=== PATIENT | male | born 1960 | race Caucasian/White ===

== ENCOUNTER 2020-01-15 06:41 | Inpatient (IN) | payer MEDICARE, SELFPAY ==
[2020-01-15] VITALS (36 sets, daily range): BP systolic 63–184; BP diastolic 46–104; PULSE 89–146; RESP 11–20; TEMP 36.8–38.7; O2SAT 87–100; BMI 30.9
--- NOTE | ~2020-01-15 | XR_ITS ---
EXAMINATION: XR chest 1V portable DATE: 01/15/2020 07:18 INDICATION: Altered mental status. Shortness of breath. TECHNIQUE: frontal view of the chest was obtained. COMPARISON: Chest radiograph dated 01/24/2015 FINDINGS: Pulmonary vascular congestion. Bronchial wall thickening no pleural effusion or pneumothorax. And mil d increased interstitial pattern in the right infrahilar region. The cardiomediastinal silhouette is normal. Tubing likely external to the patient projects over the region of the thoracic inlet. IMPRESSION: 1. Pulmonary vascular congestion with bronchial wall thickening and increased interstitial pattern in the right infrahilar region which could represent mild pulmonary edema or pneumonia. Reviewed, dictated and finalized at location A. IMPRESSION: 1. Pulmonary vascular congestion with bronchial wall thickening and increased i nterstitial pattern in the right infrahilar region which could represent mild p ulmonary edema or pneumonia.
--- NOTE | ~2020-01-15 | XR_ITS ---
XR abdomen NG/feed tube insert DATE: 01/15/2020 11:54 INDICATION: Orogastric tube placement TECHNIQUE: Portable AP supine view on 01/15/2020 at 1151 hours COMPARISON: None FINDINGS: The orogastric tube is present in the mid body of the stomach. Right subclavian central venous catheter tip overlies the very upper right atrium. Status post cholecystectomy. IMPRESSION: Orogastric tube in mid body of stomach Reviewed, dictated and finalized at Location A. Reviewed, dictated and finalized at location B.
--- NOTE | ~2020-01-15 | XR_ITS ---
EXAMINATION: XR chest 1V portable DATE: 01/28/2020 11:44 INDICATION: Pneumonia. TECHNIQUE: A single frontal view of the chest was obtained. COMPARISON: Chest single view 01/25/2020 FINDINGS: There are mild airspace opacities in right lower lung zone. No pleural effusion or pneumoth orax. The heart size is normal. Surgical clips in the right upper quadrant are likely from cholecyste ctomy. IMPRESSION: 1. Improved mild airspace opacities in right lower lung zone, consistent with atelectasis versus pneu monia. Reviewed, dictated and finalized at location A. IMPRESSION: 1. Improved mild airspace opacities in right lower lung zone, consistent with a telectasis versus pneumonia.
--- NOTE | ~2020-01-15 | CT_ITS ---
EXAMINATION: CT brain wo con DATE: 01/15/2020 07:55 INDICATION: Altered mental status. Hypoxia. Unresponsive. TECHNIQUE: Computed tomography (CT) of the head was performed without intravenous contrast. Sagittal and coronal reconstructions were performed. The mA was adjusted according to patient size. Iterative reconstruction technique was employed. The dose-length product was 681.00 mGy-cm. COMPARISON: None FINDINGS: Large regions of encephalomalacia in the right frontal and parietal lobes consistent with chronic inf arct in the right middle cerebral artery vascular distribution. Additional old lacunar infarct in the left lentiform nucleus. There is mild scattered white matter hypoattenuation consistent with chronic small vessel ischemic disease. No acute intracranial hemorrhage, acute infarction or abnormal extra axial fluid collection. Ventricles are normal and symmetric. No mass/mass effect. Mild mucosal thicke leatha the paranasal sinuses. The orbits and mastoid air cells are normal. Intracranial calcified cereb ral atherosclerosis is noted. Suboccipital subcutaneous hematoma. No fracture. IMPRESSION: 1. No fracture or acute intracranial process. 2. Chronic infarcts involving significant portion of the right frontal and parietal lobes in the righ t middle cerebral artery vascular redistribution. 3. Small old lacunar infarct at the left lentiform nucleus. 4. Mild scattered white matter hypoattenuation consistent with chronic small vessel ischemic disease. Reviewed, dictated and finalized at location A. IMPRESSION: 1. No fracture or acute intracranial process. 2. Chronic infarcts involving significant portion of the right frontal and camelia etal lobes in the right middle cerebral artery vascular redistribution. 3. Small old lacunar infarct at the left lentiform nucleus. 4. Mild scattered white matter hypoattenuation consistent with chronic small ve ssel ischemic disease.
--- NOTE | ~2020-01-15 | XR_ITS ---
XR chest 1V portable DATE: 01/20/2020 06:14 INDICATION: Pneumonia TECHNIQUE: Portable upright AP chest on 01/20/2020 at 0509 hours COMPARISON: 01/19/2020 portable AP chest at 0537 hours FINDINGS: Endotracheal tube in satisfactory position. NG tube in stomach. Right subclavian central ve nous catheter at superior cavoatrial junction approximately. There are bilateral pulmonary infiltrates involving primarily the lower lung zones. Mild pleural effu sions. IMPRESSION: No significant change since 01/19/2020 Reviewed, dictated and finalized at location A.
--- NOTE | ~2020-01-15 | US_ITS ---
US venous doppler [facility] DATE: 01/21/2020 10:59 INDICATION: Elevated white blood cell count. Diabetes mellitus. TECHNIQUE: Real-time and color flow imaging and Doppler analysis COMPARISON: None FINDINGS: The greater saphenous veins are patent. There is spontaneous and phasic flow and normal aug mentation and color flow signal and normal compression of the deep veins of both lower extremities. T here is limited evaluation of left popliteal vein; otherwise no deep venous thrombosis is evident. IMPRESSION: Limited evaluation of left popliteal vein; otherwise no evidence of deep venous thrombosi s of either lower extremity Reviewed, dictated and finalized at Location A. Reviewed, dictated and finalized at location A. IMPRESSION: Limited evaluation of left popliteal vein; otherwise no evidence of deep venous thrombosis of either lower extremity
--- NOTE | ~2020-01-15 | XR_ITS ---
XR chest 1V portable DATE: 01/21/2020 06:03 INDICATION: Pneumonia. Acute respiratory failure. TECHNIQUE: Portable AP chest on 01/21/2020 at 0512 hours COMPARISON: 01/20/2020 portable AP chest at 0509 hours FINDINGS: Endotracheal tube in satisfactory position 4 cm above raheem. NG tube in gastric fundus. Ri ght subclavian central venous catheter in caudal aspect of superior vena cava. Normal heart size. Aortic arch calcification. Right mid and lower and left lower lung infiltrate and/or atelectasis and probable mild bilateral ple ural effusions, right greater than left. Diffuse osteopenia. IMPRESSION: Bilateral infiltrates and small pleural effusions, right greater than left; little interv al change since 01/20/2020 Reviewed, dictated and finalized at location A. IMPRESSION: Bilateral infiltrates and small pleural effusions, right greater th an left; little interval change since 01/20/2020
--- NOTE | ~2020-01-15 | XR_ITS ---
EXAMINATION: XR chest 1V portable DATE: 01/22/2020 06:03 INDICATION: Pneumonia. Acute respiratory failure. TECHNIQUE: A single frontal view of the chest was obtained. COMPARISON: Chest single view 01/21/2020, chest CT 01/21/2020 FINDINGS: There are small pleural effusions. There are airspace opacities in the lower lung zones. No pneumothorax. The heart size is normal. The endotracheal tube tip is 3.9 cm above the raheem. The na sogastric tube tip is in the stomach. A right subclavian central venous catheter is seen with tip at the superior cavoatrial junction. IMPRESSION: 1. Stable airspace opacities in the lower lung zones, consistent with atelectasis versus pneumonia. 2. Small pleural effusions with improvement on the right. Reviewed, dictated and finalized at location A. IMPRESSION: 1. Stable airspace opacities in the lower lung zones, consistent with atelectas is versus pneumonia. 2. Small pleural effusions with improvement on the right.
--- NOTE | ~2020-01-15 | CT_ITS ---
EXAMINATION: CT chest abdomen pelvis wo con EXAM DATE: 01/21/2020 13:53 INDICATION: Sepsis, respiratory failure. TECHNIQUE: Spiral CT of the chest, abdomen and pelvis was performed without contrast. Axial, lee l and sagittal images were reviewed. Coronal maximum intensity pixel images of chest reviewed. The dose-length product (DLP) for this examination was 1734.01 mGy-cm. The exposure was tailored accordi ng to patient size (auto mA exposure control), and iterative reconstruction (ASIR) was used as additi onal dose reduction technique. There is no prior study for comparison. FINDINGS: CHEST: There is an endotracheal tube in position. Feeding tube is also in position. Small to modera te right, small left pleural effusions. There is multi segmental right basilar airspace disease with volume loss, at least partly atelectasis. Superimposed infection also possible. There is subsegmental left lower lobe airspace disease. There is a right-sided IJ venous line. Right middle lobe granuloma . Tracheobronchial tree is patent. There is no mediastinal, hilar or axillary lymphadenopathy. T here is no pneumothorax. Heart normal in size. No evidence of coronary arterial calcification. ABDOMEN PELVIS: There is a left adrenal gland lesion with macroscopic fat measuring 4.7 cm, a myeloli alonzo. Although typically benign, adrenal lesions are sometimes resected when they reach this size. P robable splenectomy, and surgical changes at the splenic tail. Liver, right adrenal gland are unremar kable. Gallbladder not identified, patient likely has had cholecystectomy. There is a 4 mm left inf erior calyceal stone. The prostate is unremarkable. The bladder is collapsed with Leigh catheter ba lloon anchor inside. There is no retroperitoneal or pelvic lymphadenopathy. There is mild scattere d arteriosclerotic disease. The appendix is normal. The stomach and small bowel are unremarkable. There is moderate amount of c olonic stool. Several subacute left rib fractures anteriorly. No free intraperitoneal gas. There are no osteoblastic or osteolytic lesions identified. IMPRESSION: 1. Multisegmental right lower lobe airspace disease, partly atelectasis but also possibly superimpos ed pneumonia. 2. Small to moderate right, small left pleural effusion. 3. Left adrenal gland myelolipoma. Reviewed, dictated and finalized at location A. IMPRESSION: 1. Multisegmental right lower lobe airspace disease, partly atelectasis but al so possibly superimposed pneumonia. 2. Small to moderate right, small left pleural effusion. 3. Left adrenal gland myelolipoma.
--- NOTE | ~2020-01-15 | XR_ITS ---
EXAMINATION: XR chest 1V portable DATE: 01/19/2020 05:50 INDICATION: Pneumonia. TECHNIQUE: A single frontal view of the chest was obtained. COMPARISON: Chest single view 01/18/2020 FINDINGS: There are small pleural effusions. There are airspace opacities in the lower lung zones. No pneumothorax. The heart size is normal. The endotracheal tube tip is 2.8 cm above the raheem. The na sogastric tube tip is beyond the inferior margin of the radiograph, but at least to the stomach. A ri ght subclavian central venous catheter is seen with tip in the superior vena cava. IMPRESSION: 1. Small pleural effusions with worsening on the left. 2. Stable airspace opacities in the lower lung zones, consistent with atelectasis versus pneumonia. Reviewed, dictated and finalized at location A. IMPRESSION: 1. Small pleural effusions with worsening on the left. 2. Stable airspace opacities in the lower lung zones, consistent with atelectas is versus pneumonia.
--- NOTE | ~2020-01-15 | XR_ITS ---
EXAMINATION: XR chest 1V portable DATE: 01/23/2020 06:35 INDICATION: Pneumonia. Acute respiratory failure. TECHNIQUE: A single frontal view of the chest was obtained. COMPARISON: Chest single view 01/22/2020, chest CT 01/21/2020 FINDINGS: There is a small right pleural effusion. There are airspace opacities in right lower lung z one. A calcified right lung nodule is consistent with old granulomatous disease. There is prominent e xtrapleural fat on the left. No pneumothorax. The heart size is normal. The endotracheal tube tip is 4.0 cm above the raheem. The nasogastric tube tip is in the stomach. Surgical clips in the right uppe r quadrant are likely from cholecystectomy. A right subclavian central venous catheter is seen with t ip at the superior cavoatrial junction. IMPRESSION: 1. Stable small right pleural effusion. 2. Stable airspace opacities in right lower lung zone, consistent with atelectasis versus pneumonia. Reviewed, dictated and finalized at location A. IMPRESSION: 1. Stable small right pleural effusion. 2. Stable airspace opacities in right lower lung zone, consistent with atelecta sis versus pneumonia.
--- NOTE | ~2020-01-15 | XR_ITS ---
EXAMINATION: XR chest 1V portable DATE: 01/16/2020 00:59 INDICATION: Intubation and nasogastric tube placement TECHNIQUE: frontal view of the chest was obtained. COMPARISON: Chest radiograph dated 01/15/2020 FINDINGS: Endotracheal tube tip appears to been withdrawn slightly now likely slightly above the raheem however the raheem is not clearly visualized. Nasogastric tube tip in proximal side port in the body of the stomach. Right internal jugular central venous catheter with distal tip near the superior cavoatrial junction. Mild bilateral increased perihilar interstitial pattern with bronchial wall thickening. No focal cons olidation, pleural effusion or pneumothorax. The cardiomediastinal silhouette is normal. IMPRESSION: 1. Endotracheal tube has been withdrawn with distal tip likely slightly above the raheem however the raheem is not clearly visualized. Consider repeat chest radiograph as clinically indicated. 2. Mild perihilar interstitial pattern which could represent mild pulmonary edema or bronchitis/bronc hiolitis. Reviewed, dictated and finalized at location A. IMPRESSION: 1. Endotracheal tube has been withdrawn with distal tip likely slightly above t he raheem however the raheem is not clearly visualized. Consider repeat chest r adiograph as clinically indicated. 2. Mild perihilar interstitial pattern which could represent mild pulmonary aislinn ma or bronchitis/bronchiolitis.
--- NOTE | ~2020-01-15 | XR_ITS ---
EXAMINATION: XR chest 1V portable DATE: 01/17/2020 06:07 INDICATION: Pneumonia. TECHNIQUE: A single frontal view of the chest was obtained. COMPARISON: Chest single view 01/16/2020 FINDINGS: There are airspace opacities in right lower lung zone. No pleural effusion or pneumothorax. The heart size is normal. The endotracheal tube tip is 2.3 cm above the raheem. The nasogastric tube tip is in the stomach. A right upper extremity peripherally inserted central venous catheter (PICC) is seen with tip at the superior cavoatrial junction. IMPRESSION: 1. Worsened airspace opacities in right lower lung zone, consistent with atelectasis versus pneumonia . Reviewed, dictated and finalized at location A. IMPRESSION: 1. Worsened airspace opacities in right lower lung zone, consistent with atelec tasis versus pneumonia.
--- NOTE | ~2020-01-15 | XR_ITS ---
EXAMINATION: XR chest ET placement INDICATION: Endotracheal tube insertion and central line placement TECHNIQUE: Portable AP chest at 1021 hours COMPARISON: 0713 hours FINDINGS: Endotracheal tube has been inserted which ends at the origin of the right mainstem bronchus . A right subclavian central venous catheter has been inserted which ends in the distal superior vena cava. A mild diffuse interstitial pattern is unchanged. There is increasing airspace opacity of the right lung apex. The cardiomediastinal silhouette is normal. IMPRESSION: 1. Endotracheal tube ending at the origin of the right mainstem bronchus. These findings were discuss ed with Dr. Chaitanya Brown MD in the Emergency Department at 1039 hours on 01/15/2020. 2. Right subclavian central venous catheter ending in the distal superior vena cava without pneumotho rax. 3. Persistent diffuse interstitial pattern in slight worsening of airspace opacities in the right liyah g apex, consistent with pulmonary edema and/or pneumonia and/or atelectasis. Reviewed, dictated and finalized at location A. IMPRESSION: 1. Endotracheal tube ending at the origin of the right mainstem bronchus. These findings were discussed with Dr. Chaitanya Brown MD in the Emergency Department at 1039 hours on 01/15/2020. 2. Right subclavian central venous catheter ending in the distal superior vena cava without pneumothorax. 3. Persistent diffuse interstitial pattern in slight worsening of airspace opac ities in the right lung apex, consistent with pulmonary edema and/or pneumonia and/or atelectasis.
--- NOTE | ~2020-01-15 | XR_ITS ---
EXAMINATION: XR chest 1V portable DATE: 01/25/2020 06:09 INDICATION: Pneumonia. Acute respiratory failure. TECHNIQUE: A single frontal view of the chest was obtained. COMPARISON: Chest single view 01/24/2020 FINDINGS: There are mild airspace opacities in the lower lung zones. No pleural effusion or pneumotho rax. There is prominent extrapleural fat on the left. The heart size is normal. A right subclavian ce ntral venous catheter is seen with tip at the superior cavoatrial junction. Surgical clips in the rig ht upper quadrant are likely from cholecystectomy. IMPRESSION: 1. Stable mild airspace opacities in the lower lung zones, consistent with atelectasis versus pneumon ia. Reviewed, dictated and finalized at location A. IMPRESSION: 1. Stable mild airspace opacities in the lower lung zones, consistent with atel ectasis versus pneumonia.
--- NOTE | ~2020-01-15 | XR_ITS ---
EXAMINATION: XR barium swallow modified DATE: 01/29/2020 13:47 INDICATION: Dysphagia. TECHNIQUE: The patient was given barium-containing material of multiple consistencies to swallow by t joe speech pathologist while I performed fluoroscopy. Fluoroscopy exposure time was 3.4 minutes. The n umber of fluoroscopy images saved to the PACS was 1. Dose-area product was 3.0631 Gy-cm^2. FINDINGS: There was laryngeal penetration. No aspiration. IMPRESSION: 1. Laryngeal penetration. No aspiration. 2. Please refer to the speech therapy report for recommendations. Reviewed, dictated and finalized at location A.
--- NOTE | ~2020-01-15 | XR_ITS ---
EXAMINATION: XR chest 1V portable DATE: 01/18/2020 05:49 INDICATION: Pneumonia. TECHNIQUE: A single frontal view of the chest was obtained. COMPARISON: Chest single view 01/17/2020 FINDINGS: There are mild airspace opacities in the lower lung zones. There is a small right pleural e ffusion. No pneumothorax. The heart size is normal. The endotracheal tube tip is 1.2 cm above the car amanda. The nasogastric tube tip is in the stomach. A right subclavian central venous catheter is seen w ith tip in the superior vena cava. IMPRESSION: 1. Mild airspace opacities in the lower lung zones with worsening on the left, consistent with atelec tasis versus pneumonia. 2. Small right pleural effusion. Reviewed, dictated and finalized at location A. IMPRESSION: 1. Mild airspace opacities in the lower lung zones with worsening on the left, consistent with atelectasis versus pneumonia. 2. Small right pleural effusion.
--- NOTE | ~2020-01-15 | XR_ITS ---
EXAMINATION: XR chest 1V portable DATE: 01/24/2020 06:02 INDICATION: Pneumonia. Acute respiratory failure. TECHNIQUE: A single frontal view of the chest was obtained. COMPARISON: Chest single view 01/23/2020, chest CT 01/21/2020 FINDINGS: There are airspace opacities in right lower lung zone. There is a small right pleural effus ion. There is prominent extrapleural fat on the left. No pneumothorax. The heart size is normal. The endotracheal tube tip is 4.4 cm above the raheem. The nasogastric tube tip is in the stomach. A right subclavian central venous catheter is seen with tip at the superior cavoatrial junction. IMPRESSION: 1. Stable airspace opacities in right lower lung zone, consistent with atelectasis versus pneumonia. 2. Stable small right pleural effusion. Reviewed, dictated and finalized at location A. IMPRESSION: 1. Stable airspace opacities in right lower lung zone, consistent with atelecta sis versus pneumonia. 2. Stable small right pleural effusion.
--- NOTE | 2020-01-15 06:46 | PC.NURSE ---
Dr Brown at bedside, patient not following commands.
--- NOTE | 2020-01-15 06:51 | ED.AMS ---
HPI - Altered Mental Status General Chief Complaint: Altered Mental Status Stated Complaint: AMS Time Seen by Provider: 01/15/20 06:46 History of Present Illness HPI narrative: 59 m hardly any information available ems reports called them he was confused last night w/ low bs he was confused and decreased responsiveness again this am w/ nl bs ems summoned they report tachy, variable alertness, low sats MD complaint: altered mental status Consistency of symptoms: waxing and waning Context: diabetes Related Data Home Medications Medication Instructions Recorded Confirmed allopurinol 100 PO DAILY 01/15/20 cyclobenzaprine mg 01/15/20 diazepam 10 mg PO TID 01/15/20 01/15/20 fenofibrate 160 mg PO DAILY 01/15/20 01/15/20 metformin 1,000 mg PO BID 01/15/20 01/15/20 midodrine 5 mg PO BID 01/15/20 01/15/20 mirabegron [Myrbetriq] 50 mg PO DAILY 01/15/20 01/15/20 oxycodone myristate [Xtampza ER] mg 01/15/20 pregabalin [Lyrica] 150 mg PO BID 01/15/20 01/15/20 tamsulosin 0.4 mg PO DAILY 01/15/20 01/15/20 venlafaxine 37.5 mg PO BID 01/15/20 01/15/20 zolpidem 10 mg PO HS 01/15/20 01/15/20 Allergies Allergy/AdvReac Type Severity Reaction Status Date / Time naproxen Allergy Intermediate SWELLING Verified 01/15/20 09:13 iohexol Allergy Unknown Verified 01/15/20 09:13 [From contrast - CT, X-RAY] Review of Systems Review of Systems: ROS unobtainable: Yes unobtainable due to medical condition and unobtainable due to mental status PMFSH Social History Social History Spiritual care concerns: No Exam Const: General: ill appearing Nutritional Appearance: well nourished and obese HENMT: Head: normal to inspection Eyes: Conjunctivae: conjunctivae normal Pupils: Equal, round and reactive pupils present Neck: Neck: normal visual inspection and no lymphadenopathy Chest: Chest palpation & inspection: normal inspection of the chest Resp: Effort & Inspection: tachypneic Other: coarse Cardio: Rate: tachycardic GI: Inspection: non-distended GI Palp: Yes Soft to palpation Skin: General skin exam: pallor Wounds: no wounds Neuro: Other: l sided weakness w/ contractures some questionable shaking or sz like activity mainly involving the right side does respond to sternal rubbing, moans Extrem: General: no pedal edema Course Course Emergency Course: d/w kareen gilmore and orquidea francis will go to state lab init resusc w/ restricted fluids given concern for viral pna bp remains wnl hr tachy, responds to small metop dose and unlikely svt, there is a trop leak rec'd az + ceftr able to maintain sats >95% w/ just fm o2 and bipap/nebs avoided again given concern of viral pna no recent lab here, will try [facility] add'l: bp tanked late after metoprolol, poor response to push pressors therefore decision to intubate and place line for possible pressors both done w/ al precautions map ~70 after intubation vented w/ high peep/low tv settings ett pulled back 2 cm Vital Signs Vital signs: Vital Signs Pulse Rate 144 H 01/15/20 06:37 Respiratory Rate 14 01/15/20 06:37 Blood Pressure 184/85 H 01/15/20 06:37 Pulse Oximetry 89 L 01/15/20 06:37 Temperature 38.7 C H 01/15/20 12:17 Pulse Rate 108 H 01/15/20 12:00 Respiratory Rate 16 01/15/20 12:00 Blood Pressure 107/71 01/15/20 12:00 Pulse Oximetry 99 01/15/20 12:00 Procedures Central Line Placement Right SC: Central Line Date: 01/15/20 Central Line Time: 10:00 Time Out Performed: Yes Patient Placed on Monitor/Pulse Ox: Yes Max. Sterile Barrier Technique: Caps, large sterile sheet and hand hygiene Central Line Prep: 2% chlorhexidine scrub and sterile drapes applied Technique: priscilla Local Anesthetic: none Ultrasound Used for Placement: No Central Line Lumen Inserted: triple Post Procedure: sutured in place, good blood
[2020-01-15] MEDS: LACTATED RINGERS 1,000 ML 999 ML IV CONT (06:59)
[2020-01-15] MEDS: LORAZEPAM INJ 2 MG/ML VIAL 1 MG IV PUSH (06:59)
[2020-01-15] MEDS: DEXTROSE 50% 25 GM/50 ML SYRINGE IV PUSH ×2 (06:59→12:43)
--- NOTE | 2020-01-15 07:00 | PC.NURSE ---
Girlfriend states patient was at [facility] 6 days [employer] for not being able to walk, states he was sent home with no diagnosis.
[2020-01-15 07:19] LABS: Alveolar/Arterial O2 Gradient 579.1 mmHg; Base Excess ABG -6.1 mEq/l (+/-2.0); Fractional Inspired Oxygen 100 %; Oxygen Content ABG 18.1 %vol (16.0-22.0); Oxyhemoglobin 87.2 % THb (90.0-100.0); PO2 ABG 65.6 mmHg (80.0-100.0); PO2 FiO2 Ratio Arterial Blood 0.66 %; Total Hemoglobin 14.8 g/dL (12.0-18.0)
[2020-01-15 07:21] LABS: Device NON-REBREATHER MASK; Modified Allen's Test Pass; Oxygen Saturation ABG 86.5 % (95.0-100.0); PCO2 ABG 68.3 mmHg (35.0-45.0); Site Drawn RIGHT RADIAL; pH ABG 7.163 (7.350-7.450)
--- NOTE | 2020-01-15 07:22 | ECG_ITS ---
Measurements Intervals [place] Rate: 142 P: MO: 0 QRS: 33 QRSD: 77 T: 50 QT: 274 QTc: 422 Interpretive Statements SINUS OR ECTOPIC ATRIAL TACHYCARDIA LOW QRS VOLTAGE IN LIMB LEADS BORDERLINE ST-T WAVE ABNORMALITY- INF/LAT LEADS BASELINE ARTIFACT- I, II, III, AVR, AVL, AVF, V1-V6 ABNORMAL ECG Electronically Signed On 01-15-2020 7:24:55 CDT by Phillip Rodriguez D.O.
--- NOTE | 2020-01-15 07:23 | PC.NURSE ---
Report given to EDUARDO Mckeon.
[2020-01-15 07:27] LABS: Basophils Absolute Auto 0.1 K/mm3 (0.0-0.1); Basophils Percent Auto 0.4 % (0.2-1.2); Hematocrit 49.9 % (42.0-52.0); Hemoglobin 15.4 g/dL (14.0-18.0); Immature Granulocyte Percent A 1.4 % (0-0.5); Lymphocytes Absolute Auto 1.59 K/mm3 (0.9-3.2); Lymphocytes Percent Auto 5.4 % (18.3-44.2); Mean Corpuscular HGB Conc 30.9 g/dl (32-36); Mean Corpuscular Hemoglobin 30.4 pg (26-34); Mean Corpuscular Volume 98.6 fl (80-100); Mean Platelet Volume 11.3 fl (7.4-10.4); Monocytes Absolute Auto 2.2 K/mm3 (0.1-0.6); Monocytes Percent Auto 7.6 % (2.6-8.5); Neutrophils Absolute Auto 25.1 K/mm3 (1.3-6.7); Neutrophils Percent Auto 85.2 % (45.5-73.1); Nucleated Red Blood Cells Absolute Auto 0.3 K/mm3 (0.0-0.012); Platelet Count Result 528 k/mm3 (150-375); Red Blood Count 5.06 M/mm3 (4.6-6.20); Red Cell Distribution Width 17.5 % (11.5-14.5); White Blood Count 29.5 K/mm3 (4.5-10.0)
[2020-01-15 07:31] LABS: Add Urine Microscopic? YES; Appearance Urine Clear (Clear); Bacteria Urine Trace /hpf; Bilirubin Urine Negative (Negative); Blood Urine Negative (Negative); Color Urine Yellow (Yellow); Glucose Urine UA 1+ mg/dL (Negative); Hyaline Casts Urine 50+ /lpf; Ketones Urine Negative (Negative); Leukocyte Esterase Ur Negative LEU/UL (Negative); Mucus Urine Rare /lpf; Nitrate Urine Negative (Negative); Protein Urine 1+ mg/dL (Negative); RBC Urine 0-2 /hpf (0-2); Specific Grav Ur 1.018 (1.001-1.035); Squamous Epithelial Cell Urine Rare /hpf (Few); Urobilinogen Urine Negative mg/dL (<2.0); WBC Urine 0-3 /hpf
[2020-01-15 07:42] LABS: Alanine Aminotransferase 20 U/L (4-50); Albumin Level 4.2 g/dL (3.5-5.1); Alkaline Phosphatase 65 U/L (38-126); Aspartate Amino Transferase 33 U/L (17-59); Bilirubin,Total 0.3 mg/dL (0.2-1.3); Blood Urea Nitrogen 36 mg/dL (9-20); Calcium 9.4 mg/dL (8.4-10.2); Carbon Dioxide 29 mmol/L (22-30); Chloride 99 mmol/L (98-107); Estimated CRCL calculation 34 ml/min; Estimated Glomerular Filt Rate 28; Glucose 223 mg/dL (75-110); Lactic Acid Reflex 3.7 mmol/L (0.7-2.1); Potassium 5.8 mmol/L (3.4-5.0); Sodium 138 mmol/L (137-145)
[2020-01-15 07:55] LABS: Troponin I 0.538 ng/mL (0.000-0.034)
[2020-01-15 08:10] LABS: CRP 8.7 mg/dL (<1.0)
[2020-01-15 08:16] LABS: NT Pro B Type Natriuretic Pept 331 PG/ML (5-100)
[2020-01-15 08:27] LABS: Ethanol < 10 mg/dL (<10)
[2020-01-15 08:33] LABS: Beta-Hydroxybutyrate/Acetoacetate 0.17 mmol/L (0.02-0.27)
[2020-01-15 08:45] LABS: Glucose Point of Care 284 (65-105)
[2020-01-15] MEDS: LACTATED RINGERS 1,000 ML 60 ML IV CONT (08:45)
[2020-01-15] MEDS: INSULIN ASPART (*BKC) 100 UNITS/ML SUB-Q ×3 (08:48→16:31)
[2020-01-15] MEDS: METOPROLOL TARTRATE INJ 5 MG/5 ML VIAL IV PUSH (08:52)
--- NOTE | 2020-01-15 09:09 | PC.NURSE ---
Note pt's bp low x2 checks. Pt's HOB lowered and Dr. Brown made aware. No further orders received.
[2020-01-15] MEDS: PHENYLEPHRINE 1,000 MCG/10 ML SYRINGE 100 MCG IV PUSH (09:18)
--- NOTE | 2020-01-15 09:21 | PC.NURSE ---
ERP AWARE OF PT VS INCLUDING LAST BP OF 65/46, NO NEW ORDERS.
--- NOTE | 2020-01-15 09:23 | PC.NURSE ---
Note bp remains low. 200mcg phenylephrine HCL (2cc) given IVP per order Dr. Brown.
--- NOTE | 2020-01-15 09:33 | PC.NURSE ---
Dr. Brown at door, explains to spouse need for central line and intubation. Pt's spouse gives consent to both. Consent for central line explained to spouse. Spouse will exit the building and will self-quarantine with son upon returning home.
--- NOTE | 2020-01-15 09:45 | PC.NURSE ---
Etomidate 10mg given IVP.
--- NOTE | 2020-01-15 09:46 | PC.NURSE ---
Rocuronium 100mg given IVP. All personnel in room in isolation gowns per protocol.
--- NOTE | 2020-01-15 09:47 | PC.NURSE ---
Pt intubated #8F ETT per Dr. Brown. Color change positive on co2 detector. Breath sounds positive ant/lat. Taped at 22cm at lip. CXR for placement confirmation placed.
--- NOTE | 2020-01-15 09:52 | PC.NURSE ---
Vent settings TV 475 PEEP 10 o2 70% rate 12
--- NOTE | 2020-01-15 10:08 | PC.NURSE ---
Attempt to call report to ICU, floor unable to take
--- NOTE | 2020-01-15 10:15 | PC.NURSE ---
Levophed 8mg mixed in 250 NS and initiated at 4mcg/min or 7.5cc/hr
[2020-01-15 10:22] LABS: Reflex Lactic Acid Yes or No Add Lactic
--- NOTE | 2020-01-15 10:23 | PC.NURSE ---
B/p 75/66. Levophed gtt increased to 8mcg/min or 15cc/hr
--- NOTE | 2020-01-15 10:30 | PC.NURSE ---
bp 118/73 levophed decreased to 6mcg/min or 11.3 ml/hr
--- NOTE | 2020-01-15 10:40 | PC.NURSE ---
ETT decreased (pulled) 2cm per order Dr. Brown to 20cm. bp 128/71, levophed decreased to 4mcg/min or 7.5ml/hr.
[2020-01-15] MEDS: NOREPINEPHRINE 8 MG/D5W 250 ML 8 MG/250 ML BAG 7.5 MG IV CONT (11:00)
[2020-01-15] MEDS: SODIUM CHLORIDE 0.9% IV 500 ML IV CONT (11:10)
[2020-01-15 11:32] LABS: Lactic Acid 1.7 mmol/L (0.7-2.1)
[2020-01-15 11:36] LABS: Hematocrit 44.6 % (42.0-52.0); Mean Corpuscular HGB Conc 31.4 g/dl (32-36); Mean Corpuscular Hemoglobin 30.4 pg (26-34); Mean Platelet Volume 11.2 fl (7.4-10.4); Red Cell Distribution Width 17.2 % (11.5-14.5); White Blood Count 34.9 K/mm3 (4.5-10.0)
[2020-01-15 11:51] LABS: Blood Urea Nitrogen 37 mg/dL (9-20); Calcium 8.1 mg/dL (8.4-10.2); Carbon Dioxide 26 mmol/L (22-30); Chloride 99 mmol/L (98-107); Estimated CRCL calculation 38 ml/min; Estimated Glomerular Filt Rate 31; Glucose 365 mg/dL (75-110); Lactate Dehydrogenase 375 U/L (313-618); Potassium 6.6 mmol/L (3.4-5.0); Prothrombin Time 12.6 Seconds (11.1-14.7); Sodium 132 mmol/L (137-145)
[2020-01-15] MEDS: MIDAZOLAM HCL 50 MG in DEXTROSE 5% 90 ML IV CONT (12:00)
[2020-01-15] MEDS: LACTATED RINGERS 1,000 ML 50 ML IV CONT (12:00)
[2020-01-15 12:02] LABS: Band Neutrophils Percent 9 % (0-6); Lymphocytes Absolute Manual 0.69 K/mm3 (1.1-4.5); Monocytes Absolute Manual 1.04 K/mm3 (0.1-0.90); Monocytes Percent Manual 3 % (3-9); Neutrophils Absolute Manual 33.15 K/mm3 (1.3-6.7); Neutrophils Percent Manual 86 % (46-73); Platelet Clumps Present; Platelet Estimate Adequate (Adequate); Total Cells Counted 100
--- NOTE | 2020-01-15 12:21 | WPDCNINT ---
Assessment and Plan Assessment and plan (1) Acute respiratory failure: Qualifiers: Respiratory failure complication: hypoxia and hypercapnia Qualified Code(s): J96.01 - Acute respiratory failure with hypoxia; J96.02 - Acute respiratory failure with hypercapnia Code(s): J96.00 - Acute respiratory failure, unspecified whether with hypoxia or hypercapnia Status: Acute Assessment and Plan: patient presented with cough, fevers, altered mental status. Chest x-ray showed pulmonary edema/pneumonia. Lymphopenia, elevated CRP, normal LDH, leukocytosis - initial ABGs showed hypercapnic and hypoxic respiratory failure, patient was intubated placed on full mechanical ventilation. - Chest x-ray and repeat ABGs reviewed, ventilator adjusted, low tidal volume strategy and high peep will be utilized - start fentanyl and Versed infusion for sedation, maintain RASS of -2 for adequate ventilator synchrony - Covid 19 swab sent to the state lab on 01/15/2020 - patient started on ceftriaxone and azithromycin (2) Septic shock: Code(s): A41.9 - Sepsis, unspecified organism; R65.21 - Severe sepsis with septic shock Status: Acute Assessment and Plan: patient with hypotension, tachycardia, leukocytosis, elevated lactic acid, acute kidney injury - patient was given 1 L IV fluids in the ED, will given additional 500 mL IV fluid bolus in the ICU - will keep patient on the dry side - central line inserted on 01/15/2020, started on Levophed, will maintain greater than 65 mmHg for adequate end organ perfusion - repeat lactic acid has normalized - blood cultures have been obtained - patient on prednisone at home, will place patient on Solu-Medrol - patient also on midodrine 5 mg BID AT HOME (3) Altered mental status: Qualifiers: Altered mental status type: unspecified Qualified Code(s): R41.82 - Altered mental status, unspecified Code(s): R41.82 - Altered mental status, unspecified Status: Acute Assessment and Plan: altered mental status likely related to hypercapnic respiratory failure with pH of 7.16 - patient also has a history of opioid use and cannabis and his U tox when he was at [facility] in November 2019. - Will continue to treat underlying causes (4) Pneumonia: Qualifiers: Pneumonia type: due to unspecified organism Lung location: unspecified part of lung Laterality: unspecified laterality Qualified Code(s): J18.9 - Pneumonia, unspecified organism Code(s): J18.9 - Pneumonia, unspecified organism Status: Acute Assessment and Plan: chest x-ray shows pulmonary edema versus pneumonia, - patient on ceftriaxone and azithromycin (5) Acute kidney injury: Code(s): N17.9 - Acute kidney failure, unspecified Status: Acute Assessment and Plan: patient presented with acute kidney injury, no known history of of kidney disease ( last known creatinine was 0.8 on 12/04/2019) - patient with a creatinine 2.4 and a potassium level of 6.6 - will treat hyperkalemia - continue to monitor urine output, renal function electrolytes (6) Elevated troponin: Code(s): R79.89 - Other specified abnormal findings of blood chemistry Status: Acute Assessment and Plan: elevated troponin, 0.538. This could be related to type 2 infarction, EKG showed borderline ST T wave abnormality in the inferior lateral leads with sinus tachycardia - will repeat troponin (7) DVT prophylaxis: Code(s): Z29.9 - Encounter for prophylactic measures, unspecified Status: Acute Assessment and Plan: DVT prophylaxis: Heparin SQ stress ulcer prophylaxis: Protonix (8) Diabetes mellitus with hyperglycemia: Qualifiers: Diabetes mellitus type: type 2 Diabetes mellitus nursing home insulin use: with ferry terminal agent use Qualified Code(s): E11.65 - Type 2 diabetes mellitus with hyperglycemia; Z79.4 - Long
[2020-01-15] MEDS: INSULIN HUMAN REGULAR (*BKC) 100 UNITS/ML 10 UNITS IV PUSH (12:43)
[2020-01-15] MEDS: SODIUM BICARBONATE 8.4% 50 MEQ/50 ML VIAL IV PUSH (12:43)
[2020-01-15] MEDS: SODIUM POLYSTYRENE SULFONONATE 15 GM/60 ML BTL PO (12:43)
[2020-01-15 12:45] LABS: Alveolar/Arterial O2 Gradient 435.5 mmHg; Fractional Inspired Oxygen 90 %; HCO3 ABG 22.3 mEq/l (22.0-26.0); Oxygen Content ABG 20.1 %vol (16.0-22.0); Oxygen Saturation ABG 98.7 % (95.0-100.0); Oxyhemoglobin 97.5 % THb (90.0-100.0); PCO2 ABG 49.8 mmHg (35.0-45.0); PO2 ABG 155.2 mmHg (80.0-100.0); PO2 FiO2 Ratio Arterial Blood 1.72 %; Total Hemoglobin 14.5 g/dL (12.0-18.0)
[2020-01-15 12:49] LABS: Arterial Blood Gas Ventilator rate 18 /MIN; Device VENTILATOR; Modified Allen's Test Pass; Site Drawn RIGHT RADIAL; pH ABG 7.269 (7.350-7.450)
[2020-01-15 12:50] LABS: Arterial Blood Gas Minute Volume 0 LPM; Arterial Blood Gas PEEP 10 cmH2O; Arterial Blood Gas Pressure Support 0 cmH2O; Arterial Blood Gas Tidal Volume 450 ml; Arterial Blood Gas Vent Mode CMV; Peak Inspiratory Pressure 0 cmH2O
[2020-01-15] MEDS: CALCIUM GLUCONATE 1,000 MG/10 ML VIAL 1000 MG IV PUSH (13:00)
[2020-01-15 13:21] LABS: Troponin I 0.967 ng/mL (0.000-0.034)
--- NOTE | 2020-01-15 13:37 | PM.IMHP ---
H&P: HPI History of Present Illness Chief complaint: AMS/hypercapnic respiratory failure/DM Narrative: Jeremías Gaines is a 59 year old male came to the hospital day due to altered mental status. The patient was confused and had decreased responsiveness this morning with normal blood sugars. He was tachycardic his O2 saturations were low. He has a history of having obstructive sleep apnea being noncompliant with his CPAP machine. The patient was discharge from [facility] on 12/04/2019 for urinary tract infection. An echo was performed at [facility] at that time which shows diastolic dysfunction with the EF of 60-65%. That he was at [facility] and discharged with pain medication on 01/11/2020. Today the the patient complained of fever for few days was found to be less responsive. Patient was hypoxic and hypercapnic. Patient was tachycardiac and was given Lopressor 5 mg IV x1 which dropped his blood pressure. LDH 375. Influenza a and B were found to be negative in the emergency room. The patient was intubated in the ER and a central line was placed. Patient is on Levophed. He is now intubated and sedated. Covid 19 screening questionnaire was completed and the patient was eligible for testing. A swab was sent to the [facility] for screening. Patient was placed on isolation. Was read as pulmonary vascular congestion bronchial wall thickening and increased interstitial pattern in the right infrahilar region which could represent mild pulmonary edema or pneumonia. Head CT was read as no fracture or acute intracranial process. Chronic infarcts involving significant portion the right frontal parietal lobes in the right middle cerebral artery vascular redistribution. Small old lacunar infarct at the left lentiform nucleus. Mild scattered white matter hypoattenuation consistent with chronic small-vessel ischemic disease. Patient was given a bolus of IV fluids. He was given a Zithromax and Rocephin. Was noted to be 6.6 and he was given a concoction of IV insulin, D50 and sodium bicarb and Kayexalate. Date of service 01/15/2020. Review of Systems Review of Systems: Narrative: Patient is intubated and sedated. All systems reviewed & are unremarkable except as noted in HPI and below ROS unobtainable: Yes unobtainable due to endotracheal tube Constitutional: Constitutional: Reports as per HPI and Reports no additional constitutional complaints Eyes: Eyes: Reports as per HPI and Reports no additional eye complaints ENT: Reports system reviewed and no additional complaints, except as documented and Reports Normal hearing present Cardiovascular: Cardiovascular: Reports no additional cardiovascular complaints Respiratory: Respiratory: Reports no additional respiratory complaints and Reports no additional respiratory complaints Gastrointestinal: Gastrointestinal: Reports as per HPI and Reports no additional gastrointestinal complaints Musculoskeletal: Musculoskeletal: Reports no additional musculoskeletal complaints Integumentary/Breasts: Skin/Breast: Reports system reviewed and no additional complaints, except as docu and Reports as per HPI Neurologic: Reports system reviewed and no additional complaints, except as documented, Reports as per HPI and Reports Normal hearing present Psychiatric: Psychiatric: Reports no additional psychiatric complaints and Reports as per HPI Endocrine: Endocrine: Reports no additional endocrine complaints Hematologic/Lymphatic: Hematologic/Lymphatic: Reports no additional hematologic/lymphatic complaints Allergic/Immunologic: Allergic/Immunologic: Reports no additional allergic/immunologic complaints FORMERLY [facility], [facility] Past Medical History Medical History (Updated 01/15/20 @ 14:14 by Yissel James NP) Anemia Anxiety BPH (benign prostatic hyperplasia) Congestive heart failure Diastolic dysfunction Depression DM2 (diabetes mellitus, type 2) Enterobacter sepsis UTI History of CVA (cerebro
--- NOTE | 2020-01-15 15:27 | ADMGEN ---
This patient, Jeremías Gaines, was admitted to Intensive Care Unit-4. Patient/family oriented to hospital policies and general routines including ID bracelet, bed and alarms, visiting hours, pain management, procedures, bathroom and other care routines, personal items, smoking policy, room service/diet, and visiting hours. Valuables list has been completed. Information on how to activate the Rapid Response Team has been discussed. Patient/Family are encouraged to report perceived risks to care and to ask questions if they do not understand what they are told or what they should do.
[2020-01-15] MEDS: methylPREDNISolone SOD SUCC 40 MG VIAL IV PUSH ×2 (16:30→18:21)
[2020-01-15 16:34] LABS: Glucose Point of Care 222 (65-105)
[2020-01-15] MEDS: HEPARIN SODIUM 5,000 UNITS/ML VIAL 5000 UNITS SUB-Q (20:35)
[2020-01-16] VITALS (20 sets, daily range): BP systolic 109–142; BP diastolic 60–78; PULSE 69–119; RESP 18–27; TEMP 35.8–38.7; O2SAT 95–98; BMI 35.6
--- NOTE | 2020-01-16 00:40 | P.PCNBED_ITS ---
Procedures Intubation: Intubation Date: 01/16/20 Intubation Time: 00:40 A pre- procedural Time-Out was completed immediately before starting the procedure and confirmed: Patient Identification, Site, Procedure, Patient Position and the Availability of Requisite Equipment: Yes Sedative: etomidate Mg given: 20 Paralytic: succinylcholine Mg given: 150 Laryngoscope: fiber optic video scope ET tube size: 8 Tube secured depth (cm): 24 Tube secured locati on: lips Tube placement confirmation: visualized tube passing through cords, equal breath sounds bilaterally, no breath sounds over epigastrium and confirmation by capnometry Patient tolerated procedure: well Intubation complications: none Additional comments: Date of service was 01/16/2020 at 00:20 hrs.
[2020-01-16] MEDS: PROPOFOL IV EMULSION 100 ML 18.1 MG IV CONT ×4 (00:48→23:48)
--- NOTE | 2020-01-16 01:01 | PCRCNOTE ---
CALLED TO PT ROOM FOR SELF-EXTUBATION. BREATHS ASSISTED VIA BVM. PT REINTUBATED WITH 8.0 ETT, 24@LIP. VERIFIED BY CO2 DETECTOR, ETCO2, AND CXR.
[2020-01-16] MEDS: methylPREDNISolone SOD SUCC 40 MG VIAL IV PUSH ×5 (01:02→23:48)
[2020-01-16] MEDS: INSULIN ASPART (*BKC) 100 UNITS/ML SUB-Q ×5 (01:04→23:47)
[2020-01-16 01:37] LABS: Glucose Point of Care 283 (65-105)
[2020-01-16] MEDS: PROPOFOL IV EMULSION 100 ML 21.1 MG IV CONT (03:36)
[2020-01-16 05:30] LABS: Alveolar/Arterial O2 Gradient 355.1 mmHg; Base Excess ABG 2.7 mEq/l (+/-2.0); Carboxyhemoglobin 0.3 % THb (0-2.0); Device VENTILATOR; Fractional Inspired Oxygen 70 %; HCO3 ABG 26.7 mEq/l (22.0-26.0); Methemoglobin ABG 0.4 %THb (0-1.5); Modified Allen's Test Pass; Oxygen Content ABG 19.1 %vol (16.0-22.0); Oxygen Saturation ABG 97.9 % (95.0-100.0); Oxyhemoglobin 96.7 % THb (90.0-100.0); PCO2 ABG 38.8 mmHg (35.0-45.0); PO2 ABG 102.3 mmHg (80.0-100.0); PO2 FiO2 Ratio Arterial Blood 1.46 %; Reduced Hemoglobin 2.6 %THb (0-5.0); Site Drawn RIGHT RADIAL; pH ABG 7.455 (7.350-7.450)
[2020-01-16 05:31] LABS: Arterial Blood Gas PEEP 10 cmH2O; Arterial Blood Gas Tidal Volume 450 ml; Arterial Blood Gas Vent Mode CMV; Arterial Blood Gas Ventilator rate 18 /MIN
[2020-01-16] MEDS: MIDAZOLAM HCL 50 MG in DEXTROSE 5% 90 ML 10 MG IV CONT ×2 (05:36→19:32)
[2020-01-16] MEDS: LACTATED RINGERS 1,000 ML 50 ML IV CONT (05:37)
[2020-01-16 06:10] LABS: Hematocrit 40.3 % (42.0-52.0); Hemoglobin 12.9 g/dL (14.0-18.0); Mean Corpuscular Hemoglobin 30.1 pg (26-34); Mean Corpuscular Volume 93.9 fl (80-100); Mean Platelet Volume 11.5 fl (7.4-10.4); Platelet Count Result 447 k/mm3 (150-375); Red Blood Count 4.29 M/mm3 (4.6-6.20); Red Cell Distribution Width 16.8 % (11.5-14.5); White Blood Count 32.8 K/mm3 (4.5-10.0)
[2020-01-16 06:19] LABS: Alanine Aminotransferase 18 U/L (4-50); Albumin Level 3.1 g/dL (3.5-5.1); Alkaline Phosphatase 48 U/L (38-126); Aspartate Amino Transferase 38 U/L (17-59); Bilirubin,Total 0.4 mg/dL (0.2-1.3); Blood Urea Nitrogen 33 mg/dL (9-20); Calcium 8.8 mg/dL (8.4-10.2); Carbon Dioxide 30 mmol/L (22-30); Chloride 102 mmol/L (98-107); Estimated CRCL calculation 63 ml/min; Estimated Glomerular Filt Rate 57; Glucose 284 mg/dL (75-110); Magnesium 1.1 mg/dL (1.6-2.3); Phosphorus 2.2 mg/dL (2.5-4.5); Potassium 4.5 mmol/L (3.4-5.0); Sodium 134 mmol/L (137-145)
[2020-01-16 06:22] LABS: Lactic Acid 1.7 mmol/L (0.7-2.1)
[2020-01-16 06:47] LABS: Hemoglobin A1C 8.3 % (<5.7)
[2020-01-16 07:58] LABS: Glucose Point of Care 259 (65-105)
--- NOTE | 2020-01-16 07:59 | PC.NURSE ---
Patient self extubated at 0015, found with Ettube out and still restraint. Dr carvajal called and respiratory to reintubate patient. Patient intubated 8.0 at 26 at lip. xray taken and dr carvajal comfirmed tube placement.
[2020-01-16] MEDS: MAGNESIUM SULF 2 GM/WATER 50ML 2 GM/50 ML BAG IVPB (08:39)
[2020-01-16] MEDS: HEPARIN SODIUM 5,000 UNITS/ML VIAL 5000 UNITS SUB-Q ×2 (09:05→20:14)
[2020-01-16] MEDS: PANTOPRAZOLE SODIUM IV 40 MG VIAL IV PUSH (09:09)
[2020-01-16] MEDS: INSULIN GLARGINE (*BKC) 100 UNITS/ML 8 UNITS SUB-Q (09:09)
--- NOTE | 2020-01-16 11:21 | PCDIET ---
Nutrition Follow-Up Complete: Nutrition Diagnosis: Inadequate oral intake related to oral intubation as evidenced by NPO status. Nutrition Goal: Patient to meet estimated nutritional needs. Goal in progress. MD ordering Glucerna 1.2 at 60mL/hr goal rate which will provide 1584kcal (2141kcal with Propofol at current rate), 79g protein and 1062mL free water over 22 hour period. Recommend 30mL water flush every 4 hours. Last recorded weight is 103.3 kg which is increased from last review. +I/O noted. Bowel Motility: No documented bowel movement yet. Labs Reviewed: Glu (259), BUN (33), Na (134), Alb (3.1), PO4 (2.2), Mg (1.1) Meds Noted: Novolog, Solu Medrol, Zithromax, Lantus, Versed, Rocephin, LR at 50mL/hr, Fentanyl, Magnesium Sulfate, Protonix, Propofol at 21.1mL/hr (557kcal over 24 hour period) Additional Notes: Abrasion to left knee. No pressure sores reported. Recommend replacing electrolytes as medically appropriate. Nutrition Monitoring and Evaluation: Follow up every Wednesday/Wednesday. Follow daily in ICU rounds.
--- NOTE | 2020-01-16 11:23 | WPDINTPN ---
Progress Note: A&P Assessment and Plan (1) Acute respiratory failure: Qualifiers: Respiratory failure complication: hypoxia and hypercapnia Qualified Code(s): J96.01 - Acute respiratory failure with hypoxia; J96.02 - Acute respiratory failure with hypercapnia Code(s): J96.00 - Acute respiratory failure, unspecified whether with hypoxia or hypercapnia Status: Acute Assessment and Plan: patient initially presented with cough, fevers, altered mental status. Chest x-ray showed pulmonary edema/pneumonia. Lymphopenia, elevated CRP, normal LDH, leukocytosis - initial ABGs showed hypercapnic and hypoxic respiratory failure, patient was intubated on 01/15/2020 and placed on full mechanical ventilation. - Chest x-ray and repeat ABGs reviewed, ventilator adjusted, low tidal volume strategy and high peep strategy - continue fentanyl, Versed and propofol for sedation maintain RASS of -2 for adequate ventilator synchrony - Covid 19 swab sent to the state lab on 01/15/2020 - currently being treated for viral - patient started on ceftriaxone and azithromycin (2) Septic shock: Code(s): A41.9 - Sepsis, unspecified organism; R65.21 - Severe sepsis with septic shock Status: Acute Assessment and Plan: OFF LEVOPHED: patient with hypotension, tachycardia, leukocytosis, elevated lactic acid, acute kidney injury - patient was given IV fluids cautiously the ED. - will keep patient on the dry side - central line inserted on 01/15/2020, Currently off Levophed - WBC count trending down lactic acid has normalized - preliminary blood culture negative x2 - patient on prednisone at home, will place patient on Solu-Medrol - patient also on midodrine 5 mg BID AT HOME (3) Altered mental status: Qualifiers: Altered mental status type: unspecified Qualified Code(s): R41.82 - Altered mental status, unspecified Code(s): R41.82 - Altered mental status, unspecified Status: Acute Assessment and Plan: altered mental status likely related to hypercapnic respiratory failure with pH of 7.16 - patient also has a history of opioid use and cannabis and his U tox when he was at [facility] in November 2019. - Will continue to treat underlying causes (4) Pneumonia: Qualifiers: Laterality: unspecified laterality Lung location: unspecified part of lung Pneumonia type: due to unspecified organism Qualified Code(s): J18.9 - Pneumonia, unspecified organism Code(s): J18.9 - Pneumonia, unspecified organism Status: Acute Assessment and Plan: chest x-ray shows pulmonary edema versus pneumonia, - patient on ceftriaxone and azithromycin (5) Acute kidney injury: Code(s): N17.9 - Acute kidney failure, unspecified Status: Acute Assessment and Plan: patient presented with acute kidney injury, no known history of of kidney disease ( last known creatinine was 0.8 on 12/04/2019) - creatinine 1.3 this morning. , lactic acid has normalized - HYPERKALEMIA: resolved - continue to monitor urine output, renal function electrolytes (6) Elevated troponin: Code(s): R79.89 - Other specified abnormal findings of blood chemistry Status: Acute Assessment and Plan: elevated troponin, 0.538. This could be related to type 2 infarction, EKG showed borderline ST T wave abnormality in the inferior lateral leads with sinus tachycardia - will repeat troponin (7) DVT prophylaxis: Code(s): Z29.9 - Encounter for prophylactic measures, unspecified Status: Acute Assessment and Plan: DVT prophylaxis: Heparin SQ stress ulcer prophylaxis: Protonix (8) Diabetes mellitus with hyperglycemia: Qualifiers: Diabetes mellitus type: type 2 Diabetes mellitus intermediate teacher insulin use: with intermediate teacher use Qualified Code(s): E11.65 - Type 2 diabetes mellitus with hyperglycemia; Z79.4 - terminal operator (current)
[2020-01-16 13:29] LABS: Glucose Point of Care 305 (65-105)
--- NOTE | 2020-01-16 16:49 | PM.IMPN ---
Progress Note: A&P Assessment and Plan (1) Acute respiratory failure: Qualifiers: Respiratory failure complication: hypoxia and hypercapnia Qualified Code(s): J96.01 - Acute respiratory failure with hypoxia; J96.02 - Acute respiratory failure with hypercapnia Code(s): J96.00 - Acute respiratory failure, unspecified whether with hypoxia or hypercapnia Status: Acute Assessment and Plan: The patient is sedated and intubated. Sedation and ventilator settings per Dr. Beltre.covid 19 swab was obtained and sent to the state lab for results. He was placed in isolation. Fentanyl Versed were started. patient was started on ceftriaxone in a Zithromax and azithromycin. Patient is hypercapnic. Patient is supported with vasopressors. 01/16/20 16:49 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 emergency depart patient was hypoglycemic with blood sugar of 42 and response patient was treated and his blood sugar did improve however he remained unresponsive he was brought to the emergency department for further evaluation no detail was available as patient was not able to provide any history, ABG showed patient patient was hypoxic hypercapnic respiratory failure and unresponsive patient was intubated in the ER was also found have hypotension and central line was placed, patient was transferred to ICU concern the patient may be positive for Covid 19 patient is isolated and on the precautions are taken, currently patient on vent unable to provide any review of symptoms (2) Pneumonia: Qualifiers: Laterality: unspecified laterality Lung location: unspecified part of lung Pneumonia type: due to unspecified organism Qualified Code(s): J18.9 - Pneumonia, unspecified organism Code(s): J18.9 - Pneumonia, unspecified organism Status: Acute Assessment and Plan: Patient is on a is a mycin Rocephin. Cultures are pending. Repeat lactic. Patient is septic. His tachycardia but he has a history of having tachycardia. And he is hypotensive. Patient is given 1 L of fluids in the emergency room additional 500 mL bolus in the ICU. Patient is to be kept on the dry side since he is being a rule out for covid 19. (3) Acute kidney injury: Code(s): N17.9 - Acute kidney failure, unspecified Status: Acute Assessment and Plan: Potassium was 6.6. He was given a concoction in the emergency room. Repeat BMP. Creatinine 2.2 now. Gently hydrate the patient if needed. Likely secondary to dehydration as patient kidney function is improved with IV fluid and his creatinine today is 1.3 (4) Diabetes mellitus with hyperglycemia: Qualifiers: Diabetes mellitus type: type 2 Diabetes mellitus petroleum terminal plant operator insulin use: with residential use Qualified Code(s): E11.65 - Type 2 diabetes mellitus with hyperglycemia; Z79.4 - penitentiary (current) use of insulin Code(s): E11.65 - Type 2 diabetes mellitus with hyperglycemia Status: Acute Assessment and Plan: Accu-Cheks AC and HS. Sliding scale insulin. (5) Congestive heart failure: Code(s): I50.9 - Heart failure, unspecified Status: Chronic Assessment and Plan: Grade 2 diastolic. (6) Obstructive sleep apnea: Code(s): G47.33 - Obstructive sleep apnea (adult) (pediatric) Status: Chronic Assessment and Plan: Patient is not compliant with the CPAP machine (7) HTN (hypertension) with goal to be determined: Code(s): I10 - Essential (primary) hypertension Status: Chronic Assessment and Plan: Patient is hypotensive and is on vasopressors. His home medications are on hold at this time. And seen by cable engineer (8) Depression: Code(s): F32.9 - Major depressive disorder, single episode, unspecified Status: Chronic Assessment and Plan: venlafaxine is on home (9) Anxiety: Code(s): F41.9 - Anxiety disorder, unspecified Status:
[2020-01-16 17:44] LABS: Glucose Point of Care 282 (65-105)
[2020-01-17] VITALS (19 sets, daily range): BP systolic 119–190; BP diastolic 55–106; PULSE 70–130; RESP 18–35; TEMP 36.5–36.9; O2SAT 93–97
--- NOTE | 2020-01-17 | ECHO_ITS ---
Patient Info Name: Jeremías Gaines Age: 59 years : 1960 Gender: Male Ht: 67 in Wt: 228 lbs BSA: 2.25 m2 HR: 86 bpm BP: 143 / 76 mmHg Heart Rhythm: Sinus Rhythm Technical Quality: Good Exam Date: 01/17/2020 10:34 AM Exam Location: [facility] Patient Status: Inpatient Admit Date: 01/15/2020 Staff Ordering Physician: Connor West MD Geochemist: Fer Goncalves RDCS Attending Provider: Rolando Gomez MD Exam Type: CA echo dop color flow w con Study Info Indications I50.9 - Heart failure, unspecified Complete two-dimensional, color flow and Doppler transthoracic echocardiogram is performed with contrast to opacify the left ventrical and to improve the deliniation of the left ventrical endocarial boarders. Contrast/Agitated Saline Contrast/Ag. Saline: Definity Amount: 2.00 ml Administered By: Baldev Stockton, RN Existing IV Access: Yes History/Risk Factors HFpEF; DM2, CVA, HTN, acute respiratory failure, NSTEMI. Summary 1. Normal left ventricular size with mild concentric hypertrophy and good systolic function of all segments. Measured ejection fraction 55%, visual estimate 55-60%. Grade 2 diastolic dysfunction is present. 2. Mild left atrial enlargement. 3. No significant valve disease. 4. Normal sinus rhythm. Left Ventricular Outflow Tract Name Value Normal LVOT 2D LVOT Diameter 1.96 cm LVOT Doppler LVOT Peak Gradient 3 mmHg LVOT Mean Gradient 2 mmHg LVOT VTI 19.21 cm LVOT VTI/AV VTI Ratio 0.77 LVOT Stroke Volume 57.92 ml LVOT CO 4.66 l/min LVOT CI 2.07 L/min/m2 Mitral Valve Name Value Normal MV Doppler MV Decel [place] 542.36 cm/s2 MV PHT 0 s MV Area (PHT) 4.68 cm2 4.00-5.00 MV Diastolic Function MV E Peak Velocity 87.86 cm/s MV A Peak Velocity 103.84 cm/s MV E/A 0.85 MV Decel Time 0 s MV Annular TDI MV E/e' (Septal) 18.65 <=8.00 MV E/e' (Lateral) 11.16 <=8.00 MV E/e' (Average) 14.90 Tricuspid Valve Name Value Normal Estimated PAP/RSVP
[2020-01-17 00:08] LABS: Glucose Point of Care 347 (65-105)
[2020-01-17 04:20] LABS: Hematocrit 40.2 % (42.0-52.0); Hemoglobin 13.1 g/dL (14.0-18.0); Mean Corpuscular HGB Conc 32.6 g/dl (32-36); Mean Platelet Volume 11.1 fl (7.4-10.4); Platelet Count Result 459 k/mm3 (150-375); Red Blood Count 4.37 M/mm3 (4.6-6.20); Red Cell Distribution Width 15.9 % (11.5-14.5); White Blood Count 30.9 K/mm3 (4.5-10.0)
[2020-01-17 04:40] LABS: Alanine Aminotransferase 20 U/L (4-50); Albumin Level 3.1 g/dL (3.5-5.1); Alkaline Phosphatase 65 U/L (38-126); Aspartate Amino Transferase 46 U/L (17-59); Bilirubin,Total 0.4 mg/dL (0.2-1.3); Blood Urea Nitrogen 37 mg/dL (9-20); Calcium 8.8 mg/dL (8.4-10.2); Carbon Dioxide 29 mmol/L (22-30); Chloride 102 mmol/L (98-107); Estimated CRCL calculation 80 ml/min; Estimated Glomerular Filt Rate > 60; Glucose 380 mg/dL (75-110); Magnesium 1.7 mg/dL (1.6-2.3); Phosphorus 3.1 mg/dL (2.5-4.5); Potassium 4.5 mmol/L (3.4-5.0); Sodium 133 mmol/L (137-145)
[2020-01-17 04:41] LABS: Lactic Acid 1.5 mmol/L (0.7-2.1)
[2020-01-17] MEDS: MIDAZOLAM HCL 50 MG in DEXTROSE 5% 90 ML 8 MG IV CONT (04:56)
[2020-01-17] MEDS: PROPOFOL IV EMULSION 100 ML 15.1 MG IV CONT (04:57)
[2020-01-17 04:58] LABS: Base Excess ABG 1.2 mEq/l (+/-2.0); Fractional Inspired Oxygen 40 %; HCO3 ABG 25.2 mEq/l (22.0-26.0); Methemoglobin ABG 0.4 %THb (0-1.5); Oxygen Content ABG 18.9 %vol (16.0-22.0); Oxygen Saturation ABG 97.3 % (95.0-100.0); Oxyhemoglobin 95.9 % THb (90.0-100.0); PCO2 ABG 37.9 mmHg (35.0-45.0); PO2 ABG 91.6 mmHg (80.0-100.0); PO2 FiO2 Ratio Arterial Blood 2.29 %; Reduced Hemoglobin 3.7 %THb (0-5.0)
[2020-01-17] MEDS: INSULIN ASPART (*BKC) 100 UNITS/ML SUB-Q ×4 (04:58→21:16)
[2020-01-17 04:59] LABS: Device VENTILATOR; Modified Allen's Test Pass; Site Drawn RIGHT BRACHIAL
[2020-01-17] MEDS: methylPREDNISolone SOD SUCC 40 MG VIAL IV PUSH ×2 (04:59→17:47)
[2020-01-17 05:00] LABS: Arterial Blood Gas PEEP 10 cmH2O; Arterial Blood Gas Tidal Volume 450 ml; Arterial Blood Gas Vent Mode CMV; Arterial Blood Gas Ventilator rate 18 /MIN
[2020-01-17 05:39] LABS: Glucose Point of Care 306 (65-105)
[2020-01-17] MEDS: HEPARIN SODIUM 5,000 UNITS/ML VIAL 5000 UNITS SUB-Q ×2 (08:10→21:12)
[2020-01-17] MEDS: PANTOPRAZOLE SODIUM IV 40 MG VIAL IV PUSH (08:10)
--- NOTE | 2020-01-17 08:15 | WPDINTPN ---
Progress Note: A&P Assessment and Plan (1) Acute respiratory failure: Qualifiers: Respiratory failure complication: hypoxia and hypercapnia Qualified Code(s): J96.01 - Acute respiratory failure with hypoxia; J96.02 - Acute respiratory failure with hypercapnia Code(s): J96.00 - Acute respiratory failure, unspecified whether with hypoxia or hypercapnia Status: Acute Assessment and Plan: patient initially presented with cough, fevers, altered mental status. Chest x-ray showed pulmonary edema/pneumonia. Lymphopenia, elevated CRP, normal LDH, leukocytosis - COVID-19 PCR Negative. Will discontinue isolation at this point - initial ABGs showed hypercapnic and hypoxic respiratory failure, patient was intubated on 01/15/2020 and placed on full mechanical ventilation. - Chest x-ray and repeat ABGs reviewed, decrease PEEP to 8 - continue fentanyl, Versed and propofol for sedation maintain RASS of -2 for adequate ventilator synchrony - multifactorial secondary to COPD, CHF and community-acquired pneumonia - continue ceftriaxone and azithromycin - continue Lasix - decreased steroids to twice a day (2) Septic shock: Code(s): A41.9 - Sepsis, unspecified organism; R65.21 - Severe sepsis with septic shock Status: Acute Assessment and Plan: Patient presented with hypotension, tachycardia, leukocytosis, elevated lactic acid, acute kidney injury - patient was given IV fluids cautiously in the ED. - will keep patient on the dry side - central line inserted on 01/15/2020, Currently off Levophed - preliminary blood culture negative x2 - patient on prednisone at home, will place patient on Solu-Medrol. IV decrease the dose to twice a day - patient also on midodrine 5 mg BID AT HOME (3) Altered mental status: Qualifiers: Altered mental status type: unspecified Qualified Code(s): R41.82 - Altered mental status, unspecified Code(s): R41.82 - Altered mental status, unspecified Status: Acute Assessment and Plan: altered mental status likely related to hypercapnic respiratory failure with pH of 7.16 - patient also has a history of opioid use and cannabis and his U tox when he was at [facility] in November 2019. 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 - Sedation holiday today. (4) Pneumonia: Qualifiers: Laterality: unspecified laterality Lung location: unspecified part of lung Pneumonia type: due to unspecified organism Qualified Code(s): J18.9 - Pneumonia, unspecified organism Code(s): J18.9 - Pneumonia, unspecified organism Status: Acute Assessment and Plan: chest x-ray shows pulmonary edema versus pneumonia, - patient on ceftriaxone and azithromycin (5) Acute kidney injury: Code(s): N17.9 - Acute kidney failure, unspecified Status: Acute Assessment and Plan: patient presented with acute kidney injury, no known history of of kidney disease ( last known creatinine was 0.8 on 12/04/2019) - creatinine 1 this morning. , lactic acid has normalized - HYPERKALEMIA: resolved - continue to monitor urine output, renal function electrolytes (6) Elevated troponin: Code(s): R79.89 - Other specified abnormal findings of blood chemistry Status: Acute Assessment and Plan: elevated troponin, 0.538. This could be related to type 2 infarction, EKG showed borderline ST T wave abnormality in the inferior lateral leads with sinus tachycardia (7) DVT prophylaxis: Code(s): Z29.9 - Encounter for prophylactic measures, unspecified Status: Acute Assessment and Plan: DVT prophylaxis: Heparin SQ stress ulcer prophylaxis: Protonix (8) Diabetes mellitus with hyperglycemia: Qualifiers: Diabetes mellitus type: type 2 Diabetes mellitus salvage determiner insulin use: with salvage determiner use Qualified Code(s):
[2020-01-17] MEDS: INSULIN GLARGINE (*BKC) 100 UNITS/ML 8 UNITS SUB-Q (08:20)
[2020-01-17] MEDS: PERFLUTREN LIPID MICROSPHERES 1.5 ML VIAL DILUTED TO 10 ML TOTAL VOLUME IV PUSH (10:57)
[2020-01-17] MEDS: PROPOFOL IV EMULSION 100 ML 24.1 MG IV CONT ×2 (11:03→16:12)
--- NOTE | 2020-01-17 11:03 | PCDIET ---
ICU Rounding Note: Patient is tolerating Glucerna 1.2 at 60mL/hr goal rate. No reported residuals. Tube feeding is appropriate, though would consider decreased rate of 50mL/hr with Pro-Stat flush BID to ensure not overfeeding. With current Propofol rate, this would provide 2156kcal and 96g protein daily. If medically appropriate, would also consider medication to promote bowel movement. Last recorded weight is 103.3kg which is stable. Bowel Motility: No documented bowel movement. Labs Reviewed: Glu (306), BUN (37), Na (133), Alb (3.1) Meds Noted: Propofol at 24.1mL/hr (636kcal), Zithromax, Fentanyl, Solu Medrol, Versed, Rocephin, Novolog, Lantus, Levophed, Protonix Additional Notes: Left knee abrasion; no documented pressure ulcers. Following daily in ICU rounds. Assessing/reassessing every Wednesday/Wednesday.
[2020-01-17] MEDS: INSULIN GLARGINE (*BKC) 100 UNITS/ML 10 UNITS SUB-Q (11:06)
[2020-01-17 12:56] LABS: Glucose Point of Care 382 (65-105)
[2020-01-17 12:56] LABS: Procalcitonin <0.10 ng/mL (<0.10)
--- NOTE | 2020-01-17 17:58 | PM.IMPN ---
Progress Note: A&P Assessment and Plan (1) Acute respiratory failure: Qualifiers: Respiratory failure complication: hypoxia and hypercapnia Qualified Code(s): J96.01 - Acute respiratory failure with hypoxia; J96.02 - Acute respiratory failure with hypercapnia Code(s): J96.00 - Acute respiratory failure, unspecified whether with hypoxia or hypercapnia Status: Acute Assessment and Plan: 01/17/20 17:58 The patient is sedated and intubated. Sedation and ventilator settings per Dr. Beltre.covid 19 swab was obtained and sent to the state lab for results. He was placed in isolation. Fentanyl Versed were started. patient was started on ceftriaxone in a Zithromax and azithromycin. Patient is hypercapnic. Patient is supported with vasopressors. 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 [facility] emergency depart patient was hypoglycemic with blood sugar of 42 and response patient was treated and his blood sugar did improve however he remained unresponsive he was brought to the emergency department for further evaluation no detail was available as patient was not able to provide any history, ABG showed patient patient was hypoxic hypercapnic respiratory failure and unresponsive patient was intubated in the ER was also found have hypotension and central line was placed, patient was transferred to ICU concerned the patient may be positive for Covid 19, however patient is Covid 19 is negative, currently patient on vent unable to provide any review of symptoms, repeat chest x-ray shows worsing pneumonia, patient is seen by professor of poultry science. (2) Pneumonia: Qualifiers: Laterality: unspecified laterality Lung location: unspecified part of lung Pneumonia type: due to unspecified organism Qualified Code(s): J18.9 - Pneumonia, unspecified organism Code(s): J18.9 - Pneumonia, unspecified organism Status: Acute Assessment and Plan: Patient is on a is a mycin Rocephin. Cultures are pending. Repeat lactic. Patient is septic. His tachycardia but he has a history of having tachycardia. And he is hypotensive. Patient is given 1 L of fluids in the emergency room additional 500 mL bolus in the ICU. Patient is to be kept on the dry side since he is being a rule out for covid 19. which is negative (3) Acute kidney injury: Code(s): N17.9 - Acute kidney failure, unspecified Status: Acute Assessment and Plan: Potassium was 6.6. He was given a concoction in the emergency room. Repeat BMP. Creatinine 2.2 now. Gently hydrate the patient if needed. Likely secondary to dehydration as patient kidney function is improved with IV fluid and his creatinine today is 1.0 (4) Diabetes mellitus with hyperglycemia: Qualifiers: Diabetes mellitus type: type 2 Diabetes mellitus long wall mining machine helper insulin use: with long wall mining machine helper use Qualified Code(s): E11.65 - Type 2 diabetes mellitus with hyperglycemia; Z79.4 - senior living (current) use of insulin Code(s): E11.65 - Type 2 diabetes mellitus with hyperglycemia Status: Acute Assessment and Plan: Accu-Cheks AC and HS. Sliding scale insulin. (5) Congestive heart failure: Code(s): I50.9 - Heart failure, unspecified Status: Chronic Assessment and Plan: Grade 2 diastolic. (6) Obstructive sleep apnea: Code(s): G47.33 - Obstructive sleep apnea (adult) (pediatric) Status: Chronic Assessment and Plan: Patient is not compliant with the CPAP machine (7) HTN (hypertension) with goal to be determined: Code(s): I10 - Essential (primary) hypertension Status: Chronic Assessment and Plan: Patient is hypotensive and is on vasopressors. His home medications are on hold at this time. And seen by professor of poultry science (8) Depression: Code(s): F32.9 - Major depressive disorder, single episode, unspecified Status: Chronic Assessment and Plan: venlafaxine is on suzanne
[2020-01-17 18:13] LABS: Glucose Point of Care 313 (65-105)
[2020-01-17 21:24] LABS: Glucose Point of Care 303 (65-105)
[2020-01-17] MEDS: MIDAZOLAM HCL 50 MG in DEXTROSE 5% 90 ML IV CONT (22:13)
[2020-01-17] MEDS: PROPOFOL IV EMULSION 100 ML 27.1 MG IV CONT (22:44)
[2020-01-18] VITALS (19 sets, daily range): BP systolic 120–155; BP diastolic 55–71; PULSE 63–86; RESP 18; TEMP 36.8–37.4; O2SAT 92–94
[2020-01-18 00:40] LABS: Glucose Point of Care 330 (65-105)
[2020-01-18] MEDS: INSULIN ASPART (*BKC) 100 UNITS/ML SUB-Q ×6 (00:43→20:00)
[2020-01-18] MEDS: PROPOFOL IV EMULSION 100 ML 27.1 MG IV CONT ×4 (02:42→12:48)
[2020-01-18 04:32] LABS: Alveolar/Arterial O2 Gradient 136.4 mmHg; Base Excess ABG 4.3 mEq/l (+/-2.0); Fractional Inspired Oxygen 35 %; HCO3 ABG 28.7 mEq/l (22.0-26.0); Oxygen Content ABG 18.2 %vol (16.0-22.0); Oxygen Saturation ABG 93.4 % (95.0-100.0); Oxyhemoglobin 91.8 % THb (90.0-100.0); PO2 ABG 64.3 mmHg (80.0-100.0); PO2 FiO2 Ratio Arterial Blood 1.84 %; Total Hemoglobin 14.1 g/dL (12.0-18.0); pH ABG 7.453 (7.350-7.450)
[2020-01-18 04:37] LABS: Device VENTILATOR; Modified Allen's Test Unable to perform; Site Drawn RIGHT RADIAL
[2020-01-18 04:38] LABS: Arterial Blood Gas PEEP 8 cmH2O; Arterial Blood Gas Tidal Volume 450 ml; Arterial Blood Gas Vent Mode CMV; Arterial Blood Gas Ventilator rate 18 /MIN
[2020-01-18 05:13] LABS: Glucose Point of Care 285 (65-105)
[2020-01-18 05:13] LABS: Hematocrit 40.1 % (42.0-52.0); Hemoglobin 13.3 g/dL (14.0-18.0); Mean Corpuscular HGB Conc 33.2 g/dl (32-36); Mean Corpuscular Hemoglobin 30.2 pg (26-34); Mean Corpuscular Volume 90.9 fl (80-100); Mean Platelet Volume 10.9 fl (7.4-10.4); Platelet Count Result 450 k/mm3 (150-375); Red Blood Count 4.41 M/mm3 (4.6-6.20); Red Cell Distribution Width 15.9 % (11.5-14.5)
[2020-01-18 05:26] LABS: Alanine Aminotransferase 24 U/L (4-50); Alkaline Phosphatase 69 U/L (38-126); Aspartate Amino Transferase 47 U/L (17-59); Bilirubin,Total 0.3 mg/dL (0.2-1.3); Blood Urea Nitrogen 34 mg/dL (9-20); Calcium 8.8 mg/dL (8.4-10.2); Carbon Dioxide 31 mmol/L (22-30); Chloride 102 mmol/L (98-107); Estimated CRCL calculation 74 ml/min; Estimated Glomerular Filt Rate > 60; Glucose 315 mg/dL (75-110); Lactic Acid 2.1 mmol/L (0.7-2.1); Magnesium 1.8 mg/dL (1.6-2.3); Phosphorus 2.3 mg/dL (2.5-4.5); Potassium 4.4 mmol/L (3.4-5.0); Sodium 137 mmol/L (137-145)
[2020-01-18] MEDS: methylPREDNISolone SOD SUCC 40 MG VIAL IV PUSH ×2 (05:26→17:51)
--- NOTE | 2020-01-18 07:15 | WPDINTPN ---
Progress Note: A&P Assessment and Plan (1) Acute respiratory failure: Qualifiers: Respiratory failure complication: hypoxia and hypercapnia Qualified Code(s): J96.01 - Acute respiratory failure with hypoxia; J96.02 - Acute respiratory failure with hypercapnia Code(s): J96.00 - Acute respiratory failure, unspecified whether with hypoxia or hypercapnia Status: Acute Assessment and Plan: patient initially presented with cough, fevers, altered mental status. Chest x-ray showed pulmonary edema/pneumonia. Lymphopenia, elevated CRP, normal LDH, leukocytosis - initial ABGs showed hypercapnic and hypoxic respiratory failure, patient was intubated on 01/15/2020 and placed on full mechanical ventilation. - COVID-19 PCR Negative. Discontinued isolation on 01/16 - Acute respiratory failure is multifactorial secondary to COPD, CHF and community-acquired pneumonia - Chest x-ray and repeat ABGs reviewed - withdraw endotracheal tube by 2 cm - I decreased the PEEP to 5 today. Immediately with limited suction patient desaturated into 80s. Peep was increased back to 8 - I will continue Lasix for diuresis. - continue fentanyl, Versed and propofol for sedation maintain RASS of -2 for adequate ventilator synchrony - continue ceftriaxone and azithromycin. cultures are negative at this point - continue but decreased steroids to twice a day (2) Septic shock: Code(s): A41.9 - Sepsis, unspecified organism; R65.21 - Severe sepsis with septic shock Status: Acute Assessment and Plan: Patient presented with hypotension, tachycardia, leukocytosis, elevated lactic acid, acute kidney injury - patient was given IV fluids cautiously in the ED. - will keep patient on the dry side - central line inserted on 01/15/2020, Currently off Levophed - preliminary blood culture negative x2 - patient on prednisone at home, will place patient on Solu-Medrol. I have decreased the dose to twice a day. will continue to wean - patient also on midodrine 5 mg BID AT HOME (3) Altered mental status: Qualifiers: Altered mental status type: unspecified Qualified Code(s): R41.82 - Altered mental status, unspecified Code(s): R41.82 - Altered mental status, unspecified Status: Acute Assessment and Plan: altered mental status likely related to hypercapnic respiratory failure with pH of 7.16 - patient also has a history of opioid use and cannabis and his U tox when he was at [facility] in November 2019. 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 - Sedation holiday today. (4) Pneumonia: Qualifiers: Laterality: unspecified laterality Lung location: unspecified part of lung Pneumonia type: due to unspecified organism Qualified Code(s): J18.9 - Pneumonia, unspecified organism Code(s): J18.9 - Pneumonia, unspecified organism Status: Acute Assessment and Plan: chest x-ray shows pulmonary edema versus pneumonia, - patient on ceftriaxone and azithromycin (5) Acute kidney injury: Code(s): N17.9 - Acute kidney failure, unspecified Status: Acute Assessment and Plan: patient presented with acute kidney injury, no known history of of kidney disease ( last known creatinine was 0.8 on 12/04/2019) - creatinine 1 this morning. , lactic acid has normalized - HYPERKALEMIA: resolved - continue to monitor urine output, renal function electrolytes - replace low phosphate level (6) Elevated troponin: Code(s): R79.89 - Other specified abnormal findings of blood chemistry Status: Acute Assessment and Plan: elevated troponin, 0.538. This could be related to type 2 infarction, EKG showed borderline ST T wave abnormality in the inferior lateral leads with sinus tachycardia (7) DVT prophylaxis: Code(s): Z29.9 - Encounter for prophylactic measures, unspecified
[2020-01-18] MEDS: FUROSEMIDE INJ 40 MG/4 ML VIAL IV PUSH (07:59)
[2020-01-18] MEDS: POTASSIUM/PHOSPHORUS/SODIUM 1.5 GM PACKET 2 PACKET PO (07:59)
[2020-01-18 08:15] LABS: Glucose Point of Care 297 (65-105)
[2020-01-18] MEDS: PANTOPRAZOLE SODIUM IV 40 MG VIAL IV PUSH (08:17)
[2020-01-18] MEDS: HEPARIN SODIUM 5,000 UNITS/ML VIAL 5000 UNITS SUB-Q ×2 (08:17→20:00)
[2020-01-18] MEDS: INSULIN GLARGINE (*BKC) 100 UNITS/ML 30 UNITS SUB-Q (08:19)
--- NOTE | 2020-01-18 11:14 | PCDIET ---
ICU Rounding Note: Pt current nutrition is Glucerna 1.2 at 60 mL/hour. Nutrition recommendation: Decrease to 50 mL/hour Last recorded weight is 104.5 kg. Bowel Motility: Labs Reviewed:Glu 315, Phos 2.3 Meds Noted:Kphos, lantus, novolog, solumedrol, protonix Additional Notes: Pt Propofol increased to 27.1 ml/hour, TF decreased to 50 mL/hour to prevent overfeeding. TF and propofol to provide 2035 kcals /day to meet 100% of energy needs and 88% of protein needs. Following daily in ICU rounds. Assessing/reassessing [g DIETFREQ].
[2020-01-18 12:51] LABS: Glucose Point of Care 358 (65-105)
--- NOTE | 2020-01-18 15:02 | PM.IMPN ---
Progress Note: A&P Assessment and Plan (1) Acute respiratory failure: Qualifiers: Respiratory failure complication: hypoxia and hypercapnia Qualified Code(s): J96.01 - Acute respiratory failure with hypoxia; J96.02 - Acute respiratory failure with hypercapnia Code(s): J96.00 - Acute respiratory failure, unspecified whether with hypoxia or hypercapnia Status: Acute Assessment and Plan: 01/18/20 15:02 The patient is sedated and intubated. Sedation and ventilator settings per Dr. Beltre.covid 19 swab was obtained and sent to the state lab for results. He was placed in isolation. Fentanyl Versed were started. patient was started on ceftriaxone in a Zithromax and azithromycin. Patient is hypercapnic. Patient is supported with vasopressors. 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 to emergency depart patient was hypoglycemic with blood sugar of 42 and response patient was treated and his blood sugar did improve however he remained unresponsive he was brought to the emergency department for further evaluation no detail was available as patient was not able to provide any history, ABG showed patient patient was hypoxic hypercapnic respiratory failure and unresponsive patient was intubated in the ER was also found have hypotension and central line was placed, patient was transferred to ICU concerned the patient may be positive for Covid 19, however patient is Covid 19 is negative, currently patient on vent unable to provide any review of symptoms, repeat chest x-ray shows worsing pneumonia, PEEP was reduced to 5 from 8 and patient desated so he was placed on PEEP of 8, unable to extubate, Will CPM patient is seen by cabin agent. (2) Pneumonia: Qualifiers: Laterality: unspecified laterality Lung location: unspecified part of lung Pneumonia type: due to unspecified organism Qualified Code(s): J18.9 - Pneumonia, unspecified organism Code(s): J18.9 - Pneumonia, unspecified organism Status: Acute Assessment and Plan: Patient is on a is a mycin Rocephin. Cultures are pending. Repeat lactic. Patient is septic. His tachycardia but he has a history of having tachycardia. And he is hypotensive. Patient is given 1 L of fluids in the emergency room additional 500 mL bolus in the ICU. Patient is to be kept on the dry side since he is being a rule out for covid 19. which is negative (3) Acute kidney injury: Code(s): N17.9 - Acute kidney failure, unspecified Status: Acute Assessment and Plan: Potassium was 6.6. He was given a concoction in the emergency room. Repeat BMP. Creatinine 2.2 now. Gently hydrate the patient if needed. Likely secondary to dehydration as patient kidney function is improved with IV fluid and his creatinine today is 1.0 (4) Diabetes mellitus with hyperglycemia: Qualifiers: Diabetes mellitus half-way insulin use: with half-way use Diabetes mellitus type: type 2 Qualified Code(s): E11.65 - Type 2 diabetes mellitus with hyperglycemia; Z79.4 - [facility] (current) use of insulin Code(s): E11.65 - Type 2 diabetes mellitus with hyperglycemia Status: Acute Assessment and Plan: Accu-Cheks AC and HS. Sliding scale insulin. (5) Congestive heart failure: Code(s): I50.9 - Heart failure, unspecified Status: Chronic Assessment and Plan: Grade 2 diastolic. (6) Obstructive sleep apnea: Code(s): G47.33 - Obstructive sleep apnea (adult) (pediatric) Status: Chronic Assessment and Plan: Patient is not compliant with the CPAP machine (7) HTN (hypertension) with goal to be determined: Code(s): I10 - Essential (primary) hypertension Status: Chronic Assessment and Plan: Patient is hypotensive and is on vasopressors. His home medications are on hold at this time. And seen by cabin agent (8) Depression: Code(s): F32.9 - Major depressive dis
[2020-01-18] MEDS: PROPOFOL IV EMULSION 100 ML 24.1 MG IV CONT (15:51)
[2020-01-18 17:46] LABS: Glucose Point of Care 294 (65-105)
[2020-01-18 19:48] LABS: Glucose Point of Care 299 (65-105)
[2020-01-18] MEDS: PROPOFOL IV EMULSION 100 ML 21.1 MG IV CONT (19:55)
[2020-01-19] VITALS (22 sets, daily range): BP systolic 90–165; BP diastolic 47–79; PULSE 57–104; RESP 17–18; TEMP 36.4–37.1; O2SAT 88–98
[2020-01-19] MEDS: MIDAZOLAM HCL 50 MG in DEXTROSE 5% 90 ML IV CONT ×2 (00:33→19:57)
[2020-01-19] MEDS: PROPOFOL IV EMULSION 100 ML 21.1 MG IV CONT ×5 (00:37→23:50)
[2020-01-19] MEDS: INSULIN ASPART (*BKC) 100 UNITS/ML SUB-Q ×6 (00:43→20:01)
[2020-01-19 00:49] LABS: Glucose Point of Care 320 (65-105)
[2020-01-19 04:01] LABS: Alveolar/Arterial O2 Gradient 135.8 mmHg; Base Excess ABG 5.9 mEq/l (+/-2.0); Device VENTILATOR; Fractional Inspired Oxygen 35 %; HCO3 ABG 29.8 mEq/l (22.0-26.0); Modified Allen's Test Pass; Oxygen Content ABG 19.9 %vol (16.0-22.0); Oxygen Saturation ABG 94.5 % (95.0-100.0); Oxyhemoglobin 92.4 % THb (90.0-100.0); PCO2 ABG 40.5 mmHg (35.0-45.0); PO2 ABG 66.7 mmHg (80.0-100.0); PO2 FiO2 Ratio Arterial Blood 1.91 %; Site Drawn LEFT RADIAL; Total Hemoglobin 15.3 g/dL (12.0-18.0); pH ABG 7.485 (7.350-7.450)
[2020-01-19 04:02] LABS: Arterial Blood Gas PEEP 8 cmH2O; Arterial Blood Gas Tidal Volume 450 ml; Arterial Blood Gas Vent Mode CMV; Arterial Blood Gas Ventilator rate 18 /MIN
[2020-01-19 04:26] LABS: Hematocrit 41.9 % (42.0-52.0); Hemoglobin 13.9 g/dL (14.0-18.0); Mean Corpuscular HGB Conc 33.2 g/dl (32-36); Mean Corpuscular Volume 90.3 fl (80-100); Mean Platelet Volume 11.1 fl (7.4-10.4); Platelet Count Result 436 k/mm3 (150-375); Red Blood Count 4.64 M/mm3 (4.6-6.20); Red Cell Distribution Width 15.5 % (11.5-14.5); White Blood Count 21.3 K/mm3 (4.5-10.0)
[2020-01-19] MEDS: PROPOFOL IV EMULSION 100 ML 18.1 MG IV CONT (04:38)
[2020-01-19 04:42] LABS: Alanine Aminotransferase 23 U/L (4-50); Alkaline Phosphatase 64 U/L (38-126); Aspartate Amino Transferase 31 U/L (17-59); Bilirubin,Total 0.4 mg/dL (0.2-1.3); Blood Urea Nitrogen 35 mg/dL (9-20); Calcium 9.4 mg/dL (8.4-10.2); Carbon Dioxide 34 mmol/L (22-30); Chloride 101 mmol/L (98-107); Estimated CRCL calculation 81 ml/min; Estimated Glomerular Filt Rate > 60; Glucose 315 mg/dL (75-110); Magnesium 1.6 mg/dL (1.6-2.3); Phosphorus 3.2 mg/dL (2.5-4.5); Potassium 4.3 mmol/L (3.4-5.0); Sodium 135 mmol/L (137-145)
[2020-01-19 04:46] LABS: Glucose Point of Care 288 (65-105)
[2020-01-19] MEDS: methylPREDNISolone SOD SUCC 40 MG VIAL IV PUSH (06:40)
--- NOTE | 2020-01-19 07:17 | WPDCDIQUERY2 ---
CDI Query Clarification Request -Sepsis and Septic shock and Patient presented with hypotension, tachycardia, leukocytosis, elevated lactic acid, acute kidney injury has been documented by Dr West and Dr Beltre -No mention of sepsis/septic shock by hospitalists Please clarify if sepsis/septic shock have been ruled in or ruled out. <Adela Agee RN - Last Filed: 01/19/20 07:19>
[2020-01-19 07:41] LABS: Glucose Point of Care 244 (65-105)
[2020-01-19] MEDS: PANTOPRAZOLE SODIUM IV 40 MG VIAL IV PUSH (08:03)
[2020-01-19] MEDS: HEPARIN SODIUM 5,000 UNITS/ML VIAL 5000 UNITS SUB-Q ×2 (08:03→19:52)
[2020-01-19] MEDS: INSULIN GLARGINE (*BKC) 100 UNITS/ML 50 UNITS SUB-Q (08:04)
[2020-01-19] MEDS: MAGNESIUM SULF 2 GM/WATER 50ML 2 GM/50 ML BAG IVPB (08:29)
--- NOTE | 2020-01-19 08:44 | WPDINTPN ---
Progress Note: A&P Assessment and Plan (1) Acute respiratory failure: Qualifiers: Respiratory failure complication: hypoxia and hypercapnia Qualified Code(s): J96.01 - Acute respiratory failure with hypoxia; J96.02 - Acute respiratory failure with hypercapnia Code(s): J96.00 - Acute respiratory failure, unspecified whether with hypoxia or hypercapnia Status: Acute Assessment and Plan: patient initially presented with cough, fevers, altered mental status. Chest x-ray showed pulmonary edema/pneumonia. Lymphopenia, elevated CRP, normal LDH, leukocytosis. Requiring intubation on 01/15/2020 - COVID-19 PCR Negative. isolation was discontinued on 01/17/2020 - Acute respiratory failure is multifactorial secondary to COPD, CHF and community-acquired pneumonia - Chest x-ray and repeat ABGs reviewed - patient desaturated on peep of 5, therefore peep was increased back to 8 - patient responding well to diuresis, WILL HOLD DIURESIS TODAY, CO2 increasing and so is the BUN - continue fentanyl, Versed and propofol for sedation maintain RASS of -2 for adequate ventilator synchrony - continue ceftriaxone and azithromycin. cultures are negative at this point - decrease steroids to daily (2) Septic shock: Code(s): A41.9 - Sepsis, unspecified organism; R65.21 - Severe sepsis with septic shock Status: Acute Assessment and Plan: Patient presented with hypotension, tachycardia, leukocytosis, elevated lactic acid, acute kidney injury, requiring Levophed briefly. - preliminary blood culture negative x2 - patient on prednisone at home, will place patient on Solu-Medrol. I have decreased the dose to twice a day. will continue to wean - patient also on midodrine 5 mg BID AT HOME - leukocytosis Improving (3) Altered mental status: Qualifiers: Altered mental status type: unspecified Qualified Code(s): R41.82 - Altered mental status, unspecified Code(s): R41.82 - Altered mental status, unspecified Status: Acute Assessment and Plan: altered mental status likely related to hypercapnic respiratory failure with pH of 7.16 - patient also has a history of opioid use and cannabis and his U tox when he was at [facility] in November 2019. 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 - daily sedation vacation - patient is following commands (4) Pneumonia: Qualifiers: Laterality: unspecified laterality Lung location: unspecified part of lung Pneumonia type: due to unspecified organism Qualified Code(s): J18.9 - Pneumonia, unspecified organism Code(s): J18.9 - Pneumonia, unspecified organism Status: Acute Assessment and Plan: chest x-ray shows pulmonary edema versus pneumonia, - patient on ceftriaxone and azithromycin (5) Acute kidney injury: Code(s): N17.9 - Acute kidney failure, unspecified Status: Acute Assessment and Plan: patient presented with acute kidney injury, no known history of of kidney disease ( last known creatinine was 0.8 on 12/04/2019) - creatinine 1.0 this morning. , lactic acid has normalized - HYPERKALEMIA: resolved - continue to monitor urine output, renal function electrolytes - magnesium replaced (6) Elevated troponin: Code(s): R79.89 - Other specified abnormal findings of blood chemistry Status: Acute Assessment and Plan: elevated troponin, 0.538. This could be related to type 2 infarction, EKG showed borderline ST T wave abnormality in the inferior lateral leads with sinus tachycardia (7) DVT prophylaxis: Code(s): Z29.9 - Encounter for prophylactic measures, unspecified Status: Acute Assessment and Plan: DVT prophylaxis: Heparin SQ stress ulcer prophylaxis: Protonix (8) Diabetes mellitus with hyperglycemia: Qualifiers: Diabetes mellitus terminal carman in
--- NOTE | 2020-01-19 11:12 | PCDIET ---
Nutrition Follow-Up Complete: Nutrition Diagnosis: Inadequate oral intake related to oral intubation as evidenced by NPO status. Nutrition Goal: Patient to meet estimated nutritional needs. Goal met. Patient tolerating Glucerna 1.2 at 50mL/hr goal rate. Last recorded weight is 93.5 kg which is decreased. -I/O noted. Bowel Motility: No documented bowel movements. Labs Reviewed: Glu (244), BUN (35), Na (135), Alb (3.0) Meds Noted: Zithromax, Novolog, Solu Medrol, Rocephin, Lantus, Protonix, Fentanyl, Versed Additional Notes: Propofol infusing at 18.1mL/hr which provides 477kcal over 24 hour period. Recommended obtaining TG level. Would also consider medication to promote bowel movement, if medically appropriate. Nutrition Monitoring and Evaluation: Follow up every Wednesday/Wednesday. Follow daily in ICU rounds.
[2020-01-19 11:18] LABS: Triglycerides 454 mg/dL (<150)
[2020-01-19 12:32] LABS: Glucose Point of Care 376 (65-105)
--- NOTE | 2020-01-19 16:05 | PM.IMPN ---
Progress Note: A&P Assessment and Plan (1) Acute respiratory failure: Qualifiers: Respiratory failure complication: hypoxia and hypercapnia Qualified Code(s): J96.01 - Acute respiratory failure with hypoxia; J96.02 - Acute respiratory failure with hypercapnia Code(s): J96.00 - Acute respiratory failure, unspecified whether with hypoxia or hypercapnia Status: Acute Assessment and Plan: 01/19/20 16:05 The patient is sedated and intubated. Sedation and ventilator settings per Dr. Beltre.covid 19 swab was obtained and sent to the state lab for results. He was placed in isolation. Fentanyl Versed were started. patient was started on ceftriaxone in a Zithromax and azithromycin. Patient is hypercapnic. Patient is supported with vasopressors. 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 to emergency depart patient was hypoglycemic with blood sugar of 42 and response patient was treated and his blood sugar did improve however he remained unresponsive he was brought to the emergency department for further evaluation no detail was available as patient was not able to provide any history, ABG showed patient patient was hypoxic hypercapnic respiratory failure and unresponsive patient was intubated in the ER was also found have hypotension and central line was placed, patient was transferred to ICU concerned the patient may be positive for Covid 19, however patient is Covid 19 is negative, currently patient on vent unable to provide any review of symptoms, repeat chest x-ray on 01/17 showed worsing pneumonia, PEEP was reduced to 5 from 8 and patient desated so he was placed on PEEP of 8, today however chest x-ray does not show worsening pneumonia but unable to tolerate low PEEP and was continued at 8, discussed with automotive service advisor, unable to extubate, Will CPM patient is seen by automotive service advisor. (2) Pneumonia: Qualifiers: Laterality: unspecified laterality Lung location: unspecified part of lung Pneumonia type: due to unspecified organism Qualified Code(s): J18.9 - Pneumonia, unspecified organism Code(s): J18.9 - Pneumonia, unspecified organism Status: Acute Assessment and Plan: Patient is on a is a mycin Rocephin. Cultures are pending. Repeat lactic. Patient is septic. His tachycardia but he has a history of having tachycardia. And he is hypotensive. Patient is given 1 L of fluids in the emergency room additional 500 mL bolus in the ICU. Patient is to be kept on the dry side since he is being a rule out for covid 19. which is negative (3) Acute kidney injury: Code(s): N17.9 - Acute kidney failure, unspecified Status: Acute Assessment and Plan: Potassium was 6.6. He was given a concoction in the emergency room. Repeat BMP. Creatinine 2.2 now. Gently hydrate the patient if needed. Likely secondary to dehydration as patient kidney function is improved with IV fluid and his creatinine today is 1.0 (4) Diabetes mellitus with hyperglycemia: Qualifiers: Diabetes mellitus type: type 2 Diabetes mellitus intermediate card tender insulin use: with intermediate card tender use Qualified Code(s): E11.65 - Type 2 diabetes mellitus with hyperglycemia; Z79.4 - residential (current) use of insulin Code(s): E11.65 - Type 2 diabetes mellitus with hyperglycemia Status: Acute Assessment and Plan: Accu-Cheks AC and HS. Sliding scale insulin. (5) Congestive heart failure: Code(s): I50.9 - Heart failure, unspecified Status: Chronic Assessment and Plan: Grade 2 diastolic. (6) Obstructive sleep apnea: Code(s): G47.33 - Obstructive sleep apnea (adult) (pediatric) Status: Chronic Assessment and Plan: Patient is not compliant with the CPAP machine (7) HTN (hypertension) with goal to be determined: Code(s): I10 - Essential (primary) hypertension Status: Chronic Assessment and Plan: Patient is hypotensive and i
[2020-01-19 16:36] LABS: Glucose Point of Care 314 (65-105)
[2020-01-19 20:04] LABS: Glucose Point of Care 322 (65-105)
[2020-01-20] VITALS (20 sets, daily range): BP systolic 96–141; BP diastolic 44–90; PULSE 55–122; RESP 18–25; TEMP 36.1–37.6; O2SAT 91–99
[2020-01-20 01:07] LABS: Glucose Point of Care 261 (65-105)
[2020-01-20] MEDS: INSULIN ASPART (*BKC) 100 UNITS/ML SUB-Q ×6 (01:26→20:14)
[2020-01-20 04:01] LABS: Alveolar/Arterial O2 Gradient 232.8 mmHg; Base Excess ABG 3.7 mEq/l (+/-2.0); Carboxyhemoglobin 0.3 % THb (0-2.0); Fractional Inspired Oxygen 50 %; HCO3 ABG 28.2 mEq/l (22.0-26.0); Methemoglobin ABG 0.3 %THb (0-1.5); Oxygen Content ABG 19.5 %vol (16.0-22.0); Oxygen Saturation ABG 95.7 % (95.0-100.0); Oxyhemoglobin 93.7 % THb (90.0-100.0); PCO2 ABG 42.3 mmHg (35.0-45.0); PO2 ABG 76.1 mmHg (80.0-100.0); PO2 FiO2 Ratio Arterial Blood 1.52 %; Reduced Hemoglobin 5.7 %THb (0-5.0); Total Hemoglobin 14.8 g/dL (12.0-18.0); pH ABG 7.442 (7.350-7.450)
[2020-01-20 04:02] LABS: Arterial Blood Gas Ventilator rate 18 /MIN; Device VENTILATOR; Modified Allen's Test Pass; Site Drawn RIGHT RADIAL
[2020-01-20 04:03] LABS: Arterial Blood Gas PEEP 8 cmH2O; Arterial Blood Gas Pressure Support 0 cmH2O; Arterial Blood Gas Tidal Volume 450 ml; Arterial Blood Gas Vent Mode CMV
[2020-01-20] MEDS: PROPOFOL IV EMULSION 100 ML 18.1 MG IV CONT ×3 (04:36→15:09)
[2020-01-20 04:41] LABS: Basophils Absolute Auto 0.1 K/mm3 (0.0-0.1); Basophils Percent Auto 0.5 % (0.2-1.2); Eosinophils Absolute Auto 0.4 K/mm3 (0-0.3); Eosinophils Percent Auto 1.4 % (0-4.4); Hematocrit 42.7 % (42.0-52.0); Immature Granulocyte Absolute 0.95 K/mm3 (0.00-0.031); Immature Granulocyte Percent A 3.7 % (0-0.5); Lymphocytes Absolute Auto 5.39 K/mm3 (0.9-3.2); Lymphocytes Percent Auto 20.8 % (18.3-44.2); Mean Corpuscular HGB Conc 32.8 g/dl (32-36); Mean Corpuscular Hemoglobin 29.8 pg (26-34); Mean Corpuscular Volume 90.9 fl (80-100); Mean Platelet Volume 10.7 fl (7.4-10.4); Monocytes Absolute Auto 2.2 K/mm3 (0.1-0.6); Monocytes Percent Auto 8.5 % (2.6-8.5); Neutrophils Absolute Auto 16.9 K/mm3 (1.3-6.7); Neutrophils Percent Auto 65.1 % (45.5-73.1); Nucleated Red Blood Cells Absolute Auto 0.1 K/mm3 (0.0-0.012); Nucleated Red Blood Cells Perc 0.2 % (0.0-0.2); Platelet Count Result 411 k/mm3 (150-375); Red Cell Distribution Width 15.3 % (11.5-14.5); White Blood Count 25.9 K/mm3 (4.5-10.0)
[2020-01-20 04:45] LABS: Glucose Point of Care 210 (65-105)
[2020-01-20 05:13] LABS: Alanine Aminotransferase 20 U/L (4-50); Alkaline Phosphatase 68 U/L (38-126); Aspartate Amino Transferase 21 U/L (17-59); Bilirubin,Total 0.4 mg/dL (0.2-1.3); Blood Urea Nitrogen 34 mg/dL (9-20); Calcium 9.1 mg/dL (8.4-10.2); Carbon Dioxide 33 mmol/L (22-30); Chloride 101 mmol/L (98-107); Estimated CRCL calculation 80 ml/min; Estimated Glomerular Filt Rate > 60; Glucose 225 mg/dL (75-110); Magnesium 1.6 mg/dL (1.6-2.3); Phosphorus 2.9 mg/dL (2.5-4.5); Sodium 136 mmol/L (137-145)
[2020-01-20 05:18] LABS: CRP 1.9 mg/dL (<1.0)
[2020-01-20 08:26] LABS: Anisocytosis 1+ (NORMAL); Platelet Estimate Adequate (Adequate)
[2020-01-20 08:27] LABS: Burr Cells 2+ (NORMAL); Spherocytes 2+ (NORMAL)
[2020-01-20 08:41] LABS: Glucose Point of Care 227 (65-105)
[2020-01-20] MEDS: BUMETANIDE INJ 1 MG/4 ML VIAL IV PUSH (08:44)
[2020-01-20] MEDS: INSULIN GLARGINE (*BKC) 100 UNITS/ML 35 UNITS SUB-Q ×2 (08:45→20:10)
[2020-01-20] MEDS: PANTOPRAZOLE SODIUM IV 40 MG VIAL IV PUSH (08:46)
[2020-01-20] MEDS: HEPARIN SODIUM 5,000 UNITS/ML VIAL 5000 UNITS SUB-Q ×2 (08:46→20:10)
[2020-01-20] MEDS: methylPREDNISolone SOD SUCC 40 MG VIAL IV PUSH (08:46)
--- NOTE | 2020-01-20 12:26 | WPDINTPN ---
Progress Note: A&P Assessment and Plan (1) Acute respiratory failure: Qualifiers: Respiratory failure complication: hypoxia and hypercapnia Qualified Code(s): J96.01 - Acute respiratory failure with hypoxia; J96.02 - Acute respiratory failure with hypercapnia Code(s): J96.00 - Acute respiratory failure, unspecified whether with hypoxia or hypercapnia Status: Acute Assessment and Plan: patient initially presented with cough, fevers, altered mental status. Chest x-ray showed pulmonary edema/pneumonia. Lymphopenia, elevated CRP, normal LDH, leukocytosis. Requiring intubation on 01/15/2020 - COVID-19 PCR Negative. isolation was discontinued on 01/17/2020 - Acute respiratory failure is multifactorial secondary to COPD, CHF and community-acquired pneumonia - Chest x-ray and repeat ABGs reviewed - patient desaturated on peep of 5, therefore peep was increased back to 8 - patient responding well to diuresis, Will diurese today - continue fentanyl, Versed and propofol for sedation maintain RASS of -2 for adequate ventilator synchrony - continue ceftriaxone and azithromycin. cultures are negative at this point (2) Septic shock: Code(s): A41.9 - Sepsis, unspecified organism; R65.21 - Severe sepsis with septic shock Status: Acute Assessment and Plan: RESOLVED: Patient presented with hypotension, tachycardia, leukocytosis, elevated lactic acid, acute kidney injury, requiring Levophed briefly. - preliminary blood culture negative x2 - patient on prednisone at home,placed on Solu-Medrol here as inpatient. Now on daily solu-medrol - patient also on midodrine 5 mg BID AT HOME - leukocytosis Improving (3) Altered mental status: Qualifiers: Altered mental status type: unspecified Qualified Code(s): R41.82 - Altered mental status, unspecified Code(s): R41.82 - Altered mental status, unspecified Status: Acute Assessment and Plan: altered mental status likely related to hypercapnic respiratory failure with pH of 7.16 - patient also has a history of opioid use and cannabis and his U tox when he was at [facility] in November 2019. 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 - daily sedation vacation - patient is following commands (4) Pneumonia: Qualifiers: Laterality: unspecified laterality Lung location: unspecified part of lung Pneumonia type: due to unspecified organism Qualified Code(s): J18.9 - Pneumonia, unspecified organism Code(s): J18.9 - Pneumonia, unspecified organism Status: Acute Assessment and Plan: chest x-ray shows pulmonary edema versus pneumonia, - patient on ceftriaxone and azithromycin Will diurese today (5) Acute kidney injury: Code(s): N17.9 - Acute kidney failure, unspecified Status: Acute Assessment and Plan: patient presented with acute kidney injury, no known history of of kidney disease ( last known creatinine was 0.8 on 12/04/2019) - creatinine 1.0 this morning. , lactic acid has normalized - HYPERKALEMIA: resolved - continue to monitor urine output, renal function electrolytes - magnesium replaced (6) Elevated troponin: Code(s): R79.89 - Other specified abnormal findings of blood chemistry Status: Acute Assessment and Plan: elevated troponin, 0.538. This could be related to type 2 infarction, EKG showed borderline ST T wave abnormality in the inferior lateral leads with sinus tachycardia (7) DVT prophylaxis: Code(s): Z29.9 - Encounter for prophylactic measures, unspecified Status: Acute Assessment and Plan: DVT prophylaxis: Heparin SQ stress ulcer prophylaxis: Protonix (8) Diabetes mellitus with hyperglycemia: Qualifiers: Diabetes mellitus type: type 2 Diabetes mellitus ferry terminal supervisor insulin use: with ferry terminal supervisor use Qualified Code(
[2020-01-20 12:45] LABS: Glucose Point of Care 249 (65-105)
[2020-01-20] MEDS: polyethylene glycoL 3350 17 GM POWD.PACK PO (14:13)
--- NOTE | 2020-01-20 16:27 | PM.IMPN ---
Progress Note: A&P Assessment and Plan (1) Acute respiratory failure: Qualifiers: Respiratory failure complication: hypoxia and hypercapnia Qualified Code(s): J96.01 - Acute respiratory failure with hypoxia; J96.02 - Acute respiratory failure with hypercapnia Code(s): J96.00 - Acute respiratory failure, unspecified whether with hypoxia or hypercapnia Status: Acute Assessment and Plan: 01/20/20 16:27 The patient is sedated and intubated. Sedation and ventilator settings per Dr. Beltre.covid 19 swab was obtained and sent to the state lab for results. He was placed in isolation. Fentanyl Versed were started. patient was started on ceftriaxone in a Zithromax and azithromycin. Patient is hypercapnic. Patient is supported with vasopressors. 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 to emergency depart patient was hypoglycemic with blood sugar of 42 and response patient was treated and his blood sugar did improve however he remained unresponsive he was brought to the emergency department for further evaluation no detail was available as patient was not able to provide any history, ABG showed patient patient was hypoxic hypercapnic respiratory failure and unresponsive patient was intubated in the ER was also found have hypotension and central line was placed, patient was transferred to ICU concerned the patient may be positive for Covid 19, however patient is Covid 19 is negative, currently patient on vent unable to provide any review of symptoms, repeat chest x-ray on 01/17 showed worsing pneumonia, PEEP was reduced to 5 from 8 and patient desated so he was placed on PEEP of 8, however chest x-ray today does not show any improvement in pneumonia but unable to tolerate low PEEP and was continued at 8, unable to extubate, Will CPM patient is seen by metal control worker. (2) Pneumonia: Qualifiers: Laterality: unspecified laterality Lung location: unspecified part of lung Pneumonia type: due to unspecified organism Qualified Code(s): J18.9 - Pneumonia, unspecified organism Code(s): J18.9 - Pneumonia, unspecified organism Status: Acute Assessment and Plan: Patient is on a is a mycin Rocephin. Cultures are pending. Repeat lactic. Patient is septic. His tachycardia but he has a history of having tachycardia. And he is hypotensive. Patient is given 1 L of fluids in the emergency room additional 500 mL bolus in the ICU. Patient is to be kept on the dry side since he is being a rule out for covid 19. which is negative (3) Acute kidney injury: Code(s): N17.9 - Acute kidney failure, unspecified Status: Acute Assessment and Plan: Potassium was 6.6. He was given a concoction in the emergency room. Repeat BMP. Creatinine 2.2 now. Gently hydrate the patient if needed. Likely secondary to dehydration as patient kidney function is improved with IV fluid and his creatinine today is 1.0 (4) Diabetes mellitus with hyperglycemia: Qualifiers: Diabetes mellitus type: type 2 Diabetes mellitus correction insulin use: with correction use Qualified Code(s): E11.65 - Type 2 diabetes mellitus with hyperglycemia; Z79.4 - superintendent container terminal (current) use of insulin Code(s): E11.65 - Type 2 diabetes mellitus with hyperglycemia Status: Acute Assessment and Plan: Accu-Cheks AC and HS. Sliding scale insulin. (5) Congestive heart failure: Code(s): I50.9 - Heart failure, unspecified Status: Chronic Assessment and Plan: Grade 2 diastolic. (6) Obstructive sleep apnea: Code(s): G47.33 - Obstructive sleep apnea (adult) (pediatric) Status: Chronic Assessment and Plan: Patient is not compliant with the CPAP machine (7) HTN (hypertension) with goal to be determined: Code(s): I10 - Essential (primary) hypertension Status: Chronic Assessment and Plan: Patient is hypotensive and is on vasopressors.
[2020-01-20 16:53] LABS: Glucose Point of Care 310 (65-105)
[2020-01-20] MEDS: PROPOFOL IV EMULSION 100 ML 21.1 MG IV CONT (20:07)
[2020-01-20 20:28] LABS: Glucose Point of Care 329 (65-105)
[2020-01-20] MEDS: MIDAZOLAM HCL 50 MG in DEXTROSE 5% 90 ML 6 MG IV CONT (22:04)
[2020-01-21] VITALS (26 sets, daily range): BP systolic 101–167; BP diastolic 45–84; PULSE 56–117; RESP 18–99; TEMP 36.6–37.2; O2SAT 18–98
[2020-01-21] LABS: Glucose Point of Care 239 (65-105)
[2020-01-21] MEDS: INSULIN ASPART (*BKC) 100 UNITS/ML SUB-Q ×5 (00:55→21:42)
[2020-01-21] MEDS: PROPOFOL IV EMULSION 100 ML 21.1 MG IV CONT ×2 (00:58→05:43)
[2020-01-21 03:58] LABS: Glucose Point of Care 200 (65-105)
[2020-01-21 04:31] LABS: Alveolar/Arterial O2 Gradient 391.1 mmHg; Base Excess ABG 2.7 mEq/l (+/-2.0); Fractional Inspired Oxygen 70 %; HCO3 ABG 26.9 mEq/l (22.0-26.0); Oxygen Content ABG 18.9 %vol (16.0-22.0); Oxygen Saturation ABG 93.6 % (95.0-100.0); Oxyhemoglobin 91.3 % THb (90.0-100.0); PCO2 ABG 39.8 mmHg (35.0-45.0); PO2 ABG 65.2 mmHg (80.0-100.0); PO2 FiO2 Ratio Arterial Blood 0.93 %; Total Hemoglobin 14.7 g/dL (12.0-18.0); pH ABG 7.447 (7.350-7.450)
[2020-01-21 04:32] LABS: Device VENTILATOR; Modified Allen's Test Pass; Site Drawn RIGHT RADIAL
[2020-01-21 04:33] LABS: Arterial Blood Gas PEEP 8 cmH2O; Arterial Blood Gas Pressure Support 0 cmH2O; Arterial Blood Gas Tidal Volume 450 ml; Arterial Blood Gas Vent Mode CMV; Arterial Blood Gas Ventilator rate 18 /MIN
[2020-01-21 05:46] LABS: Basophils Absolute Auto 0.1 K/mm3 (0.0-0.1); Basophils Percent Auto 0.4 % (0.2-1.2); Eosinophils Absolute Auto 0.7 K/mm3 (0-0.3); Eosinophils Percent Auto 2.1 % (0-4.4); Hematocrit 42.1 % (42.0-52.0); Immature Granulocyte Absolute 1.17 K/mm3 (0.00-0.031); Immature Granulocyte Percent A 3.5 % (0-0.5); Lymphocytes Absolute Auto 6.19 K/mm3 (0.9-3.2); Lymphocytes Percent Auto 18.8 % (18.3-44.2); Mean Corpuscular HGB Conc 33.3 g/dl (32-36); Mean Corpuscular Volume 90.3 fl (80-100); Mean Platelet Volume 11.1 fl (7.4-10.4); Neutrophils Absolute Auto 22.9 K/mm3 (1.3-6.7); Neutrophils Percent Auto 69.2 % (45.5-73.1); Nucleated Red Blood Cells Perc 0.1 % (0.0-0.2); Platelet Count Result 383 k/mm3 (150-375); Red Blood Count 4.66 M/mm3 (4.6-6.20); Red Cell Distribution Width 15.2 % (11.5-14.5)
[2020-01-21 06:03] LABS: Lactic Acid 1.1 mmol/L (0.7-2.1); Triglycerides 462 mg/dL (<150)
[2020-01-21 06:20] LABS: Alanine Aminotransferase 22 U/L (4-50); Albumin Level 2.9 g/dL (3.5-5.1); Alkaline Phosphatase 64 U/L (38-126); Aspartate Amino Transferase 30 U/L (17-59); Bilirubin,Total 0.5 mg/dL (0.2-1.3); Blood Urea Nitrogen 37 mg/dL (9-20); CRP 3.8 mg/dL (<1.0); Carbon Dioxide 32 mmol/L (22-30); Chloride 100 mmol/L (98-107); Estimated CRCL calculation 86 ml/min; Estimated Glomerular Filt Rate > 60; Glucose 196 mg/dL (75-110); Lipase 254 U/L (23-300); Magnesium 1.4 mg/dL (1.6-2.3); Phosphorus 3.4 mg/dL (2.5-4.5); Potassium 4.1 mmol/L (3.4-5.0); Sodium 134 mmol/L (137-145)
[2020-01-21] MEDS: DORNASE ALFA INH SOLN 1 MG/ML 2.5 ML AMP 2.5 MG INHALATION ×2 (08:27→20:20)
[2020-01-21] MEDS: MAGNESIUM SULF 4 GM/WATER100ML 4 GM/100 ML BAG IVPB (09:01)
[2020-01-21 09:05] LABS: Glucose Point of Care 215 (65-105)
[2020-01-21] MEDS: INSULIN GLARGINE (*BKC) 100 UNITS/ML 40 UNITS SUB-Q ×2 (09:05→21:44)
[2020-01-21] MEDS: HEPARIN SODIUM 5,000 UNITS/ML VIAL 5000 UNITS SUB-Q ×2 (09:07→21:37)
[2020-01-21] MEDS: polyethylene glycoL 3350 17 GM POWD.PACK PO (09:10)
[2020-01-21] MEDS: methylPREDNISolone SOD SUCC 40 MG VIAL IV PUSH (09:10)
[2020-01-21] MEDS: PANTOPRAZOLE SODIUM IV 40 MG VIAL IV PUSH (09:10)
[2020-01-21 09:17] LABS: NT Pro B Type Natriuretic Pept 870 PG/ML (5-100)
[2020-01-21 12:32] LABS: Glucose Point of Care 270 (65-105)
[2020-01-21] MEDS: PROPOFOL IV EMULSION 100 ML 15.1 MG IV CONT (12:32)
--- NOTE | 2020-01-21 13:02 | WPDINTPN ---
Progress Note: A&P Assessment and Plan (1) Acute respiratory failure: Qualifiers: Respiratory failure complication: hypoxia and hypercapnia Qualified Code(s): J96.01 - Acute respiratory failure with hypoxia; J96.02 - Acute respiratory failure with hypercapnia Code(s): J96.00 - Acute respiratory failure, unspecified whether with hypoxia or hypercapnia Status: Acute Assessment and Plan: patient initially presented with cough, fevers, altered mental status. Chest x-ray showed pulmonary edema/pneumonia. Lymphopenia, elevated CRP, normal LDH, leukocytosis. Requiring intubation on 01/15/2020 - COVID-19 PCR Negative. isolation was discontinued on 01/17/2020. Patient does not have lymphopenia, procalcitonin <0.10, normal LDH level, CRP 3.8 - Acute respiratory failure is multifactorial secondary to COPD, CHF and community-acquired pneumonia - Chest x-ray and repeat ABGs reviewed - elevated WBC count - patient responding well to diuresis, Will diurese again today - continue fentanyl, Versed and propofol for sedation maintain RASS of -2 for adequate ventilator synchrony - continue ceftriaxone and azithromycin. will add vancomycin - pulmonary consulted - patient had a mucus plug, started patient on Pulmozyme (2) Septic shock: Code(s): A41.9 - Sepsis, unspecified organism; R65.21 - Severe sepsis with septic shock Status: Acute Assessment and Plan: RESOLVED: Patient presented with hypotension, tachycardia, leukocytosis, elevated lactic acid, acute kidney injury, requiring Levophed briefly. - preliminary blood culture negative x2 - patient on prednisone at home,placed on Solu-Medrol here as inpatient. Now on daily solu-medrol - patient also on midodrine 5 mg BID AT HOME - leukocytosis worsening - obtain sputum cultures - continue antibiotics as above (3) Altered mental status: Qualifiers: Altered mental status type: unspecified Qualified Code(s): R41.82 - Altered mental status, unspecified Code(s): R41.82 - Altered mental status, unspecified Status: Acute Assessment and Plan: altered mental status likely related to hypercapnic respiratory failure with pH of 7.16 - patient also has a history of opioid use and cannabis and his U tox when he was at [facility] in November 2019. 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 - daily sedation vacation - patient is following commands (4) Pneumonia: Qualifiers: Laterality: unspecified laterality Lung location: unspecified part of lung Pneumonia type: due to unspecified organism Qualified Code(s): J18.9 - Pneumonia, unspecified organism Code(s): J18.9 - Pneumonia, unspecified organism Status: Acute Assessment and Plan: chest x-ray shows pulmonary edema versus pneumonia, - patient on ceftriaxone and azithromycin, add vancomycin - Pulmozyme added - pulmonary consulted (5) Acute kidney injury: Code(s): N17.9 - Acute kidney failure, unspecified Status: Acute Assessment and Plan: RESOLVED; patient presented with acute kidney injury, no known history of of kidney disease ( last known creatinine was 0.8 on 12/04/2019) - creatinine 0.9 this morning. , lactic acid has normalized - HYPERKALEMIA: resolved - continue to monitor urine output, renal function electrolytes - magnesium replaced (6) Elevated troponin: Code(s): R79.89 - Other specified abnormal findings of blood chemistry Status: Acute Assessment and Plan: elevated troponin, 0.538. This could be related to type 2 infarction, EKG showed borderline ST T wave abnormality in the inferior lateral leads with sinus tachycardia (7) DVT prophylaxis: Code(s): Z29.9 - Encounter for prophylactic measures, unspecified Status: Acute Assessment and Plan: DVT prophylaxis: Heparin S
--- NOTE | 2020-01-21 13:39 | PM.CNPUL ---
Assessment and Plan Assessment and plan (1) Nosocomial pneumonia: Code(s): J18.9 - Pneumonia, unspecified organism; Y95 - Nosocomial condition Status: Acute Assessment and Plan: - agree with broadening antibiotic coverage. Would recommend Meropenem and Vancomycin for 7 days and discontinuing Ceftriaxone. - sputum culture resent - agree with diurresis for pleural efffusions - decrease sedation as tolerated to PRN. - CPAP trial when FiO2 at 50% or less and PEEP at 8 cm H20 or less. - continue duo nebs as ordered. Thank you for involving me in the care of this patient. History of Present Illness History of Present Illness Consult date: 01/21/20 Chief complaint: AMS/hypercapnic respiratory failure/DM Narrative: 59 y/o male with history of CVA admitted with acute respiratory failure and pneumonia with interstitial pattern. He was hospitalized in Nov and December for UTI's, not sure which antibioticts he recieved though. He has been on Ceftriaxone and Azithromycin for many days without clinical improvement. His FiO2 demands have been increasing and CXR shows new bilateral pleural effusions when compared to admission CXR. SARS-CoV-2 test has come back negative. Review of Systems Review of Systems: All systems reviewed & are unremarkable except as noted in HPI and below PMFSH Past Medical History Medical History (Updated 01/21/20 @ 13:44 by Shannan Loving MD) Anemia Anxiety BPH (benign prostatic hyperplasia) Congestive heart failure Diastolic dysfunction Depression DM2 (diabetes mellitus, type 2) Enterobacter sepsis UTI History of CVA (cerebrovascular accident) HTN (hypertension) with goal to be determined Leg mass Right leg mass excised Migraines Myelofibrosis Neuropathy Obstructive sleep apnea Noncompliant with CPAP Surgical History Surgical History (Updated 01/15/20 @ 14:14 by Yissel James NP) H/O hernia repair H/O splenectomy Hx of cholecystectomy Family History Family History (Updated 01/15/20 @ 14:15 by Yissel James NP) Unknown Family history unknown Social History Social History (Updated 01/15/20 @ 14:15 by Yissel James NP) Social History: Patient is listed as a full code. Patient is a current sm[facility]. Smoking status: Light tobacco smoker Tobacco type: cigars Additional smoking assessment comments: One cigar per week Alcohol intake: current Drinks per week: 1 Substance use: unknown Occupation/Education: other Gender identity (if verbalized by the patient): Male Spiritual care concerns: No Agree to blood products: Yes Meds Home Medications and Allergies Home Medications Medication Instructions Recorded Confirmed Type diazepam 10 mg PO TID 01/15/20 01/15/20 History fenofibrate 160 mg PO DAILY 01/15/20 01/15/20 History metformin 1,000 mg PO BID 01/15/20 01/15/20 History midodrine 5 mg PO BID 01/15/20 01/15/20 History mirabegron [Myrbetriq] 50 mg PO DAILY 01/15/20 01/15/20 History pregabalin [Lyrica] 150 mg PO BID 01/15/20 01/15/20 History tamsulosin 0.4 mg PO DAILY 01/15/20 01/15/20 History venlafaxine 37.5 mg PO BID 01/15/20 01/15/20 History zolpidem 10 mg PO HS 01/15/20 01/15/20 History Allergies Allergy/AdvReac Type Severity Reaction Status Date / Time naproxen Allergy Intermediate SWELLING Verified 01/15/20 09:13 iohexol Allergy Unknown Verified 01/15/20 09:13 [From contrast - CT, X-RAY] Vital Signs Vital Signs - 24 hr 01/20/20 14:00 01/20/20 16:00 01/20/20 17:15 Temperature 37.5 C Pulse Rate 115 H 102 H 86 Respiratory Rate 20 18 Blood Pressure 129/66 123/64 Pulse Oximetry 95 93 94 01/20/20 18:00 01/20/20 20:00 01/20/20 20:35 Temperature 36.7 C Pulse Rate 80 82 80 Respiratory Rate 18 19 Blood Pressure 106/58 L 96/44 L Pulse Oximetry 94 91 93 01/20/20 21:42 01/20/20 21:43 01/20/20 23:40 Temperature Pulse Rate 62 62 60 Respiratory R
--- NOTE | 2020-01-21 15:38 | PM.IMPN ---
Progress Note: A&P Assessment and Plan (1) Acute respiratory failure: Qualifiers: Respiratory failure complication: hypoxia and hypercapnia Qualified Code(s): J96.01 - Acute respiratory failure with hypoxia; J96.02 - Acute respiratory failure with hypercapnia Code(s): J96.00 - Acute respiratory failure, unspecified whether with hypoxia or hypercapnia Status: Acute Assessment and Plan: 01/21/20 15:38 The patient is sedated and intubated. Sedation and ventilator settings per Dr. Beltre.covid 19 swab was obtained and sent to the state lab for results. He was placed in isolation. Fentanyl Versed were started. patient was started on ceftriaxone in a Zithromax and azithromycin. Patient is hypercapnic. Patient is supported with vasopressors. 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 to emergency depart patient was hypoglycemic with blood sugar of 42 and response patient was treated and his blood sugar did improve however he remained unresponsive he was brought to the emergency department for further evaluation no detail was available as patient was not able to provide any history, ABG showed patient patient was hypoxic hypercapnic respiratory failure and unresponsive patient was intubated in the ER was also found have hypotension and central line was placed, patient was transferred to ICU concerned the patient may be positive for Covid 19, however patient is Covid 19 is negative, currently patient on vent unable to provide any review of symptoms, repeat chest x-ray on 01/17 showed worsing pneumonia, PEEP was reduced to 5 from 8 and patient desated so he was placed on PEEP of 8, however chest x-ray today does not show any improvement in pneumonia but unable to tolerate low PEEP and was continued at 8, patient was seen by compressor house operator and switch the patient to meropenem and vancomycin for 7 days, unable to extubate, Will [facility] patient is seen by picture booker. (2) Pneumonia: Qualifiers: Laterality: unspecified laterality Lung location: unspecified part of lung Pneumonia type: due to unspecified organism Qualified Code(s): J18.9 - Pneumonia, unspecified organism Code(s): J18.9 - Pneumonia, unspecified organism Status: Acute Assessment and Plan: Patient is on a is a mycin Rocephin. Cultures are pending. Repeat lactic. Patient is septic. His tachycardia but he has a history of having tachycardia. And he is hypotensive. Patient is given 1 L of fluids in the emergency room additional 500 mL bolus in the ICU. Patient is to be kept on the dry side since he is being a rule out for covid 19. which is negative (3) Acute kidney injury: Code(s): N17.9 - Acute kidney failure, unspecified Status: Acute Assessment and Plan: Potassium was 6.6. He was given a concoction in the emergency room. Repeat BMP. Creatinine 2.2 now. Gently hydrate the patient if needed. Likely secondary to dehydration as patient kidney function is improved with IV fluid and his creatinine today is 1.0 (4) Diabetes mellitus with hyperglycemia: Qualifiers: Diabetes mellitus type: type 2 Diabetes mellitus skilled nursing insulin use: with skilled nursing use Qualified Code(s): E11.65 - Type 2 diabetes mellitus with hyperglycemia; Z79.4 - laborer marine terminal (current) use of insulin Code(s): E11.65 - Type 2 diabetes mellitus with hyperglycemia Status: Acute Assessment and Plan: Accu-Cheks AC and HS. Sliding scale insulin. (5) Congestive heart failure: Code(s): I50.9 - Heart failure, unspecified Status: Chronic Assessment and Plan: Grade 2 diastolic. (6) Obstructive sleep apnea: Code(s): G47.33 - Obstructive sleep apnea (adult) (pediatric) Status: Chronic Assessment and Plan: Patient is not compliant with the CPAP machine (7) HTN (hypertension) with goal to be determined: Code(s): I10 - Essential (primary) hypertension
[2020-01-21 16:52] LABS: Glucose Point of Care 358 (65-105)
[2020-01-21] MEDS: MIDAZOLAM HCL 50 MG in DEXTROSE 5% 90 ML 8 MG IV CONT (16:54)
[2020-01-21 21:59] LABS: Glucose Point of Care 324 (65-105)
[2020-01-22] VITALS (21 sets, daily range): BP systolic 93–153; BP diastolic 55–102; PULSE 63–110; RESP 13–22; TEMP 36.5–37.6; O2SAT 95–98
[2020-01-22] MEDS: INSULIN ASPART (*BKC) 100 UNITS/ML SUB-Q ×5 (01:04→23:41)
[2020-01-22 01:25] LABS: Glucose Point of Care 230 (65-105)
[2020-01-22] MEDS: MIDAZOLAM HCL 50 MG in DEXTROSE 5% 90 ML 12 MG IV CONT ×3 (03:02→19:56)
[2020-01-22 05:05] LABS: Glucose Point of Care 194 (65-105)
[2020-01-22 05:11] LABS: Hematocrit 44.7 % (42.0-52.0); Hemoglobin 15.1 g/dL (14.0-18.0); Mean Corpuscular HGB Conc 33.8 g/dl (32-36); Mean Corpuscular Volume 88.9 fl (80-100); Mean Platelet Volume 10.8 fl (7.4-10.4); Platelet Count Result 435 k/mm3 (150-375); Red Blood Count 5.03 M/mm3 (4.6-6.20); Red Cell Distribution Width 14.9 % (11.5-14.5); White Blood Count 38.9 K/mm3 (4.5-10.0)
[2020-01-22 05:28] LABS: Blood Urea Nitrogen 25 mg/dL (9-20); Calcium 9.3 mg/dL (8.4-10.2); Carbon Dioxide 28 mmol/L (22-30); Chloride 100 mmol/L (98-107); Estimated CRCL calculation 78 ml/min; Estimated Glomerular Filt Rate > 60; Glucose 215 mg/dL (75-110); Magnesium 1.5 mg/dL (1.6-2.3); Phosphorus 3.2 mg/dL (2.5-4.5); Potassium 3.6 mmol/L (3.4-5.0); Sodium 133 mmol/L (137-145)
[2020-01-22 05:29] LABS: Alveolar/Arterial O2 Gradient 152.5 mmHg; Base Excess ABG -0.7 mEq/l (+/-2.0); Fractional Inspired Oxygen 40 %; HCO3 ABG 24.5 mEq/l (22.0-26.0); Oxygen Content ABG 21.3 %vol (16.0-22.0); Oxygen Saturation ABG 96.2 % (95.0-100.0); Oxyhemoglobin 94.8 % THb (90.0-100.0); PCO2 ABG 42.1 mmHg (35.0-45.0); PO2 ABG 84.3 mmHg (80.0-100.0); PO2 FiO2 Ratio Arterial Blood 2.11 %; pH ABG 7.382 (7.350-7.450)
[2020-01-22 05:30] LABS: Arterial Blood Gas Ventilator rate 18 /MIN; Device VENTILATOR; Modified Allen's Test Pass; Site Drawn RIGHT RADIAL
[2020-01-22 05:31] LABS: Arterial Blood Gas PEEP 8 cmH2O; Arterial Blood Gas Tidal Volume 450 ml; Arterial Blood Gas Vent Mode CMV
[2020-01-22] MEDS: MAGNESIUM SULF 2 GM/WATER 50ML 2 GM/50 ML BAG IVPB (08:19)
[2020-01-22] MEDS: POTASSIUM CHLORIDE 20 MEQ PACKET (FOR LIQUID) 40 MEQ FEED TUBE (08:20)
[2020-01-22] MEDS: polyethylene glycoL 3350 17 GM POWD.PACK PO (08:38)
[2020-01-22] MEDS: PANTOPRAZOLE SODIUM IV 40 MG VIAL IV PUSH (08:38)
[2020-01-22] MEDS: HEPARIN SODIUM 5,000 UNITS/ML VIAL 5000 UNITS SUB-Q ×2 (08:38→19:51)
[2020-01-22] MEDS: DORNASE ALFA INH SOLN 1 MG/ML 2.5 ML AMP 2.5 MG INHALATION ×2 (08:45→21:01)
[2020-01-22] MEDS: INSULIN GLARGINE (*BKC) 100 UNITS/ML 40 UNITS SUB-Q ×2 (08:48→19:49)
[2020-01-22] MEDS: methylPREDNISolone SOD SUCC 40 MG VIAL IV PUSH (08:48)
[2020-01-22 08:53] LABS: Glucose Point of Care 200 (65-105)
--- NOTE | 2020-01-22 09:50 | WPDINTPN ---
Progress Note: A&P Assessment and Plan (1) Acute respiratory failure: Qualifiers: Respiratory failure complication: hypoxia and hypercapnia Qualified Code(s): J96.01 - Acute respiratory failure with hypoxia; J96.02 - Acute respiratory failure with hypercapnia Code(s): J96.00 - Acute respiratory failure, unspecified whether with hypoxia or hypercapnia Status: Acute Assessment and Plan: patient initially presented with cough, fevers, altered mental status. Chest x-ray showed pulmonary edema/pneumonia. Lymphopenia, elevated CRP, normal LDH, leukocytosis. Requiring intubation on 01/15/2020 - COVID-19 PCR Negative. isolation was discontinued on 01/17/2020. Patient does not have lymphopenia, procalcitonin <0.10, normal LDH level, CRP 3.8 - Acute respiratory failure is multifactorial secondary to COPD, CHF and community-acquired pneumonia - Chest x-ray and repeat ABGs reviewed - elevated WBC count - patient responding well to diuresis, Will diurese again today - continue fentanyl, Versed for sedation maintain RASS of -2 for adequate ventilator synchrony - Started on Vancomycin, Imipenem and azithromycin - Appreciate pulmonology evaluation and recommendation - continue Pulmozyme (2) Septic shock: Code(s): A41.9 - Sepsis, unspecified organism; R65.21 - Severe sepsis with septic shock Status: Acute Assessment and Plan: RESOLVED: Patient presented with hypotension, tachycardia, leukocytosis, elevated lactic acid, acute kidney injury, requiring Levophed briefly. - preliminary blood culture negative x2 - patient on prednisone at home,placed on Solu-Medrol here as inpatient. Now on daily solu-medrol - leukocytosis worsening - sputum cultures Gram-positive cocci - CT scan of the chest, abdomen and pelvis on 01/21/2020 showed multi segmental right lower lobe air space disease, small to moderate right small pleural effusion (3) Altered mental status: Qualifiers: Altered mental status type: unspecified Qualified Code(s): R41.82 - Altered mental status, unspecified Code(s): R41.82 - Altered mental status, unspecified Status: Acute Assessment and Plan: altered mental status likely related to hypercapnic respiratory failure with pH of 7.16 - patient also has a history of opioid use and cannabis and his U tox when he was at [facility] in November 2019. 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 - daily sedation vacation - patient is following commands (4) Pneumonia: Qualifiers: Laterality: unspecified laterality Lung location: unspecified part of lung Pneumonia type: due to unspecified organism Qualified Code(s): J18.9 - Pneumonia, unspecified organism Code(s): J18.9 - Pneumonia, unspecified organism Status: Acute Assessment and Plan: chest x-ray shows pulmonary edema versus pneumonia, - patient on antibiotics as above - Pulmozyme added - (5) Acute kidney injury: Code(s): N17.9 - Acute kidney failure, unspecified Status: Acute Assessment and Plan: RESOLVED; patient presented with acute kidney injury, no known history of of kidney disease ( last known creatinine was 0.8 on 12/04/2019) - creatinine 0.9 this morning. , lactic acid has normalized - HYPERKALEMIA: resolved - continue to monitor urine output, renal function electrolytes - magnesium replaced (6) Elevated troponin: Code(s): R79.89 - Other specified abnormal findings of blood chemistry Status: Acute Assessment and Plan: elevated troponin, 0.538. This could be related to type 2 infarction, EKG showed borderline ST T wave abnormality in the inferior lateral leads with sinus tachycardia (7) DVT prophylaxis: Code(s): Z29.9 - Encounter for prophylactic measures, unspecified Status: Acute Assessment and Plan:
--- NOTE | 2020-01-22 11:44 | PCDIET ---
ICU Rounding Note: Patient tolerating Glucerna 1.2 at 50mL/hr without residuals or reported issues. Last recorded weight is 99.2kg which is increased from last review. Bowel Motility: No documented BM. MD adding medication this date. Labs Reviewed: Glu (200), BUN (25), Na (133), Mg (1.5) Meds Noted: Zithromax, Fentanyl, Primaxin, Novolog, Lantus, Solu Medrol, Versed, Protonix, Miralax, Vancomycin Additional Notes: Dulcolax ordered this date. s/p MgSO4 and KCl. Left knee scab and right wrist blister. Following daily in ICU rounds. Assessing/reassessing every Wednesday/Wednesday.
--- NOTE | 2020-01-22 12:27 | PM.PNPUL ---
Progress Note: A&P Assessment and Plan (1) Nosocomial pneumonia: Code(s): J18.9 - Pneumonia, unspecified organism; Y95 - Nosocomial condition Status: Acute Assessment and Plan: - Antibiotic coverage changed yesterday to imipenem and Vancomycin, today is day #2. Stopped Ceftriaxone. Still getting azithromycin. - sputum culture resent - - blood, urine and sputum. - agree with diuresis for pleural effusions - He is on decreased sedation with versed and fentanyl, can open eyes, nod to questions. - CPAP trial anytime; he is on 40%, improved and PEEP at 8 cm H20. - continue duo nebs as ordered. - continue nutritional support, electrolyte replacement. Subjective Date/time seen: 01/22/20 12:27 This 59 yo man is seen in follow up for nosocomial pneumonia. Lightly sedated with versed and fentanyl; propofol is off. He is able to open eyes, moves extremities, shakes head 'no' when asked about pain. HIs secretions are thick. He had a chest/abdomen CT today Vanco and imipenem were started yesterday. He has a high WBC at baseline due to myelodysplastic disorder. Today, increased to 38.9. Patient's care was discussed with Dr Beltre in the ICU. Review of Systems Review of Systems: ROS unobtainable: Yes unobtainable due to endotracheal tube Exam Const: General: no acute distress HENMT: Mouth: Yes moist mucous membranes Eyes: Other: conjuctivitis is present Neck: Neck: supple and no JVD Resp: Auscultation: no crackles, no rales, no rhonchi, no wheezes and diminished lung sounds Cardio: Rate: regular rate Rhythm: regular rhythm Heart sounds: no murmurs GI: Auscultation: normal bowel sounds Skin: General skin exam: normal color and no rashes or lesions noted Extrem: General: normal to inspection, no edema and no pedal edema Objective Data Vital Signs Vital Signs: Vital Signs - 24 hr 01/21/20 14:00 01/21/20 14:02 01/21/20 16:00 Temperature Pulse Rate 112 H 104 H 110 H Respiratory Rate 18 99 H Blood Pressure 141/74 H 167/84 H Pulse Oximetry 95 95 18 L 01/21/20 17:41 01/21/20 18:00 01/21/20 20:00 Temperature 37.2 C Pulse Rate 103 H 109 H 114 H Respiratory Rate 18 18 Blood Pressure 156/65 H 156/80 H Pulse Oximetry 97 98 97 01/21/20 20:20 01/21/20 20:25 01/21/20 20:30 Temperature Pulse Rate 117 H 117 H 114 H Respiratory Rate 20 20 Blood Pressure Pulse Oximetry 98 01/21/20 22:00 01/21/20 23:40 01/22/20 00:00 Temperature 37.6 C Pulse Rate 109 H 91 105 H Respiratory Rate 18 18 Blood Pressure 135/66 135/70 Pulse Oximetry 96 97 97 01/22/20 02:00 01/22/20 03:25 01/22/20 04:00 Temperature 37.1 C Pulse Rate 76 104 H 90 Respiratory Rate 18 18 Blood Pressure 118/59 L 110/55 L Pulse Oximetry 98 97 96 01/22/20 04:05 01/22/20 04:55 01/22/20 06:00 Temperature Pulse Rate 101 H 93 Respiratory Rate 18 Blood Pressure 115/63 Pulse Oximetry 97 97 95 01/22/20 08:00 01/22/20 08:45 01/22/20 08:55 Temperature 36.6 C Pulse Rate 100 110 H 110 H Respiratory Rate 15 22 H 22 H Blood Pressure 104/61 Pulse Oximetry 97 98 01/22/20 10:00 Temperature Pulse Rate 88 Respiratory Rate 16 Blood Pressure 106/57 L Pulse Oximetry 95 Intake/Output Intake/Output: Intake & Output 01/19/20 01/20/20 01/21/20 01/22/20 23:59 23:59 23:59 23:59 Intake Total 2708 2386 3033 2024 Output Total 2800 2850 2600 1625 Balance -92 -464 433 399 Meds/Results Medications: Active Medications Generic Name Dose Route Start Last Admin Trade Name Freq PRN Reason Stop Dose Admin Dornase Avhe 2.5 mg 01/21/20 08:02 01/22/20 08:45 Pulmozyme INHALATION 2.5 mg Q12HRT CINDI Administration Heparin Sodium (Porcine) 5,000 units 01/15/20 21:00 01/22/20 08:38 Heparin Sodium SUB-Q 5,000 units Q12HR CINDI Administration Azithromycin 500 mg in 250 mls @ 250 mls/hr 01/16/20 08:00 01/22/20 09:19 Zithromax IVPB Infused Q24H CINDI Infusion
[2020-01-22] MEDS: BISACODYL 10 MG SUPPOSITORY RECTAL (12:55)
[2020-01-22 12:59] LABS: Glucose Point of Care 298 (65-105)
--- NOTE | 2020-01-22 14:50 | PM.IMPN ---
Progress Note: A&P Assessment and Plan (1) Acute respiratory failure: Qualifiers: Respiratory failure complication: hypoxia and hypercapnia Qualified Code(s): J96.01 - Acute respiratory failure with hypoxia; J96.02 - Acute respiratory failure with hypercapnia Code(s): J96.00 - Acute respiratory failure, unspecified whether with hypoxia or hypercapnia Status: Acute Assessment and Plan: 01/22/20 14:50 The patient is sedated and intubated. Sedation and ventilator settings per Dr. Beltre.covid 19 swab was obtained and sent to the state lab for results. He was placed in isolation. Fentanyl Versed were started. patient was started on ceftriaxone in a Zithromax and azithromycin. Patient is hypercapnic. Patient is supported with vasopressors. 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 to emergency depart patient was hypoglycemic with blood sugar of 42 and response patient was treated and his blood sugar did improve however he remained unresponsive he was brought to the emergency department for further evaluation no detail was available as patient was not able to provide any history, ABG showed patient patient was hypoxic hypercapnic respiratory failure and unresponsive patient was intubated in the ER was also found have hypotension and central line was placed, patient was transferred to ICU concerned the patient may be positive for Covid 19, however patient is Covid 19 is negative, currently patient on vent unable to provide any review of symptoms, repeat chest x-ray on 01/17 showed worsing pneumonia, PEEP was reduced to 5 from 8 and patient desated so he was placed on PEEP of 8, however chest x-ray does not show any improvement in pneumonia but unable to tolerate low PEEP and was continued at 8, patient was seen by gis administrator and switch the patient to meropenem azithromycin and vancomycin for 7 days, unable to extubate, Will [facility] patient is seen by core shaper top and gis administrator (2) Pneumonia: Qualifiers: Laterality: unspecified laterality Lung location: unspecified part of lung Pneumonia type: due to unspecified organism Qualified Code(s): J18.9 - Pneumonia, unspecified organism Code(s): J18.9 - Pneumonia, unspecified organism Status: Acute Assessment and Plan: Patient is on a is a mycin Rocephin. Cultures are pending. Repeat lactic. Patient is septic. His tachycardia but he has a history of having tachycardia. And he is hypotensive. Patient is given 1 L of fluids in the emergency room additional 500 mL bolus in the ICU. Patient is to be kept on the dry side since he is being a rule out for covid 19. which is negative (3) Acute kidney injury: Code(s): N17.9 - Acute kidney failure, unspecified Status: Acute Assessment and Plan: Potassium was 6.6. He was given a concoction in the emergency room. Repeat BMP. Creatinine 2.2 now. Gently hydrate the patient if needed. Likely secondary to dehydration as patient kidney function is improved with IV fluid and his creatinine today is 1.0 (4) Diabetes mellitus with hyperglycemia: Qualifiers: Diabetes mellitus type: type 2 Diabetes mellitus press tender long goods insulin use: with press tender long goods use Qualified Code(s): E11.65 - Type 2 diabetes mellitus with hyperglycemia; Z79.4 - exterminator helper (current) use of insulin Code(s): E11.65 - Type 2 diabetes mellitus with hyperglycemia Status: Acute Assessment and Plan: Accu-Cheks AC and HS. Sliding scale insulin. (5) Congestive heart failure: Code(s): I50.9 - Heart failure, unspecified Status: Chronic Assessment and Plan: Grade 2 diastolic. (6) Obstructive sleep apnea: Code(s): G47.33 - Obstructive sleep apnea (adult) (pediatric) Status: Chronic Assessment and Plan: Patient is not compliant with the CPAP machine (7) HTN (hypertension) with goal to be determined: Code(s): I10 - Essential (antelmo
[2020-01-22 17:22] LABS: Glucose Point of Care 312 (65-105)
[2020-01-22 19:57] LABS: Glucose Point of Care 328 (65-105)
[2020-01-22 23:40] LABS: Glucose Point of Care 262 (65-105)
[2020-01-23] VITALS (19 sets, daily range): BP systolic 97–146; BP diastolic 52–74; PULSE 62–118; RESP 12–20; TEMP 36.6–37.3; O2SAT 95–99
[2020-01-23 02:02] LABS: Vancomycin Trough 18.9 ug/mL (10.0-20.0)
[2020-01-23] MEDS: MIDAZOLAM HCL 50 MG in DEXTROSE 5% 90 ML 12 MG IV CONT (04:25)
[2020-01-23 05:25] LABS: Base Excess ABG -1.2 mEq/l (+/-2.0); Carboxyhemoglobin 0.5 % THb (0-2.0); Device VENTILATOR; Fractional Inspired Oxygen 40 %; HCO3 ABG 22.7 mEq/l (22.0-26.0); Methemoglobin ABG 0.4 %THb (0-1.5); Oxygen Content ABG 18.9 %vol (16.0-22.0); Oxygen Saturation ABG 96.4 % (95.0-100.0); PCO2 ABG 35.8 mmHg (35.0-45.0); PO2 FiO2 Ratio Arterial Blood 2.08 %; Reduced Hemoglobin 4.1 %THb (0-5.0); Site Drawn RIGHT BRACHIAL; Total Hemoglobin 14.1 g/dL (12.0-18.0)
[2020-01-23 05:26] LABS: Arterial Blood Gas PEEP 8 cmH2O; Arterial Blood Gas Tidal Volume 450 ml; Arterial Blood Gas Vent Mode CMV; Arterial Blood Gas Ventilator rate 18 /MIN
[2020-01-23 05:49] LABS: Glucose Point of Care 157 (65-105)
[2020-01-23 05:56] LABS: Hematocrit 38.3 % (42.0-52.0); Hemoglobin 13.1 g/dL (14.0-18.0); Mean Corpuscular HGB Conc 34.2 g/dl (32-36); Mean Corpuscular Hemoglobin 30.5 pg (26-34); Mean Corpuscular Volume 89.3 fl (80-100); Platelet Count Result 408 k/mm3 (150-375); Red Blood Count 4.29 M/mm3 (4.6-6.20); Red Cell Distribution Width 14.9 % (11.5-14.5); White Blood Count 30.9 K/mm3 (4.5-10.0)
[2020-01-23 06:06] LABS: Blood Urea Nitrogen 33 mg/dL (9-20); Calcium 9.2 mg/dL (8.4-10.2); Carbon Dioxide 26 mmol/L (22-30); Chloride 101 mmol/L (98-107); Estimated CRCL calculation 79 ml/min; Estimated Glomerular Filt Rate > 60; Glucose 159 mg/dL (75-110); Magnesium 1.7 mg/dL (1.6-2.3); Phosphorus 3.5 mg/dL (2.5-4.5); Potassium 3.8 mmol/L (3.4-5.0); Sodium 132 mmol/L (137-145); Triglycerides 242 mg/dL (<150)
[2020-01-23] MEDS: DORNASE ALFA INH SOLN 1 MG/ML 2.5 ML AMP 2.5 MG INHALATION ×2 (08:11→20:33)
--- NOTE | 2020-01-23 09:05 | WPDINTPN ---
Progress Note: A&P Assessment and Plan (1) Acute respiratory failure: Qualifiers: Respiratory failure complication: hypoxia and hypercapnia Qualified Code(s): J96.01 - Acute respiratory failure with hypoxia; J96.02 - Acute respiratory failure with hypercapnia Code(s): J96.00 - Acute respiratory failure, unspecified whether with hypoxia or hypercapnia Status: Acute Assessment and Plan: patient initially presented with cough, fevers, altered mental status. Chest x-ray showed pulmonary edema/pneumonia. Lymphopenia, elevated CRP, normal LDH, leukocytosis. Requiring intubation on 01/15/2020 - COVID-19 PCR Negative. isolation was discontinued on 01/17/2020. Patient does not have lymphopenia, procalcitonin <0.10, normal LDH level, CRP 3.8 - Acute respiratory failure is multifactorial secondary to COPD, CHF and community-acquired pneumonia - Chest x-ray and repeat ABGs reviewed - WBC count trending down - patient responding well - continue fentanyl, Versed, Precedex infusions for sedation, will decrease fentanyl and Versed and increased Precedex infusion - continue Vancomycin, Imipenem. Discontinue azithromycin - Appreciate pulmonology evaluation and recommendation - continue Pulmozyme (2) Septic shock: Code(s): A41.9 - Sepsis, unspecified organism; R65.21 - Severe sepsis with septic shock Status: Acute Assessment and Plan: RESOLVED: Patient presented with hypotension, tachycardia, leukocytosis, elevated lactic acid, acute kidney injury, requiring Levophed briefly. - preliminary blood culture negative x2 - patient on prednisone at home,placed on Solu-Medrol here as inpatient. Now on daily solu-medrol - leukocytosis worsening - sputum cultures 01/21/2020 growing Staph aureus, sensitivities pending - blood and urine cultures from 01/22/2020 pending - CT scan of the chest, abdomen and pelvis on 01/21/2020 showed multi segmental right lower lobe air space disease, small to moderate right small pleural effusion (3) Altered mental status: Qualifiers: Altered mental status type: unspecified Qualified Code(s): R41.82 - Altered mental status, unspecified Code(s): R41.82 - Altered mental status, unspecified Status: Acute Assessment and Plan: altered mental status likely related to hypercapnic respiratory failure with pH of 7.16 - patient also has a history of opioid use and cannabis and his U tox when he was at [facility] in November 2019. 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 - daily sedation vacation - patient is following commands (4) Pneumonia: Qualifiers: Laterality: unspecified laterality Lung location: unspecified part of lung Pneumonia type: due to unspecified organism Qualified Code(s): J18.9 - Pneumonia, unspecified organism Code(s): J18.9 - Pneumonia, unspecified organism Status: Acute Assessment and Plan: chest x-ray shows pulmonary edema versus pneumonia, Staph aureus in sputum - patient on antibiotics as above - Pulmozyme added - (5) Acute kidney injury: Code(s): N17.9 - Acute kidney failure, unspecified Status: Acute Assessment and Plan: RESOLVED; patient presented with acute kidney injury, no known history of of kidney disease ( last known creatinine was 0.8 on 12/04/2019) - creatinine 0.9 this morning. , lactic acid has normalized - HYPERKALEMIA: resolved - continue to monitor urine output, renal function electrolytes - magnesium replaced (6) Elevated troponin: Code(s): R79.89 - Other specified abnormal findings of blood chemistry Status: Acute Assessment and Plan: elevated troponin, 0.538. This could be related to type 2 infarction, EKG showed borderline ST T wave abnormality in the inferior lateral leads with sinus tachycardia (7) DVT prophylaxis:
[2020-01-23] MEDS: INSULIN GLARGINE (*BKC) 100 UNITS/ML 40 UNITS SUB-Q ×2 (09:41→21:10)
[2020-01-23 09:48] LABS: Glucose Point of Care 171 (65-105)
[2020-01-23] MEDS: PANTOPRAZOLE SODIUM IV 40 MG VIAL IV PUSH (09:53)
[2020-01-23] MEDS: methylPREDNISolone SOD SUCC 40 MG VIAL IV PUSH (09:53)
[2020-01-23] MEDS: HEPARIN SODIUM 5,000 UNITS/ML VIAL 5000 UNITS SUB-Q ×2 (09:53→22:35)
[2020-01-23] MEDS: polyethylene glycoL 3350 17 GM POWD.PACK PO (09:57)
[2020-01-23] MEDS: MINERAL OIL 30 ML UDC FEED TUBE (10:14)
--- NOTE | 2020-01-23 10:50 | PCDIET ---
Nutrition Follow-Up Complete: Nutrition Diagnosis: Inadequate oral intake related to oral intubation as evidenced by NPO status. Nutrition Goal: Patient to meet estimated nutritional needs. Goal met. Patient tolerating Glucerna 1.2 at 50mL/hr goal rate. No significant residuals. Last recorded weight is 95 kg. Bowel Motility: No documented BM. Patient on Miralax. MD ordered to wean down Fentanyl. Labs Reviewed: Glu (159), BUN (33), Cr (1.0), Na (132), TG (242) Meds Noted: Precedex, Fentanyl, Heparin, Primaxin, Novolog, Lantus, Solu Medrol, Versed, Protonix, Miralax, Vancomycin Additional Notes: Right wrist blister. Left knee scab. No open sores documented. Recommend continuing present tube feeding. Would continue to add medication(s) to promote BM, as medically appropriate. Nutrition Monitoring and Evaluation: Follow up every Wednesday/Wednesday. Follow daily in ICU rounds.
--- NOTE | 2020-01-23 12:34 | PM.IMPN ---
Progress Note: A&P Assessment and Plan (1) Acute respiratory failure: Qualifiers: Respiratory failure complication: hypoxia and hypercapnia Qualified Code(s): J96.01 - Acute respiratory failure with hypoxia; J96.02 - Acute respiratory failure with hypercapnia Code(s): J96.00 - Acute respiratory failure, unspecified whether with hypoxia or hypercapnia Status: Acute Assessment and Plan: 01/23/20 12:34 The patient is sedated and intubated. Sedation and ventilator settings per Dr. Beltre.covid 19 swab was obtained and sent to the state lab for results. He was placed in isolation. Fentanyl Versed were started. patient was started on ceftriaxone in a Zithromax and azithromycin. Patient is hypercapnic. Patient is supported with vasopressors. 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 to emergency depart patient was hypoglycemic with blood sugar of 42 and response patient was treated and his blood sugar did improve however he remained unresponsive he was brought to the emergency department for further evaluation no detail was available as patient was not able to provide any history, ABG showed patient patient was hypoxic hypercapnic respiratory failure and unresponsive patient was intubated in the ER was also found have hypotension and central line was placed, patient was transferred to ICU concerned the patient may be positive for Covid 19, however patient is Covid 19 is negative, currently patient on vent unable to provide any review of symptoms, repeat chest x-ray on 01/17 showed worsing pneumonia, PEEP was reduced to 5 from 8 and patient desated so he was placed on PEEP of 8, however chest x-ray does not show any improvement in pneumonia but unable to tolerate low PEEP and was continued at 8, patient was seen by aircraft engine mechanic and on 01/20 switched the patient to meropenem azithromycin and vancomycin for 7 days, patient clinical symptoms are improving sedation is reduced and he on SVT in hope to exutubate tomorrow, patient is seen by embedded systems developer and aircraft engine mechanic (2) Pneumonia: Qualifiers: Laterality: unspecified laterality Lung location: unspecified part of lung Pneumonia type: due to unspecified organism Qualified Code(s): J18.9 - Pneumonia, unspecified organism Code(s): J18.9 - Pneumonia, unspecified organism Status: Acute Assessment and Plan: Patient is on a is a mycin Rocephin. Cultures are pending. Repeat lactic. Patient is septic. His tachycardia but he has a history of having tachycardia. And he is hypotensive. Patient is given 1 L of fluids in the emergency room additional 500 mL bolus in the ICU. Patient is to be kept on the dry side since he is being a rule out for covid 19. which is negative , plan is above. (3) Acute kidney injury: Code(s): N17.9 - Acute kidney failure, unspecified Status: Acute Assessment and Plan: Potassium was 6.6. He was given a concoction in the emergency room. Repeat BMP. Creatinine 2.2 now. Gently hydrate the patient if needed. Likely secondary to dehydration as patient kidney function is improved with IV fluid and his creatinine today is 1.0 (4) Diabetes mellitus with hyperglycemia: Qualifiers: Diabetes mellitus type: type 2 Diabetes mellitus longterm insulin use: with longterm use Qualified Code(s): E11.65 - Type 2 diabetes mellitus with hyperglycemia; Z79.4 - equipment operator intermodal yard (current) use of insulin Code(s): E11.65 - Type 2 diabetes mellitus with hyperglycemia Status: Acute Assessment and Plan: Accu-Cheks AC and HS. Sliding scale insulin. (5) Congestive heart failure: Code(s): I50.9 - Heart failure, unspecified Status: Chronic Assessment and Plan: Grade 2 diastolic. (6) Obstructive sleep apnea: Code(s): G47.33 - Obstructive sleep apnea (adult) (pediatric) Status: Chronic Assessment and Plan: Patient is not compliant with the C
[2020-01-23] MEDS: INSULIN ASPART (*BKC) 100 UNITS/ML SUB-Q ×3 (13:52→21:11)
[2020-01-23 14:05] LABS: Glucose Point of Care 241 (65-105)
[2020-01-23] MEDS: MIDAZOLAM HCL 50 MG in DEXTROSE 5% 90 ML 8 MG IV CONT (15:36)
--- NOTE | 2020-01-23 15:36 | PM.PNPUL ---
Progress Note: A&P Assessment and Plan (1) Nosocomial pneumonia: Code(s): J18.9 - Pneumonia, unspecified organism; Y95 - Nosocomial condition Status: Acute Assessment and Plan: - Antibiotic coverage changed 01/21/2020 to imipenem and Vancomycin, today is day #3. Stopped Ceftriaxone. Still getting azithromycin. - sputum culture resent - - blood, urine and sputum. SPutum is growing Staph aureus - agree with diuresis for pleural effusions - He is on decreased sedation with Precedex added today, lower doses of versed and fentanyl, can open eyes, nod to questions. - Now in ASV mode, with plans to change to SBT tomorrow' he is on 40%, improved and PEEP at 8 cm H20. - continue duo nebs as ordered. - continue nutritional support, electrolyte replacement, glycemic control. Subjective Date/time seen: 01/23/20 15:36 This 59 yo man is seen in follow up for nosocomial pneumonia, acute respiratory failure. He is now in ASV mode. Sedation has been changed to Precedex 0.5 mcg/kg/hour Versed 4 mg/hout Fentanyl 150 mcg/hour He can respond to voice, secretions are thick. Vanco and imipenem were started 01/21/2020; Today, WBC down to 30.9. Has high WBC at baseline due to myelodysplastic disorder. CXR roday is stable. Patient's care was discussed with Dr Beltre in the ICU. Review of Systems Review of Systems: All systems reviewed & are unremarkable except as noted in HPI and below ROS unobtainable: Yes unobtainable due to endotracheal tube Gastrointestinal: Comments: Glucerna 1.2 @ 50 ml/hour Exam Const: General: no acute distress HENMT: Mouth: Yes moist mucous membranes Neck: Neck: supple and no JVD Resp: Auscultation: no crackles, no rales, no rhonchi, no wheezes and diminished lung sounds (overall clear exam) Cardio: Rate: regular rate Rhythm: regular rhythm Heart sounds: no murmurs GI: Auscultation: normal bowel sounds Skin: General skin exam: normal color and no rashes or lesions noted Extrem: General: normal to inspection, no edema and no pedal edema Objective Data Vital Signs Vital Signs: Vital Signs - 24 hr 01/22/20 16:00 01/22/20 18:00 01/22/20 20:00 Temperature 37.3 C 36.5 C Pulse Rate 101 H 88 64 Respiratory Rate 16 16 18 Blood Pressure 101/58 L 99/61 L 93/57 L Pulse Oximetry 96 97 96 01/22/20 21:01 01/22/20 22:00 01/22/20 23:59 Temperature Pulse Rate 64 63 83 Respiratory Rate 18 Blood Pressure 96/56 L Pulse Oximetry 96 96 97 01/23/20 00:00 01/23/20 02:00 01/23/20 02:12 Temperature 36.6 C Pulse Rate 85 65 76 Respiratory Rate 18 18 Blood Pressure 146/74 H 97/59 L Pulse Oximetry 96 96 97 01/23/20 04:00 01/23/20 05:05 01/23/20 06:00 Temperature 36.6 C Pulse Rate 62 62 68 Respiratory Rate 18 18 Blood Pressure 98/58 L 116/61 Pulse Oximetry 96 97 96 01/23/20 08:00 01/23/20 08:11 01/23/20 10:00 Temperature Pulse Rate 64 85 107 H Respiratory Rate 20 Blood Pressure Pulse Oximetry 97 Intake/Output Intake/Output: Intake & Output 01/20/20 01/21/20 01/22/20 01/23/20 23:59 23:59 23:59 23:59 Intake Total 2386 3033 3359.3 1689.7 Output Total 2850 2600 3725 550 Balance -464 433 -365.7 1139.7 Meds/Results Medications: Active Medications Generic Name Dose Route Start Last Admin Trade Name Freq PRN Reason Stop Dose Admin Dornase Vahe 2.5 mg 01/21/20 08:02 01/23/20 08:11 Pulmozyme INHALATION 2.5 mg Q12HRT CINDI Administration Heparin Sodium (Porcine) 5,000 units 01/15/20 21:00 01/23/20 09:53 Heparin Sodium SUB-Q 5,000 units Q12HR CINDI Administration Fentanyl Citrate 2,500 mcg/ 250 mls @ 15 mls/hr 01/19/20 14:30 01/23/20 14:00 Sodium Chloride IV CONT 150 mcg/hr .[id number] CINDI 15 mls/hr Administration Protocol 150 MCG/HR Midazolam HCl 50 mg/ Dextrose 100 mls @ 12 mls/hr 01/20/20 00:30 01/23/20 04:25 IV CONT 6 mg/hr .Q8H20M CINDI 12 mls/hr Administration Protocol
[2020-01-23 18:26] LABS: Glucose Point of Care 321 (65-105)
[2020-01-23 19:47] LABS: Glucose Point of Care 337 (65-105)
[2020-01-24] VITALS (20 sets, daily range): BP systolic 104–160; BP diastolic 58–84; PULSE 57–100; RESP 12–25; TEMP 36.5–37.3; O2SAT 89–99
[2020-01-24 00:37] LABS: Glucose Point of Care 300 (65-105)
[2020-01-24] MEDS: INSULIN ASPART (*BKC) 100 UNITS/ML SUB-Q ×4 (00:41→20:34)
[2020-01-24 04:28] LABS: Alveolar/Arterial O2 Gradient 155.6 mmHg; Base Excess ABG -0.3 mEq/l (+/-2.0); Carboxyhemoglobin 0.1 % THb (0-2.0); Fractional Inspired Oxygen 40 %; HCO3 ABG 23.8 mEq/l (22.0-26.0); Methemoglobin ABG 0.5 %THb (0-1.5); Oxygen Saturation ABG 96.8 % (95.0-100.0); Oxyhemoglobin 95.4 % THb (90.0-100.0); PCO2 ABG 37.5 mmHg (35.0-45.0); PO2 ABG 86.5 mmHg (80.0-100.0); PO2 FiO2 Ratio Arterial Blood 2.16 %; Total Hemoglobin 14.9 g/dL (12.0-18.0)
[2020-01-24 04:29] LABS: Device VENTILATOR; Modified Allen's Test Pass; Site Drawn RIGHT RADIAL
[2020-01-24 04:30] LABS: Arterial Blood Gas PEEP 8 cmH2O; Arterial Blood Gas Vent Mode ASV
[2020-01-24 05:44] LABS: Glucose Point of Care 264 (65-105)
[2020-01-24 06:15] LABS: Basophils Absolute Auto 0.1 K/mm3 (0.0-0.1); Basophils Percent Auto 0.3 % (0.2-1.2); Eosinophils Absolute Auto 0.7 K/mm3 (0-0.3); Eosinophils Percent Auto 2.2 % (0-4.4); Hematocrit 40.6 % (42.0-52.0); Immature Granulocyte Absolute 1.04 K/mm3 (0.00-0.031); Immature Granulocyte Percent A 3.3 % (0-0.5); Lymphocytes Absolute Auto 4.83 K/mm3 (0.9-3.2); Lymphocytes Percent Auto 15.5 % (18.3-44.2); Mean Corpuscular HGB Conc 34.5 g/dl (32-36); Mean Corpuscular Hemoglobin 30.3 pg (26-34); Mean Corpuscular Volume 87.9 fl (80-100); Mean Platelet Volume 11.4 fl (7.4-10.4); Monocytes Absolute Auto 2.1 K/mm3 (0.1-0.6); Monocytes Percent Auto 6.9 % (2.6-8.5); Neutrophils Absolute Auto 22.3 K/mm3 (1.3-6.7); Neutrophils Percent Auto 71.8 % (45.5-73.1); Nucleated Red Blood Cells Perc 0.1 % (0.0-0.2); Platelet Count Result 488 k/mm3 (150-375); Red Blood Count 4.62 M/mm3 (4.6-6.20); Red Cell Distribution Width 14.6 % (11.5-14.5); White Blood Count 31.1 K/mm3 (4.5-10.0)
[2020-01-24 06:31] LABS: Blood Urea Nitrogen 28 mg/dL (9-20); CRP 4.6 mg/dL (<1.0); Calcium 9.2 mg/dL (8.4-10.2); Carbon Dioxide 26 mmol/L (22-30); Chloride 99 mmol/L (98-107); Estimated CRCL calculation 96 ml/min; Estimated Glomerular Filt Rate > 60; Glucose 277 mg/dL (75-110); Magnesium 1.2 mg/dL (1.6-2.3); Phosphorus 2.2 mg/dL (2.5-4.5); Sodium 131 mmol/L (137-145)
[2020-01-24] MEDS: DORNASE ALFA INH SOLN 1 MG/ML 2.5 ML AMP 2.5 MG INHALATION ×2 (08:09→19:46)
[2020-01-24 08:23] LABS: Glucose Point of Care 237 (65-105)
[2020-01-24] MEDS: INSULIN GLARGINE (*BKC) 100 UNITS/ML 40 UNITS SUB-Q ×2 (09:10→20:36)
[2020-01-24] MEDS: PANTOPRAZOLE SODIUM IV 40 MG VIAL IV PUSH (09:10)
[2020-01-24] MEDS: POTASSIUM/PHOSPHORUS/SODIUM 1.5 GM PACKET 1 PACKET FEED TUBE (09:10)
[2020-01-24] MEDS: methylPREDNISolone SOD SUCC 40 MG VIAL IV PUSH (09:10)
[2020-01-24] MEDS: HEPARIN SODIUM 5,000 UNITS/ML VIAL 5000 UNITS SUB-Q ×2 (09:10→20:30)
[2020-01-24] MEDS: MINERAL OIL 30 ML UDC FEED TUBE (09:15)
[2020-01-24] MEDS: MAGNESIUM SULF 2 GM/WATER 50ML 2 GM/50 ML BAG IVPB (09:18)
[2020-01-24] MEDS: polyethylene glycoL 3350 17 GM POWD.PACK PO (09:18)
[2020-01-24] MEDS: FUROSEMIDE INJ 40 MG/4 ML VIAL IV PUSH (09:18)
[2020-01-24 11:48] LABS: Alveolar/Arterial O2 Gradient 171.3 mmHg; Base Excess ABG 1.5 mEq/l (+/-2.0); Device VENTILATOR; Fractional Inspired Oxygen 40 %; HCO3 ABG 24.9 mEq/l (22.0-26.0); Modified Allen's Test Pass; Oxygen Content ABG 19.9 %vol (16.0-22.0); Oxygen Saturation ABG 95.5 % (95.0-100.0); Oxyhemoglobin 93.2 % THb (90.0-100.0); PCO2 ABG 35.6 mmHg (35.0-45.0); PO2 FiO2 Ratio Arterial Blood 1.83 %; Site Drawn RIGHT RADIAL; Total Hemoglobin 15.2 g/dL (12.0-18.0); pH ABG 7.462 (7.350-7.450)
[2020-01-24 11:49] LABS: Arterial Blood Gas Pressure Support 8 cmH2O; Arterial Blood Gas Vent Mode SPONTANEOUS
--- NOTE | 2020-01-24 12:27 | PCFNICU ---
ICU Rounding Note: Pt current nutrition is Glucerna 1.2 at 50 ml/hr. Nutrition recommendation: Agree Last recorded weight is 97.7kg. Bowel Motility:No BM reported. Labs Reviewed: Mg 1.2, Na 131,BUN 28 Meds Noted: Solu-Medrol, Lantus Additional Notes: Patient tolerating tube feedings of Glucerna 1.2 at 50 ml/hr. Plans for Extubation today. Following daily in ICU rounds. Assessing/reassessing every Wednesday and Wednesday.
[2020-01-24 12:35] LABS: Glucose Point of Care 191 (65-105)
--- NOTE | 2020-01-24 13:51 | WPDINTPN ---
Progress Note: A&P Assessment and Plan (1) Acute respiratory failure: Qualifiers: Respiratory failure complication: hypoxia and hypercapnia Qualified Code(s): J96.01 - Acute respiratory failure with hypoxia; J96.02 - Acute respiratory failure with hypercapnia Code(s): J96.00 - Acute respiratory failure, unspecified whether with hypoxia or hypercapnia Status: Acute Assessment and Plan: patient initially presented with cough, fevers, altered mental status. Chest x-ray showed pulmonary edema/pneumonia. Lymphopenia, elevated CRP, normal LDH, leukocytosis. Requiring intubation on 01/15/2020 - COVID-19 PCR Negative. isolation was discontinued on 01/17/2020. Patient does not have lymphopenia, procalcitonin <0.10, normal LDH level, CRP 3.8 - Acute respiratory failure is multifactorial secondary to COPD, CHF and community-acquired pneumonia - Chest x-ray and repeat ABGs reviewed - WBC count trending down - patient responding well - discontinued fentanyl, patient on Precedex, placed on SBT, did well, post SBT ABGs look alert, patient was extubated successfully. - continue Vancomycin, Imipenem. - Appreciate pulmonology evaluation and recommendation - continue Pulmozyme - Patient was given Lasix this morning (2) Septic shock: Code(s): A41.9 - Sepsis, unspecified organism; R65.21 - Severe sepsis with septic shock Status: Acute Assessment and Plan: RESOLVED: Patient presented with hypotension, tachycardia, leukocytosis, elevated lactic acid, acute kidney injury, requiring Levophed briefly. - preliminary blood culture negative x2 - patient on prednisone at home,placed on Solu-Medrol here as inpatient. Now on daily solu-medrol - leukocytosis worsening - sputum cultures 01/21/2020 growing Staph aureus, sensitivities pending - blood and urine cultures from 01/22/2020 pending - CT scan of the chest, abdomen and pelvis on 01/21/2020 showed multi segmental right lower lobe air space disease, small to moderate right small pleural effusion (3) Altered mental status: Qualifiers: Altered mental status type: unspecified Qualified Code(s): R41.82 - Altered mental status, unspecified Code(s): R41.82 - Altered mental status, unspecified Status: Acute Assessment and Plan: RESOLVED: - head CT on presentation showed chronic infarcts. - patient is following commands (4) Pneumonia: Qualifiers: Laterality: unspecified laterality Lung location: unspecified part of lung Pneumonia type: due to unspecified organism Qualified Code(s): J18.9 - Pneumonia, unspecified organism Code(s): J18.9 - Pneumonia, unspecified organism Status: Acute Assessment and Plan: chest x-ray shows pulmonary edema versus pneumonia, MRSA in sputum - patient on antibiotics as above - Pulmozyme added - (5) Acute kidney injury: Code(s): N17.9 - Acute kidney failure, unspecified Status: Acute Assessment and Plan: RESOLVED; patient presented with acute kidney injury, no known history of of kidney disease ( last known creatinine was 0.8 on 12/04/2019) - creatinine 0.9 this morning. , lactic acid has normalized - HYPERKALEMIA: resolved - continue to monitor urine output, renal function electrolytes - magnesium replaced (6) Elevated troponin: Code(s): R79.89 - Other specified abnormal findings of blood chemistry Status: Acute Assessment and Plan: elevated troponin, 0.538. This could be related to type 2 infarction, EKG showed borderline ST T wave abnormality in the inferior lateral leads with sinus tachycardia (7) DVT prophylaxis: Code(s): Z29.9 - Encounter for prophylactic measures, unspecified Status: Acute Assessment and Plan: DVT prophylaxis: Heparin SQ stress ulcer prophylaxis: Protonix (8) Diabetes mellitus with hyperglycemia: Qualifiers: Doreen
--- NOTE | 2020-01-24 15:27 | PM.IMPN ---
Progress Note: A&P Assessment and Plan (1) Acute respiratory failure: Qualifiers: Respiratory failure complication: hypoxia and hypercapnia Qualified Code(s): J96.01 - Acute respiratory failure with hypoxia; J96.02 - Acute respiratory failure with hypercapnia Code(s): J96.00 - Acute respiratory failure, unspecified whether with hypoxia or hypercapnia Status: Acute Assessment and Plan: Thought on the basis of pneumonia COPD and possible diastolic heart failure. Is improving daily and to have spontaneous breathing trial today and possible extubation (2) Sepsis: Code(s): A41.9 - Sepsis, unspecified organism Status: Acute Assessment and Plan: Secondary to pneumonia. Briefly on pressors but pressure adequate now. White count still elevated but did receive steroids also (3) Pneumonia: Qualifiers: Laterality: unspecified laterality Lung location: unspecified part of lung Pneumonia type: due to unspecified organism Qualified Code(s): J18.9 - Pneumonia, unspecified organism Code(s): J18.9 - Pneumonia, unspecified organism Status: Acute Assessment and Plan: Primarily pride or lobe infiltrate. Sputum grew MRSA and remaining on vancomycin with imipenem (4) Acute kidney injury: Code(s): N17.9 - Acute kidney failure, unspecified Status: Acute Assessment and Plan: Creatinine had been 2.2 but now has fallen to 0.8 (5) Elevated troponin: Code(s): R79.89 - Other specified abnormal findings of blood chemistry Status: Acute Assessment and Plan: Flat response and thought secondary to hypoxia and respiratory failure with no acute coronary syndrome (6) Altered mental status: Qualifiers: Altered mental status type: unspecified Qualified Code(s): R41.82 - Altered mental status, unspecified Code(s): R41.82 - Altered mental status, unspecified Status: Acute Assessment and Plan: Hot secondary to hypercapnia and toxic metabolic encephalopathy which has resolved (7) Diabetes mellitus with hyperglycemia: Qualifiers: Diabetes mellitus type: type 2 Diabetes mellitus 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 Lantus and sliding scale. Hemoglobin A1c 8.3 and suspect stress underlying infection along with steroids have raised sugar (8) DVT prophylaxis: Code(s): Z29.9 - Encounter for prophylactic measures, unspecified Status: Acute Assessment and Plan: Subcu heparin Subjective Date/time seen: 01/24/20 15:27 Interval history: Date of visit 01/23. 59-year-old type 2 diabetic admitted with sepsis secondary to pneumonia with respiratory failure. Intubated and mechanically ventilated with IV antibiotics and has slowly improved. Weaning and probable extubation today. Still sedated and ventilated so not communicating. Exam Narrative: Exam Narrative: Blood pressure 138/62 pulse is 80 and regular saturating 96% on FiO2 of 40% with 5 of peep afebrile Pupils equal reactive to light sclera anicteric Mouth ET tube in place Lungs appear clear a cannot hear any definite infiltrates CV regular rate rhythm no murmurs Abdomen soft nontender Extremities without edema distal pulses are 2+ Neuro moves all extremities well when sedation is decreased Objective Data Vital Signs Vital Signs: Vital Signs - 24 hr 01/23/20 16:00 01/23/20 16:48 01/23/20 18:00 Temperature 37.3 C 37.2 C Pulse Rate 65 67 64 Respiratory Rate 14 15 Blood Pressure 123/54 L 125/56 L Pulse Oximetry 96 97 96 01/23/20 20:00 01/23/20 20:33 01/23/20 22:00 Temperature 36.8 C Pulse Rate 62 64 66 Respiratory Rate 16 13 16 Blood Pressure 135/62 114/53 L Pulse Oximet
--- NOTE | 2020-01-24 15:59 | PM.PNPUL ---
Progress Note: A&P Assessment and Plan (1) Nosocomial pneumonia: Code(s): J18.9 - Pneumonia, unspecified organism; Y95 - Nosocomial condition Status: Acute Assessment and Plan: - Antibiotic coverage changed 01/21/2020 to imipenem and Vancomycin, today is day #3. Stopped Ceftriaxone. Still getting azithromycin. Extubated, doing well on 6 L/min. Wean O2 to avoid hyperoxia. - sputum culture resent - - blood, urine and sputum. Sputum is growing Staph aurues (2) Delirium: Code(s): R41.0 - Disorientation, unspecified Status: Acute Assessment and Plan: Due to acute illness. Subjective Date/time seen: 01/24/20 15:59 Interval history: This 59 yo man is seen in follow up for nosocomial pneumonia, acute respiratory failure. Extubated earlier today, on nasal cannula. He is delirious, telling me to call the police because he is being hel against his will. Saturation on 6 L/min is 96%, can be weaned. WBC is stable, 31. Has high WBC at baseline due to myelodysplastic disorder. CXR today is stable. 01/24/2020 1. Stable airspace opacities in right lower lung zone, consistent with atelectasis versus pneumonia. 2. Stable small right pleural effusion. Review of Systems Review of Systems: All systems reviewed & are unremarkable except as noted in HPI and below ROS unobtainable: Yes unobtainable due to endotracheal tube Exam Const: General: no acute distress HENMT: Mouth: Yes moist mucous membranes Eyes: Other: conjuctivitis is present Neck: Neck: supple and no JVD Resp: Auscultation: no crackles, no rales, no rhonchi, no wheezes and diminished lung sounds (overall clear exam) Cardio: Rate: regular rate Rhythm: regular rhythm Heart sounds: no murmurs GI: Auscultation: normal bowel sounds Skin: General skin exam: normal color and no rashes or lesions noted Extrem: General: normal to inspection, no edema and no pedal edema Objective Data Vital Signs Vital Signs: Vital Signs - 24 hr 01/23/20 16:00 01/23/20 16:48 01/23/20 18:00 Temperature 37.3 C 37.2 C Pulse Rate 65 67 64 Respiratory Rate 14 15 Blood Pressure 123/54 L 125/56 L Pulse Oximetry 96 97 96 01/23/20 20:00 01/23/20 20:33 01/23/20 22:00 Temperature 36.8 C Pulse Rate 62 64 66 Respiratory Rate 16 13 16 Blood Pressure 135/62 114/53 L Pulse Oximetry 97 96 96 01/23/20 23:20 01/24/20 00:00 01/24/20 02:00 Temperature 36.5 C Pulse Rate 70 60 57 L Respiratory Rate 16 14 Blood Pressure 156/69 H 160/70 H Pulse Oximetry 96 97 96 01/24/20 04:00 01/24/20 04:31 01/24/20 06:00 Temperature 36.5 C Pulse Rate 86 64 66 Respiratory Rate 16 14 Blood Pressure 135/58 L 158/62 H Pulse Oximetry 99 97 96 01/24/20 08:00 01/24/20 08:09 01/24/20 08:13 Temperature 37.3 C Pulse Rate 75 83 78 Respiratory Rate 14 24 H Blood Pressure 150/63 H Pulse Oximetry 94 95 01/24/20 08:16 01/24/20 10:00 01/24/20 12:00 Temperature 37.3 C 36.6 C Pulse Rate 76 71 71 Respiratory Rate 20 19 12 Blood Pressure 150/84 H 142/63 H Pulse Oximetry 95 89 L 01/24/20 12:04 01/24/20 14:00 Temperature 36.7 C Pulse Rate 81 Respiratory Rate 16 Blood Pressure 139/61 Pulse Oximetry 93 94 Intake/Output Intake/Output: Intake & Output 01/21/20 01/22/20 01/23/20 01/24/20 23:59 23:59 23:59 23:59 Intake Total 3033 3359.3 2889.7 1874 Output Total 2600 3725 2250 1625 Balance 433 -365.7 639.7 249 Meds/Results Medications: Active Medications Generic Name Dose Route Start Last Admin Trade Name Freq PRN Reason Stop Dose Admin Dornase Vahe 2.5 mg 01/21/20 08:02 01/24/20 08:09 Pulmozyme INHALATION 2.5 mg Q12HRT CINDI Administration Heparin Sodium (Porcine) 5,000 units 01/15/20 21:00 01/24/20 09:10 Heparin Sodium SUB-Q 5,000 units Q12HR CINDI
--- NOTE | 2020-01-24 18:09 | PC.NURSE ---
Called Dr. Beltre to notify him Patient is very confused, pulling all lines and velasquez. Patients eyes are very red. Received order for STAT ABG and artificial tears.
[2020-01-24 18:18] LABS: Alveolar/Arterial O2 Gradient 59.5 mmHg; Base Excess ABG 0.2 mEq/l (+/-2.0); Carboxyhemoglobin 0.5 % THb (0-2.0); Fractional Inspired Oxygen 21 %; HCO3 ABG 22.2 mEq/l (22.0-26.0); Methemoglobin ABG 0.4 %THb (0-1.5); Oxygen Content ABG 19.8 %vol (16.0-22.0); Oxygen Saturation ABG 91.4 % (95.0-100.0); Oxyhemoglobin 89.4 % THb (90.0-100.0); PCO2 ABG 29.5 mmHg (35.0-45.0); PO2 ABG 54.9 mmHg (80.0-100.0); PO2 FiO2 Ratio Arterial Blood 2.61 %; Reduced Hemoglobin 9.7 %THb (0-5.0); Total Hemoglobin 15.8 g/dL (12.0-18.0); pH ABG 7.495 (7.350-7.450)
[2020-01-24 18:19] LABS: Device ROOM AIR; Modified Allen's Test Pass; Site Drawn LEFT RADIAL
[2020-01-24 18:48] LABS: Glucose Point of Care 205 (65-105)
[2020-01-24 20:34] LABS: Glucose Point of Care 230 (65-105)
[2020-01-25] VITALS (15 sets, daily range): BP systolic 125–163; BP diastolic 59–88; PULSE 61–130; RESP 16–31; TEMP 36.4–37.6; O2SAT 94–100; BMI 31.1
[2020-01-25 00:54] LABS: Glucose Point of Care 123 (65-105)
[2020-01-25 04:24] LABS: Hematocrit 41.8 % (42.0-52.0); Hemoglobin 14.4 g/dL (14.0-18.0); Mean Corpuscular HGB Conc 34.4 g/dl (32-36); Mean Corpuscular Hemoglobin 29.7 pg (26-34); Mean Corpuscular Volume 86.2 fl (80-100); Mean Platelet Volume 10.9 fl (7.4-10.4); Platelet Count Result 577 k/mm3 (150-375); Red Blood Count 4.85 M/mm3 (4.6-6.20); Red Cell Distribution Width 14.6 % (11.5-14.5); White Blood Count 33.2 K/mm3 (4.5-10.0)
[2020-01-25 04:38] LABS: Blood Urea Nitrogen 24 mg/dL (9-20); Calcium 9.5 mg/dL (8.4-10.2); Carbon Dioxide 28 mmol/L (22-30); Chloride 102 mmol/L (98-107); Estimated CRCL calculation 96 ml/min; Estimated Glomerular Filt Rate > 60; Glucose 64 mg/dL (75-110); Magnesium 1.2 mg/dL (1.6-2.3); Phosphorus 2.7 mg/dL (2.5-4.5); Potassium 3.3 mmol/L (3.4-5.0); Sodium 135 mmol/L (137-145); Triglycerides 184 mg/dL (<150)
[2020-01-25 04:41] LABS: Alveolar/Arterial O2 Gradient 59.8 mmHg; Base Excess ABG 0.7 mEq/l (+/-2.0); Carboxyhemoglobin 0.9 % THb (0-2.0); Device ROOM AIR; Fractional Inspired Oxygen 21 %; HCO3 ABG 23.4 mEq/l (22.0-26.0); Methemoglobin ABG 0.4 %THb (0-1.5); Modified Allen's Test Pass; Oxygen Content ABG 18.6 %vol (16.0-22.0); Oxygen Saturation ABG 89.3 % (95.0-100.0); Oxyhemoglobin 87.4 % THb (90.0-100.0); PCO2 ABG 32.1 mmHg (35.0-45.0); PO2 ABG 51.5 mmHg (80.0-100.0); PO2 FiO2 Ratio Arterial Blood 2.45 %; Reduced Hemoglobin 11.3 %THb (0-5.0); Site Drawn RIGHT RADIAL; Total Hemoglobin 15.2 g/dL (12.0-18.0)
[2020-01-25] MEDS: DEXTROSE 50% 25 GM/50 ML SYRINGE IV PUSH (05:04)
[2020-01-25] MEDS: MAGNESIUM SULF 4 GM/WATER100ML 4 GM/100 ML BAG IVPB (05:11)
[2020-01-25 05:14] LABS: Glucose Point of Care 60 (65-105)
[2020-01-25 05:27] LABS: Glucose Point of Care 138 (65-105)
[2020-01-25 07:46] LABS: Glucose Point of Care 93 (65-105)
[2020-01-25] MEDS: PANTOPRAZOLE SODIUM IV 40 MG VIAL IV PUSH (09:15)
[2020-01-25] MEDS: methylPREDNISolone SOD SUCC 40 MG VIAL IV PUSH (09:15)
[2020-01-25] MEDS: HEPARIN SODIUM 5,000 UNITS/ML VIAL 5000 UNITS SUB-Q ×2 (09:15→20:41)
[2020-01-25] MEDS: WATER, STERILE FOR INJECTION 10 ML VIAL XX (09:25)
--- NOTE | 2020-01-25 09:52 | PCSTNOTE ---
Please refer to the Bedside Swallow Evaluation in the EMR. Please note, silent aspiration cannot be ruled out at bedside.
[2020-01-25] MEDS: DORNASE ALFA INH SOLN 1 MG/ML 2.5 ML AMP 2.5 MG INHALATION ×2 (10:08→21:12)
[2020-01-25 10:22] LABS: Arterial Blood Gas PEEP 5 cmH2O
--- NOTE | 2020-01-25 12:14 | PCDIET ---
ICU Rounding Note: Patient extubated and failed swallow evaluation. 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 Last recorded weight is 90.7kg which is decreased. -I/O. Bowel Motility: No documented bowel movement. MD adding suppository. Labs Reviewed: Glu (64), BUN (24), K (3.3), Na (135), Mg (1.2), TG (184) Meds Noted: Precedex, Fentanyl, Novolog, Lantus, Vancomycin, Solu Medrol, Versed, Protonix, Miralax Additional Notes: s/p magnesium sulfate and potassium chloride replacement. Right wrist with skin tear. Left knee with scab. Following daily in ICU rounds. Assessing/reassessing every 3 days.
[2020-01-25] MEDS: DEXTROSE 5%/LACTATED RINGERS 1,000 ML 50 ML IV CONT (12:15)
--- NOTE | 2020-01-25 12:48 | WPDINTPN ---
Progress Note: A&P Assessment and Plan (1) Acute respiratory failure: Qualifiers: Respiratory failure complication: hypoxia and hypercapnia Qualified Code(s): J96.01 - Acute respiratory failure with hypoxia; J96.02 - Acute respiratory failure with hypercapnia Code(s): J96.00 - Acute respiratory failure, unspecified whether with hypoxia or hypercapnia Status: Acute Assessment and Plan: patient initially presented with cough, fevers, altered mental status. Chest x-ray showed pulmonary edema/pneumonia. Lymphopenia, elevated CRP, normal LDH, leukocytosis. Requiring intubation on 01/15/2020 - successfully extubated on - COVID-19 PCR Negative. isolation was discontinued on 01/17/2020. Patient does not have lymphopenia, procalcitonin <0.10, normal LDH level, CRP 3.8 - Acute respiratory failure is multifactorial secondary to COPD, CHF and community-acquired pneumonia - weaning Precedex infusion at this time - continue Vancomycin, Imipenem. which was started on 01/21/2020 - Appreciate pulmonology evaluation and recommendation - continue Pulmozyme (2) Septic shock: Code(s): A41.9 - Sepsis, unspecified organism; R65.21 - Severe sepsis with septic shock Status: Acute Assessment and Plan: RESOLVED: Patient presented with hypotension, tachycardia, leukocytosis, elevated lactic acid, acute kidney injury, requiring Levophed briefly. - preliminary blood culture negative x2 - patient on prednisone at home,placed on Solu-Medrol here as inpatient. Now on daily solu-medrol - leukocytosis worsening - sputum cultures 01/21/2020 growing Staph aureus, sensitivities pending - blood and urine cultures from 01/22/2020 pending - CT scan of the chest, abdomen and pelvis on 01/21/2020 showed multi segmental right lower lobe air space disease, small to moderate right small pleural effusion (3) Altered mental status: Qualifiers: Altered mental status type: unspecified Qualified Code(s): R41.82 - Altered mental status, unspecified Code(s): R41.82 - Altered mental status, unspecified Status: Acute Assessment and Plan: RESOLVED: - head CT on presentation showed chronic infarcts. - patient is following commands (4) Pneumonia: Qualifiers: Laterality: unspecified laterality Lung location: unspecified part of lung Pneumonia type: due to unspecified organism Qualified Code(s): J18.9 - Pneumonia, unspecified organism Code(s): J18.9 - Pneumonia, unspecified organism Status: Acute Assessment and Plan: chest x-ray shows pulmonary edema versus pneumonia, MRSA in sputum - on vancomycin - patient on antibiotics as above - Pulmozyme added - (5) Acute kidney injury: Code(s): N17.9 - Acute kidney failure, unspecified Status: Acute Assessment and Plan: RESOLVED; patient presented with acute kidney injury, no known history of of kidney disease ( last known creatinine was 0.8 on 12/04/2019) - creatinine remains normal - will replace potassium and magnesium - continue to monitor urine output, renal function electrolytes (6) Elevated troponin: Code(s): R79.89 - Other specified abnormal findings of blood chemistry Status: Acute Assessment and Plan: elevated troponin, 0.538. 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
[2020-01-25 12:59] LABS: Glucose Point of Care 125 (65-105)
[2020-01-25 13:52] LABS: Vancomycin Trough 13.2 ug/mL (10.0-20.0)
--- NOTE | 2020-01-25 14:39 | PM.PNPUL ---
Progress Note: A&P Assessment and Plan (1) Nosocomial pneumonia: Code(s): J18.9 - Pneumonia, unspecified organism; Y95 - Nosocomial condition Status: Acute Assessment and Plan: - Antibiotic coverage changed 01/21/2020 to imipenem and Vancomycin, today is day #3. Stopped Ceftriaxone. Still getting azithromycin. Extubated, doing well on 6 L/min. Wean O2 to avoid hyperoxia. - sputum culture resent - - blood, urine and sputum. Sputum is growing Staph aurues (2) Delirium: Code(s): R41.0 - Disorientation, unspecified Status: Acute Assessment and Plan: Due to acute illness. Subjective Date/time seen: 01/25/20 14:39 Interval history: This 59 yo man is seen in follow up for nosocomial pneumonia, acute respiratory failure. 01/23 Extubated. Was delerious. WBC is stable, 31. Has high WBC at baseline due to myelodysplastic disorder. CXR today is stable. Review of Systems Review of Systems: All systems reviewed & are unremarkable except as noted in HPI and below ROS unobtainable: Yes unobtainable due to endotracheal tube Exam Const: General: no acute distress HENMT: Mouth: Yes moist mucous membranes Eyes: Other: conjuctivitis is present Neck: Neck: supple and no JVD Resp: Auscultation: no crackles, no rales, no rhonchi, no wheezes and diminished lung sounds (overall clear exam) Cardio: Rate: regular rate Rhythm: regular rhythm Heart sounds: no murmurs GI: Auscultation: normal bowel sounds Skin: General skin exam: normal color and no rashes or lesions noted Extrem: General: normal to inspection, no edema and no pedal edema Objective Data Vital Signs Vital Signs: Vital Signs - 24 hr 01/24/20 16:00 01/24/20 18:00 01/24/20 18:19 Temperature 37.2 C 37.2 C Pulse Rate 84 91 100 Respiratory Rate 19 20 20 Blood Pressure 114/72 104/73 Pulse Oximetry 95 98 96 01/24/20 19:46 01/24/20 19:53 01/24/20 20:00 Temperature 37.1 C Pulse Rate 84 82 91 Respiratory Rate 20 17 25 H Blood Pressure 154/75 H Pulse Oximetry 99 01/24/20 22:00 01/25/20 00:00 01/25/20 02:00 Temperature 36.9 C Pulse Rate 77 67 67 Respiratory Rate 15 31 H 19 Blood Pressure 142/62 H 140/61 130/66 Pulse Oximetry 99 96 96 01/25/20 04:00 01/25/20 06:00 01/25/20 08:00 Temperature 36.9 C 36.4 C L Pulse Rate 68 61 68 Respiratory Rate 27 H 21 H 17 Blood Pressure 138/61 125/59 L 163/76 H Pulse Oximetry 96 98 94 01/25/20 10:00 01/25/20 10:09 01/25/20 12:00 Temperature 37.1 C Pulse Rate 71 68 71 Respiratory Rate 16 20 Blood Pressure 148/76 H Pulse Oximetry 97 Intake/Output Intake/Output: Intake & Output 01/22/20 01/23/20 01/24/20 01/25/20 23:59 23:59 23:59 23:59 Intake Total 3359.3 2889.7 2755 1000 Output Total 3725 2250 4225 1400 Balance -365.7 639.7 -1470 -400 Meds/Results Medications: Active Medications Generic Name Dose Route Start Last Admin Trade Name Freq PRN Reason Stop Dose Admin Artificial Tears 1 drop 01/24/20 18:08 01/24/20 20:44 Artificial Tears EACH EYE 1 drop QID PRN Administration Dry Eye(s) Bisacodyl 10 mg 01/25/20 10:48 Dulcolax Suppository RECTAL QAM PRN Constipation Dextrose 12.5 gm 01/25/20 04:51 01/25/20 05:04 Dextrose 50% Syringe IV PUSH 12.5 gm PRN PRN Administration Hypoglycemia Protocol Dornase Vahe 2.5 mg 01/21/20 08:02 01/25/20 10:08 Pulmozyme INHALATION 2.5 mg Q12HRT CINDI Administration Glucagon 1 mg 01/25/20 04:51 Glucagon For Inj IM PRN PRN Hypoglycemia Protocol Glucose 15 gm 01/25/20 04:51 Glutose 15 PO PRN PRN Hypoglycemia Protocol Heparin Sodium (Porcine) 5,000 units 01/15/20 21:00 01/25/20 09:15 Heparin Sodium SUB-Q 5,000 units Q12HR CINDI Administration Imipenem/Cil
--- NOTE | 2020-01-25 17:02 | PM.IMPN ---
Progress Note: A&P Assessment and Plan (1) Acute respiratory failure: Qualifiers: Respiratory failure complication: hypoxia and hypercapnia Qualified Code(s): J96.01 - Acute respiratory failure with hypoxia; J96.02 - Acute respiratory failure with hypercapnia Code(s): J96.00 - Acute respiratory failure, unspecified whether with hypoxia or hypercapnia Status: Acute Assessment and Plan: Thought on the basis of pneumonia COPD and possible diastolic heart failure. Extubated 01/23 and doing well (2) Sepsis: Code(s): A41.9 - Sepsis, unspecified organism Status: Acute Assessment and Plan: Secondary to pneumonia. Briefly on pressors but pressure adequate now. White count still elevated but did receive steroids also (3) Pneumonia: Qualifiers: Laterality: unspecified laterality Lung location: unspecified part of lung Pneumonia type: due to unspecified organism Qualified Code(s): J18.9 - Pneumonia, unspecified organism Code(s): J18.9 - Pneumonia, unspecified organism Status: Acute Assessment and Plan: Primarily RL lobe infiltrate. Sputum grew MRSA and remaining on vancomycin with imipenem and azithromyocin (4) Acute kidney injury: Code(s): N17.9 - Acute kidney failure, unspecified Status: Acute Assessment and Plan: Creatinine had been 2.2 but now has fallen to 0.8 (5) Elevated troponin: Code(s): R79.89 - Other specified abnormal findings of blood chemistry Status: Acute Assessment and Plan: Flat response and thought secondary to hypoxia and respiratory failure with no acute coronary syndrome (6) Altered mental status: Qualifiers: Altered mental status type: unspecified Qualified Code(s): R41.82 - Altered mental status, unspecified Code(s): R41.82 - Altered mental status, unspecified Status: Acute Assessment and Plan: Thought secondary to hypercapnia and toxic metabolic encephalopathy which has resolved (7) Diabetes mellitus with hyperglycemia: Qualifiers: Diabetes mellitus type: type 2 Diabetes mellitus group home insulin use: with manager terminal use Qualified Code(s): E11.65 - Type 2 diabetes mellitus with hyperglycemia; 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 Lantus which has been held with low BS today and continue sliding scale. Hemoglobin A1c 8.3 and suspect stress underlying infection along with steroids have raised sugar initially (8) DVT prophylaxis: Code(s): Z29.9 - Encounter for prophylactic measures, unspecified Status: Acute Assessment and Plan: Subcu heparin Subjective Date/time seen: 01/25/20 17:03 Interval history: Date of visit 01/24. 59-year-old type 2 diabetic admitted with sepsis secondary to pneumonia with respiratory failure. Intubated and mechanically ventilated with IV antibiotics and has slowly improved. Extubated 01/23. Alert and talking this am Exam Narrative: Exam Narrative: Blood pressure 164/76 pulse is 68 and regular saturating 94% on RAafebrile Pupils equal reactive to light sclera anicteric Mouth normal Lungs appear clear a cannot hear any definite infiltrates CV regular rate rhythm no murmurs Abdomen soft nontender Extremities without edema distal pulses are 2+ Neuro moves all extremities well, alert Objective Data Vital Signs Vital Signs: Vital Signs - 24 hr 01/24/20 18:00 01/24/20 18:19 01/24/20 19:46 Temperature 37.2 C Pulse Rate 91 100 84 Respiratory Rate 20 20 20 Blood Pressure 104/73 Pulse Oximetry 98 96 01/24/20 19:53 01/24/20 20:00 01/24/20 22:00 Temperature 37.1 C Pulse Rate 82 91 77 Respiratory Rate 17 25 H 15 Blood Pressure 154/75 H 142/62 H Pulse Oximetry 99 99 01/25/20 00:00 01/25/20 02:00 01/25/20 04:00 Temperature 36.9 C 36.9 C Pulse Rate 67
[2020-01-25] MEDS: NEOMYCIN/POLYMYXIN/BACITRACIN OINTMENT PACKET 1 PACKET (17:52)
[2020-01-25] MEDS: INSULIN ASPART (*BKC) 100 UNITS/ML SUB-Q (18:04)
[2020-01-25 18:08] LABS: Glucose Point of Care 264 (65-105)
--- NOTE | 2020-01-25 19:48 | PC.NURSE ---
This patient, Jeremías Gaines, was transferred to [ ] on 01/25/20 at 1948. Personal belongings sent with patient. Belongings list checked and signed with receiving [ ]. Report given to [ ]. Appropriate documentation sent with patient.
--- NOTE | 2020-01-25 19:50 | PC.NURSE ---
This patient, Jeremías Gaines, was transferred to [facility] on 01/25/20 at 1935. Personal belongings sent with patient. Belongings list checked and signed with receiving . Report given to MAXIMILIANO. Appropriate documentation sent with patient.
[2020-01-26] VITALS (19 sets, daily range): BP systolic 137–151; BP diastolic 64–79; PULSE 61–122; RESP 16–32; TEMP 36–36.9; O2SAT 95–98
[2020-01-26 01:36] LABS: Glucose Point of Care 193 (65-105)
[2020-01-26 04:56] LABS: Basophils Absolute Auto 0.1 K/mm3 (0.0-0.1); Basophils Percent Auto 0.4 % (0.2-1.2); Eosinophils Absolute Auto 0.1 K/mm3 (0-0.3); Eosinophils Percent Auto 0.4 % (0-4.4); Hematocrit 48.9 % (42.0-52.0); Hemoglobin 17.1 g/dL (14.0-18.0); Immature Granulocyte Absolute 0.86 K/mm3 (0.00-0.031); Immature Granulocyte Percent A 2.7 % (0-0.5); Lymphocytes Absolute Auto 4.93 K/mm3 (0.9-3.2); Lymphocytes Percent Auto 15.4 % (18.3-44.2); Mean Corpuscular Hemoglobin 30.8 pg (26-34); Mean Corpuscular Volume 87.9 fl (80-100); Mean Platelet Volume 11.1 fl (7.4-10.4); Monocytes Absolute Auto 2.9 K/mm3 (0.1-0.6); Monocytes Percent Auto 9.1 % (2.6-8.5); Nucleated Red Blood Cells Perc 0.1 % (0.0-0.2); Platelet Count Result 697 k/mm3 (150-375); Red Blood Count 5.56 M/mm3 (4.6-6.20); Red Cell Distribution Width 15.2 % (11.5-14.5)
[2020-01-26 05:13] LABS: Blood Urea Nitrogen 24 mg/dL (9-20); Calcium 10.2 mg/dL (8.4-10.2); Carbon Dioxide 28 mmol/L (22-30); Chloride 103 mmol/L (98-107); Estimated CRCL calculation 92 ml/min; Estimated Glomerular Filt Rate > 60; Glucose 205 mg/dL (75-110); Potassium 3.5 mmol/L (3.4-5.0); Sodium 136 mmol/L (137-145)
[2020-01-26] MEDS: INSULIN ASPART (*BKC) 100 UNITS/ML SUB-Q ×4 (05:59→23:43)
[2020-01-26] MEDS: HEPARIN SODIUM 5,000 UNITS/ML VIAL 5000 UNITS SUB-Q ×2 (08:02→22:42)
[2020-01-26] MEDS: methylPREDNISolone SOD SUCC 40 MG VIAL IV PUSH (08:03)
[2020-01-26] MEDS: PANTOPRAZOLE SODIUM IV 40 MG VIAL IV PUSH (08:03)
[2020-01-26] MEDS: DORNASE ALFA INH SOLN 1 MG/ML 2.5 ML AMP 2.5 MG INHALATION ×2 (08:24→19:26)
[2020-01-26 12:02] LABS: Glucose Point of Care 341 (65-105)
--- NOTE | 2020-01-26 14:21 | PCDIET ---
Nutrition Follow-Up Complete: Nutrition Diagnosis: Inadequate oral intake related to oral intubation as evidenced by NPO status. Nutrition Goal: Patient to meet estimated nutritional needs. Goal not met. Patient remains NPO. Recommend enteral feedings if unable to safely advance diet in the next 24-48 hours. Glucerna 1.2 at goal of 65mL/hr x 22 hours/day would provide 1716kcal, 86g protein and 1151mL free water. Patient may also benefit from long acting insulin. Last recorded weight is 88.6 kg which is decreased. -I/O. Bowel Motility: +BM on 01/25/20. Labs Reviewed: Glu (341), BUN (24), Na (136) Meds Noted: Miralax, Novolog, Solu Medrol, Protonix, Vancomycin Additional Notes: Right wrist with skin tear; left knee scab. No documented pressure ulcers. Will continue to monitor with same goal. Nutrition Monitoring and Evaluation: Follow up every 3 days.
--- NOTE | 2020-01-26 15:48 | PM.IMPN ---
Progress Note: A&P Assessment and Plan (1) Acute respiratory failure: Qualifiers: Respiratory failure complication: hypoxia and hypercapnia Qualified Code(s): J96.01 - Acute respiratory failure with hypoxia; J96.02 - Acute respiratory failure with hypercapnia Code(s): J96.00 - Acute respiratory failure, unspecified whether with hypoxia or hypercapnia Status: Acute Assessment and Plan: Thought on the basis of pneumonia COPD and possible diastolic heart failure. Extubated 01/23 and doing well (2) Sepsis: Code(s): A41.9 - Sepsis, unspecified organism Status: Acute Assessment and Plan: Secondary to pneumonia. Briefly on pressors but pressure adequate now. White count still elevated but did receive steroids also WBC apparently mild chronic elevation (3) Pneumonia: Qualifiers: Laterality: unspecified laterality Lung location: unspecified part of lung Pneumonia type: due to unspecified organism Qualified Code(s): J18.9 - Pneumonia, unspecified organism Code(s): J18.9 - Pneumonia, unspecified organism Status: Acute Assessment and Plan: Primarily RL lobe infiltrate. Sputum grew MRSA and remaining on vancomycind#6 with imipenem d#6 (4) Acute kidney injury: Code(s): N17.9 - Acute kidney failure, unspecified Status: Acute Assessment and Plan: Creatinine had been 2.2 but now has fallen to 0.8 (5) Elevated troponin: Code(s): R79.89 - Other specified abnormal findings of blood chemistry Status: Acute Assessment and Plan: Flat response and thought secondary to hypoxia and respiratory failure with no acute coronary syndrome (6) Altered mental status: Qualifiers: Altered mental status type: unspecified Qualified Code(s): R41.82 - Altered mental status, unspecified Code(s): R41.82 - Altered mental status, unspecified Status: Acute Assessment and Plan: Thought secondary to hypercapnia and toxic metabolic encephalopathy which has resolved for most part (7) Diabetes mellitus with hyperglycemia: Qualifiers: Diabetes mellitus type: type 2 Diabetes mellitus alf insulin use: with oysterman use Qualified Code(s): E11.65 - Type 2 diabetes mellitus with hyperglycemia; Z79.4 - intermodal truck driver (current) use of insulin Code(s): E11.65 - Type 2 diabetes mellitus with hyperglycemia Status: Acute Assessment and Plan: On b.i.d. Earl which has been held with low BS 01/24 and continue sliding scale. Hemoglobin A1c 8.3 and suspect stress underlying infection along with steroids have raised sugar initially will give lower dose of lantus (8) DVT prophylaxis: Code(s): Z29.9 - Encounter for prophylactic measures, unspecified Status: Acute Assessment and Plan: Subcu heparin Subjective Date/time seen: 01/26/20 15:48 Interval history: Date of visit 01/25. 59-year-old type 2 diabetic admitted with sepsis secondary to pneumonia with respiratory failure. Intubated and mechanically ventilated with IV antibiotics and has slowly improved. Extubated 01/23. Alert and talking this am but still confused, voice raspy Exam Narrative: Exam Narrative: Blood pressure 146/66 pulse is 96 and regular saturating 94% on RA afebrile Pupils equal reactive to light sclera anicteric Mouth normal Lungs appear clear a cannot hear any definite infiltrates CV regular rate rhythm no murmurs Abdomen soft nontender Extremities without edema distal pulses are 2+ Neuro moves all extremities well, alert Objective Data Vital Signs Vital Signs: Vital Signs - 24 hr 01/25/20 16:00 01/25/20 18:00 01/25/20 20:00 Temperature 37.6 C 36.6 C Pulse Rate 112 H 119 H 126 H Respiratory Rate 18 24 H 22 H Blood Pressure 132/68 157/83 H 152/67 H Pulse Oximetry 100 95 95 01/25/20 21:13 01/25/20 21:22 01/25/20 21:23 Temperature Pulse Rate 125 H 130 H 124 H Respiratory Rate 22 H 22 H Bloo
[2020-01-26 18:41] LABS: Glucose Point of Care 295 (65-105)
--- NOTE | 2020-01-26 18:41 | PM.PNPUL ---
Progress Note: A&P Assessment and Plan (1) Nosocomial pneumonia: Code(s): J18.9 - Pneumonia, unspecified organism; Y95 - Nosocomial condition Status: Acute Assessment and Plan: - Antibiotic coverage changed 01/21/2020 to imipenem and Vancomycin, today is day #3. Stopped Ceftriaxone. Still getting azithromycin. Extubated, doing well on RA. Wean O2 to avoid hyperoxia. - sputum culture resent - - blood, urine and sputum. Sputum is growing Staph aurues (2) Delirium: Code(s): R41.0 - Disorientation, unspecified Status: Acute Assessment and Plan: Due to acute illness. Improving Subjective Date/time seen: 01/26/20 18:41 Now moved to Room 205, on room air, has a sitter, wnats to go home to girlfriend Humaira. He says he is in [place], know his name, age and says the month is Wednesday. Whisper voice. Review of Systems Review of Systems: All systems reviewed & are unremarkable except as noted in HPI and below Exam Const: General: no acute distress HENMT: Mouth: Yes moist mucous membranes Neck: Neck: supple and no JVD Resp: Auscultation: no crackles, no rales, no rhonchi, no wheezes and diminished lung sounds (overall clear exam) Cardio: Rate: regular rate Rhythm: regular rhythm Heart sounds: no murmurs GI: Auscultation: normal bowel sounds Skin: General skin exam: normal color and no rashes or lesions noted Extrem: General: normal to inspection, no edema and no pedal edema Objective Data Vital Signs Vital Signs: Vital Signs - 24 hr 01/25/20 20:00 01/25/20 21:13 01/25/20 21:22 Temperature 36.6 C Pulse Rate 126 H 125 H 130 H Respiratory Rate 22 H 22 H Blood Pressure 152/67 H Pulse Oximetry 95 98 01/25/20 21:23 01/26/20 00:00 01/26/20 02:00 Temperature 36.6 C Pulse Rate 124 H 122 H 120 H Respiratory Rate 22 H 22 H Blood Pressure 140/79 Pulse Oximetry 96 01/26/20 04:00 01/26/20 06:00 01/26/20 07:56 Temperature 36.1 C L 36.2 C L Pulse Rate 120 H 118 H 61 Respiratory Rate 22 H 20 Blood Pressure 143/74 H 137/66 Pulse Oximetry 98 95 01/26/20 08:00 01/26/20 08:20 01/26/20 08:30 Temperature Pulse Rate 119 H 117 H 117 H Respiratory Rate 20 20 Blood Pressure Pulse Oximetry 96 01/26/20 10:00 01/26/20 12:00 01/26/20 14:00 Temperature 36.0 C L Pulse Rate 112 H 115 H 117 H Respiratory Rate 16 Blood Pressure 147/67 H Pulse Oximetry 95 01/26/20 16:00 Temperature 36.5 C Pulse Rate 122 H Respiratory Rate 32 H Blood Pressure 151/64 H Pulse Oximetry 95 Intake/Output Intake/Output: Intake & Output 01/23/20 01/24/20 01/25/20 01/26/20 23:59 23:59 23:59 23:59 Intake Total 2889.7 2755 1836 800 Output Total 2250 4225 2950 1400 Balance 639.7 -1470 -1114 -600 Meds/Results Medications: Active Medications Generic Name Dose Route Start Last Admin Trade Name Freq PRN Reason Stop Dose Admin Artificial Tears 1 drop 01/24/20 18:08 01/24/20 20:44 Artificial Tears EACH EYE 1 drop QID PRN Administration Dry Eye(s) Bisacodyl 10 mg 01/25/20 10:48 Dulcolax Suppository RECTAL QAM PRN Constipation Dextrose 12.5 gm 01/25/20 04:51 01/25/20 05:04 Dextrose 50% Syringe IV PUSH 12.5 gm PRN PRN Administration Hypoglycemia Protocol Dornase Vahe 2.5 mg 01/21/20 08:02 01/26/20 08:24 Pulmozyme INHALATION 2.5 mg Q12HRT CINDI Administration Glucagon 1 mg 01/25/20 04:51 Glucagon For Inj IM PRN PRN Hypoglycemia Protocol Glucose 15 gm 01/25/20 04:51 Glutose 15 PO PRN PRN Hypoglycemia Protocol Heparin Sodium (Porcine) 5,000 units 01/15/20 21:00 01/26/20 08:02 Heparin Sodium SUB-Q 5,000 units Q12HR CINDI Administration Imipenem/Cilastatin Sodium 500 mg in 100 mls @ 300 mls/hr 01/22/20 08
[2020-01-26] MEDS: INSULIN GLARGINE (*BKC) 100 UNITS/ML 20 UNITS SUB-Q (22:43)
--- NOTE | 2020-01-26 23:10 | PC.NURSE ---
This patient, Jeremías Gaines, was transferred to [[id number] ] on 01/26/20 at 2312. Personal belongings sent with patient. Belongings list checked and signed with receiving [ ]. Report given to Annj ]. Appropriate documentation sent with patient.
[2020-01-26 23:51] LABS: Glucose Point of Care 245 (65-105)
[2020-01-27] VITALS (7 sets, daily range): BP systolic 133–146; BP diastolic 63–72; PULSE 108–113; RESP 16–20; TEMP 36.2–36.3; O2SAT 92–98
[2020-01-27 05:08] LABS: Basophils Absolute Auto 0.2 K/mm3 (0.0-0.1); Basophils Percent Auto 0.5 % (0.2-1.2); Eosinophils Absolute Auto 0.2 K/mm3 (0-0.3); Eosinophils Percent Auto 0.5 % (0-4.4); Hematocrit 47.2 % (42.0-52.0); Hemoglobin 15.9 g/dL (14.0-18.0); Immature Granulocyte Absolute 0.89 K/mm3 (0.00-0.031); Immature Granulocyte Percent A 2.5 % (0-0.5); Mean Corpuscular HGB Conc 33.7 g/dl (32-36); Mean Corpuscular Hemoglobin 30.3 pg (26-34); Mean Corpuscular Volume 89.9 fl (80-100); Mean Platelet Volume 11.3 fl (7.4-10.4); Monocytes Percent Auto 8.5 % (2.6-8.5); Neutrophils Absolute Auto 25.2 K/mm3 (1.3-6.7); Platelet Count Result 691 k/mm3 (150-375); Red Blood Count 5.25 M/mm3 (4.6-6.20); Red Cell Distribution Width 15.5 % (11.5-14.5)
[2020-01-27 05:36] LABS: Albumin Level 3.6 g/dL (3.5-5.1); Blood Urea Nitrogen 23 mg/dL (9-20); Calcium 10.1 mg/dL (8.4-10.2); Carbon Dioxide 26 mmol/L (22-30); Chloride 104 mmol/L (98-107); Estimated CRCL calculation 82 ml/min; Estimated Glomerular Filt Rate > 60; Glucose 316 mg/dL (75-110); Magnesium 1.3 mg/dL (1.6-2.3); Phosphorus 2.6 mg/dL (2.5-4.5); Potassium 3.9 mmol/L (3.4-5.0); Sodium 135 mmol/L (137-145)
[2020-01-27] MEDS: INSULIN ASPART (*BKC) 100 UNITS/ML SUB-Q ×3 (05:54→17:37)
[2020-01-27 06:04] LABS: Glucose Point of Care 279 (65-105)
[2020-01-27] MEDS: DORNASE ALFA INH SOLN 1 MG/ML 2.5 ML AMP 2.5 MG INHALATION ×2 (07:57→20:16)
[2020-01-27] MEDS: MAGNESIUM SULF 2 GM/WATER 50ML 2 GM/50 ML BAG IVPB (08:46)
[2020-01-27] MEDS: HEPARIN SODIUM 5,000 UNITS/ML VIAL 5000 UNITS SUB-Q ×2 (08:46→20:27)
[2020-01-27] MEDS: PANTOPRAZOLE SODIUM IV 40 MG VIAL IV PUSH (08:46)
[2020-01-27] MEDS: methylPREDNISolone SOD SUCC 40 MG VIAL IV PUSH (08:46)
[2020-01-27] MEDS: SODIUM CHLORIDE 0.9% IV 1,000 ML 75 ML IV CONT (11:14)
[2020-01-27 11:48] LABS: Glucose Point of Care 279 (65-105)
--- NOTE | 2020-01-27 14:44 | PM.IMPN ---
Progress Note: A&P Assessment and Plan (1) Acute respiratory failure: Qualifiers: Respiratory failure complication: hypoxia and hypercapnia Qualified Code(s): J96.01 - Acute respiratory failure with hypoxia; J96.02 - Acute respiratory failure with hypercapnia Code(s): J96.00 - Acute respiratory failure, unspecified whether with hypoxia or hypercapnia Status: Acute Assessment and Plan: Thought on the basis of pneumonia COPD and possible diastolic heart failure. Extubated 01/23 and doing well (2) Sepsis: Code(s): A41.9 - Sepsis, unspecified organism Status: Acute Assessment and Plan: Secondary to pneumonia. Briefly on pressors but pressure adequate now. White count still elevated but did receive steroids also WBC apparently mild chronic elevation (3) Pneumonia: Qualifiers: Laterality: unspecified laterality Lung location: unspecified part of lung Pneumonia type: due to unspecified organism Qualified Code(s): J18.9 - Pneumonia, unspecified organism Code(s): J18.9 - Pneumonia, unspecified organism Status: Acute Assessment and Plan: Primarily RL lobe infiltrate. Sputum grew MRSA and remaining on vancomycind#7 with imipenem d#7 (4) Acute kidney injury: Code(s): N17.9 - Acute kidney failure, unspecified Status: Acute Assessment and Plan: Creatinine had been 2.2 but now has fallen to 0.8 (5) Elevated troponin: Code(s): R79.89 - Other specified abnormal findings of blood chemistry Status: Acute Assessment and Plan: Flat response and thought secondary to hypoxia and respiratory failure with no acute coronary syndrome (6) Altered mental status: Qualifiers: Altered mental status type: unspecified Qualified Code(s): R41.82 - Altered mental status, unspecified Code(s): R41.82 - Altered mental status, unspecified Status: Acute Assessment and Plan: Thought secondary to hypercapnia and toxic metabolic encephalopathy which has resolved for most part but still intermittantly confused at times (7) Diabetes mellitus with hyperglycemia: Qualifiers: Diabetes mellitus type: type 2 Diabetes mellitus terminal worker insulin use: with halfway use Qualified Code(s): E11.65 - Type 2 diabetes mellitus with hyperglycemia; Z79.4 - extermination inspector (current) use of insulin Code(s): E11.65 - Type 2 diabetes mellitus with hyperglycemia Status: Acute Assessment and Plan: On b.i.d. Earl which has been held with low BS 01/24 and continue sliding scale. Hemoglobin A1c 8.3 and suspect stress underlying infection along with steroids have raised sugar initially will give lower dose of lantus , now at 30 U hs with bs still high will increase to 35U (8) DVT prophylaxis: Code(s): Z29.9 - Encounter for prophylactic measures, unspecified Status: Acute Assessment and Plan: Subcu heparin Subjective Date/time seen: 01/27/20 14:44 Interval history: Date of visit 01/26. 59-year-old type 2 diabetic admitted with sepsis secondary to pneumonia with respiratory failure. Intubated and mechanically ventilated with IV antibiotics and has slowly improved. Extubated 01/23. Alert and talking this am but still confused at times, voice raspy Exam Narrative: Exam Narrative: Blood pressure 146/72 pulse is 110 and regular saturating 96% on RA afebrile Pupils equal reactive to light sclera anicteric Mouth normal Lungs appear clear a cannot hear any definite infiltrates CV regular rate rhythm no murmurs Abdomen soft nontender Extremities without edema distal pulses are 2+ Neuro moves all extremities well, alert Objective Data Vital Signs Vital Signs: Vital Signs - 24 hr 01/26/20 16:00 01/26/20 18:00 01/26/20 19:27 Temperature 36.5 C Pulse Rate 122 H 118 H 115 H Respiratory Rate 32 H 20 Blood Pressure 151/64 H Pulse Oximetry 95 01/26/20 19:29 01/26/20 19:35 01/26/20
[2020-01-27 17:43] LABS: Glucose Point of Care 307 (65-105)
--- NOTE | 2020-01-27 18:11 | PM.PNPUL ---
Progress Note: A&P Assessment and Plan (1) Nosocomial pneumonia: Code(s): J18.9 - Pneumonia, unspecified organism; Y95 - Nosocomial condition Status: Acute Assessment and Plan: - Antibiotic coverage changed 01/21/2020 to imipenem and Vancomycin, today is day #3. Stopped Ceftriaxone. Still getting azithromycin. Extubated, doing well on RA. Wean O2 to avoid hyperoxia. - sputum culture resent - - blood, urine and sputum. Sputum is growing Staph aurueus (2) Delirium: Code(s): R41.0 - Disorientation, unspecified Status: Acute Assessment and Plan: Due to acute illness. Improving Subjective Date/time seen: 01/27/20 18:11 Interval history: This 59 yo man is seen in follow up for pneumonia with respiratory failure. Extubated 01/23. Alert and talking, a little less confused. His voice remains raspy. Review of Systems Review of Systems: All systems reviewed & are unremarkable except as noted in HPI and below ROS unobtainable: Yes unobtainable due to endotracheal tube Exam Const: General: no acute distress HENMT: Mouth: Yes moist mucous membranes Eyes: Other: conjuctivitis is present Neck: Neck: supple and no JVD Resp: Auscultation: no crackles, no rales, no rhonchi, no wheezes and diminished lung sounds (overall clear exam) Cardio: Rate: regular rate Rhythm: regular rhythm Heart sounds: no murmurs GI: Auscultation: normal bowel sounds Skin: General skin exam: normal color and no rashes or lesions noted Extrem: General: normal to inspection, no edema and no pedal edema Objective Data Vital Signs Vital Signs: Vital Signs - 24 hr 01/26/20 19:27 01/26/20 19:29 01/26/20 19:35 Temperature Pulse Rate 115 H 113 H Respiratory Rate 20 20 Blood Pressure Pulse Oximetry 96 01/26/20 19:38 01/26/20 20:00 01/26/20 23:44 Temperature 36.9 C 36.7 C Pulse Rate 117 H 112 H 99 Respiratory Rate 22 H 22 H 20 Blood Pressure 142/75 H 146/78 H Pulse Oximetry 96 96 96 01/27/20 07:57 01/27/20 07:58 01/27/20 08:06 Temperature 36.2 C L Pulse Rate 112 H 113 H 108 H Respiratory Rate 20 19 20 Blood Pressure 146/72 H Pulse Oximetry 92 98 01/27/20 14:00 Temperature 36.2 C L Pulse Rate 112 H Respiratory Rate 16 Blood Pressure 136/63 Pulse Oximetry 95 Intake/Output Intake/Output: Intake & Output 01/24/20 01/25/20 01/26/20 01/27/20 23:59 23:59 23:59 23:59 Intake Total 2755 8848 966 4939 Output Total 4222 2950 1675 850 [facility] -1470 -1114 -775 384 Meds/Results Medications: Active Medications Generic Name Dose Route Start Last Admin Trade Name Freq PRN Reason Stop Dose Admin Artificial Tears 1 drop 01/24/20 18:08 01/27/20 17:34 Artificial Tears EACH EYE 1 drop QID PRN Administration Dry Eye(s) Bisacodyl 10 mg 01/25/20 10:48 Dulcolax Suppository RECTAL QAM PRN Constipation Dextrose 12.5 gm 01/25/20 04:51 01/25/20 05:04 Dextrose 50% Syringe IV PUSH 12.5 gm PRN PRN Administration Hypoglycemia Protocol Dornase Vahe 2.5 mg 01/21/20 08:02 01/27/20 07:57 Pulmozyme INHALATION 2.5 mg Q12HRT CINDI Administration Glucagon 1 mg 01/25/20 04:51 Glucagon For Inj IM PRN PRN Hypoglycemia Protocol Glucose 15 gm 01/25/20 04:51 Glutose 15 PO PRN PRN Hypoglycemia Protocol Heparin Sodium (Porcine) 5,000 units 01/15/20 21:00 01/27/20 08:46 Heparin Sodium SUB-Q 5,000 units Q12HR CINDI Administration Imipenem/Cilastatin Sodium 500 mg in 100 mls @ 300 mls/hr 01/22/20 08:00 01/27/20 17:33 Primaxin 500 Mg/D5w 100 Ml IVPB 300 mls/hr Q6HR CINDI Administration Vancomycin HCl 1,500 mg in 500 mls @ 333.333 mls/hr 01/23/20 08:00 01/27/20 03:33 Vancomycin 1,500 Mg/D5w 500 Ml IVPB Infused Q18H CINDI Infusion Dextro
[2020-01-27] MEDS: INSULIN GLARGINE (*BKC) 100 UNITS/ML 35 UNITS SUB-Q (20:31)
[2020-01-27 20:49] LABS: Glucose Point of Care 270 (65-105)
[2020-01-28] MEDS: INSULIN ASPART (*BKC) 100 UNITS/ML SUB-Q ×3 (00:24→16:44)
[2020-01-28 01:40] LABS: Glucose Point of Care 275 (65-105)
[2020-01-28] MEDS: SODIUM CHLORIDE 0.9% IV 1,000 ML 75 ML IV CONT (04:52)
[2020-01-28 05:50] VITALS: BP 126/78; PULSE 104; RESP 18; TEMP 36.1; O2SAT 100
[2020-01-28 06:25] LABS: Glucose Point of Care 193 (65-105)
[2020-01-28 08:14] VITALS: PULSE 101; RESP 20
[2020-01-28] MEDS: DORNASE ALFA INH SOLN 1 MG/ML 2.5 ML AMP 2.5 MG INHALATION ×2 (08:14→19:43)
[2020-01-28 08:20] VITALS: PULSE 101; RESP 20
[2020-01-28] MEDS: PANTOPRAZOLE SODIUM IV 40 MG VIAL IV PUSH (08:32)
[2020-01-28] MEDS: methylPREDNISolone SOD SUCC 40 MG VIAL 20 MG IV PUSH (08:32)
[2020-01-28] MEDS: HEPARIN SODIUM 5,000 UNITS/ML VIAL 5000 UNITS SUB-Q ×2 (08:32→20:22)
[2020-01-28 09:37] LABS: Blood Urea Nitrogen 22 mg/dL (9-20); Calcium 9.7 mg/dL (8.4-10.2); Carbon Dioxide 27 mmol/L (22-30); Chloride 105 mmol/L (98-107); Estimated CRCL calculation 82 ml/min; Estimated Glomerular Filt Rate > 60; Glucose 194 mg/dL (75-110); Magnesium 1.3 mg/dL (1.6-2.3); Phosphorus 2.9 mg/dL (2.5-4.5); Potassium 3.6 mmol/L (3.4-5.0); Sodium 136 mmol/L (137-145)
--- NOTE | 2020-01-28 10:39 | PCSTNOTE ---
Bedside Swallow Evaluation This pt was seen for a repeat bedside swallow evaluation following extubation 4 days ago. During the first evaluation, he exhibited clinical signs of aspiration with thin liquid and has been NPO since that time. The pt was seated upright in bed today and given trials of thin, mildly thick, and extremely thick liquid, puree, and solid food. The pt's voice is hoarse at baseline. Trials of thin liquid resulted in throat clearing, coughing, and gurgly vocal quality. Trials of mildly thick liquid, extremely thick liquid, puree, and solid were WNL. It is recommended that the pt receive an oral diet of regular (7) foods and mildly thick (2) liquids. Position during intake should be upright. The pt should eat with frequent observation due to distractibility. Speech therapy should include laryngeal elevation exercises, effortful swallow exercises, and tongue base retraction exercises.
[2020-01-28] MEDS: MAGNESIUM SULFATE 3GM/D5W100ML 3 GM/100 ML BAG IVPB (11:04)
[2020-01-28 11:57] LABS: Glucose Point of Care 279 (65-105)
[2020-01-28 14:00] VITALS: BP 133/65; PULSE 99; RESP 16; TEMP 36.1; O2SAT 97
--- NOTE | 2020-01-28 14:23 | PCOTNOTE ---
Patient not available x2 this pm due to lunch and nursing care.
--- NOTE | 2020-01-28 16:30 | PM.IMPN ---
Progress Note: A&P Assessment and Plan (1) Acute respiratory failure: Qualifiers: Respiratory failure complication: hypoxia and hypercapnia Qualified Code(s): J96.01 - Acute respiratory failure with hypoxia; J96.02 - Acute respiratory failure with hypercapnia Code(s): J96.00 - Acute respiratory failure, unspecified whether with hypoxia or hypercapnia Status: Acute Assessment and Plan: Thought on the basis of pneumonia COPD and possible diastolic heart failure. Extubated 01/23 and doing well (2) Sepsis: Code(s): A41.9 - Sepsis, unspecified organism Status: Acute Assessment and Plan: Secondary to pneumonia. Briefly on pressors but pressure adequate now. White count still elevated but did receive steroids also WBC apparently mild chronic elevation (3) Pneumonia: Qualifiers: Laterality: unspecified laterality Lung location: unspecified part of lung Pneumonia type: due to unspecified organism Qualified Code(s): J18.9 - Pneumonia, unspecified organism Code(s): J18.9 - Pneumonia, unspecified organism Status: Acute Assessment and Plan: Primarily RL lobe infiltrate. Sputum grew MRSA and remaining on vancomycind#8 with imipenem d#8 (4) Acute kidney injury: Code(s): N17.9 - Acute kidney failure, unspecified Status: Acute Assessment and Plan: Creatinine had been 2.2 but now has fallen to 0.9 today (5) Elevated troponin: Code(s): R79.89 - Other specified abnormal findings of blood chemistry Status: Acute Assessment and Plan: Flat response and thought secondary to hypoxia and respiratory failure with no acute coronary syndrome (6) Altered mental status: Qualifiers: Altered mental status type: unspecified Qualified Code(s): R41.82 - Altered mental status, unspecified Code(s): R41.82 - Altered mental status, unspecified Status: Acute Assessment and Plan: Thought secondary to hypercapnia and toxic metabolic encephalopathy which has resolved for most part but still intermittantly confused at times (7) Diabetes mellitus with hyperglycemia: Qualifiers: Diabetes mellitus type: type 2 Diabetes mellitus jail insulin use: with technician terminal and repeater use Qualified Code(s): E11.65 - Type 2 diabetes mellitus with hyperglycemia; Z79.4 - long term acute care registered nurse (current) use of insulin Code(s): E11.65 - Type 2 diabetes mellitus with hyperglycemia Status: Acute Assessment and Plan: On b.i.d. Lantus which has been held with low BS 01/24 and continue sliding scale. Hemoglobin A1c 8.3 and suspect stress underlying infection along with steroids have raised sugar initially will give lower dose of lantus , now at 30 U hs with bs still high will increase to 35U 01/26 FBS 194 and d/c steroids am 01/28 after dose (8) DVT prophylaxis: Code(s): Z29.9 - Encounter for prophylactic measures, unspecified Status: Acute Assessment and Plan: Subcu heparin Subjective Date/time seen: 01/28/20 16:30 Interval history: Date of visit 01/27. 59-year-old type 2 diabetic admitted with sepsis secondary to pneumonia with respiratory failure. Intubated and mechanically ventilated with IV antibiotics and has slowly improved. Extubated 01/23. Alert and talking this am and less confused, voice raspy passed bedside swallow Exam Narrative: Exam Narrative: Blood pressure 134/64 pulse is 96 and regular saturating 97% on RA afebrile Pupils equal reactive to light sclera anicteric Mouth normal Lungs appear clear CV regular rate rhythm no murmurs Abdomen soft nontender Extremities without edema distal pulses are 2+ Neuro moves all extremities well, alert Objective Data Vital Signs Vital Signs: Vital Signs - 24 hr 01/27/20 20:16 01/27/20 20:24 01/27/20 21:22 Temperature 36.3 C L Pulse Rate 110 H 109 H 112 H Respiratory Rate 20 20 18 Blood Pressure 133/71 Pulse Oximetry 93 97
[2020-01-28 16:49] LABS: Glucose Point of Care 286 (65-105)
--- NOTE | 2020-01-28 18:56 | PM.PNPUL ---
Progress Note: A&P Assessment and Plan (1) Nosocomial pneumonia: Code(s): J18.9 - Pneumonia, unspecified organism; Y95 - Nosocomial condition Status: Acute Assessment and Plan: - Antibiotic coverage changed 01/21/2020 to imipenem and Vancomycin, today is day #7. - Extubated 01/24/2020, doing well on RA. - Sputum is growing Staph aureus methicillin resistant - acute resp failure resolved, CXR improved 01/28/2020 (2) Delirium: Code(s): R41.0 - Disorientation, unspecified Status: Acute Assessment and Plan: Due to acute illness. Improving Subjective Date/time seen: 01/28/20 18:56 This 59 yo man with DM II who was extubated January 23, had PNA, COPD; sepsis, ERIC, altered mental status. More alert and appropriate. He is more alert, processing conversation better, and is appropriate. He wants hand gel. Not in pain. He is less shot of breath, not coughing. Review of Systems Review of Systems: All systems reviewed & are unremarkable except as noted in HPI and below ROS unobtainable: Yes unobtainable due to endotracheal tube Exam Const: General: no acute distress HENMT: Mouth: Yes moist mucous membranes Eyes: Other: conjuctivitis is present Neck: Neck: supple and no JVD Resp: Auscultation: no crackles, no rales, no rhonchi, no wheezes and diminished lung sounds (overall clear exam) Cardio: Rate: regular rate Rhythm: regular rhythm Heart sounds: no murmurs GI: Auscultation: normal bowel sounds Skin: General skin exam: normal color and no rashes or lesions noted Extrem: General: normal to inspection, no edema and no pedal edema Objective Data Vital Signs Vital Signs: Vital Signs - 24 hr 01/27/20 20:16 01/27/20 20:24 01/27/20 21:22 Temperature 36.3 C L Pulse Rate 110 H 109 H 112 H Respiratory Rate 20 20 18 Blood Pressure 133/71 Pulse Oximetry 93 97 01/28/20 05:50 01/28/20 08:14 01/28/20 08:20 Temperature 36.1 C L Pulse Rate 104 H 101 H 101 H Respiratory Rate 18 20 20 Blood Pressure 126/78 Pulse Oximetry 100 01/28/20 14:00 Temperature 36.1 C L Pulse Rate 99 Respiratory Rate 16 Blood Pressure 133/65 Pulse Oximetry 97 Intake/Output Intake/Output: Intake & Output 01/25/20 01/26/20 01/27/20 01/28/20 23:59 23:59 23:59 23:59 Intake Total 9758 391 9510 2357 Output Total 2950 1049 611 850 Balance -9953 -102466 951 1151 Meds/Results Medications: Active Medications Generic Name Dose Route Start Last Admin Trade Name Freq PRN Reason Stop Dose Admin Artificial Tears 1 drop 01/24/20 18:08 01/28/20 15:17 Artificial Tears EACH EYE 1 drop QID PRN Administration Dry Eye(s) Bisacodyl 10 mg 01/25/20 10:48 Dulcolax Suppository RECTAL QAM PRN Constipation Dextrose 12.5 gm 01/25/20 04:51 01/25/20 05:04 Dextrose 50% Syringe IV PUSH 12.5 gm PRN PRN Administration Hypoglycemia Protocol Dornase Vahe 2.5 mg 01/21/20 08:02 01/28/20 08:14 Pulmozyme INHALATION 2.5 mg Q12HRT CINDI Administration Glucagon 1 mg 01/25/20 04:51 Glucagon For Inj IM PRN PRN Hypoglycemia Protocol Glucose 15 gm 01/25/20 04:51 Glutose 15 PO PRN PRN Hypoglycemia Protocol Heparin Sodium (Porcine) 5,000 units 01/15/20 21:00 01/28/20 08:32 Heparin Sodium SUB-Q 5,000 units Q12HR CINDI Administration Imipenem/Cilastatin Sodium 500 mg in 100 mls @ 300 mls/hr 01/22/20 08:00 01/28/20 18:10 Primaxin 500 Mg/D5w 100 Ml IVPB 200 mls/hr Q6HR CINDI Administration Vancomycin HCl 1,500 mg in 500 mls @ 333.333 mls/hr 01/23/20 08:00 01/28/20 18:13 Vancomycin 1,500 Mg/D5w 500 Ml IVPB 0 mls/hr Q18H CINDI Infusion Dextrose 1,000 mls @ 100 mls/hr 01/25/20 04:51 Dextrose 5% 1,000 Ml IVPB PRN PRN Hypoglycemia Protocol
[2020-01-28 19:44] VITALS: PULSE 99; RESP 20
[2020-01-28] MEDS: INSULIN GLARGINE (*BKC) 100 UNITS/ML 35 UNITS SUB-Q (20:22)
[2020-01-28 21:01] LABS: Glucose Point of Care 338 (65-105)
[2020-01-28 22:00] VITALS: BP 131/63; PULSE 100; RESP 16; TEMP 36.6; O2SAT 98
--- NOTE | 2020-01-29 01:35 | PC.NURSE ---
Pt continues his confusion. Pt ripped IV pump off the pole and dislodged his IV fluids. Pt states someone came into the room and did it. Placed a call to Dr Gaffney. Awaiting his call back
[2020-01-29 05:54] VITALS: BP 140/76; PULSE 95; RESP 16; TEMP 36.1; O2SAT 96
[2020-01-29 07:42] LABS: Hematocrit 40.5 % (42.0-52.0); Hemoglobin 14.1 g/dL (14.0-18.0); Mean Corpuscular HGB Conc 34.8 g/dl (32-36); Mean Platelet Volume 10.7 fl (7.4-10.4); Platelet Count Result 661 k/mm3 (150-375); Red Blood Count 4.55 M/mm3 (4.6-6.20); White Blood Count 29.1 K/mm3 (4.5-10.0)
[2020-01-29 08:01] LABS: Blood Urea Nitrogen 17 mg/dL (9-20); Calcium 9.1 mg/dL (8.4-10.2); Carbon Dioxide 21 mmol/L (22-30); Chloride 107 mmol/L (98-107); Estimated CRCL calculation 103 ml/min; Estimated Glomerular Filt Rate > 60; Glucose 103 mg/dL (75-110); Magnesium 1.3 mg/dL (1.6-2.3); Potassium 3.6 mmol/L (3.4-5.0); Sodium 134 mmol/L (137-145)
[2020-01-29] MEDS: DORNASE ALFA INH SOLN 1 MG/ML 2.5 ML AMP 2.5 MG INHALATION (08:26)
[2020-01-29 08:27] VITALS: PULSE 94; RESP 20; O2SAT 94
[2020-01-29] MEDS: methylPREDNISolone SOD SUCC 40 MG VIAL 20 MG IV PUSH (08:28)
[2020-01-29] MEDS: PANTOPRAZOLE SODIUM IV 40 MG VIAL IV PUSH (08:28)
[2020-01-29] MEDS: polyethylene glycoL 3350 17 GM POWD.PACK PO (08:29)
[2020-01-29] MEDS: HEPARIN SODIUM 5,000 UNITS/ML VIAL 5000 UNITS SUB-Q ×2 (08:29→20:41)
[2020-01-29 08:32] LABS: Vancomycin Trough 13.9 ug/mL (10.0-20.0)
[2020-01-29 08:38] VITALS: PULSE 96; RESP 20
[2020-01-29 08:53] LABS: Atypical Lymphocytes Present; Band Neutrophils Percent 1 % (0-6); Lymphocytes Absolute Manual 4.94 K/mm3 (1.1-4.5); Monocytes Absolute Manual 3.49 K/mm3 (0.1-0.90); Monocytes Percent Manual 12 % (3-9); Neutrophils Absolute Manual 20.66 K/mm3 (1.3-6.7); Neutrophils Percent Manual 70 % (46-73); Platelet Estimate Increased (Adequate); Polychromasia 1+ (NORMAL); Stomatocytes 1+ (NORMAL); Total Cells Counted 100
[2020-01-29 10:04] LABS: Glucose Point of Care 104 (65-105)
--- NOTE | 2020-01-29 10:37 | PCPTNOTE ---
Attempted to see patient for PT, however patient refused, reports he is tired of working with therapy. Explained the importance of PT, patient still refused to participate in PT.
--- NOTE | 2020-01-29 11:41 | PCNFU ---
Nutrition Follow-Up Complete: Inadequate oral intake related to oral intubation as evidenced by NPO status. Goal: Patient to meet estimated nutritional needs. Progressing towards goal. Pt current nutrition is DBCC/Mildly Thick, Level 2. Nutrition recommendation:Agree Last recorded weight is 87.5 kg. Bowel Motility:+BM today. Labs Reviewed:Na 134,Mg 1.3 Meds Noted:Lantus, Solu-Medtrol, Miralax,Protonix Additional Notes: Spoke with nursing today for nutrition follow up due to COVID 19 precautions. Confusion noted by nursing. He is refusing some therapies but plans for Speech Eval today. Patient oral intakes are improving today 95% of breakfast-eggs, toast, sausage, coffee, and juice. Monitoring: Follow up every 5 days.
[2020-01-29] MEDS: INSULIN ASPART (*BKC) 100 UNITS/ML SUB-Q ×2 (11:45→17:03)
[2020-01-29 12:14] LABS: Glucose Point of Care 286 (65-105)
--- NOTE | 2020-01-29 13:04 | PCPTNOTE ---
Attempted to see patient for PT, however unable to see patient due to patient being out of room for testing.
[2020-01-29 14:00] VITALS: BP 134/74; PULSE 103; RESP 19; TEMP 36.7; O2SAT 96
--- NOTE | 2020-01-29 14:47 | PCSTNOTE ---
Please refer to the Modified Barium Swallow Evaluation in the EMR.
[2020-01-29 16:35] LABS: Glucose Point of Care 319 (65-105)
[2020-01-29] MEDS: SODIUM CHLORIDE 0.9% IV 1,000 ML 75 ML IV CONT (17:57)
--- NOTE | 2020-01-29 18:25 | PM.IMPN ---
Progress Note: A&P Assessment and Plan (1) Acute respiratory failure: Qualifiers: Respiratory failure complication: hypoxia and hypercapnia Qualified Code(s): J96.01 - Acute respiratory failure with hypoxia; J96.02 - Acute respiratory failure with hypercapnia Code(s): J96.00 - Acute respiratory failure, unspecified whether with hypoxia or hypercapnia Status: Acute Assessment and Plan: Thought on the basis of pneumonia COPD and possible diastolic heart failure. Extubated 01/23 and doing well d/c steroids today (2) Sepsis: Code(s): A41.9 - Sepsis, unspecified organism Status: Acute Assessment and Plan: Secondary to pneumonia. Briefly on pressors but pressure adequate now. White count still elevated but did receive steroids also WBC apparently mild chronic elevation (3) Pneumonia: Qualifiers: Laterality: unspecified laterality Lung location: unspecified part of lung Pneumonia type: due to unspecified organism Qualified Code(s): J18.9 - Pneumonia, unspecified organism Code(s): J18.9 - Pneumonia, unspecified organism Status: Acute Assessment and Plan: Primarily RL lobe infiltrate. Sputum grew MRSA and remaining on vancomycind#06/27 with imipenem d#10 (4) Acute kidney injury: Code(s): N17.9 - Acute kidney failure, unspecified Status: Acute Assessment and Plan: Creatinine had been 2.2 but now has fallen to 0.9 today (5) Elevated troponin: Code(s): R79.89 - Other specified abnormal findings of blood chemistry Status: Acute Assessment and Plan: Flat response and thought secondary to hypoxia and respiratory failure with no acute coronary syndrome (6) Altered mental status: Qualifiers: Altered mental status type: unspecified Qualified Code(s): R41.82 - Altered mental status, unspecified Code(s): R41.82 - Altered mental status, unspecified Status: Acute Assessment and Plan: Thought secondary to hypercapnia and toxic metabolic encephalopathy which has resolved for most part but still intermittantly confused at times (7) Diabetes mellitus with hyperglycemia: Qualifiers: Diabetes mellitus type: type 2 Diabetes mellitus retirement insulin use: with terminologist use Qualified Code(s): E11.65 - Type 2 diabetes mellitus with hyperglycemia; Z79.4 - medical terminologist (current) use of insulin Code(s): E11.65 - Type 2 diabetes mellitus with hyperglycemia Status: Acute Assessment and Plan: On b.i.d. Lantus which has been held with low BS 01/24 and continue sliding scale. Hemoglobin A1c 8.3 and suspect stress underlying infection along with steroids have raised sugar initially will give lower dose of lantus , now at 30 U hs with bs still high will increase to 35U 01/26 FBS 103 and d/c steroids today (8) DVT prophylaxis: Code(s): Z29.9 - Encounter for prophylactic measures, unspecified Status: Acute Assessment and Plan: Subcu heparin Subjective Date/time seen: 01/29/20 18:25 Interval history: Date of visit 01/28. 59-year-old type 2 diabetic admitted with sepsis secondary to pneumonia with respiratory failure. Intubated and mechanically ventilated with IV antibiotics and has slowly improved. Extubated 01/23. Alert and talking this am and but still confused, voice raspy but less so passed modified swallow today Exam Narrative: Exam Narrative: Blood pressure 140/76 pulse is 84 and regular saturating 97% on RA afebrile Pupils equal reactive to light sclera anicteric Mouth normal Lungs appear clear CV regular rate rhythm no murmurs Abdomen soft nontender Extremities without edema distal pulses are 2+ Neuro moves all extremities well, alert but confused Objective Data Vital Signs Vital Signs: Vital Signs - 24 hr 01/28/20 19:44 01/28/20 22:00 01/29/20 05:54 Temperature 36.6 C 36.1 C L Pulse Rate 99 100 95 Respiratory Rate 20 16 16 Blood Pres
--- NOTE | 2020-01-29 18:49 | PM.PNPUL ---
Progress Note: A&P Assessment and Plan (1) Nosocomial pneumonia: Code(s): J18.9 - Pneumonia, unspecified organism; Y95 - Nosocomial condition Status: Acute Assessment and Plan: - Antibiotic coverage changed 01/21/2020 to imipenem and Vancomycin, today is day #7. - Extubated 01/24/2020, doing well on room air. - Sputum is growing Staph aureus methicillin resistant - acute resp failure resolved, CXR improved 01/28/2020 (2) Delirium: Code(s): R41.0 - Disorientation, unspecified Status: Acute Assessment and Plan: Due to acute illness. Improving Subjective Date/time seen: 01/29/20 18:49 Interval history: This 59 yo man is seen in follow up for pneumonia with respiratory failure. Extubated 01/23. Alert and talking, a little less confused. His voice is less raspy. He is making mildly inappropriate comments. Though is better organized to day. Still has some thought processes that are not quite back to normal. Review of Systems Review of Systems: All systems reviewed & are unremarkable except as noted in HPI and below Exam Const: General: no acute distress HENMT: Mouth: Yes moist mucous membranes Eyes: General: appearance normal, both eyes and all related structures Neck: Neck: supple and no JVD Resp: Auscultation: no crackles, no rales, no rhonchi, no wheezes and diminished lung sounds (overall clear exam) Cardio: Rate: regular rate Rhythm: regular rhythm Heart sounds: no murmurs GI: Auscultation: normal bowel sounds Skin: General skin exam: normal color and no rashes or lesions noted Extrem: General: normal to inspection, no edema and no pedal edema Objective Data Vital Signs Vital Signs: Vital Signs - 24 hr 01/28/20 19:44 01/28/20 22:00 01/29/20 05:54 Temperature 36.6 C 36.1 C L Pulse Rate 99 100 95 Respiratory Rate 20 16 16 Blood Pressure 131/63 140/76 Pulse Oximetry 98 96 01/29/20 08:27 01/29/20 08:38 01/29/20 14:00 Temperature 36.7 C Pulse Rate 94 96 103 H Respiratory Rate 20 20 19 Blood Pressure 134/74 Pulse Oximetry 94 96 Intake/Output Intake/Output: Intake & Output 01/26/20 01/27/20 01/28/20 01/29/20 23:59 23:59 23:59 23:59 Intake Total 900 1834 8687 2660 Output Total 6877 625 8731 Balance -936 233 2593 2660 Meds/Results Medications: Active Medications Generic Name Dose Route Start Last Admin Trade Name Freq PRN Reason Stop Dose Admin Artificial Tears 1 drop 01/24/20 18:08 01/28/20 15:17 Artificial Tears EACH EYE 1 drop QID PRN Administration Dry Eye(s) Bisacodyl 10 mg 01/25/20 10:48 Dulcolax Suppository RECTAL QAM PRN Constipation Dextrose 12.5 gm 01/25/20 04:51 01/25/20 05:04 Dextrose 50% Syringe IV PUSH 12.5 gm PRN PRN Administration Hypoglycemia Protocol Dornase Vahe 2.5 mg 01/21/20 08:02 01/29/20 08:26 Pulmozyme INHALATION 2.5 mg Q12HRT CINDI Administration Glucagon 1 mg 01/25/20 04:51 Glucagon For Inj IM PRN PRN Hypoglycemia Protocol Glucose 15 gm 01/25/20 04:51 Glutose 15 PO PRN PRN Hypoglycemia Protocol Heparin Sodium (Porcine) 5,000 units 01/15/20 21:00 01/29/20 08:29 Heparin Sodium SUB-Q 5,000 units Q12HR CINDI Administration Imipenem/Cilastatin Sodium 500 mg in 100 mls @ 300 mls/hr 01/22/20 08:00 01/29/20 18:38 Primaxin 500 Mg/D5w 100 Ml IVPB Infused Q6HR CINDI Infusion Vancomycin HCl 1,500 mg in 500 mls @ 333.333 mls/hr 01/23/20 08:00 01/29/20 14:34 Vancomycin 1,500 Mg/D5w 500 Ml IVPB Infused Q18H CINDI Infusion Dextrose 1,000 mls @ 100 mls/hr 01/25/20 04:51 Dextrose 5% 1,000 Ml IVPB PRN PRN Hypoglycemia Protocol Sodium Chloride 1,000 mls @ 75 mls/hr 01/27/20 10:55 01/29/20 17:57 Normal Saline Iv IV CONT 75 mls/hr
[2020-01-29] MEDS: LORAZEPAM INJ 2 MG/ML VIAL 0.5 MG IV PUSH (20:41)
[2020-01-29] MEDS: INSULIN GLARGINE (*BKC) 100 UNITS/ML 35 UNITS SUB-Q (20:42)
[2020-01-29 21:13] LABS: Glucose Point of Care 231 (65-105)
[2020-01-29 22:00] VITALS: BP 119/85; PULSE 96; RESP 20; TEMP 36.4; O2SAT 97
[2020-01-30] VITALS (7 sets, daily range): BP systolic 130–145; BP diastolic 65–73; PULSE 97–111; RESP 18–22; TEMP 36.3–36.9; O2SAT 94–100
[2020-01-30 04:57] LABS: Hematocrit 42.3 % (42.0-52.0); Mean Corpuscular HGB Conc 33.1 g/dl (32-36); Mean Corpuscular Hemoglobin 30.4 pg (26-34); Mean Corpuscular Volume 91.8 fl (80-100); Mean Platelet Volume 11.2 fl (7.4-10.4); Platelet Count Result 641 k/mm3 (150-375); Red Blood Count 4.61 M/mm3 (4.6-6.20); Red Cell Distribution Width 15.5 % (11.5-14.5); White Blood Count 27.3 K/mm3 (4.5-10.0)
[2020-01-30 05:15] LABS: Potassium 3.4 mmol/L (3.4-5.0)
[2020-01-30 05:53] LABS: Blood Urea Nitrogen 14 mg/dL (9-20); Calcium 9.4 mg/dL (8.4-10.2); Carbon Dioxide 27 mmol/L (22-30); Chloride 105 mmol/L (98-107); Estimated CRCL calculation 103 ml/min; Estimated Glomerular Filt Rate > 60; Glucose 97 mg/dL (75-110); Sodium 136 mmol/L (137-145)
[2020-01-30 06:19] LABS: Eosinophils Absolute Manual 0.81 K/mm3 (0.02-0.5); Eosinophils Percent Manual 3 % (0-4); Lymphocytes Absolute Manual 8.46 K/mm3 (1.1-4.5); Metamyelocytes Percent 1 %; Monocytes Absolute Manual 1.91 K/mm3 (0.1-0.90); Monocytes Percent Manual 7 % (3-9); Neutrophils Percent Manual 58 % (46-73); Total Cells Counted 100
[2020-01-30 06:20] LABS: Platelet Estimate Increased (Adequate); Stomatocytes 2+ (NORMAL)
[2020-01-30 06:21] LABS: Burr Cells 1+ (NORMAL)
[2020-01-30 07:44] LABS: Glucose Point of Care 73 (65-105)
[2020-01-30] MEDS: PANTOPRAZOLE SODIUM IV 40 MG VIAL IV PUSH (09:13)
[2020-01-30] MEDS: polyethylene glycoL 3350 17 GM POWD.PACK PO (09:13)
[2020-01-30] MEDS: HEPARIN SODIUM 5,000 UNITS/ML VIAL 5000 UNITS SUB-Q ×2 (09:13→20:49)
[2020-01-30] MEDS: PREGABALIN 75 MG CAPSULE PO ×2 (09:53→20:49)
[2020-01-30] MEDS: SODIUM CHLORIDE 0.9% IV 1,000 ML 75 ML IV CONT (10:04)
[2020-01-30 11:09] LABS: Magnesium 1.1 mg/dL (1.6-2.3)
[2020-01-30 14:22] LABS: Glucose Point of Care 150 (65-105)
--- NOTE | 2020-01-30 15:26 | PM.IMPN ---
Progress Note: A&P Assessment and Plan (1) Acute respiratory failure: Qualifiers: Respiratory failure complication: hypoxia and hypercapnia Qualified Code(s): J96.01 - Acute respiratory failure with hypoxia; J96.02 - Acute respiratory failure with hypercapnia Code(s): J96.00 - Acute respiratory failure, unspecified whether with hypoxia or hypercapnia Status: Acute Assessment and Plan: Thought on the basis of pneumonia COPD and possible diastolic heart failure. Extubated 01/23 and doing well d/c steroids on 01/28, seen by Dr. Bess (2) Sepsis: Code(s): A41.9 - Sepsis, unspecified organism Status: Acute Assessment and Plan: Secondary to pneumonia. Briefly on pressors but pressure adequate now. White count still elevated but did receive steroids also WBC apparently mild chronic elevation (3) Pneumonia: Qualifiers: Laterality: unspecified laterality Lung location: unspecified part of lung Pneumonia type: due to unspecified organism Qualified Code(s): J18.9 - Pneumonia, unspecified organism Code(s): J18.9 - Pneumonia, unspecified organism Status: Acute Assessment and Plan: Primarily RL lobe infiltrate. Sputum grew MRSA and remaining on vancomycind#10/10 with imipenem d#10/10 will stop antibiotics tomorrow (4) Acute kidney injury: Code(s): N17.9 - Acute kidney failure, unspecified Status: Acute Assessment and Plan: Creatinine had been 2.2 but now has fallen to 0.9. (5) Elevated troponin: Code(s): R79.89 - Other specified abnormal findings of blood chemistry Status: Acute Assessment and Plan: Flat response and thought secondary to hypoxia and respiratory failure with no acute coronary syndrome (6) Altered mental status: Qualifiers: Altered mental status type: unspecified Qualified Code(s): R41.82 - Altered mental status, unspecified Code(s): R41.82 - Altered mental status, unspecified Status: Acute Assessment and Plan: Thought secondary to hypercapnia and toxic metabolic encephalopathy which has resolved for most part but still intermittantly confused at times (7) Diabetes mellitus with hyperglycemia: Qualifiers: Diabetes mellitus type: type 2 Diabetes mellitus manager terminal insulin use: with manager terminal use Qualified Code(s): E11.65 - Type 2 diabetes mellitus with hyperglycemia; Z79.4 - [facility] (current) use of insulin Code(s): E11.65 - Type 2 diabetes mellitus with hyperglycemia Status: Acute Assessment and Plan: On b.i.d. Lantus which has been held with low BS 01/24 and continue sliding scale. Hemoglobin A1c 8.3 and suspect stress underlying infection along with steroids have raised sugar initially will give lower dose of lantus , now at 30 U hs with bs still high will increase to 35U 01/26 FBS 103 and d/c steroids today (8) DVT prophylaxis: Code(s): Z29.9 - Encounter for prophylactic measures, unspecified Status: Acute Assessment and Plan: Subcu heparin Subjective Date/time seen: 01/30/20 15:26 Date of visit 01/29. 59-year-old type 2 diabetic admitted with sepsis secondary to pneumonia with respiratory failure. Intubated and mechanically ventilated with IV antibiotics and has slowly improved. Extubated 01/23. Patient now out of ICU on medical floor, Alert and talking this am and but still confused, voice raspy but less so passed modified swallow today, he wants to go to rehab Review of Systems Review of Systems: All systems reviewed & are unremarkable except as noted in HPI and below Exam Const: General: comfortable and no acute distress HENMT: General nose exam: Normal nares present Mouth: Yes moist mucous membranes Eyes: General: appearance normal, both eyes and all related structures Sclera: sclerae normal Neck: Neck: supple Resp: Other: Bilateral fair air entry with rhonchi Cardio: Rate: regular rate Rhy
[2020-01-30] MEDS: MAGNESIUM SULF 2 GM/WATER 50ML 2 GM/50 ML BAG IVPB (16:52)
[2020-01-30] MEDS: MAGNESIUM OXIDE 400 MG TABLET PO (16:53)
[2020-01-30] MEDS: POTASSIUM CHLORIDE 20 MEQ TABLET 40 MEQ PO (16:53)
[2020-01-30] MEDS: INSULIN ASPART (*BKC) 100 UNITS/ML SUB-Q (16:54)
[2020-01-30 17:30] LABS: Glucose Point of Care 231 (65-105)
[2020-01-30] MEDS: DORNASE ALFA INH SOLN 1 MG/ML 2.5 ML AMP 2.5 MG INHALATION (19:24)
[2020-01-30] MEDS: INSULIN GLARGINE (*BKC) 100 UNITS/ML 35 UNITS SUB-Q (20:52)
--- NOTE | 2020-01-30 20:56 | PM.PNPUL ---
Progress Note: A&P Assessment and Plan (1) Nosocomial pneumonia: Code(s): J18.9 - Pneumonia, unspecified organism; Y95 - Nosocomial condition Status: Acute Assessment and Plan: - Antibiotic coverage changed 01/21/2020 to imipenem and Vancomycin, today is day #7. - Extubated 01/24/2020, doing well on room air. - Sputum is growing Staph aureus methicillin resistant; will complete antibiotics tomorrow - acute resp failure resolved, CXR improved 01/28/2020 - stop Pulmozyme - start Zyrtec for rhinitis (2) Delirium: Code(s): R41.0 - Disorientation, unspecified Status: Acute Assessment and Plan: Due to acute illness. Improving (3) Rhinitis: Code(s): J31.0 - Chronic rhinitis Status: Acute Assessment and Plan: - add Zyrtec Subjective Date/time seen: 01/30/20 20:56 Interval history: This 59 yo man is seen in follow up for pneumonia with respiratory failure. Extubated 01/23. Less confused. Alert and talking, wants to know when he can go home. Mind is clearer. He asks for some Zyrtec, as he uses this daily for allergies, and is having symptoms now with nasal congestion. He is completing day 10 of vancomycin and imipenem for RLL pneumonia. Plans noted by Dr. Gomez to stop these tomorrow. Magnesium level was low, 1.1, and he received IV replacement and oral supplementation. He will be discharged soon, may be able to go to rehab. He is not quite back to baseline, and would not be capable of staying by himself. Review of Systems Review of Systems: All systems reviewed & are unremarkable except as noted in HPI and below Constitutional: Constitutional: Reports no additional constitutional complaints Comments: nasal congestion Exam Const: General: no acute distress HENMT: Mouth: Yes moist mucous membranes Eyes: General: appearance normal, both eyes and all related structures Neck: Neck: supple and no JVD Resp: Auscultation: no crackles, no rales, no rhonchi, no wheezes and diminished lung sounds (overall clear exam) Cardio: Rate: regular rate Rhythm: regular rhythm Heart sounds: no murmurs GI: Auscultation: normal bowel sounds Skin: General skin exam: normal color and no rashes or lesions noted Extrem: General: normal to inspection, no edema and no pedal edema Objective Data Vital Signs Vital Signs: Vital Signs - 24 hr 01/29/20 22:00 01/30/20 06:00 01/30/20 14:00 Temperature 36.4 C 36.9 C 36.5 C Pulse Rate 96 97 99 Respiratory Rate 20 18 18 Blood Pressure 119/85 143/73 H 145/65 H Pulse Oximetry 97 97 95 01/30/20 19:25 01/30/20 19:27 Temperature Pulse Rate 110 H Respiratory Rate 22 H Blood Pressure Pulse Oximetry 94 Intake/Output Intake/Output: Intake & Output 01/27/20 01/28/20 01/29/20 01/30/20 23:59 23:59 23:59 23:59 Intake Total 1834 2457 2660 4068 Output Total 850 1150 700 Balance 984 1307 2660 3368 Meds/Results Medications: Active Medications Generic Name Dose Route Start Last Admin Trade Name Freq PRN Reason Stop Dose Admin Artificial Tears 1 drop 01/24/20 18:08 01/28/20 15:17 Artificial Tears EACH EYE 1 drop QID PRN Administration Dry Eye(s) Bisacodyl 10 mg 01/25/20 10:48 Dulcolax Suppository RECTAL QAM PRN Constipation Dextrose 12.5 gm 01/25/20 04:51 01/25/20 05:04 Dextrose 50% Syringe IV PUSH 12.5 gm PRN PRN Administration Hypoglycemia Protocol Dornase Vahe 2.5 mg 01/21/20 08:02 01/30/20 19:24 Pulmozyme INHALATION 02/05/20 08:03 2.5 mg Q12HRT CINDI Administration Glucagon 1 mg 01/25/20 04:51 Glucagon For Inj IM PRN PRN Hypoglycemia Protocol Glucose 15 gm 01/25/20 04:51 Glutose 15 PO PRN PRN Hypoglycemia Protocol Heparin Sodium (Porcine) 5,000 units 01/15/20 21:00 0
[2020-01-30 21:06] LABS: Glucose Point of Care 310 (65-105)
[2020-01-31] MEDS: SODIUM CHLORIDE 0.9% IV 1,000 ML 75 ML IV CONT (04:04)
[2020-01-31] MEDS: ACETAMINOPHEN 325 MG TABLET 650 MG PO (05:36)
[2020-01-31 05:49] VITALS: BP 114/60; PULSE 97; RESP 16; TEMP 36.6; O2SAT 97
[2020-01-31 08:07] LABS: Glucose Point of Care 101 (65-105)
[2020-01-31 08:38] LABS: Hematocrit 43.1 % (42.0-52.0); Hemoglobin 14.7 g/dL (14.0-18.0); Mean Corpuscular HGB Conc 34.1 g/dl (32-36); Mean Corpuscular Hemoglobin 31.2 pg (26-34); Mean Corpuscular Volume 91.5 fl (80-100); Mean Platelet Volume 10.8 fl (7.4-10.4); Platelet Count Result 616 k/mm3 (150-375); Red Blood Count 4.71 M/mm3 (4.6-6.20); Red Cell Distribution Width 15.6 % (11.5-14.5); White Blood Count 23.1 K/mm3 (4.5-10.0)
[2020-01-31 08:51] LABS: Blood Urea Nitrogen 11 mg/dL (9-20); Calcium 9.4 mg/dL (8.4-10.2); Carbon Dioxide 23 mmol/L (22-30); Chloride 110 mmol/L (98-107); Estimated CRCL calculation 103 ml/min; Estimated Glomerular Filt Rate > 60; Glucose 139 mg/dL (75-110); Magnesium 1.4 mg/dL (1.6-2.3); Sodium 137 mmol/L (137-145)
[2020-01-31] MEDS: LORATADINE 10 MG TABLET PO (09:48)
[2020-01-31] MEDS: HEPARIN SODIUM 5,000 UNITS/ML VIAL 5000 UNITS SUB-Q ×2 (09:48→20:12)
[2020-01-31] MEDS: PANTOPRAZOLE SODIUM IV 40 MG VIAL IV PUSH (09:48)
[2020-01-31] MEDS: MAGNESIUM OXIDE 400 MG TABLET PO (09:48)
[2020-01-31] MEDS: polyethylene glycoL 3350 17 GM POWD.PACK PO (09:48)
[2020-01-31] MEDS: MAGNESIUM SULF 2 GM/WATER 50ML 2 GM/50 ML BAG IVPB (09:52)
[2020-01-31] MEDS: PREGABALIN 75 MG CAPSULE PO ×2 (09:56→20:18)
[2020-01-31] MEDS: ALBUTEROL SULFATE NEB 2.5 MG/0.5 ML INH INHALATION (10:01)
[2020-01-31 10:02] VITALS: PULSE 102; RESP 18; O2SAT 95
[2020-01-31] MEDS: IPRATROPIUM BR 0.02% INH SOLN 0.5 MG/2.5 ML VIAL INHALATION (10:02)
[2020-01-31 10:13] VITALS: PULSE 107; RESP 18
--- NOTE | 2020-01-31 10:53 | PM.DS ---
DS: Diagnosis Admitting Diagnosis Admitting Diagnosis: Acute respiratory failure with hypoxia Discharge Diagnosis (1) Acute respiratory failure: Qualifiers: Respiratory failure complication: hypoxia and hypercapnia Qualified Code(s): J96.01 - Acute respiratory failure with hypoxia; J96.02 - Acute respiratory failure with hypercapnia Code(s): J96.00 - Acute respiratory failure, unspecified whether with hypoxia or hypercapnia Status: Acute Assessment and Plan: Thought on the basis of pneumonia COPD and possible diastolic heart failure. Extubated 01/23 and doing well d/c steroids on 01/28, seen by Dr. Bess (2) Sepsis: Code(s): A41.9 - Sepsis, unspecified organism Status: Acute Assessment and Plan: Secondary to pneumonia. Briefly on pressors but pressure adequate now. White count still elevated but did receive steroids also WBC apparently mild chronic elevation (3) Pneumonia: Qualifiers: Laterality: unspecified laterality Lung location: unspecified part of lung Pneumonia type: due to unspecified organism Qualified Code(s): J18.9 - Pneumonia, unspecified organism Code(s): J18.9 - Pneumonia, unspecified organism Status: Acute Assessment and Plan: Primarily RL lobe infiltrate. Sputum grew MRSA and remaining on vancomycind#10/10 with imipenem d#10/10, patient is clinically stable, he has recieved anitibiotcs for 10 day, his chest x-ray showed improved and he is clinically stable, will discharge patient to a NH. (4) Acute kidney injury: Code(s): N17.9 - Acute kidney failure, unspecified Status: Acute Assessment and Plan: Creatinine had been 2.2 but now has fallen to 0.9. (5) Elevated troponin: Code(s): R79.89 - Other specified abnormal findings of blood chemistry Status: Acute Assessment and Plan: Flat response and thought secondary to hypoxia and respiratory failure with no acute coronary syndrome (6) Altered mental status: Qualifiers: Altered mental status type: unspecified Qualified Code(s): R41.82 - Altered mental status, unspecified Code(s): R41.82 - Altered mental status, unspecified Status: Acute Assessment and Plan: Thought secondary to hypercapnia and toxic metabolic encephalopathy which has resolved for most part but still intermittantly confused at times (7) Diabetes mellitus with hyperglycemia: Qualifiers: Diabetes mellitus intermodal dispatcher insulin use: with alf use Diabetes mellitus type: type 2 Qualified Code(s): E11.65 - Type 2 diabetes mellitus with hyperglycemia; Z79.4 - half-way (current) use of insulin Code(s): E11.65 - Type 2 diabetes mellitus with hyperglycemia Status: Acute Assessment and Plan: On b.i.d. Lantus which has been held with low BS 01/24 and continue sliding scale. Hemoglobin A1c 8.3 and suspect stress underlying infection along with steroids have raised sugar initially will give lower dose of lantus , now at 30 U hs with bs still high will increase to 35U 01/26 FBS 103 and d/c steroids today (8) DVT prophylaxis: Code(s): Z29.9 - Encounter for prophylactic measures, unspecified Status: Acute Assessment and Plan: Subcu heparin DS: Summary Hospital Course Reason for hospitalization: Jeremías Gaines is a 59 year old male came to the hospital day due to altered mental status. The patient was confused and had decreased responsiveness this morning with normal blood sugars. He was tachycardic his O2 saturations were low. He has a history of having obstructive sleep apnea being noncompliant with his CPAP machine. The patient was discharge from [facility] on 12/04/2019 for urinary tract infection. An echo was performed at [facility] at that time which shows diastolic dysfunction with the EF of 60-65%. That he was at [facility] and discharged with pain medication on 12/17
--- NOTE | 2020-01-31 11:12 | PC.NURSE ---
Dr. Tomeka singleton with discharge to [place].
--- NOTE | 2020-01-31 11:18 | PM.PNPUL ---
Progress Note: A&P Assessment and Plan (1) Nosocomial pneumonia: Code(s): J18.9 - Pneumonia, unspecified organism; Y95 - Nosocomial condition Status: Acute Assessment and Plan: - Antibiotic coverage changed 01/21/2020 to imipenem and Vancomycin, today is day #10. - Extubated 01/24/2020, doing well on room air. - Sputum is growing Staph aureus methicillin resistant; has completed antibiotics. - acute resp failure resolved, CXR improved 01/28/2020 - stopped Pulmozyme, started loratadine for rhinitis, getting magnesium replacement orally - Acute issues resolved, on room air. He can follow up as wanted PRN with pulmonary out patient virtual visit. (2) Delirium: Code(s): R41.0 - Disorientation, unspecified Status: Acute Assessment and Plan: Due to acute illness. Resolved. He is aware that he is going to [place], says that he has been there and refuses to go, so his lack of response and apparent sleep may be behavior. (3) Rhinitis: Code(s): J31.0 - Chronic rhinitis Status: Acute Assessment and Plan: - added histamine dana. Subjective Date/time seen: 01/31/20 11:18 Interval history: This 59 yo man is seen in follow up for pneumonia with respiratory failure. Overall great improvement. Completed day 10 of vancomycin and imipenem for RLL pneumonia. He did not get much sleep last night, so this may be why he is so sleepy now. He appears to be more slee Extubated 01/23. Much better. He is scheduled to go to [place] today, however says tat he refuses to go. Last night was calling 911, calling law firm to complain about his care, totally irrational. His Left forearm Iv has gone bad, was getting more IV magnesium, so changing that to oral. Review of Systems Review of Systems: All systems reviewed & are unremarkable except as noted in HPI and below Constitutional: Constitutional: Reports no additional constitutional complaints Exam Const: General: no acute distress HENMT: Mouth: Yes moist mucous membranes Eyes: General: appearance normal, both eyes and all related structures Other: conjuctivitis is present Neck: Neck: supple and no JVD Resp: Auscultation: no crackles, no rales, no rhonchi, no wheezes and diminished lung sounds (overall clear exam) Cardio: Rate: regular rate Rhythm: regular rhythm Heart sounds: no murmurs GI: Auscultation: normal bowel sounds Skin: General skin exam: normal color and no rashes or lesions noted Extrem: General: normal to inspection, no edema and no pedal edema Objective Data Vital Signs Vital Signs: Vital Signs - 24 hr 01/30/20 14:00 01/30/20 19:25 01/30/20 19:27 Temperature 36.5 C Pulse Rate 99 110 H Respiratory Rate 18 22 H Blood Pressure 145/65 H Pulse Oximetry 95 94 01/30/20 19:35 01/30/20 20:00 01/30/20 21:55 Temperature 36.3 C L Pulse Rate 111 H 110 H 101 H Respiratory Rate 20 22 H 20 Blood Pressure 130/66 Pulse Oximetry 94 100 01/31/20 05:49 01/31/20 10:02 01/31/20 10:13 Temperature 36.6 C Pulse Rate 97 102 H 107 H Respiratory Rate 16 18 18 Blood Pressure 114/60 Pulse Oximetry 97 95 Intake/Output Intake/Output: Intake & Output 01/28/20 01/29/20 01/30/20 01/31/20 23:59 23:59 23:59 23:59 Intake Total 2457 2660 5075 860 Output Total 0191 110 4578 Balance 1307 2660 4375 -240 Meds/Results Medications: Active Medications Generic Name Dose Route Start Last Admin Trade Name Freq PRN Reason Stop Dose Admin Albuterol 2.5 mg 01/31/20 10:37 Albuterol Sulf Neb 2.5mg/0.5ml INHALATION Q6HRT PRN Shortness Of Breath Or Wheezing Artificial Tears 1 drop 01/24/20 18:08 01/30/20 22:21 Artificial Tears EACH EYE 1 drop QID PRN Administration Dry Eye(s) Bisacodyl 10 mg 01/25/20 10:48 Dulcolax Suppository
--- NOTE | 2020-01-31 11:36 | PC.NURSE ---
Dr. Eckert here to see patient. Mag rider infusing. Patient had called me to the room and complained that his IV site was hurting and he wanted it moved. In the process of assessing for a new IV site, Dr. Eckert at bedside and stated to stop Mag rider. She states patients magnesium level is improving and he can continue on oral suppliements and IV Magnesium can be stopped.
[2020-01-31 11:41] LABS: Glucose Point of Care 246 (65-105)
[2020-01-31] MEDS: INSULIN ASPART (*BKC) 100 UNITS/ML SUB-Q ×2 (12:32→16:29)
[2020-01-31 14:00] VITALS: BP 104/51; PULSE 98; RESP 18; TEMP 36.5; O2SAT 100
[2020-01-31 15:04] LABS: Magnesium 1.5 mg/dL (1.6-2.3)
--- NOTE | 2020-01-31 15:58 | PC.NURSE ---
IV antibiotics held today due to no IV access. Dr. Eckert aware and wants IV left out due to patient being discharged today.
[2020-01-31 16:22] LABS: Glucose Point of Care 228 (65-105)
[2020-01-31 20:00] VITALS: BP 129/50; PULSE 102; RESP 16; TEMP 36.7; O2SAT 97
[2020-01-31] MEDS: INSULIN GLARGINE (*BKC) 100 UNITS/ML 35 UNITS SUB-Q (20:18)
[2020-01-31 20:37] LABS: Glucose Point of Care 250 (65-105)
== END 2020-01-31 22:25 | DRG 870 ==
LOC: ANHED 09:06 → ANHICU 09:08 → ANHIMU 01-25 19:15 → ANH2MED 01-26 23:07
PROVIDERS: Internal Medicine; Internal Medicine Critical Care Medicine; Nurse Practitioner; Admitting Provider Family Medicine; Emergency Provider Emergency Medicine; Visit Provider Family Medicine
DX: A41.9 Sepsis, unspecified organism (principal); J18.9 Pneumonia, unspecified organism; R65.21 Severe sepsis with septic shock; J96.01 Acute respiratory failure with hypoxia; J96.02 Acute respiratory failure with hypercapnia; G93.41 Metabolic encephalopathy; J44.0 Chronic obstructive pulmonary disease with (acute) lower respiratory infection; N17.9 Acute kidney failure, unspecified; I50.32 Chronic diastolic (congestive) heart failure; T17.890A Other foreign object in other parts of respiratory tract causing asphyxiation, initial encounter; B95.62 Methicillin resistant Staphylococcus aureus infection as the cause of diseases classified elsewhere; I11.0 Hypertensive heart disease with heart failure; E11.65 Type 2 diabetes mellitus with hyperglycemia; F41.8 Other specified anxiety disorders; D64.9 Anemia, unspecified; K58.9 Irritable bowel syndrome, unspecified; M19.90 Unspecified osteoarthritis, unspecified site; Z20.828 Contact with and (suspected) exposure to other viral communicable diseases; R79.89 Other specified abnormal findings of blood chemistry; E87.5 Hyperkalemia; J31.0 Chronic rhinitis; E86.0 Dehydration; E11.649 Type 2 diabetes mellitus with hypoglycemia without coma; Y95 Nosocomial condition; N40.0 Benign prostatic hyperplasia without lower urinary tract symptoms; Z68.30 Body mass index [BMI] 30.0-30.9, adult; G47.33 Obstructive sleep apnea (adult) (pediatric); Z91.19 Patient's noncompliance with other medical treatment and regimen; Z90.49 Acquired absence of other specified parts of digestive tract; Z79.4 Long term (current) use of insulin; E66.9 Obesity, unspecified
CPT/HCPCS: 31500; 36415; 36556; 36600; 70450; 71045; 71250; 74176; 80048; 80053; 80069; 80202; 80307; 81001; 82010; 82375; 82805; 82948; 83036; 83050; 83605; 83615; 83690; 83735; 83880; 84100; 84145; 84478; 84484; 85025; 85027; 85610; 86140; 87040; 87070; 87077; 87086; 87186; 87205; 87804; 92610; 92611; 93005; 93970; 94002; 94003; 94640; 96365; 96375; 97110; 97116; 97162; 97166; 97530; 97535; 99291; A9270; C1751; C8929; C9113; J0131; J0456; J0610; J0696; J0743; J1120; J1644; J1815; J1940; J2060; J2250; J2370; J2704; J2920; J3010; J3370; J3475; J3480; J7030; J7040; J7050; J7120; J7121; Q9957

== ENCOUNTER 2021-04-10 22:19 | Observation (INO) | payer MEDICARE, SELFPAY ==
--- NOTE | ~2021-04-10 | CT_ITS ---
EXAMINATION: CT abdomen pelvis wo con DATE: 04/10/2021 23:19 INDICATION: Abdominal injury. TECHNIQUE: Computed tomography (CT) of the abdomen and pelvis was performed without intravenous contr ast. Automated exposure control and iterative reconstruction technique were employed. The dose-length product was 1526.33 mGy-cm. COMPARISON: CT chest, abdomen, and pelvis 01/21/2020 FINDINGS: A calcified right lung nodule is consistent with old granulomatous disease. 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 No pleural effusion. The heart si ze is normal. No pericardial effusion. The liver is normal. There are changes of cholecystectomy. The re are surgical changes of splenectomy with accessory spleen versus chronic scarring at the surgical site. The pancreas and right adrenal gland are normal. There is a 5.4 cm mass containing fat in left adrenal gland, consistent with a myelolipoma. Right kidney is normal. There is a 5 mm stone in left k idney. There are no dilated loops of bowel. The appendix is normal. There are no pathologically enlar ged lymph nodes. There is no free intraperitoneal fluid. There is a small left inguinal hernia contai leatha fat. There are old bilateral healed bilateral rib fractures. There is mild thoracolumbar spondyl osis. IMPRESSION: 1. 5 mm nonobstructing left kidney stone. 2. Small left inguinal hernia containing fat. Reviewed, dictated and finalized at location A.
--- NOTE | ~2021-04-10 | XR_ITS ---
EXAMINATION: XR chest 1V portable DATE: 04/10/2021 23:08 INDICATION: Fall. TECHNIQUE: A single frontal view of the chest was obtained. COMPARISON: Chest single view 01/28/2020, chest CT 01/21/2020 FINDINGS: The chest demonstrates clear lungs without pneumonia, pleural effusion, or pneumothorax. Th e heart size is normal. There is prominent extrapleural fat on the right. IMPRESSION: 1. No acute cardiopulmonary disease. Reviewed, dictated and finalized at location A.
--- NOTE | ~2021-04-10 | CT_ITS ---
EXAMINATION: CT brain wo con DATE: 04/10/2021 23:19 INDICATION: Dizziness. Fall. TECHNIQUE: Computed tomography (CT) of the head was performed without intravenous contrast. The mA wa s adjusted according to patient size. Iterative reconstruction technique was employed. The dose-lengt h product was 681.00 mGy-cm. COMPARISON: Head CT 01/15/2020 FINDINGS: There are old infarcts involving the right frontal and parietal lobes. There is an old infa rct in left lentiform nucleus. There is no intracranial hemorrhage, acute infarction, or abnormal int racranial mass lesion. There is ex vacuo dilatation of body of right lateral ventricle. The orbits ar e normal. There is mild mucosal thickening in the paranasal sinuses. The mastoid air cells are normal . There is soft tissue swelling of the posterior scalp. IMPRESSION: 1. Old infarcts in the right frontal and parietal lobes and left lentiform nucleus. Reviewed, dictated and finalized at location A. IMPRESSION: 1. Old infarcts in the right frontal and parietal lobes and left lentiform nucl eus.
[2021-04-10 22:21] VITALS: BP 159/76; PULSE 123; RESP 20; O2SAT 92
--- NOTE | 2021-04-10 23:13 | PC.NURSE ---
pt to radiology via cart.
[2021-04-10 23:14] LABS: Basophils Absolute Auto 0.1 K/mm3 (0.0-0.1); Basophils Percent Auto 0.6 % (0.2-1.2); Eosinophils Absolute Auto 0.4 K/mm3 (0-0.3); Hematocrit 38.3 % (42.0-52.0); Immature Granulocyte Absolute 0.39 K/mm3 (0.00-0.031); Immature Granulocyte Percent A 1.9 % (0-0.5); Lymphocytes Absolute Auto 3.31 K/mm3 (0.9-3.2); Lymphocytes Percent Auto 15.9 % (18.3-44.2); Mean Corpuscular HGB Conc 33.9 g/dl (32-36); Mean Corpuscular Hemoglobin 30.7 pg (26-34); Mean Corpuscular Volume 90.5 fl (80-100); Mean Platelet Volume 10.8 fl (7.4-10.4); Monocytes Absolute Auto 1.9 K/mm3 (0.1-0.6); Monocytes Percent Auto 8.9 % (2.6-8.5); Neutrophils Absolute Auto 14.7 K/mm3 (1.3-6.7); Neutrophils Percent Auto 70.7 % (45.5-73.1); Nucleated Red Blood Cells Perc 0.1 % (0.0-0.2); Platelet Count Result 558 k/mm3 (150-375); Red Blood Count 4.23 M/mm3 (4.6-6.20); Red Cell Distribution Width 15.4 % (11.5-14.5); White Blood Count 20.8 K/mm3 (4.5-10.0)
--- NOTE | 2021-04-10 23:14 | PC.NURSE ---
Pt presents to ED with complaints of rectal bleeding that onset approx 1/2 hour ago. Pt states he was going to the restroom and denies falling states I sat down hard on the floor and my bottom started bleeding . Pt denies dizziness prior to fall and denies hitting head and loc. Per EMS, pt expelled a blood clot when they got him up off of the floor. Pt presented to ED alert and oriented x4 and in no obvious distress. Pt complains of rectal pain rated 10/10. Denies hx of hemmorhoids and GI bleeds. Pt complains of sob and denies chest pain at this time. Denies, nvd, fever and chills. Pt noted with an area of what he said was fused skin at sacral area that is now torn and has obvious open wound that had clotted blood. Pt is adamant that skin was fused together. No active bleeding at this time. Pt resting on cart in its lowest position with call button and personal items within reach. Spouse is present at bedside.
--- NOTE | 2021-04-10 23:18 | PC.NURSE ---
Pt returned from radiology.
[2021-04-10 23:23] LABS: INR 0.9; Prothrombin Time 12.6 Seconds (11.1-14.7)
[2021-04-10 23:24] LABS: Partial Thromboplastin Time 29.4 SECONDS (22.3-36.8)
[2021-04-10 23:28] LABS: Alanine Aminotransferase 20 U/L (4-50); Albumin Level 3.6 g/dL (3.5-5.1); Alkaline Phosphatase 132 U/L (38-126); Anion Gap 8 mmol/L (8-16); Aspartate Amino Transferase 24 U/L (17-59); Bilirubin,Total 0.3 mg/dL (0.2-1.3); Blood Urea Nitrogen 38 mg/dL (9-20); CRP 3.4 mg/dL (<1.0); Calcium 10.5 mg/dL (8.4-10.2); Carbon Dioxide 24 mmol/L (22-30); Chloride 104 mmol/L (98-107); Estimated CRCL calculation 68 ml/min; Estimated Glomerular Filt Rate > 60; Glucose 281 mg/dL (75-110); Sodium 136 mmol/L (137-145)
--- NOTE | 2021-04-10 23:34 | ED.GENADULT ---
HPI - General Adult General Chief complaint: Unspecified Stated complaint: Gi bleed Time Seen by Provider: 04/10/21 22:50 Source: patient, EMS and RN notes reviewed Mode of arrival: EMS Limitations: clinical condition History of Present Illness HPI narrative: Patient is a 60-year-old male who presents to emergency department for evaluation of possible syncopal episode patient was at home with family was found on the ground with blood on the floor next to him brought in by EMS for this patient on arrival is alert and oriented x2 to self and reason for being in the emergency department patient's fianc? is accompanying him noting that he does have confusion normally patient notes pain to the buttock where he has a wound that has reopened and is the source of the likely bleeding which is resolved on arrival to emergency department patient notes pain in the sacrum. Patient has multiple comorbidities on arrival he denies any head pain chest pain or abdominal pain notes pain to the sacral area where he has his wound patient has had recent urinary tract infections with sepsis patient is currently not on any antibiotics. Patient notes keloids and chronic wounds in the sacral area which may have been the source of the bleeding when he fell Related Data Home Medications Medication Instructions Recorded Confirmed fenofibrate 160 mg PO DAILY 01/15/20 01/15/20 metformin 1,000 mg PO BID 01/15/20 01/15/20 tamsulosin 0.4 mg PO DAILY 01/15/20 01/15/20 albuterol sulfate 90 mcg/actuation 1 puff INHALATION Q4H PRN 11/08/20 aerosol inhaler allopurinol 100 mg tablet 100 mg PO DAILY 11/08/20 aspirin 81 mg tablet,delayed 81 mg PO DAILY 11/08/20 release budesonide-formoterol HFA 160 2 puff INHALATION Q12H 11/08/20 mcg-4.5 mcg/actuation aerosol inhaler cholecalciferol (vitamin D3) 1,250 1,250 mcg PO WEEKLY 11/08/20 mcg (50,000 unit) capsule finasteride 5 mg tablet 5 mg PO DAILY 11/08/20 insulin lispro 100 unit/mL See Rx Instructions .ROUTE .COMPLEX 11/08/20 subcutaneous solution midodrine 5 mg tablet 5 mg PO .QD tablet 11/08/20 montelukast 10 mg tablet 10 mg PO DAILY 11/08/20 simvastatin 20 mg tablet 20 mg PO DAILY 11/08/20 diazepam 10 mg tablet 10 mg PO TID PRN 11/15/20 Allergies Allergy/AdvReac Type Severity Reaction Status Date / Time naproxen Allergy Intermediate SWELLING Verified 04/10/21 22:21 iohexol Allergy Unknown Verified 04/10/21 22:21 [From contrast - CT, X-RAY] Review of Systems Review of Systems: All systems reviewed & are unremarkable except as noted in HPI and below PMFSH Past Medical History Medical History Anemia Anxiety BPH (benign prostatic hyperplasia) Chronic UTI (~2019) Congestive heart failure Diastolic dysfunction CVA (cerebral vascular accident) (~2014) Depression DM2 (diabetes mellitus, type 2) Enterobacter sepsis UTI History of CVA (cerebrovascular accident) HTN (hypertension) with goal to be determined Left great toe amputee (~04/2020) Leg mass Right leg mass excised Migraines Myelofibrosis Neuropathy Obstructive sleep apnea Noncompliant with CPAP Pulmonary embolism (~01/2020) Surgical History Surgical History H/O hernia repair H/O splenectomy (~08/2019) Hx of cholecystectomy Family History Family History Unknown Family history unknown Father , 75 Congestive heart failure Mother , 74 Brain bleed Sibling , Sister Cancer Social History Social History Social History: Patient is listed as a full code. Patient drinks 3 cups of caffeine daily Smoking packs per day: 1 Smoking cigarettes per day: 20.0 Years smoked: 20 Smoking pack-years: 20.00 Smoking status: Former smoker Tobacco type: cigars
[2021-04-10] MEDS: SODIUM CHLORIDE 0.9% IV 1,000 ML 999 ML IV CONT (23:41)
[2021-04-10 23:43] LABS: Add Urine Microscopic? YES; Appearance Urine Clear (Clear); Bilirubin Urine Negative (Negative); Blood Urine 1+ (Negative); Color Urine Straw (Yellow); Glucose Urine UA 3+ mg/dL (Negative); Ketones Urine Negative (Negative); Leukocyte Esterase Ur Negative LEU/UL (Negative); Nitrate Urine Negative (Negative); Protein Urine 3+ mg/dL (Negative); RBC Urine 0-2 /hpf (0-2); Specific Grav Ur 1.014 (1.001-1.035); Urobilinogen Urine Negative mg/dL (<2.0); WBC Urine 0-3 /hpf
[2021-04-10 23:51] LABS: Alveolar/Arterial O2 Gradient 36.3 mmHg; Base Excess ABG 0.3 mEq/l (+/-2.0); Carboxyhemoglobin 0.6 % THb (0-2.0); Fractional Inspired Oxygen 21 %; HCO3 ABG 24.7 mEq/l (22.0-26.0); Methemoglobin ABG 0.2 %THb (0-1.5); Oxygen Content ABG 16.7 %vol (16.0-22.0); Oxygen Saturation ABG 93.6 % (95.0-100.0); Oxyhemoglobin 92.2 % THb (90.0-100.0); PO2 ABG 66.7 mmHg (80.0-100.0); PO2 FiO2 Ratio Arterial Blood 3.18 %; Total Hemoglobin 12.9 g/dL (12.0-18.0); pH ABG 7.419 (7.350-7.450)
[2021-04-10 23:51] LABS: Lactic Acid Reflex 2.9 mmol/L (0.7-2.1)
[2021-04-10 23:52] LABS: Device ROOM AIR; Modified Allen's Test Pass; Site Drawn RIGHT RADIAL
[2021-04-11] VITALS (15 sets, daily range): BP systolic 116–152; BP diastolic 49–78; PULSE 85–110; RESP 16–22; TEMP 35.6–36.9; O2SAT 91–98; BMI 35.9
--- NOTE | 2021-04-11 00:16 | ECG_ITS ---
Measurements Intervals [place] Rate: 112 P: 41 MA: 148 QRS: 9 QRSD: 98 T: 62 QT: 327 QTc: 448 Interpretive Statements SINUS TACHYCARDIA BASELINE ARTIFACT- II, III, AVR, AVF, V1-V6 ABNORMAL ECG Electronically Signed On 04-11-2021 7:41:36 CDT by Phillip Rodriguez D.O.
[2021-04-11] MEDS: SODIUM CHLORIDE 0.9% IV 1,000 ML 999 ML IV CONT (00:19)
--- NOTE | 2021-04-11 01:23 | PM.IMHP ---
H&P: HPI History of Present Illness Date/Time: 04/11/21 01:23 Chief Complaint: AMS Narrative: THIS IS A 60-YEAR-OLD MALE WITH PAST MEDICAL HISTORY SIGNIFICANT FOR COPD, CHRONIC STROKE, BENIGN PROSTATIC HYPERPLASIA, SEASONAL ALLERGY, DEPRESSION, OBESITY, A SPLENECTOMY, TYPE 2 DIABETES MELLITUS INSULIN DEPENDENT, GOUT PRIOR ADMISSION TO OUR HOSPITAL WITH PNEUMONIA SEPSIS AND RESPIRATORY FAILURE REQUIRING VENTILATOR SUPPORT. PATIENT PRESENTED TODAY TO THE EMERGENCY ROOM A HE WAS ACCOMPANIED BY HIS GIRLFRIEND SHE WAS CONCERNED DUE TO PATIENT HAVING A FALL AFTER HE TOOK AN AMBIEN AND WAS GOING TO GO TO BED HE FELL IN THE KITCHEN HAD NO LOSS OF CONSCIOUSNESS. PATIENT IS NOT ABLE TO PROVIDE MUCH HISTORY HE IS A POOR HISTORIAN HE IS CONCERNED ABOUT A WOUND IN HIS SACRAL AREA FROM WHERE HE HAD SOME BLEEDING EARLIER ON WHILE IN THE EMERGENCY ROOM. AT THE TIME OF MY VISIT PATIENT DENIED ANY DISCOMFORT. PRELIMINARY WORKUP WAS SIGNIFICANT FOR CT OF THE HEAD WITH OLD STROKE NO ACUTE ABNORMALITY CHEMISTRY WAS UNREMARKABLE AND CBC SIGNIFICANT FOR LEUKOCYTOSIS LACTIC ACID ELEVATED DECISION HAS BEEN MADE TO PLACE THE PATIENT IN OBSERVATION. Review of Systems Review of Systems: Narrative: PATIENT A STATES THAT HE CAME TO THE EMERGENCY ROOM AFTER HAVING A FALL IN THE KITCHEN ROS unobtainable: Yes unobtainable due to mental status PMFSH Past Medical History Medical History Anemia Anxiety BPH (benign prostatic hyperplasia) Chronic UTI (~2019) Congestive heart failure Diastolic dysfunction CVA (cerebral vascular accident) (~2014) Depression DM2 (diabetes mellitus, type 2) Enterobacter sepsis UTI History of CVA (cerebrovascular accident) HTN (hypertension) with goal to be determined Left great toe amputee (~04/2020) Leg mass Right leg mass excised Migraines Myelofibrosis Neuropathy Obstructive sleep apnea Noncompliant with CPAP Pulmonary embolism (~01/2020) Surgical History Surgical History H/O hernia repair H/O splenectomy (~08/2019) Hx of cholecystectomy Family History Family History Unknown Family history unknown Father , 75 Congestive heart failure Mother , 74 Brain bleed Sibling , Sister Cancer Social History Social History Social History: Patient is listed as a full code. Patient drinks 3 cups of caffeine daily Smoking packs per day: 1 Smoking cigarettes per day: 20.0 Years smoked: 20 Smoking pack-years: 20.00 Smoking status: Former smoker Tobacco type: cigars Smoking end date: 10/18/94 Additional smoking assessment comments: One cigar per week Alcohol intake: current Drinks per week: 1 Substance use: never Substance use type: does not use Gender identity (if verbalized by the patient): Male Spiritual care concerns: No Agree to blood products: Yes Meds Home Medications and Allergies Home Medications Medication Instructions Recorded Confirmed Type fenofibrate 160 mg PO DAILY 01/15/20 01/15/20 History metformin 1,000 mg PO BID 01/15/20 01/15/20 History tamsulosin 0.4 mg PO DAILY 01/15/20 01/15/20 History loratadine 10 mg PO QAM #30 tablet 01/31/20 Rx magnesium oxide 400 mg PO QAM #30 tablet 01/31/20 Rx pantoprazole [Protonix] 40 mg PO QAM 28 Days #28 tablet 01/31/20 Rx albuterol sulfate 90 mcg/actuation 1 puff INHALATION Q4H PRN 11/08/20 History aerosol inhaler allopurinol 100 mg tablet 100 mg PO DAILY 11/08/20 History aspirin 81 mg tablet,delayed 81 mg PO DAILY 11/08/20 History release budesonide-formoterol HFA 160 2 puff INHALATION Q12H 11/08/20 History mcg-4.5 mcg/actuation aerosol inhaler cholecalciferol (vitamin D3) 1,250 1,250 mcg PO WEEKLY 11/08/20 History mcg (50,000 unit) capsule ci
--- NOTE | 2021-04-11 01:29 | PC.NURSE ---
Glucose 248.
--- NOTE | 2021-04-11 01:30 | PC.NURSE ---
Pt resting on cart in its lowest position with call button and personal items within reach. Pt watching tv. Pt advised to press call button for assistance. Vitals are stable and pt in no obvious distress at this time.
[2021-04-11 01:31] LABS: Glucose Point of Care 246 mg/dl (65-105)
--- NOTE | 2021-04-11 01:39 | PC.NURSE ---
Report called to 3rd med/surg.
--- NOTE | 2021-04-11 01:44 | PC.NURSE ---
Report called to [facility]. Pt ok to go to floor.
--- NOTE | 2021-04-11 02:12 | ADMGEN ---
This patient, Jeremías Gaines, was admitted to [facility] Surg Room 327-01 on 04/11/21 at 0200. Patient/family oriented to hospital policies and general routines including ID bracelet, bed and alarms, visiting hours, pain management, procedures, bathroom and other care routines, personal items, smoking policy, room service/diet, and visiting hours. Information on how to activate the Rapid Response Team has been discussed. Patient/Family are encouraged to report perceived risks to care and to ask questions if they do not understand what they are told or what they should do.
[2021-04-11 02:40] LABS: Reflex Lactic Acid Yes or No Add Lactic
[2021-04-11 04:57] LABS: Lactic Acid 1.3 mmol/L (0.7-2.1)
[2021-04-11 08:11] LABS: Glucose Point of Care 177 mg/dl (65-105)
[2021-04-11] MEDS: MIDODRINE HCL 2.5 MG TABLET 5 MG BY MOUTH ×2 (09:24→17:47)
[2021-04-11] MEDS: PANTOPRAZOLE 40 MG TABLET PO (09:25)
[2021-04-11] MEDS: metFORMIN HCL 500 MG TABLET 1000 MG PO ×2 (09:25→17:49)
[2021-04-11] MEDS: TAMSULOSIN HCL 0.4 MG CAPSULE PO (09:25)
[2021-04-11] MEDS: busPIRone HCL 5 MG TABLET 15 MG PO ×2 (09:25→17:48)
[2021-04-11] MEDS: FINASTERIDE 5 MG TABLET PO (09:25)
[2021-04-11] MEDS: VENLAFAXINE HCL 37.5 MG TABLET PO ×2 (09:25→17:50)
[2021-04-11] MEDS: allopurinoL 100 MG TABLET PO (09:25)
[2021-04-11] MEDS: MAGNESIUM OXIDE 400 MG TABLET PO (09:26)
[2021-04-11] MEDS: LORATADINE 10 MG TABLET PO (09:26)
[2021-04-11] MEDS: METOPROLOL SUCCINATE EXT REL 12.5 MG TABCR PO ×2 (09:26→17:49)
[2021-04-11] MEDS: SILVER SULFADIAZINE 1% CR 400 GM JAR (*BKC) 1 APPLIC TOPICAL ×2 (09:27→17:50)
[2021-04-11] MEDS: PREGABALIN (*CRX) 50 MG CAPSULE 100 MG PO ×2 (09:31→17:47)
[2021-04-11 11:38] LABS: Glucose Point of Care 303 mg/dl (65-105)
[2021-04-11] MEDS: INSULIN ASPART (*BKC) 100 UNITS/ML SUB-Q (12:56)
[2021-04-11] MEDS: FAMOTIDINE 20 MG/2 ML VIAL IV PUSH ×2 (12:57→20:21)
--- NOTE | 2021-04-11 16:08 | PM.IMPN ---
Progress Note: A&P Assessment and Plan (1) Altered mental status: Qualifiers: Altered mental status type: unspecified Qualified Code(s): R41.82 - Altered mental status, unspecified Code(s): R41.82 - Altered mental status, unspecified Status: Acute Assessment and Plan: PATIENT WITH MILD COGNITIVE IMPAIRMENT HAD AN AMBIEN WILL PLACE ON OBSERVATION CT HEAD WITH OLD STROKE AN AREA OF ENCEPHALOMALACIA 04/11/21 16:08 Chief Complaint: AMS Narrative: THIS IS A 60-YEAR-OLD MALE WITH PAST MEDICAL HISTORY SIGNIFICANT FOR COPD, CHRONIC STROKE, BENIGN PROSTATIC HYPERPLASIA, SEASONAL ALLERGY, DEPRESSION, OBESITY, A SPLENECTOMY, TYPE 2 DIABETES MELLITUS INSULIN DEPENDENT, GOUT PRIOR ADMISSION TO OUR HOSPITAL WITH PNEUMONIA SEPSIS AND RESPIRATORY FAILURE REQUIRING VENTILATOR SUPPORT. PATIENT PRESENTED TODAY TO THE EMERGENCY ROOM A HE WAS ACCOMPANIED BY HIS GIRLFRIEND SHE WAS CONCERNED DUE TO PATIENT HAVING A FALL AFTER HE TOOK AN AMBIEN AND WAS GOING TO GO TO BED HE FELL IN THE KITCHEN HAD NO LOSS OF CONSCIOUSNESS. PATIENT IS NOT ABLE TO PROVIDE MUCH HISTORY HE IS A POOR HISTORIAN HE IS CONCERNED ABOUT A WOUND IN HIS SACRAL AREA FROM WHERE HE HAD SOME BLEEDING EARLIER ON WHILE IN THE EMERGENCY ROOM. AT THE TIME OF MY VISIT PATIENT DENIED ANY DISCOMFORT. PRELIMINARY WORKUP WAS SIGNIFICANT FOR CT OF THE HEAD WITH OLD STROKE NO ACUTE ABNORMALITY CHEMISTRY WAS UNREMARKABLE AND CBC SIGNIFICANT FOR LEUKOCYTOSIS LACTIC ACID ELEVATED DECISION HAS BEEN MADE TO PLACE THE PATIENT IN OBSERVATION. 04/11 patient with acute mental status change and fall most likely secondary multi sedating medication baclofen, cyclobenzaprine, Ambien, buspirone, and Lyrica combination all this medication may make patient somnolent and drowsy, will holding these medications, patient also has wound in his bottom seen by wound team evaluated and treated, will monitor patient will have a PT OT evaluate the patient and further recommendation to follow. (2) Syncope: Code(s): R55 - Syncope and collapse Status: Acute Assessment and Plan: PATIENT DENIES LOSS OF CONSCIOUSNESS HAD A FALL A GROUND LEVEL LANDING ON HIS BOTTOM SUPPORTIVE CARE (3) Sacral wound: Code(s): S31.000A - Unspecified open wound of lower back and pelvis without penetration into retroperitoneum, initial encounter Status: Acute Assessment and Plan: WOUND CARE CONSULT (4) History of CVA (cerebrovascular accident): Code(s): Z86.73 - Personal history of transient ischemic attack (TIA), and cerebral infarction without residual deficits Status: Chronic Assessment and Plan: CONTINUE STATIN (5) DM2 (diabetes mellitus, type 2): Qualifiers: Diabetes mellitus long term care phlebotomist insulin use: with custodial use Diabetes mellitus complication status: without complication Qualified Code(s): E11.9 - Type 2 diabetes mellitus without complications; Z79.4 - alf (current) use of insulin Code(s): E11.9 - Type 2 diabetes mellitus without complications Status: Chronic Assessment and Plan: CONTINUE INSULIN ACCU-CHEKS AC AND HS (6) HTN (hypertension) with goal to be determined: Code(s): I10 - Essential (primary) hypertension Status: Chronic Assessment and Plan: CONTINUE HOME MED CONTINUE TO MONITOR (7) Depression: Code(s): F32.9 - Major depressive disorder, single episode, unspecified Status: Chronic Assessment and Plan: WILL HOLD HOME MEDS IN VIEW OF PATIENT'S MILD ALTERATION OF MENTAL STATUS UNCLEAR IF THIS IS HIS BASELINE PATIENT SEEMS TO BE HAVING TROUBLE REMEMBERING THINGS (8) Obstructive sleep apnea: Code(s): G47.33 - Obstructive sleep apnea (adult) (pediatric) Status: Chronic Assessment and Plan: CPAP AT NIGHTTIME HISTORY OF NONCOMPLIANCE (9) Leukocytosis: Code(s): D72.829 - Elevated white blood cell count, unspecified Status:
[2021-04-11 17:08] LABS: Glucose Point of Care 166 mg/dl (65-105)
[2021-04-11] MEDS: FENOFIBRATE 160 MG TABLET PO (17:50)
[2021-04-11] MEDS: MONTELUKAST SODIUM 10 MG TABLET PO (20:21)
[2021-04-11] MEDS: PRAVASTATIN SODIUM 20 MG TABLET 40 MG PO (20:21)
[2021-04-11] MEDS: ZOLPIDEM TARTRATE (*CRX) 5 MG TABLET 10 MG PO (21:03)
[2021-04-11 21:14] LABS: Glucose Point of Care 248 mg/dl (65-105)
[2021-04-12] VITALS (13 sets, daily range): BP systolic 126–156; BP diastolic 62–78; PULSE 99–115; RESP 18–20; TEMP 35.8–36.4; O2SAT 93–97
[2021-04-12 06:39] LABS: Basophils Absolute Auto 0.2 K/mm3 (0.0-0.1); Basophils Percent Auto 1.2 % (0.2-1.2); Eosinophils Absolute Auto 0.9 K/mm3 (0-0.3); Eosinophils Percent Auto 4.5 % (0-4.4); Hematocrit 39.6 % (42.0-52.0); Hemoglobin 13.2 g/dL (14.0-18.0); Immature Granulocyte Percent A 2.5 % (0-0.5); Lymphocytes Absolute Auto 4.54 K/mm3 (0.9-3.2); Lymphocytes Percent Auto 23.1 % (18.3-44.2); Mean Corpuscular HGB Conc 33.3 g/dl (32-36); Mean Corpuscular Hemoglobin 30.1 pg (26-34); Mean Corpuscular Volume 90.2 fl (80-100); Mean Platelet Volume 10.8 fl (7.4-10.4); Monocytes Absolute Auto 1.7 K/mm3 (0.1-0.6); Monocytes Percent Auto 8.6 % (2.6-8.5); Neutrophils Absolute Auto 11.8 K/mm3 (1.3-6.7); Neutrophils Percent Auto 60.1 % (45.5-73.1); Platelet Count Result 604 k/mm3 (150-375); Red Blood Count 4.39 M/mm3 (4.6-6.20); Red Cell Distribution Width 15.6 % (11.5-14.5); White Blood Count 19.7 K/mm3 (4.5-10.0)
[2021-04-12 06:49] LABS: Alanine Aminotransferase 20 U/L (4-50); Albumin Level 3.6 g/dL (3.5-5.1); Alkaline Phosphatase 71 U/L (38-126); Anion Gap 6 mmol/L (8-16); Aspartate Amino Transferase 27 U/L (17-59); Bilirubin,Total 0.5 mg/dL (0.2-1.3); Blood Urea Nitrogen 22 mg/dL (9-20); Calcium 9.6 mg/dL (8.4-10.2); Carbon Dioxide 24 mmol/L (22-30); Chloride 106 mmol/L (98-107); Estimated CRCL calculation 80 ml/min; Estimated Glomerular Filt Rate > 60; Glucose 145 mg/dL (75-110); Potassium 4.3 mmol/L (3.4-5.0); Sodium 136 mmol/L (137-145)
[2021-04-12 07:58] LABS: Glucose Point of Care 222 mg/dl (65-105)
[2021-04-12] MEDS: VENLAFAXINE HCL 37.5 MG TABLET PO ×2 (09:16→16:36)
[2021-04-12] MEDS: MAGNESIUM OXIDE 400 MG TABLET PO (09:16)
[2021-04-12] MEDS: FAMOTIDINE 20 MG/2 ML VIAL IV PUSH (09:17)
[2021-04-12] MEDS: TAMSULOSIN HCL 0.4 MG CAPSULE PO (09:17)
[2021-04-12] MEDS: METOPROLOL SUCCINATE EXT REL 12.5 MG TABCR PO ×2 (09:17→16:36)
[2021-04-12] MEDS: metFORMIN HCL 500 MG TABLET 1000 MG PO ×2 (09:17→16:35)
[2021-04-12] MEDS: MIDODRINE HCL 2.5 MG TABLET 5 MG BY MOUTH (09:17)
[2021-04-12] MEDS: INSULIN ASPART (*BKC) 100 UNITS/ML SUB-Q ×2 (09:17→16:49)
[2021-04-12] MEDS: FINASTERIDE 5 MG TABLET PO (09:17)
[2021-04-12] MEDS: allopurinoL 100 MG TABLET PO (09:18)
[2021-04-12] MEDS: PANTOPRAZOLE 40 MG TABLET PO (09:18)
[2021-04-12] MEDS: busPIRone HCL 5 MG TABLET 15 MG PO ×2 (09:18→16:35)
[2021-04-12] MEDS: LORATADINE 10 MG TABLET PO (09:19)
[2021-04-12] MEDS: SILVER SULFADIAZINE 1% CR 400 GM JAR (*BKC) 1 APPLIC TOPICAL ×2 (09:19→16:37)
[2021-04-12] MEDS: PREGABALIN (*CRX) 50 MG CAPSULE 100 MG PO ×2 (09:24→16:40)
--- NOTE | 2021-04-12 15:14 | PM.DS ---
DS: Admitting Diagnosis Admitting Diagnosis Admitting Diagnosis: acute mental status change DS: Discharge Diagnosis Discharge Diagnosis (1) Altered mental status: Qualifiers: Altered mental status type: unspecified Qualified Code(s): R41.82 - Altered mental status, unspecified Code(s): R41.82 - Altered mental status, unspecified Status: Acute Assessment and Plan: PATIENT WITH MILD COGNITIVE IMPAIRMENT HAD AN AMBIEN WILL PLACE ON OBSERVATION CT HEAD WITH OLD STROKE AN AREA OF ENCEPHALOMALACIA 04/11/21 16:08 Chief Complaint: AMS Narrative: THIS IS A 60-YEAR-OLD MALE WITH PAST MEDICAL HISTORY SIGNIFICANT FOR COPD, CHRONIC STROKE, BENIGN PROSTATIC HYPERPLASIA, SEASONAL ALLERGY, DEPRESSION, OBESITY, A SPLENECTOMY, TYPE 2 DIABETES MELLITUS INSULIN DEPENDENT, GOUT PRIOR ADMISSION TO OUR HOSPITAL WITH PNEUMONIA SEPSIS AND RESPIRATORY FAILURE REQUIRING VENTILATOR SUPPORT. PATIENT PRESENTED TODAY TO THE EMERGENCY ROOM A HE WAS ACCOMPANIED BY HIS GIRLFRIEND SHE WAS CONCERNED DUE TO PATIENT HAVING A FALL AFTER HE TOOK AN AMBIEN AND WAS GOING TO GO TO BED HE FELL IN THE KITCHEN HAD NO LOSS OF CONSCIOUSNESS. PATIENT IS NOT ABLE TO PROVIDE MUCH HISTORY HE IS A POOR HISTORIAN HE IS CONCERNED ABOUT A WOUND IN HIS SACRAL AREA FROM WHERE HE HAD SOME BLEEDING EARLIER ON WHILE IN THE EMERGENCY ROOM. AT THE TIME OF MY VISIT PATIENT DENIED ANY DISCOMFORT. PRELIMINARY WORKUP WAS SIGNIFICANT FOR CT OF THE HEAD WITH OLD STROKE NO ACUTE ABNORMALITY CHEMISTRY WAS UNREMARKABLE AND CBC SIGNIFICANT FOR LEUKOCYTOSIS LACTIC ACID ELEVATED DECISION HAS BEEN MADE TO PLACE THE PATIENT IN OBSERVATION. 04/11 patient with acute mental status change and fall most likely secondary multi sedating medication baclofen, cyclobenzaprine, Ambien, buspirone, and Lyrica combination all this medication may make patient somnolent and drowsy, will holding these medications, patient also has wound in his bottom seen by wound team evaluated and treated, will monitor patient will have a PT OT evaluate the patient and further recommendation to follow. (2) Syncope: Code(s): R55 - Syncope and collapse Status: Acute Assessment and Plan: PATIENT DENIES LOSS OF CONSCIOUSNESS HAD A FALL A GROUND LEVEL LANDING ON HIS BOTTOM SUPPORTIVE CARE (3) Sacral wound: Code(s): S31.000A - Unspecified open wound of lower back and pelvis without penetration into retroperitoneum, initial encounter Status: Acute Assessment and Plan: WOUND CARE CONSULT (4) History of CVA (cerebrovascular accident): Code(s): Z86.73 - Personal history of transient ischemic attack (TIA), and cerebral infarction without residual deficits Status: Chronic Assessment and Plan: CONTINUE STATIN (5) DM2 (diabetes mellitus, type 2): Qualifiers: Diabetes mellitus intermediate designer insulin use: with intermediate designer use Diabetes mellitus complication status: without complication Qualified Code(s): E11.9 - Type 2 diabetes mellitus without complications; Z79.4 - buttermaker (current) use of insulin Code(s): E11.9 - Type 2 diabetes mellitus without complications Status: Chronic Assessment and Plan: CONTINUE INSULIN ACCU-CHEKS AC AND HS (6) HTN (hypertension) with goal to be determined: Code(s): I10 - Essential (primary) hypertension Status: Chronic Assessment and Plan: CONTINUE HOME MED CONTINUE TO MONITOR (7) Depression: Code(s): F32.9 - Major depressive disorder, single episode, unspecified Status: Chronic Assessment and Plan: WILL HOLD HOME MEDS IN VIEW OF PATIENT'S MILD ALTERATION OF MENTAL STATUS UNCLEAR IF THIS IS HIS BASELINE PATIENT SEEMS TO BE HAVING TROUBLE REMEMBERING THINGS (8) Obstructive sleep apnea: Code(s): G47.33 - Obstructive sleep apnea (adult) (pediatric) Status: Chronic Assessment and Plan: CPAP AT NIGHTTIME HISTORY OF NONCOMPLIANCE (9
[2021-04-12] MEDS: FENOFIBRATE 160 MG TABLET PO (16:36)
[2021-04-12 16:48] LABS: Glucose Point of Care 265 mg/dl (65-105)
== END 2021-04-12 19:52 | disposition home health service (06) ==
LOC: ANHED 04-11 00:46 → ANH3MEDSUR 04-11 11:24
PROVIDERS: Emergency Medicine; Emergency Medicine Emergency Medical Services; Admitting Provider Internal Medicine; Emergency Provider Emergency Medicine; PCP Internal Medicine; Visit Provider Family Medicine
DX: R41.82 Altered mental status, unspecified (principal); R55 Syncope and collapse; S31.000A Unspecified open wound of lower back and pelvis without penetration into retroperitoneum, initial encounter; E11.40 Type 2 diabetes mellitus with diabetic neuropathy, unspecified; F32.9 Major depressive disorder, single episode, unspecified; I11.0 Hypertensive heart disease with heart failure; I50.30 Unspecified diastolic (congestive) heart failure; G47.33 Obstructive sleep apnea (adult) (pediatric); D72.829 Elevated white blood cell count, unspecified; E86.0 Dehydration; N20.0 Calculus of kidney; D64.9 Anemia, unspecified; J44.9 Chronic obstructive pulmonary disease, unspecified; F41.9 Anxiety disorder, unspecified; M10.9 Gout, unspecified; N40.0 Benign prostatic hyperplasia without lower urinary tract symptoms; W19.XXXA Unspecified fall, initial encounter; J30.2 Other seasonal allergic rhinitis; E66.9 Obesity, unspecified; Z68.35 Body mass index [BMI] 35.0-35.9, adult; D75.81 Myelofibrosis; K40.90 Unilateral inguinal hernia, without obstruction or gangrene, not specified as recurrent; R94.31 Abnormal electrocardiogram [ECG] [EKG]; Z86.711 Personal history of pulmonary embolism; Z86.73 Personal history of transient ischemic attack (TIA), and cerebral infarction without residual deficits; Z79.82 Long term (current) use of aspirin; Z87.891 Personal history of nicotine dependence; Z79.810 Long term (current) use of selective estrogen receptor modulators (SERMs); Z79.899 Other long term (current) drug therapy; Z79.4 Long term (current) use of insulin; Z79.51 Long term (current) use of inhaled steroids; Z79.84 Long term (current) use of oral hypoglycemic drugs
CPT/HCPCS: 36415; 36600; 70450; 71045; 74176; 80053; 81001; 82375; 82805; 82948; 83050; 83605; 85025; 85610; 85730; 86140; 86850; 86900; 86901; 87040; 93005; 96360; 96361; 96374; 96376; 97161; 99285; A9270; G0378; J1815; J7030

== ENCOUNTER 2021-06-04 17:36 | Inpatient (IN) | payer MEDICARE, SELFPAY ==
--- NOTE | ~2021-06-04 | CT_ITS ---
EXAMINATION: CT foot RT wo con DATE: 06/04/2021 23:06 INDICATION: Pain and inflammation of the right great toe. TECHNIQUE: Computed tomography (CT) of the right foot was performed without intravenous contrast. Aut omated exposure control and iterative reconstruction technique were employed. The dose-length product was 365.91 mGy-cm. COMPARISON: None FINDINGS: Bone alignment is normal. No fracture. There is mild osteoarthritis of the ankle joint, fir st metatarsophalangeal joint, and some of the interphalangeal joints. There is an ulcer of the distal great toe with subcutaneous gas. There are small erosions of the tuft of first distal phalanx, consi stent with osteomyelitis. Achilles tendon is enlarged, consistent with tendinopathy. There is a longi tudinal split tear of peroneus brevis tendon. There is widespread edema of the foot. IMPRESSION: 1. Osteomyelitis involving tuft of first distal phalanx. 2. Polyarticular osteoarthritis. 3. Achilles tendinopathy. 4. Longitudinal split tear of peroneus brevis tendon. Reviewed, dictated and finalized at location B.
[2021-06-04 17:52] VITALS: BP 132/58; PULSE 116; RESP 18; TEMP 36.7; O2SAT 96
[2021-06-04 18:02] LABS: Hematocrit 39.3 % (42.0-52.0); Hemoglobin 12.7 g/dL (14.0-18.0); Mean Corpuscular HGB Conc 32.3 g/dl (32-36); Mean Corpuscular Hemoglobin 30.6 pg (26-34); Mean Corpuscular Volume 94.7 fl (80-100); Mean Platelet Volume 10.5 fl (7.4-10.4); Platelet Count Result 587 k/mm3 (150-375); Red Blood Count 4.15 M/mm3 (4.6-6.20); White Blood Count 22.5 K/mm3 (4.5-10.0)
[2021-06-04 18:12] LABS: Anion Gap 7 mmol/L (8-16); Blood Urea Nitrogen 39 mg/dL (9-20); Calcium 9.3 mg/dL (8.4-10.2); Carbon Dioxide 26 mmol/L (22-30); Chloride 103 mmol/L (98-107); Estimated CRCL calculation 53 ml/min; Estimated Glomerular Filt Rate 48; Glucose 163 mg/dL (65-110); Potassium 4.3 mmol/L (3.4-5.0); Sodium 136 mmol/L (137-145)
[2021-06-04 18:28] LABS: Band Neutrophils Percent 1 % (0-6); Lymphocytes Absolute Manual 2.47 K/mm3 (1.1-4.5); Monocytes Absolute Manual 2.02 K/mm3 (0.1-0.90); Monocytes Percent Manual 9 % (3-9); Neutrophils Percent Manual 79 % (46-73); Platelet Estimate Increased (Adequate); Total Cells Counted 100
--- NOTE | 2021-06-04 21:42 | ED.GENADULT ---
HPI - General Adult General Chief complaint: Extremity Problem,Nontraumatic Stated complaint: sore toe, swelling Time Seen by Provider: 06/04/21 20:28 Source: patient Mode of arrival: ambulatory Limitations: no limitations History of Present Illness HPI narrative: 60-year-old with a history of hypertension, hyperlipidemia, CHF here with complaints of right great toe swelling and redness and drainage for past few days. Patient states that he has seen his camelid fiber sorter who advised him to come to the ER. Patient also complains of fever and chills. He denies any nausea, vomiting or abdominal pain. No history of any cough or shortness of breath. Onset (ago): week(s) (1) Location: lower extremity Severity: moderate Quality: aching Pain Consistency: constant Relieving factors: none Exacerbating factors: none Associated symptoms: fever/chills Related Data Home Medications Medication Instructions Recorded Confirmed fenofibrate 160 mg PO QPM 01/15/20 04/11/21 metformin 1,000 mg PO BID 01/15/20 04/11/21 tamsulosin 0.4 mg PO DAILY 01/15/20 04/11/21 albuterol sulfate 90 mcg/actuation 2 puff INHALATION Q4H PRN 11/08/20 04/11/21 aerosol inhaler allopurinol 100 mg tablet 100 mg PO DAILY 11/08/20 04/11/21 aspirin 81 mg tablet,delayed 81 mg PO DAILY 11/08/20 04/11/21 release budesonide-formoterol HFA 160 2 puff INHALATION Q12H 11/08/20 04/11/21 mcg-4.5 mcg/actuation aerosol inhaler cholecalciferol (vitamin D3) 1,250 1,250 mcg PO WEEKLY 11/08/20 04/11/21 mcg (50,000 unit) capsule finasteride 5 mg tablet 5 mg PO DAILY 11/08/20 04/11/21 insulin lispro 100 unit/mL See Rx Instructions .ROUTE .COMPLEX 11/08/20 04/11/21 subcutaneous solution midodrine 5 mg tablet See Rx Instructions .ROUTE 11/08/20 04/11/21 .COMPLEX tablet montelukast 10 mg tablet 10 mg PO HS 11/08/20 04/11/21 Trulicity 0.75 mg SUBCUT WEEKLY 04/11/21 04/11/21 baclofen 10 mg PO BID PRN 04/11/21 04/11/21 buspirone 15 mg PO BID 04/11/21 04/11/21 cyclobenzaprine 10 mg PO TID PRN 04/11/21 04/11/21 metoprolol succinate 12.5 mg PO BID 04/11/21 04/11/21 pravastatin 40 mg PO HS 04/11/21 04/11/21 pregabalin 100 mg PO BID 04/11/21 04/11/21 silver sulfadiazine [SSD] 1 applic TOPICAL BID 04/11/21 04/11/21 venlafaxine 37.5 mg PO BID 04/11/21 04/11/21 zolpidem 10 mg PO HS PRN 04/11/21 04/11/21 Allergies Allergy/AdvReac Type Severity Reaction Status Date / Time naproxen Allergy Intermediate SWELLING Verified 06/04/21 20:31 iohexol Allergy Unknown Verified 06/04/21 20:31 [From contrast - CT, X-RAY] morphine AdvReac Vomiting Verified 06/04/21 21:14 Review of Systems Review of Systems: All systems reviewed & are unremarkable except as noted in HPI and below Constitutional: Constitutional: Reports fever(s) Eyes: Eyes: Reports no additional eye complaints ENT: Reports system reviewed and no additional complaints, except as documented Cardiovascular: Cardiovascular: Reports no additional cardiovascular complaints Respiratory: Respiratory: Reports no additional respiratory complaints Gastrointestinal: Gastrointestinal: Reports no additional gastrointestinal complaints Musculoskeletal: Musculoskeletal: Reports as per HPI Integumentary/Breasts: Skin/Breast: Reports as per HPI and Reports skin ulcer (Right great toe) Neurologic: Reports system reviewed and no additional complaints, except as documented Endocrine: Endocrine: Reports no additional endocrine complaints [facility] Past Medical History Medical History Anemia Anxiety BPH (benign prostatic hyperplasia) Chronic UTI (~2019) Congestive heart failure Diastolic dysfunction CVA (cerebral vascular accident) (~2014) Depression DM2 (diabetes mellitus, type 2) Enterobacter sepsis UTI History of CVA (cerebrovascular accident) HTN (hypertension) with goal to be determined Left great toe amputee (~04/2020) Leg mass Right leg mass excised Migraines Myelof
[2021-06-04] MEDS: fentaNYL CITRATE INJ (*CRX) 100 MCG/2 ML VIAL 50 MCG IV PUSH ×2 (21:46→23:07)
[2021-06-04] MEDS: SODIUM CHLORIDE 0.9% IV 1,000 ML 100 ML IV CONT (21:47)
[2021-06-04 21:54] LABS: Lactic Acid Reflex 1.3 mmol/L (0.7-2.1)
--- NOTE | 2021-06-04 22:34 | PM.IMHP ---
H&P: HPI History of Present Illness Date/Time: 06/04/21 22:34 Chief Complaint: Right toe ulcer Narrative: This is a 60-year-old male with past medical history significant for type 2 diabetes mellitus insulin dependent, peripheral diabetic neuropathy, diabetic foot, hypertension, migraine headaches, obstructive sleep apnea, pulmonary embolism, depression, stroke, peripheral vascular disease. Patient presented to the emergency room today after he noticed a change in discoloration of his right toe base at the distal phalanx notice dark discoloration went to see his safety aide who in turn asked him to come to the emergency room. Patient has been his usual state of health up until this states that he did not notice any changes the days prior he had some chills some fevers has not been able to eat due to poor appetite. He denies any discharge from the toe ,no pain. Preliminary workup was significant for WBC count of 22,000 a BUN and creatinine of 39/1.5. Review of Systems Review of Systems: Chills fevers right toe discoloration Constitutional: Constitutional: Reports chills and Reports fever(s) Eyes: Eyes: Denies change in vision ENT: Denies dysphagia, Denies nasal congestion, Denies nasal discharge, Denies nasal obstruction and Denies odynophagia Cardiovascular: Cardiovascular: Denies chest pain, Denies radiating jaw, neck or arm pain, Denies palpitations and Denies dyspnea Respiratory: Respiratory: Denies cough and Denies dyspnea Gastrointestinal: Gastrointestinal: Denies abdominal pain, Denies dyspepsia, Reports nausea and Reports vomiting Genitourinary: Genitourinary: Reports no additional male genitourinary complaints Musculoskeletal: Comments: Right toe dark discoloration Integumentary/Breasts: Skin/Breast: Reports wounds (Right toe) Neurologic: Reports system reviewed and no additional complaints, except as documented Psychiatric: Psychiatric: Reports no additional psychiatric complaints Endocrine: Endocrine: Reports no additional endocrine complaints Hematologic/Lymphatic: Hematologic/Lymphatic: Reports no additional hematologic/lymphatic complaints Allergic/Immunologic: Allergic/Immunologic: Reports no additional allergic/immunologic complaints [facility] Past Medical History Medical History Anemia Anxiety BPH (benign prostatic hyperplasia) Chronic UTI (~2019) Congestive heart failure Diastolic dysfunction CVA (cerebral vascular accident) (~2014) Depression DM2 (diabetes mellitus, type 2) Enterobacter sepsis UTI History of CVA (cerebrovascular accident) HTN (hypertension) with goal to be determined Left great toe amputee (~04/2020) Leg mass Right leg mass excised Migraines Myelofibrosis Neuropathy Obstructive sleep apnea Noncompliant with CPAP Pulmonary embolism (~01/2020) Surgical History Surgical History H/O hernia repair H/O splenectomy (~08/2019) Hx of cholecystectomy Family History Family History Unknown Family history unknown Father , 75 Congestive heart failure Mother , 74 Brain bleed Sibling , Sister Cancer Social History Social History Social History: Patient is listed as a full code. Patient drinks 3 cups of caffeine daily Smoking packs per day: 1 Smoking cigarettes per day: 20.0 Years smoked: 20 Smoking pack-years: 20.00 Smoking status: Former smoker Tobacco type: cigarettes Smoking end date: 10/18/94 Additional smoking assessment comments: Pt denies that he was a smoker. Alcohol intake: never Drinks per week: 1 Substance use: never Substance use type: does not use Gender identity (if verbalized by the patient): Male Spiritual care concerns: No (Jew) Agree to blood products: Yes Meds Home Medica
[2021-06-04 23:14] VITALS: BP 173/75; PULSE 131; RESP 18; TEMP 39.1; O2SAT 96
[2021-06-04 23:15] LABS: Glucose Point of Care 198 mg/dl (65-105)
[2021-06-04 23:22] VITALS: TEMP 39.1
[2021-06-04] MEDS: ACETAMINOPHEN 325 MG TABLET 650 MG PO (23:22)
[2021-06-05] VITALS (10 sets, daily range): BP systolic 126–156; BP diastolic 54–62; PULSE 86–122; RESP 18–20; TEMP 36.2–37.6; O2SAT 92–100
--- NOTE | 2021-06-05 00:28 | ADMGEN ---
This patient, Jeremías Gaines, was admitted to [facility] Surg Room 317-02. Patient/family oriented to hospital policies and general routines including ID bracelet, bed and alarms, visiting hours, pain management, procedures, bathroom and other care routines, personal items, smoking policy, room service/diet, and visiting hours. Information on how to activate the Rapid Response Team has been discussed. Patient/Family are encouraged to report perceived risks to care and to ask questions if they do not understand what they are told or what they should do.
[2021-06-05] MEDS: HYDROmorphone HCL INJ (*CRX) 1 MG/ML SYR IV PUSH ×4 (00:49→18:45)
[2021-06-05] MEDS: MONTELUKAST SODIUM 10 MG TABLET PO ×2 (00:50→21:48)
[2021-06-05] MEDS: PRAVASTATIN SODIUM 20 MG TABLET 40 MG PO ×2 (00:50→21:48)
--- NOTE | 2021-06-05 01:51 | PC.NURSE ---
patient is a poor historian with medical history. When asked what his medical history is he kept contradicting himself.
[2021-06-05] MEDS: METOPROLOL TARTRATE 25 MG TABLET PO (02:14)
[2021-06-05 02:27] LABS: Glucose Point of Care 217 mg/dl (65-105)
[2021-06-05 06:26] LABS: Basophils Absolute Auto 0.2 K/mm3 (0.0-0.1); Basophils Percent Auto 0.8 % (0.2-1.2); Eosinophils Absolute Auto 0.2 K/mm3 (0-0.3); Eosinophils Percent Auto 1.1 % (0-4.4); Hematocrit 38.1 % (42.0-52.0); Hemoglobin 12.3 g/dL (14.0-18.0); Immature Granulocyte Absolute 0.21 K/mm3 (0.00-0.031); Immature Granulocyte Percent A 1.1 % (0-0.5); Lymphocytes Absolute Auto 2.32 K/mm3 (0.9-3.2); Lymphocytes Percent Auto 11.7 % (18.3-44.2); Mean Corpuscular HGB Conc 32.3 g/dl (32-36); Mean Corpuscular Hemoglobin 30.6 pg (26-34); Mean Corpuscular Volume 94.8 fl (80-100); Mean Platelet Volume 10.6 fl (7.4-10.4); Monocytes Absolute Auto 1.6 K/mm3 (0.1-0.6); Neutrophils Absolute Auto 15.3 K/mm3 (1.3-6.7); Neutrophils Percent Auto 77.3 % (45.5-73.1); Nucleated Red Blood Cells Perc 0.2 % (0.0-0.2); Platelet Count Result 582 k/mm3 (150-375); Red Blood Count 4.02 M/mm3 (4.6-6.20); Red Cell Distribution Width 12.9 % (11.5-14.5); White Blood Count 19.8 K/mm3 (4.5-10.0)
[2021-06-05 06:39] LABS: Anion Gap 7 mmol/L (8-16); Blood Urea Nitrogen 34 mg/dL (9-20); Calcium 8.9 mg/dL (8.4-10.2); Carbon Dioxide 22 mmol/L (22-30); Chloride 103 mmol/L (98-107); Estimated CRCL calculation 49 ml/min; Estimated Glomerular Filt Rate 44; Glucose 351 mg/dL (65-110); Potassium 4.8 mmol/L (3.4-5.0); Sodium 132 mmol/L (137-145)
[2021-06-05 07:55] LABS: Glucose Point of Care 337 mg/dl (65-105)
[2021-06-05] MEDS: INSULIN ASPART (*BKC) 100 UNITS/ML SUB-Q ×3 (08:07→17:07)
[2021-06-05] MEDS: allopurinoL 100 MG TABLET PO (08:14)
[2021-06-05] MEDS: LORATADINE 10 MG TABLET PO (08:15)
[2021-06-05] MEDS: busPIRone HCL 5 MG TABLET 15 MG PO ×2 (08:15→17:09)
[2021-06-05] MEDS: FINASTERIDE 5 MG TABLET PO (08:15)
[2021-06-05] MEDS: VENLAFAXINE HCL 37.5 MG TABLET PO ×2 (08:15→17:11)
[2021-06-05] MEDS: HEPARIN SODIUM 5,000 UNITS/ML VIAL 5000 UNITS SUB-Q ×2 (08:15→21:48)
[2021-06-05] MEDS: ASPIRIN 81 MG ENTERIC TABLET PO (08:15)
[2021-06-05] MEDS: PANTOPRAZOLE 40 MG TABLET PO (08:16)
[2021-06-05] MEDS: METOPROLOL SUCCINATE EXT REL 12.5 MG TABCR PO ×2 (08:16→17:10)
[2021-06-05] MEDS: MIDODRINE HCL 2.5 MG TABLET 5 MG BY MOUTH ×2 (08:16→13:10)
[2021-06-05] MEDS: MAGNESIUM OXIDE 400 MG TABLET PO (08:16)
[2021-06-05] MEDS: TAMSULOSIN HCL 0.4 MG CAPSULE PO (08:16)
[2021-06-05] MEDS: PREGABALIN (*CRX) 50 MG CAPSULE 100 MG PO ×2 (08:21→17:10)
[2021-06-05] MEDS: INSULIN GLARGINE (*BKC) 100 UNITS/ML 20 UNITS SUB-Q (08:22)
[2021-06-05 11:54] LABS: Glucose Point of Care 366 mg/dl (65-105)
[2021-06-05] MEDS: ACETAMINOPHEN 325 MG TABLET 650 MG PO (13:09)
[2021-06-05 15:18] LABS: Glucose Point of Care 300 mg/dl (65-105)
[2021-06-05 16:56] LABS: Glucose Point of Care 260 mg/dl (65-105)
[2021-06-05] MEDS: FENOFIBRATE 160 MG TABLET PO (17:12)
--- NOTE | 2021-06-05 17:23 | PM.IMPN ---
Progress Note: A&P Assessment and Plan (1) Dry gangrene: Code(s): I96 - Gangrene, not elsewhere classified Status: Acute Assessment and Plan: Right toe CT of the foot Id and surgery consult Await cultures 06/05/21 17:23 Chief Complaint: Right toe ulcer Narrative: This is a 60-year-old male with past medical history significant for type 2 diabetes mellitus insulin dependent, peripheral diabetic neuropathy, diabetic foot, hypertension, migraine headaches, obstructive sleep apnea, pulmonary embolism, depression, stroke, peripheral vascular disease. Patient presented to the emergency room today after he noticed a change in discoloration of his right toe base at the distal phalanx notice dark discoloration went to see his sales agent [employer] who in turn asked him to come to the emergency room. Patient has been his usual state of health up until this states that he did not notice any changes the days prior he had some chills some fevers has not been able to eat due to poor appetite. He denies any discharge from the toe ,no pain. Preliminary workup was significant for WBC count of 22,000 a BUN and creatinine of 39/1.5. patient with a right toe diabetic ulcer patient being treated with Cefepime and vancomycin wound and blood cultures are collected, patient will be seen by ID and General surgery service and further recommendation to follow, the PT OT evaluate the patient will continue to monitor (2) Diabetic foot: Code(s): E11.8 - Type 2 diabetes mellitus with unspecified complications Status: Acute Assessment and Plan: Left side Continue Unna boot (3) Insulin dependent diabetes mellitus: Status: Acute Assessment and Plan: Patient is on insulin Accu-Cheks AC and HS Carb consistent diet (4) Congestive heart failure: Qualifiers: Heart failure chronicity: chronic Heart failure type: diastolic Qualified Code(s): I50.32 - Chronic diastolic (congestive) heart failure Code(s): I50.9 - Heart failure, unspecified Status: Chronic Assessment and Plan: Appears to be euvolemic Daily intake and output Continue to monitor (5) Obstructive sleep apnea: Code(s): G47.33 - Obstructive sleep apnea (adult) (pediatric) Status: Chronic Assessment and Plan: Patient is on CPAP Continue CPAP at bedtime (6) HTN (hypertension) with goal to be determined: Code(s): I10 - Essential (primary) hypertension Status: Chronic Assessment and Plan: Continue home meds (7) Renal insufficiency: Code(s): N28.9 - Disorder of kidney and ureter, unspecified Status: Acute Assessment and Plan: BUN and creatinine at patient's baseline Continue to monitor (8) History of CVA (cerebrovascular accident): Code(s): Z86.73 - Personal history of transient ischemic attack (TIA), and cerebral infarction without residual deficits Status: Chronic Assessment and Plan: Continue statin Subjective Date/time seen: 06/05/21 17:23 Chief Complaint: Right toe ulcer Narrative: This is a 60-year-old male with past medical history significant for type 2 diabetes mellitus insulin dependent, peripheral diabetic neuropathy, diabetic foot, hypertension, migraine headaches, obstructive sleep apnea, pulmonary embolism, depression, stroke, peripheral vascular disease. Patient presented to the emergency room today after he noticed a change in discoloration of his right toe base at the distal phalanx notice dark discoloration went to see his sales agent [employer] who in turn asked him to come to the emergency room. Patient has been his usual state of health up until this states that he did not notice any changes the days prior he had some chills some fevers has not been able to eat due to poor appetite. He denies any discharge from the toe ,no pain. Preliminary workup was significant for WBC count of 22,000 a BUN and creatinine of 39/1.5. patient with a right toe diabet
[2021-06-05 22:07] LABS: Glucose Point of Care 308 mg/dl (65-105)
[2021-06-06] MEDS: HYDROmorphone HCL INJ (*CRX) 1 MG/ML SYR IV PUSH ×3 (04:06→22:34)
[2021-06-06 06:00] VITALS: BP 141/70; PULSE 93; RESP 20; TEMP 36.5; O2SAT 90
[2021-06-06 07:35] LABS: Basophils Absolute Auto 0.1 K/mm3 (0.0-0.1); Basophils Percent Auto 0.8 % (0.2-1.2); Eosinophils Absolute Auto 0.6 K/mm3 (0-0.3); Eosinophils Percent Auto 3.5 % (0-4.4); Hematocrit 40.9 % (42.0-52.0); Immature Granulocyte Absolute 0.21 K/mm3 (0.00-0.031); Immature Granulocyte Percent A 1.2 % (0-0.5); Lymphocytes Absolute Auto 2.87 K/mm3 (0.9-3.2); Mean Corpuscular HGB Conc 31.8 g/dl (32-36); Mean Corpuscular Hemoglobin 29.9 pg (26-34); Mean Platelet Volume 10.8 fl (7.4-10.4); Monocytes Absolute Auto 1.8 K/mm3 (0.1-0.6); Monocytes Percent Auto 10.1 % (2.6-8.5); Neutrophils Absolute Auto 12.3 K/mm3 (1.3-6.7); Neutrophils Percent Auto 68.4 % (45.5-73.1); Nucleated Red Blood Cells Perc 0.2 % (0.0-0.2); Platelet Count Result 609 k/mm3 (150-375); Red Blood Count 4.35 M/mm3 (4.6-6.20); Red Cell Distribution Width 12.7 % (11.5-14.5)
[2021-06-06 07:42] LABS: Anion Gap 6 mmol/L (8-16); Blood Urea Nitrogen 36 mg/dL (9-20); Calcium 9.4 mg/dL (8.4-10.2); Carbon Dioxide 24 mmol/L (22-30); Chloride 100 mmol/L (98-107); Estimated CRCL calculation 53 ml/min; Estimated Glomerular Filt Rate 48; Glucose 253 mg/dL (65-110); Potassium 4.4 mmol/L (3.4-5.0); Sodium 130 mmol/L (137-145)
[2021-06-06] MEDS: INSULIN ASPART (*BKC) 100 UNITS/ML SUB-Q ×3 (07:49→17:46)
[2021-06-06 07:59] LABS: Glucose Point of Care 243 mg/dl (65-105)
[2021-06-06] MEDS: ACETAMINOPHEN 325 MG TABLET 650 MG PO ×2 (08:52→16:38)
[2021-06-06] MEDS: MAGNESIUM OXIDE 400 MG TABLET PO (09:02)
[2021-06-06] MEDS: ASPIRIN 81 MG ENTERIC TABLET PO (09:02)
[2021-06-06] MEDS: LORATADINE 10 MG TABLET PO (09:02)
[2021-06-06] MEDS: MIDODRINE HCL 2.5 MG TABLET 5 MG BY MOUTH ×2 (09:02→14:37)
[2021-06-06] MEDS: PANTOPRAZOLE 40 MG TABLET PO (09:02)
[2021-06-06 09:03] VITALS: PULSE 64
[2021-06-06] MEDS: TAMSULOSIN HCL 0.4 MG CAPSULE PO (09:03)
[2021-06-06] MEDS: METOPROLOL SUCCINATE EXT REL 12.5 MG TABCR PO ×2 (09:03→18:57)
[2021-06-06] MEDS: FINASTERIDE 5 MG TABLET PO (09:03)
[2021-06-06] MEDS: allopurinoL 100 MG TABLET PO (09:04)
[2021-06-06] MEDS: VENLAFAXINE HCL 37.5 MG TABLET PO ×2 (09:04→18:58)
[2021-06-06] MEDS: busPIRone HCL 5 MG TABLET 15 MG PO ×2 (09:04→18:57)
[2021-06-06] MEDS: HEPARIN SODIUM 5,000 UNITS/ML VIAL 5000 UNITS SUB-Q ×2 (09:05→21:36)
[2021-06-06] MEDS: INSULIN GLARGINE (*BKC) 100 UNITS/ML 20 UNITS SUB-Q (09:30)
[2021-06-06] MEDS: PREGABALIN (*CRX) 50 MG CAPSULE 100 MG PO ×2 (09:30→18:54)
[2021-06-06] MEDS: ALBUTEROL SULFATE (*SP) AEROSOL 1 PUFF 2 PUFF INHALATION (09:36)
--- NOTE | 2021-06-06 14:34 | PM.IMPN ---
Progress Note: A&P Assessment and Plan (1) Dry gangrene: Code(s): I96 - Gangrene, not elsewhere classified Status: Acute Assessment and Plan: Right toe CT of the foot Id and surgery consult Await cultures 06/05/21 17:23 Chief Complaint: Right toe ulcer Narrative: This is a 60-year-old male with past medical history significant for type 2 diabetes mellitus insulin dependent, peripheral diabetic neuropathy, diabetic foot, hypertension, migraine headaches, obstructive sleep apnea, pulmonary embolism, depression, stroke, peripheral vascular disease. Patient presented to the emergency room today after he noticed a change in discoloration of his right toe base at the distal phalanx notice dark discoloration went to see his pest control operator who in turn asked him to come to the emergency room. Patient has been his usual state of health up until this states that he did not notice any changes the days prior he had some chills some fevers has not been able to eat due to poor appetite. He denies any discharge from the toe ,no pain. Preliminary workup was significant for WBC count of 22,000 a BUN and creatinine of 39/1.5. 06/06/21 14:34 patient with a right toe diabetic ulcer patient being treated with Cefepime and vancomycin wound and blood cultures are collected, patient will be seen by ID and General surgery service and further recommendation to follow, the PT OT evaluate the patient will continue to monitor. 06/06 patient remains clinically stable, has no new complaints, blood culture no growth so far, wound culture is growing Staphylococcus aureus and group B Streptococcus. awaiting consultation from ID and general surgeon, will continue to monitor and further recommendation to follow (2) Diabetic foot: Code(s): E11.8 - Type 2 diabetes mellitus with unspecified complications Status: Acute Assessment and Plan: Left side Continue Unna boot (3) Insulin dependent diabetes mellitus: Status: Acute Assessment and Plan: Patient is on insulin Accu-Cheks AC and HS Carb consistent diet (4) Congestive heart failure: Qualifiers: Heart failure type: diastolic Heart failure chronicity: chronic Qualified Code(s): I50.32 - Chronic diastolic (congestive) heart failure Code(s): I50.9 - Heart failure, unspecified Status: Chronic Assessment and Plan: Appears to be euvolemic Daily intake and output Continue to monitor (5) Obstructive sleep apnea: Code(s): G47.33 - Obstructive sleep apnea (adult) (pediatric) Status: Chronic Assessment and Plan: Patient is on CPAP Continue CPAP at bedtime (6) HTN (hypertension) with goal to be determined: Code(s): I10 - Essential (primary) hypertension Status: Chronic Assessment and Plan: Continue home meds (7) Renal insufficiency: Code(s): N28.9 - Disorder of kidney and ureter, unspecified Status: Acute Assessment and Plan: BUN and creatinine at patient's baseline Continue to monitor (8) History of CVA (cerebrovascular accident): Code(s): Z86.73 - Personal history of transient ischemic attack (TIA), and cerebral infarction without residual deficits Status: Chronic Assessment and Plan: Continue statin Subjective Date/time seen: 06/06/21 14:34 patient with a right toe diabetic ulcer patient being treated with Cefepime and vancomycin wound and blood cultures are collected, patient will be seen by ID and General surgery service and further recommendation to follow, the PT OT evaluate the patient will continue to monitor. 06/06 patient remains clinically stable, has no new complaints, blood culture no growth so far, wound culture is growing Staphylococcus aureus and group B Streptococcus. awaiting consultation from ID and general surgeon, will continue to monitor and further recommendation to follow Review of Systems Review of Systems: All systems reviewed & ar
[2021-06-06 14:46] LABS: Glucose Point of Care 342 mg/dl (65-105)
--- NOTE | 2021-06-06 14:52 | WPDINFPN2 ---
Progress Note: A&P Assessment and Plan (1) Diabetic foot: Code(s): E11.8 - Type 2 diabetes mellitus with unspecified complications Status: Acute Assessment and Plan: 1. Diabetic foot infection with acute OM of R 1st distal phalanx and gangrene 2. Chronic leukocytosis, due to splenectomy and myelofibrosis 3. DM with PN REC PipTazo # 1. Surgery to see, though I think distal phalanx amputation is indicated for optimal treatment. If done, anticipate 4 weeks IV therapy. Subjective Date/time seen: 06/06/21 14:52 Objective Data Vital Signs Vital Signs: Vital Signs - 24 hr 06/05/21 17:10 06/05/21 20:48 06/05/21 22:00 Temperature 36.2 C L Pulse Rate 114 H 86 94 Respiratory Rate 20 Blood Pressure 142/62 H Pulse Oximetry 94 94 06/06/21 06:00 06/06/21 09:03 Temperature 36.5 C Pulse Rate 93 64 Respiratory Rate 20 Blood Pressure 141/70 H Pulse Oximetry 90 Intake/Output Intake/Output: Intake & Output 06/03/21 06/04/21 06/05/21 06/06/21 23:59 23:59 23:59 23:59 Intake Total 50 4720 1340 Output Total 900 675 Balance 50 3820 665 Meds/Results Medications: Active Medications Generic Name Dose Route Start Last Admin Trade Name Freq PRN Reason Stop Dose Admin Acetaminophen 650 mg 06/04/21 21:39 06/06/21 08:52 Acetaminophen 325 Mg Tablet PO 650 mg Q4H PRN Administration Mild Pain (1-3) or Fever Albuterol 2 puff 06/04/21 22:54 06/06/21 09:36 Albuterol Sulfate (*Sp) Aerosol 1 Puff INHALATION 2 puff Q4H PRN Administration Shortness Of Breath Or Wheezing Allopurinol 100 mg 06/05/21 08:00 06/06/21 09:04 Allopurinol 100 Mg Tablet PO 100 mg DAILY@0800 CINDI Administration Aspirin 81 mg 06/05/21 09:00 06/06/21 09:02 Aspirin 81 Mg Enteric Tablet PO 81 mg DAILY CINDI Administration Baclofen 10 mg 06/04/21 22:54 Baclofen 10 Mg Tablet PO BID PRN Muscle Spasm Budesonide/Formoterol Fumarate 2 puff 06/04/21 23:20 06/06/21 09:35 Budesonide/Form 160-4.5 Mcg (*Sp) INHALATION 2 puff Q12HRT CINDI Administration Buspirone HCl 15 mg 06/05/21 09:00 06/06/21 09:04 Buspirone Hcl 5 Mg Tablet PO 15 mg BID CINDI Administration Ergocalciferol 50,000 unit 06/16/21 09:00 Ergocalciferol 50,000 Unit Capsule PO Mo@0900 CINDI Fenofibrate 160 mg 06/05/21 18:00 06/05/21 17:12 Fenofibrate 160 Mg Tablet PO 160 mg QPM CINDI Administration Finasteride 5 mg 06/05/21 09:00 06/06/21 09:03 Finasteride 5 Mg Tablet PO 5 mg DAILY CINDI Administration Heparin Sodium (Porcine) 5,000 units 06/05/21 09:00 06/06/21 09:05 Heparin Sodium 5,000 Units/Ml Vial SUB-Q 5,000 units Q12HR CINDI Administration Hydromorphone HCl 1 mg 06/05/21 00:13 06/06/21 04:06 Hydromorphone Hcl Inj (*Crx) 1 Mg/Ml Syr IV PUSH 1 mg Q3H PRN Administration Pain Rated 7-10 Cefepime HCl 1 gm in 50 mls @ 100 mls/hr 06/05/21 09:00 06/06/21 09:32 Maxipime 1 Gm/D5w 50 Ml IVPB 100 mls/hr Q12HR CINDI Administration Vancomycin HCl 1,500 mg in 500 mls @ 333.333 mls/hr 06/05/21 17:00 06/06/21 14:48 Vancomycin 1,500 Mg/D5w 500 Ml IVPB 333.33 mls/hr Q18H CINDI Administration Insulin Aspart 3 - 6 units 06/05/21 08:00 06/06/21 13:48 Insulin Aspart (*Bkc) 100 Units/Ml SUB-Q 5 units TIDWM CINDI Administration Protocol Insulin Glargine 20 units 06/05/21 09:00 06/06/21 09:30 Insulin Glargine (*Bkc) 100 Units/Ml SUB-Q 20 units QAM CINDI Administration Loratadine 10 mg 06/05/21 09:00 06/06/21 09:02 Loratadine 10 Mg Tablet PO 10 mg QAM CINDI Administration Magnesium Oxide 400 mg 06/05/21 09:00 06/06/21 09:02 Magnesium Oxide 400 Mg Tablet PO 400 mg QAM CINDI Administration Metoprolol Succinate 12.5 mg 06/05/21 09:00 06/06/21 09:03 Metoprolol Succinate Ext Rel 12.5 Mg Tabcr PO 12.5 mg BID CINDI Administration Midodrine 5 mg 06/05/21 09:00 06/06/21 14:37 Midodri
[2021-06-06 16:57] VITALS: BP 130/61; PULSE 105; RESP 12; TEMP 36.9; O2SAT 100
[2021-06-06 17:53] LABS: Glucose Point of Care 294 mg/dl (65-105)
[2021-06-06 18:57] VITALS: PULSE 73
[2021-06-06] MEDS: FENOFIBRATE 160 MG TABLET PO (19:09)
--- NOTE | 2021-06-06 20:45 | CONS_ITS ---
DATE OF CONSULTATION: 06/06/2021 REASON FOR CONSULTATION: Osteomyelitis. HISTORY OF PRESENT ILLNESS: A 60-year-old male, who reminds me that I had seen him in the past at [facility]. He has had a previous amputation left 1st distal phalanx for osteomyelitis. He saw his asphalt mixing machine operator on day of admission, who recommended evaluation in the emergency room. This was accomplished on the . He was admitted. He has been given cefepime, vancomycin, consultation requested. The patient has been on no previous antibiotics, was here in the hospital for several weeks in January with a COPD exacerbation. He saw his asphalt mixing machine operator due to discoloration of the distal phalanx of the right 1st toe, which have concerned him. The patient thinks he was febrile at home, but did not take his temperature. Does not know peripheral neuropathy. No events here in the hospital. ALLERGIES: NONE PERTINENT. HABITS: No tobacco currently and no alcohol. PRESENT MEDICATIONS: No immunosuppressants. PAST MEDICAL HISTORY: Myelofibrosis requiring splenectomy almost 2 years ago. He is on no therapy for the myelofibrosis currently. He has history of hernia repair, cholecystectomy, pulmonary embolism, HECTOR, migraine headaches, hypertension, stroke, Enterobacter UTI, type 2 diabetes mellitus, depression, diastolic heart failure, BPH, anxiety, anemia. FAMILY HISTORY: Not pertinent to his present illness. SOCIAL HISTORY: No family at the bedside. Lives locally. REVIEW OF SYSTEMS: Skin abrasions, anorexia. 14-point review otherwise negative. PHYSICAL EXAMINATION: GENERAL: Middle aged male, who appears his actual age, in no distress. VITAL SIGNS: Shortly after arrival T-max 39.1, afebrile past 24 hours, 93, 20, 141/70, 94% room air. SKIN: Lao abrasions. No ulcers except as below. Warm and dry. No rashes. EENT: Pupils equal, round, and reactive to light. The oropharynx, oral mucosa normal. Teeth in good repair. No paranasal sinus erythema, edema, tenderness. NECK: No meningismus, mass, tenderness. LUNGS: Clear to auscultation and percussion. Good air entry. CARDIAC: Regular rate and rhythm without murmurs or gallops. Dorsalis pedis pulses are 1+. Radial pulses 2+. ABDOMEN: No bruits. No organomegaly. Nontender. No masses. EXTREMITIES: Left first toe partial amputation as expected. No evidence of infection. On the right, he has a 2 cm area of dry gangrene of the distal phalanx tip with erythema and edema extending into the remainder of the toe and into the dorsum of the foot medially distally. LABORATORY DATA: Reviewed. His past white blood cell count was 22.5 on arrival, 18.0 today, hemoglobin 13.0, platelets are 609. Differential mildly abnormal. I reviewed chemistry with mild hyponatremia. BUN 36, creatinine 1.5, similar to previous, glucose 253. Hemoglobin A1c 8.3% on 01/16/2020. A superficial swab of his toe with Staph aureus and group B strep. Blood cultures, no growth so far. RADIOLOGY DATA: Foot CT shows osteomyelitis findings on distal phalanx right 1st toe. ASSESSMENT: 1. Gangrene, cellulitis and acute osteomyelitis of the distal phalanx with extension of soft tissue infection into the remainder of his toe and into the foot. Above organisms have been isolated and both are potential pathogens for deep space infection. However, they do not reliably indicate the causative agent of his bone infection. 2. Chronic leukocytosis due to splenectomy, myelofibrosis, perhaps in part due to his acute infection, but not primarily and we cannot use his white blood cell count to track progress of his infection. 3. Previous partial toe amputation, opposite side. 4. Mild renal insufficiency. RECOMMENDATIONS: 1. Piperacillin tazobactam. 2. Surgery to see
[2021-06-06] MEDS: PRAVASTATIN SODIUM 20 MG TABLET 40 MG PO (21:38)
[2021-06-06] MEDS: MONTELUKAST SODIUM 10 MG TABLET PO (21:38)
[2021-06-06 21:50] VITALS: BP 128/36; PULSE 106; RESP 20; TEMP 36.7; O2SAT 95
[2021-06-06 23:07] LABS: Glucose Point of Care 247 mg/dl (65-105)
[2021-06-07] MEDS: HYDROmorphone HCL INJ (*CRX) 1 MG/ML SYR IV PUSH ×4 (02:47→20:01)
[2021-06-07 05:50] VITALS: BP 142/64; PULSE 113; RESP 20; TEMP 36.9; O2SAT 90
[2021-06-07 07:13] LABS: Anion Gap 8 mmol/L (8-16); Blood Urea Nitrogen 30 mg/dL (9-20); Calcium 9.2 mg/dL (8.4-10.2); Carbon Dioxide 22 mmol/L (22-30); Chloride 101 mmol/L (98-107); Estimated CRCL calculation 53 ml/min; Estimated Glomerular Filt Rate 48; Glucose 193 mg/dL (65-110); Potassium 4.9 mmol/L (3.4-5.0); Sodium 131 mmol/L (137-145)
[2021-06-07 07:43] LABS: Glucose Point of Care 171 mg/dl (65-105)
[2021-06-07] MEDS: INSULIN GLARGINE (*BKC) 100 UNITS/ML 25 UNITS SUB-Q (08:20)
[2021-06-07] MEDS: allopurinoL 100 MG TABLET PO (08:21)
[2021-06-07 08:22] VITALS: PULSE 100
[2021-06-07] MEDS: METOPROLOL SUCCINATE EXT REL 12.5 MG TABCR PO ×2 (08:22→16:51)
[2021-06-07] MEDS: LORATADINE 10 MG TABLET PO (08:22)
[2021-06-07] MEDS: MAGNESIUM OXIDE 400 MG TABLET PO (08:23)
[2021-06-07] MEDS: VENLAFAXINE HCL 37.5 MG TABLET PO ×2 (08:23→16:48)
[2021-06-07] MEDS: busPIRone HCL 5 MG TABLET 15 MG PO ×2 (08:23→16:48)
[2021-06-07] MEDS: FINASTERIDE 5 MG TABLET PO (08:23)
[2021-06-07] MEDS: MIDODRINE HCL 2.5 MG TABLET 5 MG BY MOUTH ×2 (08:23→16:48)
[2021-06-07] MEDS: PANTOPRAZOLE 40 MG TABLET PO (08:23)
[2021-06-07] MEDS: ASPIRIN 81 MG ENTERIC TABLET PO (08:23)
[2021-06-07] MEDS: TAMSULOSIN HCL 0.4 MG CAPSULE PO (08:23)
[2021-06-07] MEDS: HEPARIN SODIUM 5,000 UNITS/ML VIAL 5000 UNITS SUB-Q ×2 (08:24→20:04)
[2021-06-07] MEDS: PREGABALIN (*CRX) 50 MG CAPSULE 100 MG PO (08:27)
[2021-06-07 08:30] LABS: Basophils Absolute Auto 0.1 K/mm3 (0.0-0.1); Basophils Percent Auto 0.6 % (0.2-1.2); Eosinophils Absolute Auto 0.8 K/mm3 (0-0.3); Eosinophils Percent Auto 4.2 % (0-4.4); Hemoglobin 12.3 g/dL (14.0-18.0); Immature Granulocyte Percent A 1.5 % (0-0.5); Lymphocytes Absolute Auto 2.57 K/mm3 (0.9-3.2); Mean Corpuscular HGB Conc 32.4 g/dl (32-36); Mean Corpuscular Hemoglobin 30.5 pg (26-34); Mean Corpuscular Volume 94.3 fl (80-100); Mean Platelet Volume 10.9 fl (7.4-10.4); Monocytes Absolute Auto 1.6 K/mm3 (0.1-0.6); Monocytes Percent Auto 8.3 % (2.6-8.5); Neutrophils Absolute Auto 14.3 K/mm3 (1.3-6.7); Neutrophils Percent Auto 72.4 % (45.5-73.1); Nucleated Red Blood Cells Absolute Auto 0.1 K/mm3 (0.0-0.012); Nucleated Red Blood Cells Perc 0.4 % (0.0-0.2); Platelet Count Result 600 k/mm3 (150-375); Red Blood Count 4.03 M/mm3 (4.6-6.20); Red Cell Distribution Width 12.7 % (11.5-14.5); White Blood Count 19.8 K/mm3 (4.5-10.0)
--- NOTE | 2021-06-07 09:41 | PM.CNGS ---
Assessment and Plan Assessment and plan (1) Osteomyelitis of great toe of right foot: Code(s): M86.9 - Osteomyelitis, unspecified Status: Acute Assessment and Plan: agree with Dr. lu, right great toe infection very unlikely to heal without great toe amputation. Currently he has only dry gangrene evident. Plan to proceed with right great toe amputation this week. Continue IV Zosyn antibiotics for now. Patient has good pulses and I would expect this to heal without difficulty. Antibiotic therapy planned after amputation for several weeks. (2) Diabetic foot infection: Code(s): E11.628 - Type 2 diabetes mellitus with other skin complications; L08.9 - Local infection of the skin and subcutaneous tissue, unspecified Status: Acute Assessment and Plan: See above. Patient has history of noncompliance. (3) Leukocytosis: Qualifiers: Leukocytosis type: unspecified Qualified Code(s): D72.829 - Elevated white blood cell count, unspecified Code(s): D72.829 - Elevated white blood cell count, unspecified Status: Chronic Assessment and Plan: Due to myelofibrosis and splenectomy. Not a reliable indicator of infection or its course. (4) Insulin dependent diabetes mellitus: Status: Chronic (5) Obstructive sleep apnea: Code(s): G47.33 - Obstructive sleep apnea (adult) (pediatric) Status: Chronic (6) Congestive heart failure: Qualifiers: Heart failure type: diastolic Heart failure chronicity: chronic Qualified Code(s): I50.32 - Chronic diastolic (congestive) heart failure Code(s): I50.9 - Heart failure, unspecified Status: Chronic (7) History of CVA (cerebrovascular accident): Code(s): Z86.73 - Personal history of transient ischemic attack (TIA), and cerebral infarction without residual deficits Status: Chronic History of Present Illness Consult details Consult date: 06/07/21 Reason for consult: other ( Infected right great toe) Requesting physician: Rolando Gomez MD Narrative: patient is a 60-year-old diabetic man who was in the emergency room on the night of June 04 with swelling pain and discomfort in his right great toe. He had a temperature of a 102?. He saw his ramp supervisor who recommended he come to the hospital. He was initially treated with cefepime and vancomycin. This has been changed to Zosyn. He had a CT scan of the foot which showed the distal phalanx to have erosions consistent with osteomyelitis. We were consulted to see the patient regarding diabetic toe infection, osteomyelitis of the distal phalanx. Although notes suggest we were consulted earlier, we were not notified of this consultation until last night. Patient denies any further fever or any pain associated with his right foot. He does have diabetic neuropathy. He reports an amputation of great toe on the left foot. he has multiple other medical problems including previous stroke in 2014, insulin-dependent diabetes, hypertension, obstructive sleep apnea, myelofibrosis, congestive heart failure, and history of pulmonary embolism January 2020. He had splenectomy for myelofibrosis nearly 2 years ago and does run a chronically elevated white blood cell count. He was admitted here with sepsis and pneumonia with acute respiratory failure at the end of December 2020. He seen now in consultation. Review of Systems Review of Systems: All systems reviewed & are unremarkable except as noted in HPI and below Constitutional: Constitutional: Reports as per HPI, Reports chills and Reports fever(s) Cardiovascular: Cardiovascular: Denies chest pain, Denies diaphoresis, Denies dyspnea and Denies paroxysmal nocturnal dyspnea Respiratory: Respiratory: Denies chest congestion, Denies cough and Denies dyspnea Integumentary/Breasts: Skin/Breast: Denies lesions and Denies rash Hematologic/Lymphatic: Hematologic/Lymphatic: Reports as per HPI and Reports othe
--- NOTE | 2021-06-07 10:28 | PC.NURSE ---
Addendum entered by Janell Armando RN 06/07/21 10:51: Nurse elevated left elbow and arm on pillow. Pt arm was then pat dry with wash cloths. Nurse continued to monitor Original Note: On 06/06/2021 at 0932 pt received Cefepime 1gm/D5w 50 ml to left arm. Cefepime was infused for 30 minutes. pt used the call light to inform that Cefepime was finished infusing and then c/o blisters to left arm. Nurse assessed left arm and noted that blisters were on arm and were weeping. Nurse immediately notified the physician. Physician assessed the left arm and gave orders to continue to monitor. IV on left arm was then discontinued.
[2021-06-07 11:41] LABS: Glucose Point of Care 231 mg/dl (65-105)
[2021-06-07] MEDS: INSULIN ASPART (*BKC) 100 UNITS/ML SUB-Q ×2 (11:47→19:04)
--- NOTE | 2021-06-07 13:43 | PM.IMPN ---
Progress Note: A&P Assessment and Plan (1) Dry gangrene: Code(s): I96 - Gangrene, not elsewhere classified Status: Acute Assessment and Plan: Right first toe Surgery to proceed with amputation Continue Zosyn (2) Diabetic foot: Code(s): E11.8 - Type 2 diabetes mellitus with unspecified complications Status: Acute Assessment and Plan: Left side Continue Unna boot 06/07 Increased pregabalin to 200mg bid. (3) Insulin dependent diabetes mellitus: Status: Chronic Assessment and Plan: 06/07 increased Lantus from 20 to 25 U daily Accu-Cheks AC and HS Carb consistent diet (4) Congestive heart failure: Qualifiers: Heart failure type: diastolic Heart failure chronicity: chronic Qualified Code(s): I50.32 - Chronic diastolic (congestive) heart failure Code(s): I50.9 - Heart failure, unspecified Status: Chronic Assessment and Plan: Appears to be euvolemic Daily intake and output Continue to monitor (5) Obstructive sleep apnea: Code(s): G47.33 - Obstructive sleep apnea (adult) (pediatric) Status: Chronic Assessment and Plan: Cannot tolerate cpap (6) HTN (hypertension) with goal to be determined: Code(s): I10 - Essential (primary) hypertension Status: Chronic Assessment and Plan: Continue home meds (7) Renal insufficiency: Code(s): N28.9 - Disorder of kidney and ureter, unspecified Status: Acute Assessment and Plan: BUN and creatinine at patient's baseline Continue to monitor (8) History of CVA (cerebrovascular accident): Code(s): Z86.73 - Personal history of transient ischemic attack (TIA), and cerebral infarction without residual deficits Status: Chronic Assessment and Plan: Continue statin Subjective Date/time seen: 06/07/21 13:43 Interval history: Admitted 06/04 with diabetic foot infection, osteomyelitis. 06/07 visit: Shooting pains from right first toe to foot. Lyrica helps some. Prior dose was 150mg bid. He is under the impression that the surgeon isn't going to do anything. Denied cp, sob, edema, gi/gu issues, bleeding. Review of Systems Review of Systems: All systems reviewed & are unremarkable except as noted in HPI and below Exam Narrative: HEENT: PERRL, sclerae nonicteric, pharyngeal mucosa pink and intact NECK: No JVD CHEST: Clear to auscultation. Normal effort. HEART: NL S1/S2, regular, no murmur ABDOMEN: BS+, soft, nontender, no mass, no bruits EXTREMITIES: dressing right foot NEUROLOGIC: CN intact and symmetric to inspection. MUSCULOSKELETAL: Tone and strength symmetric. PSYCH: Alert. Oriented to person, place, and time. Objective Data Vital Signs Vital Signs: Vital Signs - 24 hr 06/06/21 16:57 06/06/21 18:57 06/06/21 21:50 Temperature 98.4 F 98.0 F Pulse Rate 105 H 73 106 H Respiratory Rate 12 20 Blood Pressure 130/61 128/36 L Pulse Oximetry 100 95 06/07/21 05:50 06/07/21 08:22 Temperature 98.4 F Pulse Rate 113 H 100 Respiratory Rate 20 Blood Pressure 142/64 H Pulse Oximetry 90 Intake/Output Intake/Output: Intake & Output 06/04/21 06/05/21 06/06/21 06/07/21 23:59 23:59 23:59 23:59 Intake Total 50 4720 2280 1010 Output Total 900 2125 200 Balance 50 3820 155 810 Meds/Results Medications: Active Medications Generic Name Dose Route Start Last Admin Trade Name Freq PRN Reason Stop Dose Admin Acetaminophen 650 mg 06/04/21 21:39 06/06/21 16:38 Acetaminophen 325 Mg Tablet PO 650 mg Q4H PRN Administration Mild Pain (1-3) or Fever Albuterol 2 puff 06/04/21 22:54 06/06/21 09:36 Albuterol Sulfate (*Sp) Aerosol 1 Puff INHALATION 2 puff Q4H PRN Administration Shortness Of Breath Or Wheezing Allopurinol 100 mg 06/05/21 08:00 06/07/21 08:21 Allopurinol 100 Mg Tablet PO 100 mg DAILY@0800 CINDI Administration Aspirin 81 mg 06/05/21 09:00 06/07/21 08:23
[2021-06-07 15:48] VITALS: BP 136/59; PULSE 84; RESP 14; TEMP 36.8; O2SAT 95
[2021-06-07 16:05] LABS: Glucose Point of Care 255 mg/dl (65-105)
[2021-06-07 16:51] VITALS: PULSE 96
[2021-06-07] MEDS: PREGABALIN (*CRX) 50 MG CAPSULE 200 MG PO (16:51)
[2021-06-07] MEDS: FENOFIBRATE 160 MG TABLET PO (19:05)
[2021-06-07] MEDS: PRAVASTATIN SODIUM 20 MG TABLET 40 MG PO (20:05)
[2021-06-07] MEDS: MONTELUKAST SODIUM 10 MG TABLET PO (20:05)
[2021-06-07 21:51] LABS: Glucose Point of Care 267 mg/dl (65-105)
[2021-06-07 22:00] VITALS: BP 132/91; PULSE 104; RESP 18; TEMP 36.2; O2SAT 93
[2021-06-08] MEDS: HYDROmorphone HCL INJ (*CRX) 1 MG/ML SYR IV PUSH (02:40)
[2021-06-08 05:45] VITALS: BP 141/83; PULSE 96; RESP 20; TEMP 36.2; O2SAT 95
[2021-06-08 07:00] LABS: Basophils Absolute Auto 0.2 K/mm3 (0.0-0.1); Basophils Percent Auto 1.2 % (0.2-1.2); Eosinophils Percent Auto 5.4 % (0-4.4); Hematocrit 38.5 % (42.0-52.0); Hemoglobin 12.4 g/dL (14.0-18.0); Immature Granulocyte Absolute 0.67 K/mm3 (0.00-0.031); Immature Granulocyte Percent A 3.5 % (0-0.5); Lymphocytes Absolute Auto 3.72 K/mm3 (0.9-3.2); Lymphocytes Percent Auto 19.6 % (18.3-44.2); Mean Corpuscular HGB Conc 32.2 g/dl (32-36); Mean Corpuscular Hemoglobin 30.2 pg (26-34); Mean Corpuscular Volume 93.7 fl (80-100); Mean Platelet Volume 10.5 fl (7.4-10.4); Monocytes Absolute Auto 1.8 K/mm3 (0.1-0.6); Monocytes Percent Auto 9.5 % (2.6-8.5); Neutrophils Absolute Auto 11.6 K/mm3 (1.3-6.7); Neutrophils Percent Auto 60.8 % (45.5-73.1); Nucleated Red Blood Cells Absolute Auto 0.2 K/mm3 (0.0-0.012); Nucleated Red Blood Cells Perc 0.9 % (0.0-0.2); Platelet Count Result 649 k/mm3 (150-375); Red Blood Count 4.11 M/mm3 (4.6-6.20); Red Cell Distribution Width 12.8 % (11.5-14.5)
[2021-06-08 07:12] LABS: Anion Gap 7 mmol/L (8-16); Blood Urea Nitrogen 31 mg/dL (9-20); Calcium 9.5 mg/dL (8.4-10.2); Carbon Dioxide 26 mmol/L (22-30); Chloride 97 mmol/L (98-107); Estimated CRCL calculation 47 ml/min; Estimated Glomerular Filt Rate 41; Glucose 167 mg/dL (65-110); Potassium 4.2 mmol/L (3.4-5.0); Sodium 130 mmol/L (137-145)
[2021-06-08 07:33] LABS: Glucose Point of Care 152 mg/dl (65-105)
[2021-06-08] MEDS: INSULIN GLARGINE (*BKC) 100 UNITS/ML 25 UNITS SUB-Q (09:41)
[2021-06-08] MEDS: busPIRone HCL 5 MG TABLET 15 MG PO ×2 (09:45→17:02)
[2021-06-08] MEDS: MIDODRINE HCL 2.5 MG TABLET 5 MG BY MOUTH ×2 (09:45→14:12)
[2021-06-08] MEDS: PREGABALIN (*CRX) 50 MG CAPSULE 200 MG PO ×2 (09:45→16:58)
[2021-06-08 09:46] VITALS: PULSE 100
[2021-06-08] MEDS: HEPARIN SODIUM 5,000 UNITS/ML VIAL 5000 UNITS SUB-Q ×2 (09:46→20:43)
[2021-06-08] MEDS: LORATADINE 10 MG TABLET PO (09:46)
[2021-06-08] MEDS: allopurinoL 100 MG TABLET PO (09:46)
[2021-06-08] MEDS: MAGNESIUM OXIDE 400 MG TABLET PO (09:46)
[2021-06-08] MEDS: VENLAFAXINE HCL 37.5 MG TABLET PO ×2 (09:46→17:02)
[2021-06-08] MEDS: PANTOPRAZOLE 40 MG TABLET PO (09:46)
[2021-06-08] MEDS: METOPROLOL SUCCINATE EXT REL 12.5 MG TABCR PO ×2 (09:46→17:01)
[2021-06-08] MEDS: ASPIRIN 81 MG ENTERIC TABLET PO (09:46)
[2021-06-08] MEDS: TAMSULOSIN HCL 0.4 MG CAPSULE PO (09:47)
[2021-06-08] MEDS: FINASTERIDE 5 MG TABLET PO (09:47)
--- NOTE | 2021-06-08 11:35 | PM.PNGS ---
Progress Note: A&P Assessment and Plan (1) Osteomyelitis of great toe of right foot: Code(s): M86.9 - Osteomyelitis, unspecified Status: Acute Assessment and Plan: Discussed proceeding with right great toe amputation tomorrow. This will probably be close to noon. Will likely need to remove more of the right great toe than he has had removed on the left. Explained that to him. All questions were answered. He understands and agrees to go ahead. (2) Diabetic foot infection: Code(s): E11.628 - Type 2 diabetes mellitus with other skin complications; L08.9 - Local infection of the skin and subcutaneous tissue, unspecified Status: Acute Assessment and Plan: See above. (3) Insulin dependent diabetes mellitus: Status: Chronic Assessment and Plan: With neuropathy (4) Leukocytosis: Qualifiers: Leukocytosis type: unspecified Qualified Code(s): D72.829 - Elevated white blood cell count, unspecified Code(s): D72.829 - Elevated white blood cell count, unspecified Status: Chronic Assessment and Plan: history of myelofibrosis and splenectomy, not a reliable indicator of infection (5) Obstructive sleep apnea: Code(s): G47.33 - Obstructive sleep apnea (adult) (pediatric) Status: Chronic (6) Congestive heart failure: Qualifiers: Heart failure type: diastolic Heart failure chronicity: chronic Qualified Code(s): I50.32 - Chronic diastolic (congestive) heart failure Code(s): I50.9 - Heart failure, unspecified Status: Chronic Subjective Subjective Date/Time Seen: 06/08/21 11:35 Patient reports: no new complaints and afebrile Interval history: Discussed plans for right great toe amputation tomorrow. Review of Systems Review of Systems: All systems reviewed & are unremarkable except as noted in HPI and below Constitutional: Constitutional: Denies body ache(s), Denies chills, Denies fever(s), Denies headache(s) and Denies poor appetite Cardiovascular: Cardiovascular: Denies chest pain and Denies dyspnea Respiratory: Respiratory: Denies cough and Denies dyspnea Neurologic: Denies confusion and Denies headache(s) Exam Const: General: comfortable and no acute distress; No confusion Orientation/consciousness: patient oriented x3 and No confusion Neuro: General: patient oriented x3, no focal motor deficits and No confusion Extrem: General: no calf tenderness and no edema Right lower extremity: foot ( left great toe amputation site reviewed. Most of the toe is still there.) Left lower extremity: foot ( Great toe exam unchanged from yesterday, distal dry eschar) Psych: Affect: normal affect Insight: Good insight present (Psych) Judgement: Good judgement present (Psych) Objective Data Vital Signs Vital Signs: Vital Signs - 24 hr 06/07/21 15:48 06/07/21 16:51 06/07/21 22:00 Temperature 36.8 C 36.2 C L Pulse Rate 84 96 104 H Respiratory Rate 14 18 Blood Pressure 136/59 L 132/91 H Pulse Oximetry 95 93 06/08/21 05:45 06/08/21 09:46 Temperature 36.2 C L Pulse Rate 96 100 Respiratory Rate 20 Blood Pressure 141/83 H Pulse Oximetry 95 Intake/Output Intake/Output: Intake & Output 06/05/21 06/06/21 06/07/21 06/08/21 23:59 23:59 23:59 23:59 Intake Total 4720 2280 3220 530 Output Total 900 2125 1950 100 Balance 3820 155 1270 430 Meds/Results Medications: Active Medications Generic Name Dose Route Start Last Admin Trade Name Freq PRN Reason Stop Dose Admin Acetaminophen 650 mg 06/04/21 21:39 06/06/21 16:38 Acetaminophen 325 Mg Tablet PO 650 mg Q4H PRN Administration Mild Pain (1-3) or Fever Albuterol 2 puff 06/04/21 22:54 06/06/21 09:36 Albuterol Sulfate (*Sp) Aerosol 1 Puff INHALATION 2 puff Q4H PRN Administration Shortness Of Breath Or Wheezing Allopurinol 100 mg 06/05/21 08:00 06/08/21 09:46 Allopurinol 100 Mg Tablet PO 100 mg
[2021-06-08 12:01] LABS: Glucose Point of Care 238 mg/dl (65-105)
--- NOTE | 2021-06-08 12:37 | WPDANESEPP ---
Anes - Eval Pre Procedure Procedure: Right Great Toe Amputation Date/Time: 06/08/21 12:37 Surgeon: Bill Preop Diagnosis: Osteomyelitis Right Great Toe Pre Op Diagnosis: Diabetic Foot Ulcer Patient Data Age: 60 Gender: M Height: 1.7 m Weight: 97.9 kg Last Vital Signs Temp 36.2 C L 06/08/21 05:45 Pulse 100 06/08/21 09:46 Resp 20 06/08/21 05:45 BP 141/83 H 06/08/21 05:45 Pulse Ox 95 06/08/21 05:45 Allergies Allergy/AdvReac Type Severity Reaction Status Date / Time naproxen Allergy Intermediate SWELLING Verified 06/04/21 20:31 iohexol Allergy Unknown Verified 06/04/21 20:31 [From contrast - CT, X-RAY] morphine AdvReac Vomiting Verified 06/04/21 21:14 Home Medications Medication Instructions Recorded Confirmed Type fenofibrate 160 mg PO QPM 01/15/20 06/05/21 History metformin 1,000 mg PO BID 01/15/20 06/05/21 History tamsulosin 0.4 mg PO DAILY 01/15/20 06/05/21 History loratadine 10 mg PO QAM #30 tablet 01/31/20 06/05/21 Rx magnesium oxide 400 mg PO QAM #30 tablet 01/31/20 06/05/21 Rx albuterol sulfate 90 mcg/actuation 2 puff INHALATION Q4H PRN 11/08/20 06/05/21 History aerosol inhaler allopurinol 100 mg tablet 100 mg PO DAILY 11/08/20 06/05/21 History aspirin 81 mg tablet,delayed 81 mg PO DAILY 11/08/20 06/05/21 History release budesonide-formoterol HFA 160 2 puff INHALATION DAILY 11/08/20 06/05/21 History mcg-4.5 mcg/actuation aerosol inhaler cholecalciferol (vitamin D3) 1,250 1,250 mcg PO WEEKLY 11/08/20 06/05/21 History mcg (50,000 unit) capsule ciprofloxacin HCl 0.3 % eye drops See Rx Instructions OPHTHALMIC 11/08/20 06/05/21 Rx (EYE) .COMPLEX #10 ml finasteride 5 mg tablet 5 mg PO DAILY 11/08/20 06/05/21 History insulin lispro 100 unit/mL See Rx Instructions .ROUTE .COMPLEX 11/08/20 06/05/21 History subcutaneous solution midodrine 5 mg tablet See Rx Instructions .ROUTE 11/08/20 06/05/21 History .COMPLEX tablet montelukast 10 mg tablet 10 mg PO HS 11/08/20 06/05/21 History Trulicity 0.75 mg SUBCUT WEEKLY 04/11/21 06/05/21 History baclofen 10 mg PO BID PRN 04/11/21 06/05/21 History buspirone 15 mg PO BID 04/11/21 06/05/21 History cyclobenzaprine 10 mg PO TID PRN 04/11/21 06/05/21 History metoprolol succinate 12.5 mg PO BID 04/11/21 06/05/21 History pravastatin 40 mg PO HS 04/11/21 06/05/21 History pregabalin 100 mg PO BID 04/11/21 06/05/21 History silver sulfadiazine [SSD] 1 applic TOPICAL BID PRN 04/11/21 06/05/21 History venlafaxine 37.5 mg PO BID 04/11/21 06/05/21 History zolpidem 10 mg PO HS 04/11/21 06/05/21 History Laboratory Tests 06/07/21 06/07/21 06/08/21 16:01 20:55 06:43 WBC 19.0 K/mm3 H K/mm3 (4.5-10.0) RBC 4.11 M/mm3 L M/mm3 (4.6-6.20) Hgb 12.4 g/dL L g/dL (14.0-18.0) Hct 38.5 % L % (42.0-52.0) MCV 93.7 fl fl (80-100) MCH 30.2 pg pg (26-34) MCHC 32.2 g/dl g/dl (32-36) RDW 12.8 % % (11.5-14.5) Plt Count 649 k/mm3 H k/mm3 (150-375) MPV 10.5 fl H fl (7.4-10.4) Immature Gran % (Auto) 3.5 % H % (0-0.5) Neut % (Auto) 60.8 % % (45.5-73.1) Lymph % (Auto) 19.6 % % (18.3-44.2) [place] % (Auto) 9.5 % H % (2.6-8.5) Eos % (Auto) 5.4 % H % (0-4.4) Baso % (Auto) 1.2 % % (0.2-1.2) Lymph # (Auto) 3.72 K/mm3 H K/mm3 (0.9-3.2) [place] # (Auto) 1.8 K/mm3 H K/mm3 (0.1-0.6) Eos # (Auto) 1.0 K/mm3 H K/mm3 (0-0.3) Baso # (Auto) 0.2 K/mm3 H K/mm3 (0.0-0.1) Abs Immat Gran (auto) 0.67 K/mm3 H K/mm3 (0.00-0.031) Absolute Neuts (auto) 11.6 K/mm3 H K/mm3 (1.3-6.7) Absolute Nucleated RBC 0.2 K/mm3 H K/mm3 (0.0-0.012) Nucleated RBC % 0.9 % H % (0.0-0.2) Sodium Potassium Chloride Carbon Dioxide Anion Gap BUN Creatinine
--- NOTE | 2021-06-08 12:58 | PM.IMPN ---
Progress Note: A&P Assessment and Plan (1) Dry gangrene: Code(s): I96 - Gangrene, not elsewhere classified Status: Acute Assessment and Plan: Right first toe Surgery to proceed with amputation Continue Zosyn (2) Diabetic foot: Code(s): E11.8 - Type 2 diabetes mellitus with unspecified complications Status: Acute Assessment and Plan: Left side Continue Unna boot 06/07 Increased pregabalin to 200mg bid. (3) Insulin dependent diabetes mellitus: Status: Chronic Assessment and Plan: 06/07 increased Lantus from 20 to 25 U daily Accu-Cheks AC and HS Carb consistent diet (4) Congestive heart failure: Qualifiers: Heart failure chronicity: chronic Heart failure type: diastolic Qualified Code(s): I50.32 - Chronic diastolic (congestive) heart failure Code(s): I50.9 - Heart failure, unspecified Status: Chronic Assessment and Plan: Appears to be euvolemic Daily intake and output Continue to monitor (5) Obstructive sleep apnea: Code(s): G47.33 - Obstructive sleep apnea (adult) (pediatric) Status: Chronic Assessment and Plan: Cannot tolerate cpap (6) HTN (hypertension) with goal to be determined: Code(s): I10 - Essential (primary) hypertension Status: Chronic Assessment and Plan: Reviewed and control adequate 06/08 (7) Renal insufficiency: Code(s): N28.9 - Disorder of kidney and ureter, unspecified Status: Acute Assessment and Plan: BUN and creatinine near patient's baseline 06/08 1.7 Continue to monitor (8) Open wound of left forearm: Qualifiers: Encounter type: subsequent encounter Qualified Code(s): S51.802D - Unspecified open wound of left forearm, subsequent encounter Code(s): S51.802A - Unspecified open wound of left forearm, initial encounter Status: Acute Assessment and Plan: Due to IV infiltration with cefepime Wound care with Dakin's 1/4 strength, silvadine, dressing ordered (9) History of CVA (cerebrovascular accident): Code(s): Z86.73 - Personal history of transient ischemic attack (TIA), and cerebral infarction without residual deficits Status: Chronic Assessment and Plan: Continue statin Subjective Date/time seen: 06/08/21 12:58 Interval history: Admitted 06/04 with diabetic foot infection, osteomyelitis. 06/08 visit: Shooting pains from right first toe to foot. Lyrica helps some. Left arm blistering rash after IV cefepime infiltrated 2 days ago. Itches. Painful. Tolerated diet. Denied cp, sob, edema, gi/gu issues, bleeding. Review of Systems Review of Systems: All systems reviewed & are unremarkable except as noted in HPI and below Exam Narrative: HEENT: PERRL, sclerae nonicteric, pharyngeal mucosa pink and intact NECK: No JVD CHEST: Clear to auscultation. Normal effort. HEART: NL S1/S2, regular, no murmur ABDOMEN: BS+, soft, nontender, no mass, no bruits EXTREMITIES: dressing right foot NEUROLOGIC: CN intact and symmetric to inspection. MUSCULOSKELETAL: Tone and strength symmetric. PSYCH: Alert. Oriented to person, place, and time. SKIN: LUE with mild erythema, superficial ulcerations Objective Data Vital Signs Vital Signs: Vital Signs - 24 hr 06/07/21 15:48 06/07/21 16:51 06/07/21 22:00 Temperature 98.3 F 97.2 F L Pulse Rate 84 96 104 H Respiratory Rate 14 18 Blood Pressure 136/59 L 132/91 H Pulse Oximetry 95 93 06/08/21 05:45 06/08/21 09:46 Temperature 97.2 F L Pulse Rate 96 100 Respiratory Rate 20 Blood Pressure 141/83 H Pulse Oximetry 95 Intake/Output Intake/Output: Intake & Output 06/05/21 06/06/21 06/07/21 06/08/21 23:59 23:59 23:59 23:59 Intake Total 4720 2280 3220 770 Output Total 900 2125 1950 100 Balance 3820 155 1270 670 Meds/Results Medications: Active Medications Generic Name Dose Route Start Last Admin Trade Name Freq PRN Reason Stop D
[2021-06-08] MEDS: INSULIN ASPART (*BKC) 100 UNITS/ML SUB-Q ×2 (13:43→16:58)
[2021-06-08 14:00] VITALS: BP 138/83; PULSE 100; RESP 18; TEMP 37; O2SAT 90
[2021-06-08 17:01] VITALS: PULSE 88
[2021-06-08] MEDS: FENOFIBRATE 160 MG TABLET PO (17:03)
[2021-06-08] MEDS: SILVER SULFADIAZINE 1% CR 50 GM JAR (*BKC) 1 APPLIC TOPICAL (17:03)
[2021-06-08] MEDS: SOD HYPOCHLORITE 1/4 STRENGTH 473 ML 1 APPLIC TOPICAL (17:04)
[2021-06-08] MEDS: HYDROmorphone HCL INJ (*CRX) 1 MG/ML SYR 0.5 MG IV PUSH (18:34)
[2021-06-08 18:43] LABS: Glucose Point of Care 337 mg/dl (65-105)
[2021-06-08 20:30] VITALS: PULSE 106; RESP 20; O2SAT 90
[2021-06-08] MEDS: MONTELUKAST SODIUM 10 MG TABLET PO (20:44)
[2021-06-08] MEDS: PRAVASTATIN SODIUM 20 MG TABLET 40 MG PO (20:45)
[2021-06-08 22:00] VITALS: BP 130/53; PULSE 106; RESP 20; TEMP 37.4; O2SAT 90
[2021-06-09] VITALS (14 sets, daily range): BP systolic 129–144; BP diastolic 58–78; PULSE 70–90; RESP 10–20; TEMP 36.4–36.7; O2SAT 92–99
[2021-06-09 01:04] LABS: Glucose Point of Care 308 mg/dl (65-105)
[2021-06-09] MEDS: HYDROmorphone HCL INJ (*CRX) 1 MG/ML SYR 0.5 MG IV PUSH ×2 (02:56→07:36)
[2021-06-09 07:02] LABS: Hematocrit 36.9 % (42.0-52.0); Hemoglobin 11.9 g/dL (14.0-18.0); Mean Corpuscular HGB Conc 32.2 g/dl (32-36); Mean Corpuscular Hemoglobin 29.9 pg (26-34); Mean Corpuscular Volume 92.7 fl (80-100); Mean Platelet Volume 10.4 fl (7.4-10.4); Platelet Count Result 716 k/mm3 (150-375); Red Blood Count 3.98 M/mm3 (4.6-6.20); White Blood Count 21.5 K/mm3 (4.5-10.0)
[2021-06-09 07:17] LABS: Anion Gap 6 mmol/L (8-16); Blood Urea Nitrogen 29 mg/dL (9-20); Calcium 9.1 mg/dL (8.4-10.2); Carbon Dioxide 24 mmol/L (22-30); Chloride 104 mmol/L (98-107); Estimated CRCL calculation 53 ml/min; Estimated Glomerular Filt Rate 48; Glucose 270 mg/dL (65-110); Potassium 4.1 mmol/L (3.4-5.0); Sodium 134 mmol/L (137-145)
[2021-06-09 07:59] LABS: Basophils Absolute Manual 0.43 K/mm3 (0.0-0.1); Basophils Percent Manual 2 % (0-1); Eosinophils Absolute Manual 1.72 K/mm3 (0.02-0.5); Eosinophils Percent Manual 8 % (0-4); Lymphocytes Absolute Manual 4.73 K/mm3 (1.1-4.5); Monocytes Absolute Manual 0.86 K/mm3 (0.1-0.90); Monocytes Percent Manual 4 % (3-9); Neutrophils Percent Manual 64 % (46-73); Nucleated Red Blood Cells 2 %; Platelet Estimate Increased (Adequate); Total Cells Counted 100
--- NOTE | 2021-06-09 08:26 | PM.IMPN ---
Progress Note: A&P Assessment and Plan (1) Dry gangrene: Code(s): I96 - Gangrene, not elsewhere classified Status: Acute Assessment and Plan: Right first toe Surgery to proceed with amputation 06/09 Continue Zosyn (2) Diabetic foot: Code(s): E11.8 - Type 2 diabetes mellitus with unspecified complications Status: Acute Assessment and Plan: Left side Continue Unna boot 06/07 Increased pregabalin to 200mg bid. (3) Insulin dependent diabetes mellitus: Status: Chronic Assessment and Plan: 06/07 increased Lantus from 20 to 25 U daily 06/09 increased Lantus to 32 U, added premeal Novolog, continue SSI (low dose pre-op, then moderate dose) Diabetic diet (4) Congestive heart failure: Qualifiers: Heart failure type: diastolic Heart failure chronicity: chronic Qualified Code(s): I50.32 - Chronic diastolic (congestive) heart failure Code(s): I50.9 - Heart failure, unspecified Status: Chronic Assessment and Plan: Appears to be euvolemic Daily intake and output Continue to monitor (5) Obstructive sleep apnea: Code(s): G47.33 - Obstructive sleep apnea (adult) (pediatric) Status: Chronic Assessment and Plan: Cannot tolerate cpap (6) HTN (hypertension) with goal to be determined: Code(s): I10 - Essential (primary) hypertension Status: Chronic Assessment and Plan: Reviewed and control adequate 06/09 (7) Renal insufficiency: Code(s): N28.9 - Disorder of kidney and ureter, unspecified Status: Acute Assessment and Plan: BUN and creatinine near patient's baseline 06/08 1.7, 06/09 15 Continue to monitor (8) Open wound of left forearm: Qualifiers: Encounter type: subsequent encounter Qualified Code(s): S51.802D - Unspecified open wound of left forearm, subsequent encounter Code(s): S51.802A - Unspecified open wound of left forearm, initial encounter Status: Acute Assessment and Plan: Due to IV infiltration with cefepime Wound care with Dakin's 1/4 strength, silvadine, dressing ordered Improving (9) History of CVA (cerebrovascular accident): Code(s): Z86.73 - Personal history of transient ischemic attack (TIA), and cerebral infarction without residual deficits Status: Chronic Assessment and Plan: Continue statin Subjective Date/time seen: 06/09/21 08:26 Interval history: Admitted 06/04 with diabetic foot infection, osteomyelitis. 06/09 visit: Shooting pains from right first toe to foot. Lyrica helps some. Left arm blistering rash after IV cefepime infiltrated. Feels much better today. NPO for surgery Denied cp, sob, edema, gi/gu issues, bleeding. Review of Systems Review of Systems: All systems reviewed & are unremarkable except as noted in HPI and below Exam Narrative: HEENT: PERRL, sclerae nonicteric, pharyngeal mucosa pink and intact NECK: No JVD CHEST: Clear to auscultation. Normal effort. HEART: NL S1/S2, regular, no murmur ABDOMEN: BS+, soft, nontender, no mass, no bruits EXTREMITIES: dressing right foot NEUROLOGIC: CN intact and symmetric to inspection. MUSCULOSKELETAL: Tone and strength symmetric. PSYCH: Alert. Oriented to person, place, and time. SKIN: LUE with mild erythema, superficial ulcerations Objective Data Vital Signs Vital Signs: Vital Signs - 24 hr 06/08/21 09:46 06/08/21 14:00 06/08/21 17:01 Temperature 98.6 F Pulse Rate 100 100 88 Respiratory Rate 18 Blood Pressure 138/83 Pulse Oximetry 90 06/08/21 20:30 06/08/21 22:00 06/09/21 06:00 Temperature 99.3 F 98.1 F Pulse Rate 106 H 106 H 90 Respiratory Rate 20 20 18 Blood Pressure 130/53 L 142/67 H Pulse Oximetry 90 90 92 Intake/Output Intake/Output: Intake & Output 06/06/21 06/07/21 06/08/21 06/09/21 23:59 23:59 23:59 23:59 Intake Total 2280 3220 1710 50 Output Total 2125 1950 100 350 Balance 155 1270 1610 -300 Meds/R
--- NOTE | 2021-06-09 08:27 | ADMGEN ---
This patient, Jeremías Gaines, was admitted to [facility] Surg Room 317-02. Patient/family oriented to hospital policies and general routines including ID bracelet, bed and alarms, visiting hours, pain management, procedures, bathroom and other care routines, personal items, smoking policy, room service/diet, and visiting hours. Information on how to activate the Rapid Response Team has been discussed. Patient/Family are encouraged to report perceived risks to care and to ask questions if they do not understand what they are told or what they should do. Patient generally said yes to most questions asked though his memory was suspect. He was asked twice what time it was and his location getting both questions wrongs both times. He appeared to fall asleep between admissions questions. He was pleasant and cooperative, sleeping through most of the shift.
[2021-06-09 08:48] LABS: Glucose Point of Care 234 mg/dl (65-105)
[2021-06-09] MEDS: INSULIN ASPART (*BKC) 100 UNITS/ML SUB-Q ×5 (08:53→16:37)
[2021-06-09] MEDS: INSULIN GLARGINE (*BKC) 100 UNITS/ML 32 UNITS SUB-Q (08:53)
[2021-06-09] MEDS: METOPROLOL SUCCINATE EXT REL 12.5 MG TABCR PO ×2 (08:55→16:38)
[2021-06-09] MEDS: allopurinoL 100 MG TABLET PO (08:55)
[2021-06-09] MEDS: PREGABALIN (*CRX) 50 MG CAPSULE 200 MG PO ×2 (08:55→16:39)
[2021-06-09] MEDS: TAMSULOSIN HCL 0.4 MG CAPSULE PO (08:55)
[2021-06-09] MEDS: FINASTERIDE 5 MG TABLET PO (08:55)
[2021-06-09] MEDS: busPIRone HCL 5 MG TABLET 15 MG PO ×2 (08:56→16:38)
[2021-06-09] MEDS: ASPIRIN 81 MG ENTERIC TABLET PO (08:56)
[2021-06-09] MEDS: VENLAFAXINE HCL 37.5 MG TABLET PO ×2 (08:56→16:38)
[2021-06-09] MEDS: MAGNESIUM OXIDE 400 MG TABLET PO (08:56)
[2021-06-09] MEDS: LORATADINE 10 MG TABLET PO (08:56)
[2021-06-09] MEDS: PANTOPRAZOLE 40 MG TABLET PO (08:56)
[2021-06-09] MEDS: MIDODRINE HCL 2.5 MG TABLET 5 MG BY MOUTH ×2 (08:56→15:26)
--- NOTE | 2021-06-09 10:00 | PC.NURSE ---
to OR per bed
[2021-06-09] MEDS: LACTATED RINGERS 1,000 ML 30 ML IV CONT (10:05)
--- NOTE | 2021-06-09 10:24 | WPDHPUPDATE1 ---
History and Physical Update Update Date/Time: 06/09/21 10:24 History and Physical has been reviewed, including an updated exam of the patient. There are NO changes in the patient's condition. Risks, benefits, and alternatives have been discussed and questions answered. Patient agrees to proceed with procedure.
[2021-06-09 10:27] LABS: Glucose Point of Care 239 mg/dl (65-105)
--- NOTE | 2021-06-09 10:44 | WPDANESEFPP ---
Anes - Eval Final PreProcedure Day of Procedure 06/09/21 10:44 Patient weight: obese Heart: regular rate and rhythm Lungs: clear to auscultation and normal air movement Airway: Mallampati scale class III Neurological: alert and oriented Last oral intake: >/= 8 hours ASA classification: IV Emergent: no Anesthetic plan: proceed Anesthesia type and monitoring: general LMA and standard monitoring Informed Consent: The patient's anesthetic plan and its attendant risks and benefits were discussed with the patient/family/POA. Questions were solicited and answers provided to the satisfaction of the patient/family/POA.
[2021-06-09] MEDS: ceFAZolin 2 GM/D5W 50 ML 2 GM/50 ML BAG IVPB (12:16)
[2021-06-09 13:15] LABS: Glucose Point of Care 193 mg/dl (65-105)
--- NOTE | 2021-06-09 13:25 | W.PM.PROC2 ---
Procedure Note - Detailed Date of Procedure 06/09/21 Pre-op Diagnosis Osteomyelitis distal phalanx right great toe Post-op Diagnosis same Procedure Performed Amputation right great toe Surgeon Piero Khan MD Medical Device Sales Representative Bettie [facility] Anesthesia general and local (0.5% Marcaine) Indications Patient is a 60-year-old diabetic man who presented with fever swelling discharge from his right great toe. Imaging shows osteomyelitis of the distal phalanx. He is taken to OR now for right great toe amputation. 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 Findings Healthy tissue at the level of the amputation, just above the metatarsal phalangeal joint. Description of Procedure Patient was taken to surgery and general anesthesia per LMA was introduced. The right foot was prepped and draped. Local anesthetic was infiltrated to provide digital block anesthesia of the great toe. Anterior posterior flap-type incision was marked on the skin. Prior to making the incision, cultures were taken from an ulcer at the apex were distal aspect of the toe. These were sent for Gram stain aerobes and anaerobes. Then the fishmouth type incision was made dissection was carried down through the tendinous structures to the proximal phalanx. Periosteal elevators were then used to expose the bone of the proximal phalanx near the metatarsophalangeal joint. A bone cutter was used and the proximal phalanx was divided here. Cautery was used for hemostasis. The 2 flaps fit together with no tension. They appeared to be well vascularized. Interrupted 3 0 Vicryl deeper stitches were placed to approximate the subcutaneous of the 2 flaps. 3-0 Vicryl subcuticular interrupted sutures were used to approximate the skin loosely. The amputation was dressed was Xeroform gauze fluffs Kerlix roll and 4 in Pineda wrap. Patient was awakened and taken to recovery in good condition. Sponge and needle counts were correct x2. Estimated Blood Loss -10.0 Urine Output 350 Drains No Packing No Pathology yes (Right great toe, cultures from toe ulcer) Complications None Condition stable Disposition PACU
--- NOTE | 2021-06-09 14:22 | PC.NURSE ---
patient returned to room from OR
[2021-06-09] MEDS: SOD HYPOCHLORITE 1/4 STRENGTH 473 ML 1 APPLIC TOPICAL (14:30)
[2021-06-09] MEDS: SILVER SULFADIAZINE 1% CR 50 GM JAR (*BKC) 1 APPLIC TOPICAL (14:31)
[2021-06-09 14:43] LABS: Glucose Point of Care 201 mg/dl (65-105)
--- NOTE | 2021-06-09 14:55 | PCOTNOTE ---
Patient not seen for OT this date, patient underwent amputation of R big toe and will need re-evaluated by OTR prior to treating. Will continue PLOC then.
[2021-06-09 16:27] LABS: Glucose Point of Care 208 mg/dl (65-105)
[2021-06-09] MEDS: FENOFIBRATE 160 MG TABLET PO (16:38)
[2021-06-09] MEDS: HYDROcodone/acetaminophen (*CRX) 7.5-325 MG TABLET 1 TAB PO (16:45)
[2021-06-09] MEDS: HYDROmorphone HCL INJ (*CRX) 1 MG/ML SYR IV PUSH (22:00)
[2021-06-09] MEDS: HEPARIN SODIUM 5,000 UNITS/ML VIAL 5000 UNITS SUB-Q (22:00)
[2021-06-09] MEDS: MAG HYDROX/AL HYDROX/SIMETH 30 ML UDC PO (22:00)
[2021-06-09] MEDS: MONTELUKAST SODIUM 10 MG TABLET PO (22:01)
[2021-06-09] MEDS: PRAVASTATIN SODIUM 20 MG TABLET 40 MG PO (22:01)
[2021-06-10] VITALS (8 sets, daily range): BP systolic 120–145; BP diastolic 53–84; PULSE 60–101; RESP 20; TEMP 36.1–36.8; O2SAT 93–96
[2021-06-10 01:58] LABS: Glucose Point of Care 299 mg/dl (65-105)
[2021-06-10] MEDS: HYDROmorphone HCL INJ (*CRX) 1 MG/ML SYR IV PUSH (04:02)
[2021-06-10 06:48] LABS: Hematocrit 38.9 % (42.0-52.0); Hemoglobin 12.2 g/dL (14.0-18.0); Mean Corpuscular HGB Conc 31.4 g/dl (32-36); Mean Corpuscular Hemoglobin 30.3 pg (26-34); Mean Corpuscular Volume 96.5 fl (80-100); Mean Platelet Volume 10.7 fl (7.4-10.4); Platelet Count Result 697 k/mm3 (150-375); Red Blood Count 4.03 M/mm3 (4.6-6.20); Red Cell Distribution Width 13.1 % (11.5-14.5); White Blood Count 30.5 K/mm3 (4.5-10.0)
[2021-06-10 07:14] LABS: Glucose Point of Care 264 mg/dl (65-105)
[2021-06-10 07:25] LABS: Anion Gap 11 mmol/L (8-16); Blood Urea Nitrogen 25 mg/dL (9-20); Carbon Dioxide 25 mmol/L (22-30); Chloride 96 mmol/L (98-107); Estimated CRCL calculation 44 ml/min; Estimated Glomerular Filt Rate 39; Glucose 291 mg/dL (65-110); Potassium 4.8 mmol/L (3.4-5.0); Sodium 132 mmol/L (137-145)
[2021-06-10] MEDS: HYDROcodone/acetaminophen (*CRX) 7.5-325 MG TABLET 1 TAB PO ×3 (08:17→21:55)
[2021-06-10] MEDS: PREGABALIN (*CRX) 50 MG CAPSULE 200 MG PO ×2 (08:18→17:29)
[2021-06-10] MEDS: HEPARIN SODIUM 5,000 UNITS/ML VIAL 5000 UNITS SUB-Q ×2 (08:18→21:46)
[2021-06-10] MEDS: INSULIN ASPART (*BKC) 100 UNITS/ML SUB-Q ×6 (08:19→17:23)
[2021-06-10] MEDS: allopurinoL 100 MG TABLET PO (08:24)
[2021-06-10] MEDS: LORATADINE 10 MG TABLET PO (08:24)
[2021-06-10] MEDS: PANTOPRAZOLE 40 MG TABLET PO (08:24)
[2021-06-10] MEDS: busPIRone HCL 5 MG TABLET 15 MG PO ×2 (08:24→17:23)
[2021-06-10] MEDS: MAGNESIUM OXIDE 400 MG TABLET PO (08:25)
[2021-06-10] MEDS: TAMSULOSIN HCL 0.4 MG CAPSULE PO (08:25)
[2021-06-10] MEDS: ASPIRIN 81 MG ENTERIC TABLET PO (08:27)
[2021-06-10] MEDS: MIDODRINE HCL 2.5 MG TABLET 5 MG BY MOUTH ×2 (08:27→13:34)
[2021-06-10] MEDS: FINASTERIDE 5 MG TABLET PO (08:28)
[2021-06-10] MEDS: VENLAFAXINE HCL 37.5 MG TABLET PO ×2 (08:28→17:31)
[2021-06-10] MEDS: hydrOXYzine HCL 10 MG TABLET PO ×2 (08:28→17:30)
[2021-06-10] MEDS: METOPROLOL SUCCINATE EXT REL 12.5 MG TABCR PO ×2 (08:29→17:29)
[2021-06-10] MEDS: INSULIN GLARGINE (*BKC) 100 UNITS/ML 32 UNITS SUB-Q (08:31)
--- NOTE | 2021-06-10 09:08 | PM.IMPN ---
Progress Note: A&P Assessment and Plan (1) Dry gangrene: Code(s): I96 - Gangrene, not elsewhere classified Status: Acute Assessment and Plan: Right first toe distal amputation 06/09 Continue Zosyn (2) Diabetic foot: Code(s): E11.8 - Type 2 diabetes mellitus with unspecified complications Status: Acute Assessment and Plan: Left side dressing 06/07 Increased pregabalin to 200mg bid. (3) Insulin dependent diabetes mellitus: Status: Chronic Assessment and Plan: 06/07 increased Lantus from 20 to 25 U daily 06/09 increased Lantus to 32 U, added premeal Novolog, continue SSI (low dose pre-op, then moderate dose) Diabetic diet (4) Congestive heart failure: Qualifiers: Heart failure type: diastolic Heart failure chronicity: chronic Qualified Code(s): I50.32 - Chronic diastolic (congestive) heart failure Code(s): I50.9 - Heart failure, unspecified Status: Chronic Assessment and Plan: Appears to be euvolemic Daily intake and output Continue to monitor (5) Obstructive sleep apnea: Code(s): G47.33 - Obstructive sleep apnea (adult) (pediatric) Status: Chronic Assessment and Plan: Cannot tolerate cpap (6) Renal insufficiency: Code(s): N28.9 - Disorder of kidney and ureter, unspecified Status: Acute Assessment and Plan: BUN and creatinine near patient's baseline 06/08 1.7, 06/09 1.5, 06/10 1.8 Continue to monitor (7) Open wound of left forearm: Qualifiers: Encounter type: subsequent encounter Qualified Code(s): S51.802D - Unspecified open wound of left forearm, subsequent encounter Code(s): S51.802A - Unspecified open wound of left forearm, initial encounter Status: Acute Assessment and Plan: Due to IV infiltration with cefepime Wound care with Dakin's 1/4 strength, silvadine, dressing ordered Improving (8) History of hematologic malignancy: Code(s): 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, hematopoietic and related tissues Status: Acute Assessment and Plan: With associated myelofibrosis Follows at [facility] [place] [facility] (9) History of CVA (cerebrovascular accident): Code(s): Z86.73 - Personal history of transient ischemic attack (TIA), and cerebral infarction without residual deficits Status: Chronic Assessment and Plan: Continue statin (10) HTN (hypertension) with goal to be determined: Code(s): I10 - Essential (primary) hypertension Status: Chronic Assessment and Plan: Reviewed and control adequate 06/09 Subjective Date/time seen: 06/10/21 09:08 Interval history: Admitted 06/04 with diabetic foot infection, osteomyelitis. 06/10 visit: Shooting pains from right first toe to foot. Less severe than pre op Left arm blistering rash after IV cefepime infiltrated. Feels much better today. Denied cp, sob, edema, gi/gu issues, bleeding. Review of Systems Review of Systems: All systems reviewed & are unremarkable except as noted in HPI and below Exam Narrative: HEENT: PERRL, sclerae nonicteric, pharyngeal mucosa pink and intact NECK: No JVD CHEST: Clear to auscultation. Normal effort. HEART: NL S1/S2, regular, no murmur ABDOMEN: BS+, soft, nontender, no mass, no bruits EXTREMITIES: dressing right foot NEUROLOGIC: CN intact and symmetric to inspection. MUSCULOSKELETAL: Tone and strength symmetric. PSYCH: Alert. Oriented to person, place, and time. SKIN: LUE with mild erythema, superficial ulcerations Objective Data Vital Signs Vital Signs: Vital Signs - 24 hr 06/09/21 13:00 06/09/21 13:15 06/09/21 13:30 Temperature 98.0 F Pulse Rate 88 82 85 Respiratory Rate 10 L 12 12 Blood Pressure 133/66 131/62 139/68 Pulse Oximetry 97 99 93 06/09/21 13:44 06/09/21 14:00 06/09/21 14:20 Temperature 97.9 F Pulse Rate 83 82 82 Respiratory Rate 13 12 16 Blood Pressur
--- NOTE | 2021-06-10 10:26 | WPDANESPN ---
Anes - Prog Note Post-Op Date/Time: 06/10/21 10:26 Cardiovascular status: normal Respiratory status: normal Airway patency: baseline Mental status: baseline Post-Op hydration status: normal Vital Signs: Last Vital Signs Temp 36.8 C 06/10/21 04:00 Pulse 60 06/10/21 08:29 Resp 20 06/10/21 04:00 BP 134/84 06/10/21 04:00 Pulse Ox 95 06/10/21 04:00 Pain Score (VAS): 2 I/O: Intake & Output 06/09/21 06/10/21 06/10/21 23:59 07:59 15:59 Intake Total 1260 290 480 Output Total 175 300 Balance 1085 -10 480 Laboratory Tests 06/10/21 06:13 06/10/21 06:13 06/09/21 06/09/21 06/09/21 10:24 13:13 14:37 WBC RBC Hgb Hct MCV MCH MCHC RDW Plt Count MPV Sodium Potassium Chloride Carbon Dioxide Anion Gap BUN Creatinine Estim Creat Clear Calc Estimated GFR Glucose POC Capillary Glucose 239 H 193 H 201 H Calcium 06/09/21 06/09/21 06/10/21 16:18 21:09 06:13 WBC 30.5 H RBC 4.03 L Hgb 12.2 L Hct 38.9 L MCV 96.5 MCH 30.3 MCHC 31.4 L RDW 13.1 Plt Count 697 H MPV 10.7 H Sodium Potassium Chloride Carbon Dioxide Anion Gap BUN Creatinine Estim Creat Clear Calc Estimated GFR Glucose POC Capillary Glucose 208 H 299 H Calcium 06/10/21 06/10/21 06:13 07:11 WBC RBC Hgb Hct MCV MCH MCHC RDW Plt Count MPV Sodium 132 L Potassium 4.8 Chloride 96 L Carbon Dioxide 25 Anion Gap 11 BUN 25 H Creatinine 1.80 H Estim Creat Clear Calc 44 Estimated GFR 39 L Glucose 291 H POC Capillary Glucose 264 H Calcium 9.0 Microbiology 06/04/21 21:36 Blood Blood Culture - Final 06/04/21 21:43 Blood Blood Culture - Final 06/09/21 12:37 Toe Right Great Anaerobic Culture - Preliminary Post-procedural complaints: none Patient Feedback: Patient satisfied with anesthetic care.
--- NOTE | 2021-06-10 11:10 | PCOTNOTE ---
Attempted Occupational Therapy re-assess, patient has surgery on 06/09/2021, waiting for WB status prior to OT re-assess. Will follow.
[2021-06-10 11:53] LABS: Glucose Point of Care 275 mg/dl (65-105)
--- NOTE | 2021-06-10 13:06 | PM.PNGS ---
Progress Note: A&P Assessment and Plan (1) Osteomyelitis of great toe of right foot: Code(s): M86.9 - Osteomyelitis, unspecified Status: Acute Assessment and Plan: Doing well postop day 1. Continue to wear cast shoe and avoid trauma to the operative site. Can be up with heel touch weight-bearing and assistance. Will start dressing changes tomorrow. Continue IV antibiotics. (2) Diabetic foot infection: Code(s): E11.628 - Type 2 diabetes mellitus with other skin complications; L08.9 - Local infection of the skin and subcutaneous tissue, unspecified Status: Acute Assessment and Plan: Continue antibiotics. Subjective Subjective Date/Time Seen: 06/10/21 13:06 Post Op day: 1 Patient reports: no new complaints Exam Extrem: Right lower extremity: foot (Dressing dry and intact, no bloody drainage.) Objective Data Vital Signs Vital Signs: Vital Signs - 24 hr 06/09/21 13:15 06/09/21 13:30 06/09/21 13:44 Temperature Pulse Rate 82 85 83 Respiratory Rate 12 12 13 Blood Pressure 131/62 139/68 143/70 H Pulse Oximetry 99 93 98 06/09/21 14:00 06/09/21 14:20 06/09/21 14:35 Temperature 36.6 C 36.4 C Pulse Rate 82 82 84 Respiratory Rate 12 16 16 Blood Pressure 144/74 H 136/78 143/64 H Pulse Oximetry 97 96 96 06/09/21 15:05 06/09/21 16:05 06/09/21 16:38 Temperature 36.6 C 36.7 C Pulse Rate 70 89 84 Respiratory Rate 16 18 Blood Pressure 139/66 136/58 L Pulse Oximetry 97 97 06/09/21 20:00 06/10/21 00:00 06/10/21 04:00 Temperature 36.6 C 36.7 C 36.8 C Pulse Rate 83 89 101 H Respiratory Rate 20 20 20 Blood Pressure 129/66 120/53 L 134/84 Pulse Oximetry 97 96 95 06/10/21 08:20 06/10/21 08:29 Temperature Pulse Rate 60 Respiratory Rate Blood Pressure Pulse Oximetry 93 Intake/Output Intake/Output: Intake & Output 06/07/21 06/08/21 06/09/21 06/10/21 23:59 23:59 23:59 23:59 Intake Total 3780 1710 6178 770 Output Total 3161 100 875 300 Balance 1270 1610 1085 470 Meds/Results Medications: Active Medications Generic Name Dose Route Start Last Admin Trade Name Freq PRN Reason Stop Dose Admin Acetaminophen 500 mg 06/09/21 14:09 Acetaminophen 500 Mg Tablet PO Q6H PRN Mild Pain (1-3) or Fever Hydrocodone Bitart/Acetaminophen 1 tab 06/09/21 14:09 Hydrocodone/Acetaminophen (*Crx) 5-325 Mg Tablet PO Q4H PRN Pain Rated 4-6 Hydrocodone Bitart/Acetaminophen 1 tab 06/09/21 14:09 06/10/21 08:17 Hydrocodone/Acetaminophen (*Crx) 7.5-325 Mg Tablet PO 1 tab Q4H PRN Administration Pain Rated 7-10 Al Hydrox/Mg Hydrox/Simethicone 30 ml 06/09/21 21:14 06/09/21 22:00 Mag Hydrox/Al Hydrox/Simeth 30 Ml Udc PO 30 ml Q6H PRN Administration Indigestion Albuterol 2 puff 06/04/21 22:54 06/06/21 09:36 Albuterol Sulfate (*Sp) Aerosol 1 Puff INHALATION 2 puff Q4H PRN Administration Shortness Of Breath Or Wheezing Allopurinol 100 mg 06/05/21 08:00 06/10/21 08:24 Allopurinol 100 Mg Tablet PO 100 mg DAILY@0800 [facility] Administration Aspirin 81 mg 06/05/21 09:00 06/10/21 08:27 Aspirin 81 Mg Enteric Tablet PO 81 mg DAILY CINDI Administration Baclofen 10 mg 06/04/21 22:54 Baclofen 10 Mg Tablet PO BID PRN Muscle Spasm Budesonide/Formoterol Fumarate 2 puff 06/04/21 23:20 06/10/21 09:36 Budesonide/Form 160-4.5 Mcg (*Sp) INHALATION 2 puff Q12HRT [facility] Administration Buspirone HCl 15 mg 06/05/21 09:00 06/10/21 08:24 Buspirone Hcl 5 Mg Tablet PO 15 mg BID CINDI Administration Ergocalciferol 50,000 unit 06/16/21 09:00 Ergocalciferol 50,000 Unit Capsule PO Mo@0900 [facility] Fenofibrate 160 mg 06/05/21 18:00 06/09/21 16:38 Fenofibrate 160 Mg Tablet PO 160 mg QPM CINDI Administration Finasteride 5 mg 06/05/21 09:00 06/10/21 08:28 Finasteride 5 Mg Tablet PO 5 mg DAILY CINDI Administration Heparin Sodium (Porcine) 5,000 units
[2021-06-10] MEDS: SOD HYPOCHLORITE 1/4 STRENGTH 473 ML 1 APPLIC TOPICAL (15:23)
[2021-06-10] MEDS: SILVER SULFADIAZINE 1% CR 50 GM JAR (*BKC) 1 APPLIC TOPICAL (15:23)
[2021-06-10 16:58] LABS: Glucose Point of Care 266 mg/dl (65-105)
[2021-06-10] MEDS: FENOFIBRATE 160 MG TABLET PO (17:32)
[2021-06-10] MEDS: MONTELUKAST SODIUM 10 MG TABLET PO (21:46)
[2021-06-10] MEDS: PRAVASTATIN SODIUM 20 MG TABLET 40 MG PO (21:46)
[2021-06-10 21:59] LABS: Glucose Point of Care 231 mg/dl (65-105)
[2021-06-10] MEDS: ONDANSETRON INJ 4 MG/2 ML VIAL IV PUSH (23:42)
[2021-06-11] MEDS: ACETAMINOPHEN 500 MG TABLET PO (01:12)
[2021-06-11] MEDS: HYDROcodone/acetaminophen (*CRX) 7.5-325 MG TABLET 1 TAB PO ×4 (04:25→21:20)
[2021-06-11 06:00] VITALS: BP 127/60; PULSE 74; RESP 20; TEMP 36.6; O2SAT 93
[2021-06-11 06:14] LABS: Basophils Absolute Auto 0.1 K/mm3 (0.0-0.1); Basophils Percent Auto 0.6 % (0.2-1.2); Eosinophils Percent Auto 4.2 % (0-4.4); Hematocrit 36.3 % (42.0-52.0); Hemoglobin 11.5 g/dL (14.0-18.0); Immature Granulocyte Absolute 0.79 K/mm3 (0.00-0.031); Immature Granulocyte Percent A 3.4 % (0-0.5); Lymphocytes Absolute Auto 3.53 K/mm3 (0.9-3.2); Lymphocytes Percent Auto 15.4 % (18.3-44.2); Mean Corpuscular HGB Conc 31.7 g/dl (32-36); Mean Corpuscular Hemoglobin 29.7 pg (26-34); Mean Corpuscular Volume 93.8 fl (80-100); Mean Platelet Volume 10.5 fl (7.4-10.4); Monocytes Percent Auto 4.5 % (2.6-8.5); Neutrophils Absolute Auto 16.5 K/mm3 (1.3-6.7); Neutrophils Percent Auto 71.9 % (45.5-73.1); Nucleated Red Blood Cells Absolute Auto 0.4 K/mm3 (0.0-0.012); Nucleated Red Blood Cells Perc 1.8 % (0.0-0.2); Platelet Count Result 716 k/mm3 (150-375); Red Blood Count 3.87 M/mm3 (4.6-6.20); Red Cell Distribution Width 13.2 % (11.5-14.5)
[2021-06-11 06:34] LABS: Glucose Point of Care 205 mg/dl (65-105)
[2021-06-11 06:38] LABS: Anion Gap 6 mmol/L (8-16); Blood Urea Nitrogen 29 mg/dL (9-20); Calcium 8.4 mg/dL (8.4-10.2); Carbon Dioxide 28 mmol/L (22-30); Chloride 97 mmol/L (98-107); Estimated CRCL calculation 47 ml/min; Estimated Glomerular Filt Rate 41; Glucose 230 mg/dL (65-110); Potassium 4.6 mmol/L (3.4-5.0); Sodium 131 mmol/L (137-145)
[2021-06-11 08:16] LABS: Glucose Point of Care 183 mg/dl (65-105)
[2021-06-11] MEDS: allopurinoL 100 MG TABLET PO (08:44)
[2021-06-11] MEDS: busPIRone HCL 5 MG TABLET 15 MG PO ×2 (08:45→16:47)
[2021-06-11] MEDS: ASPIRIN 81 MG ENTERIC TABLET PO (08:45)
[2021-06-11] MEDS: HEPARIN SODIUM 5,000 UNITS/ML VIAL 5000 UNITS SUB-Q ×2 (08:45→21:05)
[2021-06-11] MEDS: VENLAFAXINE HCL 37.5 MG TABLET PO ×2 (08:45→16:49)
[2021-06-11] MEDS: FINASTERIDE 5 MG TABLET PO (08:45)
[2021-06-11 08:46] VITALS: PULSE 74
[2021-06-11] MEDS: MAGNESIUM OXIDE 400 MG TABLET PO (08:46)
[2021-06-11] MEDS: METOPROLOL SUCCINATE EXT REL 12.5 MG TABCR PO ×2 (08:46→16:48)
[2021-06-11] MEDS: LORATADINE 10 MG TABLET PO (08:46)
[2021-06-11] MEDS: TAMSULOSIN HCL 0.4 MG CAPSULE PO (08:47)
[2021-06-11] MEDS: PREGABALIN (*CRX) 50 MG CAPSULE 200 MG PO ×2 (08:47→16:48)
[2021-06-11] MEDS: MIDODRINE HCL 2.5 MG TABLET 5 MG BY MOUTH ×2 (08:47→14:49)
[2021-06-11] MEDS: PANTOPRAZOLE 40 MG TABLET PO (08:47)
[2021-06-11] MEDS: INSULIN ASPART (*BKC) 100 UNITS/ML SUB-Q ×5 (08:52→15:40)
[2021-06-11] MEDS: INSULIN GLARGINE (*BKC) 100 UNITS/ML 32 UNITS SUB-Q (08:52)
[2021-06-11] MEDS: SILVER SULFADIAZINE 1% CR 50 GM JAR (*BKC) 1 APPLIC TOPICAL (08:55)
[2021-06-11] MEDS: SOD HYPOCHLORITE 1/4 STRENGTH 473 ML 1 APPLIC TOPICAL (08:56)
--- NOTE | 2021-06-11 11:05 | PCNWS ---
Weekly nutritional screen. Patient is tolerating current diet with adequate intake. No weight loss reported. No nutritional needs at this time.
[2021-06-11 11:41] LABS: Glucose Point of Care 274 mg/dl (65-105)
[2021-06-11 14:00] VITALS: BP 133/82; PULSE 92; RESP 20; TEMP 36.3; O2SAT 99
[2021-06-11 15:37] LABS: Glucose Point of Care 278 mg/dl (65-105)
[2021-06-11 16:48] VITALS: PULSE 92
[2021-06-11] MEDS: FENOFIBRATE 160 MG TABLET PO (16:49)
--- NOTE | 2021-06-11 17:38 | PM.IMPN ---
Progress Note: A&P Assessment and Plan (1) Dry gangrene: Code(s): I96 - Gangrene, not elsewhere classified Status: Acute Assessment and Plan: Right first toe distal amputation 06/09 Continue Zosyn, antibiotic election per ID (2) Diabetic foot: Code(s): E11.8 - Type 2 diabetes mellitus with unspecified complications Status: Acute Assessment and Plan: Left side dressing 06/07 Increased pregabalin to 200mg bid. (3) Insulin dependent diabetes mellitus: Status: Chronic Assessment and Plan: 06/07 increased Lantus from 20 to 25 U daily 06/09 increased Lantus to 32 U, added premeal Novolog, continue SSI (low dose pre-op, then moderate dose) Diabetic diet 06/11/21 blood glucose near goal (4) Congestive heart failure: Qualifiers: Heart failure type: diastolic Heart failure chronicity: chronic Qualified Code(s): I50.32 - Chronic diastolic (congestive) heart failure Code(s): I50.9 - Heart failure, unspecified Status: Chronic Assessment and Plan: Appears to be euvolemic Daily intake and output Continue to monitor (5) Obstructive sleep apnea: Code(s): G47.33 - Obstructive sleep apnea (adult) (pediatric) Status: Chronic Assessment and Plan: Cannot tolerate cpap (6) Renal insufficiency: Code(s): N28.9 - Disorder of kidney and ureter, unspecified Status: Acute Assessment and Plan: BUN and creatinine near patient's baseline 06/08 1.7, 06/09 1.5, 06/10 1.8 Continue to monitor (7) Open wound of left forearm: Qualifiers: Encounter type: subsequent encounter Qualified Code(s): S51.802D - Unspecified open wound of left forearm, subsequent encounter Code(s): S51.802A - Unspecified open wound of left forearm, initial encounter Status: Acute Assessment and Plan: Due to IV infiltration with cefepime Wound care with Dakin's 1/4 strength, silvadine, dressing ordered Improving (8) History of hematologic malignancy: Code(s): 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, hematopoietic and related tissues Status: Acute Assessment and Plan: With associated myelofibrosis Follows at [facility] (9) History of CVA (cerebrovascular accident): Code(s): Z86.73 - Personal history of transient ischemic attack (TIA), and cerebral infarction without residual deficits Status: Chronic Assessment and Plan: Continue statin (10) HTN (hypertension) with goal to be determined: Code(s): I10 - Essential (primary) hypertension Status: Chronic Assessment and Plan: Reviewed and control adequate 06/09 Additional Plan 06/11/2021 patient is postop day 1 doing very well continues on Zosyn seen by surgery noted recommendations given today. He is tolerating p.o. diet. He is ambulating on his heel. PT, OT consulted, blood glucose near goal, continue current medical therapy Time Spent With Patient Time with patient: 25 - 35 minutes Subjective Date/time seen: 06/11/21 17:39 Patient doing okay has no complaints during my interview he is on the phone and is not able to disconnect for our conversation. He requested a change his right lower extremities postoperative bandage I advised that they will defer this to his surgeon and wound care. Interval history: Admitted 06/04 with diabetic foot infection, osteomyelitis. subsequently had reaction to Cefepime resulting in blistering of L forearm . Exam Narrative: HEENT: sclerae nonicteric, pharyngeal mucosa pink and intact NECK: No JVD CHEST: Clear to auscultation. Normal effort. HEART: NL S1/S2, regular, no murmur ABDOMEN: BS+, soft, nontender, no mass, no bruits EXTREMITIES: dressing right foot NEUROLOGIC: CN intact and symmetric to inspection. Alert. Oriented to person, place, and time. MUSCULOSKELETAL: Tone and strength symmetric. PSYCH: Mood and affect congruent Obje
[2021-06-11] MEDS: MONTELUKAST SODIUM 10 MG TABLET PO (21:04)
[2021-06-11] MEDS: PRAVASTATIN SODIUM 20 MG TABLET 40 MG PO (21:05)
[2021-06-11 21:11] LABS: Anion Gap 6 mmol/L (8-16); Blood Urea Nitrogen 27 mg/dL (9-20); Calcium 8.8 mg/dL (8.4-10.2); Carbon Dioxide 27 mmol/L (22-30); Chloride 99 mmol/L (98-107); Estimated CRCL calculation 49 ml/min; Estimated Glomerular Filt Rate 44; Glucose 290 mg/dL (65-110); Potassium 4.8 mmol/L (3.4-5.0); Sodium 132 mmol/L (137-145)
[2021-06-11 21:47] LABS: Glucose Point of Care 269 mg/dl (65-105)
[2021-06-11 22:00] VITALS: BP 142/70; PULSE 94; RESP 18; TEMP 36.6; O2SAT 94
[2021-06-12 06:00] VITALS: BP 151/57; PULSE 89; RESP 20; TEMP 36.1; O2SAT 97
[2021-06-12 06:26] LABS: Hematocrit 37.3 % (42.0-52.0); Hemoglobin 11.9 g/dL (14.0-18.0); Mean Corpuscular HGB Conc 31.9 g/dl (32-36); Mean Corpuscular Hemoglobin 29.9 pg (26-34); Mean Corpuscular Volume 93.7 fl (80-100); Mean Platelet Volume 10.5 fl (7.4-10.4); Platelet Count Result 747 k/mm3 (150-375); Red Blood Count 3.98 M/mm3 (4.6-6.20); Red Cell Distribution Width 13.4 % (11.5-14.5); White Blood Count 20.5 K/mm3 (4.5-10.0)
[2021-06-12 07:02] LABS: Glucose Point of Care 142 mg/dl (65-105)
[2021-06-12 08:03] LABS: Eosinophils Absolute Manual 0.41 K/mm3 (0.02-0.5); Eosinophils Percent Manual 2 % (0-4); Lymphocytes Absolute Manual 3.28 K/mm3 (1.1-4.5); Metamyelocytes Percent 2 %; Monocytes Absolute Manual 0.82 K/mm3 (0.1-0.90); Monocytes Percent Manual 4 % (3-9); Neutrophils Percent Manual 75 % (46-73); Promyelocytes Percent 1 %; Total Cells Counted 100
[2021-06-12] MEDS: INSULIN GLARGINE (*BKC) 100 UNITS/ML 32 UNITS SUB-Q (08:03)
[2021-06-12] MEDS: INSULIN ASPART (*BKC) 100 UNITS/ML SUB-Q ×4 (08:03→17:31)
[2021-06-12 08:04] LABS: Platelet Estimate Increased (Adequate)
[2021-06-12] MEDS: allopurinoL 100 MG TABLET PO (08:10)
[2021-06-12] MEDS: HEPARIN SODIUM 5,000 UNITS/ML VIAL 5000 UNITS SUB-Q ×2 (08:11→20:28)
[2021-06-12] MEDS: FINASTERIDE 5 MG TABLET PO (08:11)
[2021-06-12] MEDS: LORATADINE 10 MG TABLET PO (08:11)
[2021-06-12] MEDS: VENLAFAXINE HCL 37.5 MG TABLET PO ×2 (08:11→17:31)
[2021-06-12] MEDS: MAGNESIUM OXIDE 400 MG TABLET PO (08:11)
[2021-06-12] MEDS: ASPIRIN 81 MG ENTERIC TABLET PO (08:11)
[2021-06-12] MEDS: busPIRone HCL 5 MG TABLET 15 MG PO ×2 (08:11→17:30)
[2021-06-12 08:12] VITALS: PULSE 89
[2021-06-12] MEDS: PANTOPRAZOLE 40 MG TABLET PO (08:12)
[2021-06-12] MEDS: MIDODRINE HCL 2.5 MG TABLET 5 MG BY MOUTH ×2 (08:12→15:03)
[2021-06-12] MEDS: METOPROLOL SUCCINATE EXT REL 12.5 MG TABCR PO ×2 (08:12→17:30)
[2021-06-12] MEDS: TAMSULOSIN HCL 0.4 MG CAPSULE PO (08:13)
[2021-06-12] MEDS: PREGABALIN (*CRX) 50 MG CAPSULE 200 MG PO ×2 (08:13→17:31)
[2021-06-12] MEDS: SOD HYPOCHLORITE 1/4 STRENGTH 473 ML 1 APPLIC TOPICAL (08:18)
[2021-06-12] MEDS: SILVER SULFADIAZINE 1% CR 50 GM JAR (*BKC) 1 APPLIC TOPICAL (08:18)
[2021-06-12] MEDS: ALBUTEROL SULFATE (*SP) AEROSOL 1 PUFF 2 PUFF INHALATION ×2 (08:47→22:11)
[2021-06-12] MEDS: HYDROcodone/acetaminophen (*CRX) 7.5-325 MG TABLET 1 TAB PO ×2 (09:53→17:37)
[2021-06-12 13:06] LABS: Glucose Point of Care 217 mg/dl (65-105)
--- NOTE | 2021-06-12 13:23 | PM.IMPN ---
Progress Note: A&P Assessment and Plan (1) Dry gangrene: Code(s): I96 - Gangrene, not elsewhere classified Status: Acute Assessment and Plan: Right first toe distal amputation 06/09 Continue Zosyn, antibiotic election per ID 4 weeks total (2) Diabetic foot: Code(s): E11.8 - Type 2 diabetes mellitus with unspecified complications Status: Acute Assessment and Plan: Left side dressing 06/07 Increased pregabalin to 200mg bid. (3) Insulin dependent diabetes mellitus: Status: Chronic Assessment and Plan: 06/07 increased Lantus from 20 to 25 U daily 06/09 increased Lantus to 32 U, added premeal Novolog, continue SSI (low dose pre-op, then moderate dose) Diabetic diet 06/11/21 blood glucose near goal (4) Congestive heart failure: Qualifiers: Heart failure chronicity: chronic Heart failure type: diastolic Qualified Code(s): I50.32 - Chronic diastolic (congestive) heart failure Code(s): I50.9 - Heart failure, unspecified Status: Chronic Assessment and Plan: Appears to be euvolemic Daily intake and output Continue to monitor (5) Obstructive sleep apnea: Code(s): G47.33 - Obstructive sleep apnea (adult) (pediatric) Status: Chronic Assessment and Plan: Cannot tolerate cpap (6) Renal insufficiency: Code(s): N28.9 - Disorder of kidney and ureter, unspecified Status: Acute Assessment and Plan: BUN and creatinine near patient's baseline 06/08 1.7, 06/09 1.5, 06/10 1.8 06/12 1.5 Continue to monitor (7) Open wound of left forearm: Qualifiers: Encounter type: subsequent encounter Qualified Code(s): S51.802D - Unspecified open wound of left forearm, subsequent encounter Code(s): S51.802A - Unspecified open wound of left forearm, initial encounter Status: Acute Assessment and Plan: Due to IV infiltration with cefepime Wound care with Dakin's 1/4 strength, silvadine, dressing ordered Improving (8) History of hematologic malignancy: Code(s): 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, hematopoietic and related tissues Status: Acute Assessment and Plan: With associated myelofibrosis Follows at [facility] (9) History of CVA (cerebrovascular accident): Code(s): Z86.73 - Personal history of transient ischemic attack (TIA), and cerebral infarction without residual deficits Status: Chronic Assessment and Plan: Continue statin (10) HTN (hypertension) with goal to be determined: Code(s): I10 - Essential (primary) hypertension Status: Chronic Assessment and Plan: Reviewed and control adequate 06/09 Additional Plan 06/11/2021 patient is postop day 1 doing very well continues on Zosyn seen by surgery noted recommendations given today. He is tolerating p.o. diet. He is ambulating on his heel. PT, OT consulted, blood glucose near goal, continue current medical therapy 06/12/2021 patient is postop day 2 continues to do well remains on Zosyn per ID recommendation with surgery following performing wound care. He is tolerating p.o.. Renal function slowly improving. Anticipate discharge to Home w [facility] and IV Zosyn x 3 weeks when cleared by surgeon. Subjective Date/time seen: 06/12/21 13:23 Patient doing okay declines to go to group home facility would like to go home. He understands that he will need 3 more weeks of IV Zosyn and a PEG goal and will be placed. The patient agrees to line placement. Will discuss with skin care technician discharge planning for IV outpatient antibiotic therapy 3 x per day. Interval history: Admitted 06/04 with diabetic foot infection, osteomyelitis. subsequently had reaction to Cefepime resulting in blistering of L forearm. Exam Narrative: HEENT: sclerae nonicteric, pharyngeal mucosa pink and intact NECK: No JVD CHEST: Clear to auscultation. Normal effort. HE
[2021-06-12 17:30] VITALS: PULSE 89
[2021-06-12] MEDS: FENOFIBRATE 160 MG TABLET PO (17:31)
[2021-06-12 18:22] LABS: Glucose Point of Care 184 mg/dl (65-105)
[2021-06-12 18:23] LABS: Anion Gap 8 mmol/L (8-16); Blood Urea Nitrogen 24 mg/dL (9-20); Calcium 9.3 mg/dL (8.4-10.2); Carbon Dioxide 25 mmol/L (22-30); Chloride 102 mmol/L (98-107); Estimated CRCL calculation 53 ml/min; Estimated Glomerular Filt Rate 48; Glucose 233 mg/dL (65-110); Potassium 4.9 mmol/L (3.4-5.0); Sodium 135 mmol/L (137-145)
[2021-06-12] MEDS: MONTELUKAST SODIUM 10 MG TABLET PO (20:28)
[2021-06-12 20:35] VITALS: PULSE 87; RESP 20; O2SAT 96
[2021-06-12] MEDS: HYDROcodone/acetaminophen (*CRX) 5-325 MG TABLET 1 TAB PO (20:36)
[2021-06-12] MEDS: PRAVASTATIN SODIUM 20 MG TABLET 40 MG PO (20:45)
[2021-06-12 21:22] LABS: Glucose Point of Care 268 mg/dl (65-105)
[2021-06-12 22:00] VITALS: BP 163/69; PULSE 87; RESP 20; TEMP 36.8; O2SAT 96
[2021-06-13 06:00] VITALS: BP 136/63; PULSE 89; RESP 20; TEMP 36.4; O2SAT 92
[2021-06-13 07:13] LABS: Basophils Absolute Auto 0.1 K/mm3 (0.0-0.1); Basophils Percent Auto 0.7 % (0.2-1.2); Eosinophils Percent Auto 5.5 % (0-4.4); Hematocrit 40.5 % (42.0-52.0); Hemoglobin 12.6 g/dL (14.0-18.0); Immature Granulocyte Absolute 0.68 K/mm3 (0.00-0.031); Immature Granulocyte Percent A 3.6 % (0-0.5); Lymphocytes Absolute Auto 3.28 K/mm3 (0.9-3.2); Lymphocytes Percent Auto 17.5 % (18.3-44.2); Mean Corpuscular HGB Conc 31.1 g/dl (32-36); Mean Corpuscular Hemoglobin 30.3 pg (26-34); Mean Corpuscular Volume 97.4 fl (80-100); Mean Platelet Volume 10.6 fl (7.4-10.4); Monocytes Absolute Auto 1.1 K/mm3 (0.1-0.6); Monocytes Percent Auto 6.1 % (2.6-8.5); Neutrophils Absolute Auto 12.4 K/mm3 (1.3-6.7); Neutrophils Percent Auto 66.6 % (45.5-73.1); Nucleated Red Blood Cells Absolute Auto 0.4 K/mm3 (0.0-0.012); Nucleated Red Blood Cells Perc 2.1 % (0.0-0.2); Platelet Count Result 741 k/mm3 (150-375); Red Blood Count 4.16 M/mm3 (4.6-6.20); Red Cell Distribution Width 13.8 % (11.5-14.5); White Blood Count 18.7 K/mm3 (4.5-10.0)
[2021-06-13 07:41] LABS: Glucose Point of Care 189 mg/dl (65-105)
[2021-06-13] MEDS: ALBUTEROL SULFATE (*SP) AEROSOL 1 PUFF 2 PUFF INHALATION (08:29)
[2021-06-13] MEDS: INSULIN ASPART (*BKC) 100 UNITS/ML SUB-Q ×3 (09:19→13:18)
[2021-06-13] MEDS: allopurinoL 100 MG TABLET PO (09:23)
[2021-06-13] MEDS: hydrOXYzine HCL 10 MG TABLET PO (09:23)
[2021-06-13] MEDS: busPIRone HCL 5 MG TABLET 15 MG PO (09:23)
[2021-06-13] MEDS: PANTOPRAZOLE 40 MG TABLET PO (09:23)
[2021-06-13] MEDS: MAGNESIUM OXIDE 400 MG TABLET PO (09:24)
[2021-06-13] MEDS: TAMSULOSIN HCL 0.4 MG CAPSULE PO (09:24)
[2021-06-13] MEDS: LORATADINE 10 MG TABLET PO (09:24)
[2021-06-13] MEDS: MIDODRINE HCL 2.5 MG TABLET 5 MG BY MOUTH ×2 (09:24→14:30)
[2021-06-13] MEDS: ASPIRIN 81 MG ENTERIC TABLET PO (09:24)
[2021-06-13] MEDS: HEPARIN SODIUM 5,000 UNITS/ML VIAL 5000 UNITS SUB-Q (09:24)
[2021-06-13] MEDS: VENLAFAXINE HCL 37.5 MG TABLET PO (09:24)
[2021-06-13] MEDS: FINASTERIDE 5 MG TABLET PO (09:24)
[2021-06-13 09:25] VITALS: PULSE 72
[2021-06-13] MEDS: METOPROLOL SUCCINATE EXT REL 12.5 MG TABCR PO (09:25)
[2021-06-13] MEDS: INSULIN GLARGINE (*BKC) 100 UNITS/ML 32 UNITS SUB-Q (09:33)
[2021-06-13] MEDS: PREGABALIN (*CRX) 50 MG CAPSULE 200 MG PO (10:23)
[2021-06-13 11:11] LABS: Glucose Point of Care 222 mg/dl (65-105)
--- NOTE | 2021-06-13 11:22 | PM.PNGS ---
Progress Note: A&P Assessment and Plan (1) Osteomyelitis of great toe of right foot: Code(s): M86.9 - Osteomyelitis, unspecified Status: Acute Assessment and Plan: right great toe amputation site healing quite well. Okay to discharge from surgical perspective. I need to see him in 1 week. Needs to continue have the gauze dressing with foot and ankle wrap and cast shoe to avoid injury to the right great toe amputation site. Patient to go home on antibiotics with PICC line which I agree with as well. (2) Diabetic foot infection: Code(s): E11.628 - Type 2 diabetes mellitus with other skin complications; L08.9 - Local infection of the skin and subcutaneous tissue, unspecified Status: Acute Assessment and Plan: Will be receiving home antibiotics for osteomyelitis. Subjective Subjective Date/Time Seen: 06/13/21 11:22 Post Op day: 4 Patient reports: no new complaints, feels better and afebrile Review of Systems Review of Systems: All systems reviewed & are unremarkable except as noted in HPI and below Constitutional: Constitutional: Denies chills, Denies fever(s) and Denies headache(s) Neurologic: Denies confusion and Denies headache(s) Exam Const: General: comfortable and no acute distress; No confusion Orientation/consciousness: patient oriented x3 and No confusion Neuro: General: patient oriented x3, no focal motor deficits and No confusion Extrem: Right lower extremity: foot ( Great toe amp site healing well, erythema anterior flap but no sign infec) Psych: Affect: normal affect Insight: Good insight present (Psych) Judgement: Good judgement present (Psych) Objective Data Vital Signs Vital Signs: Vital Signs - 24 hr 06/12/21 17:30 06/12/21 20:35 06/12/21 22:00 Temperature 36.8 C Pulse Rate 89 87 87 Respiratory Rate 20 20 Blood Pressure 163/69 H Pulse Oximetry 96 96 06/13/21 06:00 06/13/21 09:25 Temperature 36.4 C L Pulse Rate 89 72 Respiratory Rate 20 Blood Pressure 136/63 Pulse Oximetry 92 Intake/Output Intake/Output: Intake & Output 06/10/21 06/11/21 06/12/21 06/13/21 23:59 23:59 23:59 23:59 Intake Total 2560 3870 3340 1250 Output Total 1100 1750 2300 400 Balance 1460 2120 1040 850 Meds/Results Medications: Active Medications Generic Name Dose Route Start Last Admin Trade Name Freq PRN Reason Stop Dose Admin Acetaminophen 500 mg 06/09/21 14:09 06/11/21 01:12 Acetaminophen 500 Mg Tablet PO 500 mg Q6H PRN Administration Mild Pain (1-3) or Fever Hydrocodone Bitart/Acetaminophen 1 tab 06/09/21 14:09 06/12/21 20:36 Hydrocodone/Acetaminophen (*Crx) 5-325 Mg Tablet PO 1 tab Q4H PRN Administration Pain Rated 4-6 Hydrocodone Bitart/Acetaminophen 1 tab 06/09/21 14:09 06/12/21 17:37 Hydrocodone/Acetaminophen (*Crx) 7.5-325 Mg Tablet PO 1 tab Q4H PRN Administration Pain Rated 7-10 Al Hydrox/Mg Hydrox/Simethicone 30 ml 06/09/21 21:14 06/09/21 22:00 Mag Hydrox/Al Hydrox/Simeth 30 Ml Udc PO 30 ml Q6H PRN Administration Indigestion Albuterol 2 puff 06/04/21 22:54 06/13/21 08:29 Albuterol Sulfate (*Sp) Aerosol 1 Puff INHALATION 2 puff Q4H PRN Administration Shortness Of Breath Or Wheezing Allopurinol 100 mg 06/05/21 08:00 06/13/21 09:23 Allopurinol 100 Mg Tablet PO 100 mg DAILY@0800 CINDI Administration Aspirin 81 mg 06/05/21 09:00 06/13/21 09:24 Aspirin 81 Mg Enteric Tablet PO 81 mg DAILY CINDI Administration Baclofen 10 mg 06/04/21 22:54 Baclofen 10 Mg Tablet PO BID PRN Muscle Spasm Budesonide/Formoterol Fumarate 2 puff 06/04/21 23:20 06/13/21 08:28 Budesonide/Form 160-4.5 Mcg (*Sp) INHALATION 2 puff Q12HRT CINDI Administration Buspirone HCl 15 mg 06/05/21 09:00 06/13/21 09:23 Buspirone Hcl 5 Mg Tablet PO 15 mg BID CINDI Administration Ergocalciferol 50,000 unit 06/16/21 09:00 Ergocalciferol 50,
--- NOTE | 2021-06-13 12:06 | PM.DS ---
DS: Admitting Diagnosis Admitting Diagnosis (1) Dry gangrene: Code(s): I96 - Gangrene, not elsewhere classified Status: Acute Assessment and Plan: Right toe CT of the foot Id and surgery consult Await cultures (2) Diabetic foot: Code(s): E11.8 - Type 2 diabetes mellitus with unspecified complications Status: Acute Assessment and Plan: Left side Continue Unna boot (3) Insulin dependent diabetes mellitus: Status: Acute Assessment and Plan: Patient is on insulin Accu-Cheks AC and HS Carb consistent diet (4) Congestive heart failure: Qualifiers: Heart failure type: diastolic Heart failure chronicity: chronic Qualified Code(s): I50.32 - Chronic diastolic (congestive) heart failure Code(s): I50.9 - Heart failure, unspecified Status: Chronic Assessment and Plan: Appears to be euvolemic Daily intake and output Continue to monitor (5) Obstructive sleep apnea: Code(s): G47.33 - Obstructive sleep apnea (adult) (pediatric) Status: Chronic Assessment and Plan: Patient is on CPAP Continue CPAP at bedtime (6) HTN (hypertension) with goal to be determined: Code(s): I10 - Essential (primary) hypertension Status: Chronic Assessment and Plan: Continue home meds (7) Renal insufficiency: Code(s): N28.9 - Disorder of kidney and ureter, unspecified Status: Acute Assessment and Plan: BUN and creatinine at patient's baseline Continue to monitor (8) History of CVA (cerebrovascular accident): Code(s): Z86.73 - Personal history of transient ischemic attack (TIA), and cerebral infarction without residual deficits Status: Chronic Assessment and Plan: Continue statin DS: Discharge Diagnosis Discharge Diagnosis (1) History of hematologic malignancy: Code(s): 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, hematopoietic and related tissues Status: Acute (2) Open wound of left forearm: Qualifiers: Encounter type: subsequent encounter Qualified Code(s): S51.802D - Unspecified open wound of left forearm, subsequent encounter Code(s): S51.802A - Unspecified open wound of left forearm, initial encounter Status: Acute (3) Diabetic foot infection: Code(s): E11.628 - Type 2 diabetes mellitus with other skin complications; L08.9 - Local infection of the skin and subcutaneous tissue, unspecified Status: Acute (4) Osteomyelitis of great toe of right foot: Code(s): M86.9 - Osteomyelitis, unspecified Status: Acute (5) Diabetic foot: Code(s): E11.8 - Type 2 diabetes mellitus with unspecified complications Status: Acute (6) Dry gangrene: Code(s): I96 - Gangrene, not elsewhere classified Status: Acute (7) Insulin dependent diabetes mellitus: Status: Chronic (8) Diabetic foot ulcer: Qualifiers: Diabetes mellitus type: type 2 Diabetic foot ulcer location: toe Laterality: right Non-pressure ulcer stage: with fat layer exposed Qualified Code(s): E11.621 - Type 2 diabetes mellitus with foot ulcer; L97.512 - Non-pressure chronic ulcer of other part of right foot with fat layer exposed Code(s): E11.621 - Type 2 diabetes mellitus with foot ulcer; L97.509 - Non-pressure chronic ulcer of other part of unspecified foot with unspecified severity Status: Acute (9) SIRS (systemic inflammatory response syndrome): Code(s): R65.10 - Systemic inflammatory response syndrome (SIRS) of non-infectious origin without acute organ dysfunction Status: Acute (10) Syncope: Code(s): R55 - Syncope and collapse Status: Acute (11) Leukocytosis: Qualifiers: Leukocytosis type: unspecified Qualified Code(s): D72.829 - Elevated white blood cell count, unspecified Code(s): D72.829 - Elevated white blood cell count, unspecified Status: Chronic (
[2021-06-13] MEDS: LIDOCAINE HCL 1% PF INJ 5 ML VIAL INFILTRATE (12:45)
[2021-06-13] MEDS: SILVER SULFADIAZINE 1% CR 50 GM JAR (*BKC) 1 APPLIC TOPICAL (14:31)
[2021-06-13] MEDS: SOD HYPOCHLORITE 1/4 STRENGTH 473 ML 1 APPLIC TOPICAL (14:31)
[2021-06-13 16:46] LABS: Glucose Point of Care 229 mg/dl (65-105)
[2021-06-13 18:30] LABS: Anion Gap 6 mmol/L (8-16); Blood Urea Nitrogen 24 mg/dL (9-20); Calcium 9.4 mg/dL (8.4-10.2); Carbon Dioxide 23 mmol/L (22-30); Chloride 102 mmol/L (98-107); Estimated CRCL calculation 53 ml/min; Estimated Glomerular Filt Rate 48; Glucose 236 mg/dL (65-110); Potassium 5.4 mmol/L (3.4-5.0); Sodium 131 mmol/L (137-145)
== END 2021-06-13 18:40 | disposition home health service (06) | DRG 617 ==
LOC: ANHED 21:51 → ANH3MEDSUR 06-09 00:35
PROVIDERS: Emergency Medicine; Family Medicine; Surgery; Admitting Provider Internal Medicine; Emergency Provider Family Medicine; PCP Internal Medicine; Visit Provider Hospitalist
PROC: 0Y6P0Z1 Detachment at Right 1st Toe, High, Open Approach (ICD-10-PCS; principal; 2021-06-09 11:30)
DX: E11.69 Type 2 diabetes mellitus with other specified complication (principal); E11.52 Type 2 diabetes mellitus with diabetic peripheral angiopathy with gangrene; M86.171 Other acute osteomyelitis, right ankle and foot; I96 Gangrene, not elsewhere classified; R65.10 Systemic inflammatory response syndrome (SIRS) of non-infectious origin without acute organ dysfunction; I50.32 Chronic diastolic (congestive) heart failure; I11.0 Hypertensive heart disease with heart failure; E11.621 Type 2 diabetes mellitus with foot ulcer; L97.512 Non-pressure chronic ulcer of other part of right foot with fat layer exposed; R55 Syncope and collapse; E11.42 Type 2 diabetes mellitus with diabetic polyneuropathy; E86.0 Dehydration; N40.0 Benign prostatic hyperplasia without lower urinary tract symptoms; N28.9 Disorder of kidney and ureter, unspecified; H10.9 Unspecified conjunctivitis; E66.9 Obesity, unspecified; G47.33 Obstructive sleep apnea (adult) (pediatric); Z68.33 Body mass index [BMI] 33.0-33.9, adult; Z79.4 Long term (current) use of insulin; Z86.73 Personal history of transient ischemic attack (TIA), and cerebral infarction without residual deficits; Z86.711 Personal history of pulmonary embolism; Z90.49 Acquired absence of other specified parts of digestive tract; Z90.81 Acquired absence of spleen; Z87.891 Personal history of nicotine dependence; Z89.412 Acquired absence of left great toe
CPT/HCPCS: 36415; 36569; 73700; 80048; 82948; 83605; 85025; 85027; 87040; 87070; 87075; 87077; 87147; 87186; 87205; 88305; 88311; 94640; 97110; 97116; 97162; 97166; 97530; 97535; 99285; A9270; C1751; J0690; J0692; J1170; J1644; J1815; J2250; J2370; J2405; J2543; J2704; J3010; J3370; J7030; J7120

== ENCOUNTER 2021-06-26 17:19 | Emergency (ER) | payer MEDICARE, SELFPAY ==
[2021-06-26 17:22] VITALS: BP 154/100; PULSE 93; RESP 22; TEMP 36.9; O2SAT 100
--- NOTE | 2021-06-26 18:20 | ED.GENADULT ---
HPI - General Adult General Chief complaint: Unspecified Stated complaint: bleeding from picc line Time Seen by Provider: 06/26/21 17:44 Source: patient History of Present Illness HPI narrative: Patient is a 61 y/o male complaining of bleeding from right arm PICC line site 2 hours ago. He states that he woke up from a nap and noticed some bleeding. He is getting IV antibiotics through his PICC line. There is no known alleviating or exacerbating factor. He has no pain at PICC line site. Related Data Home Medications Medication Instructions Recorded Confirmed fenofibrate 160 mg PO QPM 01/15/20 06/05/21 metformin 1,000 mg PO BID 01/15/20 06/05/21 tamsulosin 0.4 mg PO DAILY 01/15/20 06/05/21 albuterol sulfate 90 mcg/actuation 2 puff INHALATION Q4H PRN 11/08/20 06/05/21 aerosol inhaler allopurinol 100 mg tablet 100 mg PO DAILY 11/08/20 06/05/21 aspirin 81 mg tablet,delayed 81 mg PO DAILY 11/08/20 06/05/21 release budesonide-formoterol HFA 160 2 puff INHALATION DAILY 11/08/20 06/05/21 mcg-4.5 mcg/actuation aerosol inhaler cholecalciferol (vitamin D3) 1,250 1,250 mcg PO WEEKLY 11/08/20 06/05/21 mcg (50,000 unit) capsule finasteride 5 mg tablet 5 mg PO DAILY 11/08/20 06/05/21 insulin lispro 100 unit/mL See Rx Instructions .ROUTE .COMPLEX 11/08/20 06/05/21 subcutaneous solution midodrine 5 mg tablet See Rx Instructions .ROUTE 11/08/20 06/05/21 .COMPLEX tablet montelukast 10 mg tablet 10 mg PO HS 11/08/20 06/05/21 Trulicity 0.75 mg SUBCUT WEEKLY 04/11/21 06/05/21 baclofen 10 mg PO BID PRN 04/11/21 06/05/21 buspirone 15 mg PO BID 04/11/21 06/05/21 cyclobenzaprine 10 mg PO TID PRN 04/11/21 06/05/21 metoprolol succinate 12.5 mg PO BID 04/11/21 06/05/21 pravastatin 40 mg PO HS 04/11/21 06/05/21 silver sulfadiazine [SSD] 1 applic TOPICAL BID PRN 04/11/21 06/05/21 venlafaxine 37.5 mg PO BID 04/11/21 06/05/21 zolpidem 10 mg PO HS 04/11/21 06/05/21 Allergies Allergy/AdvReac Type Severity Reaction Status Date / Time naproxen Allergy Intermediate SWELLING Verified 06/04/21 20:31 iohexol Allergy Unknown Verified 06/04/21 20:31 [From contrast - CT, X-RAY] cefepime AdvReac Blister Verified 06/09/21 10:15 morphine AdvReac Vomiting Verified 06/04/21 21:14 Review of Systems Constitutional: Constitutional: Denies chills, Denies fever(s), Denies headache(s) and Denies weakness Eyes: Eyes: Denies blurry vision ENT: Denies headache(s) and Denies neck pain Cardiovascular: Cardiovascular: Denies chest pain and Denies dyspnea Respiratory: Respiratory: Denies cough and Denies dyspnea Gastrointestinal: Gastrointestinal: Denies abdominal pain, Denies diarrhea, Denies nausea and Denies vomiting Genitourinary: Genitourinary: Denies hematuria and Denies dysuria Musculoskeletal: Musculoskeletal: Denies back pain and Denies neck pain Integumentary/Breasts: Skin/Breast: Reports as per HPI and Reports other (bleeding from PICC line site) Neurologic: Denies headache(s) and Denies weakness PMFSH Past Medical History Medical History Anemia Anxiety BPH (benign prostatic hyperplasia) Chronic UTI (~2019) Congestive heart failure Diastolic dysfunction CVA (cerebral vascular accident) (~2014) Depression DM2 (diabetes mellitus, type 2) Enterobacter sepsis UTI History of CVA (cerebrovascular accident) History of hematologic malignancy HTN (hypertension) with goal to be determined Left great toe amputee (~04/2020) Leg mass Right leg mass excised Migraines Myelofibrosis Neuropathy Obstructive sleep apnea Noncompliant with CPAP Pulmonary embolism (~01/2020) Surgical History Surgical History H/O hernia repair H/O splenectomy (~08/2019) Hx of cholecystectomy Family History Family History Unknown Family history unknown Father , 75 Congestive heart f
--- NOTE | 2021-06-26 18:28 | PC.NURSE ---
Pt PICC line dressing changed. No further drainage noted.
== END 2021-06-26 18:58 | disposition home or self-care (01) ==
PROVIDERS: Emergency Provider Emergency Medicine; PCP Internal Medicine
DX: T82.838A Hemorrhage due to vascular prosthetic devices, implants and grafts, initial encounter (principal); N40.0 Benign prostatic hyperplasia without lower urinary tract symptoms; I50.30 Unspecified diastolic (congestive) heart failure; E11.40 Type 2 diabetes mellitus with diabetic neuropathy, unspecified; I11.0 Hypertensive heart disease with heart failure; G47.33 Obstructive sleep apnea (adult) (pediatric); Z89.412 Acquired absence of left great toe; Z86.73 Personal history of transient ischemic attack (TIA), and cerebral infarction without residual deficits; Z87.440 Personal history of urinary (tract) infections; Z79.899 Other long term (current) drug therapy; Z79.4 Long term (current) use of insulin; Z79.82 Long term (current) use of aspirin; F41.9 Anxiety disorder, unspecified; F32.9 Major depressive disorder, single episode, unspecified; Z90.81 Acquired absence of spleen
CPT/HCPCS: 80048; 85025; 99282

== ENCOUNTER 2021-06-30 13:48 | Outpatient (CLI) | payer MEDICARE, SELFPAY ==
--- NOTE | ~2021-06-30 | XR_ITS ---
XR toe 2nd RT min 2V DATE: 06/30/2021 14:21 INDICATION: Type 2 diabetes mellitus TECHNIQUE: 3 views COMPARISON: 06/04/2021 CT right foot FINDINGS: There is amputation of the first digit at the diametaphysis of the proximal phalanx. There is some irregularity at the amputation margin which may be postoperative, although osteomyelitis is n ot excluded. Consider correlation with three-phase radionuclide bone scan as clinically appropriate. IMPRESSION: Status post amputation of first digit; irregularity at the amputation margin of the proxi mal phalanx may be secondary to postoperative surgical change versus osteomyelitis. Recommend clinica l correlation and possibly 3 phase radionuclide bone scan as clinically appropriate Reviewed, dictated and finalized at location A. IMPRESSION: Status post amputation of first digit; irregularity at the amputati on margin of the proximal phalanx may be secondary to postoperative surgical ch amy versus osteomyelitis. Recommend clinical correlation and possibly 3 phase radionuclide bone scan as clinically appropriate
== END 2021-06-30 13:49 | disposition home or self-care (01) ==
LOC: ANHIMG 13:55
PROVIDERS: PCP Internal Medicine; Visit Provider Surgery
DX: E11.628 Type 2 diabetes mellitus with other skin complications (principal); L08.9 Local infection of the skin and subcutaneous tissue, unspecified; Z89.421 Acquired absence of other right toe(s)
CPT/HCPCS: 73660; 80048; 85025; 86140

== ENCOUNTER 2021-07-03 11:24 | Outpatient (RCR) | payer MEDICARE, SELFPAY ==
[2021-06-16 12:24] LABS: Basophils Absolute Auto 0.1 K/mm3 (0.0-0.1); Basophils Percent Auto 0.7 % (0.2-1.2); Eosinophils Absolute Auto 1.5 K/mm3 (0-0.3); Eosinophils Percent Auto 8.7 % (0-4.4); Hematocrit 39.2 % (42.0-52.0); Hemoglobin 12.7 g/dL (14.0-18.0); Immature Granulocyte Absolute 0.26 K/mm3 (0.00-0.031); Immature Granulocyte Percent A 1.6 % (0-0.5); Lymphocytes Absolute Auto 3.57 K/mm3 (0.9-3.2); Lymphocytes Percent Auto 21.4 % (18.3-44.2); Mean Corpuscular HGB Conc 32.4 g/dl (32-36); Mean Corpuscular Hemoglobin 30.2 pg (26-34); Mean Corpuscular Volume 93.1 fl (80-100); Mean Platelet Volume 10.8 fl (7.4-10.4); Monocytes Absolute Auto 1.2 K/mm3 (0.1-0.6); Monocytes Percent Auto 7.4 % (2.6-8.5); Neutrophils Absolute Auto 10.1 K/mm3 (1.3-6.7); Neutrophils Percent Auto 60.2 % (45.5-73.1); Nucleated Red Blood Cells Absolute Auto 0.1 K/mm3 (0.0-0.012); Nucleated Red Blood Cells Perc 0.4 % (0.0-0.2); Platelet Count Result 777 k/mm3 (150-375); Red Blood Count 4.21 M/mm3 (4.6-6.20); Red Cell Distribution Width 14.2 % (11.5-14.5); White Blood Count 16.7 K/mm3 (4.5-10.0)
[2021-06-16 12:36] LABS: Anion Gap 8 mmol/L (8-16); Carbon Dioxide 26 mmol/L (22-30); Chloride 104 mmol/L (98-107); Potassium 4.2 mmol/L (3.4-5.0); Sodium 138 mmol/L (137-145)
[2021-06-16 12:37] LABS: Blood Urea Nitrogen 36 mg/dL (9-20); CRP 1.8 mg/dL (<1.0); Calcium 10.1 mg/dL (8.4-10.2); Estimated Glomerular Filt Rate 41; Glucose 101 mg/dL (65-110)
[2021-06-19 12:28] LABS: Basophils Absolute Auto 0.2 K/mm3 (0.0-0.1); Basophils Percent Auto 1.2 % (0.2-1.2); Eosinophils Absolute Auto 1.4 K/mm3 (0-0.3); Eosinophils Percent Auto 9.9 % (0-4.4); Hematocrit 39.5 % (42.0-52.0); Hemoglobin 12.7 g/dL (14.0-18.0); Immature Granulocyte Absolute 0.15 K/mm3 (0.00-0.031); Immature Granulocyte Percent A 1.1 % (0-0.5); Lymphocytes Absolute Auto 2.71 K/mm3 (0.9-3.2); Lymphocytes Percent Auto 19.7 % (18.3-44.2); Mean Corpuscular HGB Conc 32.2 g/dl (32-36); Mean Corpuscular Hemoglobin 30.5 pg (26-34); Mean Corpuscular Volume 94.7 fl (80-100); Mean Platelet Volume 10.9 fl (7.4-10.4); Monocytes Absolute Auto 1.3 K/mm3 (0.1-0.6); Monocytes Percent Auto 9.7 % (2.6-8.5); Neutrophils Percent Auto 58.4 % (45.5-73.1); Platelet Count Result 762 k/mm3 (150-375); Red Blood Count 4.17 M/mm3 (4.6-6.20); Red Cell Distribution Width 14.4 % (11.5-14.5); White Blood Count 13.8 K/mm3 (4.5-10.0)
[2021-06-19 12:51] LABS: Anion Gap 7 mmol/L (8-16); Blood Urea Nitrogen 34 mg/dL (9-20); Calcium 10.1 mg/dL (8.4-10.2); Carbon Dioxide 28 mmol/L (22-30); Chloride 107 mmol/L (98-107); Estimated Glomerular Filt Rate 44; Glucose 122 mg/dL (65-110); Sodium 142 mmol/L (137-145)
[2021-06-23 13:41] LABS: Anion Gap 9 mmol/L (8-16); Basophils Absolute Auto 0.3 K/mm3 (0.0-0.1); Basophils Percent Auto 1.3 % (0.2-1.2); Blood Urea Nitrogen 28 mg/dL (9-20); CRP 1.8 mg/dL (<1.0); Calcium 10.6 mg/dL (8.4-10.2); Carbon Dioxide 25 mmol/L (22-30); Chloride 104 mmol/L (98-107); Eosinophils Absolute Auto 1.2 K/mm3 (0-0.3); Estimated Glomerular Filt Rate 52; Hemoglobin 13.5 g/dL (14.0-18.0); Immature Granulocyte Absolute 0.13 K/mm3 (0.00-0.031); Immature Granulocyte Percent A 0.7 % (0-0.5); Lymphocytes Absolute Auto 3.07 K/mm3 (0.9-3.2); Lymphocytes Percent Auto 15.8 % (18.3-44.2); Mean Corpuscular HGB Conc 32.9 g/dl (32-36); Mean Corpuscular Hemoglobin 30.1 pg (26-34); Mean Corpuscular Volume 91.3 fl (80-100); Mean Platelet Volume 10.8 fl (7.4-10.4); Monocytes Absolute Auto 1.6 K/mm3 (0.1-0.6); Neutrophils Absolute Auto 13.3 K/mm3 (1.3-6.7); Neutrophils Percent Auto 68.2 % (45.5-73.1); Nucleated Red Blood Cells Perc 0.1 % (0.0-0.2); Platelet Count Result 745 k/mm3 (150-375); Potassium 3.4 mmol/L (3.4-5.0); Red Blood Count 4.49 M/mm3 (4.6-6.20); Sodium 138 mmol/L (137-145); White Blood Count 19.4 K/mm3 (4.5-10.0)
[2021-06-23 13:54] LABS: Glucose 50 mg/dL (65-110)
[2021-06-26 12:08] LABS: Basophils Absolute Auto 0.3 K/mm3 (0.0-0.1); Basophils Percent Auto 1.3 % (0.2-1.2); Eosinophils Absolute Auto 1.7 K/mm3 (0-0.3); Eosinophils Percent Auto 9.3 % (0-4.4); Hematocrit 40.4 % (42.0-52.0); Hemoglobin 13.3 g/dL (14.0-18.0); Immature Granulocyte Absolute 0.13 K/mm3 (0.00-0.031); Immature Granulocyte Percent A 0.7 % (0-0.5); Lymphocytes Absolute Auto 2.44 K/mm3 (0.9-3.2); Lymphocytes Percent Auto 13.1 % (18.3-44.2); Mean Corpuscular HGB Conc 32.9 g/dl (32-36); Mean Corpuscular Hemoglobin 30.6 pg (26-34); Mean Corpuscular Volume 92.9 fl (80-100); Mean Platelet Volume 10.8 fl (7.4-10.4); Monocytes Absolute Auto 1.4 K/mm3 (0.1-0.6); Monocytes Percent Auto 7.4 % (2.6-8.5); Neutrophils Absolute Auto 12.7 K/mm3 (1.3-6.7); Neutrophils Percent Auto 68.2 % (45.5-73.1); Platelet Count Result 673 k/mm3 (150-375); Red Blood Count 4.35 M/mm3 (4.6-6.20); White Blood Count 18.6 K/mm3 (4.5-10.0)
[2021-06-26 12:19] LABS: Anion Gap 10 mmol/L (8-16); Blood Urea Nitrogen 34 mg/dL (9-20); Calcium 10.4 mg/dL (8.4-10.2); Carbon Dioxide 25 mmol/L (22-30); Chloride 104 mmol/L (98-107); Estimated Glomerular Filt Rate 39; Glucose 141 mg/dL (65-110); Potassium 4.1 mmol/L (3.4-5.0); Sodium 139 mmol/L (137-145)
[2021-06-30 13:13] LABS: Anion Gap 9 mmol/L (8-16); Blood Urea Nitrogen 41 mg/dL (9-20); CRP 2.1 mg/dL (<1.0); Calcium 10.1 mg/dL (8.4-10.2); Carbon Dioxide 24 mmol/L (22-30); Chloride 104 mmol/L (98-107); Estimated Glomerular Filt Rate 41; Glucose 114 mg/dL (65-110); Potassium 4.5 mmol/L (3.4-5.0); Sodium 137 mmol/L (137-145)
[2021-06-30 13:14] LABS: Hematocrit 40.7 % (42.0-52.0); Hemoglobin 13.2 g/dL (14.0-18.0); Mean Corpuscular HGB Conc 32.4 g/dl (32-36); Mean Corpuscular Hemoglobin 30.5 pg (26-34); Mean Platelet Volume 10.9 fl (7.4-10.4); Platelet Count Result 618 k/mm3 (150-375); Red Blood Count 4.33 M/mm3 (4.6-6.20); Red Cell Distribution Width 14.1 % (11.5-14.5); White Blood Count 21.9 K/mm3 (4.5-10.0)
[2021-06-30 17:29] LABS: Platelet Estimate Increased (Adequate)
[2021-06-30 17:30] LABS: Anisocytosis 1+ (NORMAL)
[2021-07-03 12:26] LABS: Basophils Absolute Auto 0.2 K/mm3 (0.0-0.1); Eosinophils Absolute Auto 1.9 K/mm3 (0-0.3); Eosinophils Percent Auto 9.8 % (0-4.4); Hemoglobin 13.1 g/dL (14.0-18.0); Immature Granulocyte Absolute 0.12 K/mm3 (0.00-0.031); Immature Granulocyte Percent A 0.6 % (0-0.5); Lymphocytes Absolute Auto 2.68 K/mm3 (0.9-3.2); Lymphocytes Percent Auto 13.6 % (18.3-44.2); Mean Corpuscular HGB Conc 32.8 g/dl (32-36); Mean Corpuscular Hemoglobin 30.8 pg (26-34); Mean Corpuscular Volume 94.1 fl (80-100); Mean Platelet Volume 10.9 fl (7.4-10.4); Monocytes Absolute Auto 1.4 K/mm3 (0.1-0.6); Monocytes Percent Auto 6.9 % (2.6-8.5); Neutrophils Absolute Auto 13.4 K/mm3 (1.3-6.7); Neutrophils Percent Auto 68.1 % (45.5-73.1); Platelet Count Result 559 k/mm3 (150-375); Red Blood Count 4.25 M/mm3 (4.6-6.20); White Blood Count 19.7 K/mm3 (4.5-10.0)
[2021-07-03 12:32] LABS: Anion Gap 12 mmol/L (8-16); Blood Urea Nitrogen 34 mg/dL (9-20); Calcium 9.8 mg/dL (8.4-10.2); Carbon Dioxide 24 mmol/L (22-30); Chloride 104 mmol/L (98-107); Estimated Glomerular Filt Rate 44; Glucose 147 mg/dL (65-110); Potassium 4.5 mmol/L (3.4-5.0); Sodium 140 mmol/L (137-145)
== END 2021-09-14 23:59 | disposition home or self-care (01) ==
LOC: HOME HLTH 11:24
PROVIDERS: PCP Internal Medicine; Visit Provider Internal Medicine Infectious Disease
DX: E11.621 Type 2 diabetes mellitus with foot ulcer (principal); M86.171 Other acute osteomyelitis, right ankle and foot; I96 Gangrene, not elsewhere classified
CPT/HCPCS: 80048; 85025; 86140

== ENCOUNTER 2021-08-15 12:26 | Outpatient (CLI) | payer MEDICARE, SELFPAY ==
--- NOTE | ~2021-08-15 | MR_ITS ---
EXAMINATION: MR cervical spine wo con DATE: 08/15/2021 13:38 INDICATION: Cervical radiculopathy. TECHNIQUE: Magnetic resonance imaging (MRI) of the cervical spine was performed without intravenous c ontrast. Sequences included sagittal T2-weighted FSE, sagittal STIR FSE, sagittal T1-weighted FSE, ax ial MERGE, and axial T2-weighted FSE. COMPARISON: None FINDINGS: There is 11 degrees levoscoliosis of cervicothoracic spine. There is mild kyphosis of cervi isaiah spine. Vertebral body heights are normal. There is mildly decreased disc height at C5-C6. The spi nal cord signal intensity is normal. The following disc levels are specifically discussed: C2-C3: The disc does not extend beyond the endplate margin. There is mild bilateral uncovertebral donis nt osteoarthritis. There is severe bilateral facet joint osteoarthritis. There is mild left neural fo raminal stenosis. There is no central canal stenosis. C3-C4: There is a central extrusion. There is mild bilateral uncovertebral joint osteoarthritis. Ther e is moderate left facet joint osteoarthritis. There is ankylosis of right facet joint with severe hy pertrophy. There is moderate right and mild left neural foraminal stenosis. There is mild central can al stenosis. C4-C5: The disc does not extend beyond the endplate margin. There is mild bilateral uncovertebral donis nt hypertrophy. There is ankylosis of right facet joint with severe hypertrophy. There is mild right neural foraminal stenosis. There is no central canal stenosis. C5-C6: There is a left central extrusion. There is moderate bilateral uncovertebral joint osteoarthri tis. There is severe right facet joint osteoarthritis. There is mild bilateral neural foraminal steno sis. There is mild central canal stenosis. C6-C7: The disc does not extend beyond the endplate margin. There is mild bilateral uncovertebral donis nt osteoarthritis. There is no facet joint osteoarthritis. There is no neural foraminal stenosis. The re is no central canal stenosis. C7-T1: The disc does not extend beyond the endplate margin. There is no uncovertebral joint osteoarth ritis. There is severe bilateral facet joint osteoarthritis. There is mild bilateral neural foraminal stenosis. There is no central canal stenosis. IMPRESSION: 1. Moderate cervical spondylosis. 2. Cervicothoracic levoscoliosis. Reviewed, dictated and finalized at location A.
== END 2021-08-15 12:27 | disposition home or self-care (01) ==
PROVIDERS: PCP Internal Medicine; Visit Provider Orthopaedic Surgery
DX: M47.812 Spondylosis without myelopathy or radiculopathy, cervical region (principal); M54.12 Radiculopathy, cervical region; M41.83 Other forms of scoliosis, cervicothoracic region
CPT/HCPCS: 72141

== ENCOUNTER 2022-07-10 21:55 | Emergency (ER) | payer MEDICARE, SELFPAY ==
--- NOTE | ~2022-07-10 | XR_ITS ---
EXAMINATION: XR chest 2V 07/10/2022 23:02 INDICATION: Weakness. PROCEDURE: 2 view chest COMPARISON: Comparison to multiple prior studies sequentially, with oldest reviewed study dated 05/2020. FINDINGS: The lungs are clear. The cardiomediastinal silhouette is within normal limits. There are no pleural effusions. There is no pneumothorax suspected. IMPRESSION: 1: NO ACUTE CARDIOPULMONARY DISEASE. Reviewed, dictated and finalized at location A.
[2022-07-10 22:04] VITALS: BP 137/82; PULSE 103; RESP 18; O2SAT 92
[2022-07-10 22:16] VITALS: BP 153/106; O2SAT 90
[2022-07-10 22:31] VITALS: BP 135/115; PULSE 105; RESP 10
[2022-07-10 22:46] VITALS: BP 119/78; PULSE 89
--- NOTE | 2022-07-10 23:30 | PC.NURSE ---
Transferred pt care to EDUARDO Roberts
[2022-07-11 00:18] LABS: Basophils Absolute Auto 0.1 K/mm3 (0.0-0.1); Basophils Percent Auto 0.6 % (0.2-1.2); Eosinophils Absolute Auto 0.7 K/mm3 (0-0.3); Eosinophils Percent Auto 4.1 % (0-4.4); Hematocrit 49.8 % (42.0-52.0); Hemoglobin 16.7 g/dL (14.0-18.0); Immature Granulocyte Absolute 0.19 K/mm3 (0.00-0.031); Immature Granulocyte Percent A 1.1 % (0-0.5); Lymphocytes Absolute Auto 2.92 K/mm3 (0.9-3.2); Lymphocytes Percent Auto 17.2 % (18.3-44.2); Mean Corpuscular HGB Conc 33.5 g/dl (32-36); Mean Corpuscular Hemoglobin 30.6 pg (26-34); Mean Corpuscular Volume 91.4 fl (80-100); Mean Platelet Volume 10.7 fl (7.4-10.4); Monocytes Absolute Auto 1.3 K/mm3 (0.1-0.6); Monocytes Percent Auto 7.7 % (2.6-8.5); Neutrophils Absolute Auto 11.8 K/mm3 (1.3-6.7); Neutrophils Percent Auto 69.3 % (45.5-73.1); Nucleated Red Blood Cells Absolute Auto 0.1 K/mm3 (0.0-0.012); Nucleated Red Blood Cells Perc 0.4 % (0.0-0.2); Platelet Count Result 635 k/mm3 (150-375); Red Blood Count 5.45 M/mm3 (4.6-6.20); Red Cell Distribution Width 15.4 % (11.5-14.5)
[2022-07-11 00:27] LABS: Alanine Aminotransferase 19 U/L (6-50); Albumin Level 4.3 g/dL (3.5-5.1); Alkaline Phosphatase 65 U/L (38-126); Anion Gap 11 mmol/L (8-16); Aspartate Amino Transferase 35 U/L (17-59); Bilirubin,Total 0.5 mg/dL (0.2-1.3); Blood Urea Nitrogen 22 mg/dL (9-20); Calcium 9.8 mg/dL (8.4-10.2); Carbon Dioxide 26 mmol/L (22-30); Chloride 103 mmol/L (98-107); Estimated Glomerular Filt Rate 56; Glucose 177 mg/dL (65-110); Potassium 4.3 mmol/L (3.4-5.0); Sodium 140 mmol/L (137-145)
--- NOTE | 2022-07-11 00:27 | ECG_ITS ---
Measurements Intervals [place] Rate: 101 P: 35 MA: 163 QRS: -1 QRSD: 92 T: 48 QT: 362 QTc: 469 Interpretive Statements SINUS TACHYCARDIA FREQUENT VENTRICULAR PREMATURE COMPLEXES CANNOT RULE OUT SEPTAL INFARCT, AGE INDETERMINATE BASELINE ARTIFACT- I, II, AVR, AVL, AVF ABNORMAL ECG COMPARED TO ECG 04/11/2021 00:16:14 FREQUENT VENTRICULAR PREMATURE COMPLEXES NOW PRESENT CANNOT RULE OUT SEPTAL INFARCT, AGE INDETERMINATE NOW PRESENT Electronically Signed On 07-11-2022 8:50:19 CDT by Phillip Rodriguez D.O.
[2022-07-11 00:38] LABS: Troponin I 0.026 ng/mL (0.000-0.034)
--- NOTE | 2022-07-11 01:28 | ED.WEAKNESS ---
HPI - Weakness General Chief complaint: Weakness Stated complaint: GEN WEAKNESS Time Seen by Provider: 07/10/22 22:15 History of Present Illness HPI Narrative: patient presents here stating that he was feeling too weak to go have a bowel movement by himself, so he called EMS to come here. He denies any chest pain, difficulty breathing, abdominal pain, headache, fevers or chills, nausea or vomiting. Related Data Home Medications Medication Instructions Recorded Confirmed fenofibrate 160 mg tablet 160 mg PO QPM 01/15/20 03/23/22 metformin 1,000 mg tablet 1,000 mg PO BID 01/15/20 03/23/22 tamsulosin 0.4 mg capsule 0.4 mg PO DAILY 01/15/20 03/23/22 albuterol sulfate 90 mcg/actuation 2 puff inhalation Q4H PRN 11/08/20 03/23/22 aerosol inhaler Shortness Of Breath Or Wheezing allopurinol 100 mg tablet 100 mg PO DAILY 11/08/20 03/23/22 aspirin 81 mg tablet,delayed 81 mg PO DAILY 11/08/20 03/23/22 release (Adult Low Dose Aspirin) budesonide-formoterol HFA 160 2 puff inhalation DAILY 11/08/20 03/23/22 mcg-4.5 mcg/actuation aerosol inhaler (Symbicort) cholecalciferol (vitamin D3) 1,250 1,250 mcg PO WEEKLY 11/08/20 03/23/22 mcg (50,000 unit) capsule finasteride 5 mg tablet 5 mg PO DAILY 11/08/20 03/23/22 insulin lispro 100 unit/mL See Rx Instructions .Route .COMPLEX 11/08/20 03/23/22 subcutaneous solution (Humalog U-100 Insulin) montelukast 10 mg tablet 10 mg PO HS 11/08/20 03/23/22 cyclobenzaprine 10 mg tablet 10 mg PO TID PRN Muscle Spasm 04/11/21 03/23/22 dulaglutide 0.75 mg/0.5 mL 0.75 mg subcut WEEKLY 04/11/21 03/23/22 subcutaneous pen injector (Trulicity) metoprolol succinate 25 mg 12.5 mg PO BID 04/11/21 03/23/22 tablet,extended release 24 hr pravastatin 40 mg tablet 40 mg PO HS 04/11/21 03/23/22 venlafaxine 37.5 mg tablet 37.5 mg PO BID 04/11/21 03/23/22 zolpidem 10 mg tablet 10 mg PO HS 04/11/21 03/23/22 Allergies Allergy/AdvReac Type Severity Reaction Status Date / Time naproxen Allergy Intermediate SWELLING Verified 07/28/21 13:52 iohexol Allergy Unknown Verified 07/28/21 13:52 [From contrast - CT, X-RAY] cefepime AdvReac Blister Verified 07/28/21 13:52 morphine AdvReac Vomiting Verified 07/28/21 13:52 Review of Systems Review of Systems: CONST: No fever. Endorses generalized weakness HEENT: No sore throat C/V: No chest pain RESP: No cough GI: No abdominal pain : No dysuria. M/S: No joint pain. SKIN: No rash. NEURO: [No headache or focal numbness or weakness] PSYCH: [No depression] PMFSH Past Medical History Medical History Anemia Anxiety BPH (benign prostatic hyperplasia) Chronic UTI (~2019) Claustrophobia Congestive heart failure Diastolic dysfunction CVA (cerebral vascular accident) (~2014) Depression Diabetes DM2 (diabetes mellitus, type 2) Enterobacter sepsis UTI Fracture of proximal end of left humerus History of CVA (cerebrovascular accident) History of hematologic malignancy HTN (hypertension) with goal to be determined Left cervical radiculopathy Left great toe amputee (~04/2020) Leg mass Right leg mass excised Migraines MRSA (methicillin resistant Staphylococcus aureus) Myelofibrosis Neuropathy Obstructive sleep apnea Noncompliant with CPAP PE (pulmonary thromboembolism) Pulmonary embolism (~01/2020) Tachycardia Surgical History Surgical History Amputation of right great toe H/O hernia repair H/O splenectomy (~08/2019) Hx of cholecystectomy Family History Family History Unknown Family history unknown Father , 75 Congestive heart failure Mother , 74 Brain bleed Sibling , Sister Cancer Dementia Social History Social History Social History: Patient is listed as a full code. Patient drinks 3 cups of caffein
== END 2022-07-11 03:19 | disposition home or self-care (01) ==
PROVIDERS: Emergency Provider Emergency Medicine; PCP Internal Medicine
DX: R53.1 Weakness (principal); K59.00 Constipation, unspecified; E11.40 Type 2 diabetes mellitus with diabetic neuropathy, unspecified; I10 Essential (primary) hypertension; D75.81 Myelofibrosis; G47.33 Obstructive sleep apnea (adult) (pediatric); F41.9 Anxiety disorder, unspecified; F32.A Depression, unspecified; N40.0 Benign prostatic hyperplasia without lower urinary tract symptoms; Z86.2 Personal history of diseases of the blood and blood-forming organs and certain disorders involving the immune mechanism; Z87.440 Personal history of urinary (tract) infections; Z86.73 Personal history of transient ischemic attack (TIA), and cerebral infarction without residual deficits; Z86.14 Personal history of Methicillin resistant Staphylococcus aureus infection; Z86.711 Personal history of pulmonary embolism; Z79.82 Long term (current) use of aspirin; Z79.84 Long term (current) use of oral hypoglycemic drugs; Z79.4 Long term (current) use of insulin; Z89.412 Acquired absence of left great toe; R00.0 Tachycardia, unspecified; I49.3 Ventricular premature depolarization; R94.31 Abnormal electrocardiogram [ECG] [EKG]
CPT/HCPCS: 36415; 71046; 80053; 84484; 85025; 93005; 99284

== ENCOUNTER 2022-07-31 01:32 | Day surgery (SDC) | payer MEDICARE, SELFPAY ==
[2022-07-17 11:28] VITALS: BMI 36.2
[2022-07-31 09:59] VITALS: BP 151/78; PULSE 101; RESP 16; TEMP 36.4; O2SAT 96
--- NOTE | 2022-07-31 10:05 | PM.HPGS ---
History of Present Illness History of Present Illness Consent: Risks, benefits, and alternatives have been discussed and questions answered. Patient agrees to proceed with procedure. Chief complaint: positive cologuard Narrative: Jeremías Gaines is a 62 year old male Presents for colonoscopy. Recent Cologuard test was noted to be positive. Patient reports that his weight appetite are normal. He does occasional have blood in his stools attributed to hemorrhoids. Patient has a history of a toe amputation. He does have a tendency to constipation. And occasionally will have discomfort from his hemorrhoids with occasional bleeding. Patient denies any weight loss. He has a recent diagnosis of diabetes in a distant history of a CVA. Family history is noncontributory. Review of Systems Review of Systems: Review of systems noncontributory. [facility] Past Medical History Medical History Anemia Anxiety BPH (benign prostatic hyperplasia) Chronic UTI (~2019) Claustrophobia Congestive heart failure Diastolic dysfunction CVA (cerebral vascular accident) (~2014) Depression Diabetes DM2 (diabetes mellitus, type 2) Enterobacter sepsis UTI Fracture of proximal end of left humerus History of CVA (cerebrovascular accident) History of hematologic malignancy HTN (hypertension) with goal to be determined Left cervical radiculopathy Left great toe amputee (~04/2020) Leg mass Right leg mass excised Migraines MRSA (methicillin resistant Staphylococcus aureus) Myelofibrosis Neuropathy Obstructive sleep apnea Noncompliant with CPAP PE (pulmonary thromboembolism) Pulmonary embolism (~01/2020) Tachycardia Surgical History Surgical History Amputation of right great toe H/O hernia repair H/O splenectomy (~08/2019) Hx of cholecystectomy Family History Family History Unknown Family history unknown Father , 75 Congestive heart failure Mother , 74 Brain bleed Sibling , Sister Cancer Dementia Social History Social History Social History: Patient is listed as a full code. Patient drinks 3 cups of caffeine daily Smoking status: Current some day smoker Tobacco type: cigars Smoking end date: 10/18/94 Additional smoking assessment comments: Pt denies that he was a smoker. Alcohol intake: never Alcohol use details: 1/month Substance use: never Substance use type: does not use Living arrangements: with family Gender identity (if verbalized by the patient): Male Sexual Orientation (if Verbalized by the Patient): Straight or Heterosexual Spiritual care concerns: No Agree to blood products: Yes Meds Home Medications and Allergies Home Medications Medication Instructions Recorded Confirmed Type fenofibrate 160 mg tablet 160 mg PO QPM 01/15/20 07/31/22 History metformin 1,000 mg tablet 1,000 mg PO BID 01/15/20 07/31/22 History magnesium oxide 400 mg (241.3 mg 400 mg PO QAM #30 tabs 01/31/20 07/31/22 Rx magnesium) tablet albuterol sulfate 90 mcg/actuation 2 puff inhalation Q4H PRN 11/08/20 07/31/22 History aerosol inhaler Shortness Of Breath Or Wheezing allopurinol 100 mg tablet 100 mg PO DAILY 11/08/20 07/31/22 History aspirin 81 mg tablet,delayed 81 mg PO DAILY 11/08/20 07/31/22 History release (Adult Low Dose Aspirin) budesonide-formoterol HFA 160 2 puff inhalation DAILY 11/08/20 07/31/22 History mcg-4.5 mcg/actuation aerosol inhaler (Symbicort) cholecalciferol (vitamin D3) 1,250 1,250 mcg PO WEEKLY 11/08/20 07/31/22 History mcg (50,000 unit) capsule finasteride 5 mg tablet 5 mg PO DAILY 11/08/20 07/31/22 History montelukast 10 mg tablet 10 mg PO HS 11/08/20 07/31/22 History cyclobenzaprine 10 mg tablet 10 mg PO TID PRN Muscle Spasm 04/11/21
[2022-07-31] MEDS: LACTATED RINGERS 1,000 ML 150 ML IV CONT (10:11)
[2022-07-31 10:12] LABS: Glucose Point of Care 199 mg/dl (65-105)
--- NOTE | 2022-07-31 10:25 | WPDANESEPPF ---
Anes - Initial Pre Proc Eval Procedure: Operation Date: 07/31/22 11:00 Proposed Procedures p Colonoscopy - Chaitanya Piedra MD Date/Time: 07/31/22 10:25 Surgeon: Chaitanya Piedra MD Pre Op Diagnosis: positive cologuard Patient Data Age: 62 Gender: M Height: 1.7 m Weight: 105 kg Last Vital Signs Temp 97.5 F L 07/31/22 09:59 Pulse 101 H 07/31/22 09:59 Resp 16 07/31/22 09:59 BP 151/78 H 07/31/22 09:59 Pulse Ox 96 07/31/22 09:59 O2 Del Method Room Air 07/31/22 09:59 Allergies Allergy/AdvReac Type Severity Reaction Status Date / Time naproxen Allergy Intermediate SWELLING Verified 07/31/22 09:56 iohexol Allergy Unknown Verified 07/31/22 09:56 [From contrast - CT, X-RAY] cefepime AdvReac Blister Verified 07/31/22 09:56 Home Medications Medication Instructions Recorded Confirmed Type fenofibrate 160 mg tablet 160 mg PO QPM 01/15/20 07/31/22 History metformin 1,000 mg tablet 1,000 mg PO BID 01/15/20 07/31/22 History magnesium oxide 400 mg (241.3 mg 400 mg PO QAM #30 tabs 01/31/20 07/31/22 Rx magnesium) tablet albuterol sulfate 90 mcg/actuation 2 puff inhalation Q4H PRN 11/08/20 07/31/22 History aerosol inhaler Shortness Of Breath Or Wheezing allopurinol 100 mg tablet 100 mg PO DAILY 11/08/20 07/31/22 History aspirin 81 mg tablet,delayed 81 mg PO DAILY 11/08/20 07/31/22 History release (Adult Low Dose Aspirin) budesonide-formoterol HFA 160 2 puff inhalation DAILY 11/08/20 07/31/22 History mcg-4.5 mcg/actuation aerosol inhaler (Symbicort) cholecalciferol (vitamin D3) 1,250 1,250 mcg PO WEEKLY 11/08/20 07/31/22 History mcg (50,000 unit) capsule finasteride 5 mg tablet 5 mg PO DAILY 11/08/20 07/31/22 History montelukast 10 mg tablet 10 mg PO HS 11/08/20 07/31/22 History cyclobenzaprine 10 mg tablet 10 mg PO TID PRN Muscle Spasm 04/11/21 07/31/22 History dulaglutide 0.75 mg/0.5 mL 0.75 mg subcut WEEKLY 04/11/21 07/31/22 History [facility] metoprolol succinate 25 mg 12.5 mg PO BID 04/11/21 07/31/22 History tablet,extended release 24 hr pravastatin 40 mg tablet 40 mg PO HS 04/11/21 07/31/22 History venlafaxine 37.5 mg tablet 37.5 mg PO BID 04/11/21 07/31/22 History zolpidem 10 mg tablet 10 mg PO HS 04/11/21 07/31/22 History silver sulfadiazine 1 % topical 1 applic topical DAILY 10 days 06/13/21 07/31/22 Rx cream (Silvadene) sodium hypochlorite 0.125 % 1 applic topical DAILY 10 days 06/13/21 07/31/22 Rx solution (Dakin's Solution) midodrine 5 mg tablet See Rx Instructions .Route 08/06/21 07/31/22 Rx .COMPLEX #60 tabs loratadine 10 mg tablet 10 mg PO QAM #30 tabs 11/03/21 07/31/22 Rx polyethylene glycol 3350 17 17 g PO DAILY #238 grams 03/06/22 07/31/22 Rx gram/dose oral powder (Miralax) peg 3350-electrolytes 236 240 ml PO Q10M #4,000 mL 06/29/22 07/31/22 Rx gram-22.74 gram-6.74 gram-5.86 gram solution (Golytely) furosemide 1 tab-cap PO DAILY 07/17/22 07/31/22 History insulin aspart U-100 100 unit/mL See Rx Instructions .Route .COMPLEX 07/17/22 07/31/22 History (3 mL) subcutaneous pen (Novolog Flexpen U-100 Insulin aspart) insulin detemir U-100 100 unit/mL See Rx Instructions .Route .COMPLEX 07/17/22 07/31/22 History (3 mL) subcutaneous pen (Levemir FlexTouch U-100 Insulin) pregabalin 100 mg capsule (Lyrica) 100 mg PO DAILY 07/17/22 07/31/22 History Laboratory Tests 07/31/22 10:10 POC Capillary Glucose 199 mg/dl H mg/dl (65-105) Patient hx anesthesia problems: none Family hx anesthesia problems: none Results Review: All pre-operative results and documents have been reviewed as part of the pre-operative evaluation. [facility] Past Medical History Medical History Anemia Anxiety BPH (benign prostatic hyperplasia) Chronic UTI (~2019) Claustrophobia Congestive heart failure Diastolic dysfunction CVA (cerebral vascular accident) (~2
[2022-07-31 10:53] VITALS: BP 107/64; PULSE 90; RESP 25; O2SAT 94
[2022-07-31 11:03] VITALS: BP 112/67; PULSE 92; RESP 25; O2SAT 96
[2022-07-31 11:13] VITALS: BP 134/80; PULSE 94; RESP 22; O2SAT 96
[2022-07-31 11:17] LABS: Glucose Point of Care 195 mg/dl (65-105)
== END 2022-07-31 11:22 | disposition home or self-care (01) ==
PROVIDERS: PCP Internal Medicine; Visit Provider Internal Medicine Gastroenterology
PROC: 0DJD8ZZ Inspection of Lower Intestinal Tract, Via Natural or Artificial Opening Endoscopic (ICD-10-PCS; CPT 45378; principal; 2022-07-31 11:00)
DX: Z12.11 Encounter for screening for malignant neoplasm of colon (principal); D12.2 Benign neoplasm of ascending colon; K64.8 Other hemorrhoids; Z79.82 Long term (current) use of aspirin; Z79.4 Long term (current) use of insulin; Z79.84 Long term (current) use of oral hypoglycemic drugs; D64.9 Anemia, unspecified; F41.9 Anxiety disorder, unspecified; N40.0 Benign prostatic hyperplasia without lower urinary tract symptoms; F32.A Depression, unspecified; E11.9 Type 2 diabetes mellitus without complications; I10 Essential (primary) hypertension; M54.12 Radiculopathy, cervical region; G47.33 Obstructive sleep apnea (adult) (pediatric); Z86.711 Personal history of pulmonary embolism; R00.0 Tachycardia, unspecified; Z90.49 Acquired absence of other specified parts of digestive tract; E66.9 Obesity, unspecified; Z68.36 Body mass index [BMI] 36.0-36.9, adult; F17.210 Nicotine dependence, cigarettes, uncomplicated
CPT/HCPCS: 45385; 82948; 88305; J2001; J2704; J7120

== ENCOUNTER 2022-08-16 09:38 | Inpatient (IN) | payer MEDICARE, SELFPAY ==
[2022-08-16] VITALS (10 sets, daily range): BP systolic 120–145; BP diastolic 76–95; PULSE 86–107; RESP 20–22; TEMP 36.2–36.5; O2SAT 92–98; BMI 33.1
--- NOTE | ~2022-08-16 | XR_ITS ---
XR chest 1V portable DATE: 08/23/2022 09:04 INDICATION: Pleuritic chest pain TECHNIQUE: Portable AP chest on 08/23/2022 at 0859 hours COMPARISON: 08/19/2022 portable AP chest 07/10/2022 2 view chest FINDINGS: There are bibasilar infiltrates or atelectasis, left greater than right and mild blunting o f the costophrenic angles suggesting small bilateral pleural effusions, left greater than right. Borderline heart size. Aortic arch calcification. Probable old fracture deformity of the proximal left humeral surgical neck. Osteopenia. There are displaced fractures of the posterolateral left fourth and fifth ribs, not evident on 022. IMPRESSION: Displaced posterolateral left fourth and fifth rib fractures. Bibasilar infiltrate or atelectasis and mild pleural effusions, greater on the left Reviewed, dictated and finalized at location A. D SEISMOLOGIST
--- NOTE | ~2022-08-16 | NM_ITS ---
EXAMINATION: NM pulmonary perfusion DATE: 08/18/2022 13:44 INDICATION: Pleuritic chest pain, hypoxia and tachycardia TECHNIQUE: 4.8 mCi Tc-99m MAA by intravenous route. Scintigraphic images of the chest were obtained. COMPARISON: Chest radiograph dated 08/16/2022 FINDINGS: Large wedge-shaped perfusion defect at the lingula, potentially both the superior and inferior segmen ts. Moderate-sized perfusion defect along the anterior segment of the right upper lobe and medial seg ment of the right middle lobe. Small perfusion defect along the lateral basilar segment of the left l ower lobe with corresponding small airspace opacity at the lateral left lung base. The remaining perf usion defects are without radiographic correlate which on the prior chest radiograph. IMPRESSION: 1. High probability for pulmonary embolism. Reviewed, dictated and finalized at location B.
--- NOTE | ~2022-08-16 | XR_ITS ---
XR chest 2V 08/16/2022 10:26 Indication: Cough Procedure: 2 view chest Comparison: Comparison to multiple prior studies sequentially, with oldest reviewed study dated 06/2020. Findings: There is left lower lobe airspace disease which may represent atelectasis or pneumonia. Sma ll left pleural effusion. Heart size normal. No pneumothorax. There is an old healed proximal left hu meral neck fracture. No acute osseous abnormality. Impression: 1: Left lower lobe airspace disease, compatible with pneumonia. 2: Small left pleural effusion. Reviewed, dictated and finalized at location A. Impression: 1: Left lower lobe airspace disease, compatible with pneumonia. 2: Small left pleural effusion.
--- NOTE | ~2022-08-16 | US_ITS ---
EXAMINATION: US renal BI DATE: 08/18/2022 14:02 INDICATION: Acute kidney injury. TECHNIQUE: Multiple ultrasound grayscale images of the kidneys were obtained. COMPARISON: CT abdomen and pelvis 04/10/2021 FINDINGS: The right kidney measures 12.8 x 5.3 x 7.5 cm. The left kidney measures 12.9 x 5.9 x 7.5 cm. The kidn eys demonstrate normal parenchymal echogenicity. There is no hydronephrosis. The bladder is normal. IMPRESSION: 1. Normal kidneys. No hydronephrosis. Reviewed, dictated and finalized at location A.
--- NOTE | ~2022-08-16 | XR_ITS ---
EXAMINATION: XR chest 1V portable DATE: 08/19/2022 10:43 INDICATION: Chest pain. TECHNIQUE: A single frontal view of the chest was obtained. COMPARISON: Chest 2 views 08/16/2022, CT abdomen and pelvis 04/10/21 FINDINGS: There is mild atelectasis in the lower lung zones. No pleural effusion or pneumothorax. The heart size is normal. IMPRESSION: 1. Mild atelectasis in the lower lung zones. Reviewed, dictated and finalized at location A.
--- NOTE | 2022-08-16 09:42 | ECG_ITS ---
Measurements Intervals [place] Rate: 105 P: 155 IA: 152 QRS: 185 QRSD: 94 T: 112 QT: 335 QTc: 444 Interpretive Statements SINUS TACHYCARDIA WITH FREQUENT VENTRICULAR PREMATURE COMPLEXES ARM LEADS REVERSED [INVERTED P AND QRS IN I] ABNORMAL RHYTHM ECG COMPARED TO ECG 07/11/2022 00:27:50 LEAD REVERSAL IS PRESENT Electronically Signed On 08-16-2022 12:19:23 CDT by Hola Durán M.D.
[2022-08-16] MEDS: IPRATROPIUM BR 0.02% INH SOLN 0.5 MG/2.5 ML VIAL INHALATION (09:55)
[2022-08-16] MEDS: ALBUTEROL SULFATE NEB 2.5 MG/3 ML INH 5 MG INHALATION (09:55)
[2022-08-16 10:46] LABS: SARS-CoV-2 RNA PCR Negative
[2022-08-16 11:43] LABS: Basophils Absolute Auto 0.1 K/mm3 (0.0-0.1); Basophils Percent Auto 0.6 % (0.2-1.2); Eosinophils Absolute Auto 0.6 K/mm3 (0-0.3); Eosinophils Percent Auto 2.9 % (0-4.4); Hematocrit 47.6 % (42.0-52.0); Hemoglobin 15.9 g/dL (14.0-18.0); Immature Granulocyte Absolute 0.19 K/mm3 (0.00-0.031); Immature Granulocyte Percent A 0.9 % (0-0.5); Lymphocytes Absolute Auto 2.87 K/mm3 (0.9-3.2); Lymphocytes Percent Auto 14.2 % (18.3-44.2); Mean Corpuscular HGB Conc 33.4 g/dl (32-36); Mean Corpuscular Hemoglobin 31.2 pg (26-34); Mean Corpuscular Volume 93.3 fl (80-100); Mean Platelet Volume 11.1 fl (7.4-10.4); Monocytes Absolute Auto 1.5 K/mm3 (0.1-0.6); Monocytes Percent Auto 7.2 % (2.6-8.5); Neutrophils Percent Auto 74.2 % (45.5-73.1); Nucleated Red Blood Cells Perc 0.1 % (0.0-0.2); Platelet Count Result 528 k/mm3 (150-375); Red Cell Distribution Width 14.8 % (11.5-14.5); White Blood Count 20.2 K/mm3 (4.5-10.0)
[2022-08-16 11:52] LABS: Alanine Aminotransferase 19 U/L (6-50); Albumin Level 4.2 g/dL (3.5-5.1); Alkaline Phosphatase 68 U/L (38-126); Anion Gap 10 mmol/L (8-16); Aspartate Amino Transferase 24 U/L (17-59); Bilirubin,Total 0.7 mg/dL (0.2-1.3); Blood Urea Nitrogen 32 mg/dL (9-20); Calcium 10.5 mg/dL (8.4-10.2); Carbon Dioxide 23 mmol/L (22-30); Chloride 104 mmol/L (98-107); Estimated Glomerular Filt Rate 47; Glucose 190 mg/dL (65-110); Potassium 4.6 mmol/L (3.4-5.0); Sodium 137 mmol/L (137-145)
[2022-08-16 11:58] LABS: Prothrombin Time 12.9 Seconds (11.1-14.7)
[2022-08-16 11:59] LABS: Partial Thromboplastin Time 23.9 SECONDS (22.3-36.8)
[2022-08-16 12:03] LABS: Troponin I 0.013 ng/mL (0.000-0.034)
[2022-08-16] MEDS: MORPHINE SULFATE (*CRX) 2 MG/ML INJ IV PUSH (12:03)
[2022-08-16] MEDS: ERYTHROMYCIN OPHTH OINTMENT 1 GM TUBE 1 APPLIC EACH EYE ×3 (12:48→21:39)
--- NOTE | 2022-08-16 13:15 | ED.CHESTPAIN ---
HPI - Chest Pain General Chief Complaint: Chest Pain Stated Complaint: CP History of Present Illness HPI narrative: Patient is a 62-year-old male who presents ER with left-sided chest discomfort. Left anterior chest worse with deep breath. Feels like when he had pneumonia in the past. He endorses cough as well as subjective fevers and chills. He does not have a spleen. He has history of myelofibrosis. No lower extremity cramping or swelling. No hemoptysis. Symptoms have been ongoing for 2 days. No alleviating factors. Patient also reports she has been feeling weak over the last week and is experienced multiple falls. He has developed irritation to his left eye and has some thick discharge. Patient also reports some sinus congestion. Related Data Home Medications Medication Instructions Recorded Confirmed fenofibrate 160 mg tablet 160 mg PO HS 01/15/20 08/16/22 metformin 1,000 mg tablet 1,000 mg PO BID 01/15/20 08/16/22 albuterol sulfate 90 mcg/actuation 2 puff inhalation Q4H PRN 11/08/20 08/16/22 aerosol inhaler Shortness Of Breath Or Wheezing allopurinol 100 mg tablet 100 mg PO DAILY 11/08/20 08/16/22 aspirin 81 mg tablet,delayed 81 mg PO DAILY 11/08/20 08/16/22 release (Adult Low Dose Aspirin) budesonide-formoterol HFA 160 2 puff inhalation BID 11/08/20 08/16/22 mcg-4.5 mcg/actuation aerosol inhaler (Symbicort) cholecalciferol (vitamin D3) 1,250 1,250 mcg PO WEEKLY 11/08/20 08/16/22 mcg (50,000 unit) capsule finasteride 5 mg tablet 5 mg PO DAILY 11/08/20 08/16/22 montelukast 10 mg tablet 10 mg PO HS 11/08/20 08/16/22 cyclobenzaprine 10 mg tablet 10 mg PO TID PRN Muscle Spasm 04/11/21 08/16/22 dulaglutide 0.75 mg/0.5 mL 0.75 mg subcut WEEKLY 04/11/21 08/16/22 subcutaneous pen injector (Trulicity) metoprolol succinate 25 mg 12.5 mg PO BID 04/11/21 08/16/22 tablet,extended release 24 hr pravastatin 40 mg tablet 40 mg PO HS 04/11/21 08/16/22 venlafaxine 37.5 mg tablet 37.5 mg PO BID 04/11/21 08/16/22 zolpidem 10 mg tablet 10 mg PO HS 04/11/21 08/16/22 insulin aspart U-100 100 unit/mL 12 unit subcut AC 07/17/22 08/16/22 (3 mL) subcutaneous pen (Novolog Flexpen U-100 Insulin aspart) insulin detemir U-100 100 unit/mL 40 unit subcut DAILY 07/17/22 08/16/22 (3 mL) subcutaneous pen (Levemir FlexTouch U-100 Insulin) pregabalin 100 mg capsule (Lyrica) 100 mg PO BID 07/17/22 08/16/22 midodrine 5 mg tablet 2.5 mg PO BID 08/16/22 08/16/22 olopatadine 0.1 % eye drops 1 drp EACH EYE BID PRN Allergy 08/16/22 08/16/22 Symptoms tamsulosin 0.4 mg capsule 0.4 mg PO BID 08/16/22 08/16/22 torsemide 20 mg tablet 20 mg PO BID PRN Edema 08/16/22 08/16/22 Allergies Allergy/AdvReac Type Severity Reaction Status Date / Time naproxen Allergy Intermediate SWELLING Verified 07/31/22 09:56 iohexol Allergy Unknown Verified 07/31/22 09:56 [From contrast - CT, X-RAY] cefepime AdvReac Blister Verified 07/31/22 09:56 Review of Systems Review of Systems: All systems reviewed & are unremarkable except as noted in HPI and below Constitutional: Constitutional: Reports chills, Reports fatigue and Reports fever(s) Eyes: Comments: Left eye irritation with discharge Cardiovascular: Cardiovascular: Reports chest pain, Denies rapid heart rate and Denies radiating jaw, neck or arm pain Respiratory: Respiratory: Reports cough, Reports dyspnea and Denies wheezing Gastrointestinal: Gastrointestinal: Denies abdominal pain, Denies nausea and Denies vomiting Genitourinary: Genitourinary: Denies dysuria and Denies urinary frequency Musculoskeletal: Musculoskeletal: Denies myalgias Integumentary/Breasts: Skin/Breast: Denies erythema and Denies rash PMFSH Past Medical History Medical History (Updated 08/16/22 @ 18:41 by Shawn Canales MD) Anemia Anxiety Benign prostatic hyperplasia Cerebrovascular accident (2015) Chronic kidney disease Claustrophobia Depression Diastolic dysfunction Enterobacter sepsis
--- NOTE | 2022-08-16 15:30 | PM.IMHP ---
H&P: HPI History of Present Illness Date/Time: 08/16/22 15:30 Chief Complaint: Chest pain, shortness of breath, cough. Narrative: This is a pleasant 62-year-old male with multiple medical problems including history of stroke, diabetes, hypertension, pulmonary embolism, myelofibrosis status post splenectomy, chronic kidney disease, and other comorbidities who presented to the emergency department via EMS from home for evaluation of chest pain, shortness a breath, and cough since Wednesday. He describes a sharp and shooting, non-radiating pain in the left anterior chest over the lower ribs which has been constant since the outset and worse with deep inspiration cough. He has also been feeling mildly short of breath and he has a non-productive cough. He also has sinus congestion though he goes on to state that he has issues with chronic rhinosinusitis. At home he has been taking Mucinex and aspirin for the pain but unfortunately his symptoms continue and he came to the ER as he assumed that he probably had pneumonia. Chest x-ray indeed show evidence of left lower lobe pneumonia and he is being admitted in this setting. He denies recent travel and sick contacts. No dysphagia or concerns for aspiration. He has not had fever, chills, or sweats. His appetite has been good with no nausea, vomiting, or diarrhea. Review of Systems Review of Systems: Twelve systems were reviewed. He has chronic left-sided weakness from a prior stroke. His left hand is contracted and he cannot really use it much. He has poor balance which he blames on neuropathy from his diabetes in addition to the fact that he has had amputations of the right forefoot. He does not use a cane or walker but he does have to hold on to furniture at home to stabilize himself. He has had falls, several in the last couple of weeks which he reports is not unusual. He denies syncope and near-syncope. He has not sustained any injuries in the fall however he did hit his head a week ago and has a small abrasion above his left eye. His left eye has also been red, pruritic, and irritated and he thinks he has conjunctivitis. He believes his diabetes is well controlled and since starting on Trulicity he has noticed increasing episodes of hypoglycemia, in the 40s, 50s, and 60s on some mornings. Except as documented, all other systems were reviewed and are negative. [facility] Past Medical History Medical History (Updated 08/16/22 @ 17:42 by Haven Saldaña PA-C) Anemia Anxiety Benign prostatic hyperplasia Cerebrovascular accident (2014) Chronic kidney disease Claustrophobia Depression Diastolic dysfunction Enterobacter sepsis Secondary to UTI. 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 Smoking status: Former smoker Tobacco type: cigars Smoking end date: 10/18/94 Alcohol intake: never Alcohol use details: 1/month Substance use: current Substance use type: marijuana Has the Lack of Transportation Kept You From Medical Appointments or From Getting Medications?: Yes Within the Past 12 Mo
[2022-08-16 16:37] LABS: Glucose Point of Care 158 mg/dl (65-105)
[2022-08-16 18:49] LABS: Hemoglobin A1C 7.9 % (<5.7)
[2022-08-16] MEDS: HYDROcodone/acetaminophen (*CRX) 5-325 MG TABLET 1 TAB PO (20:59)
[2022-08-17] VITALS (10 sets, daily range): BP systolic 110–130; BP diastolic 63–74; PULSE 93–126; RESP 18–20; TEMP 36–36.3; O2SAT 88–96
[2022-08-17 00:50] LABS: Glucose Point of Care 171 mg/dl (65-105)
[2022-08-17] MEDS: ERYTHROMYCIN OPHTH OINTMENT 1 GM TUBE 1 APPLIC EACH EYE ×5 (05:40→22:02)
[2022-08-17] MEDS: HYDROcodone/acetaminophen (*CRX) 5-325 MG TABLET 1 TAB PO ×4 (05:41→22:05)
[2022-08-17] MEDS: CYCLOBENZAPRINE HCL 10 MG TABLET PO ×3 (05:42→16:32)
[2022-08-17 07:35] LABS: Hematocrit 44.6 % (42.0-52.0); Hemoglobin 15.1 g/dL (14.0-18.0); Mean Corpuscular HGB Conc 33.9 g/dl (32-36); Mean Corpuscular Hemoglobin 30.4 pg (26-34); Mean Corpuscular Volume 89.9 fl (80-100); Mean Platelet Volume 11.4 fl (7.4-10.4); Platelet Count Result 553 k/mm3 (150-375); Red Blood Count 4.96 M/mm3 (4.6-6.20); Red Cell Distribution Width 14.4 % (11.5-14.5); White Blood Count 17.9 K/mm3 (4.5-10.0)
[2022-08-17] MEDS: FLUTICASONE/SALMETEROL 115-21 MCG INHALER 1 PUFF 2 PUFF INHALATION ×2 (07:54→21:26)
[2022-08-17 07:58] LABS: Alanine Aminotransferase 16 U/L (6-50); Alkaline Phosphatase 55 U/L (38-126); Anion Gap 12 mmol/L (8-16); Aspartate Amino Transferase 23 U/L (17-59); Bilirubin,Total 0.7 mg/dL (0.2-1.3); Blood Urea Nitrogen 23 mg/dL (9-20); Calcium 9.8 mg/dL (8.4-10.2); Carbon Dioxide 24 mmol/L (22-30); Chloride 97 mmol/L (98-107); Estimated CRCL calculation 59 ml/min; Estimated Glomerular Filt Rate 56; Glucose 151 mg/dL (65-110); Magnesium 1.2 mg/dL (1.6-2.3); Sodium 133 mmol/L (137-145)
[2022-08-17 08:00] LABS: Glucose Point of Care 154 mg/dl (65-105)
[2022-08-17] MEDS: INSULIN ASPART (*BKC) 100 UNITS/ML 12 UNITS SUB-Q ×3 (09:36→16:31)
[2022-08-17] MEDS: INSULIN GLARGINE (*BKC) 100 UNITS/ML 32 UNITS SUB-Q (09:36)
[2022-08-17] MEDS: ENOXAPARIN 40 MG/0.4 ML SYRINGE SUB-Q (09:37)
[2022-08-17] MEDS: MAGNESIUM SULFATE 3GM/D5W100ML 3 GM/100 ML BAG IVPB (09:37)
[2022-08-17] MEDS: TAMSULOSIN HCL 0.4 MG CAPSULE PO ×2 (09:38→16:32)
[2022-08-17] MEDS: TORSEMIDE 20 MG TABLET PO (09:38)
[2022-08-17] MEDS: METOPROLOL SUCCINATE EXT REL 12.5 MG TABCR PO ×2 (09:38→22:04)
[2022-08-17] MEDS: FINASTERIDE 5 MG TABLET PO (09:51)
[2022-08-17] MEDS: allopurinoL 100 MG TABLET PO (09:51)
[2022-08-17] MEDS: MIDODRINE HCL 2.5 MG TABLET PO ×2 (09:51→16:32)
[2022-08-17] MEDS: VENLAFAXINE HCL 37.5 MG TABLET PO ×2 (09:51→16:32)
[2022-08-17] MEDS: MAGNESIUM OXIDE 400 MG TABLET PO (09:51)
[2022-08-17] MEDS: ASPIRIN 81 MG ENTERIC TABLET PO (09:51)
[2022-08-17] MEDS: PREGABALIN (*CRX) 50 MG CAPSULE 100 MG PO ×2 (09:52→16:32)
[2022-08-17 11:29] LABS: Glucose Point of Care 291 mg/dl (65-105)
[2022-08-17] MEDS: INSULIN ASPART (*BKC) 100 UNITS/ML SUB-Q (12:23)
--- NOTE | 2022-08-17 15:08 | PM.IMPN ---
Progress Note: A&P Assessment and Plan (1) Left lower lobe pneumonia: Code(s): J18.9 - Pneumonia, unspecified organism Status: Acute Assessment and Plan: The patient presented to the emergency department for evaluation of 3 days of nonradiating, left anterior pleuritic pain as well as a nonproductive cough. Chest x-ray shows left lower lobe pneumonia. Continue IV Levaquin. Sputum culture ordered, awaiting collection. Legionella, mycoplasma, and pneumococcal urinary antigens pending. Supportive care to include bronchodilators, expectorants, incentive spirometry Covid negative. Will check influenza Currently requiring 1 L supplemental O2. Patient afebrile. Noted to have chronic leukocytosis that appears unchanged. (2) Chronic kidney disease: Code(s): N18.9 - Chronic kidney disease, unspecified Status: Acute Assessment and Plan: Creatinine is stable on review of previous labs. (3) Insulin dependent diabetes mellitus: Status: Chronic Assessment and Plan: A1c is 7.9. Blood sugars slightly elevated today Continue Accu-Cheks, low-dose sliding scale insulin, and hypoglycemic protocol Continue home Lantus with 20% dose reduction, 32 units qHS NovoLog 12 units scheduled with meals Home metformin on hold (4) Frequent falls: Code(s): R29.6 - Repeated falls Status: Acute Assessment and Plan: Secondary to a combination of neuropathy from his diabetes and possible orthostatic hypotension (he has a prescription for midodrine). He is also status post right forefoot amputation which could be contributing to his balance problems. Fall precautions. Monitor orthostatics Appreciate PT/OT eval (5) Hypomagnesemia: Code(s): E83.42 - Hypomagnesemia Status: Acute Assessment and Plan: Magnesium 1.2 today Administer 3 g IV magnesium sulfate Monitor magnesium levels Plan Patient with sinus tachycardia, hypoxia, and pleuritic CP. Likely explained by pneumonia, however given his history, there is concern for acute PE. Wells score is 3, indicating moderate risk. Will proceed with CTA to rule out PE. GFR is 56, okay to proceed with contrast. Will monitor renal function following scan. Subjective Date/time seen: 08/17/22 15:08 Interval history: Date of service: 08/17/2022 Jeremías Gaines is a 62-year-old male with a history of type 2 diabetes mellitus, CVA, PE, HECTOR, myelofibrosis s/p splenectomy, diastolic dysfunction, BPH, anemia, CKD who is seen in follow-up for pneumonia. The patient reports feeling very poorly today. His main complaint is upper airway congestion and shortness of breath. He endorses pleuritic chest pain that he describes as a dull stabbing which is worsened with inspiration. He has a nonproductive hacking cough. He denies hemoptysis. He endorses dyspnea on exertion. He feels significantly weak. He reports that he has not been getting around much at home and mostly stays in his recliner where he has his meals brought to him. He complains of pain in his right buttocks and leg from sitting up in the chair. He states he is not used to sitting down and typically is reclined. During my encounter, he was assisted from the chair back into bed by 2 aides. He had significant difficulty with this and once he was sat in bed, he complained of feeling dizzy. He states his left eye has been red and irritated and bothersome. He denies visual changes. His appetite is fair. He reports a bowel movement 2 days ago. Denies urinary symptoms. Denies swelling of his extremities. Review of Systems Review of Systems: All systems reviewed & are unremarkable except as noted in HPI and below Exam Narrative: General: Well-nourished, chronically ill-appearing 62-year-old male, sitting up in bed, comfortable, NARD Neuro: awake, alert and oriented x4, speech clear, no focal neuro deficits noted HEENMT: normocephalic, at
[2022-08-17 16:50] LABS: Glucose Point of Care 172 mg/dl (65-105)
[2022-08-17 21:08] LABS: Influenza A QL RT-PCR Negative (Negative); Influenza B QL RT-PCR Negative (Negative)
[2022-08-17] MEDS: FENOFIBRATE 160 MG TABLET PO (22:03)
[2022-08-17] MEDS: guaiFENesin 12 HR 600 MG TABCR PO (22:03)
[2022-08-17] MEDS: MONTELUKAST SODIUM 10 MG TABLET PO (22:04)
[2022-08-17] MEDS: PRAVASTATIN SODIUM 20 MG TABLET 40 MG PO (22:05)
[2022-08-17] MEDS: ZOLPIDEM TARTRATE (*CRX) 5 MG TABLET 10 MG PO (22:06)
[2022-08-18] VITALS (7 sets, daily range): BP systolic 117–178; BP diastolic 74–158; PULSE 57–106; RESP 14–16; TEMP 35.9–36.3; O2SAT 94–96
--- NOTE | 2022-08-18 | ECHO_ITS ---
Patient Info Name: Jeremías Gaines Age: 62 years : 1960 Gender: Male Ht: 67 in Wt: 216 lbs BSA: 2.19 m2 HR: 106 bpm BP: 117 / 92 mmHg Heart Rhythm: Sinus Rhythm Technical Quality: Fair Exam Date: 08/18/2022 3:34 PM Exam Location: [facility] Patient Status: Inpatient Admit Date: 08/18/2022 Staff Ordering Physician: Debby Devine PA-C Supervisor [employer]: Irlanda Sandoval RDCS Attending Provider: Debby Devine PA-C Referring Physician: Sybil ODONNELL; Exam Type: CA echo dop color flow w con Study Info Indications - PE Complete two-dimensional, color flow and Doppler transthoracic echocardiogram is performed with contrast to opacify the left ventricle and to improve the deliniation of the left ventricle endocardial borders. Contrast/Agitated Saline Contrast/Ag. Saline: Definity Amount: 3.00 ml Administered By: Irlanda Sandoval RDCS Existing IV Access: Yes IV Access Condition: patent with no signs of infiltration Summary 1. Normal left ventricular size with mild concentric hypertrophy. Good systolic function of all segments with an ejection fraction of 74%. Grade 2 diastolic dysfunction is present. 2. Left atrial chamber dimension is mildly enlarged. 3. Right ventricle not well seen but grossly normal. 4. Calcified aortic valve with no significant stenosis. 5. Unable to calculate the right ventricular systolic pressure on this study due to lack 0 tricuspid regurgitation. 6. Rhythm appears to be sinus with PVCs. Left Ventricle Left ventricular chamber dimension is normal. Left ventricular systolic function is normal, estimated at Empty. There is mildly increased left ventricular wall thickness. Left ventricular septal wall motion is normal. The left ventricular diastolic function is grade II diastolic dysfunction. Right Ventricle Right ventricular chamber dimension is normal. Right ventricular systolic function is normal. Left Atria Left atrial chamber dimension is mildly enlarged. Right ventricle not well seen but grossly normal. Calcified aortic valve with no significant stenosis. Unable to calculate the right ventricular systolic pressure on this study due to lack 0 tricuspid regurgitation. Rhythm appears to be sinus with PVCs. Right Atria Right atrial chamber dimension is normal. Aortic Valve The aortic valve is trileaflet. There is no aortic valve sclerosis. There is no aortic valve stenosis. There is no aortic valve regurgitation. There is mild aortic valve calcification. Pulmonic Valve The pulmonic valve is normal. There is no pulmonic valve stenosis. There is no pulmonic regurgitation. Mitral Valve The mitral valve has normal leaflets. There is no mitral valve stenosis. There is no mitral valve regurgitation. The mitral valve annulus is mildly calcified. Tricuspid Valve The tricuspid valve leaflets are normal. There is no significant tricuspid valve stenosis. There is trace tricuspid valve regurgitation. No pulmonary hypertension, estimated pulmonary arterial systolic pressure is Empty. Pericardium/Pleural The pericardium appears normal. There is no pericardial effusion. Inferior Vena Cava Normal inferior vena cava with >50% collapse upon inspiration consistent with Empty right atrial pressure, Empty. Aorta The aortic root size at the sinus of Valsalva is normal. The prox ascending aorta size is normal. Left Ventricul
[2022-08-18 03:50] LABS: Glucose Point of Care 112 mg/dl (65-105)
[2022-08-18] MEDS: ERYTHROMYCIN OPHTH OINTMENT 1 GM TUBE 1 APPLIC EACH EYE ×5 (05:27→21:13)
[2022-08-18] MEDS: HYDROcodone/acetaminophen (*CRX) 5-325 MG TABLET 1 TAB PO ×2 (05:28→19:36)
[2022-08-18] MEDS: CYCLOBENZAPRINE HCL 10 MG TABLET PO (05:28)
[2022-08-18 06:59] LABS: Basophils Absolute Auto 0.1 K/mm3 (0.0-0.1); Basophils Percent Auto 0.6 % (0.2-1.2); Eosinophils Absolute Auto 0.8 K/mm3 (0-0.3); Eosinophils Percent Auto 4.9 % (0-4.4); Hemoglobin 14.2 g/dL (14.0-18.0); Immature Granulocyte Absolute 0.19 K/mm3 (0.00-0.031); Immature Granulocyte Percent A 1.1 % (0-0.5); Lymphocytes Absolute Auto 2.42 K/mm3 (0.9-3.2); Lymphocytes Percent Auto 14.2 % (18.3-44.2); Mean Corpuscular Hemoglobin 30.5 pg (26-34); Mean Corpuscular Volume 92.5 fl (80-100); Monocytes Absolute Auto 1.6 K/mm3 (0.1-0.6); Monocytes Percent Auto 9.2 % (2.6-8.5); Neutrophils Absolute Auto 11.9 K/mm3 (1.3-6.7); Platelet Count Result 532 k/mm3 (150-375); Red Blood Count 4.65 M/mm3 (4.6-6.20); Red Cell Distribution Width 14.5 % (11.5-14.5)
[2022-08-18 07:05] LABS: Alanine Aminotransferase 16 U/L (6-50); Albumin Level 3.9 g/dL (3.5-5.1); Alkaline Phosphatase 52 U/L (38-126); Anion Gap 9 mmol/L (8-16); Aspartate Amino Transferase 23 U/L (17-59); Bilirubin,Total 0.6 mg/dL (0.2-1.3); Blood Urea Nitrogen 37 mg/dL (9-20); Calcium 9.5 mg/dL (8.4-10.2); Carbon Dioxide 24 mmol/L (22-30); Chloride 95 mmol/L (98-107); Estimated CRCL calculation 39 ml/min; Estimated Glomerular Filt Rate 34; Glucose 167 mg/dL (65-110); Potassium 4.3 mmol/L (3.4-5.0); Sodium 128 mmol/L (137-145)
[2022-08-18] MEDS: FLUTICASONE/SALMETEROL 115-21 MCG INHALER 1 PUFF 2 PUFF INHALATION ×2 (08:15→20:47)
[2022-08-18] MEDS: ALBUTEROL SULFATE (*SP) AEROSOL 1 PUFF 2 PUFF INHALATION (08:26)
[2022-08-18 09:24] LABS: Glucose Point of Care 152 mg/dl (65-105)
[2022-08-18] MEDS: INSULIN ASPART (*BKC) 100 UNITS/ML 12 UNITS SUB-Q ×3 (09:31→17:03)
[2022-08-18] MEDS: INSULIN GLARGINE (*BKC) 100 UNITS/ML 32 UNITS SUB-Q (09:32)
[2022-08-18] MEDS: ENOXAPARIN 40 MG/0.4 ML SYRINGE SUB-Q (09:33)
[2022-08-18] MEDS: allopurinoL 100 MG TABLET PO (09:34)
[2022-08-18] MEDS: VENLAFAXINE HCL 37.5 MG TABLET PO ×2 (09:34→17:04)
[2022-08-18] MEDS: guaiFENesin 12 HR 600 MG TABCR PO ×2 (09:34→21:15)
[2022-08-18] MEDS: MAGNESIUM OXIDE 400 MG TABLET PO (09:34)
[2022-08-18] MEDS: ASPIRIN 81 MG ENTERIC TABLET PO (09:35)
[2022-08-18] MEDS: METOPROLOL SUCCINATE EXT REL 12.5 MG TABCR PO ×2 (09:35→21:13)
[2022-08-18] MEDS: PREGABALIN (*CRX) 50 MG CAPSULE 100 MG PO ×2 (09:43→17:08)
[2022-08-18] MEDS: SODIUM CHLORIDE 0.9% IV 1,000 ML 100 ML IV CONT (09:44)
[2022-08-18 11:35] LABS: Glucose Point of Care 200 mg/dl (65-105)
--- NOTE | 2022-08-18 14:32 | P.PNIM_ITS ---
Progress Note: A&P Assessment and Plan (1) Pulmonary embolism: Code(s): I26.99 - Other pulmonary embolism without acute cor pulmonale Status: Acute Assessment and Plan: Patient with history of pulmonary embolism presented sinus tachycardia, hypoxia, and pleuritic CP. * CTA deferred due to questionable contrast allergy therefore V/Q scan ordered for evaluation * V/Q scan revealed high probability for pulmonary embolism * Will begin Eliquis. 10 mg BID x 7 days then 5 mg BID * Administer 1 dose of Eliquis now and then proceed with BID dosing * Consult to care coordination for neely check of Eliquis * Check echocardiogram and BNP (2) Left lower lobe pneumonia: Code(s): J18.9 - Pneumonia, unspecified organism Status: Acute Assessment and Plan: The patient presented to the emergency department for evaluation of 3 days of nonradiating, left anterior pleuritic pain as well as a nonproductive cough. Chest x-ray shows left lower lobe pneumonia. * Continue IV Levaquin. * Sputum culture ordered, awaiting collection. * Legionella, mycoplasma, and pneumococcal urinary antigens pending. * Supportive care to include bronchodilators, expectorants, incentive spirometry * Covid and influenza negative * Currently requiring 1 L supplemental O2. * Patient afebrile. Noted to have chronic leukocytosis that appears unchanged. (3) Acute on chronic kidney failure: Code(s): N17.9 - Acute kidney failure, unspecified; N18.9 - Chronic kidney disease, unspecified Status: Acute Assessment and Plan: Baseline creatinine appears to be 1.5-1.7. Creatinine with slight increase to 2.0 today * Etiology for this is unclear. * No evidence of urinary retention. Patient with adequate urine output. Bladder scan pending * Renal ultrasound with normal kidneys and no evidence of hydronephrosis * Begin IV fluids normal saline 100 ml/hr * Monitor renal function closely. Avoid nephrotoxic agents (4) Insulin dependent diabetes mellitus: Status: Chronic Assessment and Plan: A1c is 7.9. * Continue Accu-Cheks, low-dose sliding scale insulin, and hypoglycemic protocol * Continue home Lantus with 20% dose reduction, 32 units qHS * NovoLog 12 units scheduled with meals * Home metformin on hold (5) Frequent falls: Code(s): R29.6 - Repeated falls Status: Acute Assessment and Plan: Secondary to a combination of neuropathy from his diabetes and possible orthostatic hypotension (he has a prescription for midodrine). He is also status post right forefoot amputation whichlikely contributes to his balance problems. * Fall precautions. * Monitor orthostatics. Pt today reports today he is no longer taking midodrine * Appreciate PT/OT eval (6) Hypomagnesemia: Code(s): E83.42 - Hypomagnesemia Status: Acute Assessment and Plan: Improved. Magnesium 2.0 today * Resolved with supplementation * Monitor magnesium levels (7) Hyponatremia: Code(s): E87.1 - Hypo-osmolality and hyponatremia Status: Acute Assessment and Plan: Sodium with slight decline to 128 today * IV fluids started as above * Check urine sodium * Repeat sodium this afternoon to ensure remaining stable Subjective Date/time seen: 08/18/22 14:32 Interval history: Date of service: 08/18/2022 Jeremías Gaines is a 62-year-old male with a history of type 2 diabetes gaili comforts, CVA, PE, HECTOR, myelofibrosis s/p splenectomy, diastolic dysfunction, BPH, anemia, CKD who is see
--- NOTE | 2022-08-18 14:32 | PM.IMPN ---
Progress Note: A&P Assessment and Plan (1) Pulmonary embolism: Code(s): I26.99 - Other pulmonary embolism without acute cor pulmonale Status: Acute Assessment and Plan: Patient with history of pulmonary embolism presented sinus tachycardia, hypoxia, and pleuritic CP. CTA deferred due to questionable contrast allergy therefore V/Q scan ordered for evaluation V/Q scan revealed high probability for pulmonary embolism Will begin Eliquis. 10 mg BID x 7 days then 5 mg BID Administer 1 dose of Eliquis now and then proceed with BID dosing Consult to care coordination for neely check of Eliquis Check echocardiogram and BNP (2) Left lower lobe pneumonia: Code(s): J18.9 - Pneumonia, unspecified organism Status: Acute Assessment and Plan: The patient presented to the emergency department for evaluation of 3 days of nonradiating, left anterior pleuritic pain as well as a nonproductive cough. Chest x-ray shows left lower lobe pneumonia. Continue IV Levaquin. Sputum culture ordered, awaiting collection. Legionella, mycoplasma, and pneumococcal urinary antigens pending. Supportive care to include bronchodilators, expectorants, incentive spirometry Covid and influenza negative Currently requiring 1 L supplemental O2. Patient afebrile. Noted to have chronic leukocytosis that appears unchanged. (3) Acute on chronic kidney failure: Code(s): N17.9 - Acute kidney failure, unspecified; N18.9 - Chronic kidney disease, unspecified Status: Acute Assessment and Plan: Baseline creatinine appears to be 1.5-1.7. Creatinine with slight increase to 2.0 today Etiology for this is unclear. No evidence of urinary retention. Patient with adequate urine output. Bladder scan pending Renal ultrasound with normal kidneys and no evidence of hydronephrosis Begin IV fluids normal saline 100 ml/hr Monitor renal function closely. Avoid nephrotoxic agents (4) Insulin dependent diabetes mellitus: Status: Chronic Assessment and Plan: A1c is 7.9. Continue Accu-Cheks, low-dose sliding scale insulin, and hypoglycemic protocol Continue home Lantus with 20% dose reduction, 32 units qHS NovoLog 12 units scheduled with meals Home metformin on hold (5) Frequent falls: Code(s): R29.6 - Repeated falls Status: Acute Assessment and Plan: Secondary to a combination of neuropathy from his diabetes and possible orthostatic hypotension (he has a prescription for midodrine). He is also status post right forefoot amputation whichlikely contributes to his balance problems. Fall precautions. Monitor orthostatics. Pt today reports today he is no longer taking midodrine Appreciate PT/OT thomasal (6) Hypomagnesemia: Code(s): E83.42 - Hypomagnesemia Status: Acute Assessment and Plan: Improved. Magnesium 2.0 today Resolved with supplementation Monitor magnesium levels (7) Hyponatremia: Code(s): E87.1 - Hypo-osmolality and hyponatremia Status: Acute Assessment and Plan: Sodium with slight decline to 128 today IV fluids started as above Check urine sodium Repeat sodium this afternoon to ensure remaining stable Subjective Date/time seen: 08/18/22 14:32 Interval history: Date of service: 08/18/2022 Jeremías Gaines is a 62-year-old male with a history of type 2 diabetes mellitus, CVA, PE, HECTOR, myelofibrosis s/p splenectomy, diastolic dysfunction, BPH, anemia, CKD who is seen in follow-up for pneumonia. The patient continues to feel poorly today. He notes no change in his shortness of breath. He continues to endorse cough. He has left-sided pleuritic chest pain which is worsened with inspiration. He feels very weak. He is having significant difficulty with ambulation and feels dizzy with activity. He denies fevers or chills. No nausea or vomiting. His appetite is fair. Denies any urinary symptoms. Notes
[2022-08-18 15:20] LABS: Sodium 129 mmol/L (137-145)
[2022-08-18 15:31] LABS: NT Pro B Type Natriuretic Pept 94 pg/mL (5-100)
[2022-08-18 15:35] LABS: Creatinine Urine 88.6 mg/dL
[2022-08-18] MEDS: PERFLUTREN LIPID MICROSPHERES 1.5 ML VIAL DILUTED TO 10 ML TOTAL VOLUME IV PUSH (15:54)
--- NOTE | 2022-08-18 15:54 | IVDEFINITY ---
Prior to administration of IV Definity the patient was educated on the risks and benefits of the imaging enhancing agent including potential adverse side effects. The patient verbalized understanding. Allergies were verified. No exclusion criteria were identified and at least one of the following inclusion criteria were met: 1) physician request, 2) patient technically difficult to image (per the [place] [employer] guidelines of two or more segments not discernable within the apical view), or 3) questionable left ventricular function. ?
[2022-08-18] MEDS: APIXABAN 5 MG TABLET 10 MG PO (16:14)
[2022-08-18 16:22] LABS: Sodium Urine Random < 5 meq/L
[2022-08-18 17:01] LABS: Glucose Point of Care 129 mg/dl (65-105)
[2022-08-18] MEDS: TAMSULOSIN HCL 0.4 MG CAPSULE PO (17:04)
[2022-08-18] MEDS: TORSEMIDE 20 MG TABLET PO (17:04)
[2022-08-18] MEDS: FENOFIBRATE 160 MG TABLET PO (21:12)
[2022-08-18] MEDS: PRAVASTATIN SODIUM 20 MG TABLET 40 MG PO (21:12)
[2022-08-18] MEDS: ZOLPIDEM TARTRATE (*CRX) 5 MG TABLET 10 MG PO (21:12)
[2022-08-18] MEDS: MONTELUKAST SODIUM 10 MG TABLET PO (21:13)
[2022-08-18 21:22] LABS: Glucose Point of Care 101 mg/dl (65-105)
[2022-08-19] VITALS (10 sets, daily range): BP systolic 121–134; BP diastolic 57–66; PULSE 68–116; RESP 18–20; TEMP 36.1–36.7; O2SAT 93–99
[2022-08-19] MEDS: HYDROcodone/acetaminophen (*CRX) 5-325 MG TABLET 1 TAB PO ×3 (05:28→21:30)
[2022-08-19] MEDS: APIXABAN 5 MG TABLET 10 MG PO ×2 (05:28→21:30)
[2022-08-19] MEDS: ERYTHROMYCIN OPHTH OINTMENT 1 GM TUBE 1 APPLIC EACH EYE ×5 (05:28→21:31)
[2022-08-19] MEDS: SODIUM CHLORIDE 0.9% IV 1,000 ML 100 ML IV CONT ×2 (05:30→17:44)
[2022-08-19 06:57] LABS: Basophils Absolute Auto 0.1 K/mm3 (0.0-0.1); Basophils Percent Auto 0.8 % (0.2-1.2); Eosinophils Absolute Auto 0.8 K/mm3 (0-0.3); Eosinophils Percent Auto 5.7 % (0-4.4); Hematocrit 41.6 % (42.0-52.0); Immature Granulocyte Absolute 0.26 K/mm3 (0.00-0.031); Immature Granulocyte Percent A 1.9 % (0-0.5); Lymphocytes Absolute Auto 2.49 K/mm3 (0.9-3.2); Lymphocytes Percent Auto 18.5 % (18.3-44.2); Mean Corpuscular HGB Conc 33.7 g/dl (32-36); Mean Corpuscular Hemoglobin 30.5 pg (26-34); Mean Corpuscular Volume 90.6 fl (80-100); Monocytes Absolute Auto 1.3 K/mm3 (0.1-0.6); Monocytes Percent Auto 9.7 % (2.6-8.5); Neutrophils Absolute Auto 8.5 K/mm3 (1.3-6.7); Neutrophils Percent Auto 63.4 % (45.5-73.1); Platelet Count Result 518 k/mm3 (150-375); Red Blood Count 4.59 M/mm3 (4.6-6.20); Red Cell Distribution Width 14.1 % (11.5-14.5); White Blood Count 13.4 K/mm3 (4.5-10.0)
[2022-08-19 07:06] LABS: Alanine Aminotransferase 15 U/L (6-50); Albumin Level 3.8 g/dL (3.5-5.1); Alkaline Phosphatase 54 U/L (38-126); Anion Gap 12 mmol/L (8-16); Aspartate Amino Transferase 21 U/L (17-59); Bilirubin,Total 0.5 mg/dL (0.2-1.3); Blood Urea Nitrogen 37 mg/dL (9-20); Carbon Dioxide 23 mmol/L (22-30); Chloride 96 mmol/L (98-107); Estimated CRCL calculation 41 ml/min; Estimated Glomerular Filt Rate 36; Glucose 189 mg/dL (65-110); Potassium 3.8 mmol/L (3.4-5.0); Sodium 131 mmol/L (137-145)
[2022-08-19] MEDS: VENLAFAXINE HCL 37.5 MG TABLET PO ×2 (08:07→17:38)
[2022-08-19] MEDS: allopurinoL 100 MG TABLET PO (08:07)
[2022-08-19] MEDS: MAGNESIUM OXIDE 400 MG TABLET PO (08:07)
[2022-08-19] MEDS: TAMSULOSIN HCL 0.4 MG CAPSULE PO ×2 (08:08→17:38)
[2022-08-19] MEDS: ASPIRIN 81 MG ENTERIC TABLET PO (08:08)
[2022-08-19] MEDS: FINASTERIDE 5 MG TABLET PO (08:08)
[2022-08-19] MEDS: METOPROLOL SUCCINATE EXT REL 12.5 MG TABCR PO (08:12)
[2022-08-19] MEDS: PREGABALIN (*CRX) 50 MG CAPSULE 100 MG PO ×2 (08:12→17:33)
[2022-08-19] MEDS: INSULIN ASPART (*BKC) 100 UNITS/ML 12 UNITS SUB-Q ×2 (08:14→11:59)
[2022-08-19] MEDS: INSULIN GLARGINE (*BKC) 100 UNITS/ML 32 UNITS SUB-Q (08:15)
[2022-08-19 08:20] LABS: Glucose Point of Care 187 mg/dl (65-105)
[2022-08-19] MEDS: FLUTICASONE/SALMETEROL 115-21 MCG INHALER 1 PUFF 2 PUFF INHALATION (09:30)
[2022-08-19] MEDS: ALBUTEROL SULFATE (*SP) AEROSOL 1 PUFF 2 PUFF INHALATION (09:30)
[2022-08-19 10:19] LABS: Glucose Point of Care 282 mg/dl (65-105)
--- NOTE | 2022-08-19 10:27 | ECG_ITS ---
Measurements Intervals [place] Rate: 110 P: 31 AR: 170 QRS: 1 QRSD: 98 T: 69 QT: 336 QTc: 455 Interpretive Statements SINUS TACHYCARDIA VENTRICULAR BIGEMINY NONSPECIFIC ST & T-WAVE ABNORMALITY- HIGH LATERAL LEADS BASELINE WANDER- V1 ABNORMAL ECG COMPARED TO ECG 08/16/2022 09:45:39 VENTRICULAR BIGEMINY NOW PRESENT Electronically Signed On 08-19-2022 11:01:15 CDT by Phillip Rodriguez D.O.
[2022-08-19] MEDS: POTASSIUM CHLORIDE 20 MEQ TABLET 40 MEQ PO (10:49)
[2022-08-19 11:05] LABS: Magnesium 1.4 mg/dL (1.6-2.3)
[2022-08-19 11:17] LABS: NT Pro B Type Natriuretic Pept 112 pg/mL (5-100)
--- NOTE | 2022-08-19 11:32 | P.PNIM_ITS ---
Progress Note: A&P Assessment and Plan (1) Pulmonary embolism: Qualifiers: Pulmonary embolism type: unspecified Chronicity: acute Acute cor pulmonale presence: without acute cor pulmonale Qualified Code(s): I26.99 - Other pulmonary embolism without acute cor pulmonale Code(s): I26.99 - Other pulmonary embolism without acute cor pulmonale Status: Acute Assessment and Plan: Patient with history of pulmonary embolism presented sinus tachycardia, hypoxia, and pleuritic CP. * CTA deferred due to questionable contrast allergy therefore V/Q scan ordered for evaluation * V/Q scan revealed high probability for pulmonary embolism with large wedge-s haped perfusion defect at the lingula, potentially both the superior and inferior segments, moderate-sized perfusion defect along the anterior segment of the right upper lobe and medial segment of the right middle lobe, and small perfusion defect along the lateral basilar segment of the left lower lobe with corresponding small airspace opacity at the lateral left lung base.? * 08/18/22 started on Eliquis. 10 mg BID x 7 days then 5 mg BID * Care coordination for neely check of Eliquis * Echocardiogram without RV strain. normal LV systolic function and grade 2 diastolic dysfunction and BNP 112 (2) Left lower lobe pneumonia: Qualifiers: Pneumonia type: due to unspecified organism Qualified Code(s): J18.9 - Pneumonia, unspecified organism Code(s): J18.9 - Pneumonia, unspecified organism Status: Acute Assessment and Plan: The patient presented to the emergency department for evaluation of 3 days of nonradiating, left anterior pleuritic pain as well as a nonproductive cough. Chest x-ray shows left lower lobe pneumonia. * Started on IV Levaquin 750 mg Q24 hours on 08/16/22 x 7 days, transition to 750 mg PO Q48 hours due to creatinine clearance with next dose 08/20/22 * Sputum culture ordered, but not yet obtained. * Legionella, mycoplasma, and pneumococcal urinary antigens pending. * Supportive care to include bronchodilators, expectorants, incentive spirometry * Covid and influenza negative * Currently requiring 1 L supplemental O2. Wean as tolerated to keep spO2>92% * Patient afebrile. WBC 13, patient with chronic leukocytosis? Monitor CBC (3) Acute on chronic kidney failure: Qualifiers: Acute renal failure type: with other specified pathological lesion Chronic kidney disease stage: stage 3 (moderate) Chronic kidney disease stage 3 subtype: stage 3a (GFR 45-59) Qualified Code(s): N17.8 - Other acute kidney failure; N18.31 - Chronic kidney disease, stage 3a Code(s): N17.9 - Acute kidney failure, unspecified; N18.9 - Chronic kidney disease, unspecified Status: Acute Assessment and Plan: Baseline creatinine appears to be 1.5-1.7. May be secondary to medications versus hypovolemia versus acute urinary retention * 08/19/22 PVR 400 mL. straight cath x1, repeat bladder scan in 8 hours. Continue flomax BID. Consider reinsertion of velasquez catheter if still with acute retention. * Renal ultrasound with normal kidneys and no evidence of hydronephrosis * IV fluids normal saline 100 ml/hr started 08/18/22, continue * Monitor renal function closely. * Avoid nephrotoxic agents (4) Insulin dependent diabetes mellitus: Status: Chronic Assessment and Plan: chronic, A1c is 7.9. * Continue Accu-Cheks, low-dose sliding scale insulin, and hypoglycemic protocol * Continue home Lantus with 20% dose reduction, 32 units qHS * NovoLog 12 units scheduled with meals * Home metformin on hold while inpatient. * glucose range 67 to 24
--- NOTE | 2022-08-19 11:32 | PM.IMPN ---
Progress Note: A&P Assessment and Plan (1) Pulmonary embolism: Qualifiers: Pulmonary embolism type: unspecified Chronicity: acute Acute cor pulmonale presence: without acute cor pulmonale Qualified Code(s): I26.99 - Other pulmonary embolism without acute cor pulmonale Code(s): I26.99 - Other pulmonary embolism without acute cor pulmonale Status: Acute Assessment and Plan: Patient with history of pulmonary embolism presented sinus tachycardia, hypoxia, and pleuritic CP. CTA deferred due to questionable contrast allergy therefore V/Q scan ordered for evaluation V/Q scan revealed high probability for pulmonary embolism with large wedge-shaped perfusion defect at the lingula, potentially both the superior and inferior segments, moderate-sized perfusion defect along the anterior segment of the right upper lobe and medial segment of the right middle lobe, and small perfusion defect along the lateral basilar segment of the left lower lobe with corresponding small airspace opacity at the lateral left lung base.? 08/18/22 started on Eliquis. 10 mg BID x 7 days then 5 mg BID Care coordination for neely check of Eliquis Echocardiogram without RV strain. normal LV systolic function and grade 2 diastolic dysfunction and BNP 112 (2) Left lower lobe pneumonia: Qualifiers: Pneumonia type: due to unspecified organism Qualified Code(s): J18.9 - Pneumonia, unspecified organism Code(s): J18.9 - Pneumonia, unspecified organism Status: Acute Assessment and Plan: The patient presented to the emergency department for evaluation of 3 days of nonradiating, left anterior pleuritic pain as well as a nonproductive cough. Chest x-ray shows left lower lobe pneumonia. Started on IV Levaquin 750 mg Q24 hours on 08/16/22 x 7 days, transition to 750 mg PO Q48 hours due to creatinine clearance with next dose 08/20/22 Sputum culture ordered, but not yet obtained. Legionella, mycoplasma, and pneumococcal urinary antigens pending. Supportive care to include bronchodilators, expectorants, incentive spirometry Covid and influenza negative Currently requiring 1 L supplemental O2. Wean as tolerated to keep spO2>92% Patient afebrile. WBC 13, patient with chronic leukocytosis? Monitor CBC (3) Acute on chronic kidney failure: Qualifiers: Acute renal failure type: with other specified pathological lesion Chronic kidney disease stage: stage 3 (moderate) Chronic kidney disease stage 3 subtype: stage 3a (GFR 45-59) Qualified Code(s): N17.8 - Other acute kidney failure; N18.31 - Chronic kidney disease, stage 3a Code(s): N17.9 - Acute kidney failure, unspecified; N18.9 - Chronic kidney disease, unspecified Status: Acute Assessment and Plan: Baseline creatinine appears to be 1.5-1.7. May be secondary to medications versus hypovolemia versus acute urinary retention 08/19/22 PVR 400 mL. straight cath x1, repeat bladder scan in 8 hours. Continue flomax BID. Consider reinsertion of velasquez catheter if still with acute retention. Renal ultrasound with normal kidneys and no evidence of hydronephrosis IV fluids normal saline 100 ml/hr started 08/18/22, continue Monitor renal function closely. Avoid nephrotoxic agents (4) Insulin dependent diabetes mellitus: Status: Chronic Assessment and Plan: chronic, A1c is 7.9. Continue Accu-Cheks, low-dose sliding scale insulin, and hypoglycemic protocol Continue home Lantus with 20% dose reduction, 32 units qHS NovoLog 12 units scheduled with meals Home metformin on hold while inpatient. glucose range 67 to 242 today. Holding novolog with supper for glucose 67 and repeat after eating per protocol. (5) Frequent falls: Code(s): R29.6 - Repeated falls Status: Acute Assessment and Plan: Secondary to a combination of neuropathy from his diabetes and possible orthostatic hypotension (he has a prescription for mido
[2022-08-19 11:46] LABS: Glucose Point of Care 245 mg/dl (65-105)
[2022-08-19 11:48] LABS: Creatine Kinase MB 1.6 ng/mL (0.0-2.37); Troponin I < 0.012 ng/mL (0.000-0.034)
[2022-08-19] MEDS: diazePAM INJ (*CRX) 10 MG/2 ML SYRINGE 2 MG IV PUSH (11:54)
[2022-08-19] MEDS: MAGNESIUM SULFATE 3GM/D5W100ML 3 GM/100 ML BAG IVPB (11:54)
[2022-08-19] MEDS: guaiFENesin 12 HR 600 MG TABCR PO ×2 (11:55→21:30)
[2022-08-19] MEDS: INSULIN ASPART (*BKC) 100 UNITS/ML SUB-Q (11:59)
--- NOTE | 2022-08-19 12:05 | PCPTNOTE ---
Patient declined PT this morning stating he was not feeling well. Patient states he has been lightheaded with chest pain this morning. RN aware of patient's c/o.
[2022-08-19] MEDS: diazePAM INJ (*CRX) 10 MG/2 ML SYRINGE 5 MG IV PUSH (14:35)
[2022-08-19] MEDS: LIDOCAINE 5% PATCH 1 PATCH TRANSDERM (14:37)
[2022-08-19 16:58] LABS: Glucose Point of Care 67 mg/dl (65-105)
[2022-08-19] MEDS: LIDOCAINE HCL 2% GEL UROJET 10 ML PKG MUCOUS MEM ×2 (17:43→22:59)
[2022-08-19 20:26] LABS: Glucose Point of Care 155 mg/dl (65-105)
[2022-08-19] MEDS: PRAVASTATIN SODIUM 20 MG TABLET 40 MG PO (21:29)
[2022-08-19] MEDS: ZOLPIDEM TARTRATE (*CRX) 5 MG TABLET 10 MG PO (21:29)
[2022-08-19] MEDS: FENOFIBRATE 160 MG TABLET PO (21:30)
[2022-08-19] MEDS: diazePAM (*CRX) 2 MG TABLET PO (21:31)
[2022-08-19] MEDS: MONTELUKAST SODIUM 10 MG TABLET PO (21:32)
[2022-08-19] MEDS: METOPROLOL SUCCINATE EXT REL 25 MG TABCR PO (21:32)
[2022-08-20] VITALS (17 sets, daily range): BP systolic 118–144; BP diastolic 45–79; PULSE 52–106; RESP 22; TEMP 35.8–36.5; O2SAT 86–96
[2022-08-20] LABS: Pneumococcal Antigen Urine Not Detected (Not Detected)
--- NOTE | 2022-08-20 03:14 | PCRCNOTE ---
Window of time for administration has passed. See next scheduled administration.
[2022-08-20] MEDS: SODIUM CHLORIDE 0.9% IV 1,000 ML 100 ML IV CONT (04:51)
[2022-08-20] MEDS: ERYTHROMYCIN OPHTH OINTMENT 1 GM TUBE 1 APPLIC EACH EYE ×5 (04:51→20:19)
[2022-08-20] MEDS: TORSEMIDE 20 MG TABLET PO (05:28)
[2022-08-20 05:41] LABS: Glucose Point of Care 146 mg/dl (65-105)
[2022-08-20 07:01] LABS: Basophils Absolute Auto 0.1 K/mm3 (0.0-0.1); Basophils Percent Auto 0.8 % (0.2-1.2); Eosinophils Absolute Auto 0.7 K/mm3 (0-0.3); Eosinophils Percent Auto 4.9 % (0-4.4); Hematocrit 37.7 % (42.0-52.0); Hemoglobin 12.2 g/dL (14.0-18.0); Immature Granulocyte Absolute 0.19 K/mm3 (0.00-0.031); Immature Granulocyte Percent A 1.4 % (0-0.5); Lymphocytes Absolute Auto 2.29 K/mm3 (0.9-3.2); Lymphocytes Percent Auto 17.1 % (18.3-44.2); Mean Corpuscular HGB Conc 32.4 g/dl (32-36); Mean Corpuscular Hemoglobin 30.3 pg (26-34); Mean Corpuscular Volume 93.8 fl (80-100); Monocytes Absolute Auto 1.2 K/mm3 (0.1-0.6); Monocytes Percent Auto 8.6 % (2.6-8.5); Neutrophils Percent Auto 67.2 % (45.5-73.1); Platelet Count Result 458 k/mm3 (150-375); Red Blood Count 4.02 M/mm3 (4.6-6.20); Red Cell Distribution Width 14.6 % (11.5-14.5); White Blood Count 13.4 K/mm3 (4.5-10.0)
[2022-08-20 07:20] LABS: Alanine Aminotransferase 11 U/L (6-50); Albumin Level 2.5 g/dL (3.5-5.1); Alkaline Phosphatase 31 U/L (38-126); Anion Gap 8 mmol/L (8-16); Aspartate Amino Transferase 18 U/L (17-59); Bilirubin,Total 0.3 mg/dL (0.2-1.3); Blood Urea Nitrogen 21 mg/dL (9-20); Calcium 5.9 mg/dL (8.4-10.2); Carbon Dioxide 17 mmol/L (22-30); Chloride 111 mmol/L (98-107); Estimated CRCL calculation 77 ml/min; Estimated Glomerular Filt Rate > 60; Glucose 142 mg/dL (65-110); Magnesium 1.3 mg/dL (1.6-2.3); Potassium 2.9 mmol/L (3.4-5.0); Sodium 136 mmol/L (137-145)
[2022-08-20 07:40] LABS: Glucose Point of Care 216 mg/dl (65-105)
[2022-08-20] MEDS: INSULIN ASPART (*BKC) 100 UNITS/ML 12 UNITS SUB-Q ×2 (08:37→11:41)
[2022-08-20] MEDS: INSULIN ASPART (*BKC) 100 UNITS/ML SUB-Q ×2 (08:37→11:39)
[2022-08-20] MEDS: APIXABAN 5 MG TABLET 10 MG PO ×2 (08:39→20:18)
[2022-08-20] MEDS: FINASTERIDE 5 MG TABLET PO (08:39)
[2022-08-20] MEDS: levoFLOXacin 750 MG TABLET PO (08:40)
[2022-08-20] MEDS: VENLAFAXINE HCL 37.5 MG TABLET PO ×2 (08:40→17:27)
[2022-08-20] MEDS: MAGNESIUM OXIDE 400 MG TABLET PO (08:40)
[2022-08-20] MEDS: TAMSULOSIN HCL 0.4 MG CAPSULE PO ×2 (08:40→17:27)
[2022-08-20] MEDS: ASPIRIN 81 MG ENTERIC TABLET PO (08:40)
[2022-08-20] MEDS: allopurinoL 100 MG TABLET PO (08:40)
[2022-08-20] MEDS: LIDOCAINE 5% PATCH 1 PATCH TRANSDERM (08:41)
[2022-08-20] MEDS: METOPROLOL SUCCINATE EXT REL 25 MG TABCR PO ×2 (08:41→20:19)
[2022-08-20] MEDS: guaiFENesin 12 HR 600 MG TABCR PO ×2 (08:42→20:19)
[2022-08-20] MEDS: INSULIN GLARGINE (*BKC) 100 UNITS/ML 32 UNITS SUB-Q (08:43)
[2022-08-20 08:46] LABS: Anion Gap 9 mmol/L (8-16); Blood Urea Nitrogen 27 mg/dL (9-20); Calcium 8.6 mg/dL (8.4-10.2); Carbon Dioxide 23 mmol/L (22-30); Chloride 101 mmol/L (98-107); Estimated CRCL calculation 56 ml/min; Estimated Glomerular Filt Rate 51; Glucose 211 mg/dL (65-110); Potassium 3.9 mmol/L (3.4-5.0); Sodium 133 mmol/L (137-145)
[2022-08-20] MEDS: POTASSIUM CHLORIDE 20 MEQ TABLET 40 MEQ PO (08:49)
[2022-08-20] MEDS: PREGABALIN (*CRX) 50 MG CAPSULE 100 MG PO ×2 (08:49→17:27)
[2022-08-20 09:07] LABS: Glucose Point of Care 234 mg/dl (65-105)
[2022-08-20] MEDS: ALBUTEROL SULFATE (*SP) AEROSOL 1 PUFF 2 PUFF INHALATION (09:15)
[2022-08-20] MEDS: FLUTICASONE/SALMETEROL 115-21 MCG INHALER 1 PUFF 2 PUFF INHALATION ×2 (09:15→20:47)
[2022-08-20] MEDS: CYCLOBENZAPRINE HCL 10 MG TABLET PO (10:17)
[2022-08-20] MEDS: HYDROcodone/acetaminophen (*CRX) 5-325 MG TABLET 1 TAB PO ×3 (10:17→23:33)
[2022-08-20 11:14] LABS: Glucose Point of Care 261 mg/dl (65-105)
--- NOTE | 2022-08-20 11:33 | P.PNIM_ITS ---
Progress Note: A&P Assessment and Plan (1) Pulmonary embolism: Qualifiers: Acute cor pulmonale presence: without acute cor pulmonale Chronicity: acute Pulmonary embolism type: unspecified Qualified Code(s): I26.99 - Other pulmonary embolism without acute cor pulmonale Code(s): I26.99 - Other pulmonary embolism without acute cor pulmonale Status: Acute Assessment and Plan: Patient with history of pulmonary embolism presented sinus tachycardia, hypoxia, and pleuritic CP. * CTA deferred due to questionable contrast allergy therefore V/Q scan ordered for evaluation * V/Q scan revealed high probability for pulmonary embolism with large wedge-s haped perfusion defect at the lingula, potentially both the superior and inferior segments, moderate-sized perfusion defect along the anterior segment of the right upper lobe and medial segment of the right middle lobe, and small perfusion defect along the lateral basilar segment of the left lower lobe with corresponding small airspace opacity at the lateral left lung base.? * 08/18/22 started on Eliquis. 10 mg BID x 7 days then 5 mg BID * Care coordination for neely check of Eliquis * Echocardiogram without RV strain. normal LV systolic function and grade 2 diastolic dysfunction and BNP 112 (2) Left lower lobe pneumonia: Qualifiers: Pneumonia type: due to unspecified organism Qualified Code(s): J18.9 - Pneumonia, unspecified organism Code(s): J18.9 - Pneumonia, unspecified organism Status: Acute Assessment and Plan: The patient presented to the emergency department for evaluation of 3 days of nonradiating, left anterior pleuritic pain as well as a nonproductive cough. Chest x-ray shows left lower lobe pneumonia. * Started on IV Levaquin 750 mg Q24 hours on 08/16/22 x 7 days, transition to 750 mg PO Q48 hours due to creatinine clearance with next dose 08/20/22 * Sputum culture ordered, but not yet obtained. * Legionella and pneumococcal urinary antigens pending. * mycoplasma negative * Supportive care to include bronchodilators, expectorants, incentive spirometry * Covid and influenza negative * Currently requiring 1 L supplemental O2. Wean as tolerated to keep spO2>92% * Patient afebrile. WBC 13, patient with chronic leukocytosis? Monitor CBC (3) Acute on chronic kidney failure: Qualifiers: Acute renal failure type: with other specified pathological lesion Chronic kidney disease stage: stage 3 (moderate) Chronic kidney disease stage 3 subtype: stage 3a (GFR 45-59) Qualified Code(s): N17.8 - Other acute kidney failure; N18.31 - Chronic kidney disease, stage 3a Code(s): N17.9 - Acute kidney failure, unspecified; N18.9 - Chronic kidney disease, unspecified Status: Acute Assessment and Plan: Baseline creatinine appears to be 1.5-1.7. May be secondary to medications versus hypovolemia versus acute urinary retention * 08/19/22 PVR 400 mL. straight cath x1, repeat bladder scan in 8 hours. Continue flomax BID. Consider reinsertion of velasuqez catheter if still with acute retention. * Renal ultrasound with normal kidneys and no evidence of hydronephrosis * IV fluids normal saline 100 ml/hr started 08/18/22, continue * Monitor renal function closely. * Avoid nephrotoxic agents * 08/20/22 urinary catheter inserted overnight. Continue tamsulosin. He has seen [facility] in the past and should follow outpatient. (4) Insulin dependent diabetes mellitus: Status: Chronic Assessment and Plan: chronic, A1c is 7.9. * Continue Accu-Cheks, low-dose sliding scale insulin, and hypoglycemic protocol * Continue home Lantus
--- NOTE | 2022-08-20 11:33 | PM.IMPN ---
Progress Note: A&P Assessment and Plan (1) Pulmonary embolism: Qualifiers: Acute cor pulmonale presence: without acute cor pulmonale Chronicity: acute Pulmonary embolism type: unspecified Qualified Code(s): I26.99 - Other pulmonary embolism without acute cor pulmonale Code(s): I26.99 - Other pulmonary embolism without acute cor pulmonale Status: Acute Assessment and Plan: Patient with history of pulmonary embolism presented sinus tachycardia, hypoxia, and pleuritic CP. CTA deferred due to questionable contrast allergy therefore V/Q scan ordered for evaluation V/Q scan revealed high probability for pulmonary embolism with large wedge-shaped perfusion defect at the lingula, potentially both the superior and inferior segments, moderate-sized perfusion defect along the anterior segment of the right upper lobe and medial segment of the right middle lobe, and small perfusion defect along the lateral basilar segment of the left lower lobe with corresponding small airspace opacity at the lateral left lung base.? 08/18/22 started on Eliquis. 10 mg BID x 7 days then 5 mg BID Care coordination for neely check of Eliquis Echocardiogram without RV strain. normal LV systolic function and grade 2 diastolic dysfunction and BNP 112 (2) Left lower lobe pneumonia: Qualifiers: Pneumonia type: due to unspecified organism Qualified Code(s): J18.9 - Pneumonia, unspecified organism Code(s): J18.9 - Pneumonia, unspecified organism Status: Acute Assessment and Plan: The patient presented to the emergency department for evaluation of 3 days of nonradiating, left anterior pleuritic pain as well as a nonproductive cough. Chest x-ray shows left lower lobe pneumonia. Started on IV Levaquin 750 mg Q24 hours on 08/16/22 x 7 days, transition to 750 mg PO Q48 hours due to creatinine clearance with next dose 08/20/22 Sputum culture ordered, but not yet obtained. Legionella and pneumococcal urinary antigens pending. mycoplasma negative Supportive care to include bronchodilators, expectorants, incentive spirometry Covid and influenza negative Currently requiring 1 L supplemental O2. Wean as tolerated to keep spO2>92% Patient afebrile. WBC 13, patient with chronic leukocytosis? Monitor CBC (3) Acute on chronic kidney failure: Qualifiers: Acute renal failure type: with other specified pathological lesion Chronic kidney disease stage: stage 3 (moderate) Chronic kidney disease stage 3 subtype: stage 3a (GFR 45-59) Qualified Code(s): N17.8 - Other acute kidney failure; N18.31 - Chronic kidney disease, stage 3a Code(s): N17.9 - Acute kidney failure, unspecified; N18.9 - Chronic kidney disease, unspecified Status: Acute Assessment and Plan: Baseline creatinine appears to be 1.5-1.7. May be secondary to medications versus hypovolemia versus acute urinary retention 08/19/22 PVR 400 mL. straight cath x1, repeat bladder scan in 8 hours. Continue flomax BID. Consider reinsertion of velasquez catheter if still with acute retention. Renal ultrasound with normal kidneys and no evidence of hydronephrosis IV fluids normal saline 100 ml/hr started 08/18/22, continue Monitor renal function closely. Avoid nephrotoxic agents 08/20/22 urinary catheter inserted overnight. Continue tamsulosin. He has seen [facility] in the past and should follow outpatient. (4) Insulin dependent diabetes mellitus: Status: Chronic Assessment and Plan: chronic, A1c is 7.9. Continue Accu-Cheks, low-dose sliding scale insulin, and hypoglycemic protocol Continue home Lantus with 20% dose reduction, 32 units qHS NovoLog 12 units scheduled with meals Home metformin on hold while inpatient. 08/19/22 glucose range 67 to 242 today. Holding novolog with supper for glucose 67 and repeat after eating per protocol. 08/20/22 glucose range 146-261 continue current basal-bolus insulin and adjust tomorrow i
[2022-08-20] MEDS: polyethylene glycoL 3350 17 GM POWD.PACK PO (11:39)
[2022-08-20 12:26] LABS: Appearance Urine Clear (Clear); Bilirubin Urine Negative (Negative); Blood Urine 3+ (Negative); Color Urine Yellow (Yellow); Glucose Urine UA Negative (Negative); Ketones Urine Negative (Negative); Leukocyte Esterase Ur Trace LEU/UL (Negative); Nitrate Urine Negative (Negative); Protein Urine 1+ mg/dL (Negative); Urobilinogen Urine 0.2 mg/dL (<2.0)
[2022-08-20 12:55] LABS: Add Urine Microscopic? YES; Bacteria Urine Trace /hpf; Mucus Urine Rare /lpf; RBC Urine >75 /hpf (0-2)
[2022-08-20 14:02] LABS: Mycoplasma IgM Antibody Titer 158 U/mL (<770)
[2022-08-20 16:10] LABS: Glucose Point of Care 82 mg/dl (65-105)
[2022-08-20] MEDS: diazePAM (*CRX) 2 MG TABLET PO (20:18)
[2022-08-20] MEDS: FENOFIBRATE 160 MG TABLET PO (20:19)
[2022-08-20] MEDS: MONTELUKAST SODIUM 10 MG TABLET PO (20:21)
[2022-08-20] MEDS: ZOLPIDEM TARTRATE (*CRX) 5 MG TABLET 10 MG PO (20:22)
[2022-08-20] MEDS: PRAVASTATIN SODIUM 20 MG TABLET 40 MG PO (20:22)
[2022-08-20 22:22] LABS: Glucose Point of Care 196 mg/dl (65-105)
[2022-08-21] VITALS (16 sets, daily range): BP systolic 118–132; BP diastolic 54–65; PULSE 49–106; RESP 16–18; TEMP 35.8–36.1; O2SAT 92–94
[2022-08-21 00:32] LABS: Glucose Point of Care 166 mg/dl (65-105)
[2022-08-21] MEDS: ACETAMINOPHEN 325 MG TABLET 650 MG PO ×2 (02:14→18:02)
[2022-08-21] MEDS: HYDROcodone/acetaminophen (*CRX) 5-325 MG TABLET 1 TAB PO ×4 (03:39→20:40)
--- NOTE | 2022-08-21 04:53 | PC.NURSE ---
@0330 and 0440 patient had 5 beat runs of v tach. Dr. Pratt notified and stat labs were drawn
[2022-08-21 05:08] LABS: Basophils Absolute Auto 0.2 K/mm3 (0.0-0.1); Basophils Percent Auto 0.9 % (0.2-1.2); Eosinophils Absolute Auto 1.1 K/mm3 (0-0.3); Eosinophils Percent Auto 5.7 % (0-4.4); Hemoglobin 13.5 g/dL (14.0-18.0); Immature Granulocyte Absolute 0.23 K/mm3 (0.00-0.031); Immature Granulocyte Percent A 1.3 % (0-0.5); Lymphocytes Absolute Auto 3.36 K/mm3 (0.9-3.2); Lymphocytes Percent Auto 18.4 % (18.3-44.2); Mean Corpuscular HGB Conc 32.9 g/dl (32-36); Mean Corpuscular Hemoglobin 29.8 pg (26-34); Mean Corpuscular Volume 90.5 fl (80-100); Mean Platelet Volume 10.9 fl (7.4-10.4); Monocytes Absolute Auto 1.6 K/mm3 (0.1-0.6); Monocytes Percent Auto 8.9 % (2.6-8.5); Neutrophils Absolute Auto 11.8 K/mm3 (1.3-6.7); Neutrophils Percent Auto 64.8 % (45.5-73.1); Platelet Count Result 533 k/mm3 (150-375); Red Blood Count 4.53 M/mm3 (4.6-6.20); Red Cell Distribution Width 14.6 % (11.5-14.5); White Blood Count 18.3 K/mm3 (4.5-10.0)
[2022-08-21 05:14] LABS: Phosphorus 2.7 mg/dL (2.5-4.5)
[2022-08-21 05:16] LABS: Magnesium 1.7 mg/dL (1.6-2.3)
[2022-08-21] MEDS: ERYTHROMYCIN OPHTH OINTMENT 1 GM TUBE 1 APPLIC EACH EYE ×5 (05:17→20:39)
[2022-08-21 05:35] LABS: Alanine Aminotransferase 15 U/L (6-50); Albumin Level 3.6 g/dL (3.5-5.1); Alkaline Phosphatase 57 U/L (38-126); Anion Gap 8 mmol/L (8-16); Aspartate Amino Transferase 26 U/L (17-59); Bilirubin,Total 0.4 mg/dL (0.2-1.3); Blood Urea Nitrogen 29 mg/dL (9-20); Calcium 8.6 mg/dL (8.4-10.2); Carbon Dioxide 24 mmol/L (22-30); Chloride 101 mmol/L (98-107); Estimated CRCL calculation 52 ml/min; Estimated Glomerular Filt Rate 47; Glucose 168 mg/dL (65-110); Potassium 4.2 mmol/L (3.4-5.0); Sodium 133 mmol/L (137-145)
[2022-08-21] MEDS: diazePAM (*CRX) 2 MG TABLET 1 MG PO (06:21)
[2022-08-21 08:27] LABS: Glucose Point of Care 154 mg/dl (65-105)
[2022-08-21] MEDS: TAMSULOSIN HCL 0.4 MG CAPSULE PO ×2 (08:30→18:03)
[2022-08-21] MEDS: VENLAFAXINE HCL 37.5 MG TABLET PO ×2 (08:30→18:03)
[2022-08-21] MEDS: FINASTERIDE 5 MG TABLET PO (08:31)
[2022-08-21] MEDS: METOPROLOL SUCCINATE EXT REL 25 MG TABCR PO ×2 (08:31→20:39)
[2022-08-21] MEDS: MAGNESIUM OXIDE 400 MG TABLET PO (08:31)
[2022-08-21] MEDS: PREGABALIN (*CRX) 50 MG CAPSULE 100 MG PO ×2 (08:31→18:02)
[2022-08-21] MEDS: guaiFENesin 12 HR 600 MG TABCR PO (08:32)
[2022-08-21] MEDS: ASPIRIN 81 MG ENTERIC TABLET PO (08:32)
[2022-08-21] MEDS: APIXABAN 5 MG TABLET 10 MG PO ×2 (08:32→20:38)
[2022-08-21] MEDS: allopurinoL 100 MG TABLET PO (08:32)
[2022-08-21] MEDS: INSULIN ASPART (*BKC) 100 UNITS/ML 12 UNITS SUB-Q ×2 (08:34→11:57)
[2022-08-21] MEDS: INSULIN GLARGINE (*BKC) 100 UNITS/ML 32 UNITS SUB-Q (08:34)
[2022-08-21] MEDS: polyethylene glycoL 3350 17 GM POWD.PACK PO (08:34)
[2022-08-21] MEDS: LIDOCAINE 5% PATCH 1 PATCH TRANSDERM (08:35)
[2022-08-21] MEDS: FLUTICASONE/SALMETEROL 115-21 MCG INHALER 1 PUFF 2 PUFF INHALATION ×2 (09:48→20:45)
--- NOTE | 2022-08-21 10:55 | PCOTNOTE ---
Attempted to see patient this am, however patient stated I just got back to bed from going to the bathroom.
[2022-08-21] MEDS: MAGNESIUM SULF 2 GM/WATER 50ML 2 GM/50 ML BAG IVPB (11:05)
[2022-08-21 11:45] LABS: Glucose Point of Care 127 mg/dl (65-105)
[2022-08-21] MEDS: BISACODYL 10 MG SUPPOSITORY RECTAL (15:10)
[2022-08-21 16:39] LABS: Glucose Point of Care 82 mg/dl (65-105)
--- NOTE | 2022-08-21 16:47 | PM.IMPN ---
Progress Note: A&P Assessment and Plan (1) Pulmonary embolism: Qualifiers: Acute cor pulmonale presence: without acute cor pulmonale Chronicity: acute Pulmonary embolism type: unspecified Qualified Code(s): I26.99 - Other pulmonary embolism without acute cor pulmonale Code(s): I26.99 - Other pulmonary embolism without acute cor pulmonale Status: Acute Assessment and Plan: Patient with history of pulmonary embolism presented sinus tachycardia, hypoxia, and pleuritic CP. CTA deferred due to questionable contrast allergy therefore V/Q scan ordered for evaluation V/Q scan revealed high probability for pulmonary embolism with large wedge-shaped perfusion defect at the lingula, potentially both the superior and inferior segments, moderate-sized perfusion defect along the anterior segment of the right upper lobe and medial segment of the right middle lobe, and small perfusion defect along the lateral basilar segment of the left lower lobe with corresponding small airspace opacity at the lateral left lung base.? 08/18/22 started on Eliquis. 10 mg BID x 7 days then 5 mg BID Care coordination for neely check of Eliquis Echocardiogram without RV strain. normal LV systolic function and grade 2 diastolic dysfunction and BNP 112 08/21/22 spo2 93-96% 1 L NC. Day 4 of 7 Eliquis 10 mg BID. No s/s acute bleeding. Left-sided chest pain persists but reproducible. Cardiac markers negative. Echo without RV strain. (2) Left lower lobe pneumonia: Qualifiers: Pneumonia type: due to unspecified organism Qualified Code(s): J18.9 - Pneumonia, unspecified organism Code(s): J18.9 - Pneumonia, unspecified organism Status: Acute Assessment and Plan: The patient presented to the emergency department for evaluation of 3 days of nonradiating, left anterior pleuritic pain as well as a nonproductive cough. Chest x-ray shows left lower lobe pneumonia. Started on IV Levaquin 750 mg Q24 hours on 08/16/22 x 7 days, transition to 750 mg PO Q48 hours due to creatinine clearance with next dose 08/20/22 Sputum culture ordered, but not yet obtained. Legionella and pneumococcal urinary antigens pending. mycoplasma negative Supportive care to include bronchodilators, expectorants, incentive spirometry Covid and influenza negative Currently requiring 1 L supplemental O2. Wean as tolerated to keep spO2>92% Patient afebrile. WBC 13, patient with chronic leukocytosis? Monitor CBC 08/21/22 WBC 18 but afebrile without worsening respiratory status. Seems unlikely to be recurrent/persistent pneumonia. Sputum clear. 08/22 last dose of levaquin (3) Acute on chronic kidney failure: Qualifiers: Acute renal failure type: with other specified pathological lesion Chronic kidney disease stage: stage 3 (moderate) Chronic kidney disease stage 3 subtype: stage 3a (GFR 45-59) Qualified Code(s): N17.8 - Other acute kidney failure; N18.31 - Chronic kidney disease, stage 3a Code(s): N17.9 - Acute kidney failure, unspecified; N18.9 - Chronic kidney disease, unspecified Status: Acute Assessment and Plan: Baseline creatinine appears to be 1.5-1.7. May be secondary to medications versus hypovolemia versus acute urinary retention 08/19/22 PVR 400 mL. straight cath x1, repeat bladder scan in 8 hours. Continue flomax BID. Consider reinsertion of velasquez catheter if still with acute retention. Renal ultrasound with normal kidneys and no evidence of hydronephrosis IV fluids normal saline 100 ml/hr started 08/18/22, stopped 08/20/22 Monitor renal function closely. Avoid nephrotoxic agents 08/20/22 urinary catheter inserted overnight. Continue tamsulosin. He has seen [facility] in the past and should follow outpatient. 08/21/22 renal function still baseline. Sodium 134, K >4, Mag 1.7 and given additional 2 grams IV mag sulfate with goal >2 d/t frequent PVCs. Monitor I/O (4) Insulin dependent diabetes mellitus:
[2022-08-21] MEDS: BENZONATATE 100 MG CAPSULE PO (18:02)
[2022-08-21] MEDS: diazePAM (*CRX) 2 MG TABLET PO (20:38)
[2022-08-21] MEDS: FENOFIBRATE 160 MG TABLET PO (20:39)
[2022-08-21] MEDS: ZOLPIDEM TARTRATE (*CRX) 5 MG TABLET 10 MG PO (20:40)
[2022-08-21] MEDS: PRAVASTATIN SODIUM 20 MG TABLET 40 MG PO (20:40)
[2022-08-21] MEDS: MONTELUKAST SODIUM 10 MG TABLET PO (20:40)
[2022-08-21 21:24] LABS: Glucose Point of Care 136 mg/dl (65-105)
[2022-08-22] VITALS (15 sets, daily range): BP systolic 115–119; BP diastolic 43–99; PULSE 49–106; RESP 16–19; TEMP 35.8–36.3; O2SAT 92–96
[2022-08-22 04:20] LABS: Legionella pneumophila Ag Ur Not Detected (Not Detected)
[2022-08-22] MEDS: HYDROcodone/acetaminophen (*CRX) 5-325 MG TABLET 1 TAB PO ×2 (04:52→16:44)
[2022-08-22] MEDS: ERYTHROMYCIN OPHTH OINTMENT 1 GM TUBE 1 APPLIC EACH EYE ×5 (04:53→20:16)
[2022-08-22 06:41] LABS: Basophils Absolute Auto 0.1 K/mm3 (0.0-0.1); Eosinophils Absolute Auto 0.8 K/mm3 (0-0.3); Eosinophils Percent Auto 5.3 % (0-4.4); Hematocrit 42.6 % (42.0-52.0); Hemoglobin 14.3 g/dL (14.0-18.0); Immature Granulocyte Absolute 0.18 K/mm3 (0.00-0.031); Immature Granulocyte Percent A 1.3 % (0-0.5); Lymphocytes Absolute Auto 2.95 K/mm3 (0.9-3.2); Lymphocytes Percent Auto 20.9 % (18.3-44.2); Mean Corpuscular HGB Conc 33.6 g/dl (32-36); Mean Corpuscular Hemoglobin 30.6 pg (26-34); Mean Corpuscular Volume 91.2 fl (80-100); Mean Platelet Volume 11.2 fl (7.4-10.4); Monocytes Absolute Auto 1.2 K/mm3 (0.1-0.6); Monocytes Percent Auto 8.8 % (2.6-8.5); Neutrophils Absolute Auto 8.9 K/mm3 (1.3-6.7); Neutrophils Percent Auto 62.7 % (45.5-73.1); Nucleated Red Blood Cells Perc 0.2 % (0.0-0.2); Platelet Count Result 543 k/mm3 (150-375); Red Blood Count 4.67 M/mm3 (4.6-6.20); Red Cell Distribution Width 14.7 % (11.5-14.5); White Blood Count 14.1 K/mm3 (4.5-10.0)
[2022-08-22 06:51] LABS: Alanine Aminotransferase 16 U/L (6-50); Albumin Level 3.7 g/dL (3.5-5.1); Alkaline Phosphatase 54 U/L (38-126); Anion Gap 10 mmol/L (8-16); Aspartate Amino Transferase 35 U/L (17-59); Bilirubin,Total 0.6 mg/dL (0.2-1.3); Blood Urea Nitrogen 27 mg/dL (9-20); Calcium 8.8 mg/dL (8.4-10.2); Carbon Dioxide 21 mmol/L (22-30); Chloride 101 mmol/L (98-107); Estimated CRCL calculation 57 ml/min; Estimated Glomerular Filt Rate 51; Glucose 211 mg/dL (65-110); Magnesium 1.9 mg/dL (1.6-2.3); Potassium 4.3 mmol/L (3.4-5.0); Sodium 132 mmol/L (137-145)
[2022-08-22] MEDS: diazePAM (*CRX) 2 MG TABLET 1 MG PO (06:59)
[2022-08-22 07:56] LABS: Glucose Point of Care 229 mg/dl (65-105)
[2022-08-22] MEDS: VENLAFAXINE HCL 37.5 MG TABLET PO ×2 (08:16→16:47)
[2022-08-22] MEDS: allopurinoL 100 MG TABLET PO (08:17)
[2022-08-22] MEDS: APIXABAN 5 MG TABLET 10 MG PO ×2 (08:17→20:16)
[2022-08-22] MEDS: CYCLOBENZAPRINE HCL 5 MG TABLET PO (08:17)
[2022-08-22] MEDS: MAGNESIUM OXIDE 400 MG TABLET PO ×2 (08:17→18:03)
[2022-08-22] MEDS: TAMSULOSIN HCL 0.4 MG CAPSULE PO ×2 (08:18→16:47)
[2022-08-22] MEDS: BENZONATATE 100 MG CAPSULE PO ×3 (08:18→16:45)
[2022-08-22] MEDS: levoFLOXacin 750 MG TABLET PO (08:18)
[2022-08-22] MEDS: METOPROLOL SUCCINATE EXT REL 25 MG TABCR PO ×2 (08:18→20:21)
[2022-08-22] MEDS: ASPIRIN 81 MG ENTERIC TABLET PO (08:19)
[2022-08-22] MEDS: INSULIN ASPART (*BKC) 100 UNITS/ML SUB-Q (08:21)
[2022-08-22] MEDS: INSULIN GLARGINE (*BKC) 100 UNITS/ML 32 UNITS SUB-Q (08:22)
[2022-08-22] MEDS: INSULIN ASPART (*BKC) 100 UNITS/ML 12 UNITS SUB-Q ×3 (08:22→16:46)
[2022-08-22] MEDS: LIDOCAINE 5% PATCH 1 PATCH TRANSDERM (08:23)
[2022-08-22] MEDS: FINASTERIDE 5 MG TABLET PO (08:30)
[2022-08-22] MEDS: FLUTICASONE/SALMETEROL 115-21 MCG INHALER 1 PUFF 2 PUFF INHALATION ×2 (09:37→20:47)
[2022-08-22] MEDS: PREGABALIN (*CRX) 50 MG CAPSULE 100 MG PO ×2 (09:53→16:44)
[2022-08-22] MEDS: MAGNESIUM SULF 2 GM/WATER 50ML 2 GM/50 ML BAG IVPB (09:53)
[2022-08-22] MEDS: polyethylene glycoL 3350 17 GM POWD.PACK PO (09:53)
[2022-08-22 12:09] LABS: Glucose Point of Care 166 mg/dl (65-105)
[2022-08-22] MEDS: BISACODYL 10 MG SUPPOSITORY RECTAL (14:24)
[2022-08-22] MEDS: SALINE 0.65% NAS SOLN 44 ML BTL 1 SPRAY NASAL (14:33)
[2022-08-22 16:43] LABS: Glucose Point of Care 148 mg/dl (65-105)
[2022-08-22] MEDS: CYCLOBENZAPRINE HCL 10 MG TABLET PO (16:51)
--- NOTE | 2022-08-22 17:23 | PM.IMPN ---
Progress Note: A&P Assessment and Plan (1) Pulmonary embolism: Qualifiers: Pulmonary embolism type: unspecified Chronicity: acute Acute cor pulmonale presence: without acute cor pulmonale Qualified Code(s): I26.99 - Other pulmonary embolism without acute cor pulmonale Code(s): I26.99 - Other pulmonary embolism without acute cor pulmonale Status: Acute Assessment and Plan: Patient with history of pulmonary embolism presented sinus tachycardia, hypoxia, and pleuritic CP. CTA deferred due to questionable contrast allergy therefore V/Q scan ordered for evaluation V/Q scan revealed high probability for pulmonary embolism with large wedge-shaped perfusion defect at the lingula, potentially both the superior and inferior segments, moderate-sized perfusion defect along the anterior segment of the right upper lobe and medial segment of the right middle lobe, and small perfusion defect along the lateral basilar segment of the left lower lobe with corresponding small airspace opacity at the lateral left lung base.? 08/18/22 started on Eliquis. 10 mg BID x 7 days then 5 mg BID Care coordination for neely check of Eliquis Echocardiogram without RV strain. normal LV systolic function and grade 2 diastolic dysfunction and BNP 112 08/21/22 spo2 93-96% 1 L NC. Day 4 of 7 Eliquis 10 mg BID. No s/s acute bleeding. Left-sided chest pain persists but reproducible. Cardiac markers negative. Echo without RV strain. 08/22/22 unchanged. Day 5/7 Eliquis 10 mg BID. Continue muscle relaxers and Prue tablets. He refuses lidoderm patch and heating pad for pain. (2) Left lower lobe pneumonia: Qualifiers: Pneumonia type: due to unspecified organism Qualified Code(s): J18.9 - Pneumonia, unspecified organism Code(s): J18.9 - Pneumonia, unspecified organism Status: Acute Assessment and Plan: The patient presented to the emergency department for evaluation of 3 days of nonradiating, left anterior pleuritic pain as well as a nonproductive cough. Chest x-ray shows left lower lobe pneumonia. Started on IV Levaquin 750 mg Q24 hours on 08/16/22 x 7 days, transition to 750 mg PO Q48 hours due to creatinine clearance with next dose 08/20/22 Sputum culture ordered, but not yet obtained. Legionella and pneumococcal urinary antigens pending. mycoplasma negative Supportive care to include bronchodilators, expectorants, incentive spirometry Covid and influenza negative Currently requiring 1 L supplemental O2. Wean as tolerated to keep spO2>92% Patient afebrile. WBC 13, patient with chronic leukocytosis? Monitor CBC 08/21/22 WBC 18 but afebrile without worsening respiratory status. Seems unlikely to be recurrent/persistent pneumonia. Sputum clear. 08/22 last dose of levaquin 08/22/22 antibiotics completed x 7 day course. No new respiratory complaints. (3) Acute on chronic kidney failure: Qualifiers: Acute renal failure type: with other specified pathological lesion Chronic kidney disease stage: stage 3 (moderate) Chronic kidney disease stage 3 subtype: stage 3a (GFR 45-59) Qualified Code(s): N17.8 - Other acute kidney failure; N18.31 - Chronic kidney disease, stage 3a Code(s): N17.9 - Acute kidney failure, unspecified; N18.9 - Chronic kidney disease, unspecified Status: Acute Assessment and Plan: Baseline creatinine appears to be 1.5-1.7. May be secondary to medications versus hypovolemia versus acute urinary retention 08/19/22 PVR 400 mL. straight cath x1, repeat bladder scan in 8 hours. Continue flomax BID. Consider reinsertion of velasquez catheter if still with acute retention. Renal ultrasound with normal kidneys and no evidence of hydronephrosis IV fluids normal saline 100 ml/hr started 08/18/22, stopped 08/20/22 Monitor renal function closely. Avoid nephrotoxic agents 08/20/22 urinary catheter inserted overnight. Continue tamsulosin. He has seen [facility] in the past and should
[2022-08-22] MEDS: PRAVASTATIN SODIUM 20 MG TABLET 40 MG PO (20:16)
[2022-08-22] MEDS: diazePAM (*CRX) 2 MG TABLET PO (20:17)
[2022-08-22] MEDS: MONTELUKAST SODIUM 10 MG TABLET PO (20:17)
[2022-08-22] MEDS: SENNA/DOCUSATE SODIUM TABLET 2 TAB PO (20:17)
[2022-08-22] MEDS: FENOFIBRATE 160 MG TABLET PO (20:17)
[2022-08-22] MEDS: ZOLPIDEM TARTRATE (*CRX) 5 MG TABLET 10 MG PO (20:20)
[2022-08-23] VITALS (7 sets, daily range): BP systolic 142–143; BP diastolic 58–75; PULSE 95–109; RESP 16–18; TEMP 35.5–36.8; O2SAT 94–96
[2022-08-23 00:15] LABS: Glucose Point of Care 89 mg/dl (65-105)
[2022-08-23] MEDS: HYDROcodone/acetaminophen (*CRX) 5-325 MG TABLET 1 TAB PO ×4 (01:00→15:41)
--- NOTE | 2022-08-23 01:19 | PC.NURSE ---
Daylight Savings Time For Daylight Savings Time Ending in the Fall - Clocks are moved back. For Daylight Savings Time Beginning in the Spring - Clocks are moved ahead. For [facility], the time of change occurs at 0200 hrs. Time is taken from the traffic observer. This entry on the patient's chart recognizes the change in time reflected during documentation. Example: 2 entries for vital signs may be charted for 0200 hrs.
[2022-08-23] MEDS: ERYTHROMYCIN OPHTH OINTMENT 1 GM TUBE 1 APPLIC EACH EYE ×4 (04:35→16:48)
[2022-08-23 07:57] LABS: Basophils Absolute Auto 0.1 K/mm3 (0.0-0.1); Basophils Percent Auto 0.8 % (0.2-1.2); Eosinophils Absolute Auto 0.9 K/mm3 (0-0.3); Eosinophils Percent Auto 5.3 % (0-4.4); Hematocrit 43.4 % (42.0-52.0); Hemoglobin 14.3 g/dL (14.0-18.0); Immature Granulocyte Absolute 0.14 K/mm3 (0.00-0.031); Immature Granulocyte Percent A 0.8 % (0-0.5); Lymphocytes Absolute Auto 3.01 K/mm3 (0.9-3.2); Lymphocytes Percent Auto 17.8 % (18.3-44.2); Mean Corpuscular HGB Conc 32.9 g/dl (32-36); Mean Corpuscular Hemoglobin 30.2 pg (26-34); Mean Corpuscular Volume 91.6 fl (80-100); Mean Platelet Volume 11.3 fl (7.4-10.4); Monocytes Absolute Auto 1.5 K/mm3 (0.1-0.6); Monocytes Percent Auto 9.1 % (2.6-8.5); Neutrophils Absolute Auto 11.2 K/mm3 (1.3-6.7); Neutrophils Percent Auto 66.2 % (45.5-73.1); Nucleated Red Blood Cells Perc 0.2 % (0.0-0.2); Platelet Count Result 562 k/mm3 (150-375); Red Blood Count 4.74 M/mm3 (4.6-6.20); Red Cell Distribution Width 14.6 % (11.5-14.5); White Blood Count 16.9 K/mm3 (4.5-10.0)
[2022-08-23 08:06] LABS: Glucose Point of Care 134 mg/dl (65-105)
[2022-08-23 08:09] LABS: Alanine Aminotransferase 17 U/L (6-50); Albumin Level 3.8 g/dL (3.5-5.1); Alkaline Phosphatase 62 U/L (38-126); Anion Gap 11 mmol/L (8-16); Aspartate Amino Transferase 27 U/L (17-59); Bilirubin,Total 0.5 mg/dL (0.2-1.3); Blood Urea Nitrogen 35 mg/dL (9-20); Calcium 9.1 mg/dL (8.4-10.2); Carbon Dioxide 24 mmol/L (22-30); Chloride 102 mmol/L (98-107); Estimated CRCL calculation 50 ml/min; Estimated Glomerular Filt Rate 44; Glucose 121 mg/dL (65-110); Magnesium 2.1 mg/dL (1.6-2.3); Potassium 3.9 mmol/L (3.4-5.0); Sodium 137 mmol/L (137-145)
[2022-08-23] MEDS: INSULIN GLARGINE (*BKC) 100 UNITS/ML 32 UNITS SUB-Q (08:25)
[2022-08-23] MEDS: INSULIN ASPART (*BKC) 100 UNITS/ML 12 UNITS SUB-Q ×3 (08:25→16:48)
[2022-08-23] MEDS: FLUTICASONE/SALMETEROL 115-21 MCG INHALER 1 PUFF 2 PUFF INHALATION (09:07)
[2022-08-23] MEDS: allopurinoL 100 MG TABLET PO (09:36)
[2022-08-23] MEDS: CYCLOBENZAPRINE HCL 5 MG TABLET PO (09:36)
[2022-08-23] MEDS: MAGNESIUM OXIDE 400 MG TABLET PO ×2 (09:36→16:49)
[2022-08-23] MEDS: PREGABALIN (*CRX) 50 MG CAPSULE 100 MG PO ×2 (09:36→16:50)
[2022-08-23] MEDS: ERGOCALCIFEROL 50,000 UNITS CAPSULE 50000 UNITS PO (09:36)
[2022-08-23] MEDS: VENLAFAXINE HCL 37.5 MG TABLET PO ×2 (09:37→16:49)
[2022-08-23] MEDS: ASPIRIN 81 MG ENTERIC TABLET PO (09:37)
[2022-08-23] MEDS: LIDOCAINE 5% PATCH 1 PATCH TRANSDERM (09:37)
[2022-08-23] MEDS: TAMSULOSIN HCL 0.4 MG CAPSULE PO ×2 (09:37→16:48)
[2022-08-23] MEDS: APIXABAN 5 MG TABLET 10 MG PO (09:37)
[2022-08-23] MEDS: BENZONATATE 100 MG CAPSULE PO ×3 (09:37→16:48)
[2022-08-23] MEDS: polyethylene glycoL 3350 17 GM POWD.PACK PO (09:40)
[2022-08-23] MEDS: SALINE 0.65% NAS SOLN 44 ML BTL 1 SPRAY NASAL (09:47)
[2022-08-23] MEDS: METOPROLOL SUCCINATE EXT REL 25 MG TABCR PO (10:33)
[2022-08-23] MEDS: FINASTERIDE 5 MG TABLET PO (10:34)
[2022-08-23] MEDS: POTASSIUM CHLORIDE 20 MEQ TABLET 40 MEQ PO (10:36)
[2022-08-23] MEDS: FUROSEMIDE INJ 40 MG/4 ML VIAL IV PUSH (10:37)
[2022-08-23 11:48] LABS: Glucose Point of Care 242 mg/dl (65-105)
[2022-08-23] MEDS: INSULIN ASPART (*BKC) 100 UNITS/ML SUB-Q (11:53)
[2022-08-23 13:00] LABS: EDCOVIDSCREEN Negative (Negative)
--- NOTE | 2022-08-23 13:33 | PM.DS ---
DS: Admitting Diagnosis Discharge Date 08/23/22 1333 Admitting Diagnosis Left lower lobe pneumonia Chronic kidney disease Insulin dependent diabetes mellitus Frequent falls DS: Discharge Diagnosis Discharge Diagnosis (1) Pulmonary embolism: Qualifiers: Acute cor pulmonale presence: without acute cor pulmonale Chronicity: acute Pulmonary embolism type: unspecified Qualified Code(s): I26.99 - Other pulmonary embolism without acute cor pulmonale Code(s): I26.99 - Other pulmonary embolism without acute cor pulmonale Status: Acute (2) Left lower lobe pneumonia: Qualifiers: Pneumonia type: due to unspecified organism Qualified Code(s): J18.9 - Pneumonia, unspecified organism Code(s): J18.9 - Pneumonia, unspecified organism Status: Acute (3) Acute on chronic kidney failure: Qualifiers: Acute renal failure type: with other specified pathological lesion Chronic kidney disease stage: stage 3 (moderate) Chronic kidney disease stage 3 subtype: stage 3a (GFR 45-59) Qualified Code(s): N17.8 - Other acute kidney failure; N18.31 - Chronic kidney disease, stage 3a Code(s): N17.9 - Acute kidney failure, unspecified; N18.9 - Chronic kidney disease, unspecified Status: Acute (4) Insulin dependent diabetes mellitus: Status: Chronic (5) Frequent falls: Code(s): R29.6 - Repeated falls Status: Acute (6) Hypomagnesemia: Code(s): E83.42 - Hypomagnesemia Status: Acute (7) Hyponatremia: Code(s): E87.1 - Hypo-osmolality and hyponatremia Status: Acute (8) Benzodiazepine dependence: Code(s): F13.20 - Sedative, hypnotic or anxiolytic dependence, uncomplicated Status: Acute (9) Premature ventricular contraction: Code(s): I49.3 - Ventricular premature depolarization Status: Acute (10) Chest pain: Qualifiers: Chest pain type: chest pain on breathing Qualified Code(s): R07.1 - Chest pain on breathing Code(s): R07.9 - Chest pain, unspecified Status: Acute (11) Constipation by delayed colonic transit: Code(s): K59.01 - Slow transit constipation Status: Acute (12) BPH (benign prostatic hyperplasia): Qualifiers: Lower urinary tract symptom presence: unspecified whether lower urinary tract symptoms present Qualified Code(s): N40.0 - Benign prostatic hyperplasia without lower urinary tract symptoms Code(s): N40.0 - Benign prostatic hyperplasia without lower urinary tract symptoms Status: Chronic (13) Left rib fracture: Code(s): S22.32XA - Fracture of one rib, left side, initial encounter for closed fracture Status: Acute DS: Summary Hospital Course Reason for hospitalization: chest pain, cough, shortness of breath Hospital Course: Jeremías Gaines is a 62-year-old male with multiple medical problems including prior stroke with LUE weakness, insulin dependent diabetes, hypertension, history of pulmonary embolism, myelofibrosis status post splenectomy, and chronic kidney disease. He presented to the emergency department via EMS from home for evaluation of chest pain, shortness a breath, and cough since Wednesday. He described a sharp and shooting, non-radiating pain in the left anterior chest over the lower ribs which has been constant since the outset and worse with deep inspiration cough. He has also been feeling mildly short of breath and he has a non-productive cough. He c/o sinus congestion but also endorses issues with chronic rhinosinusitis. At home he has been taking Mucinex and aspirin for the pain but unfortunately his symptoms continued prompting his visit to the ER, as he assumed that he probably had pneumonia. Chest x-ray showed evidence of left lower lobe pneumonia. He denied recent travel and sick contacts. No dysphagia or concerns for aspiration.? He has not had fever, chills, or sweats.? His appetite has been good with no
[2022-08-23 16:50] LABS: Glucose Point of Care 137 mg/dl (65-105)
== END 2022-08-23 17:35 | DRG 175 ==
LOC: ANHED 10:11 → ANH3MEDSUR 13:39
PROVIDERS: Internal Medicine; Physician Assistant; Admitting Provider Student in an Organized Health Care Education/Training Program; Emergency Provider Emergency Medicine; PCP Internal Medicine; Visit Provider Nurse Practitioner Family
DX: I26.99 Other pulmonary embolism without acute cor pulmonale (principal); J18.9 Pneumonia, unspecified organism; S22.42XA Multiple fractures of ribs, left side, initial encounter for closed fracture; D75.81 Myelofibrosis; J44.0 Chronic obstructive pulmonary disease with (acute) lower respiratory infection; E87.1 Hypo-osmolality and hyponatremia; N17.8 Other acute kidney failure; F13.239 Sedative, hypnotic or anxiolytic dependence with withdrawal, unspecified; R07.1 Chest pain on breathing; Z20.822 Contact with and (suspected) exposure to COVID-19; G47.33 Obstructive sleep apnea (adult) (pediatric); N40.0 Benign prostatic hyperplasia without lower urinary tract symptoms; E11.22 Type 2 diabetes mellitus with diabetic chronic kidney disease; N18.31 Chronic kidney disease, stage 3a; E11.40 Type 2 diabetes mellitus with diabetic neuropathy, unspecified; R29.6 Repeated falls; I51.89 Other ill-defined heart diseases; H10.9 Unspecified conjunctivitis; I49.3 Ventricular premature depolarization; K59.01 Slow transit constipation; E83.42 Hypomagnesemia; Z79.4 Long term (current) use of insulin; Z79.82 Long term (current) use of aspirin; Z79.84 Long term (current) use of oral hypoglycemic drugs; Z86.73 Personal history of transient ischemic attack (TIA), and cerebral infarction without residual deficits; Z86.711 Personal history of pulmonary embolism; Z87.891 Personal history of nicotine dependence; Z89.431 Acquired absence of right foot; Z90.81 Acquired absence of spleen
CPT/HCPCS: 36415; 71045; 71046; 76775; 78580; 80048; 80053; 81001; 82553; 82570; 82948; 83036; 83735; 83880; 84100; 84295; 84300; 84443; 84484; 85025; 85027; 85610; 85730; 86738; 87040; 87070; 87086; 87205; 87426; 87449; 87502; 87899; 93005; 94640; 96361; 96365; 96366; 96372; 96374; 96375; 97110; 97116; 97161; 97166; 97530; 97535; 99285; A9270; A9540; C8929; C9803; G0378; J1650; J1815; J1940; J1956; J2270; J3360; J3475; J7030; Q9957; U0003; U0005

== ENCOUNTER 2022-08-26 05:55 | Observation (INO) | payer MEDICARE, SELFPAY ==
[2022-08-26] VITALS (29 sets, daily range): BP systolic 131–159; BP diastolic 60–108; PULSE 53–114; RESP 11–22; TEMP 35.7–36.7; O2SAT 96–100; BMI 35.4; BMI 32.5
--- NOTE | ~2022-08-26 | CT_ITS ---
EXAMINATION: CT diagnostic chest wo con DATE: 08/26/2022 15:08 INDICATION: Shortness of breath TECHNIQUE: Computed tomography (CT) of the chest was performed without intravenous contrast. The dose -length product (DLP) was 526.56 mGy-cm. Automated exposure control and iterative reconstruction tech nique were employed. COMPARISON: None FINDINGS: There is a small left pleural effusion with associated dependent atelectasis. There is mild dependent atelectasis of the right lung. There is a possible 12 mm x 7 mm right perihilar upper lobe nodule on image 48. There is no pneumothorax. Calcified pulmonary nodules and calcified right paratr acheal lymph nodes are consistent with old granulomatous disease. No pathologically enlarged thoracic lymph nodes are identified. The heart size is normal. There is severe thoracic spondylosis. There is a 5.1 cm mass of the left adrenal gland containing macroscopic fat, consistent with a myelolipoma. IMPRESSION: 1. Small left pleural effusion with mild dependent atelectasis of the lungs. 2. Possible right perihilar upper lobe nodule. Follow-up low-dose CT in three months is recommended. Reviewed, dictated and finalized at location B. NDARY SOCIAL STUDIES TEACHER IMPRESSION: 1. Small left pleural effusion with mild dependent atelectasis of the lungs. 2. Possible right perihilar upper lobe nodule. Follow-up low-dose CT in [facility] is recommended.
--- NOTE | ~2022-08-26 | XR_ITS ---
EXAMINATION: XR chest 1V portable DATE: 08/26/2022 06:21 INDICATION: Chest pain and shortness of breath TECHNIQUE: frontal view of the chest was obtained. COMPARISON: Chest radiograph dated 08/23/2022 FINDINGS: Increased interstitial pattern in the bilateral mid and lower lung zones consistent with mild pulmona ry edema. No pleural effusion or pneumothorax. The cardiomediastinal silhouette is normal. Old left-s ided rib fractures. IMPRESSION: 1. Mild increased interstitial pattern in the bilateral mid and lower lung zones ingesting mild pulmo nary edema versus less likely pneumonia. Reviewed, dictated and finalized at location A. RUCTIONAL DESIGN CONSULTANT IMPRESSION: 1. Mild increased interstitial pattern in the bilateral mid and lower lung zone s ingesting mild pulmonary edema versus less likely pneumonia.
--- NOTE | 2022-08-26 05:45 | ECG_ITS ---
Measurements Intervals [place] Rate: 110 P: 2 IA: 130 QRS: 16 QRSD: 90 T: 77 QT: 322 QTc: 436 Interpretive Statements SINUS TACHYCARDIA FREQUENT VENTRICULAR PREMATURE COMPLEXES BORDERLINE ST-T WAVE ABNORMALITY- HIGH LATERAL LEADS BASELINE ARTIFACT- I, II, III, AVR, AVL, AVF, V1-V6 ABNORMAL ECG COMPARED TO ECG 08/19/2022 10:48:31 NO SIGNIFICANT CHANGES Electronically Signed On 08-26-2022 15:48:30 CLINIC MD ASSOCIATE by Phillip Rodriguez D.O.
[2022-08-26 06:02] LABS: Basophils Absolute Auto 0.1 K/mm3 (0.0-0.1); Basophils Percent Auto 0.6 % (0.2-1.2); Eosinophils Absolute Auto 0.8 K/mm3 (0-0.3); Eosinophils Percent Auto 4.6 % (0-4.4); Hematocrit 43.4 % (42.0-52.0); Hemoglobin 14.6 g/dL (14.0-18.0); Immature Granulocyte Absolute 0.15 K/mm3 (0.00-0.031); Immature Granulocyte Percent A 0.9 % (0-0.5); Lymphocytes Absolute Auto 2.57 K/mm3 (0.9-3.2); Lymphocytes Percent Auto 15.1 % (18.3-44.2); Mean Corpuscular HGB Conc 33.6 g/dl (32-36); Mean Corpuscular Hemoglobin 31.1 pg (26-34); Mean Corpuscular Volume 92.5 fl (80-100); Mean Platelet Volume 10.7 fl (7.4-10.4); Monocytes Absolute Auto 1.4 K/mm3 (0.1-0.6); Neutrophils Absolute Auto 12.1 K/mm3 (1.3-6.7); Neutrophils Percent Auto 70.8 % (45.5-73.1); Nucleated Red Blood Cells Perc 0.1 % (0.0-0.2); Platelet Count Result 613 k/mm3 (150-375); Red Blood Count 4.69 M/mm3 (4.6-6.20); Red Cell Distribution Width 14.9 % (11.5-14.5); White Blood Count 17.1 K/mm3 (4.5-10.0)
[2022-08-26 06:13] LABS: INR 1.4; Prothrombin Time 16.2 Seconds (11.1-14.7)
[2022-08-26 06:15] LABS: Partial Thromboplastin Time 43.7 SECONDS (22.3-36.8)
[2022-08-26] MEDS: MORPHINE SULFATE (*CRX) 4 MG/ML INJ IV PUSH (06:24)
--- NOTE | 2022-08-26 06:29 | PC.NURSE ---
pt. repeatedly asking for a catheter. pt. states I cannot urinate without water. RN educated pt. that his kidneys are always making urine and pt. does not need water to urinate. RN bladder scanned pt. and pt. has over 360 ml. RN educated pt. he can urinate when he as the urge to void.
--- NOTE | 2022-08-26 06:43 | ED.CHESTPAIN ---
HPI - Chest Pain General Chief Complaint: Chest Pain <Shawn Canales MD - Last Filed: 08/27/22 19:33> Stated Complaint: CHEST PAIN <Shawn Canales MD - Last Filed: 08/27/22 19:33> History of Present Illness HPI narrative: Patient is a 62-year-old male who presents ER with complaints of chest pain shortness of breath. Patient recently hospitalized on 08/16/2022. He was diagnosed with pneumonia. It is also discovered during his treatment that he had several rib fractures and had also developed pulmonary emboli. He is currently anticoagulated on Xarelto. He is finished his antibiotics. He is now dependent on 3 L of oxygen. Reports pain increase and I the left side where he has his typical pain. He has no increase in his oxygen consumption. Denies fevers or chills. Patient cannot describe modifying factors for dyspnea. <Shawn Canales MD - Last Filed: 08/27/22 19:33> Related Data Home Medications: Home Medications Medication Instructions Recorded Confirmed budesonide-formoterol HFA 160 2 puff inhalation Q12H 11/08/20 08/26/22 mcg-4.5 mcg/actuation aerosol inhaler (Symbicort) cholecalciferol (vitamin D3) 1,250 1,250 mcg PO WEEKLY 11/08/20 08/26/22 mcg (50,000 unit) capsule finasteride 5 mg tablet 5 mg PO DAILY 11/08/20 08/26/22 montelukast 10 mg tablet 10 mg PO HS 11/08/20 08/26/22 cyclobenzaprine 10 mg tablet 10 mg PO Q8H PRN Muscle Spasm 04/11/21 08/26/22 venlafaxine 37.5 mg tablet 37.5 mg PO Q12H 04/11/21 08/26/22 zolpidem 10 mg tablet 10 mg PO HS 04/11/21 08/26/22 pregabalin 100 mg capsule (Lyrica) 100 mg PO Q12H 07/17/22 08/26/22 olopatadine 0.1 % eye drops 1 drp EACH EYE BID PRN Allergy 08/16/22 08/26/22 Symptoms tamsulosin 0.4 mg capsule 0.4 mg PO Q12H 08/16/22 08/26/22 benzonatate 100 mg capsule 100 mg PO TID 08/26/22 08/26/22 bisacodyl 10 mg rectal suppository 10 mg RECTAL DAILY PRN Constipation 08/26/22 08/26/22 diazepam 2 mg tablet 1 mg PO Q12H PRN Anxiety 08/26/22 08/26/22 dulaglutide 0.75 mg/0.5 mL 0.75 mg subcut WEEKLY 08/26/22 08/26/22 subcutaneous pen injector fenofibrate micronized 200 mg 200 mg PO HS 08/26/22 08/26/22 capsule glucagon 1 mg solution for 1 mg subcut Q20M PRN Hypoglycemia 08/26/22 08/26/22 injection (Glucagon Emergency Kit) hydrocodone 5 mg-acetaminophen 325 1 tablet PO Q4H PRN Pain 08/26/22 08/26/22 mg tablet insulin glargine 100 unit/mL (3 40 unit subcut HS 08/26/22 08/26/22 mL) subcutaneous pen (Lantus Solostar U-100 Insulin) insulin lispro 100 unit/mL 12 unit subcut TIDWM 08/26/22 08/26/22 subcutaneous pen (Humalog KwikPen (U-100) Insulin) magnesium citrate (Citroma oral 300 ml PO DAILY PRN Constipation 08/26/22 08/26/22 solution) magnesium hydroxide 400 mg/5 mL 30 ml PO HS PRN Constipation 08/26/22 08/26/22 oral suspension (Milk of Magnesia) magnesium oxide 400 mg (241.3 mg 400 mg PO BID 08/26/22 08/26/22 magnesium) tablet pravastatin 40 mg tablet 40 mg PO HS 08/26/22 08/26/22 sodium chloride 0.65 % nasal spray 2 spray intranasal Q6HR PRN 08/26/22 08/26/22 aerosol (Saline Mist) Congestion sodium phosphates 19 gram-7 118 ml RECTAL ONCE PRN Constipation 08/26/22 08/26/22 gram/118 mL enema (Fleet Enema) <Shawn Canales MD - Last Filed: 08/27/22 19:33> Allergies/Adverse Reactions: Allergies Allergy/AdvReac Type Severity Reaction Status Date / Time naproxen Allergy Intermediate SWELLING Verified 08/26/22 05:45 iohexol Allergy Unknown Verified 08/26/22 05:45 [From contrast - CT, X-RAY] <Shawn Canales MD - Last Filed: 08/27/22 19:33> Review of Systems Review of Systems: All systems reviewed & are unremarkable except as noted in HPI and below <Shawn Canales MD - Last Filed: 08/27/22 19:33> Constitutional: Constitutional: Denies chills, Denies fatigue and Denies fever(s) <Shawn Canales MD - Last Filed: 08/27/22 19:33> ENT: Denies nasal congestion and Denies sore throat <[place]
[2022-08-26 07:08] LABS: Alanine Aminotransferase 16 U/L (6-50); Albumin Level 3.8 g/dL (3.5-5.1); Alkaline Phosphatase 77 U/L (38-126); Anion Gap 8 mmol/L (8-16); Aspartate Amino Transferase 35 U/L (17-59); Bilirubin,Total 0.7 mg/dL (0.2-1.3); Blood Urea Nitrogen 18 mg/dL (9-20); Calcium 8.9 mg/dL (8.4-10.2); Carbon Dioxide 25 mmol/L (22-30); Chloride 103 mmol/L (98-107); Estimated Glomerular Filt Rate > 60; Glucose 163 mg/dL (65-110); Lipase 73 U/L (23-300); Potassium 4.3 mmol/L (3.4-5.0); Sodium 136 mmol/L (137-145)
[2022-08-26 07:17] LABS: Troponin I 0.014 ng/mL (0.000-0.034)
[2022-08-26 07:38] LABS: NT Pro B Type Natriuretic Pept 554 pg/mL (5-100)
[2022-08-26 08:22] LABS: Influenza A QL RT-PCR Negative (Negative); Influenza B QL RT-PCR Negative (Negative); RSV RNA, RT-PCR Negative (Negative); SARS-CoV-2 RNA PCR Negative
[2022-08-26] MEDS: FUROSEMIDE INJ 40 MG/4 ML VIAL IV PUSH (09:01)
--- NOTE | 2022-08-26 09:40 | ADMGEN ---
This patient, Jeremías Gaines, was admitted to IMU Room 209-01. Patient/family oriented to hospital policies and general routines including ID bracelet, bed and alarms, visiting hours, pain management, procedures, bathroom and other care routines, personal items, smoking policy, room service/diet, and visiting hours. Information on how to activate the Rapid Response Team has been discussed. Patient/Family are encouraged to report perceived risks to care and to ask questions if they do not understand what they are told or what they should do.
[2022-08-26 10:50] LABS: Troponin I 0.013 ng/mL (0.000-0.034)
[2022-08-26 11:44] LABS: Glucose Point of Care 154 mg/dl (65-105)
[2022-08-26 13:49] LABS: Troponin I < 0.012 ng/mL (0.000-0.034)
--- NOTE | 2022-08-26 14:05 | PM.IMHP ---
H&P: HPI History of Present Illness Date/Time: 08/26/22 14:05 Chief Complaint: Shortness of breath Narrative: this is a 62-year-old male recently discharged from the hospital presented with complaint of shortness of breath. He was discharged on 08/16/2022. He Had fallen and sustained rib fracture and also developed PE and pneumonia. He was sent to [facility]. He has been having increased shortness of breath since the discharge with reported lower extremity swelling. He has been on 3 L oxygen via nasal cannula. He also reports left-sided chest pain where his rib fractures at been.? Review of Systems Review of Systems: - CONSTITUTIONAL: Denies weight loss, fever and chills. - HEENT: Denies changes in vision and hearing - RESPIRATORY: reports SOB and cough. - CV: Denies palpitations and reports left-sided CP. - GI: Denies abdominal pain, nausea, vomiting and diarrhea. - : Denies dysuria and urinary frequency. - MSK: Denies myalgia and joint pain. - SKIN: Denies rash and pruritus. - NEUROLOGICAL: Denies headache and syncope. - PSYCHIATRIC: Denies recent changes in mood. Denies anxiety and depression. [facility] Past Medical History Medical History (Updated 08/26/22 @ 14:13 by Russ Cash MD) Anemia Anxiety Benign prostatic hyperplasia Cerebrovascular accident (2014) Chronic kidney disease Claustrophobia Depression Diastolic dysfunction Enterobacter sepsis Secondary to UTI. 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 Smoking status: Never smoker Tobacco type: cigars Smoking end date: 10/18/94 Alcohol intake: never Alcohol use details: 1/month Substance use: never Substance use type: marijuana Lack of Transportation: No Lack of Food: Never True Current Housing: I Have Housing Concerned About Future Housing: No Difficulty Paying Gas/Electric Bills: No Difficulty Paying for Meds: No Currently Unemployed: No Education: Bachelor's Degree Difficulty w/ Childcare or Family Care: No Additional living arrangements comments: The patient lives with his girlfriend. Additional occupation/education comments: On disability. Spiritual care concerns: No Agree to blood products: Yes Meds Home Medications and Allergies Home Medications Medication Instructions Recorded Confirmed Type budesonide-formoterol HFA 160 2 puff inhalation Q12H 11/08/20 08/26/22 History mcg-4.5 mcg/actuation aerosol inhaler (Symbicort) cholecalciferol (vitamin D3) 1,250 1,250 mcg PO WEEKLY 11/08/20 08/26/22 History mcg (50,000 unit) capsule finasteride 5 mg tablet 5 mg PO DAILY 11/08/20 08/26/22 History montelukast 10 mg tablet 10 mg PO HS 11/08/20 08/26/22 History cyclobenzaprine 10 mg tablet 10 mg PO Q8H PRN Muscle Spasm 04/11/21 08/26/22 History venlafaxine 37.5 mg tablet 37.5 mg PO Q12H 04/11/21 08/26/22 History zolpidem 10 mg tablet 10 mg PO HS 04/11/21 08/26/22 History pregabalin 100 mg capsule (Lyrica) 100 mg PO Q12H 07/17/22 08/26/22 History
[2022-08-26] MEDS: HYDROcodone/acetaminophen (*CRX) 5-325 MG TABLET 1 TAB PO ×2 (15:31→21:49)
--- NOTE | 2022-08-26 16:27 | PC.NURSE ---
On 08/26/22, the student, Michelle [facility], provided care and completed [facility] documentation on this patient. I have reviewed the student's documentation and agree with the findings.
[2022-08-26 16:40] LABS: Glucose Point of Care 196 mg/dl (65-105)
[2022-08-26] MEDS: MAGNESIUM OXIDE 400 MG TABLET PO (17:25)
[2022-08-26] MEDS: BENZONATATE 100 MG CAPSULE PO (17:25)
[2022-08-26] MEDS: INSULIN ASPART (*BKC) 100 UNITS/ML 12 UNITS SUB-Q (17:26)
[2022-08-26] MEDS: FLUTICASONE/SALMETEROL 115-21 MCG INHALER 1 PUFF 2 PUFF INHALATION (20:50)
[2022-08-26 21:18] LABS: Glucose Point of Care 142 mg/dl (65-105)
[2022-08-26] MEDS: INSULIN GLARGINE (*BKC) 100 UNITS/ML 40 UNITS SUB-Q (21:33)
[2022-08-26] MEDS: TAMSULOSIN HCL 0.4 MG CAPSULE PO (21:40)
[2022-08-26] MEDS: SENNA/DOCUSATE SODIUM TABLET 2 TAB PO (21:40)
[2022-08-26] MEDS: METOPROLOL SUCCINATE EXT REL 25 MG TABCR PO (21:40)
[2022-08-26] MEDS: MONTELUKAST SODIUM 10 MG TABLET PO (21:40)
[2022-08-26] MEDS: FENOFIBRATE 160 MG TABLET PO (21:40)
[2022-08-26] MEDS: PREGABALIN (*CRX) 50 MG CAPSULE 100 MG PO (21:40)
[2022-08-26] MEDS: APIXABAN 5 MG TABLET PO (21:40)
[2022-08-26] MEDS: diazePAM (*CRX) 2 MG TABLET PO (21:40)
[2022-08-26] MEDS: VENLAFAXINE HCL 37.5 MG TABLET PO (21:44)
[2022-08-26] MEDS: ZOLPIDEM TARTRATE (*CRX) 5 MG TABLET 10 MG PO (21:49)
[2022-08-27] VITALS (20 sets, daily range): BP systolic 113–145; BP diastolic 56–82; PULSE 88–111; RESP 18–22; TEMP 35.8–36.4; O2SAT 95–100
[2022-08-27] MEDS: PRAVASTATIN SODIUM 20 MG TABLET 40 MG PO ×2 (01:18→20:54)
[2022-08-27] MEDS: HYDROcodone/acetaminophen (*CRX) 5-325 MG TABLET 1 TAB PO ×2 (05:47→21:04)
[2022-08-27] MEDS: FLUTICASONE/SALMETEROL 115-21 MCG INHALER 1 PUFF 2 PUFF INHALATION ×2 (08:08→18:55)
[2022-08-27 08:15] LABS: Glucose Point of Care 113 mg/dl (65-105)
--- NOTE | 2022-08-27 09:00 | PC.NURSE ---
Morning medication reviewed with pt. Refused multiple meds. Reports no longer taking meds for BPH. Refuses lasix, takes prn diuretic prior to coming to facility. Dr. Gomez aware. Please see MAR.
[2022-08-27] MEDS: VENLAFAXINE HCL 37.5 MG TABLET PO ×2 (09:36→20:54)
[2022-08-27] MEDS: PREGABALIN (*CRX) 50 MG CAPSULE 100 MG PO ×2 (09:36→20:52)
[2022-08-27] MEDS: LIDOCAINE 5% PATCH 1 PATCH TRANSDERM (09:37)
[2022-08-27] MEDS: METOPROLOL SUCCINATE EXT REL 25 MG TABCR PO ×2 (09:37→20:53)
[2022-08-27] MEDS: MAGNESIUM OXIDE 400 MG TABLET PO ×2 (09:37→16:30)
[2022-08-27] MEDS: BENZONATATE 100 MG CAPSULE PO ×3 (09:38→16:30)
[2022-08-27 11:53] LABS: Glucose Point of Care 236 mg/dl (65-105)
[2022-08-27] MEDS: INSULIN ASPART (*BKC) 100 UNITS/ML SUB-Q ×2 (12:39→17:49)
[2022-08-27] MEDS: LIDOCAINE 5% PATCH 2 PATCH TRANSDERM (16:29)
--- NOTE | 2022-08-27 17:53 | PM.IMPN ---
Progress Note: A&P Assessment and Plan (1) Hypoxia: Code(s): R09.02 - Hypoxemia Status: Acute Assessment and Plan: 08/27/2022 interval history: patient is 62 y/o male s/p fall ribs fracture, patient main concern is pain in his left chest from rib fracture there is a Lidoderm patch is not helping with the pain will increase 3 Lidoderm patch along the ribcage to help with the pain, also added [place] to help with the pain and will have PT OT evaluate the patient and further recommendation to follow. (2) Chest pain: Qualifiers: Chest pain type: chest pain on breathing Qualified Code(s): R07.1 - Chest pain on breathing Code(s): R07.9 - Chest pain, unspecified Status: Acute Assessment and Plan: most like the chest pain from rib fracture, 3 sets of cardiac enzymes are negative there are no acute changes on EKG, will continue to monitor (3) Insulin dependent diabetes mellitus: Status: Chronic Assessment and Plan: will continue home regimen and monitor (4) History of CVA (cerebrovascular accident): Code(s): Z86.73 - Personal history of transient ischemic attack (TIA), and cerebral infarction without residual deficits Status: Chronic Assessment and Plan: will have PT OT evaluate the patient (5) Congestive heart failure: Code(s): I50.9 - Heart failure, unspecified Status: Acute Assessment and Plan: patient being diuresed (6) Pulmonary embolism: Qualifiers: Acute cor pulmonale presence: without acute cor pulmonale Chronicity: acute Pulmonary embolism type: unspecified Qualified Code(s): I26.99 - Other pulmonary embolism without acute cor pulmonale Code(s): I26.99 - Other pulmonary embolism without acute cor pulmonale Status: Acute Assessment and Plan: there is a concern for pulmonary emboli patient is anticoagulated with Eliquis (7) COPD (chronic obstructive pulmonary disease): Code(s): J44.9 - Chronic obstructive pulmonary disease, unspecified Status: Acute Assessment and Plan: will continue bronchodilator Plan # shortness of breath worsening # left-sided chest pain: Related to recent rib fractures troponin serial is negative # acute on chronic hypoxic respiratory failure oxygen requirement increased. Chest x-ray with mild pulmonary edema. BNP elevated at 554. Used to be 0s last admission. Received 40 mg of IV Lasix in the ER. Will continue 40 mg IV daily. Recent admission with acute on chronic renal failure treated with IV fluids. Echo recently done with normal LV systolic function but with grade 2 diastolic dysfunction. # history of PE in the past with recent V/Q scan positive for pulmonary embolism high probability with large ways shape id perfusion defect at the lingula potentially both ER superior and inferior segments moderate size perfusion defect along the anterior segment of right upper lobe and medial segment of the right middle lobe and small perfusion defect along the lateral basilar segment of the left lower lobe with corresponding small airspace opacity at the lateral left lung base. Was started on Eliquis which will be continued this admission. med rec that he came in with does not have Eliquis. Nursing reports that he has not been getting his Eliquis at the facility. Will resume Eliquis here and try to do CTA however had dye allergy. Will proceed with CTA chest today and follow the clinical course to see if he needs CTA to further evaluate # recent pneumonia completed treatment. Will get sputum culture WBC count still elevated [address] get [address] chest to further evaluate # recent ERIC creatinine normal today will continue to monitor # insulin-dependent diabetes mellitus: Resume home medication # frequent falls: Likely secondary to neuropathy and/or orthostatic hypotension # anxiety disorder on benzodiazepine # PVCs: On beta-dana # BPH: On Flomax #
[2022-08-27 20:19] LABS: Glucose Point of Care 278 mg/dl (65-105)
[2022-08-27] MEDS: ZOLPIDEM TARTRATE (*CRX) 5 MG TABLET 10 MG PO (20:51)
[2022-08-27] MEDS: diazePAM (*CRX) 2 MG TABLET PO (20:52)
[2022-08-27] MEDS: APIXABAN 5 MG TABLET PO (20:52)
[2022-08-27] MEDS: MONTELUKAST SODIUM 10 MG TABLET PO (20:52)
[2022-08-27] MEDS: SENNA/DOCUSATE SODIUM TABLET 2 TAB PO (20:52)
[2022-08-27] MEDS: FENOFIBRATE 160 MG TABLET PO (20:53)
[2022-08-27] MEDS: INSULIN GLARGINE (*BKC) 100 UNITS/ML 40 UNITS SUB-Q (20:56)
[2022-08-28] VITALS (17 sets, daily range): BP systolic 100–133; BP diastolic 59–81; PULSE 52–102; RESP 16–20; TEMP 36.1–36.4; O2SAT 86–100
[2022-08-28 07:45] LABS: Glucose Point of Care 228 mg/dl (65-105)
[2022-08-28 07:59] LABS: Glucose Point of Care 129 mg/dl (65-105)
[2022-08-28] MEDS: LIDOCAINE 5% PATCH 3 PATCH TRANSDERM (08:18)
[2022-08-28] MEDS: VENLAFAXINE HCL 37.5 MG TABLET PO (08:19)
[2022-08-28] MEDS: MAGNESIUM OXIDE 400 MG TABLET PO ×2 (08:20→16:52)
[2022-08-28] MEDS: PREGABALIN (*CRX) 50 MG CAPSULE 100 MG PO (08:20)
[2022-08-28] MEDS: METOPROLOL SUCCINATE EXT REL 25 MG TABCR PO (08:20)
[2022-08-28] MEDS: FUROSEMIDE INJ 40 MG/4 ML VIAL IV PUSH (08:21)
[2022-08-28] MEDS: BENZONATATE 100 MG CAPSULE PO ×3 (08:21→16:52)
[2022-08-28] MEDS: APIXABAN 5 MG TABLET PO (08:21)
[2022-08-28] MEDS: FLUTICASONE/SALMETEROL 115-21 MCG INHALER 1 PUFF 2 PUFF INHALATION (08:50)
[2022-08-28 11:39] LABS: Glucose Point of Care 290 mg/dl (65-105)
[2022-08-28] MEDS: INSULIN ASPART (*BKC) 100 UNITS/ML SUB-Q ×2 (12:20→16:50)
--- NOTE | 2022-08-28 12:50 | PCRCNOTE ---
PT DISCHARGING TO SNF, HOME O2 EVAL IS NOT NEEDED, THE [facility] STAFF CAN TITRATE O2 NEEDED AT FACILITY.
--- NOTE | 2022-08-28 15:57 | PM.DS ---
DS: Admitting Diagnosis Discharge Date 08/28/2022 Admitting Diagnosis shortness of breath DS: Discharge Diagnosis Discharge Diagnosis (1) Hypoxia: Code(s): R09.02 - Hypoxemia Status: Acute Assessment and Plan: 08/27/2022 interval history: patient is 62 y/o male s/p fall ribs fracture, patient main concern is pain in his left chest from rib fracture there is a Lidoderm patch is not helping with the pain will increase 3 Lidoderm patch along the ribcage to help with the pain, also added [place] to help with the pain and will have PT OT evaluate the patient and further recommendation to follow. (2) Chest pain: Qualifiers: Chest pain type: chest pain on breathing Qualified Code(s): R07.1 - Chest pain on breathing Code(s): R07.9 - Chest pain, unspecified Status: Acute Assessment and Plan: most like the chest pain from rib fracture, 3 sets of cardiac enzymes are negative there are no acute changes on EKG, will continue to monitor (3) Insulin dependent diabetes mellitus: Status: Chronic Assessment and Plan: will continue home regimen and monitor (4) History of CVA (cerebrovascular accident): Code(s): Z86.73 - Personal history of transient ischemic attack (TIA), and cerebral infarction without residual deficits Status: Chronic Assessment and Plan: will have PT OT evaluate the patient (5) Congestive heart failure: Code(s): I50.9 - Heart failure, unspecified Status: Acute Assessment and Plan: patient being diuresed (6) Pulmonary embolism: Qualifiers: Pulmonary embolism type: unspecified Chronicity: acute Acute cor pulmonale presence: without acute cor pulmonale Qualified Code(s): I26.99 - Other pulmonary embolism without acute cor pulmonale Code(s): I26.99 - Other pulmonary embolism without acute cor pulmonale Status: Acute Assessment and Plan: there is a concern for pulmonary emboli patient is anticoagulated with Eliquis (7) COPD (chronic obstructive pulmonary disease): Code(s): J44.9 - Chronic obstructive pulmonary disease, unspecified Status: Acute Assessment and Plan: will continue bronchodilator Plan # shortness of breath worsening # left-sided chest pain: Related to recent rib fractures troponin serial is negative # acute on chronic hypoxic respiratory failure oxygen requirement increased. Chest x-ray with mild pulmonary edema. BNP elevated at 554. Used to be 0s last admission. Received 40 mg of IV Lasix in the ER. Will continue 40 mg IV daily. Recent admission with acute on chronic renal failure treated with IV fluids. Echo recently done with normal LV systolic function but with grade 2 diastolic dysfunction. # history of PE in the past with recent V/Q scan positive for pulmonary embolism high probability with large ways shape id perfusion defect at the lingula potentially both ER superior and inferior segments moderate size perfusion defect along the anterior segment of right upper lobe and medial segment of the right middle lobe and small perfusion defect along the lateral basilar segment of the left lower lobe with corresponding small airspace opacity at the lateral left lung base. Was started on Eliquis which will be continued this admission. med rec that he came in with does not have Eliquis. Nursing reports that he has not been getting his Eliquis at the facility. Will resume Eliquis here and try to do CTA however had dye allergy. Will proceed with CTA chest today and follow the clinical course to see if he needs CTA to further evaluate # recent pneumonia completed treatment. Will get sputum culture WBC count still elevated [address] get [address] chest to further evaluate # recent ERIC creatinine normal today will continue to monitor # insulin-dependent diabetes mellitus: Resume home medication # frequent falls: Likely secondary to neuropathy and/or orthostat
[2022-08-28 16:15] LABS: Glucose Point of Care 214 mg/dl (65-105)
--- NOTE | 2022-08-28 17:02 | PCRCNOTE ---
HOME O2 ERVIN DONE, SET UP WITH IV RESP CARE. 2 L WITH ACTIVITY. TANK IN ROOM FOR TRANSPORT HOME.
--- NOTE | 2022-08-28 17:06 | HOMEO2EVAL ---
Evaluation was performed at [facility] Home Oxygen Evaluation RC: Home Oxygen (O2) Evaluation Start: 08/28/22 12:07 Freq: ONCE Status: Active Protocol: RPE Activity Type Activity Date Activity User E-sign Co-sign Detail Recorded Client Recorded Date Recorded By Document 08/28/22 16:30 SUNDAR [email or web address] 08/28/22 17:00 SUNDAR Document 08/28/22 16:34 SUNDAR [email or web address] 08/28/22 17:00 SUNDAR Document 08/28/22 16:35 SUNDAR [email or web address] 08/28/22 17:00 SUNDAR Document 08/28/22 16:36 SUNDAR [email or web address] 08/28/22 17:00 SUNDAR Document 08/28/22 16:45 SUNDAR [email or web address] 08/28/22 17:00 SUNDAR 08/28/22 08/28/22 08/28/22 16:30 16:34 16:35 Home O2 Evaluation [Oxygen] -Test Phase Resting Exercise Exercise -Oxygen Delivery Room Air Room Air Nasal Cannula -Oxygen Flow Rate (L/min) 1 [Pulse Oximetry] -Pulse Oximetry (90-100 %) 96 86 L 87 L [Pulse Rate] -Pulse Rate (60-100 beats/min) 88 91 [Comments] -Home Oxygen Evaluation Comments [Charges] -Treatment Charges O2 Evaluation - Inpatient 08/28/22 08/28/22 16:36 16:45 Home O2 Evaluation [Oxygen] -Test Phase Exercise Resting -Oxygen Delivery Nasal Cannula Room Air -Oxygen Flow Rate (L/min) 2 [Pulse Oximetry] -Pulse Oximetry (90-100 %) 91 95 [Pulse Rate] -Pulse Rate (60-100 beats/min) 102 H 90 [Comments] -Home Oxygen Evaluation Comments PT REQUIRES 2 LITERS HOME O2 WITH EXERTION/ ACTIVITY [Charges] -Treatment Charges
--- NOTE | 2022-08-28 17:06 | HOMEO2EVAL ---
Evaluation was performed at [facility] Home Oxygen Evaluation RC: Home Oxygen (O2) Evaluation Start: 08/28/22 12:07 Freq: ONCE Status: Active Protocol: RPE Activity Type Activity Date Activity User E-sign Co-sign Detail Recorded Client Recorded Date Recorded By Document 08/28/22 16:30 SUNDAR [email or web address] 08/28/22 17:00 SUNDAR Document 08/28/22 16:34 SUNDAR [email or web address] 08/28/22 17:00 SUNDAR Document 08/28/22 16:35 SNUDAR [email or web address] 08/28/22 17:00 SUNDAR Document 08/28/22 16:36 SUNDAR [email or web address] 08/28/22 17:00 SUNDAR Document 08/28/22 16:45 SUNDAR [email or web address] 08/28/22 17:00 SUNDAR 08/28/22 08/28/22 08/28/22 16:30 16:34 16:35 Home O2 Evaluation [Oxygen] -Test Phase Resting Exercise Exercise -Oxygen Delivery Room Air Room Air Nasal Cannula -Oxygen Flow Rate (L/min) 1 [Pulse Oximetry] -Pulse Oximetry (90-100 %) 96 86 L 87 L [Pulse Rate] -Pulse Rate (60-100 beats/min) 88 91 [Comments] -Home Oxygen Evaluation Comments [Charges] -Treatment Charges O2 Evaluation - Inpatient 08/28/22 08/28/22 16:36 16:45 Home O2 Evaluation [Oxygen] -Test Phase Exercise Resting -Oxygen Delivery Nasal Cannula Room Air -Oxygen Flow Rate (L/min) 2 [Pulse Oximetry] -Pulse Oximetry (90-100 %) 91 95 [Pulse Rate] -Pulse Rate (60-100 beats/min) 102 H 90 [Comments] -Home Oxygen Evaluation Comments PT REQUIRES 2 LITERS HOME O2 WITH EXERTION/ ACTIVITY [Charges] -Treatment Charges
== END 2022-08-28 18:45 | disposition home health service (06) ==
LOC: ANHED 06:13 → ANHIMU 08:32
PROVIDERS: Admitting Provider Internal Medicine; Emergency Provider Emergency Medicine; PCP Internal Medicine; Visit Provider Family Medicine
DX: R09.02 Hypoxemia (principal); R07.1 Chest pain on breathing; E11.22 Type 2 diabetes mellitus with diabetic chronic kidney disease; N18.9 Chronic kidney disease, unspecified; I50.9 Heart failure, unspecified; I26.99 Other pulmonary embolism without acute cor pulmonale; J44.9 Chronic obstructive pulmonary disease, unspecified; J18.9 Pneumonia, unspecified organism; J90 Pleural effusion, not elsewhere classified; J98.11 Atelectasis; W19.XXXA Unspecified fall, initial encounter; S22.42XA Multiple fractures of ribs, left side, initial encounter for closed fracture; N40.0 Benign prostatic hyperplasia without lower urinary tract symptoms; F41.9 Anxiety disorder, unspecified; F32.A Depression, unspecified; Z99.81 Dependence on supplemental oxygen; Z20.822 Contact with and (suspected) exposure to COVID-19; F40.240 Claustrophobia; D64.9 Anemia, unspecified; I51.89 Other ill-defined heart diseases; R94.31 Abnormal electrocardiogram [ECG] [EKG]; R00.0 Tachycardia, unspecified; Z86.73 Personal history of transient ischemic attack (TIA), and cerebral infarction without residual deficits; Z87.891 Personal history of nicotine dependence; Z79.4 Long term (current) use of insulin; Z79.01 Long term (current) use of anticoagulants; Z79.85 Long-term (current) use of injectable non-insulin antidiabetic drugs; Z79.891 Long term (current) use of opiate analgesic; Z79.51 Long term (current) use of inhaled steroids; Z79.899 Other long term (current) drug therapy
CPT/HCPCS: 36415; 71045; 71250; 80053; 82948; 83690; 83880; 84484; 85025; 85610; 85730; 87637; 93005; 94618; 94640; 96374; 96375; 96376; 97161; 97166; 99285; A9270; G0378; J1815; J1940; J2270

== ENCOUNTER 2022-10-15 03:55 | Emergency (ER) | payer MEDICARE, SELFPAY ==
--- NOTE | ~2022-10-15 | XR_ITS ---
Portable chest x-ray Comparison: 08/26/2022 Clinical History: Weakness, altered mental status Findings: Lungs are clear, without focal consolidation or pleural effusion. Cardiomediastinal silho uette is stable. Bones and soft tissues are unremarkable. Impression: Clear lungs. Reviewed, dictated and finalized at location . ING MACHINE OPERATOR Impression: Clear lungs.
--- NOTE | ~2022-10-15 | CT_ITS ---
CT head without contrast Indication: Altered mental status COMPARISON: 04/10/2021 Technique: Serial scans were obtained through the brain without the administration of contrast. Dose reduction technique was used on this scan by utilizing automated exposure control and iterative recon struction technique. The dose-length product (DLP) was 681.00 mGy-cm. Findings: There is no evidence of intracranial hemorrhage, mass lesion, or acute infarct. Large chron ic right MCA distribution infarct is again present. Stable chronic lacunar infarct left basal ganglia . The ventricles and subarachnoid spaces are dilated, consistent with mild atrophy. Low attenuation regions are seen within the periventricular white matter bilaterally, likely representing changes fro m chronic microvascular ischemic disease. There is no evidence of edema, mass effect or midline shif t. Mild right maxillary sinus disease noted. The remaining visualized paranasal sinuses and mastoid a ir cells are clear. Impression: No intracranial hemorrhage, mass, or acute infarct. Large chronic right MCA distribution infarct, unchanged. Stable chronic left basal ganglia lacunar infarct. Atrophy and chronic white matter changes, as above. Reviewed, dictated and finalized at location M. NICIAN ANATOMIC PATHOLOGY Impression: No intracranial hemorrhage, mass, or acute infarct. Large chronic right MCA distribution infarct, unchanged. Stable chronic left basal ganglia lacunar infarct. Atrophy and chronic white matter changes, as above.
[2022-10-15 04:04] VITALS: BP 132/85; PULSE 107; RESP 20; TEMP 36.1; O2SAT 96
[2022-10-15 04:51] LABS: Basophils Absolute Auto 0.1 K/mm3 (0.0-0.1); Basophils Percent Auto 0.7 % (0.2-1.2); Eosinophils Absolute Auto 0.4 K/mm3 (0-0.3); Hematocrit 40.1 % (42.0-52.0); Hemoglobin 13.6 g/dL (14.0-18.0); Immature Granulocyte Absolute 0.15 K/mm3 (0.00-0.031); Immature Granulocyte Percent A 0.8 % (0-0.5); Lymphocytes Percent Auto 16.7 % (18.3-44.2); Mean Corpuscular HGB Conc 33.9 g/dl (32-36); Mean Corpuscular Hemoglobin 30.8 pg (26-34); Mean Corpuscular Volume 90.7 fl (80-100); Mean Platelet Volume 10.8 fl (7.4-10.4); Monocytes Absolute Auto 1.7 K/mm3 (0.1-0.6); Monocytes Percent Auto 8.6 % (2.6-8.5); Neutrophils Absolute Auto 14.1 K/mm3 (1.3-6.7); Neutrophils Percent Auto 71.2 % (45.5-73.1); Nucleated Red Blood Cells Perc 0.1 % (0.0-0.2); Platelet Count Result 589 k/mm3 (150-375); Red Blood Count 4.42 M/mm3 (4.6-6.20); White Blood Count 19.8 K/mm3 (4.5-10.0)
[2022-10-15 05:01] LABS: Acetaminophen < 10 ug/mL (10-30); Alanine Aminotransferase 18 U/L (6-50); Albumin Level 3.9 g/dL (3.5-5.1); Alkaline Phosphatase 66 U/L (38-126); Ammonia 16 umol/L (9-30); Anion Gap 5 mmol/L (8-16); Aspartate Amino Transferase 22 U/L (17-59); Bilirubin,Total 0.7 mg/dL (0.2-1.3); Blood Urea Nitrogen 13 mg/dL (9-20); Calcium 8.9 mg/dL (8.4-10.2); Carbon Dioxide 29 mmol/L (22-30); Chloride 99 mmol/L (98-107); Creatine Kinase 47 U/L (55-170); Estimated CRCL calculation 76 ml/min; Estimated Glomerular Filt Rate > 60; Ethanol < 10 mg/dL (<10); Glucose 131 mg/dL (65-110); Potassium 3.8 mmol/L (3.4-5.0); Salicylate < 1.0 mg/dL (2-20); Sodium 133 mmol/L (137-145)
[2022-10-15 05:03] LABS: Lactic Acid Reflex 1.5 mmol/L (0.7-2.0)
[2022-10-15] MEDS: LACTATED RINGERS 1,000 ML 999 ML IV CONT (05:13)
--- NOTE | 2022-10-15 05:24 | ED.AMS ---
HPI - Altered Mental Status General Chief Complaint: Altered Mental Status Stated Complaint: AMS, FALLS Time Seen by Provider: 10/15/22 04:01 History of Present Illness HPI narrative: Patient presents after ambulance called by family members who stated that patient seemed confused, was talking about being on a boat that he was at home. To me, patient denies any issues, states that he had been dreaming while on Ambien, and that he feels completely normal and has no issues other than he has a sore on his buttock that is painful. Related Data Home Medications Medication Instructions Recorded Confirmed budesonide-formoterol HFA 160 2 puff inhalation Q12H 11/08/20 08/26/22 mcg-4.5 mcg/actuation aerosol inhaler (Symbicort) cholecalciferol (vitamin D3) 1,250 1,250 mcg PO WEEKLY 11/08/20 08/26/22 mcg (50,000 unit) capsule finasteride 5 mg tablet 5 mg PO DAILY 11/08/20 08/26/22 montelukast 10 mg tablet 10 mg PO HS 11/08/20 08/26/22 cyclobenzaprine 10 mg tablet 10 mg PO Q8H PRN Muscle Spasm 04/11/21 08/26/22 venlafaxine 37.5 mg tablet 37.5 mg PO Q12H 04/11/21 08/26/22 zolpidem 10 mg tablet 10 mg PO HS 04/11/21 08/26/22 pregabalin 100 mg capsule (Lyrica) 100 mg PO Q12H 07/17/22 08/26/22 olopatadine 0.1 % eye drops 1 drp EACH EYE BID PRN Allergy 08/16/22 08/26/22 Symptoms tamsulosin 0.4 mg capsule 0.4 mg PO Q12H 08/16/22 08/26/22 benzonatate 100 mg capsule 100 mg PO TID 08/26/22 08/26/22 bisacodyl 10 mg rectal suppository 10 mg RECTAL DAILY PRN Constipation 08/26/22 08/26/22 diazepam 2 mg tablet 1 mg PO Q12H PRN Anxiety 08/26/22 08/26/22 dulaglutide 0.75 mg/0.5 mL 0.75 mg subcut WEEKLY 08/26/22 08/26/22 subcutaneous pen injector fenofibrate micronized 200 mg 200 mg PO HS 08/26/22 08/26/22 capsule glucagon 1 mg solution for 1 mg subcut Q20M PRN Hypoglycemia 08/26/22 08/26/22 injection (Glucagon Emergency Kit) hydrocodone 5 mg-acetaminophen 325 1 tablet PO Q4H PRN Pain 08/26/22 08/26/22 mg tablet insulin glargine 100 unit/mL (3 40 unit subcut HS 08/26/22 08/26/22 mL) subcutaneous pen (Lantus Solostar U-100 Insulin) insulin lispro 100 unit/mL 12 unit subcut TIDWM 08/26/22 08/26/22 subcutaneous pen (Humalog KwikPen (U-100) Insulin) magnesium citrate (Citroma oral 300 ml PO DAILY PRN Constipation 08/26/22 08/26/22 solution) magnesium hydroxide 400 mg/5 mL 30 ml PO HS PRN Constipation 08/26/22 08/26/22 oral suspension (Milk of Magnesia) magnesium oxide 400 mg (241.3 mg 400 mg PO BID 08/26/22 08/26/22 magnesium) tablet pravastatin 40 mg tablet 40 mg PO HS 08/26/22 08/26/22 sodium chloride 0.65 % nasal spray 2 spray intranasal Q6HR PRN 08/26/22 08/26/22 aerosol (Saline Mist) Congestion sodium phosphates 19 gram-7 118 ml RECTAL ONCE PRN Constipation 08/26/22 08/26/22 gram/118 mL enema (Fleet Enema) Allergies Allergy/AdvReac Type Severity Reaction Status Date / Time naproxen Allergy Intermediate SWELLING Verified 08/26/22 05:45 cefepime Allergy Unknown Blister Unverified 08/31/22 09:05 morphine Allergy Unknown Vomiting Unverified 08/31/22 09:05 iohexol Allergy Unknown Verified 08/26/22 05:45 [From contrast - CT, X-RAY] Review of Systems Review of Systems: CONST: No fever. HEENT: No sore throat C/V: No chest pain RESP: No cough GI: No abdominal pain : No dysuria. M/S: No joint pain. SKIN: Ulcer on bottom. NEURO: [No headache or focal numbness or weakness] PSYCH: [No depression] [facility] Past Medical History Medical History Anemia Anxiety Benign prostatic hyperplasia Cerebrovascular accident (2015) Chronic kidney disease Claustrophobia Depression Diastolic dysfunction Enterobacter sepsis Secondary to UTI. Fracture of proximal end of left humerus Left cervical radiculopathy Migraines MRSA infection Myelofibrosis Neuropathy Obstructive sleep apnea Noncompliant with CPAP Pulmonary embolism (~01/2020) Type 2 diabetes mellitus
[2022-10-15 05:54] LABS: Influenza A QL RT-PCR Negative (Negative); Influenza B QL RT-PCR Negative (Negative); RSV RNA, RT-PCR Negative (Negative); SARS-CoV-2 RNA PCR Negative
[2022-10-15 06:21] LABS: Add Urine Microscopic? YES; Appearance Urine Clear (Clear); Bilirubin Urine Negative (Negative); Blood Urine Negative (Negative); Color Urine Light Yellow (Yellow); Glucose Urine UA Negative (Negative); Ketones Urine Negative (Negative); Leukocyte Esterase Ur Negative LEU/UL (Negative); Nitrate Urine Negative (Negative); Protein Urine 2+ mg/dL (Negative)
[2022-10-15 06:35] LABS: Amphetamine Screen Urine Negative (Negative); Barbiturate Screen Urine Negative (Negative); Benzodiazepines Screen Urine Positive (Negative); Cannabinoid Screen Urine Positive (Negative); Cocaine Screen Urine Negative (Negative); Methadone Screen Urine Negative (Negative); Opiate Screen Urine Negative (Negative); Phencyclidine Screen Urine Negative (Negative)
[2022-10-15 07:33] LABS: Mucus Urine Rare /lpf; RBC Urine 0-2 /hpf (0-2); WBC Urine 0-3 /hpf
[2022-10-15 08:19] VITALS: BP 155/74; PULSE 117; RESP 18; O2SAT 98
== END 2022-10-15 08:20 | disposition home or self-care (01) ==
PROVIDERS: Emergency Provider Emergency Medicine; PCP Internal Medicine
DX: R41.82 Altered mental status, unspecified (principal); Z20.822 Contact with and (suspected) exposure to COVID-19; E11.22 Type 2 diabetes mellitus with diabetic chronic kidney disease; N18.9 Chronic kidney disease, unspecified; E11.40 Type 2 diabetes mellitus with diabetic neuropathy, unspecified; D64.9 Anemia, unspecified; D75.81 Myelofibrosis; N40.0 Benign prostatic hyperplasia without lower urinary tract symptoms; G47.33 Obstructive sleep apnea (adult) (pediatric); F41.9 Anxiety disorder, unspecified; F32.A Depression, unspecified; Z86.73 Personal history of transient ischemic attack (TIA), and cerebral infarction without residual deficits; Z86.14 Personal history of Methicillin resistant Staphylococcus aureus infection; Z86.711 Personal history of pulmonary embolism; Z87.891 Personal history of nicotine dependence; Z89.411 Acquired absence of right great toe; Z90.81 Acquired absence of spleen; Z89.412 Acquired absence of left great toe; Z79.4 Long term (current) use of insulin; Z79.899 Other long term (current) drug therapy
CPT/HCPCS: 36415; 70450; 71045; 80053; 80307; 81001; 82140; 82550; 83605; 84443; 85025; 87637; 96360; 99284; J7120

== ENCOUNTER 2022-11-19 16:17 | Inpatient (IN) | payer MEDICARE, SELFPAY ==
[2022-11-19] VITALS (32 sets, daily range): BP systolic 113–153; BP diastolic 60–121; PULSE 112–124; RESP 0–22; TEMP 36.6–37.2; O2SAT 94–100; BMI 26.6
--- NOTE | ~2022-11-19 | CT_ITS ---
EXAMINATION: CT brain wo con DATE: 11/19/2022 17:03 INDICATION: Altered mental status. Dizziness. TECHNIQUE: Computed tomography (CT) of the head was performed without intravenous contrast. The mA wa s adjusted according to patient size. Iterative reconstruction technique was employed. The dose-lengt h product was 983.67 mGy-cm. COMPARISON: Head CT 10/15/2022 FINDINGS: There is an old infarct in the left basal ganglia. There are old infarcts in the right fron pilar and parietal lobes. There are scattered areas of low attenuation in the left cerebral white matte r, likely mild chronic small vessel ischemic disease. There is no intracranial hemorrhage, acute infa rction, or abnormal intracranial mass lesion. There is ex vacuo dilatation of body of right lateral v entricle. The orbits are normal. There is mild mucosal thickening in the paranasal sinuses. The masto id air cells are normal. There is posterior scalp soft tissue swelling. IMPRESSION: 1. Old infarcts involving the right frontal and parietal lobes and left basal ganglia. Reviewed, dictated and finalized at location A. NCT PHYSICAL EDUCATION INSTRUCTOR IMPRESSION: 1. Old infarcts involving the right frontal and parietal lobes and left basal g anglia.
--- NOTE | ~2022-11-19 | XR_ITS ---
EXAMINATION: XR chest 1V DATE: 11/19/2022 17:07 INDICATION: Cerebrovascular accident. TECHNIQUE: A single frontal view of the chest was obtained. COMPARISON: Chest single view 10/15/2022, chest CT 08/26/2022 FINDINGS: There is prominent extrapleural fat bilaterally. There is mild atelectasis in left lower bill ng zone. No pleural effusion or pneumothorax. The heart size is normal. Surgical clips in the right u pper quadrant are likely from cholecystectomy. IMPRESSION: 1. Mild atelectasis in left lower lung zone. Reviewed, dictated and finalized at location A. E HOIST OR LIFT OPERATOR
--- NOTE | ~2022-11-19 | XR_ITS ---
EXAMINATION: XR lumbar puncture diagnostic DATE: 11/19/2022 20:46 INDICATION: Altered mental status. TECHNIQUE: The skin overlying the L3-L4 level was prepped and draped in usual sterile fashion. Subcu taneous 1% lidocaine was used for local anesthesia. A 20 gauge spinal needle was advanced under fluo roscopic guidance. The needle was removed and the entry site was cleaned and dressed. There were no immediate complications. Fluoroscopy exposure time was 0.1 minutes. The total number of images was 1. FINDINGS: Real-time fluoroscopy demonstrates the needle at the L3-L4 level. The opening pressure was 14 cm water (Normal range is variably defined as 6-20 cm water and up to 25 cm water in obese patient s. Pressure >25 cm water is one of the modified Dandy criteria for idiopathic intracranial hypertensi on). 12 mL of clear, colorless fluid was collected in 4 tubes. IMPRESSION: 1. Successful fluoro-guided lumbar puncture. Reviewed, dictated and finalized at location A. ENTARY INSTRUCTIONAL COACH
--- NOTE | 2022-11-19 16:32 | ECG_ITS ---
Measurements Intervals [place] Rate: 116 P: 27 ID: 160 QRS: 8 QRSD: 93 T: 56 QT: 317 QTc: 442 Interpretive Statements SINUS TACHYCARDIA WITH FREQUENT VENTRICULAR PREMATURE COMPLEXES NONSPECIFIC T-WAVE ABNORMALITY ABNORMAL RHYTHM ECG COMPARED TO ECG 08/26/2022 05:48:39 NO SIGNIFICANT DIFFERENCE Electronically Signed On 11-20-2022 14:37:34 MINERAL SURVEYING TECHNICIAN by Jeremías Sellers M.D.
--- NOTE | 2022-11-19 16:51 | PC.NURSE ---
Patient to CT at this time.
--- NOTE | 2022-11-19 17:04 | ED.AMS ---
HPI - Altered Mental Status General Chief Complaint: Altered Mental Status Stated Complaint: not acting normal Source: EMS Mode of arrival: EMS History of Present Illness HPI narrative: Patient is a 62-year-old male with a history of with COPD, CVA, chronic kidney disease, insulin-dependent diabetes presenting to the emergency department for evaluation of altered mental status. At the time of assessment, patient is tachycardic, confused, hypertensive. He is alert and oriented to person and place, not to time. He is really unable to provide any history at all. History was mostly obtained from EMS that brought the patient in for evaluation. Apparently, he is well-known to them and has a history of frequent falls. Today, they were called by family, apparently this patient lives with his brother who is his primary caregiver. He was noted to be prone on the floor with altered mentation. In route, EMS states that there was a change in his cognition and he seemed to become confused and more lethargic. At the time of my assessment, patient is very fatigued appearing. He is not a reliable historian. History was otherwise limited. EMS states that he was hyperglycemic for them. Patient is disheveled and smells of urine. Related Data Home Medications Medication Instructions Recorded Confirmed budesonide-formoterol HFA 160 2 puff inhalation Q12H 11/08/20 08/26/22 mcg-4.5 mcg/actuation aerosol inhaler (Symbicort) cholecalciferol (vitamin D3) 1,250 1,250 mcg PO WEEKLY 11/08/20 08/26/22 mcg (50,000 unit) capsule finasteride 5 mg tablet 5 mg PO DAILY 11/08/20 08/26/22 montelukast 10 mg tablet 10 mg PO HS 11/08/20 08/26/22 cyclobenzaprine 10 mg tablet 10 mg PO Q8H PRN Muscle Spasm 04/11/21 08/26/22 venlafaxine 37.5 mg tablet 37.5 mg PO Q12H 04/11/21 08/26/22 zolpidem 10 mg tablet 10 mg PO HS 04/11/21 08/26/22 pregabalin 100 mg capsule (Lyrica) 100 mg PO Q12H 07/17/22 08/26/22 olopatadine 0.1 % eye drops 1 drp EACH EYE BID PRN Allergy 08/16/22 08/26/22 Symptoms tamsulosin 0.4 mg capsule 0.4 mg PO Q12H 08/16/22 08/26/22 benzonatate 100 mg capsule 100 mg PO TID 08/26/22 08/26/22 bisacodyl 10 mg rectal suppository 10 mg RECTAL DAILY PRN Constipation 08/26/22 08/26/22 diazepam 2 mg tablet 1 mg PO Q12H PRN Anxiety 08/26/22 08/26/22 dulaglutide 0.75 mg/0.5 mL 0.75 mg subcut WEEKLY 08/26/22 08/26/22 subcutaneous pen injector fenofibrate micronized 200 mg 200 mg PO HS 08/26/22 08/26/22 capsule glucagon 1 mg solution for 1 mg subcut Q20M PRN Hypoglycemia 08/26/22 08/26/22 injection (Glucagon Emergency Kit) hydrocodone 5 mg-acetaminophen 325 1 tablet PO Q4H PRN Pain 08/26/22 08/26/22 mg tablet insulin glargine 100 unit/mL (3 40 unit subcut HS 08/26/22 08/26/22 mL) subcutaneous pen (Lantus Solostar U-100 Insulin) insulin lispro 100 unit/mL 12 unit subcut TIDWM 08/26/22 08/26/22 subcutaneous pen (Humalog KwikPen (U-100) Insulin) magnesium citrate (Citroma oral 300 ml PO DAILY PRN Constipation 08/26/22 08/26/22 solution) magnesium hydroxide 400 mg/5 mL 30 ml PO HS PRN Constipation 08/26/22 08/26/22 oral suspension (Milk of Magnesia) magnesium oxide 400 mg (241.3 mg 400 mg PO BID 08/26/22 08/26/22 magnesium) tablet pravastatin 40 mg tablet 40 mg PO HS 08/26/22 08/26/22 sodium chloride 0.65 % nasal spray 2 spray intranasal Q6HR PRN 08/26/22 08/26/22 aerosol (Saline Mist) Congestion sodium phosphates 19 gram-7 118 ml RECTAL ONCE PRN Constipation 08/26/22 08/26/22 gram/118 mL enema (Fleet Enema) Allergies Allergy/AdvReac Type Severity Reaction Status Date / Time naproxen Allergy Intermediate SWELLING Verified 08/26/22 05:45 cefepime Allergy Unknown Blister Unverified 08/31/22 09:05 morphine Allergy Unknown Vomiting Unverified 08/31/22 09:05 iohexol Allergy Unknown Verified 08/26/22 05:45 [From contrast - CT, X-RAY] Review of Systems Review of Systems: ROS unobtainable: Yes unobtainable due to medical c
[2022-11-19 17:42] LABS: PCO2 ABG 40.7 mmHg (35.0-45.0); PO2 ABG 80.7 mmHg (80.0-100.0)
[2022-11-19 17:43] LABS: Base Excess ABG 0.6 mEq/l (+/-2.0); Carboxyhemoglobin 0.7 % THb (0-2.0); HCO3 ABG 25.2 mEq/l (22.0-26.0); Methemoglobin ABG 0.2 %THb (0-1.5); Oxyhemoglobin 94.6 % THb (90.0-100.0)
[2022-11-19 17:44] LABS: Oxygen Content ABG 17.3 %vol (16.0-22.0); PO2 FiO2 Ratio Arterial Blood 2.52 %; Reduced Hemoglobin 4.5 %THb (0-5.0)
[2022-11-19 17:45] LABS: Alveolar/Arterial O2 Gradient 99.8 mmHg; Device NASAL CANNULA; Modified Allen's Test Unable to perform; Site Drawn LEFT RADIAL
[2022-11-19 17:51] LABS: Hematocrit 39.4 % (42.0-52.0); Hemoglobin 13.1 g/dL (14.0-18.0); Mean Corpuscular HGB Conc 33.2 g/dl (32-36); Mean Corpuscular Hemoglobin 31.1 pg (26-34); Mean Corpuscular Volume 93.6 fl (80-100); Mean Platelet Volume 11.4 fl (7.4-10.4); Platelet Count Result 597 k/mm3 (150-375); Red Blood Count 4.21 M/mm3 (4.6-6.20); Red Cell Distribution Width 14.6 % (11.5-14.5); White Blood Count 21.1 K/mm3 (4.5-10.0)
[2022-11-19 17:56] LABS: Appearance Urine Clear (Clear); Bilirubin Urine Negative (Negative); Blood Urine Negative (Negative); Color Urine Yellow (Yellow); Glucose Urine UA Trace mg/dL (Negative); Ketones Urine Negative (Negative); Leukocyte Esterase Ur Negative LEU/UL (Negative); Nitrate Urine Negative (Negative); Protein Urine 2+ mg/dL (Negative); Specific Grav Ur 1.015 (1.001-1.035); pH Urine 5.5 (5.0-9.0)
[2022-11-19 18:02] LABS: Alanine Aminotransferase 20 U/L (6-50); Alkaline Phosphatase 82 U/L (38-126); Anion Gap 7 mmol/L (8-16); Aspartate Amino Transferase 26 U/L (17-59); Bilirubin,Total 0.6 mg/dL (0.2-1.3); Blood Urea Nitrogen 42 mg/dL (9-20); Carbon Dioxide 26 mmol/L (22-30); Chloride 106 mmol/L (98-107); Estimated CRCL calculation 47 ml/min; Estimated Glomerular Filt Rate 51; Glucose 221 mg/dL (65-110); INR 1.3; Potassium 4.5 mmol/L (3.4-5.0); Prothrombin Time 15.6 Seconds (11.1-14.7); Sodium 139 mmol/L (137-145)
[2022-11-19 18:03] LABS: RBC Urine 0-2 /hpf (0-2); WBC Urine 0-3 /hpf
[2022-11-19 18:03] LABS: Partial Thromboplastin Time 44.7 SECONDS (22.3-36.8)
[2022-11-19 18:03] LABS: Lactic Acid Reflex 3.1 mmol/L (0.7-2.0)
[2022-11-19 18:04] LABS: Add Urine Microscopic? YES
[2022-11-19 18:08] LABS: Beta-Hydroxybutyrate/Acetoacetate 0.22 mmol/L (0.02-0.27)
[2022-11-19 18:14] LABS: Troponin I < 0.012 ng/mL (0.000-0.034)
[2022-11-19] MEDS: SODIUM CHLORIDE 0.9% IV 1,000 ML 999 ML IV CONT ×2 (18:14→18:54)
[2022-11-19 18:32] LABS: Basophils Absolute Manual 0.21 K/mm3 (0.0-0.1); Basophils Percent Manual 1 % (0-1); Eosinophils Absolute Manual 0.21 K/mm3 (0.02-0.5); Eosinophils Percent Manual 1 % (0-4); Lymphocytes Absolute Manual 2.11 K/mm3 (1.1-4.5); Monocytes Absolute Manual 1.89 K/mm3 (0.1-0.90); Monocytes Percent Manual 9 % (3-9); Neutrophils Percent Manual 79 % (46-73); Total Cells Counted 100
[2022-11-19 18:33] LABS: Anisocytosis 2+ (NORMAL); Platelet Estimate Increased (Adequate)
[2022-11-19 18:41] LABS: Schistocytes None Seen (NORMAL)
[2022-11-19 19:04] LABS: Ethanol < 10 mg/dL (<10)
[2022-11-19 19:10] LABS: Ammonia < 9 umol/L (9-30)
[2022-11-19 20:33] LABS: Glucose CSF 141 mg/dL (40-70); Total Protein CSF 88 mg/dL (12-60)
[2022-11-19 20:49] LABS: Reflex Lactic Acid Yes or No Add Lactic
[2022-11-19] MEDS: SODIUM CHLORIDE 0.9% IV 1,000 ML 75 ML IV CONT (21:08)
--- NOTE | 2022-11-19 21:16 | PM.IMHP ---
H&P: HPI History of Present Illness Date/Time: 11/19/22 21:16 Chief Complaint: Fall, altered mental status Narrative: 62-year-old male with past medical history of CVA with residual hemiplegia, diabetes, hypertension, pulmonary embolism, diastolic heart failure, myelofibrosis, prior splenectomy and chronic kidney disease who presented to the ER due to altered mental status. The patient is well known to EMS due to multiple calls out for lift assist. When they arrived at the patient's home he was found in the prone position and was confused. His glucoses were 265 in the field. The patient had evidently told EMS that he was dizzy and weak 40 fell. Patient's blood pressures were normal on arrival to the ER. He had sinus tachycardia knee with afebrile. But his white count was elevated but in line with prior values when the patient was being treated with steroids for his COPD. He has not had any recent steroid administration that I can tell from external med records. In the ER UA was unremarkable and patient had lactic acidosis and received 2 L of fluid with normalization of his lactic acid level. An LP was performed by ER staff with glucose of 141 and protein elevated at 88. Remainder CSF studies are pending. The patient tells me that he felt as if he may be having a pneumonia. However the remainder of his history was difficult to obtain. Although the patient was to technically alert oriented to person place and questionable orientation to time but oriented to the name the current president was. His responses were bizarre and not exactly appropriate. The patient was reaching for things and repetitively tapping at his chest. When the patient initially arrived to the ER he could not tell the ER physician is last name and was only answering questions in yes or no. He knew that he was in the hospital but could not name hospital or why he was at the hospital. His condition improved after fluids but he remained tachycardic. He denies urinary symptoms. His evidence of prior forefoot amputations and chronic foot wounds that do not appear to be infected. ER nursing staff notified me that they had difficulty placing the Leigh catheter and a coude catheter had to be used. Review of Systems Review of Systems: ROS unobtainable: Yes unobtainable due to mental status PMFSH Past Medical History Medical History (Updated 11/20/22 @ 03:09 by Lynne Solis DO) Anemia Anxiety Benign prostatic hyperplasia Cerebrovascular accident (2015) Chronic kidney disease Claustrophobia Depression Diastolic heart failure Echo 08/2022: Mild concentric hypertrophy, systolic function 74%, grade 2 diastolic dysfunction, mild left atrial enlargement, right ventricle not well visualized but grossly normal Enterobacter sepsis Secondary to UTI. Fracture of proximal end of left humerus Left cervical radiculopathy Migraines MRSA infection Myelofibrosis Neuropathy Obstructive sleep apnea Noncompliant with CPAP Pulmonary embolism (~01/2020) PVD (peripheral vascular disease) Type 2 diabetes mellitus Surgical History Surgical History (Updated 11/20/22 @ 02:39 by Lynne Solis DO) Amputation of right forefoot Amputation of right great toe History of cholecystectomy History of hernia repair History of splenectomy (08/2019) Left great toe amputee (~04/2020) Partial Family History Family History Father , 75 Congestive heart failure Mother , 74 Brain bleed Sibling , Sister Cancer Dementia Social History Social History Social History: Surrogate medical decision maker: Humaira Schmidt (significant other) or Gloria Esparza (sister) Code status: Full code. Smoking status: Never smoker Tobacco type: cigars Smoking end date: 10/18/94 Alcohol intake: never Alcohol use details: 1/month Substance us
[2022-11-19 21:24] LABS: Lactic Acid 1.3 mmol/L (0.7-2.0)
[2022-11-19 21:39] LABS: Appearance CSF Clear (Clear); CSF source CSF; Color CSF Colorless (Colorless); Lymphocytes CSF 50 % (40-80); Monocytes CSF 50 % (15-45); Neutrophils CSF 0 % (0-6); Nucleated Cell CSF 6 /uL (0-5); Red Blood Cell CSF 10 (0-2)
[2022-11-19 21:51] LABS: Influenza A QL RT-PCR Negative (Negative); Influenza B QL RT-PCR Negative (Negative); RSV RNA, RT-PCR Negative (Negative); SARS-CoV-2 RNA PCR Negative
--- NOTE | 2022-11-19 23:04 | ADMGEN ---
This patient, Jeremías Gaines, was admitted to IMU Room 206-02 at 2240. Patient/family oriented to hospital policies and general routines including ID bracelet, bed and alarms, visiting hours, pain management, procedures, bathroom and other care routines, personal items, smoking policy, room service/diet, and visiting hours. Information on how to activate the Rapid Response Team has been discussed. Patient/Family are encouraged to report perceived risks to care and to ask questions if they do not understand what they are told or what they should do.
[2022-11-20] VITALS (21 sets, daily range): BP systolic 125–155; BP diastolic 60–73; PULSE 91–122; RESP 16–24; TEMP 35.9–37.2; O2SAT 93–98
[2022-11-20 04:38] LABS: Basophils Absolute Auto 0.1 K/mm3 (0.0-0.1); Basophils Percent Auto 0.6 % (0.2-1.2); Eosinophils Absolute Auto 0.7 K/mm3 (0-0.3); Eosinophils Percent Auto 3.7 % (0-4.4); Hematocrit 34.8 % (42.0-52.0); Hemoglobin 11.5 g/dL (14.0-18.0); Immature Granulocyte Absolute 0.11 K/mm3 (0.00-0.031); Immature Granulocyte Percent A 0.6 % (0-0.5); Lymphocytes Absolute Auto 3.42 K/mm3 (0.9-3.2); Lymphocytes Percent Auto 18.9 % (18.3-44.2); Mean Corpuscular Volume 93.8 fl (80-100); Mean Platelet Volume 11.6 fl (7.4-10.4); Monocytes Absolute Auto 1.3 K/mm3 (0.1-0.6); Neutrophils Absolute Auto 12.5 K/mm3 (1.3-6.7); Neutrophils Percent Auto 69.2 % (45.5-73.1); Platelet Count Result 566 k/mm3 (150-375); Red Blood Count 3.71 M/mm3 (4.6-6.20); Red Cell Distribution Width 14.6 % (11.5-14.5); White Blood Count 18.1 K/mm3 (4.5-10.0)
[2022-11-20 04:49] LABS: Chloride 109 mmol/L (98-107)
[2022-11-20 05:00] LABS: Alanine Aminotransferase 17 U/L (6-50); Albumin Level 3.2 g/dL (3.5-5.1); Alkaline Phosphatase 58 U/L (38-126); Anion Gap 4 mmol/L (8-16); Aspartate Amino Transferase 29 U/L (17-59); Bilirubin,Total 0.6 mg/dL (0.2-1.3); Blood Urea Nitrogen 30 mg/dL (9-20); Carbon Dioxide 25 mmol/L (22-30); Estimated CRCL calculation 58 ml/min; Estimated Glomerular Filt Rate > 60; Glucose 176 mg/dL (65-110); Potassium 3.8 mmol/L (3.4-5.0); Sodium 138 mmol/L (137-145)
[2022-11-20] MEDS: SODIUM CHLORIDE 0.9% IV 1,000 ML 75 ML IV CONT ×2 (05:39→23:20)
[2022-11-20 08:07] LABS: Glucose Point of Care 187 mg/dl (65-105)
[2022-11-20] MEDS: FLUTICASONE/SALMETEROL 115-21 MCG INHALER 1 PUFF 2 PUFF INHALATION ×2 (08:20→21:09)
[2022-11-20] MEDS: INSULIN ASPART (*BKC) 100 UNITS/ML 12 UNITS SUB-Q ×3 (08:34→17:05)
[2022-11-20] MEDS: FENOFIBRATE 160 MG TABLET PO (08:35)
[2022-11-20] MEDS: PREGABALIN (*CRX) 50 MG CAPSULE 100 MG PO ×2 (08:35→21:26)
[2022-11-20] MEDS: VENLAFAXINE HCL 37.5 MG TABLET PO ×2 (08:35→21:24)
[2022-11-20] MEDS: METOPROLOL SUCCINATE EXT REL 25 MG TABCR PO ×2 (08:35→21:24)
[2022-11-20] MEDS: FINASTERIDE 5 MG TABLET PO (08:35)
[2022-11-20] MEDS: MAGNESIUM OXIDE 400 MG TABLET PO ×2 (08:36→17:04)
[2022-11-20] MEDS: APIXABAN 5 MG TABLET PO ×2 (08:36→21:24)
[2022-11-20] MEDS: INSULIN GLARGINE (*BKC) 100 UNITS/ML 40 UNITS SUB-Q (08:52)
[2022-11-20] MEDS: LIDOCAINE 5% PATCH 1 PATCH TRANSDERM (09:05)
[2022-11-20] MEDS: NEOMYCIN/POLYMYXIN/BACITRACIN OINTMENT 15 GM TUBE 1 APPLIC TOPICAL (11:15)
[2022-11-20 12:18] LABS: Glucose Point of Care 179 mg/dl (65-105)
--- NOTE | 2022-11-20 16:01 | PCOTNOTE ---
Attempted to see pt. for occupational therapy evaluation. Pt. declined to participate in therapy at this time. Nursing aware. following
--- NOTE | 2022-11-20 16:49 | PM.IMPN ---
Progress Note: A&P Assessment and Plan (1) Sepsis: Qualifiers: Sepsis type: sepsis due to unspecified organism Sepsis acute organ dysfunction status: with acute organ dysfunction Severe sepsis acute organ dysfunction type: encephalopathy Code(s): A41.9 - Sepsis, unspecified organism Status: Acute Assessment and Plan: Sepsis criteria met with leukocytosis, tachycardia, tachypnea and lactic acidosis. Sepsis possibly due to meningitis given elevated protein noted in CSF. Other differential includes possible bacteremia given the patient's chronic foot wounds. Patient has been started on antibiotic therapy with vancomycin and acyclovir. Blood cultures and CSF cultures are pending. Bacterial meningitis less likely given elevated CSF glucose and appearance of fluid. The patient does have chronic leukocytosis some of his leukocytosis could be due to chronic myelodysplastic process. Will repeat CBC in a.m. and monitor for signs of infection including fever. Lactic acidosis has resolved after IV fluid hydration continue maintenance fluids at 75 mL an hour. Monitor strict I&O's given patient's history of CHF. 11/20/2022 interval history: patient still remains quite somnolent unable to provide any review of symptoms, will continue the present management with IV antibiotic, will follow-up on blood and spinal fluid culture, most likely patient has viral meningitis, will have a PT OT evaluate the and further recommendation to follow. (2) Encephalopathy: Code(s): G93.40 - Encephalopathy, unspecified Status: Acute Assessment and Plan: Likely due to a combination of sepsis possible meningitis verses some medication effect from polypharmacy. The patient is on multiple benzodiazepines at home including Flexeril, diazepam and Ambien. Will limit benzodiazepines by eliminating the Flexeril and Ambien. Will continue home diazepam. Monitor neuro status closely. (3) Wound of lower extremity: Qualifiers: Encounter type: initial encounter Laterality: left Qualified Code(s): S81.802A - Unspecified open wound, left lower leg, initial encounter Code(s): S81.809A - Unspecified open wound, unspecified lower leg, initial encounter Status: Acute Assessment and Plan: Wounds are clean and dry without evidence of acute infection. Will monitor (4) Acute kidney injury superimposed on CKD: Code(s): N17.9 - Acute kidney failure, unspecified; N18.9 - Chronic kidney disease, unspecified Status: Acute Assessment and Plan: Patient has chronic kidney disease listed however appears that the patient actually seems to have more episodes of acute kidney injury that usually resolves. He again has acute kidney injury likely due to sepsis and hypovolemia. Will repeat BMP in a.m. and monitor I&O's closely. The patient may also have some component of obstructive uropathy as he was unable to urinate in the ER in head of coude catheter placed with return of 600 mL of urine. Will continue home medications for BPH. (5) Diastolic heart failure: Code(s): I50.30 - Unspecified diastolic (congestive) heart failure Status: Acute Assessment and Plan: As discussed above (6) Type 2 diabetes mellitus with hyperglycemia, with long-term current use of insulin: Code(s): E11.65 - Type 2 diabetes mellitus with hyperglycemia; Z79.4 - [facility] (current) use of insulin Status: Acute Assessment and Plan: Will place patient on sliding scale insulin with Accu-Cheks a.c. HS. Will change diet to consistent carbohydrate diet as I think the patient is confused but is able to protect his airway and masticate food appropriately. Plan 95 minute spent in patient care Subjective Date/time seen: 11/20/22 16:49 Fall, altered mental status HPI-Narrative: 62-year-old male with past medical history of CVA with residual hemiplegia, diabetes, hypertension, pu
[2022-11-20 16:57] LABS: Glucose Point of Care 215 mg/dl (65-105)
[2022-11-20] MEDS: INSULIN ASPART (*BKC) 100 UNITS/ML SUB-Q (17:05)
[2022-11-20 21:19] LABS: Glucose Point of Care 125 mg/dl (65-105)
[2022-11-20] MEDS: MONTELUKAST SODIUM 10 MG TABLET PO (21:24)
[2022-11-20] MEDS: PRAVASTATIN SODIUM 20 MG TABLET 40 MG PO (21:24)
[2022-11-21] VITALS (18 sets, daily range): BP systolic 103–144; BP diastolic 46–85; PULSE 81–108; RESP 20–22; TEMP 36.2–36.7; O2SAT 94–98
[2022-11-21 04:48] LABS: Estimated CRCL calculation 65 ml/min; Estimated Glomerular Filt Rate > 60
[2022-11-21] MEDS: INSULIN GLARGINE (*BKC) 100 UNITS/ML 40 UNITS SUB-Q (08:42)
[2022-11-21] MEDS: PREGABALIN (*CRX) 50 MG CAPSULE 100 MG PO ×2 (08:43→20:22)
[2022-11-21] MEDS: INSULIN ASPART (*BKC) 100 UNITS/ML 12 UNITS SUB-Q ×3 (08:43→17:16)
[2022-11-21] MEDS: FENOFIBRATE 160 MG TABLET PO (08:44)
[2022-11-21] MEDS: NEOMYCIN/POLYMYXIN/BACITRACIN OINTMENT 15 GM TUBE 1 APPLIC TOPICAL (08:44)
[2022-11-21] MEDS: APIXABAN 5 MG TABLET PO ×2 (08:44→20:21)
[2022-11-21] MEDS: MAGNESIUM OXIDE 400 MG TABLET PO ×2 (08:44→17:18)
[2022-11-21] MEDS: VENLAFAXINE HCL 37.5 MG TABLET PO ×2 (08:44→20:21)
[2022-11-21] MEDS: FINASTERIDE 5 MG TABLET PO (08:44)
[2022-11-21] MEDS: METOPROLOL SUCCINATE EXT REL 25 MG TABCR PO ×2 (08:45→20:23)
[2022-11-21] MEDS: LIDOCAINE 5% PATCH 1 PATCH TRANSDERM (08:45)
[2022-11-21] MEDS: FLUTICASONE/SALMETEROL 115-21 MCG INHALER 1 PUFF 2 PUFF INHALATION ×2 (08:45→20:17)
[2022-11-21 10:12] LABS: Glucose Point of Care 190 mg/dl (65-105)
[2022-11-21] MEDS: INSULIN ASPART (*BKC) 100 UNITS/ML SUB-Q ×2 (11:42→17:17)
[2022-11-21] MEDS: ACETAMINOPHEN 325 MG TABLET 650 MG PO ×2 (12:42→18:21)
[2022-11-21 13:13] LABS: Glucose Point of Care 264 mg/dl (65-105)
[2022-11-21] MEDS: SODIUM CHLORIDE 0.9% IV 1,000 ML 75 ML IV CONT (14:29)
--- NOTE | 2022-11-21 15:11 | PM.IMPN ---
Progress Note: A&P Assessment and Plan (1) Sepsis: Qualifiers: Sepsis acute organ dysfunction status: with acute organ dysfunction Sepsis type: sepsis due to unspecified organism Severe sepsis acute organ dysfunction type: encephalopathy Code(s): A41.9 - Sepsis, unspecified organism Status: Acute Assessment and Plan: Sepsis criteria met with leukocytosis, tachycardia, tachypnea and lactic acidosis. Sepsis possibly due to meningitis given elevated protein noted in CSF. Other differential includes possible bacteremia given the patient's chronic foot wounds. Patient has been started on antibiotic therapy with vancomycin and acyclovir. Blood cultures and CSF cultures are pending. Bacterial meningitis less likely given elevated CSF glucose and appearance of fluid. The patient does have chronic leukocytosis some of his leukocytosis could be due to chronic myelodysplastic process. Will repeat CBC in a.m. and monitor for signs of infection including fever. Lactic acidosis has resolved after IV fluid hydration continue maintenance fluids at 75 mL an hour. Monitor strict I&O's given patient's history of CHF. 11/21/2022 interval history: today patient patient is little more awake states feels better denies any fever or chills, still confused, will continue the present management with IV antibiotic, will follow-up on blood and spinal fluid culture, most likely patient has viral meningitis, will have a PT OT evaluate the and further recommendation to follow. (2) Encephalopathy: Code(s): G93.40 - Encephalopathy, unspecified Status: Acute Assessment and Plan: Likely due to a combination of sepsis possible meningitis verses some medication effect from polypharmacy. The patient is on multiple benzodiazepines at home including Flexeril, diazepam and Ambien. Will limit benzodiazepines by eliminating the Flexeril and Ambien. Will continue home diazepam. Monitor neuro status closely. (3) Wound of lower extremity: Qualifiers: Encounter type: initial encounter Laterality: left Qualified Code(s): S81.802A - Unspecified open wound, left lower leg, initial encounter Code(s): S81.809A - Unspecified open wound, unspecified lower leg, initial encounter Status: Acute Assessment and Plan: Wounds are clean and dry without evidence of acute infection. Will monitor (4) Acute kidney injury superimposed on CKD: Code(s): N17.9 - Acute kidney failure, unspecified; N18.9 - Chronic kidney disease, unspecified Status: Acute Assessment and Plan: Patient has chronic kidney disease listed however appears that the patient actually seems to have more episodes of acute kidney injury that usually resolves. He again has acute kidney injury likely due to sepsis and hypovolemia. Will repeat BMP in a.m. and monitor I&O's closely. The patient may also have some component of obstructive uropathy as he was unable to urinate in the ER in head of coude catheter placed with return of 600 mL of urine. Will continue home medications for BPH. (5) Diastolic heart failure: Code(s): I50.30 - Unspecified diastolic (congestive) heart failure Status: Acute Assessment and Plan: As discussed above (6) Type 2 diabetes mellitus with hyperglycemia, with long-term current use of insulin: Code(s): E11.65 - Type 2 diabetes mellitus with hyperglycemia; Z79.4 - ocean transportation intermediary (current) use of insulin Status: Acute Assessment and Plan: Will place patient on sliding scale insulin with Accu-Cheks a.c. HS. Will change diet to consistent carbohydrate diet as I think the patient is confused but is able to protect his airway and masticate food appropriately. Plan 95 minute spent in patient care Subjective Date/time seen: 11/21/22 15:11 Sepsis criteria met with leukocytosis, tachycardia, tachypnea and lactic acidosis. Sepsis possibly due to meningitis gi
[2022-11-21 16:12] LABS: Anion Gap 2 mmol/L (8-16); Blood Urea Nitrogen 19 mg/dL (9-20); Calcium 9.2 mg/dL (8.4-10.2); Carbon Dioxide 28 mmol/L (22-30); Chloride 101 mmol/L (98-107); Estimated CRCL calculation 77 ml/min; Estimated Glomerular Filt Rate > 60; Glucose 223 mg/dL (65-110); Magnesium 1.2 mg/dL (1.6-2.3); Potassium 4.3 mmol/L (3.4-5.0); Sodium 131 mmol/L (137-145)
[2022-11-21 17:12] LABS: Glucose Point of Care 211 mg/dl (65-105)
[2022-11-21] MEDS: MAGNESIUM SULFATE 3GM/D5W100ML 3 GM/100 ML BAG IVPB (17:14)
[2022-11-21 20:04] LABS: Glucose Point of Care 201 mg/dl (65-105)
[2022-11-21] MEDS: MONTELUKAST SODIUM 10 MG TABLET PO (20:21)
[2022-11-21] MEDS: PRAVASTATIN SODIUM 20 MG TABLET 40 MG PO (20:21)
[2022-11-21] MEDS: SENNA/DOCUSATE SODIUM TABLET 2 TAB PO (20:22)
[2022-11-22] VITALS (17 sets, daily range): BP systolic 111–128; BP diastolic 60–64; PULSE 76–101; RESP 18–20; TEMP 36.3–36.6; O2SAT 96–100
[2022-11-22 03:13] LABS: Vancomycin Trough 11.3 ug/mL (10.0-20.0)
[2022-11-22] MEDS: SODIUM CHLORIDE 0.9% IV 1,000 ML 75 ML IV CONT ×2 (04:31→21:26)
[2022-11-22 05:23] LABS: Hematocrit 34.3 % (42.0-52.0); Hemoglobin 11.3 g/dL (14.0-18.0); Mean Corpuscular HGB Conc 32.9 g/dl (32-36); Mean Corpuscular Hemoglobin 30.8 pg (26-34); Mean Corpuscular Volume 93.5 fl (80-100); Mean Platelet Volume 11.8 fl (7.4-10.4); Platelet Count Result 565 k/mm3 (150-375); Red Blood Count 3.67 M/mm3 (4.6-6.20); Red Cell Distribution Width 14.5 % (11.5-14.5); White Blood Count 17.3 K/mm3 (4.5-10.0)
[2022-11-22 05:34] LABS: Anion Gap 4 mmol/L (8-16); Blood Urea Nitrogen 16 mg/dL (9-20); Calcium 8.7 mg/dL (8.4-10.2); Carbon Dioxide 26 mmol/L (22-30); Chloride 105 mmol/L (98-107); Estimated CRCL calculation 78 ml/min; Estimated Glomerular Filt Rate > 60; Glucose 172 mg/dL (65-110); Magnesium 1.6 mg/dL (1.6-2.3); Potassium 3.8 mmol/L (3.4-5.0); Sodium 135 mmol/L (137-145)
[2022-11-22 08:03] LABS: Glucose Point of Care 191 mg/dl (65-105)
[2022-11-22] MEDS: PREGABALIN (*CRX) 50 MG CAPSULE 100 MG PO ×2 (08:08→21:24)
[2022-11-22] MEDS: METOPROLOL SUCCINATE EXT REL 25 MG TABCR PO ×2 (08:09→21:24)
[2022-11-22] MEDS: MAGNESIUM OXIDE 400 MG TABLET PO ×2 (08:10→17:58)
[2022-11-22] MEDS: FENOFIBRATE 160 MG TABLET PO (08:10)
[2022-11-22] MEDS: FINASTERIDE 5 MG TABLET PO (08:10)
[2022-11-22] MEDS: APIXABAN 5 MG TABLET PO ×2 (08:10→21:25)
[2022-11-22] MEDS: VENLAFAXINE HCL 37.5 MG TABLET PO ×2 (08:10→21:25)
[2022-11-22] MEDS: LIDOCAINE 5% PATCH 1 PATCH TRANSDERM (08:11)
[2022-11-22] MEDS: NEOMYCIN/POLYMYXIN/BACITRACIN OINTMENT 15 GM TUBE 1 APPLIC TOPICAL (08:15)
[2022-11-22] MEDS: INSULIN ASPART (*BKC) 100 UNITS/ML 12 UNITS SUB-Q ×3 (08:16→17:55)
[2022-11-22] MEDS: FLUTICASONE/SALMETEROL 115-21 MCG INHALER 1 PUFF 2 PUFF INHALATION ×2 (08:24→21:33)
[2022-11-22] MEDS: INSULIN GLARGINE (*BKC) 100 UNITS/ML 40 UNITS SUB-Q (08:43)
[2022-11-22] MEDS: MAGNESIUM SULF 2 GM/WATER 50ML 2 GM/50 ML BAG IVPB (10:25)
[2022-11-22 12:08] LABS: Glucose Point of Care 204 mg/dl (65-105)
[2022-11-22] MEDS: INSULIN ASPART (*BKC) 100 UNITS/ML SUB-Q ×2 (12:15→17:55)
--- NOTE | 2022-11-22 13:44 | PM.IMPN ---
Progress Note: A&P Assessment and Plan (1) Sepsis: Qualifiers: Sepsis type: sepsis due to unspecified organism Sepsis acute organ dysfunction status: with acute organ dysfunction Severe sepsis acute organ dysfunction type: encephalopathy Code(s): A41.9 - Sepsis, unspecified organism Status: Acute Assessment and Plan: Sepsis criteria met with leukocytosis, tachycardia, tachypnea and lactic acidosis. Sepsis possibly due to meningitis given elevated protein noted in CSF. Other differential includes possible bacteremia given the patient's chronic foot wounds. Patient has been started on antibiotic therapy with vancomycin and acyclovir. Blood cultures and CSF cultures are pending. Bacterial meningitis less likely given elevated CSF glucose and appearance of fluid. The patient does have chronic leukocytosis some of his leukocytosis could be due to chronic myelodysplastic process. Will repeat CBC in a.m. and monitor for signs of infection including fever. Lactic acidosis has resolved after IV fluid hydration continue maintenance fluids at 75 mL an hour. Monitor strict I&O's given patient's history of CHF. 11/22/2022 interval history: today patient patient is little more awake states feels better denies any fever or chills, not as comfused, one bottle of blood culture is growing Staphylococcus epidermis suspect contamination, will continue the present management with IV antibiotic, will follow-up on blood and spinal fluid culture, most likely patient has viral meningitis, will have a PT OT evaluate the and further recommendation to follow. (2) Encephalopathy: Code(s): G93.40 - Encephalopathy, unspecified Status: Acute Assessment and Plan: Likely due to a combination of sepsis possible meningitis verses some medication effect from polypharmacy. The patient is on multiple benzodiazepines at home including Flexeril, diazepam and Ambien. Will limit benzodiazepines by eliminating the Flexeril and Ambien. Will continue home diazepam. Monitor neuro status closely. (3) Wound of lower extremity: Qualifiers: Encounter type: initial encounter Laterality: left Qualified Code(s): S81.802A - Unspecified open wound, left lower leg, initial encounter Code(s): S81.809A - Unspecified open wound, unspecified lower leg, initial encounter Status: Acute Assessment and Plan: Wounds are clean and dry without evidence of acute infection. Will monitor (4) Acute kidney injury superimposed on CKD: Code(s): N17.9 - Acute kidney failure, unspecified; N18.9 - Chronic kidney disease, unspecified Status: Acute Assessment and Plan: Patient has chronic kidney disease listed however appears that the patient actually seems to have more episodes of acute kidney injury that usually resolves. He again has acute kidney injury likely due to sepsis and hypovolemia. Will repeat BMP in a.m. and monitor I&O's closely. The patient may also have some component of obstructive uropathy as he was unable to urinate in the ER in head of coude catheter placed with return of 600 mL of urine. Will continue home medications for BPH. (5) Diastolic heart failure: Code(s): I50.30 - Unspecified diastolic (congestive) heart failure Status: Acute Assessment and Plan: As discussed above (6) Type 2 diabetes mellitus with hyperglycemia, with long-term current use of insulin: Code(s): E11.65 - Type 2 diabetes mellitus with hyperglycemia; Z79.4 - residential (current) use of insulin Status: Acute Assessment and Plan: Will place patient on sliding scale insulin with Accu-Cheks a.c. HS. Will change diet to consistent carbohydrate diet as I think the patient is confused but is able to protect his airway and masticate food appropriately. Plan 95 minute spent in patient care Subjective Date/time seen: 11/22/22 13:44 Sepsis criteria met with tino
--- NOTE | 2022-11-22 16:43 | PC.NURSE ---
This patient, Jeremías Gaines, was transferred to [facility] on 11/22/22 at 1630. Personal belongings sent with patient. Report given to Rebekah . Appropriate documentation sent with patient.
[2022-11-22 17:36] LABS: Glucose Point of Care 225 mg/dl (65-105)
[2022-11-22 21:11] LABS: Glucose Point of Care 156 mg/dl (65-105)
[2022-11-22] MEDS: MONTELUKAST SODIUM 10 MG TABLET PO (21:24)
[2022-11-22] MEDS: PRAVASTATIN SODIUM 20 MG TABLET 40 MG PO (21:24)
[2022-11-22] MEDS: SENNA/DOCUSATE SODIUM TABLET 2 TAB PO (21:25)
[2022-11-22] MEDS: diazePAM (*CRX) 2 MG TABLET PO (21:47)
[2022-11-23] VITALS (15 sets, daily range): BP systolic 112–131; BP diastolic 52–66; PULSE 58–109; RESP 16–20; TEMP 36.6–37; O2SAT 93–98
[2022-11-23 03:35] LABS: Glucose Point of Care 205 mg/dl (65-105)
[2022-11-23 06:27] LABS: Hematocrit 34.4 % (42.0-52.0); Hemoglobin 11.5 g/dL (14.0-18.0); Mean Corpuscular HGB Conc 33.4 g/dl (32-36); Mean Corpuscular Hemoglobin 30.9 pg (26-34); Mean Corpuscular Volume 92.5 fl (80-100); Platelet Count Result 582 k/mm3 (150-375); Red Blood Count 3.72 M/mm3 (4.6-6.20); Red Cell Distribution Width 14.4 % (11.5-14.5); White Blood Count 19.6 K/mm3 (4.5-10.0)
[2022-11-23 06:41] LABS: Anion Gap 3 mmol/L (8-16); Blood Urea Nitrogen 17 mg/dL (9-20); Calcium 8.6 mg/dL (8.4-10.2); Carbon Dioxide 25 mmol/L (22-30); Chloride 104 mmol/L (98-107); Estimated CRCL calculation 78 ml/min; Estimated Glomerular Filt Rate > 60; Glucose 227 mg/dL (65-110); Magnesium 1.4 mg/dL (1.6-2.3); Potassium 3.9 mmol/L (3.4-5.0); Sodium 132 mmol/L (137-145)
[2022-11-23] MEDS: FLUTICASONE/SALMETEROL 115-21 MCG INHALER 1 PUFF 2 PUFF INHALATION ×2 (07:38→20:04)
[2022-11-23] MEDS: VENLAFAXINE HCL 37.5 MG TABLET PO ×2 (08:20→20:52)
[2022-11-23] MEDS: FENOFIBRATE 160 MG TABLET PO (08:20)
[2022-11-23] MEDS: METOPROLOL SUCCINATE EXT REL 25 MG TABCR PO ×2 (08:20→20:52)
[2022-11-23] MEDS: FINASTERIDE 5 MG TABLET PO (08:20)
[2022-11-23] MEDS: INSULIN GLARGINE (*BKC) 100 UNITS/ML 40 UNITS SUB-Q (08:20)
[2022-11-23] MEDS: MAGNESIUM OXIDE 400 MG TABLET PO ×2 (08:20→17:00)
[2022-11-23] MEDS: APIXABAN 5 MG TABLET PO ×2 (08:20→20:52)
[2022-11-23] MEDS: PREGABALIN (*CRX) 50 MG CAPSULE 100 MG PO ×2 (08:20→21:18)
[2022-11-23] MEDS: INSULIN ASPART (*BKC) 100 UNITS/ML 12 UNITS SUB-Q ×3 (08:21→17:00)
[2022-11-23] MEDS: INSULIN ASPART (*BKC) 100 UNITS/ML SUB-Q (08:21)
[2022-11-23] MEDS: MAGNESIUM SULFATE 3GM/D5W100ML 3 GM/100 ML BAG IVPB (08:21)
[2022-11-23 08:22] LABS: Glucose Point of Care 217 mg/dl (65-105)
[2022-11-23] MEDS: LIDOCAINE 5% PATCH 1 PATCH TRANSDERM (08:22)
[2022-11-23] MEDS: NEOMYCIN/POLYMYXIN/BACITRACIN OINTMENT 15 GM TUBE 1 APPLIC TOPICAL (08:23)
[2022-11-23] MEDS: ACETAMINOPHEN 325 MG TABLET 650 MG PO (08:32)
--- NOTE | 2022-11-23 10:10 | PCPTNOTE ---
Attempted to see patient for PT, however patient refused. Patient reported he did not sleep good last night and would like to take a nap at this time.
--- NOTE | 2022-11-23 11:22 | PM.IMPN ---
Progress Note: A&P Assessment and Plan (1) Sepsis: Qualifiers: Sepsis acute organ dysfunction status: with acute organ dysfunction Sepsis type: sepsis due to unspecified organism Severe sepsis acute organ dysfunction type: encephalopathy Code(s): A41.9 - Sepsis, unspecified organism Status: Acute Assessment and Plan: Sepsis criteria met with leukocytosis, tachycardia, tachypnea and lactic acidosis. Sepsis possibly due to meningitis given elevated protein noted in CSF. Other differential includes possible bacteremia given the patient's chronic foot wounds. Patient has been started on antibiotic therapy with vancomycin and acyclovir. Blood cultures and CSF cultures are pending. Bacterial meningitis less likely given elevated CSF glucose and appearance of fluid. The patient does have chronic leukocytosis some of his leukocytosis could be due to chronic myelodysplastic process. Will repeat CBC in a.m. and monitor for signs of infection including fever. Lactic acidosis has resolved after IV fluid hydration continue maintenance fluids at 75 mL an hour. Monitor strict I&O's given patient's history of CHF. 11/23/2022 interval history: today patient patient is little more awake states feels better denies any fever or chills, not as comfused, one bottle of blood culture is growing Staphylococcus epidermis suspect contamination, will continue the present management with IV antibiotic, will follow-up on blood and spinal fluid culture for HSV and enterovirus RNA RT- PCR is pending, will continue acyclovir, most likely patient has viral meningitis, will have a PT OT evaluate the and further recommendation to follow. (2) Encephalopathy: Code(s): G93.40 - Encephalopathy, unspecified Status: Acute Assessment and Plan: Likely due to a combination of sepsis possible meningitis verses some medication effect from polypharmacy. The patient is on multiple benzodiazepines at home including Flexeril, diazepam and Ambien. Will limit benzodiazepines by eliminating the Flexeril and Ambien. Will continue home diazepam. Monitor neuro status closely. (3) Wound of lower extremity: Qualifiers: Encounter type: initial encounter Laterality: left Qualified Code(s): S81.802A - Unspecified open wound, left lower leg, initial encounter Code(s): S81.809A - Unspecified open wound, unspecified lower leg, initial encounter Status: Acute Assessment and Plan: Wounds are clean and dry without evidence of acute infection. Will monitor (4) Acute kidney injury superimposed on CKD: Code(s): N17.9 - Acute kidney failure, unspecified; N18.9 - Chronic kidney disease, unspecified Status: Acute Assessment and Plan: Patient has chronic kidney disease listed however appears that the patient actually seems to have more episodes of acute kidney injury that usually resolves. He again has acute kidney injury likely due to sepsis and hypovolemia. Will repeat BMP in a.m. and monitor I&O's closely. The patient may also have some component of obstructive uropathy as he was unable to urinate in the ER in head of coude catheter placed with return of 600 mL of urine. Will continue home medications for BPH. (5) Diastolic heart failure: Code(s): I50.30 - Unspecified diastolic (congestive) heart failure Status: Acute Assessment and Plan: As discussed above (6) Type 2 diabetes mellitus with hyperglycemia, with long-term current use of insulin: Code(s): E11.65 - Type 2 diabetes mellitus with hyperglycemia; Z79.4 - [employer] (current) use of insulin Status: Acute Assessment and Plan: Will place patient on sliding scale insulin with Accu-Cheks a.c. HS. Will change diet to consistent carbohydrate diet as I think the patient is confused but is able to protect his airway and masticate food appropriately. Plan 95 minute spent in patient care Subje
[2022-11-23 11:31] LABS: Herpes Simplex Type 1 DNA PCR Not Detected (Not Detected); Herpes Simplex Type 2 DNA PCR Not Detected (Not Detected)
[2022-11-23 12:46] LABS: Glucose Point of Care 141 mg/dl (65-105)
[2022-11-23 16:34] LABS: Glucose Point of Care 137 mg/dl (65-105)
[2022-11-23] MEDS: SODIUM CHLORIDE 0.9% IV 1,000 ML 75 ML IV CONT (17:00)
[2022-11-23] MEDS: ACYCLOVIR SODIUM IVPB 800 MG in DEXTROSE 5% IN WATER 250 ML 266 MG IVPB ×2 (18:09→20:51)
[2022-11-23 20:14] LABS: Glucose Point of Care 214 mg/dl (65-105)
[2022-11-23] MEDS: MONTELUKAST SODIUM 10 MG TABLET PO (20:52)
[2022-11-23] MEDS: SENNA/DOCUSATE SODIUM TABLET 2 TAB PO (20:52)
[2022-11-23] MEDS: diazePAM (*CRX) 2 MG TABLET PO (20:52)
[2022-11-23] MEDS: PRAVASTATIN SODIUM 20 MG TABLET 40 MG PO (20:52)
[2022-11-23] MEDS: ZOLPIDEM TARTRATE (*CRX) 5 MG TABLET PO (20:52)
[2022-11-24] VITALS (13 sets, daily range): BP systolic 128–145; BP diastolic 63–80; PULSE 78–103; RESP 16–18; TEMP 36.5–36.9; O2SAT 94–100
[2022-11-24 03:07] LABS: Hematocrit 34.5 % (42.0-52.0); Hemoglobin 11.8 g/dL (14.0-18.0); Mean Corpuscular HGB Conc 34.2 g/dl (32-36); Mean Corpuscular Hemoglobin 32.5 pg (26-34); Mean Platelet Volume 11.2 fl (7.4-10.4); Platelet Count Result 615 k/mm3 (150-375); Red Blood Count 3.63 M/mm3 (4.6-6.20); Red Cell Distribution Width 14.5 % (11.5-14.5); White Blood Count 17.8 K/mm3 (4.5-10.0)
[2022-11-24] MEDS: SODIUM CHLORIDE 0.9% IV 1,000 ML 75 ML IV CONT ×2 (03:11→21:23)
[2022-11-24] MEDS: ACETAMINOPHEN 325 MG TABLET 650 MG PO (03:12)
[2022-11-24 03:18] LABS: Anion Gap 3 mmol/L (8-16); Blood Urea Nitrogen 17 mg/dL (9-20); Calcium 8.7 mg/dL (8.4-10.2); Carbon Dioxide 25 mmol/L (22-30); Chloride 104 mmol/L (98-107); Estimated CRCL calculation 72 ml/min; Estimated Glomerular Filt Rate > 60; Glucose 137 mg/dL (65-110); Magnesium 1.6 mg/dL (1.6-2.3); Potassium 4.1 mmol/L (3.4-5.0); Sodium 132 mmol/L (137-145)
[2022-11-24 03:38] LABS: Vancomycin Trough 20.5 ug/mL (10.0-20.0)
[2022-11-24] MEDS: ACYCLOVIR SODIUM IVPB 800 MG in DEXTROSE 5% IN WATER 250 ML 266 MG IVPB ×2 (05:12→13:27)
[2022-11-24] MEDS: FLUTICASONE/SALMETEROL 115-21 MCG INHALER 1 PUFF 2 PUFF INHALATION ×2 (07:10→20:28)
[2022-11-24] MEDS: PREGABALIN (*CRX) 50 MG CAPSULE 100 MG PO ×2 (08:29→21:22)
[2022-11-24] MEDS: polyethylene glycoL 3350 17 GM POWD.PACK PO (08:30)
[2022-11-24] MEDS: FENOFIBRATE 160 MG TABLET PO (08:30)
[2022-11-24] MEDS: VENLAFAXINE HCL 37.5 MG TABLET PO ×2 (08:30→21:23)
[2022-11-24] MEDS: METOPROLOL SUCCINATE EXT REL 25 MG TABCR PO ×2 (08:30→21:22)
[2022-11-24] MEDS: APIXABAN 5 MG TABLET PO ×2 (08:30→21:23)
[2022-11-24] MEDS: MAGNESIUM OXIDE 400 MG TABLET PO ×2 (08:30→16:57)
[2022-11-24] MEDS: FINASTERIDE 5 MG TABLET PO (08:30)
[2022-11-24] MEDS: INSULIN GLARGINE (*BKC) 100 UNITS/ML 40 UNITS SUB-Q (08:31)
[2022-11-24] MEDS: NEOMYCIN/POLYMYXIN/BACITRACIN OINTMENT 15 GM TUBE 1 APPLIC TOPICAL (08:31)
[2022-11-24] MEDS: INSULIN ASPART (*BKC) 100 UNITS/ML 12 UNITS SUB-Q (08:32)
[2022-11-24 08:55] LABS: Glucose Point of Care 147 mg/dl (65-105)
[2022-11-24 12:29] LABS: Glucose Point of Care 62 mg/dl (65-105)
[2022-11-24 13:21] LABS: Glucose Point of Care 96 mg/dl (65-105)
--- NOTE | 2022-11-24 15:24 | PM.IMPN ---
Progress Note: A&P Assessment and Plan (1) Sepsis: Qualifiers: Sepsis type: sepsis due to unspecified organism Sepsis acute organ dysfunction status: with acute organ dysfunction Severe sepsis acute organ dysfunction type: encephalopathy Code(s): A41.9 - Sepsis, unspecified organism Status: Acute Assessment and Plan: Sepsis criteria met with leukocytosis, tachycardia, tachypnea and lactic acidosis. Sepsis possibly due to meningitis given elevated protein noted in CSF. Other differential includes possible bacteremia given the patient's chronic foot wounds. Patient has been started on antibiotic therapy with vancomycin and acyclovir. Blood cultures and CSF cultures are pending. Bacterial meningitis less likely given elevated CSF glucose and appearance of fluid. The patient does have chronic leukocytosis some of his leukocytosis could be due to chronic myelodysplastic process. Will repeat CBC in a.m. and monitor for signs of infection including fever. Lactic acidosis has resolved after IV fluid hydration continue maintenance fluids at 75 mL an hour. Monitor strict I&O's given patient's history of CHF. 11/24/2022 interval history: today patient patient is more awake states feels better denies any fever or chills,not as comfused, one bottle of blood culture is growing Staphylococcus epidermis suspect contamination, patient with persistent elevated white counts is due patient history of myelodysplasia and splenectomy, discussed with ID pharmacist will switch Levaquin IV to PO, to complete the course will follow-up on blood and spinal fluid culture for HSV PCR is negative will stop acyclovir, and enterovirus RNA RT- PCR is pending, patient is having difficulty with ambulation, patient will benefit going to SNF rehab, will have a PT OT to evaluate the patient and further recommendation to follow. (2) Encephalopathy: Code(s): G93.40 - Encephalopathy, unspecified Status: Acute Assessment and Plan: Likely due to a combination of sepsis possible meningitis verses some medication effect from polypharmacy. The patient is on multiple benzodiazepines at home including Flexeril, diazepam and Ambien. Will limit benzodiazepines by eliminating the Flexeril and Ambien. Will continue home diazepam. Monitor neuro status closely. (3) Wound of lower extremity: Qualifiers: Encounter type: initial encounter Laterality: left Qualified Code(s): S81.802A - Unspecified open wound, left lower leg, initial encounter Code(s): S81.809A - Unspecified open wound, unspecified lower leg, initial encounter Status: Acute Assessment and Plan: Wounds are clean and dry without evidence of acute infection. Will monitor (4) Acute kidney injury superimposed on CKD: Code(s): N17.9 - Acute kidney failure, unspecified; N18.9 - Chronic kidney disease, unspecified Status: Acute Assessment and Plan: Patient has chronic kidney disease listed however appears that the patient actually seems to have more episodes of acute kidney injury that usually resolves. He again has acute kidney injury likely due to sepsis and hypovolemia. Will repeat BMP in a.m. and monitor I&O's closely. The patient may also have some component of obstructive uropathy as he was unable to urinate in the ER in head of coude catheter placed with return of 600 mL of urine. Will continue home medications for BPH. (5) Diastolic heart failure: Code(s): I50.30 - Unspecified diastolic (congestive) heart failure Status: Acute Assessment and Plan: As discussed above (6) Type 2 diabetes mellitus with hyperglycemia, with long-term current use of insulin: Code(s): E11.65 - Type 2 diabetes mellitus with hyperglycemia; Z79.4 - extermination inspector (current) use of insulin Status: Acute Assessment and Plan: Will place patient on sliding scale insulin with Accu-Cheks a.c. HS. Will change diet
[2022-11-24] MEDS: levoFLOXacin 750 MG TABLET PO (16:57)
[2022-11-24 17:13] LABS: Glucose Point of Care 144 mg/dl (65-105)
[2022-11-24 20:47] LABS: Glucose Point of Care 169 mg/dl (65-105)
[2022-11-24] MEDS: PRAVASTATIN SODIUM 20 MG TABLET 40 MG PO (21:22)
[2022-11-24] MEDS: ZOLPIDEM TARTRATE (*CRX) 5 MG TABLET PO (21:22)
[2022-11-24] MEDS: diazePAM (*CRX) 2 MG TABLET PO (21:22)
[2022-11-24] MEDS: SENNA/DOCUSATE SODIUM TABLET 2 TAB PO (21:22)
[2022-11-24] MEDS: MONTELUKAST SODIUM 10 MG TABLET PO (21:23)
[2022-11-25] VITALS (13 sets, daily range): BP systolic 130–153; BP diastolic 74–84; PULSE 81–105; RESP 18–20; TEMP 36.4–36.8; O2SAT 96–99
[2022-11-25] MEDS: ACETAMINOPHEN 325 MG TABLET 650 MG PO (00:59)
[2022-11-25 05:19] LABS: Hematocrit 35.4 % (42.0-52.0); Mean Corpuscular HGB Conc 33.9 g/dl (32-36); Mean Corpuscular Hemoglobin 31.5 pg (26-34); Mean Corpuscular Volume 92.9 fl (80-100); Mean Platelet Volume 11.2 fl (7.4-10.4); Platelet Count Result 672 k/mm3 (150-375); Red Blood Count 3.81 M/mm3 (4.6-6.20); Red Cell Distribution Width 14.7 % (11.5-14.5); White Blood Count 18.2 K/mm3 (4.5-10.0)
[2022-11-25 05:30] LABS: Anion Gap 4 mmol/L (8-16); Blood Urea Nitrogen 17 mg/dL (9-20); Calcium 8.9 mg/dL (8.4-10.2); Carbon Dioxide 25 mmol/L (22-30); Chloride 109 mmol/L (98-107); Estimated CRCL calculation 71 ml/min; Estimated Glomerular Filt Rate > 60; Glucose 85 mg/dL (65-110); Magnesium 1.3 mg/dL (1.6-2.3); Potassium 4.1 mmol/L (3.4-5.0); Sodium 138 mmol/L (137-145)
[2022-11-25] MEDS: MAGNESIUM SULF 4 GM/WATER100ML 4 GM/100 ML BAG IVPB (08:27)
[2022-11-25] MEDS: PREGABALIN (*CRX) 50 MG CAPSULE 100 MG PO ×2 (08:27→20:06)
[2022-11-25 08:28] LABS: Glucose Point of Care 88 mg/dl (65-105)
[2022-11-25] MEDS: METOPROLOL SUCCINATE EXT REL 25 MG TABCR PO ×2 (08:28→20:06)
[2022-11-25] MEDS: VENLAFAXINE HCL 37.5 MG TABLET PO ×2 (08:28→20:06)
[2022-11-25] MEDS: APIXABAN 5 MG TABLET PO ×2 (08:28→20:06)
[2022-11-25] MEDS: MAGNESIUM OXIDE 400 MG TABLET PO ×2 (08:28→18:23)
[2022-11-25] MEDS: FENOFIBRATE 160 MG TABLET PO (08:28)
[2022-11-25] MEDS: FINASTERIDE 5 MG TABLET PO (08:29)
[2022-11-25] MEDS: NEOMYCIN/POLYMYXIN/BACITRACIN OINTMENT 15 GM TUBE 1 APPLIC TOPICAL (08:30)
[2022-11-25] MEDS: INSULIN GLARGINE (*BKC) 100 UNITS/ML 40 UNITS SUB-Q (08:30)
[2022-11-25] MEDS: SODIUM CHLORIDE 0.9% IV 1,000 ML 75 ML IV CONT (08:31)
[2022-11-25] MEDS: FLUTICASONE/SALMETEROL 115-21 MCG INHALER 1 PUFF 2 PUFF INHALATION ×2 (09:34→22:43)
--- NOTE | 2022-11-25 09:55 | PM.IMPN ---
Progress Note: A&P Assessment and Plan (1) Sepsis: Qualifiers: Sepsis type: sepsis due to unspecified organism Sepsis acute organ dysfunction status: with acute organ dysfunction Severe sepsis acute organ dysfunction type: encephalopathy Code(s): A41.9 - Sepsis, unspecified organism Status: Acute Assessment and Plan: 11/25/22 09:55 Sepsis criteria met with leukocytosis, tachycardia, tachypnea and lactic acidosis. Sepsis possibly due to meningitis given elevated protein noted in CSF. Other differential includes possible bacteremia given the patient's chronic foot wounds. Patient has been started on antibiotic therapy with vancomycin and acyclovir. Blood cultures and CSF cultures are pending. Bacterial meningitis less likely given elevated CSF glucose and appearance of fluid. The patient does have chronic leukocytosis some of his leukocytosis could be due to chronic myelodysplastic process. Will repeat CBC in a.m. and monitor for signs of infection including fever. Lactic acidosis has resolved after IV fluid hydration continue maintenance fluids at 75 mL an hour. Monitor strict I&O's given patient's history of CHF. 11/25/2022 interval history: today patient is more awake states feels better denies any fever or chills,not as comfused, one bottle of blood culture is growing Staphylococcus epidermis suspect contamination, patient with persistent elevated white counts is due patient history of myelodysplasia and splenectomy, discussed with ID pharmacist will switch Levaquin IV to PO, to complete the course will follow-up on blood and spinal fluid culture no growth so far, for HSV PCR is negative will stop acyclovir, and enterovirus RNA RT- PCR is pending, patient is imroving it is unlikely patient has enteroccous, patient is having difficulty with ambulation, patient will benefit going to SNF rehab, will have a PT OT to evaluate the patient and further recommendation to follow. (2) Encephalopathy: Code(s): G93.40 - Encephalopathy, unspecified Status: Acute Assessment and Plan: Likely due to a combination of sepsis possible meningitis verses some medication effect from polypharmacy. The patient is on multiple benzodiazepines at home including Flexeril, diazepam and Ambien. Will limit benzodiazepines by eliminating the Flexeril and Ambien. Will continue home diazepam. Monitor neuro status closely. (3) Wound of lower extremity: Qualifiers: Encounter type: initial encounter Laterality: left Qualified Code(s): S81.802A - Unspecified open wound, left lower leg, initial encounter Code(s): S81.809A - Unspecified open wound, unspecified lower leg, initial encounter Status: Acute Assessment and Plan: Wounds are clean and dry without evidence of acute infection. Will monitor (4) Acute kidney injury superimposed on CKD: Code(s): N17.9 - Acute kidney failure, unspecified; N18.9 - Chronic kidney disease, unspecified Status: Acute Assessment and Plan: Patient has chronic kidney disease listed however appears that the patient actually seems to have more episodes of acute kidney injury that usually resolves. He again has acute kidney injury likely due to sepsis and hypovolemia. Will repeat BMP in a.m. and monitor I&O's closely. The patient may also have some component of obstructive uropathy as he was unable to urinate in the ER in head of coude catheter placed with return of 600 mL of urine. Will continue home medications for BPH. (5) Diastolic heart failure: Code(s): I50.30 - Unspecified diastolic (congestive) heart failure Status: Acute Assessment and Plan: As discussed above (6) Type 2 diabetes mellitus with hyperglycemia, with long-term current use of insulin: Code(s): E11.65 - Type 2 diabetes mellitus with hyperglycemia; Z79.4 - emt intermediate (current) use of insulin Status: Acute Assessment and Rey
[2022-11-25 12:43] LABS: Glucose Point of Care 164 mg/dl (65-105)
[2022-11-25] MEDS: MAGNESIUM HYDROXIDE SUSP 30 ML UDC PO (14:45)
[2022-11-25 17:19] LABS: Glucose Point of Care 202 mg/dl (65-105)
[2022-11-25] MEDS: INSULIN ASPART (*BKC) 100 UNITS/ML SUB-Q (18:23)
[2022-11-25] MEDS: INSULIN ASPART (*BKC) 100 UNITS/ML 12 UNITS SUB-Q (18:23)
[2022-11-25] MEDS: levoFLOXacin 750 MG TABLET PO (18:24)
[2022-11-25] MEDS: PRAVASTATIN SODIUM 20 MG TABLET 40 MG PO (20:06)
[2022-11-25] MEDS: SENNA/DOCUSATE SODIUM TABLET 2 TAB PO (20:06)
[2022-11-25] MEDS: MONTELUKAST SODIUM 10 MG TABLET PO (20:06)
[2022-11-25 20:51] LABS: Glucose Point of Care 186 mg/dl (65-105)
[2022-11-25] MEDS: ZOLPIDEM TARTRATE (*CRX) 5 MG TABLET PO (22:00)
[2022-11-26] MEDS: SODIUM CHLORIDE 0.9% IV 1,000 ML 75 ML IV CONT (00:17)
[2022-11-26 00:27] VITALS: PULSE 94
[2022-11-26 04:07] VITALS: PULSE 84
[2022-11-26 05:29] LABS: Hematocrit 37.4 % (42.0-52.0); Hemoglobin 12.5 g/dL (14.0-18.0); Mean Corpuscular HGB Conc 33.4 g/dl (32-36); Mean Corpuscular Hemoglobin 31.8 pg (26-34); Mean Corpuscular Volume 95.2 fl (80-100); Mean Platelet Volume 10.9 fl (7.4-10.4); Platelet Count Result 659 k/mm3 (150-375); Red Blood Count 3.93 M/mm3 (4.6-6.20); Red Cell Distribution Width 14.8 % (11.5-14.5); White Blood Count 20.6 K/mm3 (4.5-10.0)
[2022-11-26 05:43] LABS: Anion Gap 3 mmol/L (8-16); Blood Urea Nitrogen 20 mg/dL (9-20); Calcium 8.9 mg/dL (8.4-10.2); Carbon Dioxide 26 mmol/L (22-30); Chloride 104 mmol/L (98-107); Estimated CRCL calculation 66 ml/min; Estimated Glomerular Filt Rate > 60; Glucose 109 mg/dL (65-110); Magnesium 1.8 mg/dL (1.6-2.3); Potassium 4.2 mmol/L (3.4-5.0); Sodium 133 mmol/L (137-145)
[2022-11-26 05:55] VITALS: BP 131/74; PULSE 84; RESP 18; TEMP 36.7; O2SAT 97
[2022-11-26 08:13] LABS: Glucose Point of Care 102 mg/dl (65-105)
[2022-11-26] MEDS: FLUTICASONE/SALMETEROL 115-21 MCG INHALER 1 PUFF 2 PUFF INHALATION (08:14)
[2022-11-26 08:15] VITALS: O2SAT 97
[2022-11-26 09:00] VITALS: O2SAT 97
--- NOTE | 2022-11-26 09:11 | P.DS_ITS ---
DS: Admitting Diagnosis Discharge Date 11/26/2022 Admitting Diagnosis Fall, altered mental status DS: Discharge Diagnosis Discharge Diagnosis (1) Sepsis: Qualifiers: Sepsis type: sepsis due to unspecified organism Sepsis acute organ dysfunction status: with acute organ dysfunction Severe sepsis acute organ dysfunction type: encephalopathy Code(s): A41.9 - Sepsis, unspecified organism Status: Acute Assessment and Plan: 11/25/22 09:55 Sepsis criteria met with leukocytosis, tachycardia, tachypnea and lactic acidosis. Sepsis possibly due to meningitis given elevated protein noted in CSF. Other differential includes possible bacteremia given the patient's chronic foot wounds. Patient has been started on antibiotic therapy with vancomycin and acyclovir. Blood cultures and CSF cultures are pending. Bacterial meningitis less likely given elevated CSF glucose and appearance of fluid. The patient does have chronic leukocytosis some of his leukocytosis could be due to chronic myelodysplastic process. Will repeat CBC in a.m. and monitor for signs of infection including fever. Lactic acidosis has resolved after IV fluid hydration continue maintenance fluids at 75 mL an hour. Monitor strict I&O's given patient's history of CHF. 11/25/2022 interval history: today patient is more awake states feels better denies any fever or chills,not as comfused, one bottle of blood culture is growing Staphylococcus epidermis suspect contamination, patient with persistent elevated white counts is due patient history of myelodysplasia and splenectomy, discussed with ID pharmacist will switch Levaquin IV to PO, to complete the course will follow-up on blood and spinal fluid culture no growth so far, for HSV PCR is negative will stop acyclovir, and enterovirus RNA RT- PCR is pending, patient is imroving it is unlikely patient has enteroccous, patient is having difficulty with ambulation, patient will benefit going to SNF rehab, will have a PT OT to evaluate the patient and further recommendation to follow. (2) Encephalopathy: Code(s): G93.40 - Encephalopathy, unspecified Status: Acute Assessment and Plan: Likely due to a combination of sepsis possible meningitis verses some medication effect from polypharmacy. The patient is on multiple benzodiazepines at home including Flexeril, diazepam and Ambien. Will limit benzodiazepines by eliminating the Flexeril and Ambien. Will continue home diazepam. Monitor neuro status closely. (3) Wound of lower extremity: Qualifiers: Encounter type: initial encounter Laterality: left Qualified Code(s): S81.802A - Unspecified open wound, left lower leg, initial encounter Code(s): S81.809A - Unspecified open wound, unspecified lower leg, initial encounter Status: Acute Assessment and Plan: Wounds are clean and dry without evidence of acute infection. Will monitor (4) Acute kidney injury superimposed on CKD: Code(s): N17.9 - Acute kidney failure, unspecified; N18.9 - Chronic kidney disease, unspecified Status: Acute Assessment and Plan: Patient has chronic kidney disease listed however appears that the patient actually seems to have more episodes of acute kidney injury that usually resolves. He again has acute kidney injury likely due to sepsis and hypovolemia. Will repeat BMP in a.m. and monitor I&O's closely. The patient may also have some component of obstructive uropathy as he was unable to urinate in the ER in head of coude catheter placed with return of 600 mL of urine. Will continue home medications for BPH. (5) Diastolic
[2022-11-26] MEDS: FENOFIBRATE 160 MG TABLET PO (09:48)
[2022-11-26] MEDS: APIXABAN 5 MG TABLET PO (09:48)
[2022-11-26] MEDS: FINASTERIDE 5 MG TABLET PO (09:48)
[2022-11-26] MEDS: LIDOCAINE 5% PATCH 1 PATCH TRANSDERM (09:49)
[2022-11-26] MEDS: VENLAFAXINE HCL 37.5 MG TABLET PO (09:54)
[2022-11-26] MEDS: PREGABALIN (*CRX) 50 MG CAPSULE 100 MG PO (09:54)
[2022-11-26 09:55] VITALS: PULSE 90
[2022-11-26] MEDS: METOPROLOL SUCCINATE EXT REL 25 MG TABCR PO (09:55)
[2022-11-26] MEDS: NEOMYCIN/POLYMYXIN/BACITRACIN OINTMENT 15 GM TUBE 1 APPLIC TOPICAL (09:55)
[2022-11-26] MEDS: INSULIN GLARGINE (*BKC) 100 UNITS/ML 40 UNITS SUB-Q (09:56)
[2022-11-26] MEDS: MAGNESIUM OXIDE 400 MG TABLET PO (11:55)
[2022-11-26 12:14] LABS: EDCOVIDSCREEN Negative (Negative)
[2022-11-26 12:24] LABS: Glucose Point of Care 183 mg/dl (65-105)
== END 2022-11-26 14:35 | DRG 871 ==
LOC: ANHED 18:27 → ANHIMU 22:07 → ANH3MED 11-22 16:08
PROVIDERS: Admitting Provider Internal Medicine; Emergency Provider Emergency Medicine; PCP Internal Medicine; Visit Provider Family Medicine
DX: A41.9 Sepsis, unspecified organism (principal); G93.41 Metabolic encephalopathy; N17.9 Acute kidney failure, unspecified; I13.0 Hypertensive heart and chronic kidney disease with heart failure and stage 1 through stage 4 chronic kidney disease, or unspecified chronic kidney disease; I50.32 Chronic diastolic (congestive) heart failure; I69.359 Hemiplegia and hemiparesis following cerebral infarction affecting unspecified side; R65.20 Severe sepsis without septic shock; T42.4X5A Adverse effect of benzodiazepines, initial encounter; T48.1X5A Adverse effect of skeletal muscle relaxants [neuromuscular blocking agents], initial encounter; Z20.822 Contact with and (suspected) exposure to COVID-19; D63.1 Anemia in chronic kidney disease; D46.9 Myelodysplastic syndrome, unspecified; E11.65 Type 2 diabetes mellitus with hyperglycemia; E11.22 Type 2 diabetes mellitus with diabetic chronic kidney disease; E11.40 Type 2 diabetes mellitus with diabetic neuropathy, unspecified; F41.9 Anxiety disorder, unspecified; F32.A Depression, unspecified; G47.33 Obstructive sleep apnea (adult) (pediatric); J44.9 Chronic obstructive pulmonary disease, unspecified; N13.9 Obstructive and reflux uropathy, unspecified; N40.0 Benign prostatic hyperplasia without lower urinary tract symptoms; N18.9 Chronic kidney disease, unspecified; S81.802D Unspecified open wound, left lower leg, subsequent encounter; Z28.21 Immunization not carried out because of patient refusal; Z91.199 Patient's noncompliance with other medical treatment and regimen due to unspecified reason; Z86.14 Personal history of Methicillin resistant Staphylococcus aureus infection; Z79.4 Long term (current) use of insulin; Z79.01 Long term (current) use of anticoagulants; Z86.711 Personal history of pulmonary embolism; Z89.412 Acquired absence of left great toe; Z89.411 Acquired absence of right great toe; Z90.49 Acquired absence of other specified parts of digestive tract; Z90.81 Acquired absence of spleen
CPT/HCPCS: 36415; 36600; 62328; 70450; 71045; 80048; 80053; 80202; 80307; 81001; 82010; 82140; 82375; 82565; 82805; 82945; 82948; 83050; 83605; 83735; 84157; 84443; 84484; 85025; 85027; 85610; 85730; 87040; 87070; 87102; 87147; 87181; 87186; 87206; 87255; 87426; 87498; 87529; 87637; 89051; 93005; 94640; 96365; 96366; 96367; 96375; 97110; 97161; 97165; 97530; 97535; 99285; A9270; C9803; J0133; J1815; J1956; J2543; J3370; J3475; J7030; J7060

== ENCOUNTER 2022-12-23 21:30 | Inpatient (IN) | payer MEDICARE, SELFPAY ==
--- NOTE | ~2022-12-23 | CT_ITS ---
EXAMINATION: CT abdomen pelvis wo con DATE: 12/23/2022 22:29 INDICATION: Eval SBO/Bowel rupture TECHNIQUE: Computed tomography (CT) of the abdomen and pelvis was performed without intravenous contr ast. Automated exposure control and iterative reconstruction technique were employed. The dose-length product was 1433.42 mGy-cm. COMPARISON: 04/10/2021. FINDINGS: Considerable motion artifact present. Lower thorax: Minimal left gynecomastia, right nipple excluded from the [id number]. Mild coronary mitral and aortic calcification. Calcified hamartoma or granuloma in the right middle lobe. Bibasilar scar/atelectasis. Liver: Normal. Biliary/Gallbladder: Gallbladder is absent. No bile duct dilation. Pancreas: Fatty infiltration. Spleen: The spleen is absent. Adrenals:5.2 cm myelolipoma on the left Kidneys: Moderate bilateral perinephric stranding. No suspicious mass. 3 mm left inferior pole nonobs tructing calculus. Mild bilateral ureterectasis. GI tract: No small or large bowel dilation. Normal appendix. Mesentery/Peritoneum: No ascites, mass, or free air. Retroperitoneum: No mass. Atherosclerotic abdominal aortic and/or arterial calcifications. Pelvis: Marked urinary bladder distention. Urinary catheter, balloon in the membranous urethra.. Soft Tissues: Soft tissues and body wall unremarkable. Bones: No acute osseous finding. IMPRESSION: Malpositioned urinary catheter with the balloon in the membranous urethra, causing marked urinary sunday dder distention and bilateral ureterectasis, recommend removal and replacement. Reviewed, dictated and finalized at location K. LE SCHOOL ASSISTANT PRINCIPAL IMPRESSION: Malpositioned urinary catheter with the balloon in the membranous urethra, caus ing marked urinary bladder distention and bilateral ureterectasis, recommend re moval and replacement.
--- NOTE | ~2022-12-23 | US_ITS ---
EXAMINATION: US renal BI DATE: 12/24/2022 15:22 INDICATION: Hydronephrosis. TECHNIQUE: Multiple ultrasound grayscale images of the kidneys were obtained. COMPARISON: CT abdomen and pelvis 12/23/2022 FINDINGS: The right kidney measures 12.2 x 5.4 x 6.3 cm. The left kidney measures 12.2 x 4.6 x 7.5 cm. The kidn eys demonstrate normal parenchymal echogenicity. There is no hydronephrosis. The Leigh catheter is in normal position in the bladder, which is normal. IMPRESSION: 1. Normal kidneys. No hydronephrosis. Reviewed, dictated and finalized at location A. EY OPERATOR [employer]ATE
--- NOTE | ~2022-12-23 | XR_ITS ---
EXAMINATION: XR chest 1V portable Exam Date/Time: 12/23/2022 22:10 REGISTERED NURSE CARDIAC HISTORY: Dyspnea. Distended abdomen Comparison: 11/19/2022, CT abdomen and pelvis, same date. RESULT: Lines, tubes, and devices: Cholecystectomy clips. Lungs and pleura: Bibasilar atelectasis, otherwise clear. Cardiomediastinal silhouette: Stable. Other: No acute osseous or upper abdominal finding. IMPRESSION: No acute cardiopulmonary process. Reviewed, dictated and finalized at location K. STERED NURSE CARDIAC
--- NOTE | ~2022-12-23 | CT_ITS ---
Clinical Indication: Leukocytosis CT Scan of the Chest, Abdomen, and Pelvis without Contrast: Technique: Contiguous sections were acquired throughout the chest, abdomen, and pelvis without IV con trast administration. Dose reduction technique was used on this scan by utilizing automated exposure control and iterative reconstruction technique. The dose-length product (DLP) was 1544.47 mGy-cm. COMPARISON: 12/23/2022 Findings: There is no evidence of any significant mediastinal, hilar or axillary lymphadenopathy. The mediastin al soft tissues appear normal. There is no evidence of pleural or pericardial effusion. The lungs are clear, aside from calcified right middle lobe granuloma. The liver, spleen, pancreas, right adrenal gland, and right kidney are within normal limits. Cholecys tectomy clips noted. 3 mm nonobstructing left renal stone noted. 5 cm left adrenal myelolipoma noted. No evidence of aortic aneurysm. No lymphadenopathy. No bowel obstruction or bowel wall thickening. There is no evidence to suggest acute appendicitis. Leigh catheter present in the urinary bladder. Prostate gland and seminal vesicles are unremarkable. Impression: No acute abnormality evident. 3 mm nonobstructing left renal stone. Stable 5 cm left adrenal myelolipoma. Reviewed, dictated and finalized at [facility]. Impression: No acute abnormality evident. 3 mm nonobstructing left renal stone. Stable 5 cm left adrenal myelolipoma.
[2022-12-23 21:29] VITALS: BP 131/59; PULSE 108; RESP 20; TEMP 37.6; O2SAT 90
--- NOTE | 2022-12-23 21:43 | ECG_ITS ---
Measurements Intervals [place] Rate: 110 P: 30 LA: 158 QRS: 10 QRSD: 112 T: 65 QT: 328 QTc: 445 Interpretive Statements SINUS TACHYCARDIA VENTRICULAR TRIGEMINY INTRAVENTRICULAR CONDUCTION DELAY BORDERLINE ST-T WAVE ABNORMALITY- HIGH LATERAL LEADS ABNORMAL ECG COMPARED TO ECG 11/19/2022 16:27:37 NO SIGNIFICANT CHANGES Electronically Signed On 12-24-2022 6:37:46 [employer] by Phillip Rodriguez D.O.
--- NOTE | 2022-12-23 22:17 | ED.GENADULT ---
HPI - General Adult General Chief complaint: Nausea/Vomiting/Diarrhea Stated complaint: N/V Time Seen by Provider: 12/23/22 21:33 History of Present Illness HPI narrative: Patient is a poor historian. This a 62-year-old male from [facility] presenting ED with chief complaint of nausea and vomiting. Patient has been vomiting for 2-3 days. He also has a distended abdomen. He says his last bowel movement was earlier today. patient is denying fever, chills, chest pain, difficulty breathing, or urinary complaints. Related Data Home Medications Medication Instructions Recorded Confirmed budesonide-formoterol HFA 160 2 puff inhalation Q12H 11/08/20 11/19/22 mcg-4.5 mcg/actuation aerosol inhaler (Symbicort) cholecalciferol (vitamin D3) 1,250 1,250 mcg PO WEEKLY 11/08/20 11/19/22 mcg (50,000 unit) capsule finasteride 5 mg tablet 5 mg PO DAILY 11/08/20 11/19/22 montelukast 10 mg tablet 10 mg PO HS 11/08/20 11/19/22 cyclobenzaprine 10 mg tablet 10 mg PO Q8H PRN Muscle Spasm 04/11/21 11/19/22 venlafaxine 37.5 mg tablet 37.5 mg PO Q12H 04/11/21 11/19/22 pregabalin 100 mg capsule (Lyrica) 100 mg PO Q12H 07/17/22 11/19/22 dulaglutide 0.75 mg/0.5 mL 0.75 mg subcut WEEKLY 08/26/22 11/19/22 subcutaneous pen injector fenofibrate micronized 200 mg 200 mg PO HS 08/26/22 11/19/22 capsule magnesium citrate (Citroma oral 300 ml PO DAILY PRN Constipation 08/26/22 11/19/22 solution) magnesium hydroxide 400 mg/5 mL 30 ml PO HS PRN Constipation 08/26/22 11/19/22 oral suspension (Milk of Magnesia) magnesium oxide 400 mg (241.3 mg 400 mg PO BID 08/26/22 11/19/22 magnesium) tablet pravastatin 40 mg tablet 40 mg PO HS 08/26/22 11/19/22 insulin aspart U-100 100 unit/mL 12 unit subcut TIDWM 11/19/22 11/19/22 (3 mL) subcutaneous pen (Novolog FlexPen U-100 Insulin aspart) insulin detemir U-100 100 unit/mL 40 unit subcut DAILY 11/19/22 11/19/22 (3 mL) subcutaneous pen (Levemir FlexTouch U-100 Insulin) Allergies Allergy/AdvReac Type Severity Reaction Status Date / Time naproxen Allergy Intermediate SWELLING Verified 08/26/22 05:45 cefepime Allergy Unknown Blister Verified 11/20/22 00:43 iohexol Allergy Unknown Unknown Verified 11/20/22 00:11 [From contrast - CT, X-RAY] morphine Allergy Unknown Vomiting Verified 11/20/22 00:43 [facility] Past Medical History Medical History Anemia Anxiety Benign prostatic hyperplasia Cerebrovascular accident (2014) Chronic kidney disease Claustrophobia Depression Diastolic heart failure Echo 08/2022: Mild concentric hypertrophy, systolic function 74%, grade 2 diastolic dysfunction, mild left atrial enlargement, right ventricle not well visualized but grossly normal Enterobacter sepsis Secondary to UTI. 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 Smoking status: Never smoker Tobacco type: cigars Smoking end date: 10/18/94 Alcohol intake: never Alcohol use details: 1/month Substance use:
[2022-12-23 23:06] LABS: Hematocrit 36.4 % (42.0-52.0); Hemoglobin 12.7 g/dL (14.0-18.0); Mean Corpuscular HGB Conc 34.9 g/dl (32-36); Mean Corpuscular Volume 91.7 fl (80-100); Mean Platelet Volume 10.7 fl (7.4-10.4); Platelet Count Result 549 k/mm3 (150-375); Red Blood Count 3.97 M/mm3 (4.6-6.20); Red Cell Distribution Width 13.2 % (11.5-14.5); White Blood Count 31.4 K/mm3 (4.5-10.0)
[2022-12-23 23:17] LABS: INR 1.3; Prothrombin Time 15.5 Seconds (11.1-14.7)
[2022-12-23 23:18] LABS: Partial Thromboplastin Time 39.6 SECONDS (22.3-36.8)
[2022-12-23] MEDS: SODIUM CHLORIDE 0.9% IV 1,000 ML 999 ML IV CONT (23:22)
[2022-12-23 23:23] LABS: Alanine Aminotransferase 30 U/L (6-50); Alkaline Phosphatase 71 U/L (38-126); Anion Gap 8 mmol/L (8-16); Aspartate Amino Transferase 45 U/L (17-59); Bilirubin,Total 0.7 mg/dL (0.2-1.3); Blood Urea Nitrogen 40 mg/dL (9-20); Calcium 8.7 mg/dL (8.4-10.2); Carbon Dioxide 28 mmol/L (22-30); Chloride 91 mmol/L (98-107); Estimated CRCL calculation 35 ml/min; Estimated Glomerular Filt Rate 30; Glucose 57 mg/dL (65-110); Lipase 41 U/L (23-300); Magnesium 1.5 mg/dL (1.6-2.3); Phosphorus 3.8 mg/dL (2.5-4.5); Potassium 3.9 mmol/L (3.4-5.0); Sodium 127 mmol/L (137-145)
[2022-12-23 23:27] LABS: Troponin I 0.017 ng/mL (0.000-0.034)
[2022-12-23] MEDS: DEXTROSE 50% 25 GM/50 ML SYRINGE IV PUSH (23:32)
[2022-12-23 23:35] LABS: NT Pro B Type Natriuretic Pept 618 pg/mL (19.9-100)
[2022-12-23 23:46] LABS: Appearance Urine Clear (Clear); Bacteria Urine None Seen /hpf; Bilirubin Urine Negative (Negative); Blood Urine 3+ (Negative); Color Urine Yellow (Yellow); Glucose Urine UA Negative (Negative); Ketones Urine Negative (Negative); Leukocyte Esterase Ur 2+ LEU/UL (Negative); Nitrate Urine Negative (Negative); Non Pathogenic Casts 0-2; Protein Urine 1+ mg/dL (Negative); RBC Urine >100 /hpf (0-2); Specific Grav Ur 1.013 (1.001-1.035); Squamous Epithelial Cell Urine None seen /hpf (Few); WBC Urine 21-50 /hpf; pH Urine 5.5 (5.0-9.0)
[2022-12-23 23:46] LABS: Influenza A QL RT-PCR Negative (Negative); Influenza B QL RT-PCR Negative (Negative); RSV RNA, RT-PCR Negative (Negative); SARS-CoV-2 RNA PCR Negative
[2022-12-23 23:53] LABS: Band Neutrophils Percent 7 % (0-6); Lymphocytes Absolute Manual 0.31 K/mm3 (1.1-4.5); Monocytes Absolute Manual 3.45 K/mm3 (0.1-0.90); Monocytes Percent Manual 11 % (3-9); Neutrophils Absolute Manual 27.63 K/mm3 (1.3-6.7); Neutrophils Percent Manual 81 % (46-73); Platelet Estimate Increased (Adequate); Total Cells Counted 100
[2022-12-23 23:54] LABS: Anisocytosis 1+ (NORMAL); Burr Cells 1+ (NORMAL); Poikilocytosis 1+ (NORMAL); Schistocytes None Seen (NORMAL)
[2022-12-23 23:55] LABS: Add Urine Microscopic? YES
[2022-12-24] VITALS (22 sets, daily range): BP systolic 106–141; BP diastolic 50–73; PULSE 76–101; RESP 13–20; TEMP 36–36.7; O2SAT 93–100; BMI 34.4
[2022-12-24 00:01] LABS: Lactic Acid Reflex 0.6 mmol/L (0.7-2.0)
[2022-12-24 00:11] LABS: Glucose Point of Care 131 mg/dl (65-105)
[2022-12-24 01:59] LABS: Glucose Point of Care 95 mg/dl (65-105)
[2022-12-24] MEDS: PIPERACILLN/TAZ 3.375GM/NS50ML 3.375 GM/50 ML BAG IVPB (03:03)
[2022-12-24 04:48] LABS: Glucose Point of Care 109 mg/dl (65-105)
--- NOTE | 2022-12-24 05:21 | ADMGEN ---
This patient, Jeremías Gaines, was admitted to IMU Room 201-01. Patient/family oriented to hospital policies and general routines including ID bracelet, bed and alarms, visiting hours, pain management, procedures, bathroom and other care routines, personal items, smoking policy, room service/diet, and visiting hours. Information on how to activate the Rapid Response Team has been discussed. Patient/Family are encouraged to report perceived risks to care and to ask questions if they do not understand what they are told or what they should do.
[2022-12-24 07:53] LABS: Glucose Point of Care 116 mg/dl (65-105)
[2022-12-24 12:40] LABS: Glucose Point of Care 175 mg/dl (65-105)
--- NOTE | 2022-12-24 13:26 | PCCCNOTE ---
On 12/24/22, the student, [Nikki Wilder ], provided care and completed [facility] documentation on this patient. I have reviewed the student's documentation and agree with the findings.
--- NOTE | 2022-12-24 14:35 | PM.IMHP ---
H&P: HPI History of Present Illness Date/Time: 12/24/22 14:35 Chief Complaint: nausea + vomiting Narrative: 62-year-old male from a nursing facility with past medical history significant for sleep apnea, heart failure, CVA with left-sided hemiplegia, CKD, diabetes is presenting with acute onset of nausea and vomiting for the last 2-3 days. He denies any other associated symptoms. He denies chest pain, shortness a breath, abdominal pain, dysuria, fevers or chills, decreased appetite. He does admit to hitting his left farley a few days ago in his wheelchair. Since then, he has had a wound that has gotten progressively more red and warm and tender. In the ER, the patient was noted to have significant leukocytosis as well as acute kidney injury and an abnormal urinalysis concerning for UTI. He was started on IV antibiotics and a Leigh was placed. CT abdomen and pelvis showed that the Leigh was actually in the urethra, this was retracted and replaced with a coude. Patient also had an episode of hypoglycemia with a glucose of 57 was given an amp of D50. Review of Systems Review of Systems: 12 point review of systems was assessed and was negative except as noted in the HPI PMFSH Past Medical History Medical History Anemia Anxiety Benign prostatic hyperplasia Cerebrovascular accident (2014) Chronic kidney disease Claustrophobia Depression Diastolic heart failure Echo 08/2022: Mild concentric hypertrophy, systolic function 74%, grade 2 diastolic dysfunction, mild left atrial enlargement, right ventricle not well visualized but grossly normal Enterobacter sepsis Secondary to UTI. Fracture of proximal end of left humerus Left cervical radiculopathy Migraines MRSA infection Myelofibrosis Neuropathy Obstructive sleep apnea Noncompliant with CPAP Pulmonary embolism (~01/2020) PVD (peripheral vascular disease) Type 2 diabetes mellitus Surgical History Surgical History Amputation of right forefoot Amputation of right great toe History of cholecystectomy History of hernia repair History of splenectomy (08/2019) Left great toe amputee (~04/2020) Partial Family History Family History Father , 75 Congestive heart failure Mother , 74 Brain bleed Sibling , Sister Cancer Dementia Social History Social History Social History: Surrogate medical decision maker: Humaira Schmidt (significant other) or Gloria Isaias (sister) Code status: Full code. Smoking packs per day: 0.5 Smoking cigarettes per day: 10.0 Years smoked: 40 Smoking pack-years: 20.00 Smoking status: Former smoker Tobacco type: cigars Smoking end date: 10/18/94 Alcohol intake: never Alcohol use details: 1/month Substance use: never Substance use type: marijuana Lack of Transportation: No Lack of Food: Never True Current Housing: I Have Housing Concerned About Future Housing: No Difficulty Paying Gas/Electric Bills: No Difficulty Paying for Meds: No Currently Unemployed: No Education: Decline to Answer Difficulty w/ Childcare or Family Care: No Living arrangements: with family Additional living arrangements comments: The patient lives with his girlfriend. Occupation/Education: other Additional occupation/education comments: On disability. Spiritual care concerns: No Agree to blood products: Yes Meds Home Medications and Allergies Home Medications Medication Instructions Recorded Confirmed Type budesonide-formoterol HFA 160 2 puff inhalation Q12H 11/08/20 12/24/22 History mcg-4.5 mcg/actuation aerosol inhaler (Symbicort) cholecalciferol (vitamin D3) 1,250 1,250 mcg PO WEEKLY 11/08/20 12/24/22 History mcg (50,000 unit) capsule
[2022-12-24 16:24] LABS: Basophils Absolute Auto 0.1 K/mm3 (0.0-0.1); Basophils Percent Auto 0.4 % (0.2-1.2); Eosinophils Absolute Auto 0.2 K/mm3 (0-0.3); Eosinophils Percent Auto 1.1 % (0-4.4); Hematocrit 35.9 % (42.0-52.0); Hemoglobin 12.3 g/dL (14.0-18.0); Immature Granulocyte Absolute 0.08 K/mm3 (0.00-0.031); Immature Granulocyte Percent A 0.4 % (0-0.5); Lymphocytes Absolute Auto 1.67 K/mm3 (0.9-3.2); Lymphocytes Percent Auto 8.4 % (18.3-44.2); Mean Corpuscular HGB Conc 34.3 g/dl (32-36); Mean Corpuscular Hemoglobin 31.1 pg (26-34); Mean Corpuscular Volume 90.9 fl (80-100); Mean Platelet Volume 11.2 fl (7.4-10.4); Monocytes Absolute Auto 1.8 K/mm3 (0.1-0.6); Neutrophils Absolute Auto 16.1 K/mm3 (1.3-6.7); Neutrophils Percent Auto 80.7 % (45.5-73.1); Platelet Count Result 569 k/mm3 (150-375); Red Blood Count 3.95 M/mm3 (4.6-6.20); Red Cell Distribution Width 13.2 % (11.5-14.5); White Blood Count 19.9 K/mm3 (4.5-10.0)
[2022-12-24 16:32] LABS: Alanine Aminotransferase 28 U/L (6-50); Albumin Level 3.5 g/dL (3.5-5.1); Alkaline Phosphatase 75 U/L (38-126); Anion Gap 3 mmol/L (8-16); Aspartate Amino Transferase 40 U/L (17-59); Bilirubin,Total 0.5 mg/dL (0.2-1.3); Blood Urea Nitrogen 31 mg/dL (9-20); Calcium 8.7 mg/dL (8.4-10.2); Carbon Dioxide 31 mmol/L (22-30); Chloride 100 mmol/L (98-107); Estimated CRCL calculation 52 ml/min; Estimated Glomerular Filt Rate 47; Glucose 265 mg/dL (65-110); Sodium 134 mmol/L (137-145)
[2022-12-24 17:07] LABS: CRP 19.4 mg/dL (<1.0)
[2022-12-24] MEDS: SODIUM CHLORIDE 0.9% IV 1,000 ML 999 ML IV CONT (17:25)
[2022-12-24 17:27] LABS: Glucose Point of Care 267 mg/dl (65-105)
[2022-12-24] MEDS: metroNIDAZOLE 500 MG/ISO 100ML 500 MG/100 ML BAG 100 MG IVPB ×2 (17:30→20:56)
[2022-12-24] MEDS: SODIUM CHLORIDE 0.9% IV 1,000 ML 100 ML IV CONT (17:59)
[2022-12-24] MEDS: AZTREONAM 2 GM in SODIUM CHLORIDE 0.9% IV 100 ML 200 ML IVPB ×2 (18:00→23:05)
[2022-12-24] MEDS: MAGNESIUM OXIDE 400 MG TABLET PO (18:04)
[2022-12-24] MEDS: INSULIN ASPART (*BKC) 100 UNITS/ML 12 UNITS SUB-Q (18:10)
[2022-12-24 18:21] LABS: Procalcitonin 1.4 ng/mL
[2022-12-24 20:16] LABS: Glucose Point of Care 191 mg/dl (65-105)
[2022-12-24] MEDS: FLUTICASONE/SALMETEROL 115-21 MCG INHALER 1 PUFF 2 PUFF INHALATION (20:26)
[2022-12-24] MEDS: VENLAFAXINE HCL 37.5 MG TABLET PO (20:50)
[2022-12-24] MEDS: MONTELUKAST SODIUM 10 MG TABLET PO (20:50)
[2022-12-24] MEDS: GABAPENTIN 300 MG CAPSULE PO (20:50)
[2022-12-24] MEDS: FENOFIBRATE 160 MG TABLET PO (20:51)
[2022-12-24] MEDS: APIXABAN 5 MG TABLET PO (20:52)
[2022-12-24] MEDS: METOPROLOL SUCCINATE EXT REL 25 MG TABCR PO (20:52)
[2022-12-24] MEDS: ACETAMINOPHEN 325 MG TABLET 650 MG PO (20:53)
[2022-12-24] MEDS: ZOLPIDEM TARTRATE (*CRX) 5 MG TABLET 10 MG PO (20:55)
[2022-12-24] MEDS: PREGABALIN (*CRX) 50 MG CAPSULE 100 MG PO (20:55)
[2022-12-24] MEDS: diazePAM (*CRX) 2 MG TABLET PO (20:56)
[2022-12-25] VITALS (18 sets, daily range): BP systolic 112–160; BP diastolic 53–89; PULSE 76–102; RESP 18–24; TEMP 36–36.8; O2SAT 77–100
--- NOTE | 2022-12-25 00:06 | PC.NURSE ---
PATIENT PULLED OUT BOTH HIS IV'S. HE STATED THAT HE DIDN'T NEED THEM ANYMORE.
[2022-12-25 05:00] LABS: Basophils Absolute Auto 0.1 K/mm3 (0.0-0.1); Basophils Percent Auto 0.7 % (0.2-1.2); Eosinophils Absolute Auto 0.6 K/mm3 (0-0.3); Eosinophils Percent Auto 3.8 % (0-4.4); Hematocrit 33.9 % (42.0-52.0); Hemoglobin 11.5 g/dL (14.0-18.0); Immature Granulocyte Absolute 0.07 K/mm3 (0.00-0.031); Immature Granulocyte Percent A 0.4 % (0-0.5); Lymphocytes Absolute Auto 2.53 K/mm3 (0.9-3.2); Lymphocytes Percent Auto 16.1 % (18.3-44.2); Mean Corpuscular HGB Conc 33.9 g/dl (32-36); Mean Corpuscular Hemoglobin 31.2 pg (26-34); Mean Corpuscular Volume 91.9 fl (80-100); Mean Platelet Volume 11.2 fl (7.4-10.4); Monocytes Absolute Auto 1.9 K/mm3 (0.1-0.6); Monocytes Percent Auto 12.3 % (2.6-8.5); Neutrophils Absolute Auto 10.5 K/mm3 (1.3-6.7); Neutrophils Percent Auto 66.7 % (45.5-73.1); Nucleated Red Blood Cells Perc 0.1 % (0.0-0.2); Platelet Count Result 523 k/mm3 (150-375); Red Blood Count 3.69 M/mm3 (4.6-6.20); Red Cell Distribution Width 13.4 % (11.5-14.5); White Blood Count 15.7 K/mm3 (4.5-10.0)
[2022-12-25 05:17] LABS: Alanine Aminotransferase 24 U/L (6-50); Albumin Level 3.3 g/dL (3.5-5.1); Alkaline Phosphatase 67 U/L (38-126); Anion Gap 0 mmol/L (8-16); Aspartate Amino Transferase 31 U/L (17-59); Bilirubin,Total 0.4 mg/dL (0.2-1.3); Blood Urea Nitrogen 23 mg/dL (9-20); Calcium 8.5 mg/dL (8.4-10.2); Carbon Dioxide 29 mmol/L (22-30); Chloride 103 mmol/L (98-107); Estimated CRCL calculation 64 ml/min; Estimated Glomerular Filt Rate > 60; Glucose 191 mg/dL (65-110); Sodium 132 mmol/L (137-145)
[2022-12-25 05:20] LABS: Hemoglobin A1C 7.2 % (<5.7)
--- NOTE | 2022-12-25 07:20 | PC.NURSE ---
VASCULAR ASSESS CAME IN TO TRY TO PLACE AN IV. PATIENT WAS HATEFUL TO HER. ONCE SHE PLACED AN IV, HE DEMANDED THAT SHE REMOVE IT AND PLACE IT IN HIS OTHER ARM.
[2022-12-25 08:08] LABS: Glucose Point of Care 168 mg/dl (65-105)
[2022-12-25] MEDS: INSULIN GLARGINE (*BKC) 100 UNITS/ML 40 UNITS SUB-Q (08:39)
[2022-12-25] MEDS: INSULIN ASPART (*BKC) 100 UNITS/ML 12 UNITS SUB-Q ×3 (08:39→16:39)
[2022-12-25] MEDS: FLUTICASONE/SALMETEROL 115-21 MCG INHALER 1 PUFF 2 PUFF INHALATION ×2 (08:50→20:30)
[2022-12-25] MEDS: ACETAMINOPHEN 325 MG TABLET 650 MG PO (09:00)
[2022-12-25] MEDS: diazePAM (*CRX) 2 MG TABLET PO ×2 (09:01→20:47)
[2022-12-25] MEDS: PREGABALIN (*CRX) 50 MG CAPSULE 100 MG PO ×2 (09:02→20:47)
[2022-12-25] MEDS: MAGNESIUM OXIDE 400 MG TABLET PO ×2 (09:02→16:44)
[2022-12-25] MEDS: APIXABAN 5 MG TABLET PO ×2 (09:02→20:50)
[2022-12-25] MEDS: VENLAFAXINE HCL 37.5 MG TABLET PO ×2 (09:03→20:54)
[2022-12-25] MEDS: METOPROLOL SUCCINATE EXT REL 25 MG TABCR PO ×2 (09:03→20:52)
--- NOTE | 2022-12-25 11:15 | PM.IMPN ---
Progress Note: A&P Assessment and Plan (1) Sepsis: Code(s): A41.9 - Sepsis, unspecified organism Status: Acute Assessment and Plan: Sepsis likely from skin wound on left tibia Follow-up blood cultures, 2/2 blood cultures growing gram-positive cocci, 1/2 growing gram-positive bacilli Appreciate wound consult and requested wound culture Started on IV antibiotics with vancomycin, aztreonam and flagyl, started on 12/24, will d/c aztreonam today, cont vanc + flagyl, transition Flagyl to oral Leukocytosis improving (2) Hemiplegia: Code(s): G81.90 - Hemiplegia, unspecified affecting unspecified side Status: Acute Assessment and Plan: Stable, PT/OT consultation (3) Type 2 diabetes mellitus with hyperglycemia, with long-term current use of insulin: Code(s): E11.65 - Type 2 diabetes mellitus with hyperglycemia; Z79.4 - roasterman (current) use of insulin Status: Acute Assessment and Plan: Accu-Cheks, sliding scale insulin, continue home medications, check A1c (4) Diastolic heart failure: Code(s): I50.30 - Unspecified diastolic (congestive) heart failure Status: Acute Assessment and Plan: Appears euvolemic at this time (5) Acute kidney injury superimposed on CKD: Code(s): N17.9 - Acute kidney failure, unspecified; N18.9 - Chronic kidney disease, unspecified Status: Acute Assessment and Plan: Appears resolved, monitor (6) Wound of lower extremity: Qualifiers: Encounter type: initial encounter Laterality: left Qualified Code(s): S81.802A - Unspecified open wound, left lower leg, initial encounter Code(s): S81.809A - Unspecified open wound, unspecified lower leg, initial encounter Status: Acute Assessment and Plan: As above (7) Depression: Code(s): F32.9 - Major depressive disorder, single episode, unspecified Status: Chronic Assessment and Plan: Stable, continue home meds (8) Neuropathy: Code(s): G62.9 - Polyneuropathy, unspecified Status: Acute Assessment and Plan: Stable, continue home meds (9) COPD (chronic obstructive pulmonary disease): Code(s): J44.9 - Chronic obstructive pulmonary disease, unspecified Status: Acute Assessment and Plan: With chronic respiratory failure, stable on his baseline 2 L of oxygen Plan DVT prophylaxis with Eliquis GI prophylaxis with PPI Code status full code Subjective Date/time seen: 12/25/22 11:15 Interval history: 62-year-old male with left-sided hemiplegia from a prior CVA, diabetes, heart failure is presenting from a nursing facility with nausea and vomiting and sepsis likely from wound on left tibia. Patient states he feels much better than yesterday. No overnight events noted. No chest pain or shortness of breath. No nausea, vomiting or diarrhea. No fevers or chills. He is able to eat more without any nausea. Review of Systems Review of Systems: 12 point review of systems was assessed and was negative except as noted in the HPI Exam Narrative: General: No acute distress, alert and oriented per baseline HEENT: Atraumatic, normocephalic, mucous membranes moist CV: Regular rate and rhythm, S1, S2 Lungs: Clear to auscultation bilaterally, no rales or crackles noted, no wheezes, good air entry Abdomen: Soft, nontender, nondistended Extremities: Normal to inspection, status post amputation of all the toes on his right foot is noted Skin: No rashes noted, wound noted over left tibia, erythema with some abrasions and bruising noted, no drainage Psych: Euthymic, normal affect Objective Data Vital Signs Vital Signs: Vital Signs - 24 hr 12/24/22 12:13 12/24/22 15:46 12/24/22 14:00 Temperature 97.1 F L 96.9 F L Pulse Rate 92 93 90 Respiratory Rate 20 20 Blood Pressure 141/64 H 132/50 L Pulse Oximetry 100 99 Oxygen Delivery Oxygen
[2022-12-25 11:56] LABS: Glucose Point of Care 220 mg/dl (65-105)
[2022-12-25] MEDS: SODIUM CHLORIDE 0.9% IV 1,000 ML 100 ML IV CONT (12:36)
[2022-12-25] MEDS: PANTOPRAZOLE 40 MG TABLET PO (12:36)
[2022-12-25 16:34] LABS: Glucose Point of Care 215 mg/dl (65-105)
[2022-12-25] MEDS: metroNIDAZOLE 250 MG TABLET 500 MG PO ×2 (16:43→23:47)
[2022-12-25] MEDS: NEOMYCIN/POLYMYXIN/BACITRACIN OINTMENT 15 GM TUBE 1 APPLIC TOPICAL (16:45)
[2022-12-25 20:23] LABS: Glucose Point of Care 105 mg/dl (65-105)
[2022-12-25] MEDS: ZOLPIDEM TARTRATE (*CRX) 5 MG TABLET 10 MG PO (20:47)
[2022-12-25] MEDS: SENNA/DOCUSATE SODIUM TABLET 2 TAB PO (20:50)
[2022-12-25] MEDS: GABAPENTIN 300 MG CAPSULE PO (20:50)
[2022-12-25] MEDS: MONTELUKAST SODIUM 10 MG TABLET PO (20:53)
[2022-12-25] MEDS: FENOFIBRATE 160 MG TABLET PO (20:53)
[2022-12-26] VITALS (20 sets, daily range): BP systolic 103–152; BP diastolic 46–67; PULSE 77–107; RESP 18–22; TEMP 36–36.8; O2SAT 80–99
[2022-12-26 03:36] LABS: Vancomycin Trough 11.3 ug/mL (10.0-20.0)
[2022-12-26] MEDS: SODIUM CHLORIDE 0.9% IV 1,000 ML 100 ML IV CONT ×2 (04:08→14:12)
[2022-12-26] MEDS: ACETAMINOPHEN 325 MG TABLET 650 MG PO ×2 (04:12→20:11)
[2022-12-26 04:44] LABS: Basophils Absolute Auto 0.1 K/mm3 (0.0-0.1); Basophils Percent Auto 0.6 % (0.2-1.2); Eosinophils Absolute Auto 0.9 K/mm3 (0-0.3); Eosinophils Percent Auto 4.3 % (0-4.4); Hematocrit 36.8 % (42.0-52.0); Hemoglobin 12.3 g/dL (14.0-18.0); Immature Granulocyte Absolute 0.12 K/mm3 (0.00-0.031); Immature Granulocyte Percent A 0.6 % (0-0.5); Lymphocytes Absolute Auto 2.68 K/mm3 (0.9-3.2); Lymphocytes Percent Auto 13.5 % (18.3-44.2); Mean Corpuscular HGB Conc 33.4 g/dl (32-36); Mean Corpuscular Hemoglobin 31.6 pg (26-34); Mean Corpuscular Volume 94.6 fl (80-100); Monocytes Absolute Auto 1.9 K/mm3 (0.1-0.6); Monocytes Percent Auto 9.8 % (2.6-8.5); Neutrophils Absolute Auto 14.1 K/mm3 (1.3-6.7); Neutrophils Percent Auto 71.2 % (45.5-73.1); Platelet Count Result 546 k/mm3 (150-375); Red Blood Count 3.89 M/mm3 (4.6-6.20); Red Cell Distribution Width 13.5 % (11.5-14.5); White Blood Count 19.8 K/mm3 (4.5-10.0)
[2022-12-26 04:53] LABS: Alanine Aminotransferase 25 U/L (6-50); Albumin Level 3.7 g/dL (3.5-5.1); Alkaline Phosphatase 69 U/L (38-126); Anion Gap 3 mmol/L (8-16); Aspartate Amino Transferase 28 U/L (17-59); Bilirubin,Total 0.4 mg/dL (0.2-1.3); Blood Urea Nitrogen 15 mg/dL (9-20); Carbon Dioxide 28 mmol/L (22-30); Chloride 101 mmol/L (98-107); Estimated CRCL calculation 84 ml/min; Estimated Glomerular Filt Rate > 60; Glucose 121 mg/dL (65-110); Potassium 3.8 mmol/L (3.4-5.0); Sodium 132 mmol/L (137-145)
--- NOTE | 2022-12-26 05:00 | PC.NURSE ---
I MONITORED THE CHARTING AND MEDICATION DISPENSING FOR THIS PATIENT DONE BY ROLANDO TUCKER RN AND I AGREE WITH EVERYTHING.
[2022-12-26] MEDS: metroNIDAZOLE 250 MG TABLET 500 MG PO ×3 (06:18→20:13)
[2022-12-26 08:04] LABS: Glucose Point of Care 99 mg/dl (65-105)
[2022-12-26] MEDS: FLUTICASONE/SALMETEROL 115-21 MCG INHALER 1 PUFF 2 PUFF INHALATION ×2 (08:11→21:23)
[2022-12-26] MEDS: PANTOPRAZOLE 40 MG TABLET PO (08:48)
[2022-12-26] MEDS: METOPROLOL SUCCINATE EXT REL 25 MG TABCR PO ×2 (08:48→20:14)
[2022-12-26] MEDS: VENLAFAXINE HCL 37.5 MG TABLET PO ×2 (08:49→20:14)
[2022-12-26] MEDS: MAGNESIUM OXIDE 400 MG TABLET PO ×2 (08:49→17:13)
[2022-12-26] MEDS: PREGABALIN (*CRX) 50 MG CAPSULE 100 MG PO ×2 (08:49→20:12)
[2022-12-26] MEDS: FINASTERIDE 5 MG TABLET PO (08:49)
[2022-12-26] MEDS: APIXABAN 5 MG TABLET PO ×2 (08:49→20:12)
[2022-12-26] MEDS: NEOMYCIN/POLYMYXIN/BACITRACIN OINTMENT 15 GM TUBE 1 APPLIC TOPICAL (09:00)
--- NOTE | 2022-12-26 09:44 | PM.IMPN ---
Progress Note: A&P Assessment and Plan (1) Sepsis: Code(s): A41.9 - Sepsis, unspecified organism Status: Acute Assessment and Plan: Sepsis likely from skin wound on left tibia? urine culture negative 2/2 blood cultures growing gram-positive cocci, 1/2 growing gram-positive bacilli, await sens repeat blood cultures ordered 12/26 started on IV antibiotics 12/24 with vancomycin, aztreonam and flagyl, d/c aztreonam 12/25 when cultures came back gram+, transitioned Flagyl to oral 12/25 leukocytosis worsened 12/26, added back aztreonam (2) Hemiplegia: Code(s): G81.90 - Hemiplegia, unspecified affecting unspecified side Status: Acute Assessment and Plan: Stable, PT/OT consultation (3) Type 2 diabetes mellitus with hyperglycemia, with long-term current use of insulin: Code(s): E11.65 - Type 2 diabetes mellitus with hyperglycemia; Z79.4 - care home (current) use of insulin Status: Acute Assessment and Plan: Accu-Cheks, sliding scale insulin, continue home medications, check A1c (4) Diastolic heart failure: Code(s): I50.30 - Unspecified diastolic (congestive) heart failure Status: Acute Assessment and Plan: Appears euvolemic at this time (5) Acute kidney injury superimposed on CKD: Code(s): N17.9 - Acute kidney failure, unspecified; N18.9 - Chronic kidney disease, unspecified Status: Acute Assessment and Plan: Appears resolved, monitor (6) Wound of lower extremity: Qualifiers: Encounter type: initial encounter Laterality: left Qualified Code(s): S81.802A - Unspecified open wound, left lower leg, initial encounter Code(s): S81.809A - Unspecified open wound, unspecified lower leg, initial encounter Status: Acute Assessment and Plan: As above (7) Depression: Code(s): F32.9 - Major depressive disorder, single episode, unspecified Status: Chronic Assessment and Plan: Stable, continue home meds (8) Neuropathy: Code(s): G62.9 - Polyneuropathy, unspecified Status: Acute Assessment and Plan: Stable, continue home meds (9) COPD (chronic obstructive pulmonary disease): Code(s): J44.9 - Chronic obstructive pulmonary disease, unspecified Status: Acute Assessment and Plan: With chronic respiratory failure, stable on his baseline 2 L of oxygen (10) Hyponatremia: Code(s): E87.1 - Hypo-osmolality and hyponatremia Status: Acute Assessment and Plan: sodium 132 today, stable Plan DVT prophylaxis with Eliquis GI prophylaxis with PPI Code status full code Subjective Date/time seen: 12/26/22 09:44 Interval history: 62-year-old male with left-sided hemiplegia from a prior CVA, diabetes, heart failure is presenting from a nursing facility with nausea and vomiting and sepsis likely from wound on left tibia. No overnight events noted. No chest pain or shortness of breath. No nausea, vomiting or diarrhea. No fevers or chills. He states he feels almost back to baseline. Review of Systems Review of Systems: 12 point review of systems was assessed and was negative except as noted in the HPI Exam Narrative: General: No acute distress, alert and oriented per baseline HEENT: Atraumatic, normocephalic, mucous membranes moist CV: Regular rate and rhythm, S1, S2 Lungs: Clear to auscultation bilaterally, no rales or crackles noted, no wheezes, good air entry Abdomen: Soft, nontender, nondistended Extremities: Normal to inspection, status post amputation of all the toes on his right foot is noted Skin: No rashes noted, wound noted over left tibia, erythema with some abrasions and bruising noted, no drainage Psych: Euthymic, normal affect Objective Data Vital Signs Vital Signs: Vital Signs - 24 hr 12/25/22 10:00 12/25/22 11:56 12/25/22 12:00 Temperature 97.3 F L Pulse Rate 84
[2022-12-26 11:39] LABS: Glucose Point of Care 188 mg/dl (65-105)
[2022-12-26] MEDS: AZTREONAM 2 GM in SODIUM CHLORIDE 0.9% IV 100 ML 200 ML IVPB ×2 (11:51→17:12)
[2022-12-26] MEDS: INSULIN GLARGINE (*BKC) 100 UNITS/ML 40 UNITS SUB-Q (11:52)
[2022-12-26 16:05] LABS: Glucose Point of Care 216 mg/dl (65-105)
[2022-12-26] MEDS: INSULIN ASPART (*BKC) 100 UNITS/ML 12 UNITS SUB-Q (17:13)
[2022-12-26] MEDS: FENOFIBRATE 160 MG TABLET PO (20:13)
[2022-12-26] MEDS: GABAPENTIN 300 MG CAPSULE PO (20:13)
[2022-12-26] MEDS: MONTELUKAST SODIUM 10 MG TABLET PO (20:15)
[2022-12-26] MEDS: diazePAM (*CRX) 2 MG TABLET PO (20:17)
[2022-12-26 21:09] LABS: Glucose Point of Care 175 mg/dl (65-105)
[2022-12-27] VITALS (14 sets, daily range): BP systolic 123–142; BP diastolic 53–67; PULSE 76–93; RESP 12–20; TEMP 36.3–36.7; O2SAT 94–98
--- NOTE | 2022-12-27 00:17 | PC.NURSE ---
Daylight Savings Time For Daylight Savings Time Ending in the Fall - Clocks are moved back. For Daylight Savings Time Beginning in the Spring - Clocks are moved ahead. For [facility], the time of change occurs at 0200 hrs. Time is taken from the sql server bi developer. This entry on the patient's chart recognizes the change in time reflected during documentation. Example: 2 entries for vital signs may be charted for 0200 hrs.
[2022-12-27] MEDS: AZTREONAM 2 GM in SODIUM CHLORIDE 0.9% IV 100 ML 200 ML IVPB ×3 (01:27→17:36)
[2022-12-27] MEDS: SODIUM CHLORIDE 0.9% IV 1,000 ML 100 ML IV CONT (04:29)
[2022-12-27 04:52] LABS: Basophils Absolute Auto 0.2 K/mm3 (0.0-0.1); Basophils Percent Auto 0.8 % (0.2-1.2); Eosinophils Absolute Auto 1.3 K/mm3 (0-0.3); Eosinophils Percent Auto 7.1 % (0-4.4); Hematocrit 35.3 % (42.0-52.0); Hemoglobin 12.1 g/dL (14.0-18.0); Immature Granulocyte Absolute 0.13 K/mm3 (0.00-0.031); Immature Granulocyte Percent A 0.7 % (0-0.5); Lymphocytes Absolute Auto 4.04 K/mm3 (0.9-3.2); Lymphocytes Percent Auto 22.7 % (18.3-44.2); Mean Corpuscular HGB Conc 34.3 g/dl (32-36); Mean Corpuscular Hemoglobin 31.6 pg (26-34); Mean Corpuscular Volume 92.2 fl (80-100); Mean Platelet Volume 10.8 fl (7.4-10.4); Monocytes Absolute Auto 1.6 K/mm3 (0.1-0.6); Monocytes Percent Auto 9.1 % (2.6-8.5); Neutrophils Absolute Auto 10.6 K/mm3 (1.3-6.7); Neutrophils Percent Auto 59.6 % (45.5-73.1); Platelet Count Result 547 k/mm3 (150-375); Red Blood Count 3.83 M/mm3 (4.6-6.20); Red Cell Distribution Width 13.7 % (11.5-14.5); White Blood Count 17.8 K/mm3 (4.5-10.0)
[2022-12-27 05:10] LABS: Alanine Aminotransferase 22 U/L (6-50); Albumin Level 3.4 g/dL (3.5-5.1); Alkaline Phosphatase 66 U/L (38-126); Anion Gap 4 mmol/L (8-16); Aspartate Amino Transferase 27 U/L (17-59); Bilirubin,Total 0.4 mg/dL (0.2-1.3); Blood Urea Nitrogen 17 mg/dL (9-20); Calcium 8.6 mg/dL (8.4-10.2); Carbon Dioxide 25 mmol/L (22-30); Chloride 108 mmol/L (98-107); Estimated CRCL calculation 70 ml/min; Estimated Glomerular Filt Rate > 60; Glucose 107 mg/dL (65-110); Sodium 137 mmol/L (137-145)
[2022-12-27 05:17] LABS: Platelet Estimate Increased (Adequate)
[2022-12-27 05:18] LABS: Atypical Lymphocytes Present
[2022-12-27] MEDS: metroNIDAZOLE 250 MG TABLET 500 MG PO ×3 (05:44→22:00)
[2022-12-27 06:15] LABS: Schistocytes None Seen (NORMAL)
[2022-12-27 07:55] LABS: Glucose Point of Care 128 mg/dl (65-105)
[2022-12-27] MEDS: FLUTICASONE/SALMETEROL 115-21 MCG INHALER 1 PUFF 2 PUFF INHALATION ×2 (08:19→20:20)
[2022-12-27] MEDS: MAGNESIUM OXIDE 400 MG TABLET PO ×2 (09:26→17:33)
[2022-12-27] MEDS: VENLAFAXINE HCL 37.5 MG TABLET PO ×2 (09:26→20:44)
[2022-12-27] MEDS: PREGABALIN (*CRX) 50 MG CAPSULE 100 MG PO ×2 (09:26→20:44)
[2022-12-27] MEDS: METOPROLOL SUCCINATE EXT REL 25 MG TABCR PO ×2 (09:26→20:43)
[2022-12-27] MEDS: FINASTERIDE 5 MG TABLET PO (09:26)
[2022-12-27] MEDS: ERGOCALCIFEROL 50,000 UNITS CAPSULE 50000 UNITS PO (09:26)
[2022-12-27] MEDS: PANTOPRAZOLE 40 MG TABLET PO (09:27)
[2022-12-27] MEDS: NEOMYCIN/POLYMYXIN/BACITRACIN OINTMENT 15 GM TUBE 1 APPLIC TOPICAL (09:27)
[2022-12-27] MEDS: INSULIN GLARGINE (*BKC) 100 UNITS/ML 40 UNITS SUB-Q (09:27)
[2022-12-27] MEDS: APIXABAN 5 MG TABLET PO ×2 (09:27→20:44)
--- NOTE | 2022-12-27 10:20 | PM.IMPN ---
Progress Note: A&P Assessment and Plan (1) Sepsis: Code(s): A41.9 - Sepsis, unspecified organism Status: Acute Assessment and Plan: Sepsis likely from skin wound on left tibia? urine culture negative 2/2 blood cultures positive, 1 is growing MRSA, sensitive to vancomycin, clindamycin and doxycycline, 1 is growing Staphylococcus aureus as well as Enterococcus faecalis, sensitivities still pending repeat blood cultures ordered 12/26, pending started on IV antibiotics 12/24 with vancomycin, aztreonam and flagyl, d/c aztreonam 12/25 when cultures came back gram+, transitioned Flagyl to oral 12/25 leukocytosis worsened 12/26, added back aztreonam 12/27: Improving leukocytosis, continue vancomycin, aztreonam and oral Flagyl for now, will likely be able to deescalate to just MRSA coverage in the next day or 2, follow-up sensitivities of Enterococcus (2) Hemiplegia: Code(s): G81.90 - Hemiplegia, unspecified affecting unspecified side Status: Acute Assessment and Plan: Stable, PT/OT consultation (3) Type 2 diabetes mellitus with hyperglycemia, with long-term current use of insulin: Code(s): E11.65 - Type 2 diabetes mellitus with hyperglycemia; Z79.4 - long-term (current) use of insulin Status: Acute Assessment and Plan: Accu-Cheks, sliding scale insulin, continue home medications, A1c is 7.2 Continue Lantus 40 units daily, NovoLog 12 units with meals (4) Diastolic heart failure: Code(s): I50.30 - Unspecified diastolic (congestive) heart failure Status: Acute Assessment and Plan: Appears euvolemic at this time (5) Acute kidney injury superimposed on CKD: Code(s): N17.9 - Acute kidney failure, unspecified; N18.9 - Chronic kidney disease, unspecified Status: Acute Assessment and Plan: Appears resolved, monitor (6) Wound of lower extremity: Qualifiers: Encounter type: initial encounter Laterality: left Qualified Code(s): S81.802A - Unspecified open wound, left lower leg, initial encounter Code(s): S81.809A - Unspecified open wound, unspecified lower leg, initial encounter Status: Acute Assessment and Plan: As above (7) Depression: Code(s): F32.9 - Major depressive disorder, single episode, unspecified Status: Chronic Assessment and Plan: Stable, continue home meds (8) Neuropathy: Code(s): G62.9 - Polyneuropathy, unspecified Status: Acute Assessment and Plan: Stable, continue home meds (9) COPD (chronic obstructive pulmonary disease): Code(s): J44.9 - Chronic obstructive pulmonary disease, unspecified Status: Acute Assessment and Plan: With chronic respiratory failure, stable on his baseline 2 L of oxygen (10) Hyponatremia: Code(s): E87.1 - Hypo-osmolality and hyponatremia Status: Acute Assessment and Plan: Resolved, sodium 137 today Plan DVT prophylaxis with Eliquis GI prophylaxis with PPI Code status full code Subjective Date/time seen: 12/27/22 10:20 Interval history: 62-year-old male with left-sided hemiplegia from a prior CVA, diabetes, heart failure is presenting from a nursing facility with nausea and vomiting and sepsis likely from wound on left tibia. No overnight events noted. No chest pain or shortness of breath. No nausea, vomiting or diarrhea. No fevers or chills. He states he feels the same as yesterday. Review of Systems Review of Systems: 12 point review of systems was assessed and was negative except as noted in the HPI Exam Narrative: General: No acute distress, alert and oriented per baseline HEENT: Atraumatic, normocephalic, mucous membranes moist CV: Regular rate and rhythm, S1, S2 Lungs: Clear to auscultation bilaterally, no rales or crackles noted, no wheezes, good air entry Abdomen: Soft, nontender, nondistended Extremities: Normal to insp
[2022-12-27 11:46] LABS: Glucose Point of Care 164 mg/dl (65-105)
--- NOTE | 2022-12-27 13:45 | PC.NURSE ---
This patient, Jeremías Gaines, was transferred to [[id number] ] on 12/27/22 at 1345. Personal belongings sent with patient. Report given to [Bettie CLARK ]. Appropriate documentation sent with patient.
[2022-12-27 16:28] LABS: Vancomycin Trough 20.1 ug/mL (10.0-20.0)
[2022-12-27 17:20] LABS: Glucose Point of Care 205 mg/dl (65-105)
[2022-12-27] MEDS: INSULIN ASPART (*BKC) 100 UNITS/ML 12 UNITS SUB-Q (17:32)
[2022-12-27] MEDS: SENNA/DOCUSATE SODIUM TABLET 2 TAB PO (20:43)
[2022-12-27] MEDS: MONTELUKAST SODIUM 10 MG TABLET PO (20:43)
[2022-12-27] MEDS: FENOFIBRATE 160 MG TABLET PO (20:43)
[2022-12-27] MEDS: GABAPENTIN 300 MG CAPSULE PO (20:44)
[2022-12-28] VITALS (9 sets, daily range): BP systolic 129–146; BP diastolic 60–67; PULSE 64–87; RESP 16–18; TEMP 36.4–36.9; O2SAT 95–100
[2022-12-28] MEDS: AZTREONAM 2 GM in SODIUM CHLORIDE 0.9% IV 100 ML 200 ML IVPB ×2 (01:32→10:08)
[2022-12-28 05:55] LABS: Basophils Absolute Auto 0.2 K/mm3 (0.0-0.1); Basophils Percent Auto 0.9 % (0.2-1.2); Eosinophils Absolute Auto 1.3 K/mm3 (0-0.3); Eosinophils Percent Auto 6.8 % (0-4.4); Hematocrit 36.4 % (42.0-52.0); Hemoglobin 12.2 g/dL (14.0-18.0); Lymphocytes Absolute Auto 3.81 K/mm3 (0.9-3.2); Lymphocytes Percent Auto 19.3 % (18.3-44.2); Mean Corpuscular HGB Conc 33.5 g/dl (32-36); Mean Corpuscular Hemoglobin 31.4 pg (26-34); Mean Corpuscular Volume 93.8 fl (80-100); Mean Platelet Volume 10.9 fl (7.4-10.4); Monocytes Absolute Auto 1.6 K/mm3 (0.1-0.6); Monocytes Percent Auto 7.9 % (2.6-8.5); Neutrophils Absolute Auto 12.6 K/mm3 (1.3-6.7); Neutrophils Percent Auto 64.1 % (45.5-73.1); Platelet Count Result 639 k/mm3 (150-375); Red Blood Count 3.88 M/mm3 (4.6-6.20); Red Cell Distribution Width 13.5 % (11.5-14.5); White Blood Count 19.7 K/mm3 (4.5-10.0)
[2022-12-28 06:10] LABS: Alanine Aminotransferase 22 U/L (6-50); Albumin Level 3.3 g/dL (3.5-5.1); Alkaline Phosphatase 64 U/L (38-126); Anion Gap 3 mmol/L (8-16); Aspartate Amino Transferase 24 U/L (17-59); Bilirubin,Total 0.4 mg/dL (0.2-1.3); Blood Urea Nitrogen 15 mg/dL (9-20); Carbon Dioxide 28 mmol/L (22-30); Chloride 105 mmol/L (98-107); Estimated CRCL calculation 77 ml/min; Estimated Glomerular Filt Rate > 60; Glucose 134 mg/dL (65-110); Potassium 3.8 mmol/L (3.4-5.0); Sodium 136 mmol/L (137-145)
[2022-12-28] MEDS: metroNIDAZOLE 250 MG TABLET 500 MG PO ×2 (06:33→15:08)
[2022-12-28] MEDS: FLUTICASONE/SALMETEROL 115-21 MCG INHALER 1 PUFF 2 PUFF INHALATION ×2 (07:44→21:02)
[2022-12-28 08:26] LABS: Glucose Point of Care 128 mg/dl (65-105)
[2022-12-28] MEDS: INSULIN ASPART (*BKC) 100 UNITS/ML 12 UNITS SUB-Q ×3 (10:06→18:08)
[2022-12-28] MEDS: PREGABALIN (*CRX) 50 MG CAPSULE 100 MG PO ×2 (10:06→20:08)
[2022-12-28] MEDS: INSULIN GLARGINE (*BKC) 100 UNITS/ML 40 UNITS SUB-Q (10:06)
[2022-12-28] MEDS: MAGNESIUM OXIDE 400 MG TABLET PO ×2 (10:06→18:09)
[2022-12-28] MEDS: APIXABAN 5 MG TABLET PO ×2 (10:06→20:08)
[2022-12-28] MEDS: FINASTERIDE 5 MG TABLET PO (10:06)
[2022-12-28] MEDS: PANTOPRAZOLE 40 MG TABLET PO (10:06)
[2022-12-28] MEDS: VENLAFAXINE HCL 37.5 MG TABLET PO ×2 (10:07→20:08)
[2022-12-28] MEDS: METOPROLOL SUCCINATE EXT REL 25 MG TABCR PO ×2 (10:07→20:07)
[2022-12-28] MEDS: NEOMYCIN/POLYMYXIN/BACITRACIN OINTMENT 15 GM TUBE 1 APPLIC TOPICAL (10:08)
[2022-12-28 10:29] LABS: IFOB Positive Control Positive; Immunochemical Fecal Occult Bl Negative (N)
[2022-12-28 12:08] LABS: Glucose Point of Care 208 mg/dl (65-105)
--- NOTE | 2022-12-28 15:43 | PM.IMPN ---
Progress Note: A&P Assessment and Plan (1) Sepsis: Code(s): A41.9 - Sepsis, unspecified organism Status: Acute Assessment and Plan: Sepsis likely from skin wound on left tibia? urine culture negative 2/2 blood cultures positive, 1 is growing MRSA, sensitive to vancomycin, clindamycin and doxycycline, 1 is growing Staphylococcus aureus as well as Enterococcus faecalis, sensitivities still pending repeat blood cultures ordered 12/26, pending started on IV antibiotics 12/24 with vancomycin, aztreonam and flagyl, d/c aztreonam 12/25 when cultures came back gram+, transitioned Flagyl to oral 12/25 leukocytosis worsened 12/26, added back aztreonam 12/27: Improving leukocytosis, continue vancomycin, aztreonam and oral Flagyl for now, will likely be able to deescalate to just MRSA coverage in the next day or 2, follow-up sensitivities of Enterococcus 12/28: Leuk went back up to 19, enterococcus came back VRE, will need ampicillin, d/c aztreonam + flagyl, cont vanc for the MRSA (2) Hemiplegia: Code(s): G81.90 - Hemiplegia, unspecified affecting unspecified side Status: Acute Assessment and Plan: Stable, PT/OT consultation (3) Type 2 diabetes mellitus with hyperglycemia, with long-term current use of insulin: Code(s): E11.65 - Type 2 diabetes mellitus with hyperglycemia; Z79.4 - buttermaker helper (current) use of insulin Status: Acute Assessment and Plan: Accu-Cheks, sliding scale insulin, continue home medications, A1c is 7.2 Continue Lantus 40 units daily, NovoLog 12 units with meals (4) Diastolic heart failure: Code(s): I50.30 - Unspecified diastolic (congestive) heart failure Status: Acute Assessment and Plan: Appears euvolemic at this time (5) Acute kidney injury superimposed on CKD: Code(s): N17.9 - Acute kidney failure, unspecified; N18.9 - Chronic kidney disease, unspecified Status: Acute Assessment and Plan: Appears resolved, monitor (6) Wound of lower extremity: Qualifiers: Encounter type: initial encounter Laterality: left Qualified Code(s): S81.802A - Unspecified open wound, left lower leg, initial encounter Code(s): S81.809A - Unspecified open wound, unspecified lower leg, initial encounter Status: Acute Assessment and Plan: As above (7) Depression: Code(s): F32.9 - Major depressive disorder, single episode, unspecified Status: Chronic Assessment and Plan: Stable, continue home meds (8) Neuropathy: Code(s): G62.9 - Polyneuropathy, unspecified Status: Acute Assessment and Plan: Stable, continue home meds (9) COPD (chronic obstructive pulmonary disease): Code(s): J44.9 - Chronic obstructive pulmonary disease, unspecified Status: Acute Assessment and Plan: With chronic respiratory failure, stable on his baseline 2 L of oxygen (10) Hyponatremia: Code(s): E87.1 - Hypo-osmolality and hyponatremia Status: Acute Assessment and Plan: Resolved, sodium 136 today Plan DVT prophylaxis with Eliquis GI prophylaxis with PPI Code status full code Subjective Date/time seen: 12/28/22 15:43 Interval history: 62-year-old male with left-sided hemiplegia from a prior CVA, diabetes, heart failure is presenting from a nursing facility with nausea and vomiting and sepsis likely from wound on left tibia. No overnight events noted. No chest pain or shortness of breath. No nausea, vomiting or diarrhea. No fevers or chills. He states he feels the same as yesterday. Review of Systems Review of Systems: 12 point review of systems was assessed and was negative except as noted in the HPI Exam Narrative: General: No acute distress, alert and oriented per baseline HEENT: Atraumatic, normocephalic, mucous membranes moist CV: Regular rate and rhythm, S1, S2 Lungs: Clear to auscultation bilatera
[2022-12-28 16:57] LABS: Glucose Point of Care 137 mg/dl (65-105)
[2022-12-28] MEDS: AMPICILLIN 2 GM/NS 100 ML 2 GM/100 ML BAG IVPB ×2 (18:56→22:01)
[2022-12-28] MEDS: MONTELUKAST SODIUM 10 MG TABLET PO (20:07)
[2022-12-28] MEDS: GABAPENTIN 300 MG CAPSULE PO (20:07)
[2022-12-28] MEDS: FENOFIBRATE 160 MG TABLET PO (20:07)
[2022-12-28] MEDS: SENNA/DOCUSATE SODIUM TABLET 2 TAB PO (20:08)
[2022-12-28] MEDS: ZOLPIDEM TARTRATE (*CRX) 5 MG TABLET 10 MG PO (20:09)
[2022-12-28 20:33] LABS: Glucose Point of Care 102 mg/dl (65-105)
[2022-12-29] VITALS (10 sets, daily range): BP systolic 123–131; BP diastolic 59–62; PULSE 66–83; RESP 17–18; TEMP 36.7–37; O2SAT 94–99
--- NOTE | 2022-12-29 | ECHO_ITS ---
Patient Info Name: Jeremías Gaines Age: 62 years : 1960 Gender: Male Ht: 67 in Wt: 216 lbs BSA: 2.19 m2 HR: 92 bpm BP: 131 / 62 mmHg Heart Rhythm: Sinus Rhythm Technical Quality: Fair Exam Date: 12/29/2022 10:27 AM Exam Location: [facility] Patient Status: Inpatient Admit Date: 12/24/2022 Staff Ordering Physician: Hannah Charlton DO Cage Maker Machine: Katie Robledo RDCS Attending Provider: Gabbi Pratt MD Referring Physician: Zoltan GOSS; Exam Type: CA echo dop color flow w con Study Info Indications - CHECK FOR VALVULAR VEGETATION - LEUKOCYTOSIS Complete two-dimensional, color flow and Doppler transthoracic echocardiogram is performed with contrast to opacify the left ventricle and to improve the deliniation of the left ventricle endocardial borders. Contrast/Agitated Saline Contrast/Ag. Saline: Definity Amount: 2.00 ml Administered By: Katie Robledo RDCS Existing IV Access: Yes IV Access Condition: patent with no signs of infiltration Summary 1. Left ventricular chamber dimension is normal. 2. Left ventricular systolic function is normal, estimated at 55-60%. 3. The left ventricular diastolic function is grade I diastolic dysfunction. 4. Right ventricular systolic function is normal. 5. Left atrial chamber dimension is mildly enlarged. 6. There is mild aortic valve calcification. 7. The mitral valve annulus is mildly calcified. 8. Reason for study was to evaluate for valvular vegetations. No evidence of vegetations on this study, however, cannot rule out vegetation with this study. Recommend DARÍO if clinically indicated. Left Ventricle Left ventricular chamber dimension is normal. Left ventricular systolic function is normal, estimated at 55-60%. There is no increased left ventricular wall thickness. The left ventricular diastolic function is grade I diastolic dysfunction. Right Ventricle Right ventricular chamber dimension is normal. Right ventricular systolic function is normal. Left Atria Left atrial chamber dimension is mildly enlarged. Right Atria Right atrial chamber dimension is normal. Atrial Septum Intact interatrial septum visualized by color flow imaging. Aortic Valve The aortic valve is trileaflet. There is no aortic valve stenosis. There is no aortic valve regurgitation. There is mild aortic valve calcification. Pulmonic Valve The pulmonic valve is not well visualized. Mitral Valve The mitral valve has normal leaflets. There is no mitral valve stenosis. There is trace mitral valve regurgitation. The mitral valve annulus is mildly calcified. Tricuspid Valve There is no significant tricuspid valve stenosis. There is trace tricuspid valve regurgitation. Pericardium/Pleural The pericardium appears normal. Inferior Vena Cava Normal inferior vena cava with <50% collapse upon inspiration consistent with elevated right atrial pressure, 8 mmHg. Aorta The aortic root size at the sinus of Valsalva is normal. Left Ventricular Outflow Tract Name Value Normal LVOT 2D LVOT Diameter 2.00 cm LVOT Doppler
[2022-12-29] MEDS: AMPICILLIN 2 GM/NS 100 ML 2 GM/100 ML BAG IVPB ×6 (01:27→21:35)
[2022-12-29 07:27] LABS: Basophils Absolute Auto 0.2 K/mm3 (0.0-0.1); Basophils Percent Auto 0.8 % (0.2-1.2); Eosinophils Absolute Auto 1.2 K/mm3 (0-0.3); Eosinophils Percent Auto 5.8 % (0-4.4); Hematocrit 36.3 % (42.0-52.0); Hemoglobin 12.3 g/dL (14.0-18.0); Immature Granulocyte Percent A 1.4 % (0-0.5); Lymphocytes Absolute Auto 4.13 K/mm3 (0.9-3.2); Lymphocytes Percent Auto 19.4 % (18.3-44.2); Mean Corpuscular HGB Conc 33.9 g/dl (32-36); Mean Corpuscular Volume 91.4 fl (80-100); Mean Platelet Volume 10.8 fl (7.4-10.4); Monocytes Absolute Auto 1.6 K/mm3 (0.1-0.6); Monocytes Percent Auto 7.5 % (2.6-8.5); Neutrophils Absolute Auto 13.9 K/mm3 (1.3-6.7); Neutrophils Percent Auto 65.1 % (45.5-73.1); Platelet Count Result 776 k/mm3 (150-375); Red Blood Count 3.97 M/mm3 (4.6-6.20); Red Cell Distribution Width 13.8 % (11.5-14.5); White Blood Count 21.3 K/mm3 (4.5-10.0)
[2022-12-29 07:42] LABS: Alanine Aminotransferase 21 U/L (6-50); Albumin Level 3.5 g/dL (3.5-5.1); Alkaline Phosphatase 60 U/L (38-126); Anion Gap 4 mmol/L (8-16); Aspartate Amino Transferase 31 U/L (17-59); Bilirubin,Total 0.5 mg/dL (0.2-1.3); Blood Urea Nitrogen 17 mg/dL (9-20); Carbon Dioxide 28 mmol/L (22-30); Chloride 106 mmol/L (98-107); Estimated CRCL calculation 76 ml/min; Estimated Glomerular Filt Rate > 60; Glucose 115 mg/dL (65-110); Potassium 4.2 mmol/L (3.4-5.0); Sodium 138 mmol/L (137-145)
[2022-12-29] MEDS: FLUTICASONE/SALMETEROL 115-21 MCG INHALER 1 PUFF 2 PUFF INHALATION ×2 (08:43→19:54)
[2022-12-29 08:44] LABS: Glucose Point of Care 130 mg/dl (65-105)
--- NOTE | 2022-12-29 08:49 | PM.IMPN ---
Progress Note: A&P Assessment and Plan (1) Sepsis: Code(s): A41.9 - Sepsis, unspecified organism Status: Acute Assessment and Plan: Sepsis likely from skin wound on left tibia, improving, and gastroenteritis, all of patient's symptoms resolved and he has remained symptom free with skin wound looking non-erythematous, non infectious and he has remained afebrile with VSS on his home oxygen of 2L, there was perinephric stranding of B/L kidneys on initial CT, resolved on repeat CT, pyelitis could be source of VRE? urine culture negative 2/2 blood cultures positive: 2/2 are growing MRSA, sensitive to vancomycin, clindamycin and doxycycline; 1 is growing VRE repeat blood cultures ordered 12/26, NGTD started on IV antibiotics 12/24 with vancomycin, aztreonam and flagyl, d/c aztreonam 12/25 when cultures came back gram+, transitioned Flagyl to oral 12/25, leukocytosis worsened 12/26, added back aztreonam, leuk improved at first, then worsened 12/28 when cx came back VRE--added amp and d/c aztreonam + flagyl 12/29: Leuk cont to rise, up to 21 today, unsure why, suspect we are covering the two sources originally found, VRE from the gastroenteritis (now resolved) and MRSA from the skin infection (significantly improved erythema), low risk of IE, check CT chest/abd/pelvis + MRI left tibia + echo to look for any other sources and further evaluate the skin wound on left tibia (osteo??--low suspicion), recheck CBC this afternoon--maybe ampicillin needed more time to be effective? Repeat CBC was essentially unchanged at 20, but it did not continue to rise! TTE showed no signs of vegetation, EF 55-60%, grade I diastolic dysfunction. Would continue monitoring repeat blood cultures and f/u MRI skin lesion. If no signs of osteo, would d/c on IV abx to complete 14 day course minimum. Consider DARÍO? (2) Hemiplegia: Code(s): G81.90 - Hemiplegia, unspecified affecting unspecified side Status: Acute Assessment and Plan: Stable, PT/OT consultation (3) Type 2 diabetes mellitus with hyperglycemia, with long-term current use of insulin: Code(s): E11.65 - Type 2 diabetes mellitus with hyperglycemia; Z79.4 - buttermilk drier operator (current) use of insulin Status: Acute Assessment and Plan: Accu-Cheks, sliding scale insulin, continue home medications, A1c is 7.2 Continue Lantus 40 units daily, NovoLog 12 units with meals (4) Diastolic heart failure: Code(s): I50.30 - Unspecified diastolic (congestive) heart failure Status: Acute Assessment and Plan: Appears euvolemic at this time (5) Acute kidney injury superimposed on CKD: Code(s): N17.9 - Acute kidney failure, unspecified; N18.9 - Chronic kidney disease, unspecified Status: Acute Assessment and Plan: Appears resolved, monitor (6) Wound of lower extremity: Qualifiers: Encounter type: initial encounter Laterality: left Qualified Code(s): S81.802A - Unspecified open wound, left lower leg, initial encounter Code(s): S81.809A - Unspecified open wound, unspecified lower leg, initial encounter Status: Acute Assessment and Plan: As above (7) Depression: Code(s): F32.9 - Major depressive disorder, single episode, unspecified Status: Chronic Assessment and Plan: Stable, continue home meds (8) Neuropathy: Code(s): G62.9 - Polyneuropathy, unspecified Status: Acute Assessment and Plan: Stable, continue home meds (9) COPD (chronic obstructive pulmonary disease): Code(s): J44.9 - Chronic obstructive pulmonary disease, unspecified Status: Acute Assessment and Plan: With chronic respiratory failure, stable on his baseline 2 L of oxygen (10) Hyponatremia: Code(s): E87.1 - Hypo-osmolality and hyponatremia Status: Acute Assessment and Plan: Resolved, sodium 138 today 12/29 Plan DVT prophylaxis with Eliquis
--- NOTE | 2022-12-29 10:13 | PC.NURSE ---
Patient off floor for CT 930-100. Giving 9am meds now
[2022-12-29] MEDS: PREGABALIN (*CRX) 50 MG CAPSULE 100 MG PO ×2 (10:19→21:31)
[2022-12-29] MEDS: FINASTERIDE 5 MG TABLET PO (10:20)
[2022-12-29] MEDS: METOPROLOL SUCCINATE EXT REL 25 MG TABCR PO ×2 (10:20→21:34)
[2022-12-29] MEDS: MAGNESIUM OXIDE 400 MG TABLET PO ×2 (10:20→16:49)
[2022-12-29] MEDS: APIXABAN 5 MG TABLET PO ×2 (10:21→21:32)
[2022-12-29] MEDS: VENLAFAXINE HCL 37.5 MG TABLET PO ×2 (10:22→21:35)
[2022-12-29] MEDS: PANTOPRAZOLE 40 MG TABLET PO (10:22)
[2022-12-29] MEDS: INSULIN GLARGINE (*BKC) 100 UNITS/ML 40 UNITS SUB-Q (10:25)
[2022-12-29] MEDS: PERFLUTREN LIPID MICROSPHERES 1.5 ML VIAL DILUTED TO 10 ML TOTAL VOLUME IV PUSH (10:50)
[2022-12-29 12:08] LABS: Glucose Point of Care 256 mg/dl (65-105)
[2022-12-29] MEDS: INSULIN ASPART (*BKC) 100 UNITS/ML 12 UNITS SUB-Q ×2 (12:23→17:34)
[2022-12-29] MEDS: NEOMYCIN/POLYMYXIN/BACITRACIN OINTMENT 15 GM TUBE 1 APPLIC TOPICAL (12:23)
--- NOTE | 2022-12-29 14:49 | PC.NURSE ---
1100 Vancomycin trough due. Vancomycin is listed as due @ 1200. Notified lab of Vancomycin trough still being shown as ordered rather than collected, waiting for trough and pharmacy to send medication.
[2022-12-29 14:54] LABS: Basophils Absolute Auto 0.2 K/mm3 (0.0-0.1); Basophils Percent Auto 0.8 % (0.2-1.2); Eosinophils Absolute Auto 0.7 K/mm3 (0-0.3); Eosinophils Percent Auto 3.4 % (0-4.4); Hemoglobin 12.4 g/dL (14.0-18.0); Immature Granulocyte Absolute 0.32 K/mm3 (0.00-0.031); Immature Granulocyte Percent A 1.5 % (0-0.5); Lymphocytes Absolute Auto 3.22 K/mm3 (0.9-3.2); Lymphocytes Percent Auto 15.5 % (18.3-44.2); Mean Corpuscular HGB Conc 33.5 g/dl (32-36); Mean Corpuscular Hemoglobin 31.3 pg (26-34); Mean Corpuscular Volume 93.4 fl (80-100); Mean Platelet Volume 10.6 fl (7.4-10.4); Monocytes Absolute Auto 1.3 K/mm3 (0.1-0.6); Monocytes Percent Auto 6.4 % (2.6-8.5); Neutrophils Absolute Auto 15.1 K/mm3 (1.3-6.7); Neutrophils Percent Auto 72.4 % (45.5-73.1); Platelet Count Result 752 k/mm3 (150-375); Red Blood Count 3.96 M/mm3 (4.6-6.20); Red Cell Distribution Width 13.8 % (11.5-14.5); White Blood Count 20.8 K/mm3 (4.5-10.0)
[2022-12-29 17:17] LABS: Glucose Point of Care 124 mg/dl (65-105)
[2022-12-29 20:30] LABS: Glucose Point of Care 136 mg/dl (65-105)
[2022-12-29] MEDS: SENNA/DOCUSATE SODIUM TABLET 2 TAB PO (21:31)
[2022-12-29] MEDS: ACETAMINOPHEN 325 MG TABLET 650 MG PO (21:31)
[2022-12-29] MEDS: ZOLPIDEM TARTRATE (*CRX) 5 MG TABLET 10 MG PO (21:31)
[2022-12-29] MEDS: GABAPENTIN 300 MG CAPSULE PO (21:35)
[2022-12-29] MEDS: FENOFIBRATE 160 MG TABLET PO (21:35)
[2022-12-30] VITALS (8 sets, daily range): BP systolic 131–151; BP diastolic 48–65; PULSE 76–88; RESP 16–18; TEMP 36.2–36.8; O2SAT 97–100
[2022-12-30] MEDS: AMPICILLIN 2 GM/NS 100 ML 2 GM/100 ML BAG IVPB ×6 (01:57→21:35)
[2022-12-30 05:15] LABS: Basophils Absolute Auto 0.2 K/mm3 (0.0-0.1); Basophils Percent Auto 0.9 % (0.2-1.2); Eosinophils Absolute Auto 1.2 K/mm3 (0-0.3); Eosinophils Percent Auto 5.3 % (0-4.4); Hematocrit 39.5 % (42.0-52.0); Hemoglobin 13.1 g/dL (14.0-18.0); Immature Granulocyte Absolute 0.39 K/mm3 (0.00-0.031); Immature Granulocyte Percent A 1.8 % (0-0.5); Lymphocytes Absolute Auto 4.75 K/mm3 (0.9-3.2); Lymphocytes Percent Auto 21.4 % (18.3-44.2); Mean Corpuscular HGB Conc 33.2 g/dl (32-36); Mean Corpuscular Hemoglobin 31.1 pg (26-34); Mean Corpuscular Volume 93.8 fl (80-100); Mean Platelet Volume 10.5 fl (7.4-10.4); Monocytes Absolute Auto 1.5 K/mm3 (0.1-0.6); Monocytes Percent Auto 6.8 % (2.6-8.5); Neutrophils Absolute Auto 14.2 K/mm3 (1.3-6.7); Neutrophils Percent Auto 63.8 % (45.5-73.1); Nucleated Red Blood Cells Perc 0.1 % (0.0-0.2); Platelet Count Result 828 k/mm3 (150-375); Red Blood Count 4.21 M/mm3 (4.6-6.20); White Blood Count 22.2 K/mm3 (4.5-10.0)
[2022-12-30 05:27] LABS: Alanine Aminotransferase 21 U/L (6-50); Albumin Level 3.8 g/dL (3.5-5.1); Alkaline Phosphatase 63 U/L (38-126); Anion Gap 3 mmol/L (8-16); Aspartate Amino Transferase 29 U/L (17-59); Bilirubin,Total 0.4 mg/dL (0.2-1.3); Blood Urea Nitrogen 17 mg/dL (9-20); Calcium 9.6 mg/dL (8.4-10.2); Carbon Dioxide 29 mmol/L (22-30); Chloride 102 mmol/L (98-107); Estimated CRCL calculation 69 ml/min; Estimated Glomerular Filt Rate > 60; Glucose 130 mg/dL (65-110); Potassium 3.9 mmol/L (3.4-5.0); Sodium 134 mmol/L (137-145)
--- NOTE | 2022-12-30 07:29 | PM.IMPN ---
Progress Note: A&P Assessment and Plan (1) Sepsis: Code(s): A41.9 - Sepsis, unspecified organism Status: Acute Assessment and Plan: Sepsis likely from skin wound on left tibia and gastroenteritis. His symptoms have resolved. Skin wound is healing. Urine culture negative. 2/2 blood cultures positive: 2/2 are growing MRSA sensitive to vancomycin, clindamycin and doxycycline; 1 is growing VRE sensitive to Ampicillin and Linezolid. Repeat blood cultures 12/26 NGTD. WBC slightly higher today. CT chest/abd/pelvis showing no acute process. TTE showed no signs of vegetation, EF 55-60%, grade I diastolic dysfunction. Would continue monitoring repeat blood cultures. Monitor WBC. (2) Hemiplegia: Code(s): G81.90 - Hemiplegia, unspecified affecting unspecified side Status: Acute Assessment and Plan: Stable, PT/OT consultation (3) Type 2 diabetes mellitus with hyperglycemia, with long-term current use of insulin: Code(s): E11.65 - Type 2 diabetes mellitus with hyperglycemia; Z79.4 - medical terminologist (current) use of insulin Status: Acute Assessment and Plan: Accu-Cheks, sliding scale insulin, continue home medications, A1c is 7.2 Continue Lantus 40 units daily, NovoLog 12 units with meals (4) Diastolic heart failure: Code(s): I50.30 - Unspecified diastolic (congestive) heart failure Status: Acute Assessment and Plan: Appears euvolemic at this time (5) Acute kidney injury superimposed on CKD: Code(s): N17.9 - Acute kidney failure, unspecified; N18.9 - Chronic kidney disease, unspecified Status: Acute Assessment and Plan: Appears resolved, monitor (6) Wound of lower extremity: Qualifiers: Encounter type: initial encounter Laterality: left Qualified Code(s): S81.802A - Unspecified open wound, left lower leg, initial encounter Code(s): S81.809A - Unspecified open wound, unspecified lower leg, initial encounter Status: Acute Assessment and Plan: As above. Continue current wound care. (7) Depression: Code(s): F32.9 - Major depressive disorder, single episode, unspecified Status: Chronic Assessment and Plan: Stable, continue home meds (8) Neuropathy: Code(s): G62.9 - Polyneuropathy, unspecified Status: Acute Assessment and Plan: Stable, continue home meds (9) COPD (chronic obstructive pulmonary disease): Code(s): J44.9 - Chronic obstructive pulmonary disease, unspecified Status: Acute Assessment and Plan: With chronic respiratory failure, stable on his baseline 2 L of oxygen (10) Hyponatremia: Code(s): E87.1 - Hypo-osmolality and hyponatremia Status: Acute Assessment and Plan: Stable. Sodium 134 today Plan DVT prophylaxis with Eliquis Code status full code Subjective Date/time seen: 12/30/22 07:29 Interval history: 62yo male with left-sided hemiplegia from a prior CVA, DM and CHF is presenting from a nursing facility with nausea and vomiting and found to have sepsis from MRSA + VRE bacteremia, source unknown, does have tibial wound and perinephric stranding noted on initial CT, urine cx negative. Assuming care. Chart reviewed. No complaints. Slept well. No CP or SOB. Eating okay. Wears 3L O2 at the facility Exam Narrative: AF 97.5 131/65 88 18 100% 2L Gen - NARD lying almost flat in bed Chest - clear anteriorly and in the flanks CV - RRR S1/S2 Abd - Soft, NT/ND, Positive BS - Leigh secured draining clear yellow urine Ext - No pedal edema. right transmetatarsal amp Neuro - Alert and appropriate Psych - Nml mood and affect Skin - left LE abrasions and bruising noted Objective Data Vital Signs Vital Signs: Vital Signs - 24 hr 12/29/22 08:44 12/29/22 10:20 12/29/22 11:13 Temperature 98.4 F Pulse Rate 66 82 Respiratory Rate 18 Blood Pressure 128/62 Pulse Oxi
[2022-12-30] MEDS: FLUTICASONE/SALMETEROL 115-21 MCG INHALER 1 PUFF 2 PUFF INHALATION (07:33)
[2022-12-30 09:13] LABS: Glucose Point of Care 146 mg/dl (65-105)
[2022-12-30] MEDS: PANTOPRAZOLE 40 MG TABLET PO (09:32)
[2022-12-30] MEDS: PREGABALIN (*CRX) 50 MG CAPSULE 100 MG PO ×2 (09:32→21:33)
[2022-12-30] MEDS: MAGNESIUM OXIDE 400 MG TABLET PO ×2 (09:33→17:05)
[2022-12-30] MEDS: FINASTERIDE 5 MG TABLET PO (09:33)
[2022-12-30] MEDS: APIXABAN 5 MG TABLET PO ×2 (09:33→21:34)
[2022-12-30] MEDS: VENLAFAXINE HCL 37.5 MG TABLET PO ×2 (09:33→21:35)
[2022-12-30] MEDS: INSULIN GLARGINE (*BKC) 100 UNITS/ML 40 UNITS SUB-Q (09:34)
[2022-12-30] MEDS: INSULIN ASPART (*BKC) 100 UNITS/ML 12 UNITS SUB-Q ×3 (09:35→17:24)
[2022-12-30] MEDS: NEOMYCIN/POLYMYXIN/BACITRACIN OINTMENT 15 GM TUBE 1 APPLIC TOPICAL (09:38)
[2022-12-30] MEDS: METOPROLOL SUCCINATE EXT REL 25 MG TABCR PO ×2 (11:03→21:35)
[2022-12-30 12:22] LABS: Glucose Point of Care 107 mg/dl (65-105)
--- NOTE | 2022-12-30 13:32 | PC.NURSE ---
On 12/30/22, the student, [Josef Cowan], provided care and completed [facility] documentation on this patient. I have reviewed the student's documentation and agree with the findings.
[2022-12-30 17:23] LABS: Glucose Point of Care 162 mg/dl (65-105)
[2022-12-30] MEDS: SENNA/DOCUSATE SODIUM TABLET 2 TAB PO (21:33)
[2022-12-30] MEDS: ZOLPIDEM TARTRATE (*CRX) 5 MG TABLET 10 MG PO (21:33)
[2022-12-30] MEDS: GABAPENTIN 300 MG CAPSULE PO (21:34)
[2022-12-30] MEDS: MONTELUKAST SODIUM 10 MG TABLET PO (21:34)
[2022-12-30] MEDS: FENOFIBRATE 160 MG TABLET PO (21:34)
[2022-12-31] VITALS (8 sets, daily range): BP systolic 131–145; BP diastolic 60–70; PULSE 76–86; RESP 17–18; TEMP 36.3–36.8; O2SAT 97–98
[2022-12-31] MEDS: AMPICILLIN 2 GM/NS 100 ML 2 GM/100 ML BAG IVPB ×6 (02:49→22:05)
[2022-12-31 03:44] LABS: Basophils Absolute Auto 0.2 K/mm3 (0.0-0.1); Basophils Percent Auto 0.7 % (0.2-1.2); Eosinophils Absolute Auto 1.4 K/mm3 (0-0.3); Eosinophils Percent Auto 5.8 % (0-4.4); Hematocrit 37.8 % (42.0-52.0); Hemoglobin 12.7 g/dL (14.0-18.0); Immature Granulocyte Absolute 0.45 K/mm3 (0.00-0.031); Immature Granulocyte Percent A 1.9 % (0-0.5); Lymphocytes Absolute Auto 4.75 K/mm3 (0.9-3.2); Lymphocytes Percent Auto 20.1 % (18.3-44.2); Mean Corpuscular HGB Conc 33.6 g/dl (32-36); Mean Corpuscular Hemoglobin 31.4 pg (26-34); Mean Corpuscular Volume 93.6 fl (80-100); Mean Platelet Volume 10.3 fl (7.4-10.4); Monocytes Absolute Auto 1.9 K/mm3 (0.1-0.6); Monocytes Percent Auto 8.1 % (2.6-8.5); Neutrophils Percent Auto 63.4 % (45.5-73.1); Nucleated Red Blood Cells Perc 0.1 % (0.0-0.2); Platelet Count Result 824 k/mm3 (150-375); Red Blood Count 4.04 M/mm3 (4.6-6.20); Red Cell Distribution Width 13.8 % (11.5-14.5); White Blood Count 23.6 K/mm3 (4.5-10.0)
[2022-12-31 04:06] LABS: Alanine Aminotransferase 20 U/L (6-50); Albumin Level 3.5 g/dL (3.5-5.1); Alkaline Phosphatase 56 U/L (38-126); Anion Gap 3 mmol/L (8-16); Aspartate Amino Transferase 34 U/L (17-59); Bilirubin,Total 0.5 mg/dL (0.2-1.3); Blood Urea Nitrogen 19 mg/dL (9-20); Carbon Dioxide 29 mmol/L (22-30); Chloride 104 mmol/L (98-107); Estimated CRCL calculation 69 ml/min; Estimated Glomerular Filt Rate > 60; Glucose 116 mg/dL (65-110); Potassium 3.8 mmol/L (3.4-5.0); Sodium 136 mmol/L (137-145)
[2022-12-31 04:21] LABS: Vancomycin Trough 14.5 ug/mL (10.0-20.0)
--- NOTE | 2022-12-31 07:23 | PM.IMPN ---
Progress Note: A&P Assessment and Plan (1) Sepsis: Code(s): A41.9 - Sepsis, unspecified organism Status: Acute Assessment and Plan: Sepsis likely from skin wound on left tibia and gastroenteritis. His symptoms have resolved. Skin wound is healing. Urine culture negative. 2/2 blood cultures positive: 2/2 are growing MRSA sensitive to vancomycin, clindamycin and doxycycline; 1 is growing VRE sensitive to Ampicillin and Linezolid. Repeat blood cultures 12/26 NGTD. WBC higher today. CT chest/abd/pelvis 12/29 showing no acute process. TTE showed no signs of vegetation, EF 55-60%, grade I diastolic dysfunction. On chart review, WBC is chronically elevated mostly in the high teens to low-20's. Elevated WBC probably chronic but climbing for unclear reasons. Consider CDiff but seems less likely. Will add Linezolid and monitor. (2) Hemiplegia: Code(s): G81.90 - Hemiplegia, unspecified affecting unspecified side Status: Acute Assessment and Plan: Stable, PT/OT consultation (3) Type 2 diabetes mellitus with hyperglycemia, with long-term current use of insulin: Code(s): E11.65 - Type 2 diabetes mellitus with hyperglycemia; Z79.4 - petroleum terminal plant operator (current) use of insulin Status: Acute Assessment and Plan: A1c 7.2. The patient's blood glucose was reviewed on 12/31 Glucose remains well controlled. Continue AccuCheks covering with sliding scale. Hypoglycemia protocol available as needed. Continue Lantus 40 units daily, NovoLog 12 units with meals (4) Diastolic heart failure: Code(s): I50.30 - Unspecified diastolic (congestive) heart failure Status: Acute Assessment and Plan: Clinically euvolemic at this time (5) Acute kidney injury superimposed on CKD: Code(s): N17.9 - Acute kidney failure, unspecified; N18.9 - Chronic kidney disease, unspecified Status: Acute Assessment and Plan: Appears resolved, monitor (6) Wound of lower extremity: Qualifiers: Encounter type: initial encounter Laterality: left Qualified Code(s): S81.802A - Unspecified open wound, left lower leg, initial encounter Code(s): S81.809A - Unspecified open wound, unspecified lower leg, initial encounter Status: Acute Assessment and Plan: As above. Continue current wound care. (7) Depression: Code(s): F32.9 - Major depressive disorder, single episode, unspecified Status: Chronic Assessment and Plan: Stable, continue home meds (8) Neuropathy: Code(s): G62.9 - Polyneuropathy, unspecified Status: Acute Assessment and Plan: Stable, continue home meds (9) COPD (chronic obstructive pulmonary disease): Code(s): J44.9 - Chronic obstructive pulmonary disease, unspecified Status: Acute Assessment and Plan: With chronic respiratory failure, stable on his baseline 2 L of oxygen (10) Hyponatremia: Code(s): E87.1 - Hypo-osmolality and hyponatremia Status: Acute Assessment and Plan: Stable. Sodium 136 today Plan DVT prophylaxis with Eliquis Code status full code Subjective Date/time seen: 12/31/22 07:23 Interval history: 62yo male with left-sided hemiplegia from a prior CVA, DM and CHF is presenting from a nursing facility with nausea and vomiting and found to have sepsis from MRSA + VRE bacteremia, source unknown, does have tibial wound and perinephric stranding noted on initial CT, urine cx negative. Slept poorly last night due to noise. He denies CP or SOB. He does not have a chronic Leigh. He states that his WBC is always elevated due to myelofibrosis. Having loose stools but difficult quantifying. Exam Narrative: AF 98.1 134/60 78 17 98% 2L Gen - NARD lying semi-recumbent in bed Chest - few basilar rhonchi o/w clear, nml RR CV - RRR S1/S2 Abd - Soft, NT/ND, Positive BS - Leigh secured draining clear yellow urine Ext -
--- NOTE | 2022-12-31 07:57 | PCRCNOTE ---
pt refusing 0800 Advair. pt states his lungs are fine. when educated that inhaler is not a rescue inhaler, but a maintenance drug to keep his lungs stable, pt stated he does not care and still would not take it. RT informed pt that if he changed his mind to please call. pt stated he will not change his mind about the inhaler.
[2022-12-31 08:18] LABS: Glucose Point of Care 101 mg/dl (65-105)
[2022-12-31] MEDS: METOPROLOL SUCCINATE EXT REL 25 MG TABCR PO ×2 (09:33→22:01)
[2022-12-31] MEDS: PREGABALIN (*CRX) 50 MG CAPSULE 100 MG PO ×2 (09:33→22:03)
[2022-12-31] MEDS: LINEZOLID 600 MG TABLET PO ×2 (09:33→22:02)
[2022-12-31] MEDS: MAGNESIUM OXIDE 400 MG TABLET PO ×2 (09:34→16:06)
[2022-12-31] MEDS: FINASTERIDE 5 MG TABLET PO (09:34)
[2022-12-31] MEDS: APIXABAN 5 MG TABLET PO ×2 (09:34→22:00)
[2022-12-31] MEDS: NEOMYCIN/POLYMYXIN/BACITRACIN OINTMENT 15 GM TUBE 1 APPLIC TOPICAL (09:35)
[2022-12-31] MEDS: INSULIN GLARGINE (*BKC) 100 UNITS/ML 40 UNITS SUB-Q (09:35)
--- NOTE | 2022-12-31 10:39 | PCNWS ---
Weekly nutritional screen. Patient is tolerating current diet with adequate intake. No weight loss reported. No nutritional needs at this time.
[2022-12-31 12:35] LABS: Glucose Point of Care 216 mg/dl (65-105)
[2022-12-31 12:42] LABS: Glucose Point of Care 95 mg/dl (65-105)
[2022-12-31 17:39] LABS: Glucose Point of Care 201 mg/dl (65-105)
[2022-12-31] MEDS: FENOFIBRATE 160 MG TABLET PO (22:01)
[2022-12-31] MEDS: GABAPENTIN 300 MG CAPSULE PO (22:02)
[2022-12-31] MEDS: MONTELUKAST SODIUM 10 MG TABLET PO (22:02)
[2022-12-31] MEDS: SENNA/DOCUSATE SODIUM TABLET 2 TAB PO (22:03)
[2022-12-31 23:02] LABS: Glucose Point of Care 149 mg/dl (65-105)
[2023-01-01] VITALS (8 sets, daily range): BP systolic 140–167; BP diastolic 57–67; PULSE 73–99; RESP 18–20; TEMP 36.4–36.9; O2SAT 96–100
[2023-01-01] MEDS: AMPICILLIN 2 GM/NS 100 ML 2 GM/100 ML BAG IVPB ×6 (03:15→21:32)
[2023-01-01 06:01] LABS: Basophils Absolute Auto 0.1 K/mm3 (0.0-0.1); Basophils Percent Auto 0.6 % (0.2-1.2); Eosinophils Absolute Auto 1.3 K/mm3 (0-0.3); Eosinophils Percent Auto 6.6 % (0-4.4); Hemoglobin 13.1 g/dL (14.0-18.0); Immature Granulocyte Absolute 0.34 K/mm3 (0.00-0.031); Immature Granulocyte Percent A 1.8 % (0-0.5); Lymphocytes Absolute Auto 3.67 K/mm3 (0.9-3.2); Lymphocytes Percent Auto 19.4 % (18.3-44.2); Mean Corpuscular HGB Conc 33.6 g/dl (32-36); Mean Corpuscular Hemoglobin 31.6 pg (26-34); Mean Corpuscular Volume 94.2 fl (80-100); Mean Platelet Volume 10.4 fl (7.4-10.4); Monocytes Absolute Auto 1.4 K/mm3 (0.1-0.6); Monocytes Percent Auto 7.5 % (2.6-8.5); Neutrophils Absolute Auto 12.1 K/mm3 (1.3-6.7); Neutrophils Percent Auto 64.1 % (45.5-73.1); Nucleated Red Blood Cells Perc 0.1 % (0.0-0.2); Platelet Count Result 841 k/mm3 (150-375); Red Blood Count 4.14 M/mm3 (4.6-6.20)
[2023-01-01 06:14] LABS: Alanine Aminotransferase 19 U/L (6-50); Albumin Level 3.8 g/dL (3.5-5.1); Alkaline Phosphatase 55 U/L (38-126); Anion Gap 4 mmol/L (8-16); Aspartate Amino Transferase 23 U/L (17-59); Bilirubin,Total 0.4 mg/dL (0.2-1.3); Blood Urea Nitrogen 19 mg/dL (9-20); Calcium 9.4 mg/dL (8.4-10.2); Carbon Dioxide 26 mmol/L (22-30); Chloride 104 mmol/L (98-107); Estimated CRCL calculation 64 ml/min; Estimated Glomerular Filt Rate > 60; Glucose 120 mg/dL (65-110); Potassium 3.7 mmol/L (3.4-5.0); Sodium 134 mmol/L (137-145)
[2023-01-01 08:18] LABS: Glucose Point of Care 94 mg/dl (65-105)
[2023-01-01] MEDS: PANTOPRAZOLE 40 MG TABLET PO (09:53)
[2023-01-01] MEDS: LINEZOLID 600 MG TABLET PO ×2 (09:53→20:39)
[2023-01-01] MEDS: MAGNESIUM OXIDE 400 MG TABLET PO ×2 (09:53→16:42)
[2023-01-01] MEDS: FINASTERIDE 5 MG TABLET PO (09:53)
[2023-01-01] MEDS: APIXABAN 5 MG TABLET PO ×2 (09:53→20:37)
[2023-01-01] MEDS: METOPROLOL SUCCINATE EXT REL 25 MG TABCR PO ×2 (09:54→20:39)
[2023-01-01] MEDS: NEOMYCIN/POLYMYXIN/BACITRACIN OINTMENT 15 GM TUBE 1 APPLIC TOPICAL (09:55)
[2023-01-01] MEDS: INSULIN GLARGINE (*BKC) 100 UNITS/ML 40 UNITS SUB-Q (09:56)
[2023-01-01] MEDS: PREGABALIN (*CRX) 50 MG CAPSULE 100 MG PO ×2 (09:58→20:47)
--- NOTE | 2023-01-01 12:04 | PM.IMPN ---
Progress Note: A&P Assessment and Plan (1) Sepsis: Code(s): A41.9 - Sepsis, unspecified organism Status: Acute Assessment and Plan: Sepsis likely from skin wound on left tibia and gastroenteritis. His symptoms have resolved. Skin wound is healing. Urine culture negative. Blood cultures 12/24 positive: 2/2 growing MRSA sensitive to vancomycin, clindamycin and doxycycline; 1/2 is growing VRE sensitive to Ampicillin and Linezolid. Received Zosyn, Vanco and Aztreonam on admission. Repeat blood cultures 12/26 Negative. Counting from the negative BCx, currently on Day 7 of Vanco and Day 5 of Ampicillin. WBC was higher so linezolid added 12/31 (currently Day 2). CT chest/abd/pelvis 12/29 showing no acute process. TTE showed no signs of vegetation, EF 55-60%, grade I diastolic dysfunction. On chart review, WBC is chronically elevated mostly in the high teens to low-20's. Elevated WBC probably chronic but climbing for unclear reasons. Consider CDiff but seems less likely. WBC back down now. Discussed with PharmD ID with plans for Ampicillin for 9 more days and Linezolid for [address] midline[address] (2) Hemiplegia: Code(s): G81.90 - Hemiplegia, unspecified affecting unspecified side Status: Acute Assessment and Plan: Stable, Continue PT/OT (3) Type 2 diabetes mellitus with hyperglycemia, with long-term current use of insulin: Code(s): E11.65 - Type 2 diabetes mellitus with hyperglycemia; Z79.4 - continuous churn buttermaker (current) use of insulin Status: Acute Assessment and Plan: A1c 7.2. The patient's blood glucose was reviewed on 01/01 Glucose was low so mealtime insulin held. Glucose remains well controlled. Continue AccuCheks covering with sliding scale. Hypoglycemia protocol available as needed. Continue Lantus 40 units daily (4) Diastolic heart failure: Code(s): I50.30 - Unspecified diastolic (congestive) heart failure Status: Acute Assessment and Plan: Clinically euvolemic at this time (5) Acute kidney injury superimposed on CKD: Code(s): N17.9 - Acute kidney failure, unspecified; N18.9 - Chronic kidney disease, unspecified Status: Acute Assessment and Plan: Renal function better. Follow. (6) Wound of lower extremity: Qualifiers: Encounter type: initial encounter Laterality: left Qualified Code(s): S81.802A - Unspecified open wound, left lower leg, initial encounter Code(s): S81.809A - Unspecified open wound, unspecified lower leg, initial encounter Status: Acute Assessment and Plan: As above. Continue current wound care. (7) Depression: Code(s): F32.9 - Major depressive disorder, single episode, unspecified Status: Chronic Assessment and Plan: Stable. Effexor on hold. (8) Neuropathy: Code(s): G62.9 - Polyneuropathy, unspecified Status: Acute Assessment and Plan: Stable, continue home meds (9) COPD (chronic obstructive pulmonary disease): Code(s): J44.9 - Chronic obstructive pulmonary disease, unspecified Status: Acute Assessment and Plan: With chronic respiratory failure, stable on his baseline 2 L of oxygen (10) Hyponatremia: Code(s): E87.1 - Hypo-osmolality and hyponatremia Status: Acute Assessment and Plan: Stable. Sodium 134 today Plan DVT prophylaxis with Eliquis Code status full code Subjective Date/time seen: 01/01/23 12:04 Interval history: 62yo male with left-sided hemiplegia from a prior CVA, DM and CHF is presenting from a nursing facility with nausea and vomiting and found to have sepsis from MRSA + VRE bacteremia, source unknown, does have tibial wound and perinephric stranding noted on initial CT, urine cx negative. Feels well. No CP or SOB. Having 3-4 loose stools per day. No abd pain. RN states more stool frequency bu not diarrhea. Exam Narrative: AF 97.6 1
[2023-01-01 12:46] LABS: Glucose Point of Care 153 mg/dl (65-105)
[2023-01-01] MEDS: LIDOCAINE HCL 1% PF INJ 5 ML VIAL INFILTRATE (14:47)
[2023-01-01 17:36] LABS: Glucose Point of Care 150 mg/dl (65-105)
[2023-01-01] MEDS: FENOFIBRATE 160 MG TABLET PO (20:38)
[2023-01-01] MEDS: GABAPENTIN 300 MG CAPSULE PO (20:38)
[2023-01-01] MEDS: MONTELUKAST SODIUM 10 MG TABLET PO (20:40)
[2023-01-01] MEDS: ACETAMINOPHEN 325 MG TABLET 650 MG PO (20:41)
[2023-01-01] MEDS: ZOLPIDEM TARTRATE (*CRX) 5 MG TABLET 10 MG PO (20:41)
[2023-01-01] MEDS: FLUTICASONE/SALMETEROL 115-21 MCG INHALER 1 PUFF 2 PUFF INHALATION (20:45)
[2023-01-01] MEDS: diazePAM (*CRX) 2 MG TABLET PO (20:47)
[2023-01-01] MEDS: SENNA/DOCUSATE SODIUM TABLET 2 TAB PO (20:53)
[2023-01-01] MEDS: CENTRAL LINE FLUSH 10 ML IV PUSH (21:33)
[2023-01-02] MEDS: AMPICILLIN 2 GM/NS 100 ML 2 GM/100 ML BAG IVPB ×6 (01:27→21:36)
[2023-01-02 05:25] LABS: Basophils Absolute Auto 0.1 K/mm3 (0.0-0.1); Basophils Percent Auto 0.6 % (0.2-1.2); Eosinophils Absolute Auto 0.9 K/mm3 (0-0.3); Eosinophils Percent Auto 5.2 % (0-4.4); Hematocrit 35.9 % (42.0-52.0); Hemoglobin 12.1 g/dL (14.0-18.0); Immature Granulocyte Absolute 0.18 K/mm3 (0.00-0.031); Lymphocytes Percent Auto 19.5 % (18.3-44.2); Mean Corpuscular HGB Conc 33.7 g/dl (32-36); Mean Corpuscular Hemoglobin 31.3 pg (26-34); Mean Corpuscular Volume 92.8 fl (80-100); Mean Platelet Volume 10.5 fl (7.4-10.4); Monocytes Absolute Auto 1.4 K/mm3 (0.1-0.6); Neutrophils Absolute Auto 11.8 K/mm3 (1.3-6.7); Neutrophils Percent Auto 65.7 % (45.5-73.1); Nucleated Red Blood Cells Perc 0.2 % (0.0-0.2); Platelet Count Result 812 k/mm3 (150-375); Red Blood Count 3.87 M/mm3 (4.6-6.20); White Blood Count 17.9 K/mm3 (4.5-10.0)
[2023-01-02] MEDS: CENTRAL LINE FLUSH 10 ML IV PUSH ×3 (05:43→21:39)
[2023-01-02 05:49] LABS: Anion Gap 4 mmol/L (8-16); Blood Urea Nitrogen 18 mg/dL (9-20); Calcium 9.1 mg/dL (8.4-10.2); Carbon Dioxide 27 mmol/L (22-30); Chloride 106 mmol/L (98-107); Estimated CRCL calculation 69 ml/min; Estimated Glomerular Filt Rate > 60; Glucose 203 mg/dL (65-110); Potassium 4.3 mmol/L (3.4-5.0); Sodium 137 mmol/L (137-145)
[2023-01-02 06:00] VITALS: BP 150/64; PULSE 80; RESP 18; TEMP 36.2; O2SAT 100
[2023-01-02 08:53] LABS: Glucose Point of Care 176 mg/dl (65-105)
[2023-01-02] MEDS: PREGABALIN (*CRX) 50 MG CAPSULE 100 MG PO ×2 (09:59→21:37)
[2023-01-02] MEDS: APIXABAN 5 MG TABLET PO ×2 (09:59→21:38)
[2023-01-02] MEDS: INSULIN GLARGINE (*BKC) 100 UNITS/ML 40 UNITS SUB-Q (09:59)
[2023-01-02] MEDS: PANTOPRAZOLE 40 MG TABLET PO (10:00)
[2023-01-02] MEDS: FINASTERIDE 5 MG TABLET PO (10:00)
[2023-01-02] MEDS: METOPROLOL SUCCINATE EXT REL 25 MG TABCR PO ×2 (10:01→21:38)
[2023-01-02] MEDS: LINEZOLID 600 MG TABLET PO ×2 (10:01→21:38)
[2023-01-02] MEDS: MAGNESIUM OXIDE 400 MG TABLET PO ×2 (10:02→17:37)
[2023-01-02] MEDS: NEOMYCIN/POLYMYXIN/BACITRACIN OINTMENT 15 GM TUBE 1 APPLIC TOPICAL (10:02)
[2023-01-02 12:03] LABS: Glucose Point of Care 276 mg/dl (65-105)
--- NOTE | 2023-01-02 12:25 | PCRCNOTE ---
Window of time for administration has passed. See next scheduled administration.
[2023-01-02 14:00] VITALS: BP 159/69; PULSE 92; RESP 18; TEMP 36.4; O2SAT 98
[2023-01-02 16:45] LABS: Vancomycin Trough 15.1 ug/mL (10.0-20.0)
--- NOTE | 2023-01-02 16:50 | PM.IMPN ---
Progress Note: A&P Assessment and Plan (1) Sepsis: Code(s): A41.9 - Sepsis, unspecified organism Status: Acute Assessment and Plan: Sepsis likely from skin wound on left tibia and less likely gastroenteritis. His symptoms have resolved. Skin wound is healing. Urine culture negative. Blood cultures 12/24 positive: 2/2 growing MRSA sensitive to vancomycin, clindamycin and doxycycline; 1/2 is growing VRE sensitive to Ampicillin and Linezolid. Received Zosyn, Vanco and Aztreonam on admission. Repeat blood cultures 12/26 Negative. Ampicillin started 12/[address] chest/abd/pelvis 12/29 showing no acute process. TTE showed no signs of vegetation, EF 55-60%, grade I diastolic dysfunction. WBC was higher so linezolid added 12/31 (currently Day 3). On chart review, WBC is chronically elevated mostly in the high teens to low-20's. Elevated WBC probably chronic but was climbing for unclear reasons. Consider CDiff but seems less likely. WBC back down now to 18K. Discussed with PharmD ID. Continue current abx. Plan for Ampicillin through 01/11 and Linezolid for [address]. Awaiting placement. (2) Hemiplegia: Code(s): G81.90 - Hemiplegia, unspecified affecting unspecified side Status: Acute Assessment and Plan: Stable, Continue PT/OT (3) Type 2 diabetes mellitus with hyperglycemia, with long-term current use of insulin: Code(s): E11.65 - Type 2 diabetes mellitus with hyperglycemia; Z79.4 - intermediate accountant (current) use of insulin Status: Acute Assessment and Plan: A1c 7.2. The patient's blood glucose was reviewed on 01/02 Glucose was low so mealtime insulin held. Glucose remains reasonably well controlled. Continue AccuCheks covering with sliding scale. Hypoglycemia protocol available as needed. Continue Lantus 40 units daily (4) Diastolic heart failure: Code(s): I50.30 - Unspecified diastolic (congestive) heart failure Status: Acute Assessment and Plan: Clinically euvolemic at this time (5) Acute kidney injury superimposed on CKD: Code(s): N17.9 - Acute kidney failure, unspecified; N18.9 - Chronic kidney disease, unspecified Status: Acute Assessment and Plan: Renal function better. Follow. (6) Wound of lower extremity: Qualifiers: Encounter type: initial encounter Laterality: left Qualified Code(s): S81.802A - Unspecified open wound, left lower leg, initial encounter Code(s): S81.809A - Unspecified open wound, unspecified lower leg, initial encounter Status: Acute Assessment and Plan: As above. Continue current wound care. (7) Depression: Code(s): F32.9 - Major depressive disorder, single episode, unspecified Status: Chronic Assessment and Plan: Stable. Effexor on hold. (8) Neuropathy: Code(s): G62.9 - Polyneuropathy, unspecified Status: Acute Assessment and Plan: Stable, continue home meds (9) COPD (chronic obstructive pulmonary disease): Code(s): J44.9 - Chronic obstructive pulmonary disease, unspecified Status: Acute Assessment and Plan: With chronic respiratory failure, stable on his baseline 2 L of oxygen (10) Hyponatremia: Code(s): E87.1 - Hypo-osmolality and hyponatremia Status: Acute Assessment and Plan: Stable. Sodium 137 today Plan DVT prophylaxis with Eliquis Code status full code Subjective Date/time seen: 01/02/23 16:50 Interval history: 62yo male with left-sided hemiplegia from a prior CVA, DM and CHF is presenting from a nursing facility with nausea and vomiting and found to have sepsis from MRSA + VRE bacteremia. Source unknown but does have tibial wound and perinephric stranding noted on initial CT but urine cx negative. No complaints. No CP or SOB. Exam Narrative: AF 97.5 159/69 92 18 98% 2L Gen - NARD Chest - CTA bilaterally. nml RR C
[2023-01-02 17:28] LABS: Glucose Point of Care 162 mg/dl (65-105)
[2023-01-02] MEDS: ARTIFICIAL TEARS OPHTH SOLN 15 ML BOTTLE 1 DROP EACH EYE (17:37)
[2023-01-02 19:33] VITALS: BP 146/65; PULSE 89; RESP 18; TEMP 36.2; O2SAT 100
[2023-01-02 20:00] VITALS: PULSE 81; RESP 18; O2SAT 100
[2023-01-02] MEDS: GABAPENTIN 300 MG CAPSULE PO (21:37)
[2023-01-02] MEDS: SENNA/DOCUSATE SODIUM TABLET 2 TAB PO (21:37)
[2023-01-02] MEDS: MONTELUKAST SODIUM 10 MG TABLET PO (21:37)
[2023-01-02 21:38] VITALS: PULSE 81
[2023-01-02] MEDS: FENOFIBRATE 160 MG TABLET PO (21:38)
[2023-01-03] MEDS: AMPICILLIN 2 GM/NS 100 ML 2 GM/100 ML BAG IVPB ×6 (02:59→21:16)
[2023-01-03 03:29] VITALS: BP 150/70; PULSE 79; RESP 18; TEMP 36.4; O2SAT 99
[2023-01-03] MEDS: CENTRAL LINE FLUSH 10 ML IV PUSH ×3 (06:34→21:19)
[2023-01-03 09:17] VITALS: O2SAT 93
[2023-01-03] MEDS: FLUTICASONE/SALMETEROL 115-21 MCG INHALER 1 PUFF 2 PUFF INHALATION (09:17)
[2023-01-03] MEDS: INSULIN GLARGINE (*BKC) 100 UNITS/ML 40 UNITS SUB-Q (09:39)
[2023-01-03] MEDS: FINASTERIDE 5 MG TABLET PO (09:40)
[2023-01-03] MEDS: APIXABAN 5 MG TABLET PO ×2 (09:40→20:08)
[2023-01-03] MEDS: PREGABALIN (*CRX) 50 MG CAPSULE 100 MG PO ×2 (09:40→20:06)
[2023-01-03] MEDS: PANTOPRAZOLE 40 MG TABLET PO (09:41)
[2023-01-03] MEDS: LINEZOLID 600 MG TABLET PO ×2 (09:41→20:07)
[2023-01-03] MEDS: MAGNESIUM OXIDE 400 MG TABLET PO ×2 (09:41→18:08)
[2023-01-03] MEDS: METOPROLOL SUCCINATE EXT REL 25 MG TABCR PO ×2 (09:41→20:08)
[2023-01-03] MEDS: ERGOCALCIFEROL 50,000 UNITS CAPSULE 50000 UNITS PO (09:41)
[2023-01-03] MEDS: NEOMYCIN/POLYMYXIN/BACITRACIN OINTMENT 15 GM TUBE 1 APPLIC TOPICAL (09:42)
[2023-01-03 09:59] LABS: Glucose Point of Care 146 mg/dl (65-105)
[2023-01-03 12:14] LABS: Glucose Point of Care 197 mg/dl (65-105)
[2023-01-03 14:00] VITALS: BP 140/77; PULSE 85; RESP 16; TEMP 36.7; O2SAT 98
[2023-01-03 16:44] LABS: Glucose Point of Care 169 mg/dl (65-105)
--- NOTE | 2023-01-03 18:32 | PM.IMPN ---
Progress Note: A&P Assessment and Plan (1) Sepsis: Code(s): A41.9 - Sepsis, unspecified organism Status: Acute Assessment and Plan: Sepsis likely from skin wound on left tibia and less likely gastroenteritis. His symptoms have resolved. Skin wound is healing. Urine culture negative. Blood cultures 12/24 positive: 2/2 growing MRSA sensitive to vancomycin, clindamycin and doxycycline; 1/2 is growing VRE sensitive to Ampicillin and Linezolid. Received Zosyn, Vanco and Aztreonam on admission. Repeat blood cultures 12/26 Negative. Ampicillin started 12/[address] chest/abd/pelvis 12/29 showing no acute process. TTE showed no signs of vegetation, EF 55-60%, grade I diastolic dysfunction. WBC was higher so linezolid added 12/31 (currently Day 4). On chart review, WBC is chronically elevated mostly in the high teens to low-20's. Elevated WBC probably chronic but was climbing for unclear reasons. Consider CDiff but seems less likely. WBC back down now to 18K. Discussed with PharmD ID. Continue current abx. Plan for Ampicillin through 01/11 and Linezolid for [address]. Awaiting placement. Will stop Vanco (2) Hemiplegia: Code(s): G81.90 - Hemiplegia, unspecified affecting unspecified side Status: Acute Assessment and Plan: Stable, Continue PT/OT (3) Type 2 diabetes mellitus with hyperglycemia, with long-term current use of insulin: Code(s): E11.65 - Type 2 diabetes mellitus with hyperglycemia; Z79.4 - computer terminal operator (current) use of insulin Status: Acute Assessment and Plan: A1c 7.2. The patient's blood glucose was reviewed on 01/03 Glucose was low so mealtime insulin held. Glucose remains reasonably well controlled. Continue AccuCheks covering with sliding scale. Hypoglycemia protocol available as needed. Continue Lantus 40 units daily (4) Diastolic heart failure: Code(s): I50.30 - Unspecified diastolic (congestive) heart failure Status: Acute Assessment and Plan: Clinically euvolemic at this time (5) Acute kidney injury superimposed on CKD: Code(s): N17.9 - Acute kidney failure, unspecified; N18.9 - Chronic kidney disease, unspecified Status: Acute Assessment and Plan: Renal function better. Follow intermittently. (6) Wound of lower extremity: Qualifiers: Encounter type: initial encounter Laterality: left Qualified Code(s): S81.802A - Unspecified open wound, left lower leg, initial encounter Code(s): S81.809A - Unspecified open wound, unspecified lower leg, initial encounter Status: Acute Assessment and Plan: As above. Continue current wound care. (7) Depression: Code(s): F32.9 - Major depressive disorder, single episode, unspecified Status: Chronic Assessment and Plan: Stable. Effexor on hold. (8) Neuropathy: Code(s): G62.9 - Polyneuropathy, unspecified Status: Acute Assessment and Plan: Stable, continue home meds (9) COPD (chronic obstructive pulmonary disease): Code(s): J44.9 - Chronic obstructive pulmonary disease, unspecified Status: Acute Assessment and Plan: With chronic respiratory failure, stable on his baseline 2 L of oxygen (10) Hyponatremia: Code(s): E87.1 - Hypo-osmolality and hyponatremia Status: Acute Assessment and Plan: Stable. Sodium 137 yesterday Plan DVT prophylaxis with Eliquis Code status full code Subjective Date/time seen: 01/03/23 18:32 Interval history: 62yo male with left-sided hemiplegia from a prior CVA, DM and CHF is presenting from a nursing facility with nausea and vomiting and found to have sepsis from MRSA + VRE bacteremia. Source unknown but does have tibial wound and perinephric stranding noted on initial CT but urine cx negative. No issues overnight. He feels well. No CP or SOB. No n/v. Eating well. Still with loose stools
[2023-01-03 19:33] VITALS: BP 129/58; PULSE 95; RESP 20; TEMP 36.6; O2SAT 98
[2023-01-03 19:52] LABS: Glucose Point of Care 192 mg/dl (65-105)
[2023-01-03 20:08] VITALS: PULSE 95
[2023-01-03] MEDS: FENOFIBRATE 160 MG TABLET PO (20:08)
[2023-01-03] MEDS: GABAPENTIN 300 MG CAPSULE PO (20:08)
[2023-01-04] VITALS (8 sets, daily range): BP systolic 126–138; BP diastolic 53–94; PULSE 82–105; RESP 16–18; TEMP 36.3–36.7; O2SAT 94–100
[2023-01-04] MEDS: AMPICILLIN 2 GM/NS 100 ML 2 GM/100 ML BAG IVPB ×6 (01:07→21:23)
[2023-01-04 05:02] LABS: Basophils Absolute Auto 0.1 K/mm3 (0.0-0.1); Basophils Percent Auto 0.6 % (0.2-1.2); Eosinophils Absolute Auto 0.7 K/mm3 (0-0.3); Eosinophils Percent Auto 3.8 % (0-4.4); Hematocrit 37.5 % (42.0-52.0); Hemoglobin 12.5 g/dL (14.0-18.0); Immature Granulocyte Percent A 0.6 % (0-0.5); Lymphocytes Absolute Auto 2.95 K/mm3 (0.9-3.2); Lymphocytes Percent Auto 16.9 % (18.3-44.2); Mean Corpuscular HGB Conc 33.3 g/dl (32-36); Mean Corpuscular Hemoglobin 31.1 pg (26-34); Mean Corpuscular Volume 93.3 fl (80-100); Mean Platelet Volume 10.4 fl (7.4-10.4); Monocytes Absolute Auto 1.5 K/mm3 (0.1-0.6); Monocytes Percent Auto 8.4 % (2.6-8.5); Neutrophils Absolute Auto 12.2 K/mm3 (1.3-6.7); Neutrophils Percent Auto 69.7 % (45.5-73.1); Platelet Count Result 783 k/mm3 (150-375); Red Blood Count 4.02 M/mm3 (4.6-6.20); Red Cell Distribution Width 14.1 % (11.5-14.5); White Blood Count 17.5 K/mm3 (4.5-10.0)
[2023-01-04] MEDS: CENTRAL LINE FLUSH 10 ML IV PUSH ×3 (05:02→21:24)
[2023-01-04 05:14] LABS: Alanine Aminotransferase 17 U/L (6-50); Albumin Level 3.9 g/dL (3.5-5.1); Alkaline Phosphatase 61 U/L (38-126); Anion Gap 5 mmol/L (8-16); Aspartate Amino Transferase 26 U/L (17-59); Bilirubin,Total 0.6 mg/dL (0.2-1.3); Blood Urea Nitrogen 20 mg/dL (9-20); Calcium 8.9 mg/dL (8.4-10.2); Carbon Dioxide 26 mmol/L (22-30); Chloride 106 mmol/L (98-107); Estimated CRCL calculation 69 ml/min; Estimated Glomerular Filt Rate > 60; Glucose 203 mg/dL (65-110); Potassium 4.3 mmol/L (3.4-5.0); Sodium 137 mmol/L (137-145)
--- NOTE | 2023-01-04 08:22 | PM.IMPN ---
Progress Note: A&P Assessment and Plan (1) Sepsis: Code(s): A41.9 - Sepsis, unspecified organism Status: Acute Assessment and Plan: Sepsis likely from skin wound on left tibia and less likely gastroenteritis. His symptoms have resolved. Skin wound is healing. Urine culture negative. Blood cultures 12/24 positive: 2/2 growing MRSA sensitive to vancomycin, clindamycin and doxycycline; 1/2 is growing VRE sensitive to Ampicillin and Linezolid. Received Zosyn, Vanco and Aztreonam on admission. Repeat blood cultures 12/26 Negative. Ampicillin started 12/[address] chest/abd/pelvis 12/29 showing no acute process. TTE showed no signs of vegetation, EF 55-60%, grade I diastolic dysfunction. WBC was higher so linezolid added 12/31 (currently Day 4). On chart review, WBC is chronically elevated mostly in the high teens to low-20's. Elevated WBC probably chronic but was climbing for unclear reasons. Consider CDiff but seems less likely. WBC back down now to 17.5K. Discussed with PharmD ID. Plan for 2 weeks from negative BCx on 12/26. Continue current abx with Ampicillin and Linezolid through 01/08. Midline in place. Awaiting placement. (2) Hemiplegia: Code(s): G81.90 - Hemiplegia, unspecified affecting unspecified side Status: Acute Assessment and Plan: Stable, Continue PT/OT (3) Type 2 diabetes mellitus with hyperglycemia, with long-term current use of insulin: Code(s): E11.65 - Type 2 diabetes mellitus with hyperglycemia; Z79.4 - termite exterminator helper (current) use of insulin Status: Acute Assessment and Plan: A1c 7.2. The patient's blood glucose was reviewed on 01/04 Glucose was low so mealtime insulin held. Glucose remains reasonably well controlled. Continue AccuCheks covering with sliding scale. Hypoglycemia protocol available as needed. Continue Lantus 40 units daily (4) Diastolic heart failure: Code(s): I50.30 - Unspecified diastolic (congestive) heart failure Status: Acute Assessment and Plan: Clinically euvolemic at this time (5) Acute kidney injury superimposed on CKD: Code(s): N17.9 - Acute kidney failure, unspecified; N18.9 - Chronic kidney disease, unspecified Status: Acute Assessment and Plan: Renal function normal. Follow intermittently. (6) Wound of lower extremity: Qualifiers: Encounter type: initial encounter Laterality: left Qualified Code(s): S81.802A - Unspecified open wound, left lower leg, initial encounter Code(s): S81.809A - Unspecified open wound, unspecified lower leg, initial encounter Status: Acute Assessment and Plan: As above. Continue current wound care. (7) Depression: Code(s): F32.9 - Major depressive disorder, single episode, unspecified Status: Chronic Assessment and Plan: Stable. Effexor on hold. (8) Neuropathy: Code(s): G62.9 - Polyneuropathy, unspecified Status: Acute Assessment and Plan: Stable, continue home meds (9) COPD (chronic obstructive pulmonary disease): Code(s): J44.9 - Chronic obstructive pulmonary disease, unspecified Status: Acute Assessment and Plan: With chronic respiratory failure, stable on his baseline 2 L of oxygen (10) Hyponatremia: Code(s): E87.1 - Hypo-osmolality and hyponatremia Status: Acute Assessment and Plan: Stable. Sodium 137 today Plan DVT prophylaxis with Eliquis Code status full code Disp: Awaiting placement. Subjective Date/time seen: 01/04/23 08:22 Interval history: 62yo male with left-sided hemiplegia from a prior CVA, DM and CHF is presenting from a nursing facility with nausea and vomiting and found to have sepsis from MRSA + VRE bacteremia. No issues overnight. He slept well but feels tired today. No chest pain or shortness of breath. No nausea or vomiting. Still having loose stools he feels is related to the van
[2023-01-04 08:29] LABS: Glucose Point of Care 170 mg/dl (65-105)
[2023-01-04] MEDS: NEOMYCIN/POLYMYXIN/BACITRACIN OINTMENT 15 GM TUBE 1 APPLIC TOPICAL (09:36)
[2023-01-04] MEDS: MAGNESIUM OXIDE 400 MG TABLET PO ×2 (09:36→16:59)
[2023-01-04] MEDS: PANTOPRAZOLE 40 MG TABLET PO (09:36)
[2023-01-04] MEDS: FINASTERIDE 5 MG TABLET PO (09:36)
[2023-01-04] MEDS: PREGABALIN (*CRX) 50 MG CAPSULE 100 MG PO ×2 (09:36→21:23)
[2023-01-04] MEDS: LINEZOLID 600 MG TABLET PO ×2 (09:36→21:23)
[2023-01-04] MEDS: APIXABAN 5 MG TABLET PO ×2 (09:36→21:22)
[2023-01-04] MEDS: METOPROLOL SUCCINATE EXT REL 25 MG TABCR PO ×2 (09:37→21:23)
[2023-01-04] MEDS: INSULIN GLARGINE (*BKC) 100 UNITS/ML 40 UNITS SUB-Q (09:38)
[2023-01-04] MEDS: LOPERAMIDE HCL 2 MG CAPSULE PO (09:40)
[2023-01-04 12:26] LABS: Glucose Point of Care 151 mg/dl (65-105)
[2023-01-04] MEDS: diazePAM (*CRX) 2 MG TABLET PO (14:55)
[2023-01-04 16:42] LABS: Glucose Point of Care 139 mg/dl (65-105)
[2023-01-04] MEDS: FENOFIBRATE 160 MG TABLET PO (21:22)
[2023-01-04] MEDS: GABAPENTIN 300 MG CAPSULE PO (21:23)
[2023-01-04 22:19] LABS: Glucose Point of Care 104 mg/dl (65-105)
[2023-01-05] VITALS (7 sets, daily range): BP systolic 134–159; BP diastolic 59–64; PULSE 81–91; RESP 18–20; TEMP 36.2–36.8; O2SAT 96–100
[2023-01-05] MEDS: ACETAMINOPHEN 325 MG TABLET 650 MG PO (00:09)
[2023-01-05] MEDS: AMPICILLIN 2 GM/NS 100 ML 2 GM/100 ML BAG IVPB ×6 (02:43→21:58)
[2023-01-05] MEDS: CENTRAL LINE FLUSH 10 ML IV PUSH ×3 (05:27→22:50)
[2023-01-05 08:12] LABS: Glucose Point of Care 46 mg/dl (65-105)
[2023-01-05] MEDS: PREGABALIN (*CRX) 50 MG CAPSULE 100 MG PO ×2 (08:19→21:58)
[2023-01-05] MEDS: FINASTERIDE 5 MG TABLET PO (08:20)
[2023-01-05] MEDS: METOPROLOL SUCCINATE EXT REL 25 MG TABCR PO ×2 (08:20→21:59)
[2023-01-05] MEDS: LINEZOLID 600 MG TABLET PO ×2 (08:21→21:58)
[2023-01-05] MEDS: PANTOPRAZOLE 40 MG TABLET PO (08:21)
[2023-01-05] MEDS: APIXABAN 5 MG TABLET PO ×2 (08:21→21:59)
[2023-01-05] MEDS: MAGNESIUM OXIDE 400 MG TABLET PO ×2 (08:21→16:25)
[2023-01-05] MEDS: GLUCOSE ORAL GEL 15 GM OF GLUCSE IN 37.5 GM TUBE (08:22)
[2023-01-05] MEDS: FLUTICASONE/SALMETEROL 115-21 MCG INHALER 1 PUFF 2 PUFF INHALATION (08:26)
[2023-01-05] MEDS: NEOMYCIN/POLYMYXIN/BACITRACIN OINTMENT 15 GM TUBE 1 APPLIC TOPICAL (08:27)
[2023-01-05 08:48] LABS: Glucose Point of Care 71 mg/dl (65-105)
[2023-01-05 12:03] LABS: Glucose Point of Care 148 mg/dl (65-105)
--- NOTE | 2023-01-05 16:18 | PM.IMPN ---
Progress Note: A&P Assessment and Plan (1) Sepsis: Code(s): A41.9 - Sepsis, unspecified organism Status: Acute Assessment and Plan: Sepsis likely from skin wound on left tibia and less likely gastroenteritis. His symptoms have resolved. Skin wound is healing. Urine culture negative. Blood cultures 12/24 positive: 2/2 growing MRSA sensitive to vancomycin, clindamycin and doxycycline; 1/2 is growing VRE sensitive to Ampicillin and Linezolid. Received Zosyn, Vanco and Aztreonam on admission. Repeat blood cultures 12/26 Negative. Ampicillin started 12/[address] chest/abd/pelvis 12/29 showing no acute process. TTE showed no signs of vegetation, EF 55-60%, grade I diastolic dysfunction. WBC was higher so linezolid added 12/31 (currently Day 5). On chart review, WBC is chronically elevated mostly in the high teens to low-20's. Patient states he has elevated WBC chronically but it was climbing for unclear reasons. Consider CDiff but seems less likely. With Linezolid, WBC back down now to 17.5K. Discussed with PharmD ID. Plan for 2 weeks from negative BCx on 12/26. Continue current abx with Ampicillin and Linezolid through 01/08. Midline in place. Awaiting placement. (2) Hemiplegia: Code(s): G81.90 - Hemiplegia, unspecified affecting unspecified side Status: Acute Assessment and Plan: Stable, Continue PT/OT (3) Type 2 diabetes mellitus with hyperglycemia, with long-term current use of insulin: Code(s): E11.65 - Type 2 diabetes mellitus with hyperglycemia; Z79.4 - long-term (current) use of insulin Status: Acute Assessment and Plan: A1c 7.2. The patient's blood glucose was reviewed on 01/05 Glucose was low so mealtime insulin held. Glucose improved but low again. Continue AccuCheks covering with sliding scale. Hypoglycemia protocol available as needed. Decrease Lantus and follow (4) Diastolic heart failure: Code(s): I50.30 - Unspecified diastolic (congestive) heart failure Status: Acute Assessment and Plan: Clinically euvolemic at this time (5) Acute kidney injury superimposed on CKD: Code(s): N17.9 - Acute kidney failure, unspecified; N18.9 - Chronic kidney disease, unspecified Status: Acute Assessment and Plan: Renal function normal. Follow intermittently. (6) Wound of lower extremity: Qualifiers: Encounter type: initial encounter Laterality: left Qualified Code(s): S81.802A - Unspecified open wound, left lower leg, initial encounter Code(s): S81.809A - Unspecified open wound, unspecified lower leg, initial encounter Status: Acute Assessment and Plan: As above. Continue current wound care. (7) Depression: Code(s): F32.9 - Major depressive disorder, single episode, unspecified Status: Chronic Assessment and Plan: Stable. Effexor on hold. (8) Neuropathy: Code(s): G62.9 - Polyneuropathy, unspecified Status: Acute Assessment and Plan: Stable, continue home meds (9) COPD (chronic obstructive pulmonary disease): Code(s): J44.9 - Chronic obstructive pulmonary disease, unspecified Status: Acute Assessment and Plan: With chronic respiratory failure, stable on his baseline 2 L of oxygen (10) Hyponatremia: Code(s): E87.1 - Hypo-osmolality and hyponatremia Status: Acute Assessment and Plan: Stable. Sodium 137 yesterday Plan DVT prophylaxis with Eliquis Code status full code Disp: Awaiting placement. Subjective Date/time seen: 01/05/23 16:18 Interval history: 62yo male with left-sided hemiplegia from a prior CVA, DM and CHF is presenting from a nursing facility with nausea and vomiting and found to have sepsis from MRSA + VRE bacteremia. No issues overnight but did have a low glucose this morning at 46. He was asymptomatic. Feels well. No complaints. Walking to the bathroom. No Cp or SOB.
[2023-01-05 17:01] LABS: Glucose Point of Care 206 mg/dl (65-105)
[2023-01-05] MEDS: MONTELUKAST SODIUM 10 MG TABLET PO (21:58)
[2023-01-05] MEDS: GABAPENTIN 300 MG CAPSULE PO (21:59)
[2023-01-05] MEDS: SENNA/DOCUSATE SODIUM TABLET 2 TAB PO (21:59)
[2023-01-05] MEDS: FENOFIBRATE 160 MG TABLET PO (21:59)
[2023-01-05] MEDS: diazePAM (*CRX) 2 MG TABLET PO (22:01)
--- NOTE | 2023-01-05 22:04 | PCRCNOTE ---
Window of time for administration has passed. See next scheduled administration.
[2023-01-06] VITALS (8 sets, daily range): BP systolic 135–143; BP diastolic 74–79; PULSE 76–94; RESP 16–20; TEMP 36.2–36.5; O2SAT 95–99
[2023-01-06] MEDS: AMPICILLIN 2 GM/NS 100 ML 2 GM/100 ML BAG IVPB ×6 (01:33→22:39)
[2023-01-06] MEDS: CENTRAL LINE FLUSH 10 ML IV PUSH ×3 (06:28→22:39)
[2023-01-06 08:27] LABS: Glucose Point of Care 109 mg/dl (65-105)
[2023-01-06] MEDS: MAGNESIUM OXIDE 400 MG TABLET PO ×2 (09:01→17:13)
[2023-01-06] MEDS: LINEZOLID 600 MG TABLET PO ×2 (09:01→22:38)
[2023-01-06] MEDS: PREGABALIN (*CRX) 50 MG CAPSULE 100 MG PO ×2 (09:01→22:38)
[2023-01-06] MEDS: FINASTERIDE 5 MG TABLET PO (09:01)
[2023-01-06] MEDS: APIXABAN 5 MG TABLET PO ×2 (09:02→22:39)
[2023-01-06] MEDS: METOPROLOL SUCCINATE EXT REL 25 MG TABCR PO ×2 (09:02→22:38)
[2023-01-06] MEDS: NEOMYCIN/POLYMYXIN/BACITRACIN OINTMENT 15 GM TUBE 1 APPLIC TOPICAL (09:04)
[2023-01-06] MEDS: PANTOPRAZOLE 40 MG TABLET PO (09:04)
[2023-01-06 12:11] LABS: Glucose Point of Care 168 mg/dl (65-105)
--- NOTE | 2023-01-06 14:54 | PM.DS ---
DS: Admitting Diagnosis Discharge Date 01/08 Admitting Diagnosis nausea with emesis DS: Discharge Diagnosis Discharge Diagnosis (1) Sepsis: Code(s): A41.9 - Sepsis, unspecified organism Status: Acute Assessment and Plan: Sepsis likely from skin wound on left tibia and less likely gastroenteritis. His symptoms have resolved. Skin wound is healing. Urine culture negative. Blood cultures 12/24 positive: 2/2 growing MRSA sensitive to vancomycin, clindamycin and doxycycline; 1/2 is growing VRE sensitive to Ampicillin and Linezolid. Received Zosyn, Vanco and Aztreonam on admission. Repeat blood cultures 12/26 Negative. Ampicillin started 12/[address] chest/abd/pelvis 12/29 showing no acute process. TTE showed no signs of vegetation, EF 55-60%, grade I diastolic dysfunction. WBC was higher so linezolid added 12/31 (currently Day 5). On chart review, WBC is chronically elevated mostly in the high teens to low-20's. Patient states he has elevated WBC chronically but it was climbing for unclear reasons. Consider CDiff but seems less likely. With Linezolid, WBC back down now to 17.5K. Discussed with PharmD ID. Plan for 2 weeks from negative BCx on 12/26. Continue current abx with Ampicillin and Linezolid through 01/08. Midline in place. (2) Hemiplegia: Code(s): G81.90 - Hemiplegia, unspecified affecting unspecified side Status: Acute Assessment and Plan: Stable, Continue PT/OT (3) Type 2 diabetes mellitus with hyperglycemia, with long-term current use of insulin: Code(s): E11.65 - Type 2 diabetes mellitus with hyperglycemia; Z79.4 - termite control technician (current) use of insulin Status: Acute Assessment and Plan: A1c 7.2. The patient's blood glucose was reviewed on 01/07 Glucose was low so mealtime insulin held. Glucose improved but low again. Continue AccuCheks covering with sliding scale. Hypoglycemia protocol available as needed. Decrease Lantus and follow (4) Diastolic heart failure: Code(s): I50.30 - Unspecified diastolic (congestive) heart failure Status: Acute Assessment and Plan: Clinically euvolemic at this time (5) Acute kidney injury superimposed on CKD: Code(s): N17.9 - Acute kidney failure, unspecified; N18.9 - Chronic kidney disease, unspecified Status: Acute Assessment and Plan: Renal function normal. Follow intermittently. (6) Wound of lower extremity: Qualifiers: Encounter type: initial encounter Laterality: left Qualified Code(s): S81.802A - Unspecified open wound, left lower leg, initial encounter Code(s): S81.809A - Unspecified open wound, unspecified lower leg, initial encounter Status: Acute Assessment and Plan: As above. Continue current wound care. (7) Depression: Code(s): F32.9 - Major depressive disorder, single episode, unspecified Status: Chronic Assessment and Plan: Stable. Effexor on hold. (8) Neuropathy: Code(s): G62.9 - Polyneuropathy, unspecified Status: Acute Assessment and Plan: Stable, continue home meds (9) COPD (chronic obstructive pulmonary disease): Code(s): J44.9 - Chronic obstructive pulmonary disease, unspecified Status: Acute Assessment and Plan: With chronic respiratory failure, stable on his baseline 2 L of oxygen (10) Hyponatremia: Code(s): E87.1 - Hypo-osmolality and hyponatremia Status: Acute Assessment and Plan: Stable. Sodium 137 01/04 Plan DVT prophylaxis with Eliquis Code status full code Disp: Awaiting placement. DS: Summary Hospital Course Hospital Course: 62-year-old male from a nursing facility with past medical history significant for CVA, diabetes is presenting with nausea and vomiting for the last 2-3 days. He was ultimately found to have VRE and MRSA bacteremia. He was treated for 14 days with IV antibiotics after repeat blood culture
[2023-01-06 16:27] LABS: Glucose Point of Care 187 mg/dl (65-105)
--- NOTE | 2023-01-06 19:53 | PM.IMPN ---
Progress Note: A&P Assessment and Plan (1) Sepsis: Code(s): A41.9 - Sepsis, unspecified organism Status: Acute Assessment and Plan: Sepsis likely from skin wound on left tibia and less likely gastroenteritis. His symptoms have resolved. Skin wound is healing. Urine culture negative. Blood cultures 12/24 positive: 2/2 growing MRSA sensitive to vancomycin, clindamycin and doxycycline; 1/2 is growing VRE sensitive to Ampicillin and Linezolid. Received Zosyn, Vanco and Aztreonam on admission. Repeat blood cultures 12/26 Negative. Ampicillin started 12/[address] chest/abd/pelvis 12/29 showing no acute process. TTE showed no signs of vegetation, EF 55-60%, grade I diastolic dysfunction. WBC was higher so linezolid added 12/31 (currently Day 5). On chart review, WBC is chronically elevated mostly in the high teens to low-20's. Patient states he has elevated WBC chronically but it was climbing for unclear reasons. Consider CDiff but seems less likely. With Linezolid, WBC back down now to 17.5K. Discussed with PharmD ID. Plan for 2 weeks from negative BCx on 12/26. Continue current abx with Ampicillin and Linezolid through 01/08. Midline in place. Awaiting placement. (2) Hemiplegia: Code(s): G81.90 - Hemiplegia, unspecified affecting unspecified side Status: Acute Assessment and Plan: Stable, Continue PT/OT (3) Type 2 diabetes mellitus with hyperglycemia, with long-term current use of insulin: Code(s): E11.65 - Type 2 diabetes mellitus with hyperglycemia; Z79.4 - nursing home (current) use of insulin Status: Acute Assessment and Plan: A1c 7.2. The patient's blood glucose was reviewed on 01/06 Glucose was low so mealtime insulin held. Glucose improved but low again. Continue AccuCheks covering with sliding scale. Hypoglycemia protocol available as needed. Decrease Lantus and follow (4) Diastolic heart failure: Code(s): I50.30 - Unspecified diastolic (congestive) heart failure Status: Acute Assessment and Plan: Clinically euvolemic at this time (5) Acute kidney injury superimposed on CKD: Code(s): N17.9 - Acute kidney failure, unspecified; N18.9 - Chronic kidney disease, unspecified Status: Acute Assessment and Plan: Renal function normal. Follow intermittently. (6) Wound of lower extremity: Qualifiers: Encounter type: initial encounter Laterality: left Qualified Code(s): S81.802A - Unspecified open wound, left lower leg, initial encounter Code(s): S81.809A - Unspecified open wound, unspecified lower leg, initial encounter Status: Acute Assessment and Plan: As above. Continue current wound care. (7) Depression: Code(s): F32.9 - Major depressive disorder, single episode, unspecified Status: Chronic Assessment and Plan: Stable. Effexor on hold. (8) Neuropathy: Code(s): G62.9 - Polyneuropathy, unspecified Status: Acute Assessment and Plan: Stable, continue home meds (9) COPD (chronic obstructive pulmonary disease): Code(s): J44.9 - Chronic obstructive pulmonary disease, unspecified Status: Acute Assessment and Plan: With chronic respiratory failure, stable on his baseline 2 L of oxygen (10) Hyponatremia: Code(s): E87.1 - Hypo-osmolality and hyponatremia Status: Acute Assessment and Plan: Stable. Sodium 137 01/04 Plan DVT prophylaxis with Eliquis Code status full code Disp: Awaiting placement. Subjective Date/time seen: 01/06/23 19:53 Interval history: 62yo male with left-sided hemiplegia from a prior CVA, DM and CHF is presenting from a nursing facility with nausea and vomiting and found to have sepsis from MRSA + VRE bacteremia. No overnight events noted. No chest pain or shortness of breath. No nausea, vomiting or diarrhea. No fevers or chills. Eager to leave. Review of Syst
[2023-01-06] MEDS: FLUTICASONE/SALMETEROL 115-21 MCG INHALER 1 PUFF 2 PUFF INHALATION (21:15)
[2023-01-06] MEDS: FENOFIBRATE 160 MG TABLET PO (22:38)
[2023-01-06] MEDS: GABAPENTIN 300 MG CAPSULE PO (22:38)
[2023-01-06] MEDS: MONTELUKAST SODIUM 10 MG TABLET PO (22:38)
[2023-01-06] MEDS: SENNA/DOCUSATE SODIUM TABLET 2 TAB PO (22:38)
[2023-01-06] MEDS: ZOLPIDEM TARTRATE (*CRX) 5 MG TABLET 10 MG PO (22:39)
[2023-01-06] MEDS: diazePAM (*CRX) 2 MG TABLET PO (22:39)
[2023-01-07] VITALS (7 sets, daily range): BP systolic 155–157; BP diastolic 70–72; PULSE 78–96; RESP 16–18; TEMP 36.6–36.9; O2SAT 96–99
[2023-01-07] MEDS: AMPICILLIN 2 GM/NS 100 ML 2 GM/100 ML BAG IVPB ×4 (02:02→13:14)
[2023-01-07] MEDS: CENTRAL LINE FLUSH 10 ML IV PUSH ×3 (06:27→21:05)
--- NOTE | 2023-01-07 08:05 | PM.IMPN ---
Progress Note: A&P Assessment and Plan (1) Sepsis: Code(s): A41.9 - Sepsis, unspecified organism Status: Acute Assessment and Plan: Sepsis likely from skin wound on left tibia and less likely gastroenteritis. His symptoms have resolved. Skin wound is healing. Urine culture negative. Blood cultures 12/24 positive: 2/2 growing MRSA sensitive to vancomycin, clindamycin and doxycycline; 1/2 is growing VRE sensitive to Ampicillin and Linezolid. Received Zosyn, Vanco and Aztreonam on admission. Repeat blood cultures 12/26 Negative. Ampicillin started 12/[address] chest/abd/pelvis 12/29 showing no acute process. TTE showed no signs of vegetation, EF 55-60%, grade I diastolic dysfunction. WBC was higher so linezolid added 12/31 (currently Day 5). On chart review, WBC is chronically elevated mostly in the high teens to low-20's. Patient states he has elevated WBC chronically but it was climbing for unclear reasons. Consider CDiff but seems less likely. With Linezolid, WBC back down now to 17.5K. Discussed with PharmD ID. Plan for 2 weeks from negative BCx on 12/26. Continue current abx with Ampicillin and Linezolid through 01/08. Midline in place. Awaiting placement. (2) Hemiplegia: Code(s): G81.90 - Hemiplegia, unspecified affecting unspecified side Status: Acute Assessment and Plan: Stable, Continue PT/OT (3) Type 2 diabetes mellitus with hyperglycemia, with long-term current use of insulin: Code(s): E11.65 - Type 2 diabetes mellitus with hyperglycemia; Z79.4 - care home (current) use of insulin Status: Acute Assessment and Plan: A1c 7.2. The patient's blood glucose was reviewed on 01/07 Glucose was low so mealtime insulin held. Glucose improved but low again. Continue AccuCheks covering with sliding scale. Hypoglycemia protocol available as needed. Decrease Lantus and follow (4) Diastolic heart failure: Code(s): I50.30 - Unspecified diastolic (congestive) heart failure Status: Acute Assessment and Plan: Clinically euvolemic at this time (5) Acute kidney injury superimposed on CKD: Code(s): N17.9 - Acute kidney failure, unspecified; N18.9 - Chronic kidney disease, unspecified Status: Acute Assessment and Plan: Renal function normal. Follow intermittently. (6) Wound of lower extremity: Qualifiers: Encounter type: initial encounter Laterality: left Qualified Code(s): S81.802A - Unspecified open wound, left lower leg, initial encounter Code(s): S81.809A - Unspecified open wound, unspecified lower leg, initial encounter Status: Acute Assessment and Plan: As above. Continue current wound care. (7) Depression: Code(s): F32.9 - Major depressive disorder, single episode, unspecified Status: Chronic Assessment and Plan: Stable. Effexor on hold. (8) Neuropathy: Code(s): G62.9 - Polyneuropathy, unspecified Status: Acute Assessment and Plan: Stable, continue home meds (9) COPD (chronic obstructive pulmonary disease): Code(s): J44.9 - Chronic obstructive pulmonary disease, unspecified Status: Acute Assessment and Plan: With chronic respiratory failure, stable on his baseline 2 L of oxygen (10) Hyponatremia: Code(s): E87.1 - Hypo-osmolality and hyponatremia Status: Acute Assessment and Plan: Stable. Sodium 137 01/04 Plan DVT prophylaxis with Eliquis Code status full code Disp: Awaiting placement. Subjective Date/time seen: 01/07/23 08:05 Interval history: 62yo male with left-sided hemiplegia from a prior CVA, DM and CHF is presenting from a nursing facility with nausea and vomiting and found to have sepsis from MRSA + VRE bacteremia. No overnight events noted. No chest pain or shortness of breath. No nausea, vomiting or diarrhea. No fevers or chills. Eager to leave. Review of Syst
[2023-01-07 08:46] LABS: Glucose Point of Care 163 mg/dl (65-105)
[2023-01-07] MEDS: APIXABAN 5 MG TABLET PO ×2 (08:57→21:00)
[2023-01-07] MEDS: METOPROLOL SUCCINATE EXT REL 25 MG TABCR PO ×2 (08:58→21:00)
[2023-01-07] MEDS: FINASTERIDE 5 MG TABLET PO (08:59)
[2023-01-07] MEDS: MAGNESIUM OXIDE 400 MG TABLET PO ×2 (08:59→16:30)
[2023-01-07] MEDS: PANTOPRAZOLE 40 MG TABLET PO (08:59)
[2023-01-07] MEDS: LINEZOLID 600 MG TABLET PO ×2 (08:59→21:00)
[2023-01-07] MEDS: NEOMYCIN/POLYMYXIN/BACITRACIN OINTMENT 15 GM TUBE 1 APPLIC TOPICAL (09:00)
[2023-01-07] MEDS: PREGABALIN (*CRX) 50 MG CAPSULE 100 MG PO ×2 (09:03→21:05)
[2023-01-07] MEDS: INSULIN GLARGINE (*BKC) 100 UNITS/ML 37 UNITS SUB-Q (09:03)
--- NOTE | 2023-01-07 10:56 | PCNWS ---
Weekly nutritional screen. Patient is tolerating current diet with adequate intake. No weight loss reported. No nutritional needs at this time.
[2023-01-07 12:11] LABS: Glucose Point of Care 180 mg/dl (65-105)
[2023-01-07 17:21] LABS: Glucose Point of Care 202 mg/dl (65-105)
[2023-01-07 20:16] LABS: Glucose Point of Care 242 mg/dl (65-105)
[2023-01-07] MEDS: GABAPENTIN 300 MG CAPSULE PO (20:59)
[2023-01-07] MEDS: MONTELUKAST SODIUM 10 MG TABLET PO (20:59)
[2023-01-07] MEDS: SENNA/DOCUSATE SODIUM TABLET 2 TAB PO (20:59)
[2023-01-07] MEDS: FENOFIBRATE 160 MG TABLET PO (20:59)
[2023-01-07] MEDS: diazePAM (*CRX) 2 MG TABLET PO (21:00)
[2023-01-07] MEDS: ZOLPIDEM TARTRATE (*CRX) 5 MG TABLET 10 MG PO (21:00)
[2023-01-08] MEDS: CENTRAL LINE FLUSH 10 ML IV PUSH (06:04)
[2023-01-08 06:21] LABS: Basophils Absolute Auto 0.1 K/mm3 (0.0-0.1); Eosinophils Absolute Auto 0.7 K/mm3 (0-0.3); Eosinophils Percent Auto 5.3 % (0-4.4); Hemoglobin 12.1 g/dL (14.0-18.0); Immature Granulocyte Absolute 0.03 K/mm3 (0.00-0.031); Immature Granulocyte Percent A 0.2 % (0-0.5); Lymphocytes Absolute Auto 2.62 K/mm3 (0.9-3.2); Lymphocytes Percent Auto 19.7 % (18.3-44.2); Mean Corpuscular HGB Conc 33.6 g/dl (32-36); Mean Corpuscular Hemoglobin 31.3 pg (26-34); Mean Corpuscular Volume 93.3 fl (80-100); Mean Platelet Volume 10.6 fl (7.4-10.4); Monocytes Absolute Auto 1.2 K/mm3 (0.1-0.6); Monocytes Percent Auto 8.6 % (2.6-8.5); Neutrophils Absolute Auto 8.7 K/mm3 (1.3-6.7); Neutrophils Percent Auto 65.2 % (45.5-73.1); Nucleated Red Blood Cells Perc 0.2 % (0.0-0.2); Platelet Count Result 571 k/mm3 (150-375); Red Blood Count 3.86 M/mm3 (4.6-6.20); Red Cell Distribution Width 13.7 % (11.5-14.5); White Blood Count 13.3 K/mm3 (4.5-10.0)
[2023-01-08 06:32] LABS: Alanine Aminotransferase 17 U/L (6-50); Albumin Level 3.8 g/dL (3.5-5.1); Alkaline Phosphatase 53 U/L (38-126); Anion Gap 6 mmol/L (8-16); Aspartate Amino Transferase 27 U/L (17-59); Bilirubin,Total 0.8 mg/dL (0.2-1.3); Blood Urea Nitrogen 22 mg/dL (9-20); Carbon Dioxide 25 mmol/L (22-30); Chloride 105 mmol/L (98-107); Estimated CRCL calculation 75 ml/min; Estimated Glomerular Filt Rate > 60; Glucose 209 mg/dL (65-110); Potassium 4.6 mmol/L (3.4-5.0); Sodium 136 mmol/L (137-145)
[2023-01-08 06:49] VITALS: BP 148/92; PULSE 78; RESP 16; TEMP 36.6; O2SAT 99
[2023-01-08 08:00] VITALS: O2SAT 98
[2023-01-08 08:50] LABS: Glucose Point of Care 164 mg/dl (65-105)
[2023-01-08 09:03] VITALS: PULSE 77
[2023-01-08] MEDS: NEOMYCIN/POLYMYXIN/BACITRACIN OINTMENT 15 GM TUBE 1 APPLIC TOPICAL (09:03)
[2023-01-08] MEDS: APIXABAN 5 MG TABLET PO (09:03)
[2023-01-08] MEDS: INSULIN GLARGINE (*BKC) 100 UNITS/ML 37 UNITS SUB-Q (09:03)
[2023-01-08] MEDS: MAGNESIUM OXIDE 400 MG TABLET PO (09:03)
[2023-01-08] MEDS: FINASTERIDE 5 MG TABLET PO (09:03)
[2023-01-08] MEDS: LINEZOLID 600 MG TABLET PO (09:03)
[2023-01-08] MEDS: PANTOPRAZOLE 40 MG TABLET PO (09:03)
[2023-01-08] MEDS: METOPROLOL SUCCINATE EXT REL 25 MG TABCR PO (09:03)
[2023-01-08] MEDS: PREGABALIN (*CRX) 50 MG CAPSULE 100 MG PO (09:09)
[2023-01-08 10:17] VITALS: O2SAT 98
[2023-01-08] MEDS: NEOMYCIN/POLYMYXIN/BACITRACIN OINTMENT PACKET 1 PACKET (12:16)
== END 2023-01-08 13:29 | disposition home or self-care (01) | DRG 872 ==
LOC: ANHED 12-24 03:01 → ANHIMU 12-24 04:13 → ANH2MED 12-27 13:19
PROVIDERS: Internal Medicine; Admitting Provider Internal Medicine; Emergency Provider Emergency Medicine; PCP Internal Medicine; Visit Provider Student in an Organized Health Care Education/Training Program
DX: A41.02 Sepsis due to Methicillin resistant Staphylococcus aureus (principal); I50.30 Unspecified diastolic (congestive) heart failure; N17.9 Acute kidney failure, unspecified; E87.1 Hypo-osmolality and hyponatremia; I69.354 Hemiplegia and hemiparesis following cerebral infarction affecting left non-dominant side; J96.10 Chronic respiratory failure, unspecified whether with hypoxia or hypercapnia; E11.65 Type 2 diabetes mellitus with hyperglycemia; Z79.4 Long term (current) use of insulin; N18.9 Chronic kidney disease, unspecified; F32.9 Major depressive disorder, single episode, unspecified; S81.802A Unspecified open wound, left lower leg, initial encounter; G62.9 Polyneuropathy, unspecified; J44.9 Chronic obstructive pulmonary disease, unspecified; F41.9 Anxiety disorder, unspecified; F40.240 Claustrophobia; G47.33 Obstructive sleep apnea (adult) (pediatric); Z20.822 Contact with and (suspected) exposure to COVID-19; Z89.431 Acquired absence of right foot; Z88.5 Allergy status to narcotic agent; Z79.899 Other long term (current) drug therapy; Z99.81 Dependence on supplemental oxygen
CPT/HCPCS: 36415; 36569; 71045; 71250; 74176; 76775; 80048; 80053; 80202; 81001; 82274; 82948; 83036; 83605; 83690; 83735; 83880; 84100; 84145; 84484; 85025; 85610; 85730; 86140; 87040; 87045; 87077; 87086; 87088; 87186; 87427; 87637; 89055; 93005; 93306; 94640; 96361; 96374; 97110; 97116; 97161; 97165; 97530; 99285; A9270; C1751; C8929; J0290; J1815; J2543; J3370; J7030; Q9957

== ENCOUNTER 2023-01-11 02:07 | Observation (INO) | payer MEDICARE, SELFPAY ==
[2023-01-11] VITALS (11 sets, daily range): BP systolic 110–142; BP diastolic 63–92; PULSE 76–114; RESP 15–20; TEMP 36.2–37.7; O2SAT 95–100; BMI 35.4
--- NOTE | ~2023-01-11 | CT_ITS ---
Clinical Indication: Trauma CT Scan of the Chest, Abdomen, and Pelvis without Contrast: Technique: Contiguous sections were acquired throughout the chest, abdomen, and pelvis without IV or oral contrast demonstration. Dose reduction technique was used on this scan by utilizing automated ex posure control and iterative reconstruction technique. The dose-length product (DLP) was 2344.97 mGy- cm. COMPARISON: 12/29/2022 Findings: Several calcified mediastinal lymph nodes are noted. There are atherosclerotic calcifications of the aorta. Possible very small left hemothorax versus atelectatic change. No right pleural effusion. No pericard ial effusion. Calcified right upper lobe granuloma noted. There is mild bibasilar atelectatic change. Acute fractur es of the left sixth, seventh, eighth, ninth, and 10th ribs are noted. The liver, spleen, pancreas, right adrenal gland, and right kidney are within normal limits. Cholecys tectomy clips are present. 4 mm nonobstructing left renal stone present. 5 cm left adrenal myelolipom a again noted, with new mildly hyperdense nodular areas within it, which could reflect areas of inter nal hemorrhage (axial image 105 for example).. No evidence of aortic aneurysm. No lymphadenopathy. No bowel obstruction or bowel wall thickening. There is no evidence to suggest acute appendicitis. Urinary bladder is unremarkable. Prostate gland and seminal vesicles are unremarkable. Impression: Acute fractures of the left sixth, seventh, eighth, ninth, and 10th ribs. Questionable very small left hemothorax versus atelectatic change. 5 cm left adrenal myelolipoma, with probable new areas of internal hemorrhage as compared to recent p rior exam, largest measuring up to 2.3 cm in diameter. Evidence of prior granulomatous disease. Reviewed, dictated and finalized at location . Impression: Acute fractures of the left sixth, seventh, eighth, ninth, and 10th ribs. Questionable very small left hemothorax versus atelectatic change. 5 cm left adrenal myelolipoma, with probable new areas of internal hemorrhage a s compared to recent prior exam, largest measuring up to 2.3 cm in diameter. Evidence of prior granulomatous disease.
--- NOTE | ~2023-01-11 | XR_ITS ---
Clinical Indication: Hemothorax, rib fractures AP and lateral views of the chest: Comparison: 01/11/2023 Findings: Small left pleural effusion is present. Right lung clear. No pneumothorax evident. Cardiom ediastinal silhouette is within normal limits. Multiple known left-sided rib fractures are somewhat p oorly delineated radiographically. Impression: Small left pleural effusion. Multiple known left-sided rib fractures are somewhat poorly delineated radiographically. Please refer to CT scan from 01/11/2023 for further details. Reviewed, dictated and finalized at location M. Impression: Small left pleural effusion. Multiple known left-sided rib fractures are somewhat poorly delineated radiogra phically. Please refer to CT scan from 01/11/2023 for further details.
--- NOTE | ~2023-01-11 | XR_ITS ---
EXAMINATION: XR chest 1V portable DATE: 01/13/2023 10:56 INDICATION: Hemothorax. TECHNIQUE: A single frontal view of the chest was obtained. COMPARISON: Chest 2 views 01/12/2023, chest CT 01/11/2023 FINDINGS: There is prominent extrapleural fat bilaterally. There is a small left pleural effusion. Th ere is mild atelectasis at left lung base. No pneumothorax. The heart size is normal. Again seen are acute and chronic left rib fractures. IMPRESSION: 1. Stable small left pleural effusion. Reviewed, dictated and finalized at location A.
--- NOTE | ~2023-01-11 | XR_ITS ---
Portable chest x-ray Comparison: 12/23/2022 Clinical History: Chest pain Findings: Lungs are clear, without focal consolidation or pleural effusion. Cardiomediastinal silho uette is stable. Chronic left rib fracture deformities of the left fourth and fifth ribs noted. Fract ure deformity posterior left sixth rib noted, age-indeterminate.. Impression: Age-indeterminate left posterior sixth rib fracture. Acute fracture not completely excluded. Correlat e for point tenderness. Chronic left fourth and fifth rib fracture deformities. Clear lungs. Reviewed, dictated and finalized at [facility]. Impression: Age-indeterminate left posterior sixth rib fracture. Acute fracture not complet belkis excluded. Correlate for point tenderness. Chronic left fourth and fifth rib fracture deformities. Clear lungs.
--- NOTE | ~2023-01-11 | CT_ITS ---
CT head without contrast Indication: Status post fall COMPARISON: 11/19/2022 Technique: Serial scans were obtained through the brain without the administration of contrast. Dose reduction technique was used on this scan by utilizing automated exposure control and iterative recon struction technique. The dose-length product (DLP) was 681.00 mGy-cm. Findings: There is no evidence of intracranial hemorrhage, mass lesion, or acute infarct. Stable exte nsive chronic right MCA distribution infarct. Stable chronic left basal ganglia lacunar infarct. The ventricles and subarachnoid spaces are dilated, consistent with mild atrophy. Low attenuation region s are seen within the periventricular white matter bilaterally, likely representing changes from vault teller sandra microvascular ischemic disease. There is no evidence of edema, mass effect or midline shift. Th e visualized paranasal sinuses and mastoid air cells are clear. Impression: No intracranial hemorrhage, mass, or acute infarct. Stable extensive, chronic right MCA distribution infarct. Stable chronic left basal ganglia lacunar i nfarct. Atrophy and chronic white matter changes, as above. Reviewed, dictated and finalized at location . Impression: No intracranial hemorrhage, mass, or acute infarct. Stable extensive, chronic right MCA distribution infarct. Stable chronic left b leon ganglia lacunar infarct. Atrophy and chronic white matter changes, as above.
--- NOTE | ~2023-01-11 | CT_ITS ---
Noncontrast CT scan of the cervical spine Technique: Multiple contiguous axial [address] images of the cervical spine were obtained and rec onstructed in 2D sagittal and coronal planes on the acquisition scanner. Dose reduction technique was used on this scan by utilizing automated exposure control, adjustment of the mA and/or kV according to patient size. Clinical History: Pain Findings: No fractures or dislocations. Intervertebral disc spaces are well-preserved. There is fusi on of the right C3-C4 and C4-C5 facet joints. There is facet joint arthropathy at C3-C4 the right cristian e with right neural foraminal narrowing. No prevertebral soft tissue swelling. Impression: No fracture or subluxation of the cervical spine. Degenerative change, as above. Reviewed, dictated and finalized at location . Impression: No fracture or subluxation of the cervical spine. Degenerative change, as above.
[2023-01-11 02:31] LABS: Glucose Point of Care 163 mg/dl (65-105)
--- NOTE | 2023-01-11 03:01 | ECG_ITS ---
Measurements Intervals [place] Rate: 105 P: 26 DE: 149 QRS: 1 QRSD: 96 T: 37 QT: 345 QTc: 457 Interpretive Statements SINUS TACHYCARDIA CONSIDER INFERIOR INFARCT, AGE INDETERMINATE BORDERLINE ST-T WAVE ABNORMALITY- LAT/HIGH LAT LEADS BASELINE ARTIFACT- V3 ABNORMAL ECG COMPARED TO ECG 12/23/2022 21:52:45 VENTRICULAR TRIGEMINY NO LONGER PRESENT Electronically Signed On 01-11-2023 6:52:13 CDT by Phillip Rodriguez D.O.
--- NOTE | 2023-01-11 03:28 | ED.GENADULT ---
HPI - General Adult General Chief complaint: Fall Stated complaint: FALL; PAIN TO RIBS Time Seen by Provider: 01/11/23 02:55 History of Present Illness HPI narrative: Patient 62-year-old gentleman who presents the emergency department with chief complaint of falls. Patient was recently in the hospital for sepsis and was discharged to rehab facility the patient then discharged himself from the facility and is back to living independently the patient has had multiple falls over the last several days and is on a DOAC. The patient reports that he feels weak and rundown. The patient also reports that he has pain in the left side of his ribs the patient reports that he is unsure if he had loss of consciousness with the falls Related Data Home Medications Medication Instructions Recorded Confirmed budesonide-formoterol HFA 160 2 puff inhalation Q12H 11/08/20 12/24/22 mcg-4.5 mcg/actuation aerosol inhaler (Symbicort) cholecalciferol (vitamin D3) 1,250 1,250 mcg PO WEEKLY 11/08/20 12/24/22 mcg (50,000 unit) capsule finasteride 5 mg tablet 5 mg PO DAILY 11/08/20 12/24/22 montelukast 10 mg tablet 10 mg PO HS 11/08/20 12/24/22 cyclobenzaprine 10 mg tablet 10 mg PO Q8H PRN Muscle Spasm 04/11/21 12/24/22 venlafaxine 37.5 mg tablet 37.5 mg PO Q12H 04/11/21 12/24/22 pregabalin 100 mg capsule (Lyrica) 100 mg PO Q12H 07/17/22 12/24/22 fenofibrate micronized 200 mg 200 mg PO HS 08/26/22 12/24/22 capsule magnesium hydroxide 400 mg/5 mL 30 ml PO HS PRN Constipation 08/26/22 12/24/22 oral suspension (Milk of Magnesia) magnesium oxide 400 mg (241.3 mg 400 mg PO BID 08/26/22 12/24/22 magnesium) tablet ascorbic acid (vitamin C) 500 mg 500 mg PO DAILY 12/24/22 12/24/22 tablet atorvastatin 10 mg tablet 10 mg PO DAILY 12/24/22 12/24/22 zolpidem 10 mg tablet 10 mg PO HS PRN Insomnia 12/24/22 12/24/22 Allergies Allergy/AdvReac Type Severity Reaction Status Date / Time naproxen Allergy Intermediate SWELLING Verified 01/11/23 04:07 cefepime Allergy Unknown Blister Verified 01/11/23 04:07 iohexol Allergy Unknown Unknown Verified 01/11/23 04:07 [From contrast - CT, X-RAY] morphine Allergy Unknown Vomiting Verified 01/11/23 04:07 Review of Systems Review of Systems: A 10 system review of systems was completed on the patient and is negative except for what is stated in the HPI. Nursing and ancillary documentation was reviewed. [facility] Past Medical History Medical History Anemia Anxiety Benign prostatic hyperplasia Cerebrovascular accident (2014) Chronic kidney disease Claustrophobia Depression Diastolic heart failure Echo 08/2022: Mild concentric hypertrophy, systolic function 74%, grade 2 diastolic dysfunction, mild left atrial enlargement, right ventricle not well visualized but grossly normal Enterobacter sepsis Secondary to UTI. 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 Smoking packs per day: 0.5 Smoking c
[2023-01-11 04:30] LABS: Basophils Absolute Auto 0.1 K/mm3 (0.0-0.1); Basophils Percent Auto 0.6 % (0.2-1.2); Eosinophils Absolute Auto 0.2 K/mm3 (0-0.3); Eosinophils Percent Auto 0.7 % (0-4.4); Hematocrit 36.9 % (42.0-52.0); Hemoglobin 12.2 g/dL (14.0-18.0); Immature Granulocyte Absolute 0.12 K/mm3 (0.00-0.031); Immature Granulocyte Percent A 0.5 % (0-0.5); Lymphocytes Absolute Auto 1.71 K/mm3 (0.9-3.2); Lymphocytes Percent Auto 7.5 % (18.3-44.2); Mean Corpuscular HGB Conc 33.1 g/dl (32-36); Mean Corpuscular Volume 93.9 fl (80-100); Monocytes Absolute Auto 1.9 K/mm3 (0.1-0.6); Monocytes Percent Auto 8.5 % (2.6-8.5); Neutrophils Absolute Auto 18.8 K/mm3 (1.3-6.7); Neutrophils Percent Auto 82.2 % (45.5-73.1); Nucleated Red Blood Cells Absolute Auto 0.1 K/mm3 (0.0-0.012); Nucleated Red Blood Cells Perc 0.3 % (0.0-0.2); Platelet Count Result 410 k/mm3 (150-375); Red Blood Count 3.93 M/mm3 (4.6-6.20); Red Cell Distribution Width 13.7 % (11.5-14.5); White Blood Count 22.8 K/mm3 (4.5-10.0)
[2023-01-11 04:43] LABS: Lactic Acid Reflex 1.9 mmol/L (0.7-2.0)
[2023-01-11 04:44] LABS: INR 1.6; Prothrombin Time 18.7 Seconds (11.1-14.7)
[2023-01-11 04:45] LABS: Partial Thromboplastin Time 49.8 SECONDS (22.3-36.8)
[2023-01-11 04:53] LABS: Alanine Aminotransferase 20 U/L (6-50); Alkaline Phosphatase 49 U/L (38-126); Anion Gap 6 mmol/L (8-16); Aspartate Amino Transferase 27 U/L (17-59); Bilirubin,Total 0.7 mg/dL (0.2-1.3); Blood Urea Nitrogen 41 mg/dL (9-20); Calcium 9.7 mg/dL (8.4-10.2); Carbon Dioxide 26 mmol/L (22-30); Chloride 107 mmol/L (98-107); Estimated CRCL calculation 46 ml/min; Estimated Glomerular Filt Rate 41; Glucose 160 mg/dL (65-110); Lipase 36 U/L (23-300); Magnesium 1.6 mg/dL (1.6-2.3); Potassium 4.1 mmol/L (3.4-5.0); Sodium 139 mmol/L (137-145)
[2023-01-11 04:55] LABS: NT Pro B Type Natriuretic Pept 348 pg/mL (19.9-100); Troponin I 0.013 ng/mL (0.000-0.034)
--- NOTE | 2023-01-11 06:28 | PC.NURSE ---
Report called to 3rd floor RN. RN states patient may be better fit for a different room. Advised that the RN will call back once consulted with the level vial inside grinder for new room.
--- NOTE | 2023-01-11 07:02 | ADMGEN ---
This patient, Jeremías Gaines, was admitted to [facility] Surg Room 323-01. Patient/family oriented to hospital policies and general routines including ID bracelet, bed and alarms, visiting hours, pain management, procedures, bathroom and other care routines, personal items, smoking policy, room service/diet, and visiting hours. Information on how to activate the Rapid Response Team has been discussed. Patient/Family are encouraged to report perceived risks to care and to ask questions if they do not understand what they are told or what they should do.
[2023-01-11 08:31] LABS: Glucose Point of Care 192 mg/dl (65-105)
--- NOTE | 2023-01-11 09:03 | PM.IMHP ---
H&P: HPI History of Present Illness Date/Time: 01/11/23 09:03 Chief Complaint: Fall with rib fractures Narrative: 62-year-old male with left-sided hemiplegia from prior CVA, diabetes and CHF is presenting with a fall. Of note, he was recently discharged after treatment for sepsis with MRSA and VRE bacteremia. He was noted to have rib fractures in the ER. He was admitted for pain control and possible placement. No chest pain or shortness of breath. No nausea, vomiting or diarrhea. No fevers or chills. Review of Systems Review of Systems: 12 point review of systems was assessed and was negative except as noted in the HPI [facility] Past Medical History Medical History Anemia Anxiety Benign prostatic hyperplasia Cerebrovascular accident (2014) Chronic diastolic heart failure Chronic kidney disease Claustrophobia Depression Diastolic heart failure Echo 08/2022: Mild concentric hypertrophy, systolic function 74%, grade 2 diastolic dysfunction, mild left atrial enlargement, right ventricle not well visualized but grossly normal Enterobacter sepsis Secondary to UTI. 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 Smoking packs per day: 0.75 Smoking cigarettes per day: 15.0 Years smoked: 40 Smoking pack-years: 30.00 Smoking status: Former smoker Tobacco type: cigars Smoking end date: 10/18/94 Alcohol intake: never Alcohol use details: 1/month Substance use: former Substance use type: does not use Lack of Transportation: No Lack of Food: Never True Current Housing: I Have Housing Concerned About Future Housing: YES Difficulty Paying Gas/Electric Bills: No Difficulty Paying for Meds: No Currently Unemployed: No Education: Bachelor's Degree Difficulty w/ Childcare or Family Care: No Living arrangements: with family Additional living arrangements comments: The patient lives with his girlfriend. Occupation/Education: other Additional occupation/education comments: On disability. Spiritual care concerns: No Agree to blood products: Yes Meds Home Medications and Allergies Home Medications Medication Instructions Recorded Confirmed Type budesonide-formoterol HFA 160 2 puff inhalation Q12H 11/08/20 01/11/23 History mcg-4.5 mcg/actuation aerosol inhaler (Symbicort) cholecalciferol (vitamin D3) 1,250 1,250 mcg PO WEEKLY 11/08/20 01/11/23 History mcg (50,000 unit) capsule montelukast 10 mg tablet 10 mg PO HS 11/08/20 01/11/23 History cyclobenzaprine 10 mg tablet 10 mg PO Q8H PRN Muscle Spasm 04/11/21 01/11/23 History venlafaxine 37.5 mg tablet 37.5 mg PO Q12H 04/11/21 01/11/23 History pregabalin 100 mg capsule (Lyrica) 100 mg PO Q12H 07/17/22 01/11/23 History acetaminophen 325 mg tablet (Mapap 650 mg PO Q4H PRN Mild Pain (1-3) 08/23/22 01/11/23 Rx (acetaminophen)) Or Fever #14 tabs metoprolol succinate 25 mg 25 mg PO Q12HR #14 tabs 08/23/22 01/11/23 Rx tablet,extended release 24
[2023-01-11 09:48] LABS: Hemoglobin A1C 7.2 % (<5.7)
[2023-01-11 12:11] LABS: Glucose Point of Care 244 mg/dl (65-105)
[2023-01-11] MEDS: INSULIN ASPART (*BKC) 100 UNITS/ML SUB-Q ×2 (12:21→17:20)
--- NOTE | 2023-01-11 14:02 | PM.CNGS ---
Assessment and Plan Assessment and plan (1) Multiple fractures of ribs: Code(s): S22.49XA - Multiple fractures of ribs, unspecified side, initial encounter for closed fracture Status: Acute Assessment and Plan: Acute fractures of the left 6th-10th ribs with a possible small left hemothorax noted on CT. Patient is hemodynamically stable at this time. Continue analgesics as needed, supplemental oxygen, and incentive spirometry. No indication for surgical intervention at this time. Eliquis is on hold. Will repeat a chest x-ray tomorrow to re-evaluate. Discussed with nursing to get a stat chest x-ray and notify our service if he develops respiratory distress in the interval time. (2) Frequent falls: Code(s): R29.6 - Repeated falls Status: Acute Assessment and Plan: Resulting in multiple left rib fractures and possible left hemothorax. See plan above. (3) Myelolipoma of left adrenal gland: Code(s): D17.79 - Benign lipomatous neoplasm of other sites Status: Acute Assessment and Plan: CT suggests possible internal hemorrhage of the left adrenal myelolipoma. Hgb stable. Patient hemodynamically stable. Continue to monitor H/H and serial abdominal exams. (4) Anticoagulated by anticoagulation treatment: Code(s): Z79.01 - retirement (current) use of anticoagulants Status: Acute Assessment and Plan: Hold Eliquis for now (5) Chronic diastolic heart failure: Code(s): I50.32 - Chronic diastolic (congestive) heart failure Status: Acute (6) Acute kidney injury: Code(s): N17.9 - Acute kidney failure, unspecified Status: Acute (7) Hemiplegia: Code(s): G81.90 - Hemiplegia, unspecified affecting unspecified side Status: Acute (8) Type 2 diabetes mellitus with hyperglycemia, with long-term current use of insulin: Code(s): E11.65 - Type 2 diabetes mellitus with hyperglycemia; 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 Kwok. History of Present Illness Consult details Consult date: 01/11/23 Reason for consult: other (Possible small left hemothorax, possible hemorrhage of left adrenal myelolipoma) Requesting physician: Enrrique Dennison MD Narrative: This is a 62-year-old man with multiple medical problems and is on Eliquis, who presented to the ER overnight due to falls. He was recently hospitalized for sepsis and was discharged on 01/06/23 with the plan for IV antibiotics that needed to be continued through 01/08/2023 at a snf facility, but patient apparently refused SNF on discharge and went home without home health care. He then discharged himself from that facility to go back home where his girlfriend lives with him. He apparently had multiple falls and subsequently came into the ER for evaluation. He apparently had multiple falls over the past few days and complains of generalized weakness and fatigue. He additionally complained of pain at his left ribs. CT head and cervical spine were negative for any acute findings. Chest x-ray showed age indeterminate left posterior 6th rib fracture, chronic left fourth and fifth rib fracture deformities, and clear lungs. CT of the chest abdomen and pelvis showed acute fractures of the left sixth, seventh, eighth, ninth, and tenth ribs, with a questionable very small left hemothorax versus atelectatic change. Also noted was a 5 cm left adrenal myelolipoma with probable new areas of internal hemorrhage as compared to recent CT. [place] a [place] [address], hemoglobin of 12.2 which is stable from his labs last week. Creatinine was up to 1.7. He was placed on 4 L of oxygen in the ER. He had mild tachycardia with a heart rate of 109, which has improved since admission. He was slightly hypertensive, with a stable blood pressure this morning. The patient was admitted to the hospitalist [facility]
[2023-01-11 16:51] LABS: Glucose Point of Care 224 mg/dl (65-105)
[2023-01-11] MEDS: HYDROcodone/acetaminophen (*CRX) 10-325 MG TABLET 1 TAB PO (17:21)
[2023-01-11] MEDS: MAGNESIUM OXIDE 400 MG TABLET PO (17:27)
[2023-01-11] MEDS: FUROSEMIDE 40 MG TABLET PO (17:27)
[2023-01-11] MEDS: FLUTICASONE/SALMETEROL 115-21 MCG INHALER 1 PUFF 2 PUFF INHALATION (19:26)
[2023-01-11] MEDS: MONTELUKAST SODIUM 10 MG TABLET PO (20:12)
[2023-01-11] MEDS: PREGABALIN (*CRX) 50 MG CAPSULE 100 MG PO (20:12)
[2023-01-11] MEDS: VENLAFAXINE HCL 37.5 MG TABLET PO (20:12)
[2023-01-11] MEDS: APIXABAN 5 MG TABLET PO (20:12)
[2023-01-11] MEDS: FENOFIBRATE NANOCRYSTALLIZED 145 MG TABLET PO (20:12)
[2023-01-11] MEDS: METOPROLOL SUCCINATE EXT REL 25 MG TABCR PO (20:13)
[2023-01-11] MEDS: ZOLPIDEM TARTRATE (*CRX) 5 MG TABLET 10 MG PO (21:40)
[2023-01-11 22:47] LABS: Glucose Point of Care 270 mg/dl (65-105)
[2023-01-12] VITALS (7 sets, daily range): BP systolic 149–160; BP diastolic 67–93; PULSE 62–104; RESP 16–18; TEMP 35.8–36.1; O2SAT 96–99
[2023-01-12 01:15] LABS: Glucose Point of Care 224 mg/dl (65-105)
[2023-01-12 06:42] LABS: Basophils Absolute Auto 0.2 K/mm3 (0.0-0.1); Eosinophils Absolute Auto 0.6 K/mm3 (0-0.3); Eosinophils Percent Auto 3.8 % (0-4.4); Hematocrit 34.1 % (42.0-52.0); Hemoglobin 11.5 g/dL (14.0-18.0); Immature Granulocyte Absolute 0.07 K/mm3 (0.00-0.031); Immature Granulocyte Percent A 0.4 % (0-0.5); Lymphocytes Absolute Auto 3.03 K/mm3 (0.9-3.2); Lymphocytes Percent Auto 18.4 % (18.3-44.2); Mean Corpuscular HGB Conc 33.7 g/dl (32-36); Mean Corpuscular Hemoglobin 31.7 pg (26-34); Mean Corpuscular Volume 93.9 fl (80-100); Mean Platelet Volume 11.1 fl (7.4-10.4); Monocytes Absolute Auto 2.3 K/mm3 (0.1-0.6); Monocytes Percent Auto 13.9 % (2.6-8.5); Neutrophils Absolute Auto 10.3 K/mm3 (1.3-6.7); Neutrophils Percent Auto 62.5 % (45.5-73.1); Nucleated Red Blood Cells Perc 0.2 % (0.0-0.2); Platelet Count Result 351 k/mm3 (150-375); Red Blood Count 3.63 M/mm3 (4.6-6.20); Red Cell Distribution Width 13.4 % (11.5-14.5); White Blood Count 16.5 K/mm3 (4.5-10.0)
[2023-01-12 06:57] LABS: Alanine Aminotransferase 18 U/L (6-50); Albumin Level 3.8 g/dL (3.5-5.1); Alkaline Phosphatase 70 U/L (38-126); Anion Gap 6 mmol/L (8-16); Aspartate Amino Transferase 22 U/L (17-59); Bilirubin,Total 0.7 mg/dL (0.2-1.3); Blood Urea Nitrogen 33 mg/dL (9-20); Calcium 9.3 mg/dL (8.4-10.2); Carbon Dioxide 28 mmol/L (22-30); Chloride 101 mmol/L (98-107); Estimated CRCL calculation 67 ml/min; Estimated Glomerular Filt Rate > 60; Glucose 226 mg/dL (65-110); Potassium 3.8 mmol/L (3.4-5.0); Sodium 135 mmol/L (137-145)
[2023-01-12] MEDS: VENLAFAXINE HCL 37.5 MG TABLET PO ×2 (08:24→20:56)
[2023-01-12] MEDS: MAGNESIUM OXIDE 400 MG TABLET PO ×2 (08:24→17:48)
[2023-01-12] MEDS: METOPROLOL SUCCINATE EXT REL 25 MG TABCR PO ×2 (08:24→20:56)
[2023-01-12] MEDS: APIXABAN 5 MG TABLET PO ×2 (08:24→20:56)
[2023-01-12] MEDS: FUROSEMIDE 40 MG TABLET PO ×2 (08:25→17:48)
[2023-01-12] MEDS: SENNA/DOCUSATE SODIUM TABLET 2 TAB PO (08:26)
[2023-01-12] MEDS: INSULIN ASPART (*BKC) 100 UNITS/ML SUB-Q ×3 (08:29→17:49)
[2023-01-12] MEDS: INSULIN GLARGINE (*BKC) 100 UNITS/ML 37 UNITS SUB-Q (08:29)
[2023-01-12] MEDS: PREGABALIN (*CRX) 50 MG CAPSULE 100 MG PO ×2 (08:32→21:00)
[2023-01-12] MEDS: metFORMIN HCL 500 MG TABLET 1000 MG PO ×2 (08:32→17:48)
[2023-01-12 08:42] LABS: Glucose Point of Care 222 mg/dl (65-105)
[2023-01-12] MEDS: FLUTICASONE/SALMETEROL 115-21 MCG INHALER 1 PUFF 2 PUFF INHALATION (09:38)
--- NOTE | 2023-01-12 10:58 | PM.PNGS ---
Progress Note: A&P Assessment and Plan (1) Hemothorax on left: Code(s): J94.2 - Hemothorax Status: Acute Assessment and Plan: stable, no s/s worsening on imaging, exam, encourage OOB/IS, ok to restart anticoagulation, repeat CXR in am (2) Left rib fracture: Code(s): S22.32XA - Fracture of one rib, left side, initial encounter for closed fracture Status: Acute Assessment and Plan: supportive mgmt c pain control (3) Myelolipoma of left adrenal gland: Code(s): D17.79 - Benign lipomatous neoplasm of other sites Status: Acute Assessment and Plan: no s/s further bleeding, ok to restart anticoagulation Subjective Subjective Date/Time Seen: 01/12/23 10:58 no acute issues, just pain all over melina c movt, no increasing SOB Review of Systems Review of Systems: All systems reviewed & are unremarkable except as noted in HPI and below Exam Const: General: cooperative, ill appearing and uncomfortable Chest: Chest palpation & inspection: normal inspection of the chest and tenderness Resp: Effort & Inspection: normal respiratory effort Auscultation: diminished lung sounds Cardio: Rate: regular rate Rhythm: regular rhythm GI: Inspection: normal to inspection and non-distended GI Palp: Yes abdominal tenderness, Yes Soft to palpation, Yes Tenderness to palpation present (GI), No Guarding due to palpation present (GI) and No Rigid due to palpation Objective Data Vital Signs Vital Signs: Vital Signs - 24 hr 01/11/23 14:00 01/11/23 14:45 01/11/23 19:27 Temperature 36.3 C L Pulse Rate 100 85 Respiratory Rate 16 15 Blood Pressure 135/66 Pulse Oximetry 100 Oxygen Delivery Nasal Cannula Oxygen Flow Rate 4 01/11/23 20:13 01/11/23 20:00 01/11/23 22:00 Temperature 36.2 C L Pulse Rate 76 114 H Respiratory Rate 20 Blood Pressure 139/63 Pulse Oximetry 100 99 Oxygen Delivery Nasal Cannula Oxygen Flow Rate 4 01/12/23 01:51 01/12/23 08:24 01/12/23 09:38 Temperature Pulse Rate 81 62 Respiratory Rate 16 Blood Pressure Pulse Oximetry 97 98 Oxygen Delivery Nasal Cannula Nasal Cannula Oxygen Flow Rate 4 4 Intake/Output Intake/Output: Intake & Output 01/09/23 01/10/23 01/11/2301/12/23 23:59 23:59 23:59 23:59 Intake Total 1200 440 Output Total 350 700 Balance 850 -260 Meds/Results Medications: Active Medications Generic Name Dose Route Start Last Admin Trade Name Isiah PRN Reason Stop Dose Admin Acetaminophen 650 mg 01/11/23 05:52 Acetaminophen 325 Mg Tablet PO Q4H PRN Mild Pain (1-3) or Fever Hydrocodone Bitart/Acetaminophen 1 tab 01/11/23 16:07 01/11/23 17:21 Hydrocodone/Acetaminophen (*Crx) 10-325 Mg Tablet PO 1 tab Q6H PRN Administration Pain Rated 7-10 Apixaban 5 mg 01/11/23 21:00 01/12/23 08:24 Apixaban 5 Mg Tablet PO 5 mg Q12HR CINDI Administration Cyclobenzaprine HCl 10 mg 01/11/23 16:06 Cyclobenzaprine Hcl 10 Mg Tablet PO Q8H PRN Muscle Spasm Dextrose 12.5 gm 01/11/23 09:08 Dextrose 50% 25 Gm/50 Ml Syringe IV PUSH PRN PRN Hypoglycemia Protocol Diazepam 2 mg 01/11/23 16:06 Diazepam (*Crx) 2 Mg Tablet PO Q12H PRN Anxiety Ergocalciferol 50,000 units 01/17/23 09:00 Ergocalciferol 50,000 Units Capsule PO Del Toro@0900 CINDI Fenofibrate 145 mg 01/11/23 21:00 01/11/23 20:12 Fenofibrate Nanocrystallized 145 Mg Tablet PO 145 mg HS CINDI Administration Furosemide 40 mg 01/11/23 17:00 01/12/23 08:25 Furosemide 40 Mg Tablet PO 40 mg BID CINDI Administration Glucagon 1 mg 01/11/23 09:08 Glucagon For Inj 1 Mg Vial IM PRN PRN Hypoglycemia Protocol Glucose 15 gm 01/11/23 09:08 Glucose Oral Gel 15 Gm Of Glucse In 37.5 Gm Tube PO PRN PRN Hypoglycemia Protocol Dextrose 1,000 mls @ 100 mls/hr 01/11/23 09:08 Dextrose 5% 1,000 Ml IVPB P
[2023-01-12 11:47] LABS: Glucose Point of Care 292 mg/dl (65-105)
--- NOTE | 2023-01-12 12:19 | PM.IMPN ---
Progress Note: A&P Assessment and Plan (1) Frequent falls: Code(s): R29.6 - Repeated falls Status: Acute Assessment and Plan: Was discharged from our facility recently to inpatient rehab, left rehab AMA PT/OT eval Likely still needs rehab Etiology is multifactorial, likely worsened with extended hospitalization recently (2) Multiple fractures of ribs: Code(s): S22.49XA - Multiple fractures of ribs, unspecified side, initial encounter for closed fracture Status: Acute Assessment and Plan: Pain control, incentive spirometer, up to chair Surgery following as well. Per surgery note, okay to resume anticoagulation. (3) Hemiplegia: Code(s): G81.90 - Hemiplegia, unspecified affecting unspecified side Status: Acute Assessment and Plan: At baseline (4) Type 2 diabetes mellitus with hyperglycemia, with long-term current use of insulin: Code(s): E11.65 - Type 2 diabetes mellitus with hyperglycemia; Z79.4 - terminal gauger (current) use of insulin Status: Acute Assessment and Plan: Blood glucose reviewed 01/11 Accu-Cheks, sliding scale insulin ordered A1c was 7.2 earlier this month 12/25/22 Continue Lantus 37 units daily (5) Chronic diastolic heart failure: Code(s): I50.32 - Chronic diastolic (congestive) heart failure Status: Acute Assessment and Plan: Euvolemic, continue home meds, monitor fluid status Lasix being held secondary to ERIC since 01/10 (6) Depression: Code(s): F32.9 - Major depressive disorder, single episode, unspecified Status: Chronic Assessment and Plan: Stable, continue home meds (7) Neuropathy: Code(s): G62.9 - Polyneuropathy, unspecified Status: Acute Assessment and Plan: Stable, continue home meds (8) COPD (chronic obstructive pulmonary disease): Code(s): J44.9 - Chronic obstructive pulmonary disease, unspecified Status: Acute Assessment and Plan: Stable, continue home inhalers (9) Acute kidney injury superimposed on CKD: Code(s): N17.9 - Acute kidney failure, unspecified; N18.9 - Chronic kidney disease, unspecified Status: Acute Assessment and Plan: Creatinine 1.7, baseline closer to 1, hold home diuretics, avoid IV fluids due to heart failure, monitor closely on p.o. fluids (10) Leukocytosis: Code(s): D72.829 - Elevated white blood cell count, unspecified Status: Acute Assessment and Plan: Patient consistently with leukocytosis, he appears to range between 13 and 16,000 at baseline Presenting with [id number], likely reactive Check procalcitonin, lactic acid, CRP, trend Observe off antibiotics at this time, recent hospitalization for VRE and MRSA bacteremia, completed 14 day course of ampicillin and linezolid 01/08 Subjective Date/time seen: 01/12/23 12:19 No new complaints Exam Narrative: General: No acute distress, alert and oriented per baseline HEENT: Atraumatic, normocephalic, mucous membranes moist CV: Regular rate and rhythm, S1, S2 Lungs: Clear to auscultation bilaterally, no rales or crackles noted, no wheezes, good air entry Abdomen: Soft, nontender, nondistended Extremities: Normal to inspection Skin: No rashes noted, no lesions or wounds seen Psych: Euthymic, normal affect Objective Data Vital Signs Vital Signs: Vital Signs - 24 hr 01/11/23 14:00 01/11/23 14:45 01/11/23 19:27 Temperature 97.4 F L Pulse Rate 100 85 Respiratory Rate 16 15 Blood Pressure 135/66 Pulse Oximetry 100 Oxygen Delivery Nasal Cannula Oxygen Flow Rate 4 01/11/23 20:13 01/11/23 20:00 01/11/23 22:00 Temperature 97.2 F L Pulse Rate 76 114 H Respiratory Rate 20 Blood Pressure 139/63 Pulse Oximetry 100 99 Oxygen Delivery Nasal Cannula Oxygen Flow Rate 4 01/12/23 01:51 01/12/23 08:24 01/12/23 09:38 Temperature Pulse Rate 81 62 Respiratory Rate
[2023-01-12] MEDS: HYDROcodone/acetaminophen (*CRX) 10-325 MG TABLET 1 TAB PO ×2 (15:37→22:02)
[2023-01-12 16:16] LABS: Glucose Point of Care 229 mg/dl (65-105)
[2023-01-12 17:15] LABS: Glucose Point of Care 227 mg/dl (65-105)
--- NOTE | 2023-01-12 19:04 | PC.NURSE ---
Pt is A&O4 female. Pt is here with broken ribs. Pt has reported pain that was treated with pain medication. Pt has morphine listed as an allergy and pt reports that he is not allergic to morphine. Pt has participated and contributed in plan of care. Will continue to monitor pt.
[2023-01-12] MEDS: FENOFIBRATE NANOCRYSTALLIZED 145 MG TABLET PO (20:56)
[2023-01-12] MEDS: MONTELUKAST SODIUM 10 MG TABLET PO (20:56)
[2023-01-12 20:58] LABS: Glucose Point of Care 267 mg/dl (65-105)
[2023-01-12] MEDS: ZOLPIDEM TARTRATE (*CRX) 5 MG TABLET 10 MG PO (21:00)
[2023-01-13] VITALS (8 sets, daily range): BP systolic 115–140; BP diastolic 62–102; PULSE 68–106; RESP 18–20; TEMP 36–37.1; O2SAT 95–98
[2023-01-13 06:23] LABS: Basophils Absolute Auto 0.2 K/mm3 (0.0-0.1); Basophils Percent Auto 0.9 % (0.2-1.2); Eosinophils Absolute Auto 1.1 K/mm3 (0-0.3); Eosinophils Percent Auto 5.5 % (0-4.4); Hematocrit 35.8 % (42.0-52.0); Hemoglobin 12.2 g/dL (14.0-18.0); Immature Granulocyte Absolute 0.11 K/mm3 (0.00-0.031); Immature Granulocyte Percent A 0.6 % (0-0.5); Lymphocytes Absolute Auto 3.97 K/mm3 (0.9-3.2); Lymphocytes Percent Auto 20.1 % (18.3-44.2); Mean Corpuscular HGB Conc 34.1 g/dl (32-36); Mean Corpuscular Hemoglobin 31.7 pg (26-34); Mean Platelet Volume 11.2 fl (7.4-10.4); Monocytes Absolute Auto 2.8 K/mm3 (0.1-0.6); Monocytes Percent Auto 14.3 % (2.6-8.5); Neutrophils Absolute Auto 11.6 K/mm3 (1.3-6.7); Neutrophils Percent Auto 58.6 % (45.5-73.1); Nucleated Red Blood Cells Perc 0.2 % (0.0-0.2); Platelet Count Result 371 k/mm3 (150-375); Red Blood Count 3.85 M/mm3 (4.6-6.20); Red Cell Distribution Width 13.4 % (11.5-14.5); White Blood Count 19.8 K/mm3 (4.5-10.0)
[2023-01-13 06:27] LABS: Alanine Aminotransferase 21 U/L (6-50); Alkaline Phosphatase 66 U/L (38-126); Anion Gap 3 mmol/L (8-16); Aspartate Amino Transferase 23 U/L (17-59); Bilirubin,Total 0.6 mg/dL (0.2-1.3); Blood Urea Nitrogen 27 mg/dL (9-20); Calcium 9.7 mg/dL (8.4-10.2); Carbon Dioxide 35 mmol/L (22-30); Chloride 95 mmol/L (98-107); Estimated CRCL calculation 73 ml/min; Estimated Glomerular Filt Rate > 60; Glucose 187 mg/dL (65-110); Potassium 3.8 mmol/L (3.4-5.0); Sodium 133 mmol/L (137-145)
[2023-01-13 08:55] LABS: Glucose Point of Care 178 mg/dl (65-105)
[2023-01-13] MEDS: METOPROLOL SUCCINATE EXT REL 25 MG TABCR PO ×2 (09:02→20:39)
[2023-01-13] MEDS: metFORMIN HCL 500 MG TABLET 1000 MG PO ×2 (09:03→18:10)
[2023-01-13] MEDS: VENLAFAXINE HCL 37.5 MG TABLET PO ×2 (09:04→20:40)
[2023-01-13] MEDS: APIXABAN 5 MG TABLET PO ×2 (09:04→20:39)
[2023-01-13] MEDS: FUROSEMIDE 40 MG TABLET PO ×2 (09:04→18:10)
[2023-01-13] MEDS: MAGNESIUM OXIDE 400 MG TABLET PO ×2 (09:04→18:11)
[2023-01-13] MEDS: INSULIN GLARGINE (*BKC) 100 UNITS/ML 37 UNITS SUB-Q (09:04)
[2023-01-13] MEDS: PREGABALIN (*CRX) 50 MG CAPSULE 100 MG PO ×2 (09:06→20:40)
[2023-01-13] MEDS: HYDROcodone/acetaminophen (*CRX) 10-325 MG TABLET 1 TAB PO ×2 (09:07→20:39)
--- NOTE | 2023-01-13 11:38 | PCOTNOTE ---
Patient refused treatment this session. Patient verbalized, Go away, I'm not doing anything .
[2023-01-13 12:29] LABS: Glucose Point of Care 240 mg/dl (65-105)
[2023-01-13] MEDS: INSULIN ASPART (*BKC) 100 UNITS/ML SUB-Q (12:43)
--- NOTE | 2023-01-13 13:42 | PCOTNOTE ---
Attempted again this afternoon, Patient refused treatment this session, stated, leave me alone .
[2023-01-13 17:08] LABS: Glucose Point of Care 148 mg/dl (65-105)
--- NOTE | 2023-01-13 17:46 | PM.IMPN ---
Progress Note: A&P Assessment and Plan (1) Frequent falls: Code(s): R29.6 - Repeated falls Status: Acute Assessment and Plan: Was discharged from our facility recently, refused placement at that admission PT/OT eval Likely still needs rehab Etiology is multifactorial, likely worsened with extended hospitalization recently 01/13/2023 interval history: 62-year-old male with history of recurrent fall presented with hemothorax is found to have multiple rib fracture seen by surgery service does not need any surgical intervention, patient still continue to complain of pain and patient will benefit going to rehab, will have a PT OT evaluate the and further recommendation to follow. (2) Multiple fractures of ribs: Code(s): S22.49XA - Multiple fractures of ribs, unspecified side, initial encounter for closed fracture Status: Acute Assessment and Plan: Pain control, incentive spirometer, up to chair (3) Hemiplegia: Code(s): G81.90 - Hemiplegia, unspecified affecting unspecified side Status: Acute Assessment and Plan: At baseline (4) Type 2 diabetes mellitus with hyperglycemia, with long-term current use of insulin: Code(s): E11.65 - Type 2 diabetes mellitus with hyperglycemia; Z79.4 - custodial (current) use of insulin Status: Acute Assessment and Plan: Blood glucose reviewed 01/11 Accu-Cheks, sliding scale insulin ordered A1c was 7.2 earlier this month 12/25/22 Continue Lantus 37 units daily (5) Chronic diastolic heart failure: Code(s): I50.32 - Chronic diastolic (congestive) heart failure Status: Acute Assessment and Plan: Euvolemic, continue home meds, monitor fluid status Lasix being held secondary to ERIC since 01/10 (6) Depression: Code(s): F32.9 - Major depressive disorder, single episode, unspecified Status: Chronic Assessment and Plan: Stable, continue home meds (7) Neuropathy: Code(s): G62.9 - Polyneuropathy, unspecified Status: Acute Assessment and Plan: Stable, continue home meds (8) COPD (chronic obstructive pulmonary disease): Code(s): J44.9 - Chronic obstructive pulmonary disease, unspecified Status: Acute Assessment and Plan: Stable, continue home inhalers (9) Acute kidney injury superimposed on CKD: Code(s): N17.9 - Acute kidney failure, unspecified; N18.9 - Chronic kidney disease, unspecified Status: Acute Assessment and Plan: Creatinine 1.7, baseline closer to 1, hold home diuretics, avoid IV fluids due to heart failure, monitor closely on p.o. fluids (10) Leukocytosis: Code(s): D72.829 - Elevated white blood cell count, unspecified Status: Acute Assessment and Plan: Patient consistently with leukocytosis, he appears to range between 13 and 16,000 at [place] [id number], likely reactive Check procalcitonin, lactic acid, CRP, trend Observe off antibiotics at this time, recent hospitalization for VRE and MRSA bacteremia, completed 14 day course of ampicillin and linezolid 01/08 Plan DVT prophylaxis with eliquis GI prophylaxis not indicated Code status full code Subjective Date/time seen: 01/13/23 17:46 01/13/2023 interval history: 62-year-old male with history of recurrent fall presented with hemothorax is found to have multiple rib fracture seen by surgery service does not need any surgical intervention, patient still continue to complain of pain and patient will benefit going to rehab, will have a PT OT evaluate the and further recommendation to follow. Review of Systems Review of Systems: All systems reviewed & are unremarkable except as noted in HPI and below Exam Narrative: Patient is comfortable, NAD HEENT: eyes are clear and none icteric LUNGS: Normal respiratory effort ABD: Distended Lower extremities: no edema SKIN: nonjaundiced
[2023-01-13] MEDS: FENOFIBRATE NANOCRYSTALLIZED 145 MG TABLET PO (20:40)
[2023-01-13] MEDS: MONTELUKAST SODIUM 10 MG TABLET PO (20:40)
[2023-01-13] MEDS: diazePAM (*CRX) 2 MG TABLET PO (20:44)
[2023-01-13 21:19] LABS: Glucose Point of Care 237 mg/dl (65-105)
[2023-01-14] VITALS (9 sets, daily range): BP systolic 127–137; BP diastolic 59–90; PULSE 70–101; RESP 18; TEMP 35.9–36.9; O2SAT 92–100
[2023-01-14] MEDS: ACETAMINOPHEN 325 MG TABLET 650 MG PO (04:14)
[2023-01-14 06:25] LABS: Basophils Absolute Auto 0.2 K/mm3 (0.0-0.1); Basophils Percent Auto 0.8 % (0.2-1.2); Eosinophils Absolute Auto 1.4 K/mm3 (0-0.3); Eosinophils Percent Auto 6.6 % (0-4.4); Hematocrit 33.9 % (42.0-52.0); Hemoglobin 11.6 g/dL (14.0-18.0); Immature Granulocyte Absolute 0.15 K/mm3 (0.00-0.031); Immature Granulocyte Percent A 0.7 % (0-0.5); Lymphocytes Absolute Auto 4.51 K/mm3 (0.9-3.2); Lymphocytes Percent Auto 21.1 % (18.3-44.2); Mean Corpuscular HGB Conc 34.2 g/dl (32-36); Mean Corpuscular Hemoglobin 31.7 pg (26-34); Mean Corpuscular Volume 92.6 fl (80-100); Mean Platelet Volume 11.1 fl (7.4-10.4); Monocytes Absolute Auto 2.4 K/mm3 (0.1-0.6); Monocytes Percent Auto 11.3 % (2.6-8.5); Neutrophils Absolute Auto 12.7 K/mm3 (1.3-6.7); Neutrophils Percent Auto 59.5 % (45.5-73.1); Nucleated Red Blood Cells Perc 0.1 % (0.0-0.2); Platelet Count Result 395 k/mm3 (150-375); Red Blood Count 3.66 M/mm3 (4.6-6.20); Red Cell Distribution Width 13.2 % (11.5-14.5); White Blood Count 21.4 K/mm3 (4.5-10.0)
[2023-01-14 06:42] LABS: Anion Gap 3 mmol/L (8-16); Blood Urea Nitrogen 27 mg/dL (9-20); Carbon Dioxide 37 mmol/L (22-30); Chloride 92 mmol/L (98-107); Potassium 3.9 mmol/L (3.4-5.0); Sodium 132 mmol/L (137-145)
[2023-01-14 06:43] LABS: Alanine Aminotransferase 19 U/L (6-50); Albumin Level 3.7 g/dL (3.5-5.1); Alkaline Phosphatase 57 U/L (38-126); Aspartate Amino Transferase 28 U/L (17-59); Bilirubin,Total 0.6 mg/dL (0.2-1.3); Calcium 9.1 mg/dL (8.4-10.2); Estimated CRCL calculation 80 ml/min; Estimated Glomerular Filt Rate > 60; Glucose 108 mg/dL (65-110)
[2023-01-14 08:22] LABS: Glucose Point of Care 88 mg/dl (65-105)
[2023-01-14] MEDS: METOPROLOL SUCCINATE EXT REL 25 MG TABCR PO ×2 (08:27→21:17)
[2023-01-14] MEDS: MAGNESIUM OXIDE 400 MG TABLET PO ×2 (08:27→17:37)
[2023-01-14] MEDS: FUROSEMIDE 40 MG TABLET PO ×2 (08:28→17:37)
[2023-01-14] MEDS: metFORMIN HCL 500 MG TABLET 1000 MG PO ×2 (08:28→17:37)
[2023-01-14] MEDS: APIXABAN 5 MG TABLET PO ×2 (08:28→21:16)
[2023-01-14] MEDS: guaiFENesin 12 HR 600 MG TABCR PO ×2 (08:28→21:16)
[2023-01-14] MEDS: PREGABALIN (*CRX) 50 MG CAPSULE 100 MG PO ×2 (08:31→21:25)
[2023-01-14] MEDS: FLUTICASONE/SALMETEROL 115-21 MCG INHALER 1 PUFF 2 PUFF INHALATION ×2 (09:59→20:42)
[2023-01-14 10:27] LABS: Glucose Point of Care 175 mg/dl (65-105)
[2023-01-14] MEDS: HYDROcodone/acetaminophen (*CRX) 10-325 MG TABLET 1 TAB PO ×2 (11:03→17:37)
[2023-01-14] MEDS: VENLAFAXINE HCL 37.5 MG TABLET PO ×2 (12:25→21:20)
--- NOTE | 2023-01-14 14:09 | PM.DS ---
DS: Admitting Diagnosis Discharge Date 01/14/2023 Admitting Diagnosis Fall with rib fractures DS: Discharge Diagnosis Discharge Diagnosis (1) Frequent falls: Code(s): R29.6 - Repeated falls Status: Acute Assessment and Plan: Was discharged from our facility recently, refused placement at that admission PT/OT eval Likely still needs rehab Etiology is multifactorial, likely worsened with extended hospitalization recently 01/13/2023 interval history: 62-year-old male with history of recurrent fall presented with hemothorax is found to have multiple rib fracture seen by surgery service does not need any surgical intervention, patient still continue to complain of pain and patient will benefit going to rehab, will have a PT OT evaluate the and further recommendation to follow. (2) Multiple fractures of ribs: Code(s): S22.49XA - Multiple fractures of ribs, unspecified side, initial encounter for closed fracture Status: Acute Assessment and Plan: Pain control, incentive spirometer, up to chair (3) Hemiplegia: Code(s): G81.90 - Hemiplegia, unspecified affecting unspecified side Status: Acute Assessment and Plan: At baseline (4) Type 2 diabetes mellitus with hyperglycemia, with long-term current use of insulin: Code(s): E11.65 - Type 2 diabetes mellitus with hyperglycemia; Z79.4 - jail (current) use of insulin Status: Acute Assessment and Plan: Blood glucose reviewed 01/11 Accu-Cheks, sliding scale insulin ordered A1c was 7.2 earlier this month 12/25/22 Continue Lantus 37 units daily (5) Chronic diastolic heart failure: Code(s): I50.32 - Chronic diastolic (congestive) heart failure Status: Acute Assessment and Plan: Euvolemic, continue home meds, monitor fluid status Lasix being held secondary to ERIC since 01/10 (6) Depression: Code(s): F32.9 - Major depressive disorder, single episode, unspecified Status: Chronic Assessment and Plan: Stable, continue home meds (7) Neuropathy: Code(s): G62.9 - Polyneuropathy, unspecified Status: Acute Assessment and Plan: Stable, continue home meds (8) COPD (chronic obstructive pulmonary disease): Code(s): J44.9 - Chronic obstructive pulmonary disease, unspecified Status: Acute Assessment and Plan: Stable, continue home inhalers (9) Acute kidney injury superimposed on CKD: Code(s): N17.9 - Acute kidney failure, unspecified; N18.9 - Chronic kidney disease, unspecified Status: Acute Assessment and Plan: Creatinine 1.7, baseline closer to 1, hold home diuretics, avoid IV fluids due to heart failure, monitor closely on p.o. fluids (10) Leukocytosis: Code(s): D72.829 - Elevated white blood cell count, unspecified Status: Acute Assessment and Plan: Patient consistently with leukocytosis, he appears to range between 13 and 16,000 at baseline Presenting [place] [id number], likely reactive Check procalcitonin, lactic acid, CRP, trend Observe off antibiotics at this time, recent hospitalization for VRE and MRSA bacteremia, completed 14 day course of ampicillin and linezolid 01/08 Plan DVT prophylaxis with eliquis GI prophylaxis not indicated Code status full code DS: Summary Hospital Course Reason for hospitalization: Fall with rib fractures Narrative: 62-year-old male with left-sided hemiplegia from prior CVA, diabetes and CHF is presenting with a fall.? Of note, he was recently discharged after treatment for sepsis with MRSA and VRE bacteremia.? He was noted to have rib fractures in the ER.? He was admitted for pain control and possible placement. No chest pain or shortness of breath.? No nausea, vomiting or diarrhea.? No fevers or chills. Hospital Course: ? 62-year-old male with history of recurrent fall presented with hemothorax is found to have multi
[2023-01-14 16:36] LABS: EDCOVIDSCREEN Negative (Negative)
[2023-01-14 17:03] LABS: Glucose Point of Care 218 mg/dl (65-105)
[2023-01-14] MEDS: INSULIN ASPART (*BKC) 100 UNITS/ML SUB-Q (17:38)
--- NOTE | 2023-01-14 19:43 | PC.NURSE ---
Pt discharging this evening and being transported by EMS. Pt was provided with a list of different resources in the area. Pt has no IV access to remove prior to discharge. Pt was monitored for any changes during the shift.
[2023-01-14] MEDS: FENOFIBRATE NANOCRYSTALLIZED 145 MG TABLET PO (21:26)
[2023-01-14] MEDS: MONTELUKAST SODIUM 10 MG TABLET PO (21:27)
[2023-01-14 21:53] LABS: Glucose Point of Care 195 mg/dl (65-105)
[2023-01-14 23:13] LABS: Glucose Point of Care 176 mg/dl (65-105)
== END 2023-01-14 23:20 ==
LOC: ANHED 05:55 → ANH3MEDSUR 06:24
PROVIDERS: Internal Medicine; Admitting Provider Student in an Organized Health Care Education/Training Program; Emergency Provider Emergency Medicine; PCP Internal Medicine; Visit Provider Family Medicine
DX: J94.2 Hemothorax (principal); S22.42XA Multiple fractures of ribs, left side, initial encounter for closed fracture; W19.XXXA Unspecified fall, initial encounter; R29.6 Repeated falls; I69.354 Hemiplegia and hemiparesis following cerebral infarction affecting left non-dominant side; E11.65 Type 2 diabetes mellitus with hyperglycemia; E11.22 Type 2 diabetes mellitus with diabetic chronic kidney disease; N18.9 Chronic kidney disease, unspecified; I50.32 Chronic diastolic (congestive) heart failure; Z20.822 Contact with and (suspected) exposure to COVID-19; F32.9 Major depressive disorder, single episode, unspecified; G62.9 Polyneuropathy, unspecified; J44.9 Chronic obstructive pulmonary disease, unspecified; D17.79 Benign lipomatous neoplasm of other sites; Z91.81 History of falling; D64.9 Anemia, unspecified; R41.9 Unspecified symptoms and signs involving cognitive functions and awareness; N40.0 Benign prostatic hyperplasia without lower urinary tract symptoms; F40.240 Claustrophobia; M54.12 Radiculopathy, cervical region; D72.829 Elevated white blood cell count, unspecified; G43.909 Migraine, unspecified, not intractable, without status migrainosus; R94.31 Abnormal electrocardiogram [ECG] [EKG]; R00.0 Tachycardia, unspecified; D75.81 Myelofibrosis; G47.33 Obstructive sleep apnea (adult) (pediatric); Z86.711 Personal history of pulmonary embolism; I49.3 Ventricular premature depolarization; R90.82 White matter disease, unspecified; J90 Pleural effusion, not elsewhere classified; N17.9 Acute kidney failure, unspecified; F12.90 Cannabis use, unspecified, uncomplicated; Z79.51 Long term (current) use of inhaled steroids; Z79.1 Long term (current) use of non-steroidal anti-inflammatories (NSAID); Z79.01 Long term (current) use of anticoagulants; Z79.4 Long term (current) use of insulin; Z79.84 Long term (current) use of oral hypoglycemic drugs; Z79.899 Other long term (current) drug therapy; Z86.19 Personal history of other infectious and parasitic diseases; Z87.891 Personal history of nicotine dependence; Z86.14 Personal history of Methicillin resistant Staphylococcus aureus infection; Z82.49 Family history of ischemic heart disease and other diseases of the circulatory system
CPT/HCPCS: 36415; 70450; 71045; 71046; 71250; 72125; 74176; 80053; 82948; 83036; 83605; 83690; 83735; 83880; 84484; 85025; 85610; 85730; 87426; 93005; 94640; 97161; 97166; 99285; A9270; C9803; G0378; J1815

== ENCOUNTER 2023-01-27 13:10 | Inpatient (IN) | payer MEDICARE, MEDICAID, SELFPAY ==
[2023-01-27] VITALS (34 sets, daily range): BP systolic 135–167; BP diastolic 60–140; PULSE 59–118; RESP 12–28; TEMP 35.8–36.9; O2SAT 91–100
--- NOTE | ~2023-01-27 | XR_ITS ---
EXAMINATION: XR chest 2V Exam Date/Time: 01/27/2023 14:15 CDT HISTORY: weakness LEFT SIDED WEAKNESS AND FALL X 2 TODAY Comparison: 01/13/2023. RESULT: Lines, tubes, and devices: None. Lungs and pleura: Clear. Chronic left lateral costophrenic angle blunting. Cardiomediastinal silhouette: Stable. Other: No acute osseous or upper abdominal finding. IMPRESSION: Small left pleural effusion versus chronic pleural parenchymal scar, otherwise no acute cardiopulmona ry process. Reviewed, dictated and finalized at location K. IMPRESSION: Small left pleural effusion versus chronic pleural parenchymal scar, otherwise no acute cardiopulmonary process.
--- NOTE | ~2023-01-27 | XR_ITS ---
EXAM: XR wrist LT 2V DATE: 01/27/2023 20:06 HISTORY: post splint . COMPARISON: Same date at 6:34 PM. FINDINGS/IMPRESSION: Interval temporary cast placement. Unchanged alignment of the distal left radial and ulnar fractures. Reviewed, dictated and finalized at location K.
--- NOTE | ~2023-01-27 | XR_ITS ---
EXAMINATION: XR chest 1V portable INDICATION: Cough TECHNIQUE: Portable AP chest at 1030 hours COMPARISON: 01/27/2023 FINDINGS: There are minimal airspace opacities of the lung bases. No pleural effusion or pneumothorax . The cardiomediastinal silhouette is normal. There is an old healed fracture of the proximal left hu merus. IMPRESSION: 1. Minimal bibasilar airspace opacity, consistent with atelectasis versus pneumonia. Reviewed, dictated and finalized at location A. IMPRESSION: 1. Minimal bibasilar airspace opacity, consistent with atelectasis versus pneum onia.
--- NOTE | ~2023-01-27 | XR_ITS ---
EXAM: XR wrist LT min 3V DATE: 01/27/2023 18:43 HISTORY: L.WRIST PAIN . COMPARISON: None available. FINDINGS: Normal mineralization. Comminuted fracture of the distal left radius, with intra-articular extension, 4 mm lateral displacement and 36 degrees dorsal angulation. Transverse fracture of the di stal left ulna with mild dorsal angulation No lytic or blastic lesion. Joint spaces are maintained. N o erosion or periosteal change. Soft tissues within normal limits. IMPRESSION: Comminuted, intra-articular, mildly displaced, and dorsally angulated distal left radial fracture. Distal left ulnar fracture with mild dorsal angulation. Reviewed, dictated and finalized at location K. IMPRESSION: Comminuted, intra-articular, mildly displaced, and dorsally angulat ed distal left radial fracture. Distal left ulnar fracture with mild dorsal ang ulation.
--- NOTE | 2023-01-27 14:07 | ED.GENADULT ---
HPI - General Adult General Chief complaint: Fall Stated complaint: weakness Time Seen by Provider: 01/27/23 13:20 History of Present Illness HPI narrative: Patient is a 62-year-old male who presents ER because he fell at home today. Reports he was standing trying to make soup when he lost his balance and fell to the ground. Patient ambulates with a 4 prong walker. He did not strike his head or lose consciousness. Patient is chronically dependent on 3 L of home O2, he also takes eliquis. He has no new shortness of breath. No fevers or chills or sweats. No new cough. Patient reports recently he suffered rib fracture from a fall 2-1/2 weeks ago. Has scattered healing abrasions related to this. Patient also reports left wrist pain but has a chronic injury from a year ago. Related Data Home Medications Medication Instructions Recorded Confirmed budesonide-formoterol HFA 160 2 puff inhalation Q12H 11/08/20 01/11/23 mcg-4.5 mcg/actuation aerosol inhaler (Symbicort) cholecalciferol (vitamin D3) 1,250 1,250 mcg PO WEEKLY 11/08/20 01/11/23 mcg (50,000 unit) capsule montelukast 10 mg tablet 10 mg PO HS 11/08/20 01/11/23 cyclobenzaprine 10 mg tablet 10 mg PO Q8H PRN Muscle Spasm 04/11/21 01/11/23 venlafaxine 37.5 mg tablet 37.5 mg PO Q12H 04/11/21 01/11/23 pregabalin 100 mg capsule (Lyrica) 100 mg PO Q12H 07/17/22 01/11/23 fenofibrate micronized 200 mg 160 mg PO HS 08/26/22 01/11/23 capsule magnesium hydroxide 400 mg/5 mL 30 ml PO HS PRN Constipation 08/26/22 01/11/23 oral suspension (Milk of Magnesia) magnesium oxide 400 mg (241.3 mg 400 mg PO BID 08/26/22 01/11/23 magnesium) tablet zolpidem 10 mg tablet (Ambien) 10 mg PO HS PRN Insomnia 12/24/22 01/11/23 furosemide 40 mg tablet 40 mg PO BID 01/11/23 01/11/23 metformin 1,000 mg tablet 1,000 mg PO Q12H 01/11/23 01/11/23 neomycin-bacitracn Zn-polymyx 3.5 1 applic topical QAM PRN infection 01/11/23 01/11/23 mg-400 unit-5,000 unit/gram top oint (Triple Antibiotic) pravastatin 40 mg tablet 40 mg PO 01/11/23 sennosides 8.6 mg-docusate sodium 2 tab-cap PO HS PRN constipation 01/11/23 01/11/23 50 mg tablet (Senokot-S) Allergies Allergy/AdvReac Type Severity Reaction Status Date / Time naproxen Allergy Intermediate SWELLING Verified 01/27/23 13:18 cefepime Allergy Unknown Blister Verified 01/27/23 13:18 iohexol Allergy Unknown Unknown Verified 01/27/23 13:18 [From contrast - CT, X-RAY] Review of Systems Review of Systems: All systems reviewed & are unremarkable except as noted in HPI and below Constitutional: Constitutional: Denies chills, Denies fatigue and Denies fever(s) ENT: Denies nasal congestion and Denies sore throat Respiratory: Respiratory: Denies cough and Denies dyspnea Gastrointestinal: Gastrointestinal: Denies abdominal pain, Denies nausea and Denies vomiting Musculoskeletal: Musculoskeletal: Reports arthralgias and Denies joint swelling Integumentary/Breasts: Skin/Breast: Denies erythema, Denies rash and Denies skin ulcer Neurologic: Denies focal weakness and Denies numbness PMFSH Past Medical History Medical History Anemia Anxiety Benign prostatic hyperplasia Cerebrovascular accident (2014) Chronic diastolic heart failure Chronic kidney disease Claustrophobia Depression Diastolic heart failure Echo 08/2022: Mild concentric hypertrophy, systolic function 74%, grade 2 diastolic dysfunction, mild left atrial enlargement, right ventricle not well visualized but grossly normal Enterobacter sepsis Secondary to UTI. Fracture of proximal end of left humerus Left cervical radiculopathy Migraines MRSA infection Myelofibrosis Neuropathy Obstructive sleep apnea Noncompliant with CPAP Pulmonary embolism (~01/2020) PVD (peripheral vascular disease) Type 2 diabetes mellitus Surgical History Surgical History Amputation of
[2023-01-27 14:08] LABS: Hematocrit 37.1 % (42.0-52.0); Hemoglobin 12.3 g/dL (14.0-18.0); Mean Corpuscular HGB Conc 33.2 g/dl (32-36); Mean Corpuscular Hemoglobin 31.4 pg (26-34); Mean Corpuscular Volume 94.6 fl (80-100); Mean Platelet Volume 10.8 fl (7.4-10.4); Platelet Count Result 795 k/mm3 (150-375); Red Blood Count 3.92 M/mm3 (4.6-6.20); White Blood Count 22.6 K/mm3 (4.5-10.0)
[2023-01-27 14:21] LABS: Alanine Aminotransferase 19 U/L (6-50); Albumin Level 4.3 g/dL (3.5-5.1); Alkaline Phosphatase 85 U/L (38-126); Anion Gap 9 mmol/L (8-16); Aspartate Amino Transferase 33 U/L (17-59); Bilirubin,Total 0.8 mg/dL (0.2-1.3); Blood Urea Nitrogen 24 mg/dL (9-20); Calcium 10.2 mg/dL (8.4-10.2); Carbon Dioxide 25 mmol/L (22-30); Chloride 104 mmol/L (98-107); Estimated CRCL calculation 75 ml/min; Estimated Glomerular Filt Rate > 60; Glucose 183 mg/dL (65-110); Potassium 4.8 mmol/L (3.4-5.0); Sodium 138 mmol/L (137-145)
[2023-01-27 14:35] LABS: Eosinophils Absolute Manual 0.45 K/mm3 (0.02-0.5); Eosinophils Percent Manual 2 % (0-4); Lymphocytes Absolute Manual 2.26 K/mm3 (1.1-4.5); Monocytes Absolute Manual 1.13 K/mm3 (0.1-0.90); Monocytes Percent Manual 5 % (3-9); Neutrophils Percent Manual 83 % (46-73); Total Cells Counted 100
[2023-01-27 14:36] LABS: Platelet Estimate Increased (Adequate); Schistocytes None Seen (NORMAL)
--- NOTE | 2023-01-27 15:03 | PC.NURSE ---
patient unable to provide urine sample at this time. refusing straight cath.
--- NOTE | 2023-01-27 16:11 | PC.NURSE ---
patient still unable to provide urine sample. refusing straight cath. given fluids and encouraged to provide urine sample. understands plan of care.
[2023-01-27 17:34] LABS: Appearance Urine Clear (Clear); Bacteria Urine None Seen /hpf; Bilirubin Urine Negative (Negative); Blood Urine Negative (Negative); Color Urine Yellow (Yellow); Glucose Urine UA Negative (Negative); Hyaline Casts Urine Present /lpf; Ketones Urine Trace mg/dL (Negative); Leukocyte Esterase Ur Trace LEU/UL (Negative); Nitrate Urine Negative (Negative); Protein Urine 3+ mg/dL (Negative); RBC Urine 0-2 /hpf (0-2); Specific Grav Ur 1.018 (1.001-1.035); Squamous Epithelial Cell Urine None seen /hpf (Few); WBC Urine 0-5 /hpf; pH Urine 6.5 (5.0-9.0)
[2023-01-27 17:35] LABS: Add Urine Microscopic? YES
--- NOTE | 2023-01-27 18:23 | PC.NURSE ---
Spoke with Alyx, patient girlfriend, she is going to bring up patient 4 prong cane for ambulation trial because patient stating he can't walk without it. will road test when cane arrives.
--- NOTE | 2023-01-27 19:19 | PC.NURSE ---
attempted to call raul to get update regarding cane. raul did not answer at this time. MD Canales aware. patient refusing to get up without cane to attempt to walk
[2023-01-27] MEDS: HYDROmorphone HCL INJ (*CRX) 1 MG/ML SYR 0.5 MG IV PUSH ×2 (19:43→19:49)
--- NOTE | 2023-01-27 20:29 | PM.IMHP ---
H&P: HPI History of Present Illness Date/Time: 01/27/23 20:29 Chief Complaint: 62 years old male with past medical history of diabetes mellitus type 2 CHF pulmonary embolism on Eliquis chronic hypoxemic respiratory failure on oxygen myelofibrosis recurrent fall hemothorax multiple rib fracture refused placement in the past presented with the hospital status post fall patient was standing trying to make a soup lost balance and fell to the ground patient started complaining of left wrist pain patient denies loss of consciousness chest pain shortness of breath patient had recurrent falls in the past x-ray in the ER showed distal radius and ulna fracture reduced in the ER orthopedic surgery was consulted most likely patient is nonsurgical candidate Review of Systems Review of Systems: Twelve system review done negative except above [facility] Past Medical History Medical History Anemia Anxiety Benign prostatic hyperplasia Cerebrovascular accident (2014) Chronic diastolic heart failure Chronic kidney disease Claustrophobia Depression Diastolic heart failure Echo 08/2022: Mild concentric hypertrophy, systolic function 74%, grade 2 diastolic dysfunction, mild left atrial enlargement, right ventricle not well visualized but grossly normal Enterobacter sepsis Secondary to UTI. 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 Smoking packs per day: 0.75 Smoking cigarettes per day: 15.0 Years smoked: 40 Smoking pack-years: 30.00 Smoking status: Former smoker Tobacco type: cigars Smoking end date: 10/18/94 Alcohol intake: never Alcohol use details: 1/month Substance use: former Substance use type: does not use Lack of Transportation: No Lack of Food: Never True Current Housing: I Have Housing Concerned About Future Housing: YES Difficulty Paying Gas/Electric Bills: No Difficulty Paying for Meds: No Currently Unemployed: No Education: Bachelor's Degree Difficulty w/ Childcare or Family Care: No Living arrangements: with family Additional living arrangements comments: The patient lives with his girlfriend. Occupation/Education: other Additional occupation/education comments: On disability. Spiritual care concerns: No Agree to blood products: Yes Meds Home Medications and Allergies Home Medications Medication Instructions Recorded Confirmed Type budesonide-formoterol HFA 160 2 puff inhalation Q12H 11/08/20 01/11/23 History mcg-4.5 mcg/actuation aerosol inhaler (Symbicort) cholecalciferol (vitamin D3) 1,250 1,250 mcg PO WEEKLY 11/08/20 01/11/23 History mcg (50,000 unit) capsule montelukast 10 mg tablet 10 mg PO HS 11/08/20 01/11/23 History cyclobenzaprine 10 mg tablet 10 mg PO Q8H PRN Muscle Spasm 04/11/21 01/11/23 History venlafaxine 37.5 mg tablet 37.5 mg PO Q12H 04/11/21 01/11/23 History pregabalin 100 mg capsule (Lyrica) 100 mg PO Q12H 07/17/22 01/11/23 History acetaminophen 325 mg tablet (
[2023-01-27 21:02] LABS: Glucose Point of Care 116 mg/dl (65-105)
--- NOTE | 2023-01-27 21:35 | ADMGEN ---
This patient, Jeremías Gaines, was admitted to [facility] Room 304-02. Patient/family oriented to hospital policies and general routines including ID bracelet, bed and alarms, visiting hours, pain management, procedures, bathroom and other care routines, personal items, smoking policy, room service/diet, and visiting hours. Information on how to activate the Rapid Response Team has been discussed. Patient/Family are encouraged to report perceived risks to care and to ask questions if they do not understand what they are told or what they should do.
[2023-01-27 21:38] LABS: Troponin I 0.012 ng/mL (0.000-0.034)
[2023-01-27 21:44] LABS: Creatinine Urine 105.8 mg/dL
[2023-01-27] MEDS: MORPHINE SULFATE (*CRX) 2 MG/ML INJ IV PUSH (22:32)
[2023-01-27] MEDS: SODIUM CHLORIDE 0.9% IV 1,000 ML 60 ML IV CONT (23:16)
[2023-01-28] VITALS (11 sets, daily range): BP systolic 127–141; BP diastolic 62–64; PULSE 80–104; RESP 16–20; TEMP 35.6–35.7; O2SAT 58–100; BMI 33.7
[2023-01-28] MEDS: ACETAMINOPHEN 325 MG TABLET 650 MG PO ×2 (02:24→11:28)
[2023-01-28] MEDS: MORPHINE SULFATE (*CRX) 2 MG/ML INJ IV PUSH ×4 (05:32→20:05)
[2023-01-28 07:32] LABS: Basophils Absolute Auto 0.1 K/mm3 (0.0-0.1); Basophils Percent Auto 0.7 % (0.2-1.2); Eosinophils Absolute Auto 0.8 K/mm3 (0-0.3); Eosinophils Percent Auto 4.3 % (0-4.4); Hematocrit 32.9 % (42.0-52.0); Immature Granulocyte Absolute 0.18 K/mm3 (0.00-0.031); Lymphocytes Absolute Auto 2.92 K/mm3 (0.9-3.2); Lymphocytes Percent Auto 15.5 % (18.3-44.2); Mean Corpuscular HGB Conc 33.4 g/dl (32-36); Mean Corpuscular Hemoglobin 30.6 pg (26-34); Mean Corpuscular Volume 91.6 fl (80-100); Monocytes Absolute Auto 1.9 K/mm3 (0.1-0.6); Neutrophils Percent Auto 68.5 % (45.5-73.1); Nucleated Red Blood Cells Perc 0.1 % (0.0-0.2); Platelet Count Result 699 k/mm3 (150-375); Red Blood Count 3.59 M/mm3 (4.6-6.20); Red Cell Distribution Width 13.4 % (11.5-14.5); White Blood Count 18.9 K/mm3 (4.5-10.0)
[2023-01-28 07:41] LABS: Alanine Aminotransferase 17 U/L (6-50); Albumin Level 3.6 g/dL (3.5-5.1); Alkaline Phosphatase 86 U/L (38-126); Anion Gap 6 mmol/L (8-16); Aspartate Amino Transferase 23 U/L (17-59); Bilirubin,Total 0.6 mg/dL (0.2-1.3); Blood Urea Nitrogen 19 mg/dL (9-20); Calcium 8.8 mg/dL (8.4-10.2); Carbon Dioxide 28 mmol/L (22-30); Chloride 97 mmol/L (98-107); Estimated CRCL calculation 75 ml/min; Estimated Glomerular Filt Rate > 60; Glucose 148 mg/dL (65-110); Potassium 4.2 mmol/L (3.4-5.0); Sodium 131 mmol/L (137-145)
[2023-01-28 07:44] LABS: Glucose Point of Care 148 mg/dl (65-105)
[2023-01-28 07:53] LABS: Troponin I 0.017 ng/mL (0.000-0.034)
[2023-01-28] MEDS: HYDROcodone/acetaminophen (*CRX) 5-325 MG TABLET 1 TAB PO ×2 (07:59→17:14)
[2023-01-28] MEDS: FAMOTIDINE 20 MG TABLET PO ×2 (07:59→20:07)
[2023-01-28] MEDS: ENOXAPARIN 40 MG/0.4 ML SYRINGE SUB-Q (08:00)
[2023-01-28] MEDS: ONDANSETRON INJ 4 MG/2 ML VIAL IV PUSH (08:00)
[2023-01-28 11:37] LABS: Glucose Point of Care 316 mg/dl (65-105)
[2023-01-28] MEDS: INSULIN ASPART (*BKC) 100 UNITS/ML SUB-Q ×2 (12:11→17:15)
--- NOTE | 2023-01-28 12:33 | PM.CNOR ---
Assessment and Plan Assessment and plan (1) Distal radius fracture, left: Qualifiers: Encounter type: initial encounter Fracture morphology: other intra-articular Fracture type: closed Qualified Code(s): S52.572A - Other intraarticular fracture of lower end of left radius, initial encounter for closed fracture Code(s): S52.502A - Unspecified fracture of the lower end of left radius, initial encounter for closed fracture Status: Acute Plan 62-year-old male with a displaced intra-articular left distal radius fracture. Provisional reduction in the emergency room gave decent alignment. Although it is not anatomic, given that he has essentially no use of his left upper extremity it should heal up and not be an issue. Plan would be to leave him in the current splint for two weeks followed by short-arm splint versus short-arm cast for another 4-6 weeks. After that he could probably be in a removable splint. We will have therapy work with him using a single handled walker right hand. I will follow while he is in the hospital. Thank you for the consultation. History of Present Illness HPI Consult date: 01/28/23 Chief complaint: wrist fracture, high risk falls Narrative: This document created with [id number] technology and is subject to commercial driver irregularities. 62-year-old male who fell at home yesterday suffering a left distal radius fracture. This was provisionally reduced in the ER and splinted. He has frequent falls. He has been in and out of rehab. It is unclear as to why he does not stay longer other than he feels like he is in being helped. Reviewing the chart he does have multiple medical problems including hemiplegia affecting at least the distal portion of left upper extremity. He has a four prong cane that he uses at home has a gait aid. He is diabetic. He has had multiple amputations on his feet. Remainder of the complex medical history well detailed in the chart. Review of Systems Constitutional: Constitutional: Reports no additional constitutional complaints [facility] Past Medical History Medical History (Updated 01/28/23 @ 12:40 by Ryan Lao MD) Anemia Anxiety Benign prostatic hyperplasia Cerebrovascular accident (2014) Chronic diastolic heart failure Chronic kidney disease Claustrophobia Depression Diastolic heart failure Echo 08/2022: Mild concentric hypertrophy, systolic function 74%, grade 2 diastolic dysfunction, mild left atrial enlargement, right ventricle not well visualized but grossly normal Distal radius fracture, left Enterobacter sepsis Secondary to UTI. 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 Smoking packs per day: 0.75 Smoking cigarettes per day: 15.0 Years smoked: 40 Smoking pack-years: 30.00 Smoking status: Current every day smoker Tobacco type: cigars Smoking end date: 10/18/94 Alcohol intake: never Alcohol use details: 1/month Substance use: former Substance use type: does not use Lack of Transpor
--- NOTE | 2023-01-28 12:45 | PM.IMPN ---
Progress Note: A&P Assessment and Plan (1) Distal radius fracture, left: Code(s): S52.502A - Unspecified fracture of the lower end of left radius, initial encounter for closed fracture Status: Acute Assessment and Plan: Wrist xray LT communicated intra-articular, mild displaced, and dorsally angulated distal left radial fracture, distal left ulnar fracture with mild dorsal angulation Currently patient is not able to use his walker due to distal radius fracture Orthopedic consult Patient most likely would benefit from placement Pain control Closed reduction was done in ED PT/OT when appropiate (2) Anticoagulated by anticoagulation treatment: Code(s): Z79.01 - correction (current) use of anticoagulants Status: Acute Assessment and Plan: History of PE will hold Eliquis today start Lovenox Resume Eliquis if no plan for surgical intervention Takes for PE (3) Chronic diastolic heart failure: Code(s): I50.32 - Chronic diastolic (congestive) heart failure Status: Acute Assessment and Plan: Monitor closely avoid volume overload Chronic diastolic heart failure not in acute exacerbation Trend daily weights Cardiac diet Trend urine output (4) Frequent falls: Code(s): R29.6 - Repeated falls Status: Acute Assessment and Plan: Multifactorial most likely related to deconditioning multiple comorbidities that patient has as above PT OT eval Patient uses a cane at home for ambulation May benefit from placement (5) Leukocytosis: Code(s): D72.829 - Elevated white blood cell count, unspecified Status: Acute Assessment and Plan: Most likely related to myelofibrosis follow-up with Heme-Onc as outpatient Most likely chronic appears to trend 13-30 Continue to trend (6) Hemiplegia: Code(s): G81.90 - Hemiplegia, unspecified affecting unspecified side Status: Acute Assessment and Plan: Secondary to chronic CVA Resume home medication (7) Type 2 diabetes mellitus with hyperglycemia, with long-term current use of insulin: Code(s): E11.65 - Type 2 diabetes mellitus with hyperglycemia; Z79.4 - watermelon harvesting supervisor (current) use of insulin Status: Acute Assessment and Plan: Glucose 148 A1c 01/11/23 7.2 Insulin sliding scale Trend glucose hypoglycemia protocol accu cheks (8) COPD (chronic obstructive pulmonary disease): Code(s): J44.9 - Chronic obstructive pulmonary disease, unspecified Status: Acute Assessment and Plan: Stable continue home medication chronic No supplemental oxygen indicated continue to trend resp status Time Spent With Patient Time: 48 minutes Time with patient: Greater than 35 minutes Subjective Date/time seen: 01/28/23 1245 Interval history: 01/28/231244 Patient was lying in bed. He did have his arm wrapped. He stated he was in pain all over and it was a 20/10. Currently he is denying any chest pain or shortness of breath. He is also denying any nausea or vomiting. He is denying any diarrhea constipation. He did state that he was feeling kind of strong. He also was concerned about the spot on his left face. He would like it biopsied however I think that would need to be done outpatient. Did as was to go see it to see if they knew what kind of was. He did state that he shaves over lot and trim that down that way. 01/27/23? 20:29 62 years old male with past medical history of diabetes mellitus type 2 CHF pulmonary embolism on Eliquis chronic hypoxemic respiratory failure on oxygen myelofibrosis recurrent fall hemothorax multiple rib fracture refused placement in the past presented with the hospital status post fall patient was standing trying to make a soup lost balance and fell to the ground patient star
--- NOTE | 2023-01-28 12:45 | P.PNIM_ITS ---
Progress Note: A&P Assessment and Plan (1) Distal radius fracture, left: Code(s): S52.502A - Unspecified fracture of the lower end of left radius, initial encounter for closed fracture Status: Acute Assessment and Plan: * Wrist xray LT communicated intra-articular, mild displaced, and dorsally angulated distal left radial fracture, distal left ulnar fracture with mild dorsal angulation * Currently patient is not able to use his walker due to distal radius fracture * Orthopedic consult * Patient most likely would benefit from placement * Pain control * Closed reduction was done in ED * PT/OT when appropiate (2) Anticoagulated by anticoagulation treatment: Code(s): Z79.01 - curatorial assistant (current) use of anticoagulants Status: Acute Assessment and Plan: * History of PE will hold Eliquis today start Lovenox * Resume Eliquis if no plan for surgical intervention * Takes for PE (3) Chronic diastolic heart failure: Code(s): I50.32 - Chronic diastolic (congestive) heart failure Status: Acute Assessment and Plan: * Monitor closely avoid volume overload * Chronic diastolic heart failure not in acute exacerbation * Trend daily weights * Cardiac diet * Trend urine output (4) Frequent falls: Code(s): R29.6 - Repeated falls Status: Acute Assessment and Plan: * Multifactorial most likely related to deconditioning multiple comorbidities t hat patient has as above * PT OT eval * Patient uses a cane at home for ambulation * May benefit from placement (5) Leukocytosis: Code(s): D72.829 - Elevated white blood cell count, unspecified Status: Acute Assessment and Plan: * Most likely related to myelofibrosis follow-up with Heme-Onc as outpatient * Most likely chronic appears to trend 13-30 * Continue to trend (6) Hemiplegia: Code(s): G81.90 - Hemiplegia, unspecified affecting unspecified side Status: Acute Assessment and Plan: * Secondary to chronic CVA * Resume home medication (7) Type 2 diabetes mellitus with hyperglycemia, with long-term current use of insulin: Code(s): E11.65 - Type 2 diabetes mellitus with hyperglycemia; Z79.4 - curatorial assistant (current) use of insulin Status: Acute Assessment and Plan: * Glucose 148 * A1c 01/11/23 7.2 * Insulin sliding scale * Trend glucose * hypoglycemia protocol * accu cheks (8) COPD (chronic obstructive pulmonary disease): Code(s): J44.9 - Chronic obstructive pulmonary disease, unspecified Status: Acute Assessment and Plan: * Stable continue home medication * chronic * No supplemental oxygen indicated * continue to trend resp status Time Spent With Patient Time: 48 minutes Time with patient: Greater than 35 minutes Subjective Date/time seen: 01/28/231244 Interval history: 01/28/231244 Patient was lying in bed. He did have his arm wrapped. He stated he was in pain all over and it was a 20/10. Currently he is denying any chest pain or shortness of breath. He is also denying any nausea or vomiting. He is denying any diarrhea constipation. He did state that he was feelin
[2023-01-28 16:25] LABS: Glucose Point of Care 201 mg/dl (65-105)
[2023-01-28] MEDS: MAGNESIUM OXIDE 400 MG TABLET PO (17:14)
[2023-01-28] MEDS: VENLAFAXINE HCL 37.5 MG TABLET PO (17:14)
[2023-01-28] MEDS: FUROSEMIDE 40 MG TABLET PO (17:14)
[2023-01-28] MEDS: TOLNAFTATE 1% POWDER 45 GM BTL 1 APPLIC TOPICAL ×2 (17:15→20:11)
[2023-01-28] MEDS: MICONAZOLE NITRATE 2% CREAM 30 GM TUBE 1 APPLIC TOPICAL ×2 (17:15→20:09)
--- NOTE | 2023-01-28 17:48 | PC.NURSE ---
Redness noted to patients coccyx/bottom area. Pt. was incontinent of urine most of day today. Entire area blanches. Coccyx mepilex placed on patient. Patient refuses to have a pillow placed under him at this time to remove pressure off bottom, stating I can turn and move myself, I don't need to be turned. Patient educated on benefits of q2hour turning and repositioning and need to keep bottom dry and clean.
[2023-01-28] MEDS: FLUTICASONE/SALMETEROL 115-21 MCG INHALER 1 PUFF 2 PUFF INHALATION (19:57)
[2023-01-28] MEDS: diazePAM (*CRX) 2 MG TABLET PO (20:06)
[2023-01-28] MEDS: APIXABAN 5 MG TABLET PO (20:06)
[2023-01-28] MEDS: METOPROLOL SUCCINATE EXT REL 25 MG TABCR PO (20:07)
[2023-01-28] MEDS: guaiFENesin 12 HR 600 MG TABCR PO (20:07)
[2023-01-28] MEDS: FENOFIBRATE 160 MG TABLET PO (20:10)
[2023-01-28] MEDS: MONTELUKAST SODIUM 10 MG TABLET PO (20:20)
[2023-01-28] MEDS: PREGABALIN (*CRX) 50 MG CAPSULE 100 MG PO (20:24)
[2023-01-28] MEDS: ZOLPIDEM TARTRATE (*CRX) 5 MG TABLET 10 MG PO (22:10)
[2023-01-28 22:17] LABS: Glucose Point of Care 239 mg/dl (65-105)
[2023-01-29] VITALS (10 sets, daily range): BP systolic 117–131; BP diastolic 61–71; PULSE 76–94; RESP 16–18; TEMP 35.5–37.1; O2SAT 98–100
[2023-01-29] MEDS: MORPHINE SULFATE (*CRX) 2 MG/ML INJ IV PUSH ×3 (02:42→21:05)
[2023-01-29 05:03] LABS: Glucose Point of Care 199 mg/dl (65-105)
[2023-01-29 06:51] LABS: Basophils Absolute Auto 0.1 K/mm3 (0.0-0.1); Basophils Percent Auto 0.7 % (0.2-1.2); Eosinophils Absolute Auto 0.7 K/mm3 (0-0.3); Eosinophils Percent Auto 3.7 % (0-4.4); Hematocrit 34.1 % (42.0-52.0); Hemoglobin 11.4 g/dL (14.0-18.0); Immature Granulocyte Absolute 0.18 K/mm3 (0.00-0.031); Lymphocytes Absolute Auto 2.35 K/mm3 (0.9-3.2); Lymphocytes Percent Auto 12.9 % (18.3-44.2); Mean Corpuscular HGB Conc 33.4 g/dl (32-36); Mean Corpuscular Hemoglobin 31.3 pg (26-34); Mean Corpuscular Volume 93.7 fl (80-100); Mean Platelet Volume 10.9 fl (7.4-10.4); Monocytes Absolute Auto 1.5 K/mm3 (0.1-0.6); Neutrophils Absolute Auto 13.4 K/mm3 (1.3-6.7); Neutrophils Percent Auto 73.7 % (45.5-73.1); Platelet Count Result 668 k/mm3 (150-375); Red Blood Count 3.64 M/mm3 (4.6-6.20); Red Cell Distribution Width 13.6 % (11.5-14.5); White Blood Count 18.2 K/mm3 (4.5-10.0)
[2023-01-29 07:05] LABS: Alanine Aminotransferase 18 U/L (6-50); Alkaline Phosphatase 98 U/L (38-126); Anion Gap 6 mmol/L (8-16); Aspartate Amino Transferase 27 U/L (17-59); Bilirubin,Total 0.7 mg/dL (0.2-1.3); Blood Urea Nitrogen 17 mg/dL (9-20); Calcium 8.9 mg/dL (8.4-10.2); Carbon Dioxide 28 mmol/L (22-30); Chloride 99 mmol/L (98-107); Estimated CRCL calculation 75 ml/min; Estimated Glomerular Filt Rate > 60; Glucose 205 mg/dL (65-110); Magnesium 1.2 mg/dL (1.6-2.3); Potassium 3.9 mmol/L (3.4-5.0); Sodium 133 mmol/L (137-145)
--- NOTE | 2023-01-29 07:30 | PM.IMPN ---
Progress Note: A&P Assessment and Plan (1) Distal radius fracture, left: Qualifiers: Encounter type: initial encounter Fracture morphology: other intra-articular Fracture type: closed Qualified Code(s): S52.572A - Other intraarticular fracture of lower end of left radius, initial encounter for closed fracture Code(s): S52.502A - Unspecified fracture of the lower end of left radius, initial encounter for closed fracture Status: Acute Assessment and Plan: Wrist xray LT communicated intra-articular, mild displaced, and dorsally angulated distal left radial fracture, distal left ulnar fracture with mild dorsal angulation Currently patient is not able to use his walker due to distal radius fracture Orthopedic consult Patient most likely would benefit from placement Pain control Closed reduction was done in ED PT/OT when appropiate (2) Anticoagulated by anticoagulation treatment: Code(s): Z79.01 - termite treater helper (current) use of anticoagulants Status: Acute Assessment and Plan: History of PE will hold Eliquis today start Lovenox Resume Eliquis if no plan for surgical intervention Takes for PE (3) Chronic diastolic heart failure: Code(s): I50.32 - Chronic diastolic (congestive) heart failure Status: Acute Assessment and Plan: Monitor closely avoid volume overload Chronic diastolic heart failure not in acute exacerbation Trend daily weights Cardiac diet Trend urine output (4) Frequent falls: Code(s): R29.6 - Repeated falls Status: Acute Assessment and Plan: Multifactorial most likely related to deconditioning multiple comorbidities that patient has as above PT OT eval Patient uses a cane at home for ambulation May benefit from placement (5) Leukocytosis: Code(s): D72.829 - Elevated white blood cell count, unspecified Status: Acute Assessment and Plan: Most likely related to myelofibrosis follow-up with Heme-Onc as outpatient Most likely chronic appears to trend 13-30 Continue to trend WBC currently at 18.2 (6) Hemiplegia: Code(s): G81.90 - Hemiplegia, unspecified affecting unspecified side Status: Acute Assessment and Plan: Secondary to chronic CVA Resume home medication (7) Type 2 diabetes mellitus with hyperglycemia, with long-term current use of insulin: Code(s): E11.65 - Type 2 diabetes mellitus with hyperglycemia; Z79.4 - group home (current) use of insulin Status: Acute Assessment and Plan: Glucose 205 A1c 01/11/23 7.2 Insulin sliding scale Trend glucose hypoglycemia protocol accu hernan (8) COPD (chronic obstructive pulmonary disease): Code(s): J44.9 - Chronic obstructive pulmonary disease, unspecified Status: Acute Assessment and Plan: Stable continue home medication chronic No supplemental oxygen indicated continue to trend resp status Plan Electrolytes slightly out of balance. Replace mag Time Spent With Patient Time: 51 minutes Time with patient: Greater than 35 minutes Subjective Date/time seen: 01/29/23729 Interval history: 01/29/23729 Patient is in bed. He stated that he is still having quite a bit of pain. He is also very weak, and stated that he is unable to care for himself at home. He is requiring more help than baseline. At baseline he walks with a cane. Currently he does cook and can get around with minimal assistance. He currently denies any chest pain, shortness of breath, diarrhea, or constipation. He does state that he is having pain. 01/28/23 1245 Patient was lying in bed. He did have his arm wrapped. He stated he was in pain all over and it was a 20/10. Currently he is denying any chest pain or shortness of breath. He is also denying any
--- NOTE | 2023-01-29 07:30 | P.PNIM_ITS ---
Progress Note: A&P Assessment and Plan (1) Distal radius fracture, left: Qualifiers: Encounter type: initial encounter Fracture morphology: other intra- articular Fracture type: closed Qualified Code(s): S52.572A - Other intraarticular fracture of lower end of left radius, initial encounter for closed fracture Code(s): S52.502A - Unspecified fracture of the lower end of left radius, initial encounter for closed fracture Status: Acute Assessment and Plan: * Wrist xray LT communicated intra-articular, mild displaced, and dorsally angulated distal left radial fracture, distal left ulnar fracture with mild dorsal angulation * Currently patient is not able to use his walker due to distal radius fracture * Orthopedic consult * Patient most likely would benefit from placement * Pain control * Closed reduction was done in ED * PT/OT when appropiate (2) Anticoagulated by anticoagulation treatment: Code(s): Z79.01 - intermediate (current) use of anticoagulants Status: Acute Assessment and Plan: * History of PE will hold Eliquis today start Lovenox * Resume Eliquis if no plan for surgical intervention * Takes for PE (3) Chronic diastolic heart failure: Code(s): I50.32 - Chronic diastolic (congestive) heart failure Status: Acute Assessment and Plan: * Monitor closely avoid volume overload * Chronic diastolic heart failure not in acute exacerbation * Trend daily weights * Cardiac diet * Trend urine output (4) Frequent falls: Code(s): R29.6 - Repeated falls Status: Acute Assessment and Plan: * Multifactorial most likely related to deconditioning multiple comorbidities that patient has as above * PT OT eval * Patient uses a cane at home for ambulation * May benefit from placement (5) Leukocytosis: Code(s): D72.829 - Elevated white blood cell count, unspecified Status: Acute Assessment and Plan: * Most likely related to myelofibrosis follow-up with Heme-Onc as outpatient * Most likely chronic appears to trend 13-30 * Continue to trend * WBC currently at 18.2 (6) Hemiplegia: Code(s): G81.90 - Hemiplegia, unspecified affecting unspecified side Status: Acute Assessment and Plan: * Secondary to chronic CVA * Resume home medication (7) Type 2 diabetes mellitus with hyperglycemia, with long-term current use of insulin: Code(s): E11.65 - Type 2 diabetes mellitus with hyperglycemia; Z79.4 - intermediate (current) use of insulin Status: Acute Assessment and Plan: * Glucose 205 * A1c 01/11/23 7.2 * Insulin sliding scale * Trend glucose * hypoglycemia protocol * accu cheks (8) COPD (chronic obstructive pulmonary disease): Code(s): J44.9 - Chronic obstructive pulmonary disease, unspecified Status: Acute Assessment and Plan: * Stable continue home medication * chronic * No supplemental oxygen indicated * continue to trend resp status Plan Electrolytes slightly out of balance. Replace mag Time Spent With Patient Time: 51 minutes Time with patient: Greater than 35 minutes Subjective Date/time seen:
[2023-01-29 07:39] LABS: Glucose Point of Care 195 mg/dl (65-105)
[2023-01-29] MEDS: HYDROcodone/acetaminophen (*CRX) 5-325 MG TABLET 1 TAB PO ×2 (08:14→14:58)
[2023-01-29] MEDS: FUROSEMIDE 40 MG TABLET PO ×2 (08:14→16:59)
[2023-01-29] MEDS: FAMOTIDINE 20 MG TABLET PO ×2 (08:14→21:03)
[2023-01-29] MEDS: MAGNESIUM OXIDE 400 MG TABLET PO ×2 (08:14→16:59)
[2023-01-29] MEDS: APIXABAN 5 MG TABLET PO ×2 (08:14→21:03)
[2023-01-29] MEDS: VENLAFAXINE HCL 37.5 MG TABLET PO ×2 (08:14→16:59)
[2023-01-29] MEDS: guaiFENesin 12 HR 600 MG TABCR PO ×2 (08:14→21:03)
[2023-01-29] MEDS: METOPROLOL SUCCINATE EXT REL 25 MG TABCR PO ×2 (08:16→21:04)
[2023-01-29] MEDS: PREGABALIN (*CRX) 50 MG CAPSULE 100 MG PO ×2 (08:17→21:03)
[2023-01-29] MEDS: polyethylene glycoL 3350 17 GM POWD.PACK PO (08:17)
[2023-01-29] MEDS: PRAVASTATIN SODIUM 20 MG TABLET 40 MG PO (08:17)
[2023-01-29] MEDS: TOLNAFTATE 1% POWDER 45 GM BTL 1 APPLIC TOPICAL ×2 (08:18→21:04)
[2023-01-29] MEDS: MICONAZOLE NITRATE 2% CREAM 30 GM TUBE 1 APPLIC TOPICAL ×2 (08:18→21:05)
[2023-01-29] MEDS: ONDANSETRON INJ 4 MG/2 ML VIAL IV PUSH (08:29)
[2023-01-29] MEDS: FLUTICASONE/SALMETEROL 115-21 MCG INHALER 1 PUFF 2 PUFF INHALATION (09:03)
[2023-01-29] MEDS: MAGNESIUM SULF 4 GM/WATER100ML 4 GM/100 ML BAG IVPB (11:02)
[2023-01-29 12:01] LABS: Glucose Point of Care 238 mg/dl (65-105)
[2023-01-29] MEDS: INSULIN ASPART (*BKC) 100 UNITS/ML SUB-Q ×2 (12:02→16:59)
[2023-01-29] MEDS: CYCLOBENZAPRINE HCL 10 MG TABLET PO (14:58)
[2023-01-29 17:31] LABS: Glucose Point of Care 299 mg/dl (65-105)
[2023-01-29] MEDS: MONTELUKAST SODIUM 10 MG TABLET PO (21:03)
[2023-01-29] MEDS: diazePAM (*CRX) 2 MG TABLET PO (21:03)
[2023-01-29] MEDS: FENOFIBRATE 160 MG TABLET PO (21:03)
[2023-01-29] MEDS: ZOLPIDEM TARTRATE (*CRX) 5 MG TABLET 10 MG PO (21:03)
[2023-01-29] MEDS: MELATONIN 3 MG TABLET PO (21:05)
[2023-01-30] VITALS (12 sets, daily range): BP systolic 114–129; BP diastolic 45–65; PULSE 78–95; RESP 14–20; TEMP 35.9–37.2; O2SAT 97–100
[2023-01-30] MEDS: HYDROcodone/acetaminophen (*CRX) 5-325 MG TABLET 1 TAB PO ×3 (01:09→17:13)
[2023-01-30 06:50] LABS: Basophils Absolute Auto 0.1 K/mm3 (0.0-0.1); Basophils Percent Auto 0.7 % (0.2-1.2); Eosinophils Percent Auto 6.1 % (0-4.4); Hematocrit 32.5 % (42.0-52.0); Immature Granulocyte Absolute 0.09 K/mm3 (0.00-0.031); Immature Granulocyte Percent A 0.6 % (0-0.5); Lymphocytes Absolute Auto 2.83 K/mm3 (0.9-3.2); Lymphocytes Percent Auto 18.1 % (18.3-44.2); Mean Corpuscular HGB Conc 33.8 g/dl (32-36); Mean Corpuscular Hemoglobin 30.7 pg (26-34); Mean Corpuscular Volume 90.8 fl (80-100); Monocytes Absolute Auto 1.3 K/mm3 (0.1-0.6); Monocytes Percent Auto 8.6 % (2.6-8.5); Neutrophils Absolute Auto 10.3 K/mm3 (1.3-6.7); Neutrophils Percent Auto 65.9 % (45.5-73.1); Platelet Count Result 615 k/mm3 (150-375); Red Blood Count 3.58 M/mm3 (4.6-6.20); Red Cell Distribution Width 13.7 % (11.5-14.5); White Blood Count 15.7 K/mm3 (4.5-10.0)
[2023-01-30 07:11] LABS: Alanine Aminotransferase 17 U/L (6-50); Albumin Level 3.7 g/dL (3.5-5.1); Alkaline Phosphatase 96 U/L (38-126); Anion Gap 3 mmol/L (8-16); Aspartate Amino Transferase 25 U/L (17-59); Bilirubin,Total 0.6 mg/dL (0.2-1.3); Blood Urea Nitrogen 22 mg/dL (9-20); Calcium 8.6 mg/dL (8.4-10.2); Carbon Dioxide 31 mmol/L (22-30); Chloride 98 mmol/L (98-107); Estimated CRCL calculation 63 ml/min; Estimated Glomerular Filt Rate > 60; Glucose 213 mg/dL (65-110); Potassium 4.1 mmol/L (3.4-5.0); Sodium 132 mmol/L (137-145)
[2023-01-30 07:30] LABS: Glucose Point of Care 194 mg/dl (65-105)
[2023-01-30 07:43] LABS: Burr Cells 1+ (NORMAL); Platelet Estimate Increased (Adequate); Schistocytes None Seen (NORMAL)
[2023-01-30] MEDS: FLUTICASONE/SALMETEROL 115-21 MCG INHALER 1 PUFF 2 PUFF INHALATION ×2 (08:09→20:57)
[2023-01-30] MEDS: APIXABAN 5 MG TABLET PO ×2 (08:28→20:48)
[2023-01-30] MEDS: SENNA/DOCUSATE SODIUM TABLET 2 TAB PO (08:28)
[2023-01-30] MEDS: VENLAFAXINE HCL 37.5 MG TABLET PO ×2 (08:28→17:10)
[2023-01-30] MEDS: METOPROLOL SUCCINATE EXT REL 25 MG TABCR PO ×2 (08:28→20:48)
[2023-01-30] MEDS: guaiFENesin 12 HR 600 MG TABCR PO ×2 (08:28→20:48)
[2023-01-30] MEDS: FAMOTIDINE 20 MG TABLET PO ×2 (08:29→20:48)
[2023-01-30] MEDS: PRAVASTATIN SODIUM 20 MG TABLET 40 MG PO (08:29)
[2023-01-30] MEDS: MAGNESIUM OXIDE 400 MG TABLET PO ×2 (08:29→17:10)
[2023-01-30] MEDS: TOLNAFTATE 1% POWDER 45 GM BTL 1 APPLIC TOPICAL ×2 (08:29→20:51)
[2023-01-30] MEDS: FUROSEMIDE 40 MG TABLET PO ×2 (08:29→17:10)
[2023-01-30] MEDS: MICONAZOLE NITRATE 2% CREAM 30 GM TUBE 1 APPLIC TOPICAL ×2 (08:31→21:00)
[2023-01-30] MEDS: PREGABALIN (*CRX) 50 MG CAPSULE 100 MG PO ×2 (08:35→20:51)
--- NOTE | 2023-01-30 09:45 | P.PNIM_ITS ---
Progress Note: A&P Assessment and Plan (1) Distal radius fracture, left: Qualifiers: Encounter type: initial encounter Fracture morphology: other intra- articular Fracture type: closed Qualified Code(s): S52.572A - Other intraarticular fracture of lower end of left radius, initial encounter for closed fracture Code(s): S52.502A - Unspecified fracture of the lower end of left radius, initial encounter for closed fracture Status: Acute Assessment and Plan: * Wrist xray LT communicated intra-articular, mild displaced, and dorsally angulated distal left radial fracture, distal left ulnar fracture with mild dorsal angulation * Currently patient is not able to use his walker due to distal radius fracture * Orthopedic consult * Patient most likely would benefit from placement * Pain control * Closed reduction was done in ED * PT/OT ordered (2) Anticoagulated by anticoagulation treatment: Code(s): Z79.01 - terminal operations supervisor (current) use of anticoagulants Status: Acute Assessment and Plan: * History of PE will hold Eliquis today start Lovenox * Resume Eliquis if no plan for surgical intervention * Takes for PE (3) Chronic diastolic heart failure: Code(s): I50.32 - Chronic diastolic (congestive) heart failure Status: Acute Assessment and Plan: * Monitor closely avoid volume overload * Chronic diastolic heart failure not in acute exacerbation * Trend daily weights * Cardiac diet * Trend urine output (4) Frequent falls: Code(s): R29.6 - Repeated falls Status: Acute Assessment and Plan: * Multifactorial most likely related to deconditioning multiple comorbidities that patient has as above * PT OT eval * Patient uses a cane at home for ambulation * May benefit from placement (5) Leukocytosis: Code(s): D72.829 - Elevated white blood cell count, unspecified Status: Acute Assessment and Plan: * Most likely related to myelofibrosis follow-up with Heme-Onc as outpatient * Most likely chronic appears to trend 13-30 * Continue to trend * WBC currently at 15.7 (6) Hemiplegia: Code(s): G81.90 - Hemiplegia, unspecified affecting unspecified side Status: Acute Assessment and Plan: * Secondary to chronic CVA * Resume home medication (7) Type 2 diabetes mellitus with hyperglycemia, with long-term current use of insulin: Code(s): E11.65 - Type 2 diabetes mellitus with hyperglycemia; Z79.4 - terminal operations supervisor (current) use of insulin Status: Acute Assessment and Plan: * Glucose 213 * A1c 01/11/23 7.2 * Insulin sliding scale * Trend glucose * hypoglycemia protocol * accu cheks (8) COPD (chronic obstructive pulmonary disease): Code(s): J44.9 - Chronic obstructive pulmonary disease, unspecified Status: Acute Assessment and Plan: * Stable continue home medication * chronic * No supplemental oxygen indicated * continue to trend resp status (9) Pneumonia: Code(s): J18.9 - Pneumonia, unspecified organism Status: Acute Assessment and Plan: * Complaints of a cough with thick yellow mucus * chest x-ray shows bibasilar opac
--- NOTE | 2023-01-30 09:45 | PM.IMPN ---
Progress Note: A&P Assessment and Plan (1) Distal radius fracture, left: Qualifiers: Encounter type: initial encounter Fracture morphology: other intra-articular Fracture type: closed Qualified Code(s): S52.572A - Other intraarticular fracture of lower end of left radius, initial encounter for closed fracture Code(s): S52.502A - Unspecified fracture of the lower end of left radius, initial encounter for closed fracture Status: Acute Assessment and Plan: Wrist xray LT communicated intra-articular, mild displaced, and dorsally angulated distal left radial fracture, distal left ulnar fracture with mild dorsal angulation Currently patient is not able to use his walker due to distal radius fracture Orthopedic consult Patient most likely would benefit from placement Pain control Closed reduction was done in ED PT/OT ordered (2) Anticoagulated by anticoagulation treatment: Code(s): Z79.01 - terminal operator (current) use of anticoagulants Status: Acute Assessment and Plan: History of PE will hold Eliquis today start Lovenox Resume Eliquis if no plan for surgical intervention Takes for PE (3) Chronic diastolic heart failure: Code(s): I50.32 - Chronic diastolic (congestive) heart failure Status: Acute Assessment and Plan: Monitor closely avoid volume overload Chronic diastolic heart failure not in acute exacerbation Trend daily weights Cardiac diet Trend urine output (4) Frequent falls: Code(s): R29.6 - Repeated falls Status: Acute Assessment and Plan: Multifactorial most likely related to deconditioning multiple comorbidities that patient has as above PT OT eval Patient uses a cane at home for ambulation May benefit from placement (5) Leukocytosis: Code(s): D72.829 - Elevated white blood cell count, unspecified Status: Acute Assessment and Plan: Most likely related to myelofibrosis follow-up with Heme-Onc as outpatient Most likely chronic appears to trend 13-30 Continue to trend WBC currently at 15.7 (6) Hemiplegia: Code(s): G81.90 - Hemiplegia, unspecified affecting unspecified side Status: Acute Assessment and Plan: Secondary to chronic CVA Resume home medication (7) Type 2 diabetes mellitus with hyperglycemia, with long-term current use of insulin: Code(s): E11.65 - Type 2 diabetes mellitus with hyperglycemia; Z79.4 - terminal operator (current) use of insulin Status: Acute Assessment and Plan: Glucose 213 A1c 01/11/23 7.2 Insulin sliding scale Trend glucose hypoglycemia protocol accu cheks (8) COPD (chronic obstructive pulmonary disease): Code(s): J44.9 - Chronic obstructive pulmonary disease, unspecified Status: Acute Assessment and Plan: Stable continue home medication chronic No supplemental oxygen indicated continue to trend resp status (9) Pneumonia: Code(s): J18.9 - Pneumonia, unspecified organism Status: Acute Assessment and Plan: Complaints of a cough with thick yellow mucus chest x-ray shows bibasilar opacities consistent with pneumonia versus atelectasis start azithromycin and Augmentin IS and pep therapy sputum culture ordered WBCs elevated will trend CRP as WBCs are always elevated. Plan Electrolytes slightly out of balance. Replace mag Subjective Date/time seen: 01/30/23944 Interval history: 01/30/23944 Patient was sitting in the chair. Patient is having issues with coughing and stated that it is a lot of coughing with yellow thick mucus coming up. He denies any current chest pain or shortness of breath. I did ask him to move his fingers on the left hand however he stated that he did want to as he has not been able to
[2023-01-30 11:28] LABS: Glucose Point of Care 415 mg/dl (65-105)
[2023-01-30] MEDS: INSULIN ASPART (*BKC) 100 UNITS/ML SUB-Q (11:44)
[2023-01-30] MEDS: INSULIN ASPART (*BKC) 100 UNITS/ML 10 UNITS SUB-Q (11:44)
[2023-01-30] MEDS: AMOXICILLIN/CLAVULANATE K 875-125 MG TAB 1 TABLET PO ×2 (14:09→20:52)
[2023-01-30] MEDS: MORPHINE SULFATE (*CRX) 2 MG/ML INJ IV PUSH ×2 (14:09→20:45)
[2023-01-30 15:22] LABS: Glucose Point of Care 231 mg/dl (65-105)
[2023-01-30 16:43] LABS: Glucose Point of Care 142 mg/dl (65-105)
[2023-01-30 20:09] LABS: Glucose Point of Care 234 mg/dl (65-105)
[2023-01-30] MEDS: ZOLPIDEM TARTRATE (*CRX) 5 MG TABLET 10 MG PO (20:44)
[2023-01-30] MEDS: diazePAM (*CRX) 2 MG TABLET PO (20:44)
[2023-01-30] MEDS: MELATONIN 3 MG TABLET PO (20:45)
[2023-01-30] MEDS: MONTELUKAST SODIUM 10 MG TABLET PO (20:48)
[2023-01-30] MEDS: FENOFIBRATE 160 MG TABLET PO (20:48)
[2023-01-31] VITALS (13 sets, daily range): BP systolic 123–137; BP diastolic 61–69; PULSE 81–92; RESP 20; TEMP 35.7–36.8; O2SAT 96–100
[2023-01-31] MEDS: HYDROcodone/acetaminophen (*CRX) 5-325 MG TABLET 1 TAB PO ×3 (04:29→21:28)
[2023-01-31 07:03] LABS: Basophils Absolute Auto 0.2 K/mm3 (0.0-0.1); Basophils Percent Auto 0.9 % (0.2-1.2); Eosinophils Percent Auto 5.6 % (0-4.4); Hematocrit 34.3 % (42.0-52.0); Hemoglobin 11.5 g/dL (14.0-18.0); Immature Granulocyte Absolute 0.16 K/mm3 (0.00-0.031); Immature Granulocyte Percent A 0.9 % (0-0.5); Lymphocytes Absolute Auto 2.77 K/mm3 (0.9-3.2); Lymphocytes Percent Auto 16.1 % (18.3-44.2); Mean Corpuscular HGB Conc 33.5 g/dl (32-36); Mean Corpuscular Hemoglobin 30.7 pg (26-34); Mean Corpuscular Volume 91.7 fl (80-100); Mean Platelet Volume 11.2 fl (7.4-10.4); Monocytes Absolute Auto 1.2 K/mm3 (0.1-0.6); Monocytes Percent Auto 7.2 % (2.6-8.5); Neutrophils Absolute Auto 11.9 K/mm3 (1.3-6.7); Neutrophils Percent Auto 69.3 % (45.5-73.1); Platelet Count Result 611 k/mm3 (150-375); Red Blood Count 3.74 M/mm3 (4.6-6.20); Red Cell Distribution Width 13.9 % (11.5-14.5); White Blood Count 17.2 K/mm3 (4.5-10.0)
[2023-01-31 07:26] LABS: Alanine Aminotransferase 20 U/L (6-50); Albumin Level 3.8 g/dL (3.5-5.1); Alkaline Phosphatase 121 U/L (38-126); Anion Gap 6 mmol/L (8-16); Aspartate Amino Transferase 25 U/L (17-59); Bilirubin,Total 0.5 mg/dL (0.2-1.3); Blood Urea Nitrogen 29 mg/dL (9-20); CRP 6.2 mg/dL (<1.0); Calcium 8.9 mg/dL (8.4-10.2); Carbon Dioxide 32 mmol/L (22-30); Chloride 97 mmol/L (98-107); Estimated CRCL calculation 59 ml/min; Estimated Glomerular Filt Rate 56; Glucose 270 mg/dL (65-110); Magnesium 1.6 mg/dL (1.6-2.3); Sodium 135 mmol/L (137-145)
[2023-01-31 07:30] LABS: Glucose Point of Care 262 mg/dl (65-105)
[2023-01-31] MEDS: TOLNAFTATE 1% POWDER 45 GM BTL 1 APPLIC TOPICAL ×2 (08:07→21:22)
[2023-01-31] MEDS: MAGNESIUM OXIDE 400 MG TABLET PO ×2 (08:08→16:55)
[2023-01-31] MEDS: AMOXICILLIN/CLAVULANATE K 875-125 MG TAB 1 TABLET PO ×2 (08:08→21:20)
[2023-01-31] MEDS: FUROSEMIDE 40 MG TABLET PO ×2 (08:08→16:55)
[2023-01-31] MEDS: MICONAZOLE NITRATE 2% CREAM 30 GM TUBE 1 APPLIC TOPICAL ×2 (08:08→21:23)
[2023-01-31] MEDS: PRAVASTATIN SODIUM 20 MG TABLET 40 MG PO (08:08)
[2023-01-31] MEDS: VENLAFAXINE HCL 37.5 MG TABLET PO ×2 (08:08→16:55)
[2023-01-31] MEDS: guaiFENesin 12 HR 600 MG TABCR PO ×2 (08:08→21:20)
[2023-01-31] MEDS: APIXABAN 5 MG TABLET PO ×2 (08:08→21:20)
[2023-01-31] MEDS: METOPROLOL SUCCINATE EXT REL 25 MG TABCR PO ×2 (08:08→21:21)
[2023-01-31] MEDS: FAMOTIDINE 20 MG TABLET PO ×2 (08:08→21:20)
[2023-01-31] MEDS: SENNA/DOCUSATE SODIUM TABLET 2 TAB PO (08:08)
[2023-01-31] MEDS: INSULIN ASPART (*BKC) 100 UNITS/ML SUB-Q ×3 (08:11→16:54)
[2023-01-31] MEDS: MORPHINE SULFATE (*CRX) 2 MG/ML INJ IV PUSH ×2 (08:12→15:45)
[2023-01-31] MEDS: PREGABALIN (*CRX) 50 MG CAPSULE 100 MG PO ×2 (08:13→21:20)
[2023-01-31] MEDS: MAGNESIUM SULF 4 GM/WATER100ML 4 GM/100 ML BAG IVPB (08:24)
[2023-01-31] MEDS: FLUTICASONE/SALMETEROL 115-21 MCG INHALER 1 PUFF 2 PUFF INHALATION (09:37)
--- NOTE | 2023-01-31 09:45 | PM.IMPN ---
Progress Note: A&P Assessment and Plan (1) Distal radius fracture, left: Qualifiers: Encounter type: initial encounter Fracture morphology: other intra-articular Fracture type: closed Qualified Code(s): S52.572A - Other intraarticular fracture of lower end of left radius, initial encounter for closed fracture Code(s): S52.502A - Unspecified fracture of the lower end of left radius, initial encounter for closed fracture Status: Acute Assessment and Plan: Wrist xray LT communicated intra-articular, mild displaced, and dorsally angulated distal left radial fracture, distal left ulnar fracture with mild dorsal angulation Currently patient is not able to use his cane due to distal radius fracture Orthopedic consult thank you for your help Patient most likely would benefit from placement for rehab Pain control Closed reduction was done in ED PT/OT ordered (2) Pneumonia: Code(s): J18.9 - Pneumonia, unspecified organism Status: Acute Assessment and Plan: Complaints of a cough with thick yellow mucus chest x-ray shows bibasilar opacities consistent with pneumonia versus atelectasis Continue with azithromycin and Augmentin IS and pep therapy sputum culture ordered WBCs elevated will trend CRP as WBCs are always elevated. CRP currently at 6.2 (3) COPD (chronic obstructive pulmonary disease): Code(s): J44.9 - Chronic obstructive pulmonary disease, unspecified Status: Acute Assessment and Plan: Stable continue home medication chronic No supplemental oxygen indicated continue to trend resp status (4) Anticoagulated by anticoagulation treatment: Code(s): Z79.01 - terminal makeup operator (current) use of anticoagulants Status: Acute Assessment and Plan: History of PE Restart and continue Eliquis Stable at this time (5) Chronic diastolic heart failure: Code(s): I50.32 - Chronic diastolic (congestive) heart failure Status: Acute Assessment and Plan: Monitor closely avoid volume overload Chronic diastolic heart failure not in acute exacerbation Trend daily weights Cardiac diet Trend urine output (6) Frequent falls: Code(s): R29.6 - Repeated falls Status: Acute Assessment and Plan: Multifactorial most likely related to deconditioning multiple comorbidities that patient has as above PT OT eval Patient uses a cane at home for ambulation May benefit from rehab for strengthen and endurance (7) Leukocytosis: Code(s): D72.829 - Elevated white blood cell count, unspecified Status: Acute Assessment and Plan: Most likely related to myelofibrosis follow-up with Heme-Onc as outpatient Most likely chronic appears to trend 13-30 since 2019 Continue to trend WBC currently at 17.2 (8) Hemiplegia: Code(s): G81.90 - Hemiplegia, unspecified affecting unspecified side Status: Acute Assessment and Plan: Secondary to chronic CVA Resume home medication (9) Type 2 diabetes mellitus with hyperglycemia, with long-term current use of insulin: Code(s): E11.65 - Type 2 diabetes mellitus with hyperglycemia; Z79.4 - terminal makeup operator (current) use of insulin Status: Acute Assessment and Plan: Glucose 270 A1c 01/11/23 7.2 Insulin sliding scale, continue as ordered 24 hour insulin roll in the am Trend glucose hypoglycemia protocol Accu Cheks AC/HS Plan Electrolytes slightly out of balance. Replace mag again as he is 1.6 Time Spent With Patient Time: 48 minutes Time with patient: Greater than 35 minutes Subjective Date/time seen: 01/31/23 09:45 Interval history: 01/31/23944 Patient was in the chair trying to get the bed. He stating that he is having a lot of pain still in his le
--- NOTE | 2023-01-31 09:45 | P.PNIM_ITS ---
Progress Note: A&P Assessment and Plan (1) Distal radius fracture, left: Qualifiers: Encounter type: initial encounter Fracture morphology: other intra- articular Fracture type: closed Qualified Code(s): S52.572A - Other intraarticular fracture of lower end of left radius, initial encounter for closed fracture Code(s): S52.502A - Unspecified fracture of the lower end of left radius, initial encounter for closed fracture Status: Acute Assessment and Plan: * Wrist xray LT communicated intra-articular, mild displaced, and dorsally angulated distal left radial fracture, distal left ulnar fracture with mild dorsal angulation * Currently patient is not able to use his cane due to distal radius fracture * Orthopedic consult thank you for your help * Patient most likely would benefit from placement for rehab * Pain control * Closed reduction was done in ED * PT/OT ordered (2) Pneumonia: Code(s): J18.9 - Pneumonia, unspecified organism Status: Acute Assessment and Plan: * Complaints of a cough with thick yellow mucus * chest x-ray shows bibasilar opacities consistent with pneumonia versus atelectasis * Continue with azithromycin and Augmentin * IS and pep therapy * sputum culture ordered * WBCs elevated will trend CRP as WBCs are always elevated. * CRP currently at 6.2 (3) COPD (chronic obstructive pulmonary disease): Code(s): J44.9 - Chronic obstructive pulmonary disease, unspecified Status: Acute Assessment and Plan: * Stable continue home medication * chronic * No supplemental oxygen indicated * continue to trend resp status (4) Anticoagulated by anticoagulation treatment: Code(s): Z79.01 - termite renewal inspector (current) use of anticoagulants Status: Acute Assessment and Plan: * History of PE * Restart and continue Eliquis * Stable at this time (5) Chronic diastolic heart failure: Code(s): I50.32 - Chronic diastolic (congestive) heart failure Status: Acute Assessment and Plan: * Monitor closely avoid volume overload * Chronic diastolic heart failure not in acute exacerbation * Trend daily weights * Cardiac diet * Trend urine output (6) Frequent falls: Code(s): R29.6 - Repeated falls Status: Acute Assessment and Plan: * Multifactorial most likely related to deconditioning multiple comorbidities that patient has as above * PT OT eval * Patient uses a cane at home for ambulation * May benefit from rehab for strengthen and endurance (7) Leukocytosis: Code(s): D72.829 - Elevated white blood cell count, unspecified Status: Acute Assessment and Plan: * Most likely related to myelofibrosis follow-up with Heme-Onc as outpatient * Most likely chronic appears to trend 13-30 since 2019 * Continue to trend * WBC currently at 17.2 (8) Hemiplegia: Code(s): G81.90 - Hemiplegia, unspecified affecting unspecified side Status: Acute Assessment and Plan: * Secondary to chronic CVA * Resume home medication (9) Type 2 diabetes mellitus with hyperglycemia, with long-term current use of insulin: Code(s): E11.65 - Type 2 diabetes
[2023-01-31] MEDS: ONDANSETRON INJ 4 MG/2 ML VIAL IV PUSH (09:48)
[2023-01-31 11:26] LABS: Glucose Point of Care 253 mg/dl (65-105)
[2023-01-31 16:23] LABS: Glucose Point of Care 230 mg/dl (65-105)
[2023-01-31] MEDS: SALINE 0.65% NAS SOLN 44 ML BTL 1 SPRAY NASAL (16:55)
[2023-01-31] MEDS: MONTELUKAST SODIUM 10 MG TABLET PO (21:20)
[2023-01-31] MEDS: FENOFIBRATE 160 MG TABLET PO (21:21)
[2023-01-31] MEDS: ZOLPIDEM TARTRATE (*CRX) 5 MG TABLET 10 MG PO (21:28)
[2023-01-31 21:57] LABS: Glucose Point of Care 266 mg/dl (65-105)
[2023-02-01] VITALS (7 sets, daily range): BP systolic 119; BP diastolic 51; PULSE 68–92; RESP 16; TEMP 36.1; O2SAT 95–97
[2023-02-01] MEDS: MORPHINE SULFATE (*CRX) 2 MG/ML INJ IV PUSH (05:05)
[2023-02-01] MEDS: CYCLOBENZAPRINE HCL 10 MG TABLET PO (05:05)
[2023-02-01 06:29] LABS: Basophils Absolute Auto 0.1 K/mm3 (0.0-0.1); Basophils Percent Auto 0.8 % (0.2-1.2); Eosinophils Absolute Auto 0.9 K/mm3 (0-0.3); Eosinophils Percent Auto 5.4 % (0-4.4); Hematocrit 33.8 % (42.0-52.0); Hemoglobin 11.4 g/dL (14.0-18.0); Immature Granulocyte Percent A 0.6 % (0-0.5); Lymphocytes Absolute Auto 2.74 K/mm3 (0.9-3.2); Lymphocytes Percent Auto 16.4 % (18.3-44.2); Mean Corpuscular HGB Conc 33.7 g/dl (32-36); Mean Corpuscular Hemoglobin 31.2 pg (26-34); Mean Corpuscular Volume 92.6 fl (80-100); Mean Platelet Volume 11.3 fl (7.4-10.4); Monocytes Absolute Auto 1.2 K/mm3 (0.1-0.6); Monocytes Percent Auto 7.3 % (2.6-8.5); Neutrophils Absolute Auto 11.6 K/mm3 (1.3-6.7); Neutrophils Percent Auto 69.5 % (45.5-73.1); Platelet Count Result 604 k/mm3 (150-375); Red Blood Count 3.65 M/mm3 (4.6-6.20); Red Cell Distribution Width 13.7 % (11.5-14.5); White Blood Count 16.7 K/mm3 (4.5-10.0)
[2023-02-01 06:42] LABS: Alanine Aminotransferase 18 U/L (6-50); Albumin Level 3.8 g/dL (3.5-5.1); Alkaline Phosphatase 116 U/L (38-126); Anion Gap 7 mmol/L (8-16); Aspartate Amino Transferase 23 U/L (17-59); Bilirubin,Total 0.5 mg/dL (0.2-1.3); Blood Urea Nitrogen 30 mg/dL (9-20); CRP 5.3 mg/dL (<1.0); Calcium 8.9 mg/dL (8.4-10.2); Carbon Dioxide 31 mmol/L (22-30); Chloride 96 mmol/L (98-107); Estimated CRCL calculation 59 ml/min; Estimated Glomerular Filt Rate 56; Glucose 277 mg/dL (65-110); Magnesium 1.7 mg/dL (1.6-2.3); Potassium 4.2 mmol/L (3.4-5.0); Sodium 134 mmol/L (137-145)
[2023-02-01 08:25] LABS: Glucose Point of Care 248 mg/dl (65-105)
[2023-02-01] MEDS: FLUTICASONE/SALMETEROL 115-21 MCG INHALER 1 PUFF 2 PUFF INHALATION (09:20)
[2023-02-01] MEDS: METOPROLOL SUCCINATE EXT REL 25 MG TABCR PO (10:25)
[2023-02-01] MEDS: VENLAFAXINE HCL 37.5 MG TABLET PO (10:25)
[2023-02-01] MEDS: FUROSEMIDE 40 MG TABLET PO (10:25)
[2023-02-01] MEDS: AMOXICILLIN/CLAVULANATE K 875-125 MG TAB 1 TABLET PO (10:25)
[2023-02-01] MEDS: SENNA/DOCUSATE SODIUM TABLET 2 TAB PO (10:26)
[2023-02-01] MEDS: APIXABAN 5 MG TABLET PO (10:26)
[2023-02-01] MEDS: FAMOTIDINE 20 MG TABLET PO (10:26)
[2023-02-01] MEDS: MAGNESIUM OXIDE 400 MG TABLET PO (10:26)
[2023-02-01] MEDS: guaiFENesin 12 HR 600 MG TABCR PO (10:26)
[2023-02-01] MEDS: PRAVASTATIN SODIUM 20 MG TABLET 40 MG PO (10:26)
[2023-02-01] MEDS: PREGABALIN (*CRX) 50 MG CAPSULE 100 MG PO (10:28)
[2023-02-01] MEDS: INSULIN ASPART (*BKC) 100 UNITS/ML SUB-Q ×2 (10:28→12:24)
[2023-02-01] MEDS: HYDROcodone/acetaminophen (*CRX) 5-325 MG TABLET 1 TAB PO (10:32)
[2023-02-01] MEDS: TOLNAFTATE 1% POWDER 45 GM BTL 1 APPLIC TOPICAL (10:34)
[2023-02-01] MEDS: MICONAZOLE NITRATE 2% CREAM 30 GM TUBE 1 APPLIC TOPICAL (10:36)
--- NOTE | 2023-02-01 11:30 | P.DS_ITS ---
DS: Admitting Diagnosis Discharge Date 02/01/23 1130 Admitting Diagnosis Left wrist fracture, PNA DS: Discharge Diagnosis Discharge Diagnosis (1) Distal radius fracture, left: Qualifiers: Encounter type: initial encounter Fracture morphology: other intra- articular Fracture type: closed Qualified Code(s): S52.572A - Other intraarticular fracture of lower end of left radius, initial encounter for closed fracture Code(s): S52.502A - Unspecified fracture of the lower end of left radius, initial encounter for closed fracture Status: Acute Assessment and Plan: * Wrist xray LT communicated intra-articular, mild displaced, and dorsally angulated distal left radial fracture, distal left ulnar fracture with mild dorsal angulation * Currently patient is not able to use his cane due to distal radius fracture * Orthopedic consult thank you for your help * Patient most likely would benefit from placement for rehab * Pain control * Closed reduction was done in ED * PT/OT ordered (2) Pneumonia: Code(s): J18.9 - Pneumonia, unspecified organism Status: Acute Assessment and Plan: * Complaints of a cough with thick yellow mucus * chest x-ray shows bibasilar opacities consistent with pneumonia versus atelectasis * Continue with azithromycin and Augmentin * IS and pep therapy * sputum culture ordered * WBCs elevated will trend CRP as WBCs are always elevated. * CRP currently at 6.2 (3) COPD (chronic obstructive pulmonary disease): Code(s): J44.9 - Chronic obstructive pulmonary disease, unspecified Status: Acute Assessment and Plan: * Stable continue home medication * chronic * No supplemental oxygen indicated * continue to trend resp status (4) Anticoagulated by anticoagulation treatment: Code(s): Z79.01 - ferry terminal agent (current) use of anticoagulants Status: Acute Assessment and Plan: * History of PE * Restart and continue Eliquis * Stable at this time (5) Chronic diastolic heart failure: Code(s): I50.32 - Chronic diastolic (congestive) heart failure Status: Acute Assessment and Plan: * Monitor closely avoid volume overload * Chronic diastolic heart failure not in acute exacerbation * Trend daily weights * Cardiac diet * Trend urine output (6) Frequent falls: Code(s): R29.6 - Repeated falls Status: Acute Assessment and Plan: * Multifactorial most likely related to deconditioning multiple comorbidities that patient has as above * PT OT eval * Patient uses a cane at home for ambulation * May benefit from rehab for strengthen and endurance (7) Leukocytosis: Code(s): D72.829 - Elevated white blood cell count, unspecified Status: Acute Assessment and Plan: * Most likely related to myelofibrosis follow-up with Heme-Onc as outpatient * Most likely chronic appears to trend 13-30 since 2019 * Continue to trend * WBC currently at 17.2 (8) Hemiplegia: Code(s): G81.90 - Hemiplegia, unspecified affecting unspecified side Status: Acute Assessment and Plan: * Secondary to chronic CVA * Resume home medication (9)
--- NOTE | 2023-02-01 11:30 | PM.DS ---
DS: Admitting Diagnosis Discharge Date 02/01/23 1130 Admitting Diagnosis Left wrist fracture, PNA DS: Discharge Diagnosis Discharge Diagnosis (1) Distal radius fracture, left: Qualifiers: Encounter type: initial encounter Fracture morphology: other intra-articular Fracture type: closed Qualified Code(s): S52.572A - Other intraarticular fracture of lower end of left radius, initial encounter for closed fracture Code(s): S52.502A - Unspecified fracture of the lower end of left radius, initial encounter for closed fracture Status: Acute Assessment and Plan: Wrist xray LT communicated intra-articular, mild displaced, and dorsally angulated distal left radial fracture, distal left ulnar fracture with mild dorsal angulation Currently patient is not able to use his cane due to distal radius fracture Orthopedic consult thank you for your help Patient most likely would benefit from placement for rehab Pain control Closed reduction was done in ED PT/OT ordered (2) Pneumonia: Code(s): J18.9 - Pneumonia, unspecified organism Status: Acute Assessment and Plan: Complaints of a cough with thick yellow mucus chest x-ray shows bibasilar opacities consistent with pneumonia versus atelectasis Continue with azithromycin and Augmentin IS and pep therapy sputum culture ordered WBCs elevated will trend CRP as WBCs are always elevated. CRP currently at 6.2 (3) COPD (chronic obstructive pulmonary disease): Code(s): J44.9 - Chronic obstructive pulmonary disease, unspecified Status: Acute Assessment and Plan: Stable continue home medication chronic No supplemental oxygen indicated continue to trend resp status (4) Anticoagulated by anticoagulation treatment: Code(s): Z79.01 - half-way (current) use of anticoagulants Status: Acute Assessment and Plan: History of PE Restart and continue Eliquis Stable at this time (5) Chronic diastolic heart failure: Code(s): I50.32 - Chronic diastolic (congestive) heart failure Status: Acute Assessment and Plan: Monitor closely avoid volume overload Chronic diastolic heart failure not in acute exacerbation Trend daily weights Cardiac diet Trend urine output (6) Frequent falls: Code(s): R29.6 - Repeated falls Status: Acute Assessment and Plan: Multifactorial most likely related to deconditioning multiple comorbidities that patient has as above PT OT eval Patient uses a cane at home for ambulation May benefit from rehab for strengthen and endurance (7) Leukocytosis: Code(s): D72.829 - Elevated white blood cell count, unspecified Status: Acute Assessment and Plan: Most likely related to myelofibrosis follow-up with Heme-Onc as outpatient Most likely chronic appears to trend 13-30 since 2019 Continue to trend WBC currently at 17.2 (8) Hemiplegia: Code(s): G81.90 - Hemiplegia, unspecified affecting unspecified side Status: Acute Assessment and Plan: Secondary to chronic CVA Resume home medication (9) Type 2 diabetes mellitus with hyperglycemia, with long-term current use of insulin: Code(s): E11.65 - Type 2 diabetes mellitus with hyperglycemia; Z79.4 - half-way (current) use of insulin Status: Acute Assessment and Plan: Glucose 270 A1c 01/11/23 7.2 Insulin sliding scale, continue as ordered 24 hour insulin roll in the am Trend glucose hypoglycemia protocol Accu Cheks AC/HS Plan Electrolytes slightly out of balance. Replace mag again as he is 1.6 DS: Summary Hospital Course Hospital Course: Patient is 6-year-old male with a past medical history of diabetes, CHF, PE, chronic hypoxic respiratory failure, myelofibr
[2023-02-01 11:37] LABS: Glucose Point of Care 312 mg/dl (65-105)
[2023-02-01] MEDS: ACETAMINOPHEN 325 MG TABLET 650 MG PO (15:28)
== END 2023-02-01 17:05 | disposition home or self-care (01) | DRG 562 ==
LOC: ANHED 19:57 → ANH3MEDSUR 21:03
PROVIDERS: Admitting Provider Internal Medicine; Emergency Provider Emergency Medicine; PCP Internal Medicine; Visit Provider Nurse Practitioner
DX: S52.502A Unspecified fracture of the lower end of left radius, initial encounter for closed fracture (principal); J18.9 Pneumonia, unspecified organism; J96.10 Chronic respiratory failure, unspecified whether with hypoxia or hypercapnia; I50.32 Chronic diastolic (congestive) heart failure; D75.81 Myelofibrosis; J44.0 Chronic obstructive pulmonary disease with (acute) lower respiratory infection; I69.354 Hemiplegia and hemiparesis following cerebral infarction affecting left non-dominant side; S52.602A Unspecified fracture of lower end of left ulna, initial encounter for closed fracture; W18.39XA Other fall on same level, initial encounter; E11.65 Type 2 diabetes mellitus with hyperglycemia; D64.9 Anemia, unspecified; F41.9 Anxiety disorder, unspecified; N40.0 Benign prostatic hyperplasia without lower urinary tract symptoms; N18.9 Chronic kidney disease, unspecified; G47.33 Obstructive sleep apnea (adult) (pediatric); R29.6 Repeated falls; D72.829 Elevated white blood cell count, unspecified; E11.42 Type 2 diabetes mellitus with diabetic polyneuropathy; J44.9 Chronic obstructive pulmonary disease, unspecified; I73.9 Peripheral vascular disease, unspecified; M54.12 Radiculopathy, cervical region; Z91.199 Patient's noncompliance with other medical treatment and regimen due to unspecified reason; Z86.711 Personal history of pulmonary embolism; Z99.81 Dependence on supplemental oxygen; Z79.01 Long term (current) use of anticoagulants; Z90.49 Acquired absence of other specified parts of digestive tract; Z90.81 Acquired absence of spleen; Z89.412 Acquired absence of left great toe; Z89.411 Acquired absence of right great toe; Z87.891 Personal history of nicotine dependence; Z79.4 Long term (current) use of insulin
CPT/HCPCS: 25600; 36415; 71045; 71046; 73100; 73110; 80053; 81001; 82570; 82948; 83735; 84443; 84484; 85025; 86140; 94640; 96372; 96374; 96375; 97110; 97116; 97161; 97166; 97530; 97535; 99285; A4565; A9270; G0378; J0456; J1170; J1650; J1815; J2270; J2405; J3475; J7030

== ENCOUNTER 2023-02-08 06:43 | Emergency (ER) | payer MEDICARE, MEDICAID, SELFPAY ==
--- NOTE | ~2023-02-08 | XR_ITS ---
EXAMINATION: XR wrist LT min 3V DATE: 02/08/2023 08:12 INDICATION: Left wrist pain, known left wrist fracture. TECHNIQUE: Three views of the left wrist were obtained. COMPARISON: 01/27/2023 FINDINGS: Again seen is a casted and comminuted intra-articular fracture of the distal radius. The di stal fracture fragments remain dorsally displaced approximately 6 mm. No definite change in alignment is noted since the comparison examination. A nondisplaced fracture of the distal ulna is unchanged. Fine osseous detail is obscured by cast material. IMPRESSION: 1. Casted fractures of the distal radius and ulna without significant change. Reviewed, dictated and finalized at location B.
--- NOTE | ~2023-02-08 | XR_ITS ---
EXAMINATION: [id number] DATE: 02/08/2023 08:12 INDICATION: Left chest pain. Fall. TECHNIQUE: A frontal view of the chest and 2 views on 3 hours of the left ribs were obtained. COMPARISON: Chest 2 views 01/27/2023, chest CT 01/11/23 FINDINGS: There is mild atelectasis versus scarring in left lower lung zone. No pleural effusion or p neumothorax. The heart size is normal. Surgical clips in the right upper quadrant are likely from cho lecystectomy. There are subacute and chronic fractures of left third-tenth ribs. There is an old heal ed fracture of proximal left humerus. IMPRESSION: 1. Subacute and chronic left rib fractures again seen. No definite acute fracture since 01/11/23. 2. Mild atelectasis versus scarring in left lower lung zone. Reviewed, dictated and finalized at location A. IMPRESSION: 1. Subacute and chronic left rib fractures again seen. No definite acute fractu re since 01/11/23. 2. Mild atelectasis versus scarring in left lower lung zone.
[2023-02-08 06:44] VITALS: BP 159/56; PULSE 105; RESP 20; TEMP 36.6; O2SAT 100
[2023-02-08 07:16] VITALS: BP 147/68; PULSE 96; RESP 18; O2SAT 100
[2023-02-08] MEDS: HYDROcodone/acetaminophen (*CRX) 5-325 MG TABLET 1 TAB PO (07:37)
--- NOTE | 2023-02-08 08:00 | ED.FALL ---
HPI - Fall General Chief Complaint: Fall Stated Complaint: fall Time Seen by Provider: 02/08/23 07:00 History of Present Illness HPI Narrative: Patient patient is a 62-year-old male who presents ER status post fall. Tripped over dog food bowl. Landed on his left side where he has previous rib fractures and a wrist fracture. He did not strike his head or lose consciousness. Patient was recently admitted and declined placement at a rehab because he did not want to pay or lose his Social Security. He has no additional complaints at this time. He does have an abrasion however to his left farley that was dressed by the medics. Patient has not contacted orthopedic surgery for follow-up yet. Related Data Home Medications Medication Instructions Recorded Confirmed budesonide-formoterol HFA 160 2 puff inhalation Q12H 11/08/20 01/27/23 mcg-4.5 mcg/actuation aerosol inhaler (Symbicort) cholecalciferol (vitamin D3) 1,250 1,250 mcg PO WEEKLY 11/08/20 01/27/23 mcg (50,000 unit) capsule montelukast 10 mg tablet 10 mg PO HS 11/08/20 01/28/23 cyclobenzaprine 10 mg tablet 10 mg PO Q8H PRN Muscle Spasm 04/11/21 01/27/23 venlafaxine 37.5 mg tablet 37.5 mg PO Q12H 04/11/21 01/28/23 pregabalin 100 mg capsule (Lyrica) 100 mg PO Q12H 07/17/22 01/28/23 fenofibrate micronized 200 mg 160 mg PO HS 08/26/22 01/27/23 capsule magnesium oxide 400 mg (241.3 mg 400 mg PO BID 08/26/22 01/28/23 magnesium) tablet zolpidem 10 mg tablet (Ambien) 10 mg PO HS PRN Insomnia 12/24/22 01/28/23 furosemide 40 mg tablet 40 mg PO BID 01/11/23 01/27/23 metformin 1,000 mg tablet 1,000 mg PO Q12H 01/11/23 01/28/23 pravastatin 40 mg tablet 40 mg PO DAILY 01/11/23 01/28/23 sennosides 8.6 mg-docusate sodium 2 tab-cap PO HS PRN constipation 01/11/23 01/28/23 50 mg tablet (Senokot-S) Allergies Allergy/AdvReac Type Severity Reaction Status Date / Time naproxen Allergy Intermediate SWELLING Verified 02/08/23 06:53 cefepime Allergy Unknown Blister Verified 02/08/23 06:53 iohexol Allergy Unknown Unknown Verified 02/08/23 06:53 [From contrast - CT, X-RAY] vancomycin AdvReac Diarrhea Verified 02/08/23 07:34 Review of Systems Review of Systems: All systems reviewed & are unremarkable except as noted in HPI and below Constitutional: Constitutional: Denies chills, Denies fatigue and Denies fever(s) ENT: Denies nasal congestion and Denies sore throat Cardiovascular: Cardiovascular: Denies chest pain, Denies rapid heart rate and Denies radiating jaw, neck or arm pain Comments: Chest wall pain Respiratory: Respiratory: Denies cough and Denies dyspnea Gastrointestinal: Gastrointestinal: Denies abdominal pain, Denies nausea and Denies vomiting Musculoskeletal: Musculoskeletal: Denies back pain, Reports arthralgias and Denies joint swelling Neurologic: Denies syncope and Denies headache(s) [facility] Past Medical History Medical History (Updated 02/08/23 @ 09:50 by Shawn Canales MD) Anemia Anxiety Benign prostatic hyperplasia Cerebrovascular accident (2014) Chronic diastolic heart failure Chronic kidney disease Claustrophobia Depression Diastolic heart failure Echo 08/2022: Mild concentric hypertrophy, systolic function 74%, grade 2 diastolic dysfunction, mild left atrial enlargement, right ventricle not well visualized but grossly normal Distal radius fracture, left Enterobacter sepsis Secondary to UTI. 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
--- NOTE | 2023-02-08 08:08 | PC.NURSE ---
Pt taken to x-ray
== END 2023-02-08 10:53 | disposition home or self-care (01) ==
PROVIDERS: Emergency Provider Emergency Medicine; PCP Internal Medicine
DX: S80.812A Abrasion, left lower leg, initial encounter (principal); D64.9 Anemia, unspecified; F41.9 Anxiety disorder, unspecified; F32.A Depression, unspecified; I50.9 Heart failure, unspecified; G47.30 Sleep apnea, unspecified; E11.9 Type 2 diabetes mellitus without complications; W01.0XXA Fall on same level from slipping, tripping and stumbling without subsequent striking against object, initial encounter
CPT/HCPCS: 71101; 73110; 99284; A4565; A9270

== ENCOUNTER 2023-02-08 13:13 | Emergency (ER) | payer MEDICARE, MEDICAID, SELFPAY ==
--- NOTE | ~2023-02-08 | CT_ITS ---
EXAMINATION: CT cervical spine wo con DATE: 02/08/2023 13:57 INDICATION: Fall with head injury TECHNIQUE: Computed tomography (CT) of the cervical spine was performed without intravenous contrast. Automated exposure control and iterative reconstruction technique were employed. The dose-length pro duct was 457.58 mGy-cm. COMPARISON: Cervical spine CT dated 01/11/2023 FINDINGS: 10 degrees cervical levocurvature. Straightening of the normal cervical lordosis. No spondylolisthesi s or facet subluxation. Solid posterior fusion across the left C3-C4 and C4-C5 facet joints and fusio n across the left C3-C4 uncovertebral joint.. Vertebral body heights are normal. Mild disc height los s at C3-C4 through C5-C6. Severe osteoarthritis bilaterally at the C2-C3 facet joints and mild to mod erate osteoarthritis at the remaining cervical facet joints. Small disc osteophyte complex resulting in mild central canal stenosis at C5-C6. Moderate neural foraminal stenosis on the right at C3-C4 wit h additional minimal to mild foraminal stenosis a few additional cervical levels on both the left and right. Unchanged mild stranding surrounding a few nodular soft tissue density subcutaneous fat poste rior to the occiput, previously demonstrating higher attenuation likely representing evolving posttre atment contusions. IMPRESSION: 1. Mild cervical spondylosis with no acute osseous abnormality. Reviewed, dictated and finalized at location A.
--- NOTE | ~2023-02-08 | CT_ITS ---
EXAMINATION: CT brain wo con DATE: 02/08/2023 13:57 INDICATION: Head injury. TECHNIQUE: Computed tomography (CT) of the head was performed without intravenous contrast. The mA wa s adjusted according to patient size. Iterative reconstruction technique was employed. The dose-lengt h product was 605.33 mGy-cm. COMPARISON: Head CT 01/11/2023 FINDINGS: There are old infarcts in the right frontal and parietal lobes. There is no intracranial he morrhage, acute infarction, or abnormal intracranial mass lesion. There is ex vacuo dilatation of rig ht lateral ventricle. The orbits are normal. There is mild mucosal thickening in the paranasal sinuse s. The mastoid air cells are normal. There is posterior scalp soft tissue swelling. There is left lat eral scalp soft tissue swelling. IMPRESSION: 1. Old infarcts in the right frontal and parietal lobes. Reviewed, dictated and finalized at location A.
--- NOTE | ~2023-02-08 | XR_ITS ---
EXAM: XR wrist LT min 3V DATE: 02/08/2023 16:20 HISTORY: fell again on wrist. KNOWN FX . COMPARISON: Same date at 7:53 AM. FINDINGS: Osseous detail partially obscured by overlying cast material. Stable fixation screw in the fourth proximal phalange. Redemonstration of the comminuted intra-articular distal left radial fract ure, with one half shaft width lateral and posterior displacement. Redemonstration of the probably no ndisplaced distal left ulnar fracture. IMPRESSION: Casted fractures of the distal left radius and ulna without significant change. Reviewed, dictated and finalized at location K. IMPRESSION: Casted fractures of the distal left radius and ulna without signifi cant change.
[2023-02-08 13:16] VITALS: BP 138/67; PULSE 105; RESP 16; TEMP 36.7; O2SAT 97
[2023-02-08 13:40] VITALS: O2SAT 97
[2023-02-08 13:41] VITALS: O2SAT 98
--- NOTE | 2023-02-08 15:02 | ED.HEATRA ---
HPI - Head Injury General Chief complaint: Head Injury Stated complaint: fall Time Seen by Provider: 02/08/23 13:25 History of Present Illness HPI Narrative: Patient is a 62-year-old male presenting after another fall. Patient was just here this morning after falling. He states that this morning he tripped on the dog bowl and he landed on his left wrist. Patient has refused placement numerous times and is unwilling to give up his Social Security check. Unfortunately, he had another fall once he got home. He states that he tripped on his O2 tubing while trying to make food. States that he fell forward striking his head. States that he again landed on his left wrist. He did not lose consciousness. He denies any new pain. Related Data Home Medications Medication Instructions Recorded Confirmed budesonide-formoterol HFA 160 2 puff inhalation Q12H 11/08/20 01/27/23 mcg-4.5 mcg/actuation aerosol inhaler (Symbicort) cholecalciferol (vitamin D3) 1,250 1,250 mcg PO WEEKLY 11/08/20 01/27/23 mcg (50,000 unit) capsule montelukast 10 mg tablet 10 mg PO HS 11/08/20 01/28/23 cyclobenzaprine 10 mg tablet 10 mg PO Q8H PRN Muscle Spasm 04/11/21 01/27/23 venlafaxine 37.5 mg tablet 37.5 mg PO Q12H 04/11/21 01/28/23 pregabalin 100 mg capsule (Lyrica) 100 mg PO Q12H 07/17/22 01/28/23 fenofibrate micronized 200 mg 160 mg PO HS 08/26/22 01/27/23 capsule magnesium oxide 400 mg (241.3 mg 400 mg PO BID 08/26/22 01/28/23 magnesium) tablet zolpidem 10 mg tablet (Ambien) 10 mg PO HS PRN Insomnia 12/24/22 01/28/23 furosemide 40 mg tablet 40 mg PO BID 01/11/23 01/27/23 metformin 1,000 mg tablet 1,000 mg PO Q12H 01/11/23 01/28/23 pravastatin 40 mg tablet 40 mg PO DAILY 01/11/23 01/28/23 sennosides 8.6 mg-docusate sodium 2 tab-cap PO HS PRN constipation 01/11/23 01/28/23 50 mg tablet (Senokot-S) Allergies Allergy/AdvReac Type Severity Reaction Status Date / Time naproxen Allergy Intermediate SWELLING Verified 02/08/23 06:53 cefepime Allergy Unknown Blister Verified 02/08/23 06:53 iohexol Allergy Unknown Unknown Verified 02/08/23 06:53 [From contrast - CT, X-RAY] vancomycin AdvReac Diarrhea Verified 02/08/23 07:34 Review of Systems Review of Systems: All systems reviewed & are unremarkable except as noted in HPI and below PMFSH Past Medical History Medical History Anemia Anxiety Benign prostatic hyperplasia Cerebrovascular accident (2014) Chronic diastolic heart failure Chronic kidney disease Claustrophobia Depression Diastolic heart failure Echo 08/2022: Mild concentric hypertrophy, systolic function 74%, grade 2 diastolic dysfunction, mild left atrial enlargement, right ventricle not well visualized but grossly normal Distal radius fracture, left Enterobacter sepsis Secondary to UTI. 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 Smoking packs per day: 0.75 Smoking cigarettes per day: 15.0 Years smoked: 40 Smoking pack-year
--- NOTE | 2023-02-08 15:38 | PCCCNOTE ---
Met with patient in room 6 per request of ED MD Dr. Russ. Patient was seen here earlier today and had another fall. Patient has been here multiple times and his insurance refuses to pay for rehab patient will need senior living care. He was at [facility] and accepted on Medicaid but refused to turn over his check, per Tammie they will not accept him back. Patient understands that he will not go to a facility on his insurance. He continues to refuse to turn over his monthly income to any facility as he can't pay for his truck. He understands that we cannot find him a facility is he will not accept this. He verbalizes understanding. Updated Dr. López and his RN Kelsey.
[2023-02-08] MEDS: ACETAMINOPHEN 500 MG TABLET 1000 MG PO (16:54)
== END 2023-02-08 18:04 | disposition home or self-care (01) ==
PROVIDERS: Emergency Provider Emergency Medicine; PCP Internal Medicine
DX: S00.81XA Abrasion of other part of head, initial encounter (principal); F17.210 Nicotine dependence, cigarettes, uncomplicated; D64.9 Anemia, unspecified; F41.9 Anxiety disorder, unspecified; I50.9 Heart failure, unspecified; E11.9 Type 2 diabetes mellitus without complications; W01.0XXA Fall on same level from slipping, tripping and stumbling without subsequent striking against object, initial encounter
CPT/HCPCS: 70450; 71101; 72125; 73110; 99284; A4565; A9270

== ENCOUNTER 2023-04-18 21:39 | Emergency (ER) | payer MEDICARE, MEDICAID, SELFPAY ==
[2023-04-18] VITALS (8 sets, daily range): BP systolic 126–146; BP diastolic 48–83; PULSE 102–110; RESP 15–27; O2SAT 93–94
--- NOTE | ~2023-04-18 | CT_ITS ---
Non-contrast Head CT History: Status post fall COMPARISON: 02/08/2023 Technique: Axial non-contrast imaging of the brain was performed. Dose reduction technique was used on this scan by utilizing automated exposure control and iterative reconstruction technique. The dose -length product (DLP) was 681.00 mGy-cm. Findings: There is no evidence of intracranial hemorrhage, mass lesion, or acute infarct. Extensive old right frontal lobe infarct is unchanged. The ventricles and subarachnoid spaces are normal in si ze. The calvarium appears normal. The visualized paranasal sinuses and mastoid air cells are clear. Impression: No acute abnormality seen. Stable extensive old right frontal lobe infarct. Reviewed, dictated and finalized at location . Impression: No acute abnormality seen. Stable extensive old right frontal lobe infarct.
--- NOTE | ~2023-04-18 | CT_ITS ---
Noncontrast CT scan of the cervical spine Technique: Multiple contiguous axial [address] images of the cervical spine were obtained and rec onstructed in 2D sagittal and coronal planes on the acquisition scanner. Dose reduction technique was used on this scan by utilizing automated exposure control, adjustment of the mA and/or kV according to patient size. The dose-length product (DLP) was 564.05 mGy-cm. Clinical History: Pain COMPARISON: 02/08/2023 Findings: No fractures or dislocations. Osseous alignment is unchanged from prior exam. There is adv anced facet arthropathy at the left C2-C3 and C3-C4 facet joints. There is fusion of the right facet joints at C3-C4 and C4-C5, there is advanced degenerative facet arthropathy at the right C2-C3 and C5 -C6 facet joints. There are mild degenerative disc changes in the cervical spine. There is right neur al foraminal narrowing at C3-C4. No prevertebral soft tissue swelling. Impression: No fracture or subluxation of the cervical spine. Degenerative change, as above, similar to prior exam. Reviewed, dictated and finalized at location . Impression: No fracture or subluxation of the cervical spine. Degenerative change, as above, similar to prior exam.
[2023-04-18] MEDS: HYDROcodone/acetaminophen (*CRX) 7.5-325 MG TABLET 1 TAB PO (22:57)
[2023-04-19] VITALS (15 sets, daily range): BP systolic 129; BP diastolic 59; PULSE 105–114; RESP 14–18; O2SAT 92–94
--- NOTE | 2023-04-19 01:01 | ED.FALL ---
HPI - Fall General Chief Complaint: Fall Stated Complaint: fall Time Seen by Provider: 04/18/23 22:40 Source: patient and EMS Mode of arrival: EMS History of Present Illness HPI Narrative: 62 years old white male came from home after missing his left a chair and fell, struck the back of the head on the floor, no loss of consciousness complaining of occipital pain and neck pain. History of chronic neck pain. He denies any fever, chills, nausea, vomiting, chest pain, shortness of breath or abdominal pain. MD complaint: fall Related Data Home Medications Medication Instructions Recorded Confirmed budesonide-formoterol HFA 160 2 puff inhalation Q12H 11/08/20 01/27/23 mcg-4.5 mcg/actuation aerosol inhaler (Symbicort) cholecalciferol (vitamin D3) 1,250 1,250 mcg PO WEEKLY 11/08/20 01/27/23 mcg (50,000 unit) capsule montelukast 10 mg tablet 10 mg PO HS 11/08/20 01/28/23 cyclobenzaprine 10 mg tablet 10 mg PO Q8H PRN Muscle Spasm 04/11/21 01/27/23 venlafaxine 37.5 mg tablet 37.5 mg PO Q12H 04/11/21 01/28/23 pregabalin 100 mg capsule (Lyrica) 100 mg PO Q12H 07/17/22 01/28/23 fenofibrate micronized 200 mg 160 mg PO HS 08/26/22 01/27/23 capsule magnesium oxide 400 mg (241.3 mg 400 mg PO BID 08/26/22 01/28/23 magnesium) tablet zolpidem 10 mg tablet (Ambien) 10 mg PO HS PRN Insomnia 12/24/22 01/28/23 furosemide 40 mg tablet 40 mg PO BID 01/11/23 01/27/23 metformin 1,000 mg tablet 1,000 mg PO Q12H 01/11/23 01/28/23 pravastatin 40 mg tablet 40 mg PO DAILY 01/11/23 01/28/23 sennosides 8.6 mg-docusate sodium 2 tab-cap PO HS PRN constipation 01/11/23 01/28/23 50 mg tablet (Senokot-S) Allergies Allergy/AdvReac Type Severity Reaction Status Date / Time naproxen Allergy Intermediate SWELLING Verified 04/18/23 22:51 cefepime Allergy Unknown Blister Verified 04/18/23 22:51 iohexol Allergy Unknown Unknown Verified 04/18/23 22:51 [From contrast - CT, X-RAY] iodine Allergy Other Verified 04/18/23 22:51 vancomycin AdvReac Diarrhea Verified 04/18/23 22:51 Review of Systems Review of Systems: All systems reviewed & are unremarkable except as noted in HPI and below PMFSH Past Medical History Medical History Anemia Anxiety Benign prostatic hyperplasia Cerebrovascular accident (2014) Chronic diastolic heart failure Chronic kidney disease Claustrophobia Depression Diastolic heart failure Echo 08/2022: Mild concentric hypertrophy, systolic function 74%, grade 2 diastolic dysfunction, mild left atrial enlargement, right ventricle not well visualized but grossly normal Distal radius fracture, left Enterobacter sepsis Secondary to UTI. Fracture of proximal end of left humerus Left cervical radiculopathy Migraines MRSA infection Myelofibrosis Neuropathy Obstructive sleep apnea Noncompliant with CPAP Pulmonary embolism (~01/2020) PVD (peripheral vascular disease) Type 2 diabetes mellitus Surgical History Surgical History Amputation of right forefoot Amputation of right great toe History of cholecystectomy History of hernia repair History of splenectomy (08/2019) Left great toe amputee (~04/2020) Partial Family History Family History Father , 75 Congestive heart failure Mother , 74 Brain bleed Sibling , Sister Cancer Dementia Social History Social History (System 03/24/23 @ 12:18 by Amy Abreu) Social History: Surrogate medical decision maker: Humaira Schmidt (significant other) or Gloria Esparza (sister) Code status: Full code. Smoking packs per day: 0.75 Smoking cigarettes per day: 15.0 Years smoked: 40 Smoking pack-years: 30.00 Smoking status: Current every day smoker Tobacco type: cigars Smoking end date: 10/18/94 Alcohol intake: never Alcohol use details: 1/month Sub
== END 2023-04-19 04:20 | disposition home or self-care (01) ==
PROVIDERS: Emergency Provider Emergency Medicine; PCP Nurse Practitioner Family
DX: S09.90XA Unspecified injury of head, initial encounter (principal); D64.9 Anemia, unspecified; F41.9 Anxiety disorder, unspecified; I50.9 Heart failure, unspecified; G47.30 Sleep apnea, unspecified; E11.9 Type 2 diabetes mellitus without complications; W19.XXXA Unspecified fall, initial encounter
CPT/HCPCS: 70450; 72125; 99284; A9270

== ENCOUNTER 2023-05-12 04:40 | Emergency (ER) | payer MEDICARE, MEDICAID, SELFPAY ==
[2023-05-12] VITALS (15 sets, daily range): BP systolic 128–155; BP diastolic 60–97; PULSE 108–117; RESP 14–25; TEMP 36.8; O2SAT 79–100
--- NOTE | ~2023-05-12 | XR_ITS ---
Portable chest x-ray Comparison: 03/20/2023 Clinical History: Left rib pain Findings: Lungs are clear, without focal consolidation or pleural effusion. Cardiomediastinal silho uette is stable. Stable chronic left-sided rib fracture deformities. Probable chronic fracture deform ity of the proximal left humerus. Impression: Clear lungs. Chronic left rib fracture deformities, stable from prior exam. Probably chronic fracture deformity the proximal left humerus. Reviewed, dictated and finalized at location . Impression: Clear lungs. Chronic left rib fracture deformities, stable from prior exam. Probably chronic fracture deformity the proximal left humerus.
--- NOTE | ~2023-05-12 | CT_ITS ---
CT Facial Bones and Cervical Spine Clinical Indication: Trauma Technique: Contiguous axial scans were obtained through the facial bones and cervical spine followed by coronal and sagittal reconstructions. Dose reduction technique was used on this scan by utilizing automated exposure control and iterative reconstruction technique. The dose-length product (DLP) was 756.67 mGy-cm. Findings: CT facial bones: Bilateral minimally displaced nasal bone fractures are present. No other facial bone fractures are identified. The visualized paranasal sinuses are clear. Intraorbital soft tissues appe ar normal. CT cervical spine: No fractures or subluxation. There is fusion of the right facet joints at C3-C4 a nd C4-C5. There is right neural foraminal narrowing at C3-C4. There is bilateral neural foraminal francia rowing at C4-C5. No prevertebral soft tissue swelling. Impression: Bilateral minimally displaced nasal bone fractures. No fracture or subluxation of the cervical spine. Degenerative change, as above. Reviewed, dictated and finalized at [facility]. Impression: Bilateral minimally displaced nasal bone fractures. No fracture or subluxation of the cervical spine. Degenerative change, as above.
--- NOTE | ~2023-05-12 | CT_ITS ---
Clinical Indication: Trauma CT Scan of the Chest, Abdomen, and Pelvis with Contrast: Technique: Contiguous sections were acquired throughout the chest, abdomen, and pelvis without IV con trast administration. Dose reduction technique was used on this scan by utilizing automated exposure control and iterative reconstruction technique. The dose-length product (DLP) was 1746.34 mGy-cm. COMPARISON: 03/20/2023 Findings: There is no evidence of any significant mediastinal, hilar or axillary lymphadenopathy. The mediastin al soft tissues appear normal. There is no evidence of pleural or pericardial effusion. Large calcified right middle lobe granuloma present. There is mild bibasilar atelectatic change. Ther e are subacute, healing fractures of the left seventh, eighth, ninth, and 10th ribs, similar appearan ce to prior exam. Old, healed fracture deformities of the left fourth, fifth, sixth ribs are also unc hanged. No definite acute fracture identified. The liver, spleen, pancreas, right adrenal gland and right kidney are within normal limits. 5 cm left adrenal myelolipoma is present. 4 mm nonobstructing left renal stone present. Cholecystectomy clips are present. No evidence of aortic aneurysm. No lymphadenopathy. No bowel obstruction or bowel wall thickening. Normal appendix. Urinary bladder is unremarkable. No pelvic mass evident. No ascites. Impression: Subacute fractures of the left seventh, eighth, ninth, and 10th ribs are similar to prior exam from . No or acute fracture is evident. Additional old, healed fracture deformities of the left fourth, fifth, and sixth ribs, also unchanged . 5 cm left adrenal myelolipoma. 4 mm nonobstructing left renal stone. Reviewed, dictated and finalized at [facility]. Impression: Subacute fractures of the left seventh, eighth, ninth, and 10th ribs are simila r to prior exam from 03/20/2023. No or acute fracture is evident. Additional old, healed fracture deformities of the left fourth, fifth, and sixt h ribs, also unchanged. 5 cm left adrenal myelolipoma. 4 mm nonobstructing left renal stone.
--- NOTE | ~2023-05-12 | CT_ITS ---
Non-contrast Head CT History: Head injury COMPARISON: 04/18/2023 Technique: Axial non-contrast imaging of the brain was performed. Dose reduction technique was used on this scan by utilizing automated exposure control and iterative reconstruction technique. The dose -length product (DLP) was 756.67 mGy-cm. Findings: There is no evidence of intracranial hemorrhage, mass lesion, or acute infarct. Extensive old right MCA distribution infarct is unchanged.. The ventricles and subarachnoid spaces are dilated . The calvarium appears normal. The visualized paranasal sinuses and mastoid air cells are clear. Impression: No acute abnormality seen. Extensive old right MCA distribution infarct, unchanged. Reviewed, dictated and finalized at location . Impression: No acute abnormality seen. Extensive old right MCA distribution infarct, unchanged.
--- NOTE | 2023-05-12 05:25 | ED.GENADULT ---
HPI - General Adult General Chief complaint: Fall Stated complaint: GLF, NOSE INJURY Time Seen by Provider: 05/12/23 04:55 History of Present Illness HPI narrative: 62 year old male presented after mechanical fall. Per patient, he was intoxicated today, walking into the kitchen, when he tripped, he fell and hit his face. He noted bleeding, so presented to the ED for further evaluation. He denied nausea/vomiting, shortness of breath, abdominal pain, injury elsewhere. Patient also report falling and hitting her left chest. Related Data Home Medications Medication Instructions Recorded Confirmed budesonide-formoterol HFA 160 2 puff inhalation Q12H 11/08/20 01/27/23 mcg-4.5 mcg/actuation aerosol inhaler (Symbicort) cholecalciferol (vitamin D3) 1,250 1,250 mcg PO WEEKLY 11/08/20 01/27/23 mcg (50,000 unit) capsule montelukast 10 mg tablet 10 mg PO HS 11/08/20 01/28/23 cyclobenzaprine 10 mg tablet 10 mg PO Q8H PRN Muscle Spasm 04/11/21 01/27/23 venlafaxine 37.5 mg tablet 37.5 mg PO Q12H 04/11/21 01/28/23 pregabalin 100 mg capsule (Lyrica) 100 mg PO Q12H 07/17/22 01/28/23 fenofibrate micronized 200 mg 160 mg PO HS 08/26/22 01/27/23 capsule magnesium oxide 400 mg (241.3 mg 400 mg PO BID 08/26/22 01/28/23 magnesium) tablet zolpidem 10 mg tablet (Ambien) 10 mg PO HS PRN Insomnia 12/24/22 01/28/23 furosemide 40 mg tablet 40 mg PO BID 01/11/23 01/27/23 metformin 1,000 mg tablet 1,000 mg PO Q12H 01/11/23 01/28/23 pravastatin 40 mg tablet 40 mg PO DAILY 01/11/23 01/28/23 sennosides 8.6 mg-docusate sodium 2 tab-cap PO HS PRN constipation 01/11/23 01/28/23 50 mg tablet (Senokot-S) Allergies Allergy/AdvReac Type Severity Reaction Status Date / Time naproxen Allergy Intermediate SWELLING Verified 04/18/23 22:51 cefepime Allergy Unknown Blister Verified 04/18/23 22:51 iohexol Allergy Unknown Unknown Verified 04/18/23 22:51 [From contrast - CT, X-RAY] iodine Allergy Other Verified 04/18/23 22:51 vancomycin AdvReac Diarrhea Verified 04/18/23 22:51 Review of Systems Review of Systems: See HPI [facility] Past Medical History Medical History Anemia Anxiety Benign prostatic hyperplasia Cerebrovascular accident (2014) Chronic diastolic heart failure Chronic kidney disease Claustrophobia Depression Diastolic heart failure Echo 08/2022: Mild concentric hypertrophy, systolic function 74%, grade 2 diastolic dysfunction, mild left atrial enlargement, right ventricle not well visualized but grossly normal Distal radius fracture, left Enterobacter sepsis Secondary to UTI. 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 Smoking packs per day: 0.75 Smoking cigarettes per day: 15.0 Years smoked: 40 Smoking pack-years: 30.00 Smoking status: Current every day smoker Tobacco type: cigars Smoking end date: 10/18/94 Alcohol intake: never Alcohol use details: 1/month Substance use: former Substance use type: does not use Lack of Transportat
[2023-05-12] MEDS: ACETAMINOPHEN 500 MG TABLET 1000 MG PO (05:49)
--- NOTE | 2023-05-12 07:10 | PC.NURSE ---
Patient report received from EDUARDO Haynes. All questions answered and care of patient assumed.
[2023-05-12 07:32] LABS: Basophils Absolute Auto 0.1 K/mm3 (0.0-0.1); Basophils Percent Auto 0.6 % (0.2-1.2); Eosinophils Absolute Auto 0.2 K/mm3 (0-0.3); Eosinophils Percent Auto 1.2 % (0-4.4); Hematocrit 40.5 % (42.0-52.0); Hemoglobin 13.5 g/dL (14.0-18.0); Immature Granulocyte Absolute 0.24 K/mm3 (0.00-0.031); Immature Granulocyte Percent A 1.2 % (0-0.5); Lymphocytes Absolute Auto 2.79 K/mm3 (0.9-3.2); Mean Corpuscular HGB Conc 33.3 g/dl (32-36); Mean Corpuscular Hemoglobin 30.9 pg (26-34); Mean Corpuscular Volume 92.7 fl (80-100); Mean Platelet Volume 10.5 fl (7.4-10.4); Monocytes Absolute Auto 1.6 K/mm3 (0.1-0.6); Monocytes Percent Auto 8.2 % (2.6-8.5); Neutrophils Absolute Auto 14.9 K/mm3 (1.3-6.7); Neutrophils Percent Auto 74.8 % (45.5-73.1); Nucleated Red Blood Cells Perc 0.1 % (0.0-0.2); Platelet Count Result 549 k/mm3 (150-375); Red Blood Count 4.37 M/mm3 (4.6-6.20); Red Cell Distribution Width 14.6 % (11.5-14.5); White Blood Count 19.9 K/mm3 (4.5-10.0)
[2023-05-12] MEDS: CYCLOBENZAPRINE HCL 10 MG TABLET PO (07:35)
[2023-05-12 07:43] LABS: Ethanol < 10 mg/dL (<10)
[2023-05-12 07:49] LABS: Anion Gap 7 mmol/L (8-16); Blood Urea Nitrogen 23 mg/dL (9-20); Calcium 9.7 mg/dL (8.4-10.2); Carbon Dioxide 27 mmol/L (22-30); Chloride 103 mmol/L (98-107); Estimated CRCL calculation 63 ml/min; Estimated Glomerular Filt Rate > 60; Glucose 268 mg/dL (65-110); Potassium 4.3 mmol/L (3.4-5.0); Sodium 137 mmol/L (137-145)
== END 2023-05-12 06:40 | disposition home or self-care (01) ==
PROVIDERS: Emergency Provider Emergency Medicine; PCP Nurse Practitioner Family
DX: S02.2XXA Fracture of nasal bones, initial encounter for closed fracture (principal); S22.42XA Multiple fractures of ribs, left side, initial encounter for closed fracture; F17.210 Nicotine dependence, cigarettes, uncomplicated; D64.9 Anemia, unspecified; F41.9 Anxiety disorder, unspecified; I50.9 Heart failure, unspecified; N18.9 Chronic kidney disease, unspecified; F32.A Depression, unspecified; G47.30 Sleep apnea, unspecified; E11.9 Type 2 diabetes mellitus without complications; Z79.84 Long term (current) use of oral hypoglycemic drugs; W01.0XXA Fall on same level from slipping, tripping and stumbling without subsequent striking against object, initial encounter
CPT/HCPCS: 36415; 70450; 70486; 71045; 71250; 72125; 74176; 80048; 80307; 85025; 99284; A9270

== ENCOUNTER 2023-05-30 04:00 | Emergency (ER) | payer MEDICARE, MEDICAID, SELFPAY ==
[2023-05-30] VITALS (10 sets, daily range): BP systolic 123–158; BP diastolic 64–78; PULSE 88–105; RESP 16–20; TEMP 36.4–36.8; O2SAT 94–97
--- NOTE | ~2023-05-30 | XR_ITS ---
EXAMINATION: XR wrist LT min 3V DATE: 05/30/2023 05:01 INDICATION: Left wrist pain after fall, known wrist fracture TECHNIQUE: Three views of the left wrist were obtained. COMPARISON: 02/08/2023 FINDINGS: There is a chronic, partially healed, comminuted intra-articular fracture of the distal rad ius. The distal fracture fragments again demonstrate stable chronic dorsal displacement. A healed fra cture of the distal ulna is noted. No acute fracture is identified. Calcified atherosclerosis is note d. There is soft tissue swelling of the wrist. An orthopedic screw is present in the fourth proximal phalanx. IMPRESSION: 1. Chronic, partially healed fracture of the distal radius and healed distal ulnar fracture without a cute osseous abnormality identified. Reviewed, dictated and finalized at location [facility]. IMPRESSION: 1. Chronic, partially healed fracture of the distal radius and healed distal ul francia fracture without acute osseous abnormality identified.
--- NOTE | ~2023-05-30 | XR_ITS ---
EXAMINATION: XR chest 1V portable INDICATION: Pain after fall TECHNIQUE: Portable AP chest at 0444 hours COMPARISON: 05/12/2023 FINDINGS: The lungs are free of acute opacities. No pleural effusion or pneumothorax. The cardiomedia stinal silhouette is normal. There is an old fracture of the proximal left humerus. Healed left-sided rib fractures are also noted. IMPRESSION: 1. No acute cardiopulmonary abnormality. Reviewed, dictated and finalized at location [facility].
--- NOTE | 2023-05-30 04:17 | ECG_ITS ---
Measurements Intervals [place] Rate: 100 P: 24 GA: 177 QRS: 5 QRSD: 93 T: 55 QT: 366 QTc: 473 Interpretive Statements SINUS TACHYCARDIA NONSPECIFIC T-WAVE ABNORMALITY ABNORMAL ECG COMPARED TO ECG 01/11/2023 03:59:09 T-WAVE ABNORMALITY NOW PRESENT Electronically Signed On 05-30-2023 10:06:06 CDT by Charlie Kemp M.D.
[2023-05-30 04:37] LABS: Basophils Absolute Auto 0.2 K/mm3 (0.0-0.1); Basophils Percent Auto 0.8 % (0.2-1.2); Eosinophils Absolute Auto 0.2 K/mm3 (0-0.3); Eosinophils Percent Auto 1.1 % (0-4.4); Hemoglobin 13.2 g/dL (14.0-18.0); Immature Granulocyte Absolute 0.34 K/mm3 (0.00-0.031); Immature Granulocyte Percent A 1.6 % (0-0.5); Lymphocytes Absolute Auto 1.95 K/mm3 (0.9-3.2); Lymphocytes Percent Auto 9.5 % (18.3-44.2); Mean Corpuscular HGB Conc 33.8 g/dl (32-36); Mean Corpuscular Hemoglobin 31.7 pg (26-34); Mean Corpuscular Volume 93.5 fl (80-100); Mean Platelet Volume 11.2 fl (7.4-10.4); Monocytes Absolute Auto 1.3 K/mm3 (0.1-0.6); Monocytes Percent Auto 6.3 % (2.6-8.5); Neutrophils Absolute Auto 16.6 K/mm3 (1.3-6.7); Neutrophils Percent Auto 80.7 % (45.5-73.1); Nucleated Red Blood Cells Perc 0.2 % (0.0-0.2); Platelet Count Result 669 k/mm3 (150-375); Red Blood Count 4.17 M/mm3 (4.6-6.20); Red Cell Distribution Width 13.7 % (11.5-14.5); White Blood Count 20.6 K/mm3 (4.5-10.0)
[2023-05-30 04:39] LABS: Glucose Point of Care 212 mg/dl (65-105)
[2023-05-30] MEDS: SODIUM CHLORIDE 0.9% IV 2,000 ML 999 ML IV CONT (04:41)
[2023-05-30 04:49] LABS: Alanine Aminotransferase 20 U/L (6-50); Albumin Level 3.9 g/dL (3.5-5.1); Alkaline Phosphatase 106 U/L (38-126); Anion Gap 7 mmol/L (8-16); Aspartate Amino Transferase 30 U/L (17-59); Bilirubin,Total 0.4 mg/dL (0.2-1.3); Blood Urea Nitrogen 35 mg/dL (9-20); Calcium 8.8 mg/dL (8.4-10.2); Carbon Dioxide 22 mmol/L (22-30); Chloride 101 mmol/L (98-107); Creatine Kinase 65 U/L (55-170); Estimated CRCL calculation 56 ml/min; Estimated Glomerular Filt Rate 56; Glucose 210 mg/dL (65-110); Lactic Acid Reflex 2.8 mmol/L (0.7-2.0); Magnesium 1.1 mg/dL (1.6-2.3); Potassium 4.2 mmol/L (3.4-5.0); Sodium 130 mmol/L (137-145)
--- NOTE | 2023-05-30 04:51 | ED.GENADULT ---
HPI - General Adult General Chief complaint: Fall Stated complaint: falls Time Seen by Provider: 05/30/23 04:03 History of Present Illness HPI narrative: This is a 62-year-old male presenting ED for frequent falls. Patient called EMS 3 times within 1 hour because he kept falling. The patient states that he was trying to transfer himself from chair to chair. Patient has partial amputation of his foot which impairs his mobility. The patient is well known to EMS and they frequently have cited his apartment as unfit live in. the patient is currently complaining of pain to his left wrist which has an old fracture that he has never gotten follow-up for. He just wears a splint. The patient denies head trauma or loss of consciousness. He denies chest pain, difficulty breathing, abdominal pain, fever chills or urinary symptoms. Patient is not interested in being placed in a [facility]. Related Data Home Medications Medication Instructions Recorded Confirmed budesonide-formoterol HFA 160 2 puff inhalation Q12H 11/08/20 01/27/23 mcg-4.5 mcg/actuation aerosol inhaler (Symbicort) cholecalciferol (vitamin D3) 1,250 1,250 mcg PO WEEKLY 11/08/20 01/27/23 mcg (50,000 unit) capsule montelukast 10 mg tablet 10 mg PO HS 11/08/20 01/28/23 cyclobenzaprine 10 mg tablet 10 mg PO Q8H PRN Muscle Spasm 04/11/21 01/27/23 venlafaxine 37.5 mg tablet 37.5 mg PO Q12H 04/11/21 01/28/23 pregabalin 100 mg capsule (Lyrica) 100 mg PO Q12H 07/17/22 01/28/23 fenofibrate micronized 200 mg 160 mg PO HS 08/26/22 01/27/23 capsule magnesium oxide 400 mg (241.3 mg 400 mg PO BID 08/26/22 01/28/23 magnesium) tablet zolpidem 10 mg tablet (Ambien) 10 mg PO HS PRN Insomnia 12/24/22 01/28/23 furosemide 40 mg tablet 40 mg PO BID 01/11/23 01/27/23 metformin 1,000 mg tablet 1,000 mg PO Q12H 01/11/23 01/28/23 pravastatin 40 mg tablet 40 mg PO DAILY 01/11/23 01/28/23 sennosides 8.6 mg-docusate sodium 2 tab-cap PO HS PRN constipation 01/11/23 01/28/23 50 mg tablet (Senokot-S) Allergies Allergy/AdvReac Type Severity Reaction Status Date / Time naproxen Allergy Intermediate SWELLING Verified 05/30/23 04:09 cefepime Allergy Unknown Blister Verified 05/30/23 04:09 iohexol Allergy Unknown Unknown Verified 05/30/23 04:09 [From contrast - CT, X-RAY] iodine Allergy Other Verified 05/30/23 04:09 vancomycin AdvReac Diarrhea Verified 05/30/23 04:09 [facility] Past Medical History Medical History Anemia Anxiety Benign prostatic hyperplasia Cerebrovascular accident (2014) Chronic diastolic heart failure Chronic kidney disease Claustrophobia Depression Diastolic heart failure Echo 08/2022: Mild concentric hypertrophy, systolic function 74%, grade 2 diastolic dysfunction, mild left atrial enlargement, right ventricle not well visualized but grossly normal Distal radius fracture, left Enterobacter sepsis Secondary to UTI. 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 Smoking packs per d
[2023-05-30 05:13] LABS: Influenza A QL RT-PCR Negative (Negative); Influenza B QL RT-PCR Negative (Negative); RSV RNA, RT-PCR Negative (Negative); SARS-CoV-2 RNA PCR Negative (Negative)
--- NOTE | 2023-05-30 05:17 | PC.NURSE ---
Patient given wash cloths for bed bath. Patient able to wash himself up with minimal assistance. Patient stated to throw those away cause they dirty when referring and pointing to his underwear and socks. Patient had visibly soiled socks and underwear when he arrived.
--- NOTE | 2023-05-30 05:51 | PC.NURSE ---
Patient aware of need for urine sample, patient attempted to provide sample with urinal, unsuccessful. ERP notifed, VORB to do straight cath, patient agreeable to cath.
--- NOTE | 2023-05-30 06:21 | PC.NURSE ---
This RN and another RN as well as ERP attempted to straight cath patient,unsuccessful. ERP states try condom cath.
[2023-05-30 07:02] LABS: Appearance Urine Clear (Clear); Bacteria Urine None Seen /hpf; Bilirubin Urine Negative (Negative); Color Urine Yellow (Yellow); Glucose Urine UA 2+ mg/dL (Negative); Ketones Urine Trace mg/dL (Negative); Leukocyte Esterase Ur Negative LEU/UL (Negative); Nitrate Urine Negative (Negative); Non Pathogenic Casts 0-2; Protein Urine 1+ mg/dL (Negative); RBC Urine 0-2 /hpf (0-2); Specific Grav Ur 1.015 (1.001-1.035); Squamous Epithelial Cell Urine None seen /hpf (Few); Urobilinogen Urine 0.2 mg/dL (<2.0); WBC Urine 0-5 /hpf
--- NOTE | 2023-05-30 07:02 | PC.NURSE ---
Patient states he wants to leave AMA and does not want to wait. Patient waiting for EMS to arrive to transport him back home, ETA is [id number].
--- NOTE | 2023-05-30 07:09 | PC.NURSE ---
Patient informed of risks of leaving AMA and benefits of staying for results of work up. Patient a/ox4. Patient signed AMA.
[2023-05-30 07:27] LABS: Add Urine Microscopic? YES
[2023-05-30 07:35] LABS: Reflex Lactic Acid Yes or No Add Lactic
== END 2023-05-30 08:02 | disposition left against medical advice (07) ==
PROVIDERS: Emergency Provider Emergency Medicine; PCP Nurse Practitioner Family
DX: R29.6 Repeated falls (principal); D72.829 Elevated white blood cell count, unspecified; Z20.822 Contact with and (suspected) exposure to COVID-19; E11.22 Type 2 diabetes mellitus with diabetic chronic kidney disease; N18.9 Chronic kidney disease, unspecified; I50.32 Chronic diastolic (congestive) heart failure; E11.40 Type 2 diabetes mellitus with diabetic neuropathy, unspecified; E11.51 Type 2 diabetes mellitus with diabetic peripheral angiopathy without gangrene; D75.81 Myelofibrosis; D64.9 Anemia, unspecified; I73.9 Peripheral vascular disease, unspecified; N40.0 Benign prostatic hyperplasia without lower urinary tract symptoms; Z86.73 Personal history of transient ischemic attack (TIA), and cerebral infarction without residual deficits; Z86.711 Personal history of pulmonary embolism; Z86.14 Personal history of Methicillin resistant Staphylococcus aureus infection; Z87.440 Personal history of urinary (tract) infections; Z90.49 Acquired absence of other specified parts of digestive tract; Z90.81 Acquired absence of spleen; Z89.431 Acquired absence of right foot; Z79.4 Long term (current) use of insulin; Z79.84 Long term (current) use of oral hypoglycemic drugs; S52.572D Other intraarticular fracture of lower end of left radius, subsequent encounter for closed fracture with routine healing; S52.602D Unspecified fracture of lower end of left ulna, subsequent encounter for closed fracture with routine healing; X58.XXXD Exposure to other specified factors, subsequent encounter; R00.0 Tachycardia, unspecified; R94.31 Abnormal electrocardiogram [ECG] [EKG]
CPT/HCPCS: 36415; 71045; 73110; 80053; 81001; 82550; 82948; 83605; 83735; 85025; 87637; 93005; 96360; 96361; 99284; J7030

== ENCOUNTER 2023-05-30 09:59 | Observation (INO) | payer MEDICARE, MEDICAID, SELFPAY ==
[2023-05-30] VITALS (25 sets, daily range): BP systolic 131–147; BP diastolic 58–77; PULSE 90–103; RESP 16–27; TEMP 36.1–36.4; O2SAT 98–100
--- NOTE | ~2023-05-30 | XR_ITS ---
EXAMINATION: XR elbow LT min 3V DATE: 05/30/2023 10:28 INDICATION: Left elbow pain TECHNIQUE: Anteroposterior, two oblique and lateral views of the left elbow were obtained. COMPARISON: None. FINDINGS: Bone alignment is normal. There is no fracture. No joint effusion is identified. There are subtle lytic lesions in the distal humerus. Soft tissues are unremarkable. IMPRESSION: 1. No acute osseous abnormality identified. 2. Subtle lytic lesions of the distal humerus which could reflect metastatic disease, myeloma, or oth er bone lesion. Reviewed, dictated and finalized at location A. IMPRESSION: 1. No acute osseous abnormality identified. 2. Subtle lytic lesions of the distal humerus which could reflect metastatic di sease, myeloma, or other bone lesion.
[2023-05-30 11:00] LABS: Lactic Acid Reflex 1.1 mmol/L (0.7-2.0)
[2023-05-30] MEDS: KETAMINE HCL (*CRX) 500 MG/10 ML VIAL 25 MG IV PUSH (11:07)
--- NOTE | 2023-05-30 12:44 | PM.IMHP ---
H&P: HPI History of Present Illness Date/Time: 05/30/23 15:00 Chief Complaint: Multiple falls. Narrative: This is a 62-year-old male with multiple medical problems including history of stroke, insulin-dependent diabetes, hypertension, orthostatic hypotension, pulmonary embolism, myelofibrosis status post splenectomy, chronic kidney disease, anxiety, and other comorbidities who presented to the emergency department via EMS from home for evaluation of multiple falls. The patient provides the following history. He has a history of falls which he attributes to poor balance since he had his right forefoot amputated. In fact he has several visits to the emergency department this year for falls. He had 3 falls last evening and apparently called EMS 3 times within 1 hour for lift assist. Eventually they were able to talk him into coming into the hospital for evaluation. He left the ER against medical advice not long thereafter but returned later this afternoon after once again sustaining fall. He reports attempting to adjust the volume on his television when he lost his balance and fell back, striking his left elbow on the ground. He denied head trauma with this fall and loss of consciousness and has no other complaints of injury. Blood pressure was stable on arrival to the ED. Urine drug screen was positive for benzodiazepines and cannabinoids. Left elbow x-ray showed no acute osseous abnormalities but did note subtle lytic lesions of the distal humerus which could reflect metastatic disease, myeloma, or other bone lesion. He is being admitted in this setting for PT/OT consultation and probable rehab if not intermediate placement. He denies headache, neck ache, vertigo, fever, chills, sweat, cold and flu symptoms, chest and pleuritic pain, palpitations, shortness of breath, cough, nausea, vomiting, diarrhea, and dysuria. Review of Systems Review of Systems: Twelve systems were reviewed and are negative except for as per HPI. [facility] Past Medical History Medical History (Updated 05/30/23 @ 20:33 by Haven Saldaña PA-C) Anemia Anxiety Benign prostatic hyperplasia Cerebrovascular accident (2014) Chronic anticoagulation Chronic kidney disease Claustrophobia Depression Diastolic heart failure Echo 08/2022: Mild concentric hypertrophy, systolic function 74%, grade 2 diastolic dysfunction, mild left atrial enlargement, right ventricle not well visualized but grossly normal Enterobacter sepsis Secondary to UTI. Fracture of proximal end of left humerus Left cervical radiculopathy Migraines MRSA infection Myelofibrosis Neuropathy Obstructive sleep apnea Noncompliant with CPAP Peripheral vascular disease Pulmonary embolism (01/2020) Type 2 diabetes mellitus Surgical History Surgical History Amputation of right forefoot Amputation of right great toe History of cholecystectomy History of hernia repair History of splenectomy (08/2019) Left great toe amputee (04/2020) Partial Family History Family History Father , 75 Congestive heart failure Mother , 74 Brain bleed Sibling , Sister Cancer Dementia Social History Social History (Updated 05/30/23 @ 20:27 by Haven Saldaña PA-C) Social History: Surrogate medical decision maker: Gloria Esparza (sister) Code status: Full code. Smoking packs per day: 0.75 Smoking cigarettes per day: 15.0 Years smoked: 40 Smoking pack-years: 30.00 Smoking status: Former smoker Tobacco type: cigars Smoking end date: 10/18/94 Alcohol intake: current Drinks per week: 1 Alcohol use details: 1/month Substance use: current Substance use type: marijuana Lack of Transportation: YES Lack of Food: Never True Current Housing: I Have Housing Concerned About Future Housing: YES Difficulty Paying Gas/Electric Bills: No
--- NOTE | 2023-05-30 12:55 | ED.FALL ---
HPI - Fall General Chief Complaint: Fall Stated Complaint: mult falls History of Present Illness HPI Narrative: This is a 62-year-old male, with past history of diabetes and peripheral vascular disease on Eliquis, who returns to the emergency department after a fall at home. The patient left AGAINST MEDICAL ADVICE approximately 2 hours prior to returning. The patient states he was standing, attempting to adjust his television soundbar volume, when he lost his balance striking his left elbow on the ground. He denies head injury or loss of consciousness. He is now agreeable to admission for placement. Related Data Home Medications Medication Instructions Recorded Confirmed budesonide-formoterol HFA 160 2 puff inhalation Q12H 11/08/20 05/30/23 mcg-4.5 mcg/actuation aerosol inhaler (Symbicort) cholecalciferol (vitamin D3) 1,250 1,250 mcg PO WEEKLY 11/08/20 05/30/23 mcg (50,000 unit) capsule montelukast 10 mg tablet 10 mg PO HS 11/08/20 05/30/23 venlafaxine 37.5 mg tablet 37.5 mg PO Q12H 04/11/21 05/30/23 pregabalin 100 mg capsule (Lyrica) 100 mg PO Q12H 07/17/22 05/30/23 magnesium oxide 400 mg (241.3 mg 400 mg PO BID 08/26/22 05/30/23 magnesium) tablet zolpidem 10 mg tablet (Ambien) 10 mg PO HS PRN Insomnia 12/24/22 05/30/23 metformin 1,000 mg tablet 1,000 mg PO Q12H 01/11/23 05/30/23 pravastatin 40 mg tablet 40 mg PO DAILY 01/11/23 05/30/23 insulin aspart U-100 100 unit/mL sliding scale dose subcut 05/30/23 (3 mL) subcutaneous pen (Novolog FlexPen U-100 Insulin aspart) insulin detemir U-100 100 unit/mL 40 unit subcut DAILY 05/30/23 05/30/23 (3 mL) subcutaneous pen (Levemir FlexPen) torsemide 20 mg tablet 20 mg PO DAILY PRN Swellng 05/30/23 05/30/23 Allergies Allergy/AdvReac Type Severity Reaction Status Date / Time naproxen Allergy Intermediate SWELLING Verified 05/30/23 10:06 cefepime Allergy Unknown Blister Verified 05/30/23 10:06 iohexol Allergy Unknown Unknown Verified 05/30/23 10:06 [From contrast - CT, X-RAY] iodine Allergy Other Verified 05/30/23 10:06 vancomycin AdvReac Diarrhea Verified 05/30/23 10:06 Review of Systems Review of Systems: CONSTITUTIONAL: Denies fever, chills, or sweats. CARDIOVASCULAR: Denies chest pain, palpitations, or edema. RESPIRATORY: Denies cough or dyspnea. GASTROINTESTINAL: Denies abdominal pain, nausea, vomiting, or diarrhea. GENITOURINARY: Denies dysuria or hematuria. SKIN: Denies rash or itching. MUSCULOSKELETAL: Left elbow pain denies back pain, joint pain, or myalgia. NEUROLOGIC: Denies headache, numbness, dizziness, or weakness. PSYCHIATRIC: Denies anxiety or depression. [facility] Past Medical History Medical History Anemia Anxiety Benign prostatic hyperplasia Cerebrovascular accident (2014) Chronic diastolic heart failure Chronic kidney disease Claustrophobia Depression Diastolic heart failure Echo 08/2022: Mild concentric hypertrophy, systolic function 74%, grade 2 diastolic dysfunction, mild left atrial enlargement, right ventricle not well visualized but grossly normal Distal radius fracture, left Enterobacter sepsis Secondary to UTI. Fracture of proximal end of left humerus Left cervical radiculopathy Migraines MRSA infection Myelofibrosis Neuropathy Obstructive sleep apnea Noncompliant with CPAP Pulmonary embolism (~01/2020) PVD (peripheral vascular disease) Type 2 diabetes mellitus Surgical History Surgical History Amputation of right forefoot Amputation of right great toe History of cholecystectomy History of hernia repair History of splenectomy (08/2019) Left great toe amputee (~04/2020) Partial Family History Family History Father , 75 Congestive heart failure Mother , 74 Brain bleed Sibling , Sister Cancer Dementia
[2023-05-30 14:12] LABS: Amphetamine Screen Urine Negative (Negative); Barbiturate Screen Urine Negative (Negative); Benzodiazepines Screen Urine Positive (Negative); Cannabinoid Screen Urine Positive (Negative); Cocaine Screen Urine Negative (Negative); Methadone Screen Urine Negative (Negative); Opiate Screen Urine Negative (Negative); Phencyclidine Screen Urine Negative (Negative)
[2023-05-30 17:35] LABS: Glucose Point of Care 138 mg/dl (65-105)
[2023-05-30] MEDS: INSULIN ASPART (*BKC) 100 UNITS/ML SUB-Q (17:44)
[2023-05-30 20:11] LABS: Glucose Point of Care 214 mg/dl (65-105)
[2023-05-30] MEDS: HYDROcodone/acetaminophen (*CRX) 5-325 MG TABLET 1 TAB PO (20:25)
[2023-05-30] MEDS: metFORMIN HCL 500 MG TABLET 1000 MG PO (20:25)
[2023-05-30] MEDS: MICONAZOLE NITRATE 2% CREAM 30 GM TUBE 1 APPLIC TOPICAL (20:25)
[2023-05-30] MEDS: MONTELUKAST SODIUM 10 MG TABLET PO (20:25)
[2023-05-30] MEDS: ZOLPIDEM TARTRATE (*CRX) 5 MG TABLET 10 MG PO (20:25)
[2023-05-30] MEDS: APIXABAN 5 MG TABLET PO (20:25)
[2023-05-30] MEDS: ERGOCALCIFEROL 50,000 UNITS CAPSULE 50000 UNITS PO (20:26)
[2023-05-30] MEDS: METOPROLOL SUCCINATE EXT REL 25 MG TABCR PO (20:26)
[2023-05-30] MEDS: PREGABALIN (*CRX) 50 MG CAPSULE 100 MG PO (20:26)
[2023-05-30] MEDS: VENLAFAXINE HCL 37.5 MG TABLET PO (20:27)
[2023-05-30] MEDS: TORSEMIDE 20 MG TABLET PO (20:28)
[2023-05-30] MEDS: INSULIN GLARGINE (*BKC) 100 UNITS/ML 14 UNITS SUB-Q (20:33)
[2023-05-31] VITALS (14 sets, daily range): BP systolic 117–135; BP diastolic 48–72; PULSE 74–108; RESP 12–18; TEMP 35.7–36.2; O2SAT 97–100
[2023-05-31 05:23] LABS: Basophils Absolute Auto 0.1 K/mm3 (0.0-0.1); Basophils Percent Auto 0.6 % (0.2-1.2); Eosinophils Absolute Auto 0.5 K/mm3 (0-0.3); Eosinophils Percent Auto 3.3 % (0-4.4); Hematocrit 38.8 % (42.0-52.0); Hemoglobin 12.8 g/dL (14.0-18.0); Immature Granulocyte Absolute 0.19 K/mm3 (0.00-0.031); Immature Granulocyte Percent A 1.3 % (0-0.5); Lymphocytes Absolute Auto 2.37 K/mm3 (0.9-3.2); Lymphocytes Percent Auto 16.8 % (18.3-44.2); Mean Corpuscular Hemoglobin 30.8 pg (26-34); Mean Corpuscular Volume 93.5 fl (80-100); Mean Platelet Volume 10.9 fl (7.4-10.4); Monocytes Absolute Auto 1.2 K/mm3 (0.1-0.6); Monocytes Percent Auto 8.4 % (2.6-8.5); Neutrophils Absolute Auto 9.8 K/mm3 (1.3-6.7); Neutrophils Percent Auto 69.6 % (45.5-73.1); Platelet Count Result 643 k/mm3 (150-375); Red Blood Count 4.15 M/mm3 (4.6-6.20); Red Cell Distribution Width 13.5 % (11.5-14.5); White Blood Count 14.1 K/mm3 (4.5-10.0)
[2023-05-31 05:46] LABS: Anion Gap 4 mmol/L (8-16); Blood Urea Nitrogen 18 mg/dL (9-20); Calcium 8.3 mg/dL (8.4-10.2); Carbon Dioxide 25 mmol/L (22-30); Chloride 102 mmol/L (98-107); Estimated CRCL calculation 74 ml/min; Estimated Glomerular Filt Rate > 60; Glucose 237 mg/dL (65-110); Magnesium 1.3 mg/dL (1.6-2.3); Potassium 4.3 mmol/L (3.4-5.0); Sodium 131 mmol/L (137-145)
[2023-05-31 07:53] LABS: Glucose Point of Care 296 mg/dl (65-105)
[2023-05-31] MEDS: FLUTICASONE/SALMETEROL 115-21 MCG INHALER 1 PUFF 2 PUFF INHALATION ×2 (07:56→20:15)
[2023-05-31 09:19] LABS: Glucose Point of Care 288 mg/dl (65-105)
[2023-05-31] MEDS: MAGNESIUM OXIDE 400 MG TABLET PO ×2 (09:20→16:36)
[2023-05-31] MEDS: VENLAFAXINE HCL 37.5 MG TABLET PO ×2 (09:20→21:14)
[2023-05-31] MEDS: APIXABAN 5 MG TABLET PO ×2 (09:21→21:14)
[2023-05-31] MEDS: PREGABALIN (*CRX) 50 MG CAPSULE 100 MG PO ×2 (09:21→21:15)
[2023-05-31] MEDS: PRAVASTATIN SODIUM 20 MG TABLET 40 MG PO (09:21)
[2023-05-31] MEDS: MICONAZOLE NITRATE 2% CREAM 30 GM TUBE 1 APPLIC TOPICAL (09:22)
[2023-05-31] MEDS: metFORMIN HCL 500 MG TABLET 1000 MG PO ×2 (09:24→21:14)
[2023-05-31] MEDS: MAGNESIUM SULF 4 GM/WATER100ML 4 GM/100 ML BAG IVPB (09:25)
[2023-05-31] MEDS: INSULIN GLARGINE (*BKC) 100 UNITS/ML 40 UNITS SUB-Q (09:30)
[2023-05-31] MEDS: INSULIN ASPART (*BKC) 100 UNITS/ML SUB-Q ×3 (09:34→18:53)
[2023-05-31] MEDS: METOPROLOL SUCCINATE EXT REL 25 MG TABCR PO ×2 (09:45→21:15)
[2023-05-31 12:03] LABS: Glucose Point of Care 215 mg/dl (65-105)
--- NOTE | 2023-05-31 12:34 | PM.IMPN ---
Progress Note: A&P Assessment and Plan (1) Frequent falls: Code(s): R29.6 - Repeated falls Status: Acute Assessment and Plan: The patient reports that he loses his balance frequently after his right forefoot amputation. It is likely that this is playing a role in his falls in addition to intermittent orthostatic hypotension (per patient report) and severe diabetic peripheral neuropathy. He also has a left-sided deficit from a prior CVA. He is on anticoagulation for history of pulmonary embolism however that was back in 2019, discuss stopping Eliquis with his doctor given these frequent falls. Luckily he has not sustained any significant injuries. PT and OT consulted. Initiate fall precautions. Care coordination also consulted as he will at least need rehab if not [place] placement. (2) Lytic lesion of bone on x-ray: Code(s): M89.9 - Disorder of bone, unspecified Status: Acute Assessment and Plan: Subtle lytic lesions were noted on the distal humerus on x-ray today which may very well be related to his history of myelofibrosis. He can follow-up with his communication and outreach manager/oncologist regarding these findings. (3) Insulin dependent diabetes mellitus: Status: Chronic Assessment and Plan: Continue basal insulin. Initiate sliding scale insulin, Accu-Cheks, and hypoglycemic protocol. (4) Neuropathy: Code(s): G62.9 - Polyneuropathy, unspecified Status: Acute Assessment and Plan: Continue Lyrica (5) Chronic anticoagulation: Code(s): Z79.01 - prison (current) use of anticoagulants Status: Acute Assessment and Plan: Consider talking with pcp about stopping eliquis (6) Orthostatic hypotension: Code(s): I95.1 - Orthostatic hypotension Status: Acute Assessment and Plan: According to patient has a history of orthostatic hypotension and used to take medication for this. Order orthostatics Q shift. According to patient he fell because he has chronic orthostatic hypotension. (7) Distal radius fracture, left: Qualifiers: Encounter type: initial encounter Fracture morphology: other intra-articular Fracture type: closed Qualified Code(s): S52.572A - Other intraarticular fracture of lower end of left radius, initial encounter for closed fracture Code(s): S52.502A - Unspecified fracture of the lower end of left radius, initial encounter for closed fracture Status: Acute Assessment and Plan: Wrist x-ray revealing chronic partially healed fracture of the distal radius and healed distal ulnar fracture without acute osseous abnormality. Orthopedics consulted. Subjective Date/time seen: 05/31/23 12:34 Interval history: Patient sitting in bed stating that he has uncontrolled pain in his left wrist. His left wrist has a deformity present and patient states that the deformity has been there for quite some time and is there are due to a fall that he had weeks ago. He has been seeing Orthopedics at [facility] and which they stated that he needed surgery. He is not having any current dizziness, visual changes or lightheadedness. He does have orthostatic hypotension and which he is to take medications for but no longer does because he ran out of his script. Ordered orthostatics Q shift. He will likely need placement to rehab at discharge. Exam Narrative: GENERAL: Comfortable, no acute distress HENMT: moist mucous membranes EYES: EOM intact b/l NECK: no lymphadenopathy RESPIRATORY: clear to auscultation CARDIO: RRR GI: soft, nontender, bowel sounds present SKIN: no rashes EXTREMITIES: Left wrist deformity with swelling present and significant decrease in mobility. Objective Data Vital Signs Vital Signs: Vital Signs - 24 hr 05/30/23 13:14 05/30/23 13:15 05/30/23 13:16 Temperature Pulse Rate Respiratory Rate Blood Pressure 138/77 Pulse Oximetry 100 100 100 Oxy
--- NOTE | 2023-05-31 16:08 | PM.CNOR ---
Assessment and Plan Assessment and plan (1) Distal radius fracture, left: Qualifiers: Encounter type: initial encounter Fracture morphology: other intra-articular Fracture type: closed Qualified Code(s): S52.572A - Other intraarticular fracture of lower end of left radius, initial encounter for closed fracture Code(s): S52.502A - Unspecified fracture of the lower end of left radius, initial encounter for closed fracture Status: Acute (2) Lytic lesion of bone on x-ray: Code(s): M89.9 - Disorder of bone, unspecified Status: Acute Plan 62-year-old male with healing left distal radius fracture. He will continue to use the wrist immobilizer. With his the limited use of the left upper extremity, he can continue to use a cane with the right hand if able. More concerning is the lytic lesions on the elbow x-ray, most likely multiple myeloma. I informed him of these and discussed his need to follow-up with Orthopedic Oncology at [facility]. Dr. Diego's information was put in the discharge. History of Present Illness HPI Consult date: 05/31/23 Chief complaint: Multiple Falls, Failure to Thrive Narrative: 62-year-old male with a healing left distal radius fracture. He was seen in the hospital about 4 months ago after a fall in which she suffered this distal radius fracture. Due to his medical history and limited use of the left upper extremity, it was decided to treat this nonsurgically. He has been using a wrist immobilizer. He continues to suffer from multiple falls. Left elbow was also x-rayed in the ER, showed no acute osseous abnormalities but did note subtle lytic lesions of the distal humerus which could reflect metastatic disease, most likely multiple myeloma. He reports that he has attempted to follow-up with [facility] orthopedic Oncology multiple times but every time that he has an appointment, he is unable to get a ride to go and see them. Review of Systems Constitutional: Constitutional: Reports as per HPI Cardiovascular: Cardiovascular: Reports as per HPI Respiratory: Respiratory: Reports as per HPI Gastrointestinal: Gastrointestinal: Reports as per HPI Musculoskeletal: Musculoskeletal: Reports no additional musculoskeletal complaints and Reports as per HPI Neurologic: Reports system reviewed and no additional complaints, except as documented and Reports as per HPI Psychiatric: Psychiatric: Reports as per HPI Hematologic/Lymphatic: Hematologic/Lymphatic: Reports as per HPI Allergic/Immunologic: Allergic/Immunologic: Reports as per HPI [facility] Past Medical History Medical History Anemia Anxiety Benign prostatic hyperplasia Cerebrovascular accident (2014) Chronic anticoagulation Chronic kidney disease Claustrophobia Depression Diastolic heart failure Echo 08/2022: Mild concentric hypertrophy, systolic function 74%, grade 2 diastolic dysfunction, mild left atrial enlargement, right ventricle not well visualized but grossly normal Enterobacter sepsis Secondary to UTI. Fracture of proximal end of left humerus Left cervical radiculopathy Migraines MRSA infection Myelofibrosis Neuropathy Obstructive sleep apnea Noncompliant with CPAP Peripheral vascular disease Pulmonary embolism (01/2020) Type 2 diabetes mellitus Surgical History Surgical History Amputation of right forefoot Amputation of right great toe History of cholecystectomy History of hernia repair History of splenectomy (08/2019) Left great toe amputee (04/2020) Partial Family History Family History Father , 75 Congestive heart failure Mother , 74 Brain bleed Sibling , Sister Cancer Dementia Social History Social History Social History: Surrogat
[2023-05-31] MEDS: HYDROcodone/acetaminophen (*CRX) 5-325 MG TABLET 1 TAB PO ×2 (16:35→21:15)
[2023-05-31] MEDS: TOLNAFTATE 1% POWDER 45 GM BTL 1 APPLIC TOPICAL (16:36)
[2023-05-31 17:04] LABS: Glucose Point of Care 146 mg/dl (65-105)
[2023-05-31 20:04] LABS: Glucose Point of Care 277 mg/dl (65-105)
[2023-05-31] MEDS: MONTELUKAST SODIUM 10 MG TABLET PO (21:14)
[2023-05-31] MEDS: INSULIN GLARGINE (*BKC) 100 UNITS/ML 14 UNITS SUB-Q (21:22)
[2023-05-31] MEDS: ZOLPIDEM TARTRATE (*CRX) 5 MG TABLET 10 MG PO (22:13)
[2023-06-01] VITALS (12 sets, daily range): BP systolic 102–123; BP diastolic 52–66; PULSE 82–95; RESP 12–16; TEMP 35.7–36.4; O2SAT 98–100
[2023-06-01 04:13] LABS: Glucose Point of Care 146 mg/dl (65-105)
[2023-06-01 05:21] LABS: Basophils Absolute Auto 0.1 K/mm3 (0.0-0.1); Basophils Percent Auto 0.8 % (0.2-1.2); Eosinophils Absolute Auto 0.7 K/mm3 (0-0.3); Eosinophils Percent Auto 5.3 % (0-4.4); Hematocrit 40.9 % (42.0-52.0); Hemoglobin 13.6 g/dL (14.0-18.0); Immature Granulocyte Absolute 0.18 K/mm3 (0.00-0.031); Immature Granulocyte Percent A 1.4 % (0-0.5); Lymphocytes Absolute Auto 2.83 K/mm3 (0.9-3.2); Lymphocytes Percent Auto 22.4 % (18.3-44.2); Mean Corpuscular HGB Conc 33.3 g/dl (32-36); Mean Corpuscular Hemoglobin 30.8 pg (26-34); Mean Corpuscular Volume 92.7 fl (80-100); Mean Platelet Volume 11.1 fl (7.4-10.4); Monocytes Absolute Auto 1.3 K/mm3 (0.1-0.6); Monocytes Percent Auto 10.1 % (2.6-8.5); Neutrophils Absolute Auto 7.6 K/mm3 (1.3-6.7); Nucleated Red Blood Cells Perc 0.2 % (0.0-0.2); Platelet Count Result 658 k/mm3 (150-375); Red Blood Count 4.41 M/mm3 (4.6-6.20); Red Cell Distribution Width 13.6 % (11.5-14.5); White Blood Count 12.7 K/mm3 (4.5-10.0)
[2023-06-01 05:31] LABS: Alanine Aminotransferase 19 U/L (6-50); Albumin Level 3.8 g/dL (3.5-5.1); Alkaline Phosphatase 88 U/L (38-126); Anion Gap 6 mmol/L (8-16); Aspartate Amino Transferase 34 U/L (17-59); Bilirubin,Total 0.5 mg/dL (0.2-1.3); Blood Urea Nitrogen 17 mg/dL (9-20); Calcium 8.7 mg/dL (8.4-10.2); Carbon Dioxide 29 mmol/L (22-30); Chloride 96 mmol/L (98-107); Estimated CRCL calculation 68 ml/min; Estimated Glomerular Filt Rate > 60; Glucose 194 mg/dL (65-110); Magnesium 1.8 mg/dL (1.6-2.3); Potassium 4.1 mmol/L (3.4-5.0); Sodium 131 mmol/L (137-145)
[2023-06-01 08:03] LABS: Glucose Point of Care 186 mg/dl (65-105)
[2023-06-01] MEDS: FLUTICASONE/SALMETEROL 115-21 MCG INHALER 1 PUFF 2 PUFF INHALATION ×2 (09:07→19:43)
[2023-06-01] MEDS: APIXABAN 5 MG TABLET PO ×2 (10:22→20:43)
[2023-06-01] MEDS: metFORMIN HCL 500 MG TABLET 1000 MG PO ×2 (10:22→20:43)
[2023-06-01] MEDS: PRAVASTATIN SODIUM 20 MG TABLET 40 MG PO (10:22)
[2023-06-01] MEDS: VENLAFAXINE HCL 37.5 MG TABLET PO ×2 (10:23→20:43)
[2023-06-01] MEDS: METOPROLOL SUCCINATE EXT REL 25 MG TABCR PO ×2 (10:23→20:43)
[2023-06-01] MEDS: PREGABALIN (*CRX) 50 MG CAPSULE 100 MG PO ×2 (10:23→20:43)
[2023-06-01] MEDS: MAGNESIUM OXIDE 400 MG TABLET PO ×2 (10:23→17:40)
[2023-06-01] MEDS: HYDROcodone/acetaminophen (*CRX) 5-325 MG TABLET 1 TAB PO ×2 (10:24→17:40)
[2023-06-01] MEDS: TOLNAFTATE 1% POWDER 45 GM BTL 1 APPLIC TOPICAL ×2 (10:25→20:44)
[2023-06-01] MEDS: INSULIN ASPART (*BKC) 100 UNITS/ML SUB-Q ×3 (10:25→17:41)
[2023-06-01] MEDS: MICONAZOLE NITRATE 2% CREAM 30 GM TUBE 1 APPLIC TOPICAL ×2 (10:25→20:44)
[2023-06-01] MEDS: INSULIN GLARGINE (*BKC) 100 UNITS/ML 40 UNITS SUB-Q (10:26)
[2023-06-01 12:03] LABS: Glucose Point of Care 247 mg/dl (65-105)
--- NOTE | 2023-06-01 13:51 | PM.IMPN ---
Progress Note: A&P Assessment and Plan (1) Frequent falls: Code(s): R29.6 - Repeated falls Status: Acute Assessment and Plan: The patient reports that he loses his balance frequently after his right forefoot amputation. It is likely that this is playing a role in his falls in addition to intermittent orthostatic hypotension (per patient report) and severe diabetic peripheral neuropathy. He also has a left-sided deficit from a prior CVA. He is on anticoagulation for history of pulmonary embolism however that was back in 2019, discuss stopping Eliquis with his doctor given these frequent falls. Luckily he has not sustained any significant injuries. PT and OT consulted. Initiate fall precautions. Care coordination also consulted as he will at least need rehab if not senior living placement. (2) Lytic lesion of bone on x-ray: Code(s): M89.9 - Disorder of bone, unspecified Status: Acute Assessment and Plan: Subtle lytic lesions were noted on the distal humerus on x-ray today which may very well be related to his history of myelofibrosis. He can follow-up with his office manager executive assistant/oncologist regarding these findings. (3) Insulin dependent diabetes mellitus: Status: Chronic Assessment and Plan: Continue basal insulin. Initiate sliding scale insulin, Accu-Cheks, and hypoglycemic protocol. (4) Neuropathy: Code(s): G62.9 - Polyneuropathy, unspecified Status: Acute Assessment and Plan: Continue Lyrica (5) Chronic anticoagulation: Code(s): Z79.01 - ferry terminal agent (current) use of anticoagulants Status: Acute Assessment and Plan: Consider talking with pcp about stopping eliquis (6) Orthostatic hypotension: Code(s): I95.1 - Orthostatic hypotension Status: Acute Assessment and Plan: According to patient has a history of orthostatic hypotension and used to take medication for this. Order orthostatics Q shift. According to patient he fell because he has chronic orthostatic hypotension. (7) Distal radius fracture, left: Qualifiers: Encounter type: initial encounter Fracture morphology: other intra-articular Fracture type: closed Qualified Code(s): S52.572A - Other intraarticular fracture of lower end of left radius, initial encounter for closed fracture Code(s): S52.502A - Unspecified fracture of the lower end of left radius, initial encounter for closed fracture Status: Acute Assessment and Plan: Wrist x-ray revealing chronic partially healed fracture of the distal radius and healed distal ulnar fracture without acute osseous abnormality. Orthopedics consulted and recommending patient follow-up as an outpatient with [facility] orthopedics. Subjective Date/time seen: 06/01/23 13:51 Interval history: Patient doing well today. Orthopedics requesting patient follow-up with [facility] as an outpatient. Awaiting into rehab facility at this time. Exam Narrative: GENERAL: Comfortable, no acute distress HENMT: moist mucous membranes EYES: EOM intact b/l NECK: no lymphadenopathy RESPIRATORY: clear to auscultation CARDIO: RRR GI: soft, nontender, bowel sounds present SKIN: no rashes EXTREMITIES: Left wrist any splint. Objective Data Vital Signs Vital Signs: Vital Signs - 24 hr 05/31/23 14:00 05/31/23 20:15 05/31/23 20:16 Temperature 96.3 F L Pulse Rate 88 85 Respiratory Rate 18 16 Blood Pressure 130/68 Pulse Oximetry 99 97 Oxygen Delivery Nasal Cannula Oxygen Flow Rate 2 Fraction of Inspired Oxygen 28 05/31/23 21:15 05/31/23 20:00 05/31/23 20:05 Temperature 97.2 F L Pulse Rate 80 82 Respiratory Rate 12 Blood Pressure 135/62 122/59 L Pulse Oximetry 99 Oxygen Delivery Oxygen Flow Rate Fraction of Inspired Oxygen 05/31/23 20:10 06/01/23 06:00 06/01/23 10:18 Temperature 96.2 F L Pulse Rate 85 95 Respiratory Rate 16 Blood Pressur
[2023-06-01 14:16] LABS: Glucose Point of Care 226 mg/dl (65-105)
[2023-06-01 17:13] LABS: Glucose Point of Care 108 mg/dl (65-105)
[2023-06-01] MEDS: ZOLPIDEM TARTRATE (*CRX) 5 MG TABLET 10 MG PO (20:43)
[2023-06-01] MEDS: MONTELUKAST SODIUM 10 MG TABLET PO (20:44)
[2023-06-01 21:07] LABS: Glucose Point of Care 114 mg/dl (65-105)
[2023-06-01] MEDS: INSULIN GLARGINE (*BKC) 100 UNITS/ML 14 UNITS SUB-Q (21:47)
[2023-06-02] MEDS: HYDROcodone/acetaminophen (*CRX) 5-325 MG TABLET 1 TAB PO ×2 (01:17→10:13)
[2023-06-02 05:01] LABS: Basophils Absolute Auto 0.1 K/mm3 (0.0-0.1); Basophils Percent Auto 0.8 % (0.2-1.2); Eosinophils Absolute Auto 0.6 K/mm3 (0-0.3); Eosinophils Percent Auto 5.4 % (0-4.4); Hematocrit 38.3 % (42.0-52.0); Immature Granulocyte Absolute 0.14 K/mm3 (0.00-0.031); Immature Granulocyte Percent A 1.2 % (0-0.5); Lymphocytes Absolute Auto 2.82 K/mm3 (0.9-3.2); Lymphocytes Percent Auto 23.7 % (18.3-44.2); Mean Corpuscular HGB Conc 33.9 g/dl (32-36); Mean Corpuscular Hemoglobin 31.3 pg (26-34); Mean Corpuscular Volume 92.3 fl (80-100); Mean Platelet Volume 10.9 fl (7.4-10.4); Monocytes Absolute Auto 1.1 K/mm3 (0.1-0.6); Monocytes Percent Auto 9.5 % (2.6-8.5); Neutrophils Absolute Auto 7.1 K/mm3 (1.3-6.7); Neutrophils Percent Auto 59.4 % (45.5-73.1); Nucleated Red Blood Cells Perc 0.2 % (0.0-0.2); Platelet Count Result 615 k/mm3 (150-375); Red Blood Count 4.15 M/mm3 (4.6-6.20); Red Cell Distribution Width 13.7 % (11.5-14.5); White Blood Count 11.9 K/mm3 (4.5-10.0)
[2023-06-02 05:21] VITALS: BP 119/64; PULSE 83; RESP 14; TEMP 36.4; O2SAT 100
[2023-06-02 05:21] LABS: Alanine Aminotransferase 19 U/L (6-50); Albumin Level 3.4 g/dL (3.5-5.1); Alkaline Phosphatase 85 U/L (38-126); Anion Gap 5 mmol/L (8-16); Aspartate Amino Transferase 26 U/L (17-59); Bilirubin,Total 0.3 mg/dL (0.2-1.3); Blood Urea Nitrogen 18 mg/dL (9-20); Calcium 8.9 mg/dL (8.4-10.2); Carbon Dioxide 27 mmol/L (22-30); Chloride 100 mmol/L (98-107); Estimated CRCL calculation 68 ml/min; Estimated Glomerular Filt Rate > 60; Glucose 137 mg/dL (65-110); Potassium 4.4 mmol/L (3.4-5.0); Sodium 132 mmol/L (137-145)
[2023-06-02 07:58] LABS: Glucose Point of Care 181 mg/dl (65-105)
[2023-06-02] MEDS: INSULIN ASPART (*BKC) 100 UNITS/ML SUB-Q (09:04)
[2023-06-02] MEDS: MAGNESIUM OXIDE 400 MG TABLET PO (09:05)
[2023-06-02] MEDS: APIXABAN 5 MG TABLET PO (09:05)
[2023-06-02] MEDS: INSULIN GLARGINE (*BKC) 100 UNITS/ML 40 UNITS SUB-Q (09:05)
[2023-06-02] MEDS: PRAVASTATIN SODIUM 20 MG TABLET 40 MG PO (09:06)
[2023-06-02] MEDS: MICONAZOLE NITRATE 2% CREAM 30 GM TUBE 1 APPLIC TOPICAL (09:06)
[2023-06-02] MEDS: PREGABALIN (*CRX) 50 MG CAPSULE 100 MG PO (09:06)
[2023-06-02 09:07] VITALS: PULSE 84
[2023-06-02] MEDS: VENLAFAXINE HCL 37.5 MG TABLET PO (09:07)
[2023-06-02] MEDS: TOLNAFTATE 1% POWDER 45 GM BTL 1 APPLIC TOPICAL (09:07)
[2023-06-02] MEDS: metFORMIN HCL 500 MG TABLET 1000 MG PO (09:07)
[2023-06-02] MEDS: METOPROLOL SUCCINATE EXT REL 25 MG TABCR PO (09:07)
--- NOTE | 2023-06-02 09:56 | PCPTNOTE ---
Attempted to see patient for PT, however patient was on a phone call and asked PT to come back.
--- NOTE | 2023-06-02 10:56 | PM.DS ---
DS: Admitting Diagnosis Discharge Date 06/02/23 Admitting Diagnosis Frequent falls DS: Discharge Diagnosis Discharge Diagnosis (1) Frequent falls: Code(s): R29.6 - Repeated falls Status: Acute Assessment and Plan: The patient reports that he loses his balance frequently after his right forefoot amputation. It is likely that this is playing a role in his falls in addition to intermittent orthostatic hypotension (per patient report) and severe diabetic peripheral neuropathy. He also has a left-sided deficit from a prior CVA. He is on anticoagulation for history of pulmonary embolism however that was back in 2019, discuss stopping Eliquis with his doctor given these frequent falls. Luckily he has not sustained any significant injuries. PT and OT consulted. Initiate fall precautions. Care coordination also consulted and pt to dc to SNF (2) Lytic lesion of bone on x-ray: Code(s): M89.9 - Disorder of bone, unspecified Status: Acute Assessment and Plan: Subtle lytic lesions were noted on the distal humerus on x-ray today which may very well be related to his history of myelofibrosis. He can follow-up with his convention planner/oncologist regarding these findings. (3) Insulin dependent diabetes mellitus: Status: Chronic Assessment and Plan: Continue basal insulin. Initiate sliding scale insulin, Accu-Cheks, and hypoglycemic protocol. (4) Neuropathy: Code(s): G62.9 - Polyneuropathy, unspecified Status: Acute Assessment and Plan: Continue Lyrica (5) Chronic anticoagulation: Code(s): Z79.01 - remote computer terminal operator (current) use of anticoagulants Status: Acute Assessment and Plan: Consider talking with pcp about stopping eliquis (6) Orthostatic hypotension: Code(s): I95.1 - Orthostatic hypotension Status: Acute Assessment and Plan: According to patient has a history of orthostatic hypotension and used to take medication for this. Order orthostatics Q shift. According to patient he fell because he has chronic orthostatic hypotension. (7) Distal radius fracture, left: Qualifiers: Encounter type: initial encounter Fracture morphology: other intra-articular Fracture type: closed Qualified Code(s): S52.572A - Other intraarticular fracture of lower end of left radius, initial encounter for closed fracture Code(s): S52.502A - Unspecified fracture of the lower end of left radius, initial encounter for closed fracture Status: Acute Assessment and Plan: Wrist x-ray revealing chronic partially healed fracture of the distal radius and healed distal ulnar fracture without acute osseous abnormality. Orthopedics consulted and recommending patient follow-up as an outpatient with [facility] orthopedics. DS: Summary Hospital Course Hospital Course: This is a 62-year-old male with several medical problems including history of stroke, diabetes, hypertension, orthostatic hypotension, pulmonary embolism, myelofibrosis status post splenectomy, CKD and anxiety that presented to the ED on 05/30/2023 due to evaluation for multiple falls. Patient has been to the ED multiple times in the past year for the same problem. Patient did not lose consciousness or hit his head. CT head negative for acute bleed or stroke. Drug screen positive for benzodiazepine and cannabinoids left elbow x-ray in the ED revealed osseous abnormality and subtle lytic lesions of the distal humerus which could reflect metastatic disease, myeloma or other bone lesion. He does have a chronic wrist fracture that has been seen at [facility]. Orthopedics consulted due to lytic lesion and chronic fracture. Orthopedics recommended follow-up at [facility] orthopedic oncology. Due to patient's multiple falls and instability PT and OT to evaluate patient for placement. Patient worked with PT and OT and patient got approved for SNF. Patient's labs and vital signs are stable and
[2023-06-02 11:00] VITALS: O2SAT 100
[2023-06-02 12:04] LABS: Glucose Point of Care 207 mg/dl (65-105)
[2023-06-02 14:28] LABS: SARS-CoV-2 RNA PCR Negative (Negative)
== END 2023-06-02 14:32 ==
LOC: ANHED 10:33 → ANH2MED 19:41 → ANH3MEDSUR 06-03 07:49
PROVIDERS: Internal Medicine Critical Care Medicine; Physician Assistant; Admitting Provider Chiropractor; Emergency Provider Preventive Medicine Aerospace Medicine; PCP Nurse Practitioner Family; Visit Provider Internal Medicine
DX: S52.572A Other intraarticular fracture of lower end of left radius, initial encounter for closed fracture (principal); M25.522 Pain in left elbow; W18.30XA Fall on same level, unspecified, initial encounter; Y93.89 Activity, other specified; Y92.009 Unspecified place in unspecified non-institutional (private) residence as the place of occurrence of the external cause; R29.6 Repeated falls; M89.9 Disorder of bone, unspecified; Z20.822 Contact with and (suspected) exposure to COVID-19; D64.9 Anemia, unspecified; F41.9 Anxiety disorder, unspecified; N40.0 Benign prostatic hyperplasia without lower urinary tract symptoms; R62.7 Adult failure to thrive; E11.22 Type 2 diabetes mellitus with diabetic chronic kidney disease; N18.9 Chronic kidney disease, unspecified; I50.32 Chronic diastolic (congestive) heart failure; E11.40 Type 2 diabetes mellitus with diabetic neuropathy, unspecified; E11.51 Type 2 diabetes mellitus with diabetic peripheral angiopathy without gangrene; G47.33 Obstructive sleep apnea (adult) (pediatric); Z99.89 Dependence on other enabling machines and devices; I95.1 Orthostatic hypotension; E86.0 Dehydration; D75.81 Myelofibrosis; Z68.32 Body mass index [BMI] 32.0-32.9, adult; F10.90 Alcohol use, unspecified, uncomplicated; F12.90 Cannabis use, unspecified, uncomplicated; Z90.81 Acquired absence of spleen; Z86.73 Personal history of transient ischemic attack (TIA), and cerebral infarction without residual deficits; Z87.898 Personal history of other specified conditions; Z87.891 Personal history of nicotine dependence; Z86.711 Personal history of pulmonary embolism; Z79.51 Long term (current) use of inhaled steroids; Z79.84 Long term (current) use of oral hypoglycemic drugs; Z79.4 Long term (current) use of insulin; Z79.899 Other long term (current) drug therapy; Z82.49 Family history of ischemic heart disease and other diseases of the circulatory system
CPT/HCPCS: 36415; 71045; 73080; 73110; 80048; 80053; 80307; 81001; 82550; 82948; 83605; 83735; 84443; 85025; 87635; 87637; 93005; 94640; 96360; 96361; 96374; 96375; 97161; 97166; 97530; 97535; 99284; 99285; A9270; G0378; J1815; J3475; J7030

== ENCOUNTER 2023-09-09 03:37 | Observation (INO) | payer MEDICARE, MEDICAID, SELFPAY ==
[2023-09-09] VITALS (13 sets, daily range): BP systolic 134–168; BP diastolic 59–112; PULSE 72–119; RESP 16–20; TEMP 36.2–36.9; O2SAT 96–99; BMI 37.3
--- NOTE | ~2023-09-09 | CT_ITS ---
EXAMINATION: CT abdomen pelvis wo con DATE: 09/09/2023 04:44 INDICATION: GI bleed TECHNIQUE: Computed tomography (CT) of the abdomen and pelvis was performed without intravenous contr ast. The dose-length product (DLP) was 1520.07 mGy-cm. Automated exposure control and iterative recon struction technique were employed. COMPARISON: 05/12/2023 FINDINGS: A calcified nodule in the right middle lobe is consistent with old granulomatous disease. T here is mild dependent atelectasis at the visualized lung bases. Heart size is normal. There are mult iple old healed left rib fractures. There is mild circumferential wall thickening of the distal esoph yadira. Changes of cholecystectomy and splenectomy are noted. The pancreas, liver, and right adrenal gl and are normal. There is a 5 cm mass of the left adrenal gland containing soft tissue and macroscopic fat, consistent with a myelolipoma. There is a 3 mm nonobstructing stone of the left kidney lower po le. The right kidney is unremarkable. No pathologically enlarged abdominal or pelvic lymph nodes are identified. No free intraperitoneal gas or evidence of bowel obstruction. A moderate volume of coloni c stool is present. The appendix is normal. There is a fat-containing umbilical hernia. IMPRESSION: 1. No CT correlate for the patient's symptoms. 2. Nonobstructing left nephrolithiasis. Reviewed, dictated and finalized at location F. AL TRAINING TEACHER
--- NOTE | ~2023-09-09 | XR_ITS ---
EXAMINATION: XR chest 2V DATE: 09/09/2023 04:34 INDICATION: Left-sided chest pain TECHNIQUE: AP and lateral views of the chest are obtained. COMPARISON: 05/30/2023 FINDINGS: The lungs are free of acute opacities. No pleural effusion or pneumothorax. The cardiomedia stinal silhouette is normal. There is mild thoracic spondylosis. Multiple healed left rib fractures a re noted. There are cholecystectomy clips in the right upper quadrant. There is an old healed fractur e of the proximal left humerus. IMPRESSION: 1. No acute cardiopulmonary abnormality. Reviewed, dictated and finalized at location F. [employer]
--- NOTE | 2023-09-09 03:41 | ED.CHESTPAIN ---
HPI - Chest Pain General Chief Complaint: Chest Pain Stated Complaint: N/V, CP Time Seen by Provider: 09/09/23 03:41 Source: patient and EMS Mode of arrival: EMS Limitations: no limitations History of Present Illness HPI narrative: This is 63 yo insulin-dependent diabetic male who presents complaint of chest pain. EMS reports that they were called by snf earlier in the evening for the patient to of stating he was having an anxiety attack. He is dissatisfied at the snf and feels that he has not been taking care of. He does not know if he is receiving medications he is prescribed is frustrated that he only is bathed every 3 days. He is also complaining that he is supposed to drink acidophilus milk and that isn't always provided. In addition, the meat they serve is not real sausage or dubon. He is also discontent with the syrup provided for breakfast items. At baseline, he is on 3 L nasal cannula she states he for underlying bronchitis. His Front End Architect is Dr Sherman at [facility] and his maintenance team leader is at [place]. He states that the chest pain is substernal, 8 out of 10 severity and nonradiating. He has also been having emesis as well as diarrhea. He denies any bloody bowel movements. Related Data Home Medications Medication Instructions Recorded Confirmed budesonide-formoterol HFA 160 2 puff inhalation Q12H 11/08/20 09/09/23 mcg-4.5 mcg/actuation aerosol inhaler (Symbicort) cholecalciferol (vitamin D3) 1,250 1,250 mcg PO WEEKLY 11/08/20 09/09/23 mcg (50,000 unit) capsule montelukast 10 mg tablet 10 mg PO HS 11/08/20 09/09/23 venlafaxine 37.5 mg tablet 37.5 mg PO Q12H 04/11/21 09/09/23 pregabalin 100 mg capsule (Lyrica) 100 mg PO Q12H 07/17/22 09/09/23 magnesium oxide 400 mg (241.3 mg 400 mg PO BID 08/26/22 09/09/23 magnesium) tablet zolpidem 10 mg tablet (Ambien) 10 mg PO HS PRN Insomnia 12/24/22 09/09/23 metformin 1,000 mg tablet 1,000 mg PO Q12H 01/11/23 09/09/23 pravastatin 40 mg tablet 40 mg PO DAILY 01/11/23 09/09/23 insulin aspart U-100 100 unit/mL 5 unit subcut ACINSULIN 05/30/23 09/09/23 (3 mL) subcutaneous pen (Novolog FlexPen U-100 Insulin aspart) insulin detemir U-100 100 unit/mL 40 unit subcut DAILY 05/30/23 09/09/23 (3 mL) subcutaneous pen (Levemir FlexPen) torsemide 20 mg tablet 20 mg PO DAILY PRN Swellng 05/30/23 09/09/23 Imodium A-D 2 mg PO BID PRN Diarrhea 09/09/23 09/09/23 Refresh 0.5 % EACH EYE BID PRN Dry Eye(S) 09/09/23 09/09/23 acetaminophen 325 mg PO Q4H PRN minor pain and 09/09/23 09/09/23 fever cetirizine 10 mg PO QAM 09/09/23 09/09/23 dulaglutide 0.75 mg/0.5 mL 0.5 mg subcut WEEKLY 09/09/23 09/09/23 subcutaneous pen injector (Trulicity) lactase 9,000 units PO AC 09/09/23 09/09/23 metolazone 2.5 mg tablet See Rx Instructions .Route .COMPLEX 09/09/23 09/09/23 mupirocin 2 % topical ointment 2 applic topical BID 09/09/23 09/09/23 Allergies Allergy/AdvReac Type Severity Reaction Status Date / Time naproxen Allergy Intermediate SWELLING Verified 05/30/23 10:06 cefepime Allergy Unknown Blister Verified 05/30/23 10:06 iohexol Allergy Unknown Unknown Verified 05/30/23 10:06 [From contrast - CT, X-RAY] iodine Allergy Other Verified 05/30/23 10:06 vancomycin AdvReac Diarrhea Verified 05/30/23 10:06 [facility] Past Medical History Medical History Anemia Anxiety Benign prostatic hyperplasia Cerebrovascular accident (2014) Chronic anticoagulation Chronic kidney disease Claustrophobia Depression Diastolic heart failure Echo 08/2022: Mild concentric hypertrophy, systolic function 74%, grade 2 diastolic dysfunction, mild left atrial enlargement, right ventricle not well visualized but grossly normal Enterobacter sepsis Secondary to UTI. Fracture of proximal end of left humerus Left cervical radiculopathy Migraines MRSA infection Myelofibrosis Neuropathy Obstructive sleep apnea Noncompliant
--- NOTE | 2023-09-09 03:55 | ECG_ITS ---
Measurements Intervals [place] Rate: 113 P: 43 GA: 155 QRS: 15 QRSD: 90 T: 70 QT: 327 QTc: 450 Interpretive Statements SINUS TACHYCARDIA VENTRICULAR TRIGEMINY NONSPECIFIC ST & T-WAVE ABNORMALITY- HIGH LATERAL LEADS BASELINE ARTIFACT- I, II, AVR, AVL, AVF, V1-V3 ABNORMAL ECG COMPARED TO ECG 05/30/2023 04:33:27 VENTRICULAR TRIGEMINY NOW PRESENT Electronically Signed On 09-09-2023 8:52:58 TRAFFIC AND TRANSPORT PLANNER by Phillip Rodriguez D.O.
[2023-09-09] MEDS: ONDANSETRON INJ 4 MG/2 ML VIAL IV PUSH (04:18)
[2023-09-09] MEDS: SODIUM CHLORIDE 0.9% IV 1,000 ML 999 ML IV CONT (04:18)
[2023-09-09 04:22] LABS: Basophils Absolute Auto 0.2 K/mm3 (0.0-0.1); Basophils Percent Auto 0.8 % (0.2-1.2); Eosinophils Absolute Auto 0.5 K/mm3 (0-0.3); Eosinophils Percent Auto 2.6 % (0-4.4); Hematocrit 45.3 % (42.0-52.0); Hemoglobin 15.5 g/dL (14.0-18.0); Immature Granulocyte Absolute 0.17 K/mm3 (0.00-0.031); Immature Granulocyte Percent A 0.9 % (0-0.5); Lymphocytes Absolute Auto 2.35 K/mm3 (0.9-3.2); Lymphocytes Percent Auto 11.9 % (18.3-44.2); Mean Corpuscular HGB Conc 34.2 g/dl (32-36); Mean Corpuscular Hemoglobin 29.9 pg (26-34); Mean Corpuscular Volume 87.5 fl (80-100); Mean Platelet Volume 10.5 fl (7.4-10.4); Monocytes Absolute Auto 1.9 K/mm3 (0.1-0.6); Monocytes Percent Auto 9.4 % (2.6-8.5); Neutrophils Absolute Auto 14.8 K/mm3 (1.3-6.7); Neutrophils Percent Auto 74.4 % (45.5-73.1); Nucleated Red Blood Cells Perc 0.1 % (0.0-0.2); Platelet Count Result 492 k/mm3 (150-375); Red Blood Count 5.18 M/mm3 (4.6-6.20); Red Cell Distribution Width 13.3 % (11.5-14.5); White Blood Count 19.8 K/mm3 (4.5-10.0)
[2023-09-09 04:31] LABS: Alanine Aminotransferase 22 U/L (6-50); Albumin Level 3.7 g/dL (3.5-5.1); Alkaline Phosphatase 92 U/L (38-126); Anion Gap 9 mmol/L (8-16); Aspartate Amino Transferase 33 U/L (17-59); Bilirubin,Total 0.7 mg/dL (0.2-1.3); Blood Urea Nitrogen 20 mg/dL (9-20); Calcium 9.5 mg/dL (8.4-10.2); Carbon Dioxide 30 mmol/L (22-30); Chloride 98 mmol/L (98-107); Estimated CRCL calculation 95 ml/min; Estimated Glomerular Filt Rate > 60; Glucose 200 mg/dL (65-110); Lipase 126 U/L (23-300); Sodium 137 mmol/L (137-145)
[2023-09-09 04:32] LABS: Lactic Acid Reflex 1.8 mmol/L (0.7-2.0)
[2023-09-09 04:38] LABS: Prothrombin Time 13.7 Seconds (11.1-14.7)
[2023-09-09 04:39] LABS: Partial Thromboplastin Time 38.2 SECONDS (22.3-36.8)
[2023-09-09 04:43] LABS: NT Pro B Type Natriuretic Pept 391 pg/mL (19.9-100); Troponin I < 0.012 ng/mL (0.000-0.034)
[2023-09-09 05:58] LABS: Appearance Urine Clear (Clear); Bacteria Urine None Seen /hpf; Bilirubin Urine Negative (Negative); Blood Urine Negative (Negative); Color Urine Yellow (Yellow); Glucose Urine UA Negative (Negative); Ketones Urine Negative (Negative); Leukocyte Esterase Ur Negative LEU/UL (Negative); Nitrate Urine Negative (Negative); Non Pathogenic Casts 0-2; Protein Urine 3+ mg/dL (Negative); Specific Grav Ur 1.014 (1.001-1.035); Squamous Epithelial Cell Urine None seen /hpf (Few); Urobilinogen Urine 0.2 mg/dL (<2.0); WBC Urine 0-5 /hpf
[2023-09-09 06:28] LABS: Add Urine Microscopic? YES
[2023-09-09] MEDS: HALOPERIDOL LACTATE 5 MG/ML VIAL 2.5 MG IV PUSH ×2 (06:43→07:42)
[2023-09-09 07:04] LABS: Influenza A QL RT-PCR Negative (Negative); Influenza B QL RT-PCR Negative (Negative); SARS-CoV-2 RNA PCR Negative (Negative)
[2023-09-09 07:25] LABS: Troponin I < 0.012 ng/mL (0.000-0.034)
[2023-09-09] MEDS: LACTATED RINGERS 1,000 ML 999 ML IV CONT (07:43)
[2023-09-09] MEDS: BELLADONNA ALK/PHENOB ELIX 10 ML, MAG HYDROX/ALUMINUM HYD/SIMETH 30 ML, LIDOCAINE HCL 2... PO (07:53)
[2023-09-09] MEDS: LACTATED RINGERS 1,000 ML 125 ML IV CONT ×2 (11:28→16:57)
[2023-09-09] MEDS: FAMOTIDINE 20 MG/2 ML VIAL IV PUSH ×2 (11:28→21:04)
--- NOTE | 2023-09-09 11:48 | ADMGEN ---
This patient, Jeremías Gaines, was admitted to [facility] Surg Room 316-02. Patient/family oriented to hospital policies and general routines including ID bracelet, bed and alarms, visiting hours, pain management, procedures, bathroom and other care routines, personal items, smoking policy, room service/diet, and visiting hours. Information on how to activate the Rapid Response Team has been discussed. Patient/Family are encouraged to report perceived risks to care and to ask questions if they do not understand what they are told or what they should do.
--- NOTE | 2023-09-09 13:10 | PM.IMHP ---
H&P: HPI History of Present Illness Date/Time: 09/09/23 13:10 Chief Complaint: Chest pain. Narrative: This is a 63-year-old male with multiple medical problems including history of stroke, insulin-dependent diabetes, hypertension, orthostatic hypotension, pulmonary embolism, myelofibrosis status post splenectomy, chronic kidney disease, anxiety, and other comorbidities who presented to the emergency department via EMS from [facility] for evaluation of chest pain. The patient provides the following history. Sometime in the middle of the night he developed burning pain in the substernal region associated with nausea, vomiting, sweats, and belching. He told the triage nurse that his symptoms felt like GERD however he denies that to me and instead reports that he thinks pain was related to his heart however the GI cocktail he was given in the ED helped his symptoms somewhat. He has not had recurrent chest pain but he does have some reproducible discomfort on palpation epigastric region. CMP and CBC were pretty unremarkable. He had 2- troponins thus far. EKG showed ventricular trigeminy but is otherwise unchanged compared to prior tracings. Chest x-ray and CT of the abdomen and pelvis showed no acute findings. He was admitted to the medical floor with ?intractable nausea? however he has not had any further episodes of vomiting and he is hungry at the time my evaluation. His only complaint at this time is of neuropathy pain in his feet and he is requesting his Lyrica. He denies fever, chills, sweats, lightheadedness, dizziness, active chest pain, pleuritic pain, palpitations, sensations of racing heart, orthopnea, paroxysmal nocturnal dyspnea, lower extremity edema, hematemesis, melena, hematochezia, and diarrhea. Review of Systems Review of Systems: Twelve systems were reviewed. Left lower leg is wrapped and he reports having a wound on the farley which he did not want me to evaluate at this time. Reports that it is unchanged and nondraining. No fever, chills, or sweats. No cold or flu symptoms. No history of ulcers to his knowledge. Except as documented, all other systems were reviewed and are negative. [facility] Past Medical History Medical History (Updated 09/09/23 @ 17:24 by Haven Saldaña PA-C) Anemia Anxiety Benign prostatic hyperplasia Cerebrovascular accident (2014) Chronic anticoagulation Chronic kidney disease Claustrophobia Depression Diastolic heart failure Echo 08/2022: Mild concentric hypertrophy, systolic function 74%, grade 2 diastolic dysfunction, mild left atrial enlargement, right ventricle not well visualized but grossly normal Enterobacter sepsis Secondary to UTI. Fracture of proximal end of left humerus Left cervical radiculopathy Migraines MRSA infection Myelofibrosis Neuropathy Obstructive sleep apnea Noncompliant with CPAP Peripheral vascular disease Pulmonary embolism (01/2020) Type 2 diabetes mellitus Surgical History Surgical History (Updated 09/09/23 @ 13:13 by Haven Saldaña PA-C) Amputation of right forefoot Amputation of right great toe History of cholecystectomy (1985) History of hernia repair History of splenectomy (08/2019) Left great toe amputee (04/2020) Partial Family History Family History Father , 75 Congestive heart failure Mother , 74 Brain bleed Sibling , Sister Cancer Dementia Social History Social History (Updated 09/09/23 @ 13:13 by Haven Saldaña PA-C) Social History: Surrogate medical decision maker: Gloria Esparza (sister) Code status: Full code. Smoking packs per day: 0.75 Smoking cigarettes per day: 15.0 Years smoked: 40 Smoking pack-years: 30.00 Smoking status: Former smoker Tobacco type: cigars Smoking end date: 10/18/94 Alcohol intake: current Drinks per week: 1 Alcohol use details: 1/month Substance use: former Substance
[2023-09-09] MEDS: ACETAMINOPHEN 325 MG TABLET 650 MG PO (16:54)
[2023-09-09] MEDS: PREGABALIN (*CRX) 50 MG CAPSULE 100 MG PO (16:54)
[2023-09-09 18:07] LABS: Hemoglobin A1C 7.5 % (<5.7)
[2023-09-09 18:09] LABS: Magnesium 1.4 mg/dL (1.6-2.3)
[2023-09-09 18:21] LABS: Troponin I < 0.012 ng/mL (0.000-0.034)
[2023-09-09] MEDS: MAGNESIUM SULF 2 GM/WATER 50ML 2 GM/50 ML BAG IVPB (19:02)
[2023-09-09] MEDS: PANTOPRAZOLE 40 MG TABLET PO (21:04)
[2023-09-09] MEDS: MONTELUKAST SODIUM 10 MG TABLET PO (21:04)
[2023-09-09] MEDS: APIXABAN 5 MG TABLET PO (21:04)
[2023-09-09] MEDS: METOPROLOL SUCCINATE EXT REL 25 MG TABCR PO (21:04)
[2023-09-09] MEDS: MICONAZOLE NITRATE 2% CREAM 30 GM TUBE 1 APPLIC TOPICAL (21:05)
[2023-09-09] MEDS: VENLAFAXINE HCL 37.5 MG TABLET PO (21:05)
[2023-09-09 23:43] LABS: Glucose Point of Care 172 mg/dl (65-105)
[2023-09-10] VITALS (19 sets, daily range): BP systolic 139–151; BP diastolic 57–80; PULSE 79–113; RESP 18–20; TEMP 36.2–36.6; O2SAT 94–99
--- NOTE | 2023-09-10 | ECHO_ITS ---
Patient Info Name: Jeremías Gaines Age: 63 years : 1960 Gender: Male Ht: 67 in Wt: 238 lbs BSA: 2.31 m2 HR: 88 bpm BP: 147 / 80 mmHg Heart Rhythm: Sinus Rhythm Technical Quality: Fair Exam Date: 09/10/2023 11:24 AM Exam Location: Echo Lab Patient Status: Inpatient Admit Date: 09/09/2023 Staff Ordering Physician: Nahed Vargas MD Mathematics Faculty Member: Irlanda Sandoval RDCS Attending Provider: Enrrique Carson MD Exam Type: CA echo dop color flow w con Study Info Indications R07.9 - Chest pain, unspecified Contrast/Agitated Saline Contrast/Ag. Saline: Definity Amount: 2.00 ml Administered By: Irlanda Sandoval RDCS Existing IV Access: Yes IV Access Condition: patent with no signs of infiltration Summary 1. Left ventricular chamber dimension is normal. 2. Left ventricular systolic function is normal, estimated at 60-65%. 3. There is mildly increased left ventricular wall thickness. 4. The left ventricular diastolic function is grade I diastolic dysfunction. 5. Right ventricular systolic function is normal. 6. There is mild tricuspid valve regurgitation. Left Ventricle Left ventricular chamber dimension is normal. Left ventricular systolic function is normal, estimated at 60-65%. There is mildly increased left ventricular wall thickness. The left ventricular diastolic function is grade I diastolic dysfunction. Right Ventricle Right ventricular chamber dimension is normal. Right ventricular systolic function is normal. Left Atria Left atrial chamber dimension is normal. Right Atria Right atrial chamber dimension is normal. Atrial Septum Intact interatrial septum visualized by color flow imaging. Aortic Valve The aortic valve is probable trileaflet. There is no aortic valve stenosis. There is no aortic valve regurgitation. There is moderate aortic valve calcification. Pulmonic Valve The pulmonic valve is not well visualized. Mitral Valve The mitral valve has thickened leaflets. There is trace mitral valve regurgitation. The mitral valve annulus is moderately calcified. Tricuspid Valve There is mild tricuspid valve regurgitation. Pericardium/Pleural Pericardium is normal in appearance with no evidence for significant pericardial effusion. Inferior Vena Cava Normal inferior vena cava with >50% collapse upon inspiration consistent with normal right atrial pressure, 3 mmHg. Aorta The aortic root size at the sinus of Valsalva is normal. Left Ventricular Outflow Tract Name Value Normal LVOT 2D LVOT Diameter 1.98 cm LVOT Doppler LVOT Peak Gradient 3 mmHg LVOT Mean Gradient 1 mmHg LVOT VTI 17.62 cm LVOT VTI/AV VTI Ratio 0.76 LVOT Stroke Volume 54.30 ml LVOT CO 5.71 l/min LVOT CI 2.48 L/min/m2 Pulmonic Valve Name Value Normal SANTIAGO Fonseca
[2023-09-10] MEDS: ZOLPIDEM TARTRATE (*CRX) 5 MG TABLET 10 MG PO ×2 (01:09→21:21)
[2023-09-10] MEDS: IPRATROPIUM BR 0.02% INH SOLN 0.5 MG/2.5 ML VIAL INHALATION ×4 (01:42→20:38)
[2023-09-10] MEDS: ALBUTEROL SULFATE NEB 2.5 MG/3 ML INH INHALATION ×4 (01:57→20:38)
[2023-09-10] MEDS: ACETAMINOPHEN 325 MG TABLET 650 MG PO ×2 (06:30→16:55)
[2023-09-10] MEDS: diazePAM (*CRX) 2 MG TABLET PO (06:31)
[2023-09-10 07:00] LABS: Hematocrit 45.1 % (42.0-52.0); Mean Corpuscular HGB Conc 33.3 g/dl (32-36); Mean Corpuscular Hemoglobin 30.1 pg (26-34); Mean Corpuscular Volume 90.4 fl (80-100); Mean Platelet Volume 10.4 fl (7.4-10.4); Platelet Count Result 480 k/mm3 (150-375); Red Blood Count 4.99 M/mm3 (4.6-6.20); Red Cell Distribution Width 13.3 % (11.5-14.5); White Blood Count 16.8 K/mm3 (4.5-10.0)
[2023-09-10 07:14] LABS: Magnesium 1.6 mg/dL (1.6-2.3)
[2023-09-10 07:55] LABS: Glucose Point of Care 253 mg/dl (65-105)
[2023-09-10] MEDS: FLUTICASONE/SALMETEROL 115-21 MCG INHALER 1 PUFF 2 PUFF INHALATION ×2 (08:01→20:38)
[2023-09-10] MEDS: PANTOPRAZOLE 40 MG TABLET PO (08:37)
[2023-09-10] MEDS: PRAVASTATIN SODIUM 20 MG TABLET 40 MG PO (08:37)
[2023-09-10] MEDS: PREGABALIN (*CRX) 50 MG CAPSULE 100 MG PO ×2 (08:37→21:21)
[2023-09-10] MEDS: LORATADINE 10 MG TABLET PO (08:37)
[2023-09-10] MEDS: MAGNESIUM OXIDE 400 MG TABLET PO ×2 (08:37→16:56)
[2023-09-10] MEDS: APIXABAN 5 MG TABLET PO ×2 (08:37→21:23)
[2023-09-10] MEDS: VENLAFAXINE HCL 37.5 MG TABLET PO ×2 (08:37→21:21)
[2023-09-10] MEDS: METOPROLOL SUCCINATE EXT REL 25 MG TABCR PO ×2 (08:39→21:21)
[2023-09-10] MEDS: INSULIN ASPART (*BKC) 100 UNITS/ML SUB-Q ×3 (08:40→21:26)
[2023-09-10] MEDS: INSULIN GLARGINE (*BKC) 100 UNITS/ML 40 UNITS SUB-Q (08:41)
[2023-09-10] MEDS: PERFLUTREN LIPID MICROSPHERES 1.5 ML VIAL DILUTED TO 10 ML TOTAL VOLUME IV PUSH (11:28)
[2023-09-10 11:35] LABS: Troponin I < 0.012 ng/mL (0.000-0.034)
[2023-09-10] MEDS: FAMOTIDINE 20 MG/2 ML VIAL IV PUSH (12:06)
[2023-09-10] MEDS: MICONAZOLE NITRATE 2% CREAM 30 GM TUBE 1 APPLIC TOPICAL ×2 (12:06→21:24)
[2023-09-10] MEDS: MAGNESIUM HYDROXIDE SUSP 30 ML UDC PO (12:07)
--- NOTE | 2023-09-10 12:15 | PM.IMPN ---
Progress Note: A&P Assessment and Plan (1) Chest pain: Qualifiers: Chest pain type: chest pain on breathing Qualified Code(s): R07.1 - Chest pain on breathing Code(s): R07.9 - Chest pain, unspecified Status: Acute Assessment and Plan: likely musculoskeletal cardiology evaluated and reckons the same ECHO no concerning findings Troponin x2 negative; repeat x1 now. EKG shows ventricular trigeminy without acute ST segment changes compared to prior tracings. Continue telemetry overnight. Cardiology signed off (2) Epigastric pain: Code(s): R10.13 - Epigastric pain Status: Acute Assessment and Plan: Symptoms seem more consistent with indigestion (belching, burning discomfort, epigastric tenderness). GI cocktail in the ED was of some benefit. CT of the abdomen pelvis was without acute findings; lipase negative. contiue protonix discharge on Protonix (3) Chronic diastolic heart failure: Code(s): I50.32 - Chronic diastolic (congestive) heart failure Status: Acute Assessment and Plan: Appears clinically compensated. (4) Chronic anticoagulation: Code(s): Z79.01 - correction (current) use of anticoagulants Status: Acute Assessment and Plan: Continue apixaban for stroke prophylaxis. (5) Insulin dependent diabetes mellitus: Status: Chronic Assessment and Plan: Random glucose this morning was 200, A1c in December was 7.2%. Continue basal insulin. Initiate sliding scale insulin, Accu-Cheks, and hypoglycemic protocol. (6) Myelofibrosis: Code(s): D75.81 - Myelofibrosis Status: Acute Assessment and Plan: Status post splenectomy. Chronic and stable leukocytosis. Plan Awaiting PT/OT eval continue home meds DVt prophylaxis on Eliquis Subjective Date/time seen: 09/10/23 12:15 Review of Systems Review of Systems: patient stated that chest pain was pressure and then change to heartburn He was evaluated by cardiology and noted to be musculoskeletal etiology, ECHO EF normal, mild diastolic dysfunction started on Protonix, awaiting PT/OT for possible discharge tomorrow Exam Narrative: General:???Chronically ill, nontoxic-appearing male sitting up in bed. Weight: 108.3 kg. BMI: 37.4. HEENT: ?PERRL, EOMI. Sclera anicteric. Tacky mucous membranes. Neck:??Supple. Respiratory:??Respirations are nonlabored and lungs are clear to auscultation. Cardiovascular:??Regular rate and rhythm with S1-S2. Rare ectopy. Chest: Mild tenderness to palpation over the lower-midsternal region. Gastrointestinal:??Abdomen is soft, protuberant, and nondistended with positive bowel sounds. He is somewhat tender to palpation epigastric region. No guarding or rebound tenderness. Skin:??Warm and dry. Chronic skin changes of the lower legs; left lower leg is Pineda wrapped which he did not want me to remove at this time. No warmth or redness appreciated above the area. Extremities:??No cyanosis or clubbing. Status post right forefoot amputation. Neurological:??Alert and oriented.? Cranial nerves 2-12 are grossly intact. Chronic left-sided weakness.? Left hand is contracted. Psychiatric:?Cooperative with appropriate mood. Objective Data Vital Signs Vital Signs: Vital Signs - 24 hr 09/09/23 13:57 09/09/23 14:00 09/09/23 16:00 Temperature 97.2 F L Pulse Rate 102 H 95 Respiratory Rate 16 Blood Pressure 134/59 L Pulse Oximetry 97 96 Oxygen Delivery Nasal Cannula Oxygen Flow Rate 3 Fraction of Inspired Oxygen 32 09/09/23 21:26 09/09/23 20:00 09/10/23 01:45 Temperature 97.5 F L Pulse Rate 95 79 Respiratory Rate 20 20 Blood Pressure 165/73 H Pulse Oximetry 97 97 Oxygen Delivery Nasal Cannula Oxygen Flow Rate 3 Fraction of Inspired Oxygen 09/10/23 01:59 09/09/23 20:00 09/10/23 00:00 Temperature Pulse Rate 84 103 H 97 Respiratory Rate 20 Bloo
--- NOTE | 2023-09-10 12:18 | IVDEFINITY ---
Prior to administration of IV Definity the patient was educated on the risks and benefits of the imaging enhancing agent including potential adverse side effects. The patient verbalized understanding. Allergies were verified. No exclusion criteria were identified and at least one of the following inclusion criteria were met: 1) physician request, 2) patient technically difficult to image (per the [place] [employer] guidelines of two or more segments not discernable within the apical view), or 3) questionable left ventricular function. ?
[2023-09-10 12:21] LABS: Glucose Point of Care 241 mg/dl (65-105)
--- NOTE | 2023-09-10 12:38 | PC.NURSE ---
Pt MD came to this RN stating that pt had c/o of chest pressure. Received verbal order to give one time dose of nitro 0.4mg SL. When this RN went to administer nitro, pt denies any c/o chest pain or pressure, just SOB r/t all the excitement of transferring back and forth to the commode. Pt given milk of mag for constipation. MD made aware of non-administration of nitro. Continuing to monitor pt for symptoms of chest pain/pressure.
--- NOTE | 2023-09-10 13:08 | PM.CNCAR ---
Assessment and Plan Assessment and plan (1) Chest pain: Qualifiers: Chest pain type: chest pain on breathing Qualified Code(s): R07.1 - Chest pain on breathing Code(s): R07.9 - Chest pain, unspecified Status: Acute Assessment and Plan: EKG without ischemic changes. Troponins are negative x 4. Echocardiogram with preserved LVEF, no significant valvular abnormalities. Patient has clear reproducible left chest wall pain that elicits the same type of pain he has been feeling, consistent with musculoskeletal chest pain. He does have old healed left rib fractures. A nuclear stress test has been ordered by primary team, however, given noncardiac musculoskeletal chest wall pain, no indication for stress testing at this time. Recommend treatment of musculoskeletal chest wall pain as per the primary team. Patient to follow up with his primary human resources receptionist after hospital discharge. Cardiology will sign off at this time. Please call us back if needed. History of Present Illness History of Present Illness Consult date/time: 09/10/23 13:08 Requesting physician: Nahed Vargas MD Consult reason: chest pain Reason For Visit: Intractable Vomiting Narrative: We are consulted for chest pain. This is a 63 year old male with history of stroke, insulin-dependent diabetes, hypertension, pulmonary embolism, myelofibrosis s/p splenectomy, chronic kidney disease, anxiety who presented from his senior care for evaluation of chest pain. Patient reports he has left lower anterior chest wall pain that has been occurring for the past couple of days. Not associated with other symptoms. He states tension makes it worse. He does have an outpatient human resources receptionist, Dr. Sherman at [facility]. Workup shows EKG with sinus rhythm, ventricular trigeminy, no ischemic changes. Troponins are negative x 4. CXR with no acute findings, shows multiple healed left rib fractures. Review of Systems Review of Systems: All systems reviewed & are unremarkable except as noted in HPI and below (HPI) [facility] Past Medical History Medical History Anemia Anxiety Benign prostatic hyperplasia Cerebrovascular accident (2014) Chronic anticoagulation Chronic kidney disease Claustrophobia Depression Diastolic heart failure Echo 08/2022: Mild concentric hypertrophy, systolic function 74%, grade 2 diastolic dysfunction, mild left atrial enlargement, right ventricle not well visualized but grossly normal Enterobacter sepsis Secondary to UTI. Fracture of proximal end of left humerus Left cervical radiculopathy Migraines MRSA infection Myelofibrosis Neuropathy Obstructive sleep apnea Noncompliant with CPAP Peripheral vascular disease Pulmonary embolism (01/2020) Type 2 diabetes mellitus Surgical History Surgical History Amputation of right forefoot Amputation of right great toe History of cholecystectomy (1985) History of hernia repair History of splenectomy (08/2019) Left great toe amputee (04/2020) Partial Family History Family History Father , 75 Congestive heart failure Mother , 74 Brain bleed Sibling , Sister Cancer Dementia Social History Social History Social History: Surrogate medical decision maker: Gloria Esparza (sister) Code status: Full code. Smoking packs per day: 0.75 Smoking cigarettes per day: 15.0 Years smoked: 40 Smoking pack-years: 30.00 Smoking status: Former smoker Tobacco type: cigars Smoking end date: 10/18/94 Alcohol intake: current Drinks per week: 1 Alcohol use details: 1/month Substance use: former Substance use type: does not use Lack of Transportation: YES Lack of Food: Never True Current Housing: I Do Not Have Housing Concerned About F
--- NOTE | 2023-09-10 15:51 | PM.IMPN ---
Progress Note: A&P Assessment and Plan (1) Chest pain: Qualifiers: Chest pain type: chest pain on breathing Qualified Code(s): R07.1 - Chest pain on breathing Code(s): R07.9 - Chest pain, unspecified Status: Acute Assessment and Plan: Patient presented with burning discomfort in the substernal region associated with nausea, vomiting, sweats. Initially thought due to GERD as it improved with GI cocktail and has not returned. Patient is concerned it may be cardiac; no known history of CAD. Troponin x2 negative; repeat x1 now. EKG shows ventricular trigeminy without acute ST segment changes compared to prior tracings. Continue telemetry overnight. Consider cardiology consult depending on course. (2) Epigastric pain: Code(s): R10.13 - Epigastric pain Status: Acute Assessment and Plan: Symptoms seem more consistent with indigestion (belching, burning discomfort, epigastric tenderness). GI cocktail in the ED was of some benefit. CT of the abdomen pelvis was without acute findings; lipase negative. Continue Pepcid 20 mg b.i.d. which was started in the ER. (3) Chronic diastolic heart failure: Code(s): I50.32 - Chronic diastolic (congestive) heart failure Status: Acute Assessment and Plan: Appears clinically compensated. (4) Chronic anticoagulation: Code(s): Z79.01 - supervisor intermediates (current) use of anticoagulants Status: Acute Assessment and Plan: Continue apixaban for stroke prophylaxis. (5) Insulin dependent diabetes mellitus: Status: Chronic Assessment and Plan: Random glucose this morning was 200, A1c in December was 7.2%. Continue basal insulin. Initiate sliding scale insulin, Accu-Cheks, and hypoglycemic protocol. (6) Myelofibrosis: Code(s): D75.81 - Myelofibrosis Status: Acute Assessment and Plan: Status post splenectomy. Chronic and stable leukocytosis. Plan Patient was seen and examined in his room. Labs, imaging, EKG, and all reports were personally reviewed. Clinician, nursing, and ancillary notes on the chart were reviewed. Workup and plan were discussed with the patient and questions were solicited and answered to satisfaction. Patient's medical management will be taken over by hospitalist team in a.m. Home medications will be reviewed and resumed as appropriate. Subjective Date/time seen: 09/10/23 15:51 Interval history: still complained of chest which cardiology evaluated and noted it was musculoskeletal Review of Systems Review of Systems: Twelve systems were reviewed. Left lower leg is wrapped and he reports having a wound on the farley which he did not want me to evaluate at this time. Reports that it is unchanged and nondraining. No fever, chills, or sweats. No cold or flu symptoms. No history of ulcers to his knowledge. Except as documented, all other systems were reviewed and are negative. Exam Narrative: General:???Chronically ill, nontoxic-appearing male sitting up in bed. Weight: 108.3 kg. BMI: 37.4. HEENT: ?PERRL, EOMI. Sclera anicteric. Tacky mucous membranes. Neck:??Supple. Respiratory:??Respirations are nonlabored and lungs are clear to auscultation. Cardiovascular:??Regular rate and rhythm with S1-S2. Rare ectopy. Chest: Mild tenderness to palpation over the lower-midsternal region. Gastrointestinal:??Abdomen is soft, protuberant, and nondistended with positive bowel sounds. He is somewhat tender to palpation epigastric region. No guarding or rebound tenderness. Skin:??Warm and dry. Chronic skin changes of the lower legs; left lower leg is Pineda wrapped which he did not want me to remove at this time. No warmth or redness appreciated above the area. Extremities:??No cyanosis or clubbing. Status post right forefoot amputation. Neurological:??Alert and oriented.? Cranial nerves 2-12 are grossly intact. Chronic left-sided weakness.? Left hand is con
[2023-09-10 16:36] LABS: Glucose Point of Care 254 mg/dl (65-105)
[2023-09-10] MEDS: MONTELUKAST SODIUM 10 MG TABLET PO (21:21)
[2023-09-10] MEDS: PANTOPRAZOLE SODIUM IV 40 MG VIAL IV PUSH (21:23)
[2023-09-10] MEDS: SODIUM CHLORIDE 0.9% INJ 10 ML ×2 (21:23→21:24)
[2023-09-10 21:49] LABS: Glucose Point of Care 219 mg/dl (65-105)
--- NOTE | 2023-09-10 21:58 | PC.NURSE ---
pt refused iv pepcid and stated to RN that he has no heartburn and has not had any heartburn
[2023-09-11] VITALS (8 sets, daily range): BP systolic 152; BP diastolic 73; PULSE 88–105; RESP 18–20; TEMP 36.6; O2SAT 95–96
[2023-09-11 06:57] LABS: Basophils Absolute Auto 0.1 K/mm3 (0.0-0.1); Basophils Percent Auto 0.9 % (0.2-1.2); Eosinophils Absolute Auto 0.4 K/mm3 (0-0.3); Eosinophils Percent Auto 2.4 % (0-4.4); Hematocrit 47.2 % (42.0-52.0); Hemoglobin 14.7 g/dL (14.0-18.0); Immature Granulocyte Absolute 0.18 K/mm3 (0.00-0.031); Immature Granulocyte Percent A 1.1 % (0-0.5); Lymphocytes Absolute Auto 2.79 K/mm3 (0.9-3.2); Lymphocytes Percent Auto 17.2 % (18.3-44.2); Mean Corpuscular HGB Conc 31.1 g/dl (32-36); Mean Corpuscular Hemoglobin 30.4 pg (26-34); Mean Corpuscular Volume 97.5 fl (80-100); Mean Platelet Volume 10.7 fl (7.4-10.4); Monocytes Absolute Auto 2.2 K/mm3 (0.1-0.6); Monocytes Percent Auto 13.3 % (2.6-8.5); Neutrophils Absolute Auto 10.6 K/mm3 (1.3-6.7); Neutrophils Percent Auto 65.1 % (45.5-73.1); Platelet Count Result 425 k/mm3 (150-375); Red Blood Count 4.84 M/mm3 (4.6-6.20); Red Cell Distribution Width 13.4 % (11.5-14.5); White Blood Count 16.2 K/mm3 (4.5-10.0)
[2023-09-11 07:03] LABS: Lactic Acid Reflex 1.9 mmol/L (0.7-2.0)
[2023-09-11 07:04] LABS: Alanine Aminotransferase 17 U/L (6-50); Albumin Level 3.6 g/dL (3.5-5.1); Alkaline Phosphatase 71 U/L (38-126); Anion Gap 10 mmol/L (8-16); Aspartate Amino Transferase 24 U/L (17-59); Bilirubin,Total 0.9 mg/dL (0.2-1.3); Blood Urea Nitrogen 19 mg/dL (9-20); Calcium 9.4 mg/dL (8.4-10.2); Carbon Dioxide 25 mmol/L (22-30); Chloride 99 mmol/L (98-107); Estimated CRCL calculation 77 ml/min; Estimated Glomerular Filt Rate > 60; Glucose 175 mg/dL (65-110); Magnesium 2.1 mg/dL (1.6-2.3); Sodium 134 mmol/L (137-145)
[2023-09-11] MEDS: IPRATROPIUM BR 0.02% INH SOLN 0.5 MG/2.5 ML VIAL INHALATION (08:07)
[2023-09-11] MEDS: ALBUTEROL SULFATE NEB 2.5 MG/3 ML INH INHALATION (08:07)
[2023-09-11 08:20] LABS: Glucose Point of Care 157 mg/dl (65-105)
[2023-09-11] MEDS: MAGNESIUM OXIDE 400 MG TABLET PO (08:22)
[2023-09-11] MEDS: PREGABALIN (*CRX) 50 MG CAPSULE 100 MG PO (08:22)
[2023-09-11] MEDS: metOLazone 2.5 MG TABLET BY MOUTH (08:22)
[2023-09-11] MEDS: VENLAFAXINE HCL 37.5 MG TABLET PO (08:22)
[2023-09-11] MEDS: PRAVASTATIN SODIUM 20 MG TABLET 40 MG PO (08:23)
[2023-09-11] MEDS: METOPROLOL SUCCINATE EXT REL 25 MG TABCR PO (08:23)
[2023-09-11] MEDS: APIXABAN 5 MG TABLET PO (08:23)
[2023-09-11] MEDS: LORATADINE 10 MG TABLET PO (08:23)
[2023-09-11] MEDS: FAMOTIDINE 20 MG/2 ML VIAL IV PUSH (08:23)
[2023-09-11] MEDS: PANTOPRAZOLE SODIUM IV 40 MG VIAL IV PUSH (08:23)
[2023-09-11] MEDS: INSULIN GLARGINE (*BKC) 100 UNITS/ML 40 UNITS SUB-Q (08:23)
[2023-09-11] MEDS: diazePAM (*CRX) 2 MG TABLET PO (08:23)
[2023-09-11] MEDS: MICONAZOLE NITRATE 2% CREAM 30 GM TUBE 1 APPLIC TOPICAL (08:24)
[2023-09-11 12:07] LABS: Glucose Point of Care 237 mg/dl (65-105)
[2023-09-11] MEDS: INSULIN ASPART (*BKC) 100 UNITS/ML SUB-Q (12:32)
--- NOTE | 2023-09-11 13:00 | PM.DS ---
DS: Admitting Diagnosis Discharge Date 09/11/23 Admitting Diagnosis chest pain DS: Discharge Diagnosis Discharge Diagnosis (1) Chest pain: Qualifiers: Chest pain type: chest pain on breathing Qualified Code(s): R07.1 - Chest pain on breathing Code(s): R07.9 - Chest pain, unspecified Status: Acute Assessment and Plan: likely musculoskeletal cardiology evaluated and signed off without need for further eval ECHO no concerning findings Troponins negative EKG shows ventricular trigeminy without acute ST segment changes compared to prior tracings. (2) Epigastric pain: Code(s): R10.13 - Epigastric pain Status: Acute Assessment and Plan: consistent with indigestion (belching, burning discomfort, epigastric tenderness). tolerating regular diet without issue CT of the abdomen pelvis was without acute findings; lipase negative. will discharge on Protonix daily (3) Chronic diastolic heart failure: Code(s): I50.32 - Chronic diastolic (congestive) heart failure Status: Chronic Assessment and Plan: euvolemic on exam (4) Chronic anticoagulation: Code(s): Z79.01 - bed bug exterminator (current) use of anticoagulants Status: Chronic Assessment and Plan: continue home Eliquis (5) Insulin dependent diabetes mellitus: Status: Chronic Assessment and Plan: resume home regimen DS: Summary Hospital Course Hospital Course: Patient is a 63 YO male with multiple medical problems including history of stroke, insulin-dependent diabetes, hypertension, orthostatic hypotension, pulmonary embolism, myelofibrosis status post splenectomy, chronic kidney disease, anxiety, and other comorbidities admitted via EMS from [facility] for evaluation of chest pain. He has not had recurrent chest pain but he does have some reproducible discomfort on palpation epigastric region on admission. CMP and CBC were unremarkable. Troponins negative. EKG showed ventricular trigeminy but is otherwise unchanged compared to prior tracings. Chest x-ray and CT of the abdomen and pelvis showed no acute findings. Cardiology consulted and cleared without need for further evaluation. He was admitted to the medical floor with ?intractable nausea? however he has not had any further episodes of vomiting and has tolerate regular diet. He denies fever, chills, sweats, lightheadedness, dizziness, active chest pain, pleuritic pain, palpitations, sensations of racing heart, orthopnea, paroxysmal nocturnal dyspnea, lower extremity edema, hematemesis, melena, hematochezia, and diarrhea. His symptoms were likely due to GERD, and is stable for return to [facility]. He is not excited to go back there as he feels the food is bad and they don't take care of him. Will discharge on Protonix to continue and encourage to follow up with PCP. Status at Discharge Functional status at discharge: uses cane/walker Overall status at discharge: patient is back to baseline Time Spent with Patient Time attestation: Total time spent providing and/or coordinating discharge services: Exam Narrative: General: Chronically ill, nontoxic-appearing male sitting up in bed. HEENT: PERRL, EOMI. Neck: Supple. Respiratory: Respirations are nonlabored and lungs are clear to auscultation. Cardiovascular: RRR with S1-S2. Gastrointestinal: Abdomen is soft, non-tender, and nondistended with positive bowel sounds. No guarding or rebound tenderness. Skin: Warm and dry. Chronic skin changes of the lower legs; left lower leg is Pineda wrapped which he did not want me to remove at this time. No warmth or redness appreciated above the area. Extremities: No cyanosis or clubbing. Status post right forefoot amputation. Neurological: Alert and oriented x3. Cranial nerves 2-12 are grossly intact. Chronic left-sided weakness. Left hand is contracted. Psychiatric: Cooperative with appropriate mood. DS: Data D
[2023-09-11 13:13] LABS: SARS-CoV-2 RNA PCR Negative (Negative)
--- NOTE | 2023-09-11 14:27 | PCRCNOTE ---
RT entered room to give 1400 neb tx and RN informed RT that pt had discharged home.
== END 2023-09-11 14:05 ==
LOC: ANHED 04:48 → ANH3MEDSUR 08:30
PROVIDERS: Internal Medicine; Nurse Practitioner; Physician Assistant; Admitting Provider Internal Medicine; Emergency Provider Student in an Organized Health Care Education/Training Program; PCP Nurse Practitioner Family; Visit Provider Internal Medicine
DX: R07.1 Chest pain on breathing (principal); R10.13 Epigastric pain; F41.0 Panic disorder [episodic paroxysmal anxiety]; Z20.822 Contact with and (suspected) exposure to COVID-19; J40 Bronchitis, not specified as acute or chronic; Z99.81 Dependence on supplemental oxygen; F32.A Depression, unspecified; H04.129 Dry eye syndrome of unspecified lacrimal gland; N40.0 Benign prostatic hyperplasia without lower urinary tract symptoms; I13.0 Hypertensive heart and chronic kidney disease with heart failure and stage 1 through stage 4 chronic kidney disease, or unspecified chronic kidney disease; I50.32 Chronic diastolic (congestive) heart failure; E11.22 Type 2 diabetes mellitus with diabetic chronic kidney disease; N18.9 Chronic kidney disease, unspecified; E11.65 Type 2 diabetes mellitus with hyperglycemia; D75.81 Myelofibrosis; Z90.81 Acquired absence of spleen; E11.40 Type 2 diabetes mellitus with diabetic neuropathy, unspecified; E11.51 Type 2 diabetes mellitus with diabetic peripheral angiopathy without gangrene; I95.9 Hypotension, unspecified; G47.33 Obstructive sleep apnea (adult) (pediatric); R19.7 Diarrhea, unspecified; R94.31 Abnormal electrocardiogram [ECG] [EKG]; G47.00 Insomnia, unspecified; Z87.891 Personal history of nicotine dependence; Z86.73 Personal history of transient ischemic attack (TIA), and cerebral infarction without residual deficits; Z86.711 Personal history of pulmonary embolism; Z79.01 Long term (current) use of anticoagulants; Z79.51 Long term (current) use of inhaled steroids; Z79.82 Long term (current) use of aspirin; Z79.4 Long term (current) use of insulin; Z79.85 Long-term (current) use of injectable non-insulin antidiabetic drugs; Z79.899 Other long term (current) drug therapy; Z82.49 Family history of ischemic heart disease and other diseases of the circulatory system
CPT/HCPCS: 36415; 71046; 74176; 80053; 81001; 82948; 83036; 83605; 83690; 83735; 83880; 84484; 85025; 85027; 85610; 85730; 86850; 86900; 86901; 87635; 87636; 93005; 94640; 96361; 96374; 96375; 96376; 97161; 97165; 99285; A9270; C8929; C9113; G0378; J1630; J1815; J2405; J3475; J7030; J7120; Q9957

== ENCOUNTER 2023-09-30 20:00 | Emergency (ER) | payer MEDICARE, MEDICAID, SELFPAY ==
--- NOTE | ~2023-09-30 | XR_ITS ---
Portable chest x-ray Comparison: 09/09/2023 Clinical History: Chest pain Findings: There is probable mild central congestive change with probable minimal interstitial edema. No pleural effusion or pneumothorax. Cardiomediastinal silhouette is stable. Left-sided rib fractur e deformities are similar to prior exam.. Impression: Central congestive change with probable minimal interstitial edema. Correlate clinically. Left rib fracture deformities are similar to prior exam. Reviewed, dictated and finalized at [facility]. [employer]APING AND GROUNDSKEEPING LABORER Impression: Central congestive change with probable minimal interstitial edema. Correlate c linically. Left rib fracture deformities are similar to prior exam.
--- NOTE | 2023-09-30 20:01 | ECG_ITS ---
Measurements Intervals Cope Rate: 106 P: 29 ID: [id number] QRS: 8 QRSD: 93 T: 61 QT: 324 QTc: 431 Interpretive Statements SINUS TACHYCARDIA LOW-VOLTAGE QRS MINOR T-WAVE ABNORMALITY ABNORMAL RHYTHM ECG COMPARED TO ECG 09/09/2023 03:49:10 PVCS ARE RESOLVED Electronically Signed On 10-01-2023 13:58:25 ELECTRONICS TECHNICIAN APPRENTICE by Jeremías Sellers M.D.
[2023-09-30 20:04] VITALS: BP 173/65; PULSE 109; RESP 18; TEMP 36.4; O2SAT 96
[2023-09-30 20:52] LABS: Influenza A QL RT-PCR Negative (Negative); Influenza B QL RT-PCR Negative (Negative); SARS-CoV-2 RNA PCR Negative (Negative)
[2023-09-30 21:50] VITALS: BP 162/98; PULSE 117; RESP 18; TEMP 36.6; O2SAT 96
--- NOTE | 2023-10-01 00:34 | ED.GENADULT ---
HPI - General Adult General Chief complaint: Anxiety Stated complaint: anxiety/chest pain Time Seen by Provider: 10/01/23 00:08 History of Present Illness HPI narrative: this is a 63-year-old gentleman presents emerged department with chief complaint of I am unhappy with my current living situation at the shelter and they are not changing my pants and may remain has COVID and I have now started having pain in my chest. The patient has been seen multiple times in the emergency department and was recently admitted to the hospital for chest pain. Related Data Home Medications Medication Instructions Recorded Confirmed budesonide-formoterol HFA 160 2 puff inhalation Q12H 11/08/20 09/09/23 mcg-4.5 mcg/actuation aerosol inhaler (Symbicort) cholecalciferol (vitamin D3) 1,250 1,250 mcg PO WEEKLY 11/08/20 09/09/23 mcg (50,000 unit) capsule montelukast 10 mg tablet 10 mg PO HS 11/08/20 09/09/23 venlafaxine 37.5 mg tablet 37.5 mg PO Q12H 04/11/21 09/09/23 pregabalin 100 mg capsule (Lyrica) 100 mg PO Q12H 07/17/22 09/09/23 magnesium oxide 400 mg (241.3 mg 400 mg PO BID 08/26/22 09/09/23 magnesium) tablet zolpidem 10 mg tablet (Ambien) 10 mg PO HS PRN Insomnia 12/24/22 09/09/23 metformin 1,000 mg tablet 1,000 mg PO Q12H 01/11/23 09/09/23 pravastatin 40 mg tablet 40 mg PO DAILY 01/11/23 09/09/23 insulin aspart U-100 100 unit/mL 5 unit subcut ACINSULIN 05/30/23 09/09/23 (3 mL) subcutaneous pen (Novolog FlexPen U-100 Insulin aspart) insulin detemir U-100 100 unit/mL 40 unit subcut DAILY 05/30/23 09/09/23 (3 mL) subcutaneous pen (Levemir FlexPen) torsemide 20 mg tablet 20 mg PO DAILY PRN Swellng 05/30/23 09/09/23 Imodium A-D 2 mg PO BID PRN Diarrhea 09/09/23 09/09/23 Refresh 0.5 % EACH EYE BID PRN Dry Eye(S) 09/09/23 09/09/23 acetaminophen 325 mg PO Q4H PRN minor pain and 09/09/23 09/09/23 fever cetirizine 10 mg PO QAM 09/09/23 09/09/23 dulaglutide 0.75 mg/0.5 mL 0.5 mg subcut WEEKLY 09/09/23 09/09/23 subcutaneous pen injector (Trulicity) lactase 9,000 units PO AC 09/09/23 09/09/23 metolazone 2.5 mg tablet See Rx Instructions .Route .COMPLEX 09/09/23 09/09/23 mupirocin 2 % topical ointment 2 applic topical BID 09/09/23 09/09/23 Allergies Allergy/AdvReac Type Severity Reaction Status Date / Time naproxen Allergy Intermediate SWELLING Verified 05/30/23 10:06 cefepime Allergy Unknown Blister Verified 05/30/23 10:06 iohexol Allergy Unknown Unknown Verified 05/30/23 10:06 [From contrast - CT, X-RAY] iodine Allergy Other Verified 05/30/23 10:06 vancomycin AdvReac Diarrhea Verified 05/30/23 10:06 Review of Systems Review of Systems: A 10 system review of systems was completed on the patient and is negative except for what is stated in the HPI. Nursing and ancillary documentation was reviewed. [facility] Past Medical History Medical History Anemia Anxiety Benign prostatic hyperplasia Cerebrovascular accident (2014) Chronic anticoagulation Chronic kidney disease Claustrophobia Depression Diastolic heart failure Echo 08/2022: Mild concentric hypertrophy, systolic function 74%, grade 2 diastolic dysfunction, mild left atrial enlargement, right ventricle not well visualized but grossly normal Enterobacter sepsis Secondary to UTI. Fracture of proximal end of left humerus Left cervical radiculopathy Migraines MRSA infection Myelofibrosis Neuropathy Obstructive sleep apnea Noncompliant with CPAP Peripheral vascular disease Pulmonary embolism (01/2020) Type 2 diabetes mellitus Surgical History Surgical History Amputation of right forefoot Amputation of right great toe History of cholecystectomy (1985) History of hernia repair History of splenectomy (08/2019) Left great toe amputee (04/2020) Partial Family History Family History (Reviewed 10/01/23 @ 00:35 by
[2023-10-01 00:42] LABS: Basophils Absolute Auto 0.2 K/mm3 (0.0-0.1); Basophils Percent Auto 0.9 % (0.2-1.2); Eosinophils Absolute Auto 0.9 K/mm3 (0-0.3); Eosinophils Percent Auto 5.1 % (0-4.4); Hemoglobin 13.8 g/dL (14.0-18.0); Immature Granulocyte Absolute 0.23 K/mm3 (0.00-0.031); Immature Granulocyte Percent A 1.4 % (0-0.5); Lymphocytes Absolute Auto 2.42 K/mm3 (0.9-3.2); Lymphocytes Percent Auto 14.3 % (18.3-44.2); Mean Corpuscular HGB Conc 33.7 g/dl (32-36); Mean Corpuscular Hemoglobin 30.1 pg (26-34); Mean Corpuscular Volume 89.5 fl (80-100); Mean Platelet Volume 10.5 fl (7.4-10.4); Monocytes Absolute Auto 1.5 K/mm3 (0.1-0.6); Neutrophils Absolute Auto 11.7 K/mm3 (1.3-6.7); Neutrophils Percent Auto 69.3 % (45.5-73.1); Nucleated Red Blood Cells Perc 0.2 % (0.0-0.2); Platelet Count Result 463 k/mm3 (150-375); Red Blood Count 4.58 M/mm3 (4.6-6.20); Red Cell Distribution Width 13.2 % (11.5-14.5); White Blood Count 16.9 K/mm3 (4.5-10.0)
[2023-10-01 00:51] LABS: Lactic Acid Reflex 1.6 mmol/L (0.7-2.0)
[2023-10-01 00:52] LABS: Alanine Aminotransferase 22 U/L (6-50); Albumin Level 3.5 g/dL (3.5-5.1); Alkaline Phosphatase 129 U/L (38-126); Anion Gap 4 mmol/L (8-16); Aspartate Amino Transferase 29 U/L (17-59); Bilirubin,Total 0.4 mg/dL (0.2-1.3); Blood Urea Nitrogen 26 mg/dL (9-20); Calcium 9.9 mg/dL (8.4-10.2); Carbon Dioxide 31 mmol/L (22-30); Chloride 98 mmol/L (98-107); Estimated CRCL calculation 84 ml/min; Estimated Glomerular Filt Rate > 60; Glucose 290 mg/dL (65-110); Lipase 84 U/L (23-300); Potassium 5.1 mmol/L (3.4-5.0); Sodium 133 mmol/L (137-145)
[2023-10-01 00:56] LABS: Prothrombin Time 13.3 Seconds (11.1-14.7)
[2023-10-01 00:57] LABS: Partial Thromboplastin Time 36.1 SECONDS (22.3-36.8)
[2023-10-01 01:06] LABS: Troponin I < 0.012 ng/mL (0.000-0.034)
[2023-10-01 03:36] VITALS: BP 120/83; PULSE 63; RESP 20; O2SAT 98
[2023-10-01 04:32] VITALS: BP 139/85; PULSE 93; RESP 22; O2SAT 95
== END 2023-10-01 04:33 ==
PROVIDERS: Student in an Organized Health Care Education/Training Program; Emergency Provider Emergency Medicine; PCP Nurse Practitioner Family
DX: R07.89 Other chest pain (principal); Z20.822 Contact with and (suspected) exposure to COVID-19; E11.22 Type 2 diabetes mellitus with diabetic chronic kidney disease; N18.9 Chronic kidney disease, unspecified; I50.30 Unspecified diastolic (congestive) heart failure; E11.40 Type 2 diabetes mellitus with diabetic neuropathy, unspecified; I73.9 Peripheral vascular disease, unspecified; E11.51 Type 2 diabetes mellitus with diabetic peripheral angiopathy without gangrene; N40.0 Benign prostatic hyperplasia without lower urinary tract symptoms; G47.33 Obstructive sleep apnea (adult) (pediatric); Z86.73 Personal history of transient ischemic attack (TIA), and cerebral infarction without residual deficits; Z86.14 Personal history of Methicillin resistant Staphylococcus aureus infection; Z87.891 Personal history of nicotine dependence; Z89.431 Acquired absence of right foot; Z90.49 Acquired absence of other specified parts of digestive tract; Z90.81 Acquired absence of spleen; Z89.412 Acquired absence of left great toe; Z79.85 Long-term (current) use of injectable non-insulin antidiabetic drugs; Z79.4 Long term (current) use of insulin; Z79.01 Long term (current) use of anticoagulants; R00.0 Tachycardia, unspecified; R94.31 Abnormal electrocardiogram [ECG] [EKG]
CPT/HCPCS: 36415; 71045; 80053; 83605; 83690; 84484; 85025; 85610; 85730; 87636; 93005; 99284

== ENCOUNTER 2023-10-03 04:36 | Emergency (ER) | payer MEDICARE, MEDICAID, SELFPAY ==
[2023-10-03] VITALS (23 sets, daily range): BP systolic 140–162; BP diastolic 67–88; PULSE 100–113; RESP 13–27; TEMP 36.8; O2SAT 95–100
--- NOTE | ~2023-10-03 | XR_ITS ---
EXAMINATION: XR chest 1V portable 10/03/2023 05:10 INDICATION: Tachycardia. Chest pain. PROCEDURE: AP portable chest COMPARISON: Comparison to multiple prior studies sequentially, with oldest reviewed study dated 05/12. FINDINGS: The lungs are clear. The cardiomediastinal silhouette is within normal limits. There are no pleural effusions. There is no pneumothorax suspected. Multiple healed left rib fractures. There are degenerative changes of the shoulders. IMPRESSION: 1: NO ACUTE CARDIOPULMONARY DISEASE. Reviewed, dictated and finalized at location A. APY DIRECTOR
--- NOTE | 2023-10-03 04:50 | ECG_ITS ---
Measurements Intervals [place] Rate: 98 P: 35 [place]: 155 QRS: 7 QRSD: 108 T: 50 QT: 342 QTc: 438 Interpretive Statements SINUS RHYTHM MINOR T-WAVE ABNORMALITY BORDERLINE ECG COMPARED TO ECG 09/30/2023 20:08:12 NO DIFFERENCE Electronically Signed On 10-03-2023 9:07:29 PATROL CONDUCTOR by Jeremías Sellers M.D.
--- NOTE | 2023-10-03 05:00 | ED.GENADULT ---
HPI - General Adult General Chief complaint: Unspecified <Enrrique Dennison MD - Last Filed: 10/03/23 07:24> Stated complaint: heart racing <Enrrique Dennison MD - Last Filed: 10/03/23 07:24> Time Seen by Provider: 10/03/23 04:44 <Enrrique Dennison MD - Last Filed: 10/03/23 07:24> History of Present Illness HPI narrative: patient sees 63-year-old gentleman who presents emergency department with chief complaint of heart racing. The patient reports that his resident of a local alf and does not like the care that he is receiving at the facility patient states that he called the ambulance because he did not like the care and reported that he had some discomfort in his chest to be transported to the emergency department patient states he did feel as though his heart was beating a little faster than normal and has history of tachycardia. He was also concerned because his roommate had tested positive for COVID he is concerned that he may have pneumonia. <Enrrique Dennison MD - Last Filed: 10/03/23 07:24> patient sees 63-year-old gentleman who presents to the emergency department with chief complaint of heart racing. The patient reports that his resident of a local alf and does not like the care that he is receiving at the facility patient states that he called the ambulance because he did not like the care and reported that he had some discomfort in his chest to be transported to the emergency department patient states he did feel as though his heart was beating a little faster than normal and has history of tachycardia. He was also concerned because his roommate had tested positive for COVID he is concerned that he may have pneumonia. <Ibrahima Dumont MD - Last Filed: 10/03/23 18:17> Related Data Home medications: Home Medications Medication Instructions Recorded Confirmed budesonide-formoterol HFA 160 2 puff inhalation Q12H 11/08/20 09/09/23 mcg-4.5 mcg/actuation aerosol inhaler (Symbicort) cholecalciferol (vitamin D3) 1,250 1,250 mcg PO WEEKLY 11/08/20 09/09/23 mcg (50,000 unit) capsule montelukast 10 mg tablet 10 mg PO HS 11/08/20 09/09/23 venlafaxine 37.5 mg tablet 37.5 mg PO Q12H 04/11/21 09/09/23 pregabalin 100 mg capsule (Lyrica) 100 mg PO Q12H 07/17/22 09/09/23 magnesium oxide 400 mg (241.3 mg 400 mg PO BID 08/26/22 09/09/23 magnesium) tablet zolpidem 10 mg tablet (Ambien) 10 mg PO HS PRN Insomnia 12/24/22 09/09/23 metformin 1,000 mg tablet 1,000 mg PO Q12H 01/11/23 09/09/23 pravastatin 40 mg tablet 40 mg PO DAILY 01/11/23 09/09/23 insulin aspart U-100 100 unit/mL 5 unit subcut ACINSULIN 05/30/23 09/09/23 (3 mL) subcutaneous pen (Novolog FlexPen U-100 Insulin aspart) insulin detemir U-100 100 unit/mL 40 unit subcut DAILY 05/30/23 09/09/23 (3 mL) subcutaneous pen (Levemir FlexPen) torsemide 20 mg tablet 20 mg PO DAILY PRN Swellng 05/30/23 09/09/23 Imodium A-D 2 mg PO BID PRN Diarrhea 09/09/23 09/09/23 Refresh 0.5 % EACH EYE BID PRN Dry Eye(S) 09/09/23 09/09/23 acetaminophen 325 mg PO Q4H PRN minor pain and 09/09/23 09/09/23 fever cetirizine 10 mg PO QAM 09/09/23 09/09/23 dulaglutide 0.75 mg/0.5 mL 0.5 mg subcut WEEKLY 09/09/23 09/09/23 subcutaneous pen injector (Trulicity) lactase 9,000 units PO AC 09/09/23 09/09/23 metolazone 2.5 mg tablet See Rx Instructions .Route .COMPLEX 09/09/23 09/09/23 mupirocin 2 % topical ointment 2 applic topical BID 09/09/23 09/09/23 <Enrrique Dennison MD - Last Filed: 10/03/23 07:24> Allergies/adverse reactions: Allergies Allergy/AdvReac Type Severity Reaction Status Date / Time naproxen Allergy Intermediate SWELLING Verified 10/03/23 04:41 cefepime Allergy Unknown Blister Verified 10/03/23 04:41 iohexol Allergy Unknown Unknown Verified 10/03/23 04:41 [From contrast - CT, X-RAY] iodine Allergy Other Verified 10/03/23 04:41 vancomycin AdvReac Diarrhea Verified 10/03/23 04:
[2023-10-03 05:10] LABS: Basophils Absolute Auto 0.2 K/mm3 (0.0-0.1); Basophils Percent Auto 0.9 % (0.2-1.2); Eosinophils Absolute Auto 0.7 K/mm3 (0-0.3); Eosinophils Percent Auto 4.3 % (0-4.4); Hematocrit 39.6 % (42.0-52.0); Hemoglobin 13.3 g/dL (14.0-18.0); Immature Granulocyte Absolute 0.19 K/mm3 (0.00-0.031); Immature Granulocyte Percent A 1.1 % (0-0.5); Lymphocytes Absolute Auto 3.62 K/mm3 (0.9-3.2); Lymphocytes Percent Auto 21.4 % (18.3-44.2); Mean Corpuscular HGB Conc 33.6 g/dl (32-36); Mean Corpuscular Hemoglobin 30.2 pg (26-34); Mean Platelet Volume 11.1 fl (7.4-10.4); Monocytes Absolute Auto 1.7 K/mm3 (0.1-0.6); Monocytes Percent Auto 9.7 % (2.6-8.5); Neutrophils Absolute Auto 10.6 K/mm3 (1.3-6.7); Neutrophils Percent Auto 62.6 % (45.5-73.1); Nucleated Red Blood Cells Perc 0.2 % (0.0-0.2); Platelet Count Result 457 k/mm3 (150-375); Red Cell Distribution Width 13.3 % (11.5-14.5); White Blood Count 16.9 K/mm3 (4.5-10.0)
[2023-10-03 05:18] LABS: Alanine Aminotransferase 18 U/L (6-50); Albumin Level 3.4 g/dL (3.5-5.1); Alkaline Phosphatase 104 U/L (38-126); Anion Gap 10 mmol/L (8-16); Aspartate Amino Transferase 21 U/L (17-59); Bilirubin,Total 0.5 mg/dL (0.2-1.3); Blood Urea Nitrogen 26 mg/dL (9-20); Calcium 9.7 mg/dL (8.4-10.2); Carbon Dioxide 25 mmol/L (22-30); Chloride 101 mmol/L (98-107); Estimated CRCL calculation 81 ml/min; Estimated Glomerular Filt Rate > 60; Glucose 229 mg/dL (65-110); Lipase 90 U/L (23-300); Potassium 4.6 mmol/L (3.4-5.0); Sodium 136 mmol/L (137-145)
[2023-10-03 05:30] LABS: Troponin I < 0.012 ng/mL (0.000-0.034)
[2023-10-03 08:13] LABS: Troponin I < 0.012 ng/mL (0.000-0.034)
== END 2023-10-03 10:14 ==
PROVIDERS: Emergency Provider Emergency Medicine; PCP Nurse Practitioner Family
DX: R00.2 Palpitations (principal); E11.22 Type 2 diabetes mellitus with diabetic chronic kidney disease; N18.9 Chronic kidney disease, unspecified; E11.51 Type 2 diabetes mellitus with diabetic peripheral angiopathy without gangrene; I73.9 Peripheral vascular disease, unspecified; I50.30 Unspecified diastolic (congestive) heart failure; D64.9 Anemia, unspecified; N40.0 Benign prostatic hyperplasia without lower urinary tract symptoms; G47.33 Obstructive sleep apnea (adult) (pediatric); Z86.14 Personal history of Methicillin resistant Staphylococcus aureus infection; Z86.73 Personal history of transient ischemic attack (TIA), and cerebral infarction without residual deficits; Z87.891 Personal history of nicotine dependence; Z89.431 Acquired absence of right foot; Z90.49 Acquired absence of other specified parts of digestive tract; Z90.81 Acquired absence of spleen; R94.31 Abnormal electrocardiogram [ECG] [EKG]; Z79.4 Long term (current) use of insulin; Z79.85 Long-term (current) use of injectable non-insulin antidiabetic drugs; Z79.01 Long term (current) use of anticoagulants
CPT/HCPCS: 36415; 71045; 80053; 83690; 84484; 85025; 93005; 99284

== ENCOUNTER 2023-11-13 15:38 | Observation (INO) | payer MEDICARE, MEDICAID, SELFPAY ==
[2023-11-13] VITALS (20 sets, daily range): BP systolic 142–154; BP diastolic 73–87; PULSE 94–110; RESP 12–20; TEMP 36.6–36.7; O2SAT 96–100; BMI 37.0
--- NOTE | ~2023-11-13 | XR_ITS ---
EXAMINATION: XR chest 2V Exam Date/Time: 11/13/2023 16:50 MEDICAL AND HEALTH SERVICES MANAGER HISTORY: SOB; BEST IMAGING OBTAINED PT. UNABLE TO HOLD LEFT ARM UP Comparison: 10/03/2023. RESULT: Lines, tubes, and devices: None. Lungs and pleura: Lateral views limited by degree of inspiration and positioning. No focal consolida tion, pleural effusion, or pneumothorax. Cardiomediastinal silhouette: Stable. Other: No acute osseous or upper abdominal finding. IMPRESSION: No acute cardiopulmonary process. Reviewed, dictated and finalized at location K. CAL AND HEALTH SERVICES MANAGER
--- NOTE | ~2023-11-13 | MR_ITS ---
EXAMINATION: MR brain/brain stem wo/w con DATE: 11/15/2023 12:12 INDICATION: Seizure. TECHNIQUE: Magnetic resonance imaging (MRI) of the brain and brainstem was performed without and with 20 mL MultiHance intravenous contrast. COMPARISON: Head CT 11/13/2023 FINDINGS: There is an old infarct involving right frontal and parietal lobes. There is a prominent pe rivascular space in the left basal ganglia. There are scattered areas of nonspecific increased T2-alberto ghted signal intensity in the cerebral white matter and prince. There is no intracranial hemorrhage, ac tangirnaq infarction, or abnormal intracranial mass lesion. There is ex vacuo dilatation of right lateral v entricle. The orbits are normal. There is mild mucosal thickening in the ethmoid sinuses. The mastoid air cells are normal. IMPRESSION: 1. Old infarct involving the right frontal and parietal lobes. 2. Moderate nonspecific cerebral white matter disease and pontine disease, which likely represents ch ronic small vessel ischemic disease. Reviewed, dictated and finalized at location A. RTING OPERATOR IMPRESSION: 1. Old infarct involving the right frontal and parietal lobes. 2. Moderate nonspecific cerebral white matter disease and pontine disease, whic h likely represents chronic small vessel ischemic disease.
--- NOTE | ~2023-11-13 | CT_ITS ---
EXAMINATION: CT brain wo con DATE: 11/13/2023 16:53 INDICATION: seizure . TECHNIQUE: Computed tomography (CT) of the head was performed without intravenous contrast. The mA wa s adjusted according to patient size. Iterative reconstruction technique was employed. The dose-lengt h product was 605.33 mGy-cm. COMPARISON: 05/12/2023. FINDINGS: No acute intracranial hemorrhage or extra-axial fluid collection. No hydrocephalus, mass, or herniation. No acute ischemic infarct. Unremarkable dural venous sinus attenuation. No acute osseous abnormality. The aerated spaces are clear. Moderate atrophy and chronic white matter change. Atherosclerotic intracranial calcification. Old lef t lacunar infarct. Right frontal parietal encephalomalacia. IMPRESSION: No acute intracranial process. Reviewed, dictated and finalized at location K. VERY ROOM CLERK
--- NOTE | ~2023-11-13 | XR_ITS ---
XR knee LT 3V 11/13/2023 22:50 Indication: Left knee pain after fall Procedure: 3 views left knee Comparison: No prior studies for comparison. Findings: There is a healing proximal fibular fracture with callus formation. There is mild osteoarth ritis of the left knee. No significant joint effusion. No acute fracture. No foreign bodies. There is atherosclerosis. Impression: 1: No acute fracture. Reviewed, dictated and finalized at location A. BILITATION CONSULTANT Impression: 1: No acute fracture.
--- NOTE | 2023-11-13 15:42 | ECG_ITS ---
Measurements Intervals [place] Rate: 107 P: 22 [place]: 157 QRS: 8 QRSD: 85 T: 47 QT: 322 QTc: 430 Interpretive Statements SINUS TACHYCARDIA CONSIDER INFERIOR INFARCT, AGE INDETERMINATE NONSPECIFIC ST-T WAVE ABNORMALITY- HIGH LATERAL LEADS BASELINE ARTIFACT- I, II, AVR, V2, V6 ABNORMAL ECG COMPARED TO ECG 10/03/2023 04:41:35 SINUS TACHYCARDIA NOW PRESENT Electronically Signed On 11-13-2023 16:16:00 INVENTORY CONTROL MANAGER by Phillip Rodriguez D.O.
--- NOTE | 2023-11-13 15:46 | PC.NURSE ---
pt was a wound on left farley with dressing intact upon arrival. last changed this morning
[2023-11-13 16:26] LABS: Basophils Absolute Auto 0.1 K/mm3 (0.0-0.1); Basophils Percent Auto 0.7 % (0.2-1.2); Eosinophils Absolute Auto 0.5 K/mm3 (0-0.3); Eosinophils Percent Auto 2.8 % (0-4.4); Hematocrit 40.1 % (42.0-52.0); Hemoglobin 13.1 g/dL (14.0-18.0); Immature Granulocyte Absolute 0.19 K/mm3 (0.00-0.031); Immature Granulocyte Percent A 1.1 % (0-0.5); Lymphocytes Absolute Auto 2.91 K/mm3 (0.9-3.2); Lymphocytes Percent Auto 16.3 % (18.3-44.2); Mean Corpuscular HGB Conc 32.7 g/dl (32-36); Mean Corpuscular Hemoglobin 30.3 pg (26-34); Mean Corpuscular Volume 92.8 fl (80-100); Mean Platelet Volume 10.7 fl (7.4-10.4); Monocytes Absolute Auto 1.7 K/mm3 (0.1-0.6); Monocytes Percent Auto 9.3 % (2.6-8.5); Neutrophils Absolute Auto 12.5 K/mm3 (1.3-6.7); Neutrophils Percent Auto 69.8 % (45.5-73.1); Platelet Count Result 487 k/mm3 (150-375); Red Blood Count 4.32 M/mm3 (4.6-6.20); Red Cell Distribution Width 13.5 % (11.5-14.5); White Blood Count 17.9 K/mm3 (4.5-10.0)
[2023-11-13 16:35] LABS: Ethanol < 10 mg/dL (<10)
[2023-11-13 16:36] LABS: Alanine Aminotransferase 19 U/L (6-50); Albumin Level 3.4 g/dL (3.5-5.1); Alkaline Phosphatase 92 U/L (38-126); Anion Gap 7 mmol/L (8-16); Aspartate Amino Transferase 21 U/L (17-59); Bilirubin,Total 0.4 mg/dL (0.2-1.3); Blood Urea Nitrogen 28 mg/dL (9-20); Carbon Dioxide 27 mmol/L (22-30); Chloride 103 mmol/L (98-107); Estimated CRCL calculation 74 ml/min; Estimated Glomerular Filt Rate > 60; Glucose 228 mg/dL (65-110); Potassium 4.6 mmol/L (3.4-5.0); Sodium 137 mmol/L (137-145)
--- NOTE | 2023-11-13 17:01 | ED.GENADULT ---
HPI - General Adult General Chief complaint: Fall Stated complaint: fall, on thinners Time Seen by Provider: 11/13/23 15:43 History of Present Illness HPI narrative: Patient is a 63-year-old male who presents ER after After a fall while getting off the toilet. Reports he did have a loose stool with some streaks blood from a hemorrhoid. longterm called EMS. When EMS arrived they stated patient was lying on the floor shaking. They were then able to speak to the patient he was acting normally. They report 4 additional episodes lasting about 10 seconds the patient's eyes were deviated to the left and he would start shaking. They felt it was seizure activity. Patient has no history of seizures and is on no antiepileptics. Patient was on a monitor and showed no arrhythmia. Patient denies any chest pain or shortness of breath or palpitations. No tongue biting. He did not strike his head. Related Data Home Medications Medication Instructions Recorded Confirmed budesonide-formoterol HFA 160 2 puff inhalation Q12H 11/08/20 09/09/23 mcg-4.5 mcg/actuation aerosol inhaler (Symbicort) cholecalciferol (vitamin D3) 1,250 1,250 mcg PO WEEKLY 11/08/20 09/09/23 mcg (50,000 unit) capsule montelukast 10 mg tablet 10 mg PO HS 11/08/20 09/09/23 venlafaxine 37.5 mg tablet 37.5 mg PO Q12H 04/11/21 09/09/23 pregabalin 100 mg capsule (Lyrica) 100 mg PO Q12H 07/17/22 09/09/23 magnesium oxide 400 mg (241.3 mg 400 mg PO BID 08/26/22 09/09/23 magnesium) tablet zolpidem 10 mg tablet (Ambien) 10 mg PO HS PRN Insomnia 12/24/22 09/09/23 metformin 1,000 mg tablet 1,000 mg PO Q12H 01/11/23 09/09/23 pravastatin 40 mg tablet 40 mg PO DAILY 01/11/23 09/09/23 insulin aspart U-100 100 unit/mL 5 unit subcut ACINSULIN 05/30/23 09/09/23 (3 mL) subcutaneous pen (Novolog FlexPen U-100 Insulin aspart) insulin detemir U-100 100 unit/mL 40 unit subcut DAILY 05/30/23 09/09/23 (3 mL) subcutaneous pen (Levemir FlexPen) torsemide 20 mg tablet 20 mg PO DAILY PRN Swellng 05/30/23 09/09/23 Imodium A-D 2 mg PO BID PRN Diarrhea 09/09/23 09/09/23 Refresh 0.5 % EACH EYE BID PRN Dry Eye(S) 09/09/23 09/09/23 acetaminophen 325 mg PO Q4H PRN minor pain and 09/09/23 09/09/23 fever cetirizine 10 mg PO QAM 09/09/23 09/09/23 dulaglutide 0.75 mg/0.5 mL 0.5 mg subcut WEEKLY 09/09/23 09/09/23 subcutaneous pen injector (Trulicity) lactase 9,000 units PO AC 09/09/23 09/09/23 metolazone 2.5 mg tablet See Rx Instructions .Route .COMPLEX 09/09/23 09/09/23 mupirocin 2 % topical ointment 2 applic topical BID 09/09/23 09/09/23 Allergies Allergy/AdvReac Type Severity Reaction Status Date / Time naproxen Allergy Intermediate SWELLING Verified 11/13/23 15:50 cefepime Allergy Unknown Blister Verified 11/13/23 15:50 iohexol Allergy Unknown Unknown Verified 11/13/23 15:50 [From contrast - CT, X-RAY] iodine Allergy Other Verified 11/13/23 15:50 vancomycin AdvReac Diarrhea Verified 11/13/23 15:50 Review of Systems Review of Systems: All systems reviewed & are unremarkable except as noted in HPI and below Constitutional: Constitutional: Denies chills, Denies fever(s) and Reports weakness ENT: Denies nasal congestion and Denies sore throat Cardiovascular: Cardiovascular: Denies chest pain, Denies rapid heart rate and Denies radiating jaw, neck or arm pain Respiratory: Respiratory: Denies cough and Denies dyspnea Neurologic: Denies headache(s), Denies focal weakness and Denies numbness Comments: Possible seizure PMFSH Past Medical History Medical History Anemia Anxiety Benign prostatic hyperplasia Cerebrovascular accident (2014) Chronic anticoagulation Chronic kidney disease Claustrophobia Depression Diastolic heart failure Echo 08/2022: Mild concentric hypertrophy, systolic function 74%, grade 2 diastolic dysfunction, mild left atrial enlargement, right ventricle not well visual
--- NOTE | 2023-11-13 17:30 | PC.NURSE ---
provided pt with zinc oxide cream because they stated their coccyx was sore. mild redness noted to coccyx and mild skin breakdown of inner thigh. pt is also unable to urinate at this time. pt was told to use call light with any urge to urinate and was provided a urinal
--- NOTE | 2023-11-13 17:50 | PC.NURSE ---
bladder scan on pt read 348ml but pt states they do not want to be straight cathed and would like more time to produce urine. urinal and call light with pt
[2023-11-13 18:36] LABS: Add Urine Microscopic? YES; Appearance Urine Clear (Clear); Bacteria Urine None Seen /hpf; Bilirubin Urine Negative (Negative); Blood Urine Negative (Negative); Color Urine Yellow (Yellow); Glucose Urine UA Trace mg/dL (Negative); Ketones Urine Negative (Negative); Leukocyte Esterase Ur Negative LEU/UL (Negative); Need Manual Microscopic Reviewed; Nitrate Urine Negative (Negative); Non Pathogenic Casts 0-2; Protein Urine 3+ mg/dL (Negative); Specific Grav Ur 1.018 (1.001-1.035); Squamous Epithelial Cell Urine None seen /hpf (Few); WBC Urine 0-5 /hpf
[2023-11-13 18:40] LABS: Amphetamine Screen Urine Negative (Negative); Barbiturate Screen Urine Negative (Negative); Benzodiazepines Screen Urine Positive (Negative); Cannabinoid Screen Urine Negative (Negative); Cocaine Screen Urine Negative (Negative); Methadone Screen Urine Negative (Negative); Opiate Screen Urine Negative (Negative); Phencyclidine Screen Urine Negative (Negative)
[2023-11-13] MEDS: levETIRAcetam 1000MG/NACL100ML 1,000 MG/100 ML BAG 400 MG IVPB (18:40)
--- NOTE | 2023-11-13 19:36 | ADMGEN ---
This patient, Jeremías Gaines, was admitted to Medical Room 257-01. Patient/family oriented to hospital policies and general routines including ID bracelet, bed and alarms, visiting hours, pain management, procedures, bathroom and other care routines, personal items, smoking policy, room service/diet, and visiting hours. Information on how to activate the Rapid Response Team has been discussed. Patient/Family are encouraged to report perceived risks to care and to ask questions if they do not understand what they are told or what they should do.
--- NOTE | 2023-11-13 21:17 | PM.IMHP ---
H&P: HPI History of Present Illness Date/Time: 11/13/23 21:30 Chief Complaint: Fall, seizure-like activity. Narrative: This is a 63-year-old male with multiple medical problems including history of stroke, insulin-dependent diabetes, hypertension, orthostatic hypotension, pulmonary embolism, myelofibrosis status post splenectomy, chronic kidney disease, anxiety, and other comorbidities who presented to the emergency department via EMS from [facility] for evaluation of seizure-like activity after a fall. The patient provides the following history. Not long prior to arrival he fell while trying to get back in his wheelchair after using the bathroom. He then reportedly had a 5 second episode where he demonstrated seizure-like activity, reportedly lying on the floor shaking. This occurred several other times and staff report that his eyes seem to deviate to the left when he would start shaking. He has no history of seizures and they called 911. He was alert and oriented on arrival to the emergency department. Vital signs have been stable. BUN was a bit elevated but the remainder of his labs are consistent with his baseline. Urine drug screen was positive for benzodiazepines which he does take at home. Brain CT showed no acute intracranial process. He is being admitted in this setting for close monitoring and neurology consultation. At the time my evaluation he has no complaints. Review of Systems Review of Systems: Twelve systems were reviewed. He denies fever, chills, sweats. No cold or flu symptoms though he reports that his roommate recently had COVID. He denies chest pain and shortness a breath. Complains of mild knee pain which he thinks he may have hit when he fell off the toilet today. He has chronic wounds on his left leg and he did not want me to unwrap his dressing. Except as documented, all other systems were reviewed and are negative. [facility] Past Medical History Medical History Anemia Anxiety Benign prostatic hyperplasia Cerebrovascular accident (2014) Chronic anticoagulation Chronic kidney disease Claustrophobia Depression Diastolic heart failure Echo 08/2022: Mild concentric hypertrophy, systolic function 74%, grade 2 diastolic dysfunction, mild left atrial enlargement, right ventricle not well visualized but grossly normal Enterobacter sepsis Secondary to UTI. Fracture of proximal end of left humerus Left cervical radiculopathy Migraines MRSA infection Myelofibrosis Neuropathy Obstructive sleep apnea Noncompliant with CPAP Peripheral vascular disease Pulmonary embolism (01/2020) Type 2 diabetes mellitus Surgical History Surgical History Amputation of right forefoot Amputation of right great toe History of cholecystectomy (1985) History of hernia repair History of splenectomy (08/2019) Left great toe amputee (04/2020) Partial Family History Family History Father , 75 Congestive heart failure Mother , 74 Brain bleed Sibling , Sister Cancer Dementia Social History Social History Social History: Surrogate medical decision maker: Gloria Esparza (sister) Code status: Full code. Smoking packs per day: 1 Smoking cigarettes per day: 20.0 Years smoked: 20 Smoking pack-years: 20.00 Smoking status: Former smoker Tobacco type: cigarettes Smoking end date: 10/18/94 Alcohol intake: never Drinks per week: 1 Alcohol use details: 1/month Substance use: former Substance use type: marijuana Do You Feel Safe in your Home?: Yes Lack of Transportation: No Lack of Food: Never True Current Housing: I Have Housing Concerned About Future Housing: No Difficulty Paying Gas/Electric Bills: No Difficulty Paying for Med
[2023-11-13 21:59] LABS: Glucose Point of Care 179 mg/dl (65-105)
[2023-11-13] MEDS: PREGABALIN (*CRX) 50 MG CAPSULE 100 MG PO (23:34)
[2023-11-13] MEDS: VENLAFAXINE HCL 75 MG TABLET PO (23:35)
[2023-11-14] VITALS (13 sets, daily range): BP systolic 137–151; BP diastolic 65–68; PULSE 54–107; RESP 18–20; TEMP 36.7–36.9; O2SAT 94–98
[2023-11-14 05:51] LABS: Hematocrit 40.3 % (42.0-52.0); Hemoglobin 13.3 g/dL (14.0-18.0); Mean Corpuscular Volume 90.8 fl (80-100); Mean Platelet Volume 10.8 fl (7.4-10.4); Platelet Count Result 484 k/mm3 (150-375); Red Blood Count 4.44 M/mm3 (4.6-6.20); Red Cell Distribution Width 13.2 % (11.5-14.5)
[2023-11-14 06:10] LABS: Anion Gap 4 mmol/L (8-16); Blood Urea Nitrogen 20 mg/dL (9-20); Calcium 9.1 mg/dL (8.4-10.2); Carbon Dioxide 31 mmol/L (22-30); Chloride 101 mmol/L (98-107); Estimated CRCL calculation 87 ml/min; Estimated Glomerular Filt Rate > 60; Glucose 148 mg/dL (65-110); Magnesium 1.1 mg/dL (1.6-2.3); Potassium 4.1 mmol/L (3.4-5.0); Sodium 136 mmol/L (137-145)
[2023-11-14] MEDS: LACTASE 3,000 UNIT TABLET 9000 UNIT PO ×3 (06:45→17:13)
[2023-11-14 08:35] LABS: Glucose Point of Care 163 mg/dl (65-105)
[2023-11-14] MEDS: APIXABAN 5 MG TABLET PO ×2 (09:40→21:12)
[2023-11-14] MEDS: MAGNESIUM OXIDE 400 MG TABLET PO ×2 (09:41→17:13)
[2023-11-14] MEDS: levETIRAcetam 500 MG TABLET PO ×2 (09:41→21:11)
[2023-11-14] MEDS: LORATADINE 10 MG TABLET PO (09:41)
--- NOTE | 2023-11-14 09:41 | PM.IMPN ---
Progress Note: A&P Assessment and Plan (1) Seizure-like activity: Code(s): R56.9 - Unspecified convulsions Status: Acute Assessment and Plan: Patient was at his shelter and was transferring back to his wheelchair after using the commode and fell. Nursing staff noted he was shaking and having seizure like activity. This continued when they got him back to his room. Keppra 1000mg loading dose given in ER and started on Keppra 500 mg BID Neurology was consulted Plan for MRI of brain/brain-stem w/wo contrast and EEG today Continue seizure precautions Continue fall precautions. (2) Frequent falls: Code(s): R29.6 - Repeated falls Status: Acute Assessment and Plan: see above (3) Leukocytosis: Code(s): D72.829 - Elevated white blood cell count, unspecified Status: Acute Assessment and Plan: WBC initially 17.9, now 19.0 (4) Insulin dependent diabetes mellitus: Status: Chronic Assessment and Plan: Blood glucose ranging 148-163 Last Hgb A1C was on 09/09/23 and was 7.5 Continue Lantus 54 units daily Meal dose insulin 8 units AC ordered Continue accu-checks AC/HS hypoglycemic protocol Recheck Hgb A1C with next set of labs (5) Chronic diastolic heart failure: Code(s): I50.32 - Chronic diastolic (congestive) heart failure Status: Chronic Assessment and Plan: Restarted Torsemide, metolazone, metoprolol Last echo on 09/10/23 shown normal LV systolic function with an EF of 60-65%, grade 1 diastolic dysfunction, normal RV function. (6) Anxiety: Code(s): F41.9 - Anxiety disorder, unspecified Status: Chronic Assessment and Plan: Continue Valium 2mg q12h (7) Depression: Code(s): F32.9 - Major depressive disorder, single episode, unspecified Status: Chronic Assessment and Plan: Continue effexor (8) BPH (benign prostatic hyperplasia): Qualifiers: Lower urinary tract symptom presence: unspecified whether lower urinary tract symptoms present Qualified Code(s): N40.0 - Benign prostatic hyperplasia without lower urinary tract symptoms Code(s): N40.0 - Benign prostatic hyperplasia without lower urinary tract symptoms Status: Chronic Assessment and Plan: Continue tamsulosin (9) Myelofibrosis: Code(s): D75.81 - Myelofibrosis Status: Chronic Assessment and Plan: of note Time Spent With Patient Time with patient: Greater than 35 minutes Subjective Date/time seen: 11/14/23 09:41 Interval history: This is a 63-year-old male who presented to the hospital from [facility] on 11/13/2023 with complaints of seizure-like activity and a fall. Workup in the hospital included head CT which was negative for any intracranial process. Chest x-ray was negative for any cardiopulmonary process. Left knee x-ray was negative for any fracture. Labs revealed of white blood cell count of 17.9, RBC 4.32, hemoglobin 13.1, hematocrit 40.1, platelet count 487, liver and kidney function are normal, albumin 3.4. A UA was obtained and showed 3+ protein, trace glucose, 11-20 urine RBCs, otherwise unremarkable. Tox screen was done and was positive for benzodiazepines, however patient takes these at home. EKG showed sinus tach with the rate of 107. Patient was given 1000 mg of Keppra in the ED, started on 500 mg of Keppra b.i.d. neurology was consulted. On examination today patient is alert and oriented x3, lying in the bed. Patient is afebrile, vital signs are stable, heart rate ranging 105-107, currently on 3 L nasal cannula. Patient denies any fever, cough, chills, nausea, vomiting, diarrhea, abdominal pain, shortness of breath, or chest pain. He did state that his room mate had COVID a few weeks back but that is the only sick contact. He also states that when he fell it messed with his peripheral neuropathy causing his legs to shake and he states that is t
[2023-11-14] MEDS: METOPROLOL SUCCINATE EXT REL 25 MG TABCR PO ×2 (09:42→21:12)
[2023-11-14] MEDS: PANTOPRAZOLE 40 MG TABLET PO (09:43)
[2023-11-14] MEDS: VENLAFAXINE HCL 75 MG TABLET PO ×2 (09:43→21:16)
[2023-11-14] MEDS: PREGABALIN (*CRX) 50 MG CAPSULE 100 MG PO ×2 (09:43→21:12)
[2023-11-14] MEDS: INSULIN GLARGINE (*BKC) 100 UNITS/ML 54 UNITS SUB-Q (09:44)
[2023-11-14] MEDS: INSULIN ASPART (*BKC) 100 UNITS/ML 8 UNITS SUB-Q ×3 (09:46→17:14)
[2023-11-14] MEDS: FLUTICASONE/SALMETEROL 115-21 MCG INHALER 1 PUFF 2 PUFF INHALATION ×2 (10:36→22:40)
[2023-11-14] MEDS: MAGNESIUM SULF 4 GM/WATER100ML 4 GM/100 ML BAG IVPB (11:42)
[2023-11-14 12:05] LABS: Glucose Point of Care 241 mg/dl (65-105)
[2023-11-14] MEDS: INSULIN ASPART (*BKC) 100 UNITS/ML SUB-Q ×2 (12:31→21:16)
--- NOTE | 2023-11-14 13:12 | PC.NURSE ---
MRI ordered. Patient states allergic to contrast for MRI. drivability technician stated the contrast used here is not listed as an allergy for this patient. ELIDIA Saxena notified. Patient also states they are claustrophobic and would like to be sedated for an MRI . Provider notified and would prefer to not use sedating medications without neurology input. Neurology consulted.
[2023-11-14 17:30] LABS: Glucose Point of Care 146 mg/dl (65-105)
[2023-11-14] MEDS: TAMSULOSIN HCL 0.4 MG CAPSULE PO (21:11)
[2023-11-14] MEDS: PRAVASTATIN SODIUM 20 MG TABLET 40 MG PO (21:11)
[2023-11-14] MEDS: MONTELUKAST SODIUM 10 MG TABLET PO (21:12)
[2023-11-14 22:08] LABS: Glucose Point of Care 225 mg/dl (65-105)
[2023-11-15] VITALS (13 sets, daily range): BP systolic 134–145; BP diastolic 67–79; PULSE 63–95; RESP 13–18; TEMP 36.2–36.7; O2SAT 96–99
[2023-11-15] MEDS: LACTASE 3,000 UNIT TABLET 9000 UNIT PO ×3 (05:59→17:28)
[2023-11-15 06:34] LABS: Alanine Aminotransferase 16 U/L (6-50); Albumin Level 3.3 g/dL (3.5-5.1); Alkaline Phosphatase 86 U/L (38-126); Anion Gap 5 mmol/L (8-16); Aspartate Amino Transferase 27 U/L (17-59); Bilirubin,Total 0.5 mg/dL (0.2-1.3); Blood Urea Nitrogen 22 mg/dL (9-20); Calcium 9.3 mg/dL (8.4-10.2); Carbon Dioxide 29 mmol/L (22-30); Chloride 98 mmol/L (98-107); Estimated CRCL calculation 79 ml/min; Estimated Glomerular Filt Rate > 60; Glucose 180 mg/dL (65-110); Magnesium 1.7 mg/dL (1.6-2.3); Sodium 132 mmol/L (137-145)
--- NOTE | 2023-11-15 07:54 | P.PNIM_ITS ---
Progress Note: A&P Assessment and Plan (1) Seizure-like activity: Code(s): R56.9 - Unspecified convulsions Status: Acute Assessment and Plan: 11/14/23: * Patient was at his snf and was transferring back to his wheelchair after using the commode and fell. Nursing staff noted he was shaking and having seizure like activity. This continued when they got him back to his room. * Keppra 1000mg loading dose given in ER and started on Keppra 500 mg BID * Neurology was consulted * Plan for MRI of brain/brain-stem w/wo contrast and EEG today * Continue seizure precautions * Continue fall precautions. 11/15/23: * Still awaiting EEG * Patient refusing MRI of brain as he has stated the last MRI caused him to have a CVA from the contrast * Continue fall and seizure precautions * Neurology consulted, however they will not see him today due to no coverage. Likely will be seen tomorrow. * Continue Keppra (2) Frequent falls: Code(s): R29.6 - Repeated falls Status: Acute Assessment and Plan: * see above (3) Leukocytosis: Code(s): D72.829 - Elevated white blood cell count, unspecified Status: Acute Assessment and Plan: 11/14/23: * WBC initially 17.9, now 19.0 11/15/23: * WBC now 20.4 * Will get procalcitonin today. (4) Insulin dependent diabetes mellitus: Status: Chronic Assessment and Plan: 11/14/23: * Blood glucose ranging 148-163 * Last Hgb A1C was on 09/09/23 and was 7.5 * Continue Lantus 54 units daily * Meal dose insulin 8 units AC ordered * Continue accu-checks AC/HS * hypoglycemic protocol * Recheck Hgb A1C with next set of labs 11/15/23: * BG ranging 180-225 * Change to high dose SSI post prandial * Continue with current treatment plan (5) Chronic diastolic heart failure: Code(s): I50.32 - Chronic diastolic (congestive) heart failure Status: Chronic Assessment and Plan: 11/14/23: * Restarted Torsemide, metolazone, metoprolol * Last echo on 09/10/23 shown normal LV systolic function with an EF of 60-65%, grade 1 diastolic dysfunction, normal RV function. 11/15/23: * No change to current treatment plan (6) Anxiety: Code(s): F41.9 - Anxiety disorder, unspecified Status: Chronic Assessment and Plan: 11/14/23: * Continue Valium 2mg q12h 11/15/23: * No change to current treatment plan (7) Depression: Code(s): F32.9 - Major depressive disorder, single episode, unspecified Status: Chronic Assessment and Plan: 11/14/23: * Continue effexor 11/15/23: * No change to current treatment plan (8) BPH (benign prostatic hyperplasia): Qualifiers: Lower urinary tract symptom presence: unspecified whether lower urinary tract symptoms present Qualified Code(s): N40.0 - Benign prostatic hyperplasia without lower urinary tract symptoms Code(s): N40.0 - Benign prostatic hyperplasia without lower urinary tract symptoms Status: Chronic Assessment and Plan: 11/14/23: * Continue tamsulosin 11/15/23: * Continue with current treatment plan (9) Myelofibrosis: Code(s): D75.81 - Myelofibrosis Status: Chronic Assessment and Plan: of note Time Spent With Patient Time with patient: 25 - 35 minutes Subjective Date/time seen: 11/15/23 07:54 Interval history: 11/14/23: This is a 63-year-old male who presented to the hospital from [facility] on 11/13/2023 with com
--- NOTE | 2023-11-15 07:54 | PM.IMPN ---
Progress Note: A&P Assessment and Plan (1) Seizure-like activity: Code(s): R56.9 - Unspecified convulsions Status: Acute Assessment and Plan: 11/14/23: Patient was at his longterm and was transferring back to his wheelchair after using the commode and fell. Nursing staff noted he was shaking and having seizure like activity. This continued when they got him back to his room. Keppra 1000mg loading dose given in ER and started on Keppra 500 mg BID Neurology was consulted Plan for MRI of brain/brain-stem w/wo contrast and EEG today Continue seizure precautions Continue fall precautions. 11/15/23: Still awaiting EEG Patient refusing MRI of brain as he has stated the last MRI caused him to have a CVA from the contrast Continue fall and seizure precautions Neurology consulted, however they will not see him today due to no coverage. Likely will be seen tomorrow. Continue Keppra (2) Frequent falls: Code(s): R29.6 - Repeated falls Status: Acute Assessment and Plan: see above (3) Leukocytosis: Code(s): D72.829 - Elevated white blood cell count, unspecified Status: Acute Assessment and Plan: 11/14/23: WBC initially 17.9, now 19.0 11/15/23: WBC now 20.4 Will get procalcitonin today. (4) Insulin dependent diabetes mellitus: Status: Chronic Assessment and Plan: 11/14/23: Blood glucose ranging 148-163 Last Hgb A1C was on 09/09/23 and was 7.5 Continue Lantus 54 units daily Meal dose insulin 8 units AC ordered Continue accu-checks AC/HS hypoglycemic protocol Recheck Hgb A1C with next set of labs 11/15/23: BG ranging 180-225 Change to high dose SSI post prandial Continue with current treatment plan (5) Chronic diastolic heart failure: Code(s): I50.32 - Chronic diastolic (congestive) heart failure Status: Chronic Assessment and Plan: 11/14/23: Restarted Torsemide, metolazone, metoprolol Last echo on 09/10/23 shown normal LV systolic function with an EF of 60-65%, grade 1 diastolic dysfunction, normal RV function. 11/15/23: No change to current treatment plan (6) Anxiety: Code(s): F41.9 - Anxiety disorder, unspecified Status: Chronic Assessment and Plan: 11/14/23: Continue Valium 2mg q12h 11/15/23: No change to current treatment plan (7) Depression: Code(s): F32.9 - Major depressive disorder, single episode, unspecified Status: Chronic Assessment and Plan: 11/14/23: Continue effexor 11/15/23: No change to current treatment plan (8) BPH (benign prostatic hyperplasia): Qualifiers: Lower urinary tract symptom presence: unspecified whether lower urinary tract symptoms present Qualified Code(s): N40.0 - Benign prostatic hyperplasia without lower urinary tract symptoms Code(s): N40.0 - Benign prostatic hyperplasia without lower urinary tract symptoms Status: Chronic Assessment and Plan: 11/14/23: Continue tamsulosin 11/15/23: Continue with current treatment plan (9) Myelofibrosis: Code(s): D75.81 - Myelofibrosis Status: Chronic Assessment and Plan: of note Time Spent With Patient Time with patient: 25 - 35 minutes Subjective Date/time seen: 11/15/23 07:54 Interval history: 11/14/23: This is a 63-year-old male who presented to the hospital from [facility] on 11/13/2023 with complaints of seizure-like activity and a fall. Workup in the hospital included head CT which was negative for any intracranial process. Chest x-ray was negative for any cardiopulmonary process. Left knee x-ray was negative for any fracture. Labs revealed of white blood cell count of 17.9, RBC 4.32, hemoglobin 13.1, hematocrit 40.1, platelet count 487, liver and kidney function are normal, albumin 3.4. A UA was obtained and showed 3+ protein, trace glucose, 11-20 urine RBCs, otherwise unremarkable. Tox screen was done an
[2023-11-15 08:25] LABS: Glucose Point of Care 244 mg/dl (65-105)
[2023-11-15 08:35] LABS: Basophils Absolute Auto 0.1 K/mm3 (0.0-0.1); Basophils Percent Auto 0.6 % (0.2-1.2); Eosinophils Absolute Auto 0.6 K/mm3 (0-0.3); Eosinophils Percent Auto 2.7 % (0-4.4); Hematocrit 42.3 % (42.0-52.0); Immature Granulocyte Absolute 0.23 K/mm3 (0.00-0.031); Immature Granulocyte Percent A 1.1 % (0-0.5); Lymphocytes Percent Auto 15.2 % (18.3-44.2); Mean Corpuscular HGB Conc 33.1 g/dl (32-36); Mean Corpuscular Hemoglobin 30.3 pg (26-34); Mean Corpuscular Volume 91.6 fl (80-100); Mean Platelet Volume 11.4 fl (7.4-10.4); Monocytes Absolute Auto 1.7 K/mm3 (0.1-0.6); Monocytes Percent Auto 8.1 % (2.6-8.5); Neutrophils Absolute Auto 14.8 K/mm3 (1.3-6.7); Neutrophils Percent Auto 72.3 % (45.5-73.1); Nucleated Red Blood Cells Perc 0.1 % (0.0-0.2); Platelet Count Result 516 k/mm3 (150-375); Red Blood Count 4.62 M/mm3 (4.6-6.20); Red Cell Distribution Width 13.7 % (11.5-14.5); White Blood Count 20.4 K/mm3 (4.5-10.0)
[2023-11-15] MEDS: metOLazone 2.5 MG TABLET PO (09:47)
[2023-11-15] MEDS: LORATADINE 10 MG TABLET PO (09:47)
[2023-11-15] MEDS: METOPROLOL SUCCINATE EXT REL 25 MG TABCR PO ×2 (09:47→21:04)
[2023-11-15] MEDS: APIXABAN 5 MG TABLET PO ×2 (09:47→21:04)
[2023-11-15] MEDS: PANTOPRAZOLE 40 MG TABLET PO (09:47)
[2023-11-15] MEDS: VENLAFAXINE HCL 75 MG TABLET PO ×2 (09:51→21:06)
[2023-11-15] MEDS: levETIRAcetam 500 MG TABLET PO ×2 (09:51→21:04)
[2023-11-15] MEDS: MAGNESIUM OXIDE 400 MG TABLET PO ×2 (09:51→17:28)
[2023-11-15] MEDS: PREGABALIN (*CRX) 50 MG CAPSULE 100 MG PO ×2 (09:51→21:05)
[2023-11-15] MEDS: INSULIN ASPART (*BKC) 100 UNITS/ML 8 UNITS SUB-Q ×3 (09:52→17:28)
[2023-11-15] MEDS: INSULIN GLARGINE (*BKC) 100 UNITS/ML 54 UNITS SUB-Q (09:52)
[2023-11-15] MEDS: FLUTICASONE/SALMETEROL 115-21 MCG INHALER 1 PUFF 2 PUFF INHALATION ×2 (10:12→21:12)
[2023-11-15 10:55] LABS: Hemoglobin A1C 8.5 % (<5.7)
[2023-11-15] MEDS: diazePAM INJ (*CRX) 10 MG/2 ML SYRINGE IM (11:21)
[2023-11-15 12:18] LABS: Procalcitonin 0.1 ng/mL
[2023-11-15 12:33] LABS: Glucose Point of Care 273 mg/dl (65-105)
[2023-11-15] MEDS: INSULIN ASPART (*BKC) 100 UNITS/ML SUB-Q (12:37)
[2023-11-15 17:04] LABS: Glucose Point of Care 163 mg/dl (65-105)
[2023-11-15 21:00] LABS: Glucose Point of Care 167 mg/dl (65-105)
[2023-11-15] MEDS: MONTELUKAST SODIUM 10 MG TABLET PO (21:06)
[2023-11-15] MEDS: PRAVASTATIN SODIUM 20 MG TABLET 40 MG PO (21:06)
[2023-11-15] MEDS: TAMSULOSIN HCL 0.4 MG CAPSULE PO (21:06)
[2023-11-15] MEDS: ZOLPIDEM TARTRATE (*CRX) 5 MG TABLET 10 MG PO (21:08)
[2023-11-16 05:20] VITALS: BP 138/63; PULSE 97; RESP 13; TEMP 36.3; O2SAT 96
[2023-11-16 05:39] LABS: Hematocrit 39.2 % (42.0-52.0); Hemoglobin 13.3 g/dL (14.0-18.0); Mean Corpuscular HGB Conc 33.9 g/dl (32-36); Mean Corpuscular Hemoglobin 30.7 pg (26-34); Mean Corpuscular Volume 90.5 fl (80-100); Mean Platelet Volume 10.8 fl (7.4-10.4); Platelet Count Result 476 k/mm3 (150-375); Red Blood Count 4.33 M/mm3 (4.6-6.20); Red Cell Distribution Width 13.4 % (11.5-14.5); White Blood Count 21.1 K/mm3 (4.5-10.0)
[2023-11-16] MEDS: LACTASE 3,000 UNIT TABLET 9000 UNIT PO ×2 (05:39→12:42)
[2023-11-16 06:01] LABS: Alanine Aminotransferase 16 U/L (6-50); Albumin Level 3.3 g/dL (3.5-5.1); Alkaline Phosphatase 75 U/L (38-126); Anion Gap 6 mmol/L (8-16); Aspartate Amino Transferase 22 U/L (17-59); Bilirubin,Total 0.6 mg/dL (0.2-1.3); Blood Urea Nitrogen 26 mg/dL (9-20); Carbon Dioxide 27 mmol/L (22-30); Chloride 99 mmol/L (98-107); Estimated CRCL calculation 75 ml/min; Estimated Glomerular Filt Rate > 60; Glucose 141 mg/dL (65-110); Potassium 4.2 mmol/L (3.4-5.0); Sodium 132 mmol/L (137-145)
[2023-11-16 08:08] LABS: Glucose Point of Care 156 mg/dl (65-105)
[2023-11-16] MEDS: FLUTICASONE/SALMETEROL 115-21 MCG INHALER 1 PUFF 2 PUFF INHALATION (08:17)
[2023-11-16 08:18] VITALS: O2SAT 95
[2023-11-16] MEDS: levETIRAcetam 500 MG TABLET PO (10:14)
[2023-11-16] MEDS: APIXABAN 5 MG TABLET PO (10:14)
[2023-11-16 10:15] VITALS: O2SAT 96
[2023-11-16] MEDS: PANTOPRAZOLE 40 MG TABLET PO (10:15)
[2023-11-16] MEDS: PREGABALIN (*CRX) 50 MG CAPSULE 100 MG PO (10:15)
[2023-11-16] MEDS: LORATADINE 10 MG TABLET PO (10:15)
[2023-11-16] MEDS: VENLAFAXINE HCL 75 MG TABLET PO (10:15)
[2023-11-16] MEDS: MAGNESIUM OXIDE 400 MG TABLET PO (10:15)
[2023-11-16] MEDS: INSULIN ASPART (*BKC) 100 UNITS/ML 8 UNITS SUB-Q ×2 (10:22→12:42)
[2023-11-16] MEDS: ERGOCALCIFEROL 50,000 UNITS CAPSULE 50000 UNITS PO (10:22)
[2023-11-16 10:23] VITALS: PULSE 115
[2023-11-16] MEDS: INSULIN GLARGINE (*BKC) 100 UNITS/ML 54 UNITS SUB-Q (10:23)
[2023-11-16] MEDS: METOPROLOL SUCCINATE EXT REL 25 MG TABCR PO (10:23)
[2023-11-16] MEDS: ACETAMINOPHEN 325 MG TABLET 650 MG PO (10:33)
[2023-11-16 12:14] LABS: Glucose Point of Care 196 mg/dl (65-105)
[2023-11-16] MEDS: BENZONATATE 100 MG CAPSULE 200 MG PO (12:42)
[2023-11-16 14:00] VITALS: BP 102/50; PULSE 100; RESP 14; TEMP 36.6; O2SAT 95
--- NOTE | 2023-11-16 14:25 | WPDNEURCNPN ---
Assessment and Plan Assessment and plan (1) Seizure-like activity: Code(s): R56.9 - Unspecified convulsions Status: Acute (2) Seizure: Code(s): R56.9 - Unspecified convulsions Status: Acute (3) Frequent falls: Code(s): R29.6 - Repeated falls Status: Acute (4) Type 2 diabetes mellitus with hyperglycemia, with long-term current use of insulin: Code(s): E11.65 - Type 2 diabetes mellitus with hyperglycemia; Z79.4 - detention (current) use of insulin Status: Acute (5) Diabetic peripheral neuropathy: Code(s): E11.42 - Type 2 diabetes mellitus with diabetic polyneuropathy Status: Acute Plan 1. Status post right hemispheric stroke with left hemiparesis 2. Diabetes mellitus with peripheral neuropathy 3. Orthostatic dysfunction number possibility of the focal seizure if unread nits likely with secondary generalization and if the episodes are recurring he should be on anticonvulsants because of the major stroke of the right hemisphere Consult date: 11/16/23 HPI: Jeremías Gaines is a 63 year old male admitted to the hospital through the emergency room subsequent of fall while getting off the toilet group home personnel called the EMS and when EMS arrived disorder the patient lying on the floor shaking they were able to speak to the patient he was acting normal. They reported 4 additional episodes lasting for about 10seconds when he had eyes were deviated to the left and he would start shaking patient has no history of seizures in the past and is not receiving any anti seizure medication and at the time of this incident he was on monitor showed no arrhythmia he did not complain of chest pain or shortness of breath. He has been taking multiple medications which include venlafaxine 37.5mg tablet every 12hours Lyrica 100mg q.12 hours metformin 1000mg q.12 hours pravastatin 40mg daily and insulin 40units subQ daily in addition to torsemide 20mg on p.r.n. basis . is reportedly allergic to multiple medication as outlined. And he carries the ongoing diagnosis of 1. Previous stroke in 2014 2. Chronic anticoagulation therapy 3. Chronic renal disease 4. Depression 5. History of cervical radiculopathy and 6. Multiple fractures7 history of pulmonary embolism 8 type 2 diabetes mellitus. he has history of smoking cigarettes per day 15 with the years smoked 40 and smoking pack years of 30 but at present is a former smoker and drinks alcohol only once per week, initial exam in the emergency room documented him to be somewhat chronically ill appearing, vital signs were normal, routine blood studies reveals a blood sugar of 228 and WBC count of 17.9, EKG revealed no atrial fibrillation, brain MRI documented old infarct involving the right frontal and parietal lobes, [facility] Past Medical History Medical History Anemia Anxiety Benign prostatic hyperplasia Cerebrovascular accident (2014) Chronic anticoagulation Chronic kidney disease Claustrophobia Depression Diastolic heart failure Echo 08/2022: Mild concentric hypertrophy, systolic function 74%, grade 2 diastolic dysfunction, mild left atrial enlargement, right ventricle not well visualized but grossly normal Enterobacter sepsis Secondary to UTI. Fracture of proximal end of left humerus Left cervical radiculopathy Migraines MRSA infection Myelofibrosis Neuropathy Obstructive sleep apnea Noncompliant with CPAP Peripheral vascular disease Pulmonary embolism (01/2020) Type 2 diabetes mellitus Surgical History Surgical History Amputation of right forefoot Amputation of right great toe History of cholecystectomy (1985) History of hernia repair History of splenectomy (08/2019) Left great toe amputee (04/2020) Partial Family History Family History Father , 75 [address]
--- NOTE | 2023-11-16 14:28 | PM.DS ---
DS: Admitting Diagnosis Discharge Date 11/16/23 Admitting Diagnosis Seizure like activity IDDM myelofibrosis chronic diastolic heart failure anxiety DS: Discharge Diagnosis Discharge Diagnosis (1) Seizure-like activity: Code(s): R56.9 - Unspecified convulsions Status: Acute (2) Frequent falls: Code(s): R29.6 - Repeated falls Status: Acute (3) Leukocytosis: Code(s): D72.829 - Elevated white blood cell count, unspecified Status: Acute (4) Insulin dependent diabetes mellitus: Status: Chronic (5) Chronic diastolic heart failure: Code(s): I50.32 - Chronic diastolic (congestive) heart failure Status: Chronic (6) Anxiety: Code(s): F41.9 - Anxiety disorder, unspecified Status: Chronic (7) Depression: Code(s): F32.9 - Major depressive disorder, single episode, unspecified Status: Chronic (8) BPH (benign prostatic hyperplasia): Qualifiers: Lower urinary tract symptom presence: unspecified whether lower urinary tract symptoms present Qualified Code(s): N40.0 - Benign prostatic hyperplasia without lower urinary tract symptoms Code(s): N40.0 - Benign prostatic hyperplasia without lower urinary tract symptoms Status: Chronic (9) Myelofibrosis: Code(s): D75.81 - Myelofibrosis Status: Chronic DS: Summary Hospital Course Reason for hospitalization: seizure-like activity IDDM myelofibrosis chronic diastolic heart failure anxiety Hospital Course: 11/14/23: This is a 63-year-old male who presented to the hospital from [facility] on 11/13/2023 with complaints of seizure-like activity and a fall.? Workup in the hospital included head CT which was negative for any intracranial process.? Chest x-ray was negative for any cardiopulmonary process.? Left knee x-ray was negative for any fracture.? Labs revealed of white blood cell count of 17.9, RBC 4.32, hemoglobin 13.1, hematocrit 40.1, platelet count 487, liver and kidney function are normal, albumin 3.4.? A UA was obtained and showed 3+ protein, trace glucose, 11-20 urine RBCs, otherwise unremarkable.? Tox screen was done and was positive for benzodiazepines, however patient takes these at home.? EKG showed sinus tach with the rate of 107.? Patient was given 1000 mg of Keppra in the ED, started on 500 mg of Keppra b.i.d. neurology was consulted. On examination today patient is alert and oriented x3, lying in the bed. Patient is afebrile, vital signs are stable, heart rate ranging 105-107, currently on 3 L nasal cannula.? Patient denies any fever, cough, chills, nausea, vomiting, diarrhea, abdominal pain, shortness of breath, or chest pain. He did state that his room mate had COVID a few weeks back but that is the only sick contact. He also states that when he fell it messed with his peripheral neuropathy causing his legs to shake and he states that is the reason why he was brought in as the nursing staff thought it was a seizure. Labs today reveal white blood cell count of 19.0, RBC 4.44, hemoglobin 13.3, hematocrit 40.3, platelet count 484, sodium 136, blood sugars ranging 148-163, magnesium is 1.1.? Plan today for MRI of the brain and brainstem with and without contrast and EEG. 11/15/23: Patient doing well today. VSS, he is afebrile, currently on 3L NC. He denies any new complaints today. Labs today revealed WBC 20.4, Absolute neutrophils 14.8, Na+ 132, Blood glucose 180-244. We will check a procalcitonin today considering his WBC is elevated, however no signs or symptoms of infectious process. 11/16/23: Patient doing well again today. He reports a headache today otherwise no other complaints. VSS, he is afebrile, currently on 3LNC which is his baseline. Labs were unremarkable. He seen neurology who is fine with discharge today. MRI only shown old infarcts in the right frontal and parietal lobes, also shown age related changes. He has not had any seizure activity during his
[2023-11-16 16:44] LABS: Glucose Point of Care 134 mg/dl (65-105)
--- NOTE | 2023-11-17 10:05 | WPDNEUROLOGY ---
Neurology EEG Report General Information Date of Study: 11/15/23 TEST Eeg DIAGNOSIS seizures CONDITION OF RECORDING awake drowsy and sleep EEG NUMBER [id number] CLINICAL HISTORY patient reports he fell out of his wheelchair and legs were shaking from neuropathy denies any loss of consciousness or seizures EEG DESCRIPTION background rhythm consists of low-voltage 15 to 21 hertz per 2nd beta activity admixed with multiple artifacts. Bilateral symmetrical sleep activity seen with multiple EKG artifacts. Hyperventilation not done. Photic stimulation not done. Non paroxysmal. Nonfocal. Non lateralizing. IMPRESSION No significant abnormalities noted
== END 2023-11-16 18:00 ==
LOC: ANHED 18:56 → ANH2MED 19:10
PROVIDERS: Nurse Practitioner Acute Care; Physician Assistant; Admitting Provider Family Medicine; Emergency Provider Emergency Medicine; PCP Nurse Practitioner Family; Visit Provider Family Medicine
DX: R56.9 Unspecified convulsions (principal); R29.6 Repeated falls; I95.1 Orthostatic hypotension; I13.0 Hypertensive heart and chronic kidney disease with heart failure and stage 1 through stage 4 chronic kidney disease, or unspecified chronic kidney disease; I50.32 Chronic diastolic (congestive) heart failure; N18.30 Chronic kidney disease, stage 3 unspecified; E11.22 Type 2 diabetes mellitus with diabetic chronic kidney disease; D63.1 Anemia in chronic kidney disease; W18.11XA Fall from or off toilet without subsequent striking against object, initial encounter; F41.9 Anxiety disorder, unspecified; N40.0 Benign prostatic hyperplasia without lower urinary tract symptoms; D75.81 Myelofibrosis; D72.829 Elevated white blood cell count, unspecified; Z90.81 Acquired absence of spleen; F32.A Depression, unspecified; M25.462 Effusion, left knee; G47.33 Obstructive sleep apnea (adult) (pediatric); E11.51 Type 2 diabetes mellitus with diabetic peripheral angiopathy without gangrene; E11.42 Type 2 diabetes mellitus with diabetic polyneuropathy; Z89.431 Acquired absence of right foot; Z89.412 Acquired absence of left great toe; Z86.73 Personal history of transient ischemic attack (TIA), and cerebral infarction without residual deficits; Z86.711 Personal history of pulmonary embolism; Z87.891 Personal history of nicotine dependence; Z79.84 Long term (current) use of oral hypoglycemic drugs; Z79.4 Long term (current) use of insulin; Z79.1 Long term (current) use of non-steroidal anti-inflammatories (NSAID); Z79.51 Long term (current) use of inhaled steroids; Z79.899 Other long term (current) drug therapy; Z79.85 Long-term (current) use of injectable non-insulin antidiabetic drugs; Z82.49 Family history of ischemic heart disease and other diseases of the circulatory system
CPT/HCPCS: 36415; 70450; 70553; 71046; 73562; 80048; 80053; 80307; 81001; 82948; 83036; 83735; 84145; 85025; 85027; 93005; 94640; 95816; 96372; 96374; 96375; 99285; A9270; A9577; G0378; J1815; J1953; J3360; J3475

== ENCOUNTER 2023-12-01 01:20 | Emergency (ER) | payer MEDICARE, MEDICAID, SELFPAY ==
--- NOTE | ~2023-12-01 | XR_ITS ---
Portable chest x-ray Comparison: 11/13/2023 Clinical History: Dyspnea Findings: Lungs are clear, without focal consolidation or pleural effusion. Cardiomediastinal silho uette is stable. Bones and soft tissues are unremarkable. Impression: Clear lungs. Reviewed, dictated and finalized at location . ION OPERATOR Impression: Clear lungs.
--- NOTE | ~2023-12-01 | CT_ITS ---
CT Scan of the Chest without Contrast: Clinical Indication: Pneumonia Technique: Contiguous sections were acquired throughout the chest without intravenous contrast. Dose reduction technique was used on this scan by utilizing automated exposure control and iterative recon struction technique. The dose-length product (DLP) was 737.31 mGy-cm. COMPARISON: 05/12/2023 Findings: There is no evidence of any significant mediastinal, hilar or axillary lymphadenopathy. The mediastin al soft tissues appear normal. There is no evidence of pleural or pericardial effusion. Stable calcified right middle lobe granuloma. Lungs are otherwise clear. Images through the upper abdomen reveal large left adrenal myelolipoma and evidence of splenectomy.. Impression: No significant pulmonary abnormality. Stable left adrenal myelolipoma. Reviewed, dictated and finalized at [facility]. L OFFSET PRINTER Impression: No significant pulmonary abnormality. Stable left adrenal myelolipoma.
[2023-12-01 01:20] VITALS: BP 156/57; PULSE 110; RESP 20; TEMP 36.9; O2SAT 99
[2023-12-01 01:27] VITALS: BP 156/57; PULSE 112; PULSE 113; RESP 16; TEMP 36.9; O2SAT 98
--- NOTE | 2023-12-01 02:17 | ECG_ITS ---
Measurements Intervals [place] Rate: 108 P: 39 MA: 156 QRS: 15 QRSD: 88 T: 53 QT: 322 QTc: 433 Interpretive Statements SINUS TACHYCARDIA WITH OCCASIONAL SUPRAVENTRICULAR PREMATURE COMPLEXES NONSPECIFIC T-WAVE ABNORMALITY ABNORMAL ECG COMPARED TO ECG 11/13/2023 15:45:59 T-WAVE ABNORMALITY NOW PRESENT Electronically Signed On 12-01-2023 11:51:31 [employer] by Charlie Kemp M.D.
[2023-12-01 02:31] VITALS: BP 151/66; PULSE 111; O2SAT 92
[2023-12-01 02:32] VITALS: O2SAT 97
--- NOTE | 2023-12-01 02:54 | ED_ITS ---
HPI - General Adult General Chief complaint: Unspecified Stated complaint: PAIN IN BACK FROM COUGHING Time Seen by Provider: 12/01/23 01:43 History of Present Illness HPI narrative: this is a 63-year-old male presenting ED with a chief complaint of cough and back pain. Patient had a chest x-ray 2 days ago at his group home and was diagnosed with pneumonia. He was sent to the emergency department [facility] and was discharged to group home saying they did not feel he had pn eumonia. Since then the patient is continued to have a cough it is now complaining of pain between the shoulder blades of his back. He says the pain is worse when he coughs. Denies fevers chills chest pain abdominal pain or urinary symptoms. The patient is well known to EMS for frequently calling 911 for trivial complaints. It had become so frequent that the EMS chief had to speak with the patient about misusing the 911 emergency response services. Related Data Home Medications Medication Instructions Recorded Confirmed budesonide-formoterol HFA 160 2 puff inhalation Q12H 11/08/20 11/13/23 mcg-4.5 mcg/actuation aerosol inhaler (Symbicort) cholecalciferol (vitamin D3) 1,250 1,250 mcg PO WEEKLY 11/08/20 11/13/23 mcg (50,000 unit) capsule montelukast 10 mg tablet 10 mg PO HS 11/08/20 11/13/23 pregabalin 100 mg capsule (Lyrica) 100 mg PO Q12H 07/17/22 11/13/23 magnesium oxide 400 mg (241.3 mg 400 mg PO BID 08/26/22 11/13/23 magnesium) tablet zolpidem 10 mg tablet (Ambien) 10 mg PO HS PRN Insomnia 12/24/22 11/13/23 metformin 1,000 mg tablet 1,000 mg PO Q12H 01/11/23 11/13/23 pravastatin 40 mg tablet 40 mg PO HS 01/11/23 11/13/23 insulin aspart U-100 100 unit/mL 8 unit subcut ACINSULIN 05/30/23 11/13/23 (3 mL) subcutaneous pen (Novolog FlexPen U-100 Insulin aspart) insulin detemir U-100 100 unit/mL 54 unit subcut DAILY 05/30/23 11/13/23 (3 mL) subcutaneous pen (Levemir FlexPen) torsemide 20 mg tablet 20 mg PO DAILY PRN Swellng 05/30/23 11/13/23 Imodium A-D 2 mg PO BID PRN Diarrhea 09/09/23 11/13/23 Refresh 0.5 % EACH EYE BID PRN Dry Eye(S) 09/09/23 11/13/23 acetaminophen 650 mg PO Q4H PRN minor pain and 09/09/23 11/13/23 fever cetirizine 10 mg PO QAM 09/09/23 11/13/23 dulaglutide 0.75 mg/0.5 mL 0.5 mg subcut WEEKLY 09/09/23 11/13/23 subcutaneous pen injector (Trulicity) lactase 9,000 units PO AC 09/09/23 11/13/23 metolazone 2.5 mg tablet See Rx Instructions .Route .COMPLEX 09/09/23 11/13/23 mupirocin 2 % topical ointment 2 applic topical BID 09/09/23 11/13/23 Gemtesa 75 mg PO DAILY 11/13/23 11/13/23 tamsulosin 0.4 mg capsule 0.4 mg PO HS 11/13/23 11/13/23 venlafaxine 75 mg tablet 75 mg PO Q12H 11/13/23 11/13/23 Allergies Allergy/AdvReac Type Severity Reaction Status Date / Time naproxen Allergy Intermediate SWELLING Verified 12/01/23 01:28 cefepime Allergy Unknown Blister Verified 12/01/23 01:28 iohexol Allergy Unknown Unknown Verified 12/01/23 01:28 [From contrast - CT, X-RAY] iodine Allergy Other Verified 12/01/23 01:28 vancomycin AdvReac Diarrhea Verified 12/01/23 01:28 [facility] Past Medical History Medical History Anemia Anxiety Benign prostatic hyperplasia Cerebrovascular accident (2014) Chronic anticoagulation Chronic kidney disease Claustrophobia Depression Diastolic heart failure Echo 08/2022: Mild concentric hypertrophy, systolic function 74%, grade 2 diastolic dysfunction, mild left atrial enlargement, right ventricle not well visualized but grossly normal Enterobacter sepsis Secondary to UTI. Fracture of proximal end of left humerus Left cervical radiculopathy Migraines MRSA infection Myelofibrosis Neuropathy Obstructive sleep apnea Noncompliant with CPAP Peripheral vascular disease Pulmonary embolism (01/2020) Type 2 diabetes mellitus Surgical History Surgical History Amputation of right forefoot Amputation of right great toe History of cholecystectomy (1985) History of hernia repair History of splenectomy (08/2019) Left great toe amputee (04/2020) Partial Family History Family History Father , 75 Congestive heart failure Mother , 74 Brain bleed Sibling , Sister Cancer Dementia Social History Social History Social History: Surrogate medical decision maker: Gloria Esparza (sister) Code status: Full code. Smoking packs per day: 1 Smoking cigarettes per day: 20.0 Years smoked: 20 Smoking pack-years: 20.00 Smoking status: Former smoker Tobacco type: cigarettes Smoking end date: 10/18/94 Alcohol intake: never Drinks per week: 1 Alcohol use details: 1/month Substance use: former Substance use type: marijuana Do You Feel Safe in your Home?: Yes Lack of Transportation: No Lack of Food: Never True Current Housing: I Have Housing Concerned About Future Housing: No Difficulty Paying Gas/Electric Bills: No Difficulty Paying for Meds: YES Currently Unemployed: No Education: Bachelor's Degree Difficulty w/ Childcare or Family Care: No Living arrangements: with family Occupation/Education: other Additional occupation/education comments: On disability. Spiritual care concerns: No Agree to blood products: Yes Exam Narrative: APPEARANCE: chronically unwell appearing, nasal cannula in place, No apparent distress. Head: atraumatic. EYES: EOMI, NOSE: Atraumatic NECK: Trachea midline RESPIRATORY: tachypneic, on 2 L O2 which is his baseline CARDIOVASCULAR: tachycardic, no peripheral edema ABDOMINAL: truncal obesity, soft nontender MUSCULOSKELETAl: No obvious deformities NEURO: Alert. Moving 4/4 extremities SKIN:: Warm, dry. Normal color PSYCHIATRIC: Normal affect Course Vital Signs Vital signs: Vital Signs Temperature 98.4 F 12/01/23 01:20 Pulse Rate 110 H 12/01/23 01:20 Respiratory Rate 20 12/01/23 01:20 Blood Pressure 156/57 H 02/14/24 01:20 Pulse Oximetry 99 12/01/23 01:20 Oxygen Delivery Room Air 12/01/23 01:20 Temperature 98.4 F 12/01/23 01:27 Pulse Rate 111 H 12/01/23 02:31 Respiratory Rate 16 12/01/23 01:27 Blood Pressure 151/66 H 12/01/23 02:31 Pulse Oximetry 97 12/01/23 02:32 Oxygen Delivery Nasal Cannula 12/01/23 02:32 Oxygen Flow Rate 2 12/01/23 02:32 Medical Decision Making MDM Narrative Medical decision making narrative: -Course:63-year-old male is well known to our emergency department presenting with pain between his shoulder blades. Patient is insistent that he has pneumonia. Patient has some chronic health issues overall and is chronically unwell so a broader workup was ordered. He was found to have the same chronically elevated white blood cell count that he always has. Additionally he was tachycardic which on review of all of his previous visits is a chronic issue for him as well. The patient himself acknowledged his persistently elevated white blood cell count heart rate. The rest of his workup was within normal limits with no signs of infection. Patient was insistent that he had pneumonia and a CT chest was ordered which showed no evidence of infection. Patient was treated with Tylenol and discharged back to group home. -DDX includes but is not limited to: CHF, COPD, pneumonia, -Co-morbidities complicating care: anxiety, diabetes, hypertension, heart failure, COPD -Social determinants of health: group home resident -Hx from independent Sources: EMS report -Independent interpretation of studies: white count elevated at 21. Patient has chronic elevations in white blood cell count. rest his laboratory studies are within acceptable limits. Urine not indicative infection. Viral swabs negative. -Interventions: One thousand Tylenol -Shared decision making / Disposition: discharge -RX Tylenol, Kellysin Vital Signs Vital Signs: Vital Signs Temperature 98.4 F 12/01/23 01:20 Pulse Rate 110 H 12/01/23 01:20 Respiratory Rate 20 12/01/23 01:20 Blood Pressure 156/57 H 12/01/23 01:20 Pulse Oximetry 99 12/01/23 01:20 Oxygen Delivery Room Air 12/01/23 01:20 Temperature 98.4 F 12/01/23 01:27 Pulse Rate 111 H 12/01/23 02:31 Respiratory Rate 16 12/01/23 01:27 Blood Pressure 151/66 H 12/01/23 02:31 Pulse Oximetry 97 12/01/23 02:32 Oxygen Delivery Nasal Cannula 12/01/23 02:32 Oxygen Flow Rate 2 12/01/23 02:32 Discharge Plan Discharge Clinical Impression: Malingering, Back pain Patient Disposition: Home, Self-Care Condition: Stable Instructions: Antibiotic Form, Acute Cough (ED) Additional Instructions: please take Tylenol or Robitussin for cough and back pain. Prescriptions: New acetaminophen 500 mg tablet 1,000 mg PO TID PRN (Reason: catalina) 7 Days Qty: 42 0RF Robitussin Cough-Chest Guillermo DM 10-200 mg capsule 1 tab-cap PO ONCE PRN (Reason: cough) Qty: 14 0RF No Action montelukast 10 mg tablet 10 mg PO HS cholecalciferol (vitamin D3) 1,250 mcg (50,000 unit) capsule 1,250 mcg PO WEEKLY Rx Instructions: Tuesdays budesonide-formoterol [Symbicort] 160-4.5 mcg/actuation HFA aerosol inhaler 2 puff inhalation Q12H metoprolol succinate [Toprol XL] 25 mg Tablet Extended Release 24 Hr 25 mg PO Q12HR Qty: 14 0RF magnesium oxide 400 mg (241.3 mg magnesium) tablet 400 mg PO BID Eliquis 5 mg Tablet 5 mg PO Q12HR Qty: 60 0RF diazepam 2 mg tablet 2 mg PO Q12H PRN (Reason: Anxiety) Qty: 12 0RF metolazone 2.5 mg tablet See Rx Instructions .ROUTE .COMPLEX Rx Instructions: 2.5 mg orally every other day mupirocin 2 % ointment 2 applic TOPICAL BID Trulicity 0.75 mg/0.5 mL pen injector 0.5 mg SUBCUT WEEKLY Rx Instructions: Wednesday Imodium A-D tablet 2 mg PO BID PRN (Reason: Diarrhea) Refresh 0.5 % EACH EYE BID PRN (Reason: Dry Eye(S)) acetaminophen tablet 650 mg PO Q4H PRN (Reason: minor pain and fever) cetirizine 10 mg PO QAM lactase tablet 9,000 units PO AC Rx Instructions: 1-2 tabs pantoprazole [Protonix] 40 mg tablet,delayed release (DR/EC) 40 mg PO QAM Qty: 30 0RF pregabalin [Lyrica] 100 mg capsule 100 mg PO Q12H zolpidem [Ambien] 10 mg tablet 10 mg PO HS PRN (Reason: Insomnia) pravastatin 40 mg Tablet 40 mg PO HS metformin 1,000 mg Tablet 1,000 mg PO Q12H torsemide 20 mg tablet 20 mg PO DAILY PRN (Reason: Swellng) insulin aspart U-100 [Novolog FlexPen U-100 Insulin] 100 unit/mL (3 mL) insulin pen 8 unit SUBCUT ACINSULIN Levemir FlexPen 100 unit/mL (3 mL) insulin pen 54 unit SUBCUT DAILY venlafaxine 75 mg tablet 75 mg PO Q12H tamsulosin 0.4 mg capsule 0.4 mg PO HS Gemtesa 75 mg PO DAILY levetiracetam [Keppra] 500 mg Tablet 500 mg PO Q12HR Qty: 60 1RF Follow-up/Referrals: Reed,ELIDIA Rhodes [Primary Care Provider] -
[2023-12-01 03:05] LABS: Basophils Absolute Auto 0.1 K/mm3 (0.0-0.1); Basophils Percent Auto 0.6 % (0.2-1.2); Eosinophils Absolute Auto 0.4 K/mm3 (0-0.3); Hematocrit 38.9 % (42.0-52.0); Immature Granulocyte Absolute 0.31 K/mm3 (0.00-0.031); Immature Granulocyte Percent A 1.5 % (0-0.5); Lymphocytes Absolute Auto 2.95 K/mm3 (0.9-3.2); Lymphocytes Percent Auto 14.1 % (18.3-44.2); Mean Corpuscular HGB Conc 33.4 g/dl (32-36); Mean Corpuscular Hemoglobin 30.2 pg (26-34); Mean Corpuscular Volume 90.5 fl (80-100); Mean Platelet Volume 10.7 fl (7.4-10.4); Monocytes Absolute Auto 1.9 K/mm3 (0.1-0.6); Monocytes Percent Auto 9.2 % (2.6-8.5); Neutrophils Absolute Auto 15.2 K/mm3 (1.3-6.7); Neutrophils Percent Auto 72.6 % (45.5-73.1); Nucleated Red Blood Cells Perc 0.1 % (0.0-0.2); Platelet Count Result 501 k/mm3 (150-375); Red Cell Distribution Width 13.2 % (11.5-14.5)
[2023-12-01] MEDS: ACETAMINOPHEN 500 MG TABLET 1000 MG PO (03:10)
[2023-12-01 03:15] LABS: Alanine Aminotransferase 17 U/L (6-50); Albumin Level 3.3 g/dL (3.5-5.1); Alkaline Phosphatase 126 U/L (38-126); Anion Gap 5 mmol/L (8-16); Aspartate Amino Transferase 23 U/L (17-59); Bilirubin,Total 0.4 mg/dL (0.2-1.3); Blood Urea Nitrogen 27 mg/dL (9-20); Calcium 9.4 mg/dL (8.4-10.2); Carbon Dioxide 27 mmol/L (22-30); Chloride 102 mmol/L (98-107); Estimated CRCL calculation 78 ml/min; Estimated Glomerular Filt Rate > 60; Glucose 291 mg/dL (65-110); Lipase 228 U/L (23-300); Magnesium 1.3 mg/dL (1.6-2.3); Phosphorus 3.1 mg/dL (2.5-4.5); Potassium 4.3 mmol/L (3.4-5.0); Sodium 134 mmol/L (137-145)
[2023-12-01 03:19] LABS: INR 1.1; Prothrombin Time 14.3 Seconds (11.1-14.7)
[2023-12-01 03:20] LABS: Partial Thromboplastin Time 35.1 SECONDS (22.3-36.8)
[2023-12-01 03:27] LABS: Troponin I < 0.012 ng/mL (0.000-0.034)
[2023-12-01 03:39] LABS: NT Pro B Type Natriuretic Pept 455 pg/mL (19.9-100)
[2023-12-01 03:47] LABS: Influenza A QL RT-PCR Negative (Negative); Influenza B QL RT-PCR Negative (Negative); RSV RNA, RT-PCR Negative (Negative); SARS-CoV-2 RNA PCR Negative (Negative)
[2023-12-01] MEDS: LIDOCAINE HCL 2% GEL UROJET 10 ML PKG MUCOUS MEM (04:57)
[2023-12-01 05:03] LABS: Appearance Urine Clear (Clear); Bacteria Urine None Seen /hpf; Bilirubin Urine Negative (Negative); Blood Urine Trace (Negative); Color Urine Yellow (Yellow); Glucose Urine UA 3+ mg/dL (Negative); Ketones Urine Negative (Negative); Leukocyte Esterase Ur Negative LEU/UL (Negative); Nitrate Urine Negative (Negative); Non Pathogenic Casts 0-2; Protein Urine 3+ mg/dL (Negative); Squamous Epithelial Cell Urine None seen /hpf (Few); Urobilinogen Urine 0.2 mg/dL (<2.0); WBC Urine 0-5 /hpf; pH Urine 6.5 (5.0-9.0)
[2023-12-01 05:04] LABS: Add Urine Microscopic? YES
[2023-12-01 05:59] LABS: Free T4 Free Thyroxine Reflex 1.16 ng/dL (0.78-2.19)
[2023-12-01 06:10] VITALS: BP 138/81; PULSE 111; RESP 19; O2SAT 98
[2023-12-01 06:39] VITALS: BP 167/80; PULSE 118; RESP 20; O2SAT 97
[2023-12-01 06:44] LABS: Total Triiodothyronine (T3) 1.64 NG/ML (0.97-1.69)
--- NOTE | 2023-12-01 07:44 | PC.NURSE ---
breakfast tray ordered for pt at this time
== END 2023-12-01 09:52 | disposition home or self-care (01) ==
PROVIDERS: Emergency Provider Emergency Medicine; PCP Nurse Practitioner Family
DX: M54.9 Dorsalgia, unspecified (principal); Z76.5 Malingerer [conscious simulation]; D64.9 Anemia, unspecified; F41.9 Anxiety disorder, unspecified; Z79.01 Long term (current) use of anticoagulants; N18.9 Chronic kidney disease, unspecified; F32.A Depression, unspecified; I50.9 Heart failure, unspecified; G47.30 Sleep apnea, unspecified; E11.9 Type 2 diabetes mellitus without complications; Z79.4 Long term (current) use of insulin; Z20.822 Contact with and (suspected) exposure to COVID-19
CPT/HCPCS: 36415; 71045; 71250; 80053; 81001; 83605; 83690; 83735; 83880; 84100; 84439; 84443; 84480; 84484; 85025; 85610; 85730; 87040; 87637; 93005; 99284; A9270

== ENCOUNTER 2023-12-04 00:25 | Emergency (ER) | payer MEDICARE, MEDICAID, SELFPAY ==
[2023-12-04] VITALS (25 sets, daily range): BP systolic 138–182; BP diastolic 67–114; PULSE 98–124; RESP 15–28; TEMP 36.3–36.6; O2SAT 93–100
--- NOTE | ~2023-12-04 | XR_ITS ---
EXAMINATION: XR chest 1V DATE: 12/04/2023 10:31 INDICATION: Shortness of breath and cough TECHNIQUE: frontal view of the chest was obtained. COMPARISON: Chest radiograph and CT dated 12/01/2023 FINDINGS: Again seen is a small region of increased subpleural fat at the lateral aspect of the right major fis sure seen is a lenticular opacity lateral right lower lung zone. No airspace opacities, pulmonary aislinn ma, pleural effusion or pneumothorax. Heart size is normal. There are multiple old left-sided rib fra ctures. Cholecystectomy clips in right upper quadrant. IMPRESSION: 1. No acute cardiopulmonary disease. Reviewed, dictated and finalized at location [facility]. [facility]
--- NOTE | 2023-12-04 03:13 | PC.NURSE ---
Patient stated to other patients in waiting room that he felt like he was going to pass out. Patient was brought back to triage for new vitals. BP: 163/70, P: 105 bpm, T: 97.8, RR: 15, and SPO2: 95% 3L/min via nasal cannula.
--- NOTE | 2023-12-04 05:43 | ECG_ITS ---
Measurements Intervals [place] Rate: 101 P: 36 NV: 146 QRS: 9 QRSD: 105 T: 99 QT: 340 QTc: 441 Interpretive Statements BASELINE MOTION ARTIFACT/POOR DATA QUALITY SINUS RHYTHM WITH PACS NONSPECIFIC T-WAVE ABNORMALITY ABNORMAL ECG COMPARED TO ECG 12/01/2023 01:26:28 NO OBVIOUS CHANGE HOWEVER THIS TRACING IS OF SUBOPTIMAL QUALITY Electronically Signed On 12-04-2023 8:32:22 STONECUTTER ASSISTANT by Jeremías Sellers M.D.
--- NOTE | 2023-12-04 05:44 | PC.NURSE ---
Patient states his chest is hurting w/o coughing now. EKG ordered.
--- NOTE | 2023-12-04 06:00 | PC.NURSE ---
Pt stating that he was leaving, did not want to stay. stated I want to go to [facility] ems called for transportation
--- NOTE | 2023-12-04 08:00 | PC.NURSE ---
pt now wishing to stay, I need to get checked out ems transport cancelled
--- NOTE | 2023-12-04 09:30 | ED.SOB ---
HPI - SOB/Dyspnea General Chief Complaint: Shortness of Breath/Dyspnea Stated Complaint: SOB, chest and back hurt when coughing Time Seen by Provider: 12/04/23 09:23 Source: patient and old records reviewed Mode of arrival: EMS Limitations: no limitations History of Present Illness HPI Narrative: Patient is a 63-year-old male who presents the ED via EMS with report of cough. Patient is resident of local alf. Per records, patient is seen in the ED frequently for various complaints, seen by EMS frequently as well. Patient reports having a persistent cough for the last 1 week. He complains of pain in his upper back with coughing. Complains of shortness of breath with coughing, denies pain or shortness of breath at rest. Denies chest pain at rest. Also reports mild sore throat. Denies fevers, congestion, nausea, vomiting, abdominal pain. Patient was seen in our ED for similar symptoms on 12/01, prescribed Tylenol and Robitussin. He states the alf has been giving his Robitussin to other residents and he is now out of the medication. Related Data Home Medications Medication Instructions Recorded Confirmed budesonide-formoterol HFA 160 2 puff inhalation Q12H 11/08/20 11/13/23 mcg-4.5 mcg/actuation aerosol inhaler (Symbicort) cholecalciferol (vitamin D3) 1,250 1,250 mcg PO WEEKLY 11/08/20 11/13/23 mcg (50,000 unit) capsule montelukast 10 mg tablet 10 mg PO HS 11/08/20 11/13/23 pregabalin 100 mg capsule (Lyrica) 100 mg PO Q12H 07/17/22 11/13/23 magnesium oxide 400 mg (241.3 mg 400 mg PO BID 08/26/22 11/13/23 magnesium) tablet zolpidem 10 mg tablet (Ambien) 10 mg PO HS PRN Insomnia 12/24/22 11/13/23 metformin 1,000 mg tablet 1,000 mg PO Q12H 01/11/23 11/13/23 pravastatin 40 mg tablet 40 mg PO HS 01/11/23 11/13/23 insulin aspart U-100 100 unit/mL 8 unit subcut ACINSULIN 05/30/23 11/13/23 (3 mL) subcutaneous pen (Novolog FlexPen U-100 Insulin aspart) insulin detemir U-100 100 unit/mL 54 unit subcut DAILY 05/30/23 11/13/23 (3 mL) subcutaneous pen (Levemir FlexPen) torsemide 20 mg tablet 20 mg PO DAILY PRN Swellng 05/30/23 11/13/23 Imodium A-D 2 mg PO BID PRN Diarrhea 09/09/23 11/13/23 Refresh 0.5 % EACH EYE BID PRN Dry Eye(S) 09/09/23 11/13/23 acetaminophen 650 mg PO Q4H PRN minor pain and 09/09/23 11/13/23 fever cetirizine 10 mg PO QAM 09/09/23 11/13/23 dulaglutide 0.75 mg/0.5 mL 0.5 mg subcut WEEKLY 09/09/23 11/13/23 subcutaneous pen injector (Trulicity) lactase 9,000 units PO AC 09/09/23 11/13/23 metolazone 2.5 mg tablet See Rx Instructions .Route .COMPLEX 09/09/23 11/13/23 mupirocin 2 % topical ointment 2 applic topical BID 09/09/23 11/13/23 Gemtesa 75 mg PO DAILY 11/13/23 11/13/23 tamsulosin 0.4 mg capsule 0.4 mg PO HS 11/13/23 11/13/23 venlafaxine 75 mg tablet 75 mg PO Q12H 11/13/23 11/13/23 Allergies Allergy/AdvReac Type Severity Reaction Status Date / Time naproxen Allergy Intermediate SWELLING Verified 12/01/23 01:28 cefepime Allergy Unknown Blister Verified 12/01/23 01:28 iohexol Allergy Unknown Unknown Verified 12/01/23 01:28 [From contrast - CT, X-RAY] iodine Allergy Other Verified 12/01/23 01:28 vancomycin AdvReac Diarrhea Verified 12/01/23 01:28 Review of Systems Review of Systems: CONSTITUTIONAL: Denies fever, chills, or sweats. ENT: See HPI. CARDIOVASCULAR: See HPI. RESPIRATORY: See HPI. GASTROINTESTINAL: Denies abdominal pain, nausea, vomiting. MUSCULOSKELETAL: See HPI All systems reviewed & are unremarkable except as noted in HPI and below PMFSH Past Medical History Medical History Anemia Anxiety Benign prostatic hyperplasia Cerebrovascular accident (2014) Chronic anticoagulation Chronic kidney disease Claustrophobia Depression Diastolic heart failure Echo 08/2022: Mild concentric hypertrophy, systolic function 74%, grade 2 diastolic dysfunction, mild left atrial enlargement, right ve
[2023-12-04] MEDS: IPRATROPIUM BR 0.02% INH SOLN 0.5 MG/2.5 ML VIAL 1.5 MG INHALATION (11:00)
[2023-12-04] MEDS: LEVALBUTEROL NEB 1.25 MG/3 ML 2.5 MG INHALATION (11:00)
[2023-12-04 11:03] LABS: Appearance Urine Clear (Clear); Bacteria Urine None Seen /hpf; Bilirubin Urine Negative (Negative); Blood Urine Trace (Negative); Color Urine Yellow (Yellow); Glucose Urine UA 2+ mg/dL (Negative); Ketones Urine Negative (Negative); Leukocyte Esterase Ur Negative LEU/UL (Negative); Nitrate Urine Negative (Negative); Non Pathogenic Casts 0-2; Protein Urine 3+ mg/dL (Negative); Specific Grav Ur 1.018 (1.001-1.035); Squamous Epithelial Cell Urine None seen /hpf (Few); Urobilinogen Urine 0.2 mg/dL (<2.0); WBC Urine 0-5 /hpf
[2023-12-04 11:09] LABS: Troponin I < 0.012 ng/mL (0.000-0.034)
[2023-12-04 11:09] LABS: Add Urine Microscopic? YES
[2023-12-04 11:18] LABS: Influenza A QL RT-PCR Negative (Negative); Influenza B QL RT-PCR Negative (Negative); RSV RNA, RT-PCR Negative (Negative); SARS-CoV-2 RNA PCR Negative (Negative)
[2023-12-04] MEDS: ACETAMINOPHEN 500 MG TABLET 1000 MG PO (11:21)
--- NOTE | 2023-12-04 12:16 | PC.NURSE ---
called [facility] at 1159 and spoke to Donna to give report and pt discharge plan
== END 2023-12-04 12:55 ==
PROVIDERS: Emergency Provider Physician Assistant; PCP Nurse Practitioner Family
DX: J06.9 Acute upper respiratory infection, unspecified (principal); R05.2 Subacute cough; Z20.822 Contact with and (suspected) exposure to COVID-19; E11.22 Type 2 diabetes mellitus with diabetic chronic kidney disease; N18.9 Chronic kidney disease, unspecified; E11.51 Type 2 diabetes mellitus with diabetic peripheral angiopathy without gangrene; I73.9 Peripheral vascular disease, unspecified; I50.30 Unspecified diastolic (congestive) heart failure; D64.9 Anemia, unspecified; N40.0 Benign prostatic hyperplasia without lower urinary tract symptoms; G47.33 Obstructive sleep apnea (adult) (pediatric); Z86.14 Personal history of Methicillin resistant Staphylococcus aureus infection; Z86.73 Personal history of transient ischemic attack (TIA), and cerebral infarction without residual deficits; Z87.891 Personal history of nicotine dependence; Z89.431 Acquired absence of right foot; Z90.49 Acquired absence of other specified parts of digestive tract; Z90.81 Acquired absence of spleen; Z79.4 Long term (current) use of insulin; Z79.85 Long-term (current) use of injectable non-insulin antidiabetic drugs; Z79.01 Long term (current) use of anticoagulants; R94.31 Abnormal electrocardiogram [ECG] [EKG]
CPT/HCPCS: 36415; 71045; 81001; 84484; 87637; 93005; 94640; 99284; A9270

== ENCOUNTER 2023-12-06 18:42 | Emergency (ER) | payer MEDICARE, MEDICAID, SELFPAY ==
--- NOTE | ~2023-12-06 | XR_ITS ---
EXAMINATION: XR chest 1V portable Exam Date/Time: 12/06/2023 21:15 ORACLE ERP DEVELOPER HISTORY: CP with cough Comparison: 12/04/2023; CT chest 12/01/2023. RESULT: Lines, tubes, and devices: None. Lungs and pleura: Mild diffuse reticular opacities. Prominent right lateral major fissure extrapleur al fat. Cardiomediastinal silhouette: Stable. Other: No acute osseous or upper abdominal finding. IMPRESSION: Mild initial edema. Reviewed, dictated and finalized at location K. LE ERP DEVELOPER IMPRESSION: Mild initial edema.
[2023-12-06 18:43] VITALS: BP 156/83; PULSE 118; RESP 22; TEMP 36.4; O2SAT 100
[2023-12-06 18:52] VITALS: PULSE 118
[2023-12-06 18:54] VITALS: O2SAT 98
--- NOTE | 2023-12-06 19:10 | PC.NURSE ---
Report given to Prateek CLARK, all questions answered
[2023-12-06 19:15] VITALS: BP 175/119; PULSE 129; PULSE 131; RESP 30; O2SAT 95
--- NOTE | 2023-12-06 20:04 | ECG_ITS ---
Measurements Intervals [place] Rate: 117 P: ND: 0 QRS: 13 QRSD: 87 T: 62 QT: 318 QTc: 445 Interpretive Statements BASELINE ARTIFACT WHICH LIMITS INTERPRETATION, HOWEVER, LIKELY SINUS RHYTHM WIHT FREQUENT PACS PVC NONSPECIFIC T-WAVE ABNORMALITY ABNORMAL RHYTHM ECG COMPARED TO ECG 12/04/2023 06:00:39 NO SIGNIFICANT CHANGES Electronically Signed On 12-07-2023 15:19:33 DRY HOUSE TENDER by Hola Durán M.D.
--- NOTE | 2023-12-06 20:08 | ED.GENADULT ---
HPI - General Adult General Chief complaint: Shortness of Breath/Dyspnea Stated complaint: SOB, CP Time Seen by Provider: 12/06/23 18:52 History of Present Illness HPI narrative: 63-year-old male presents to the emergency department for evaluation for recurrent chest pain with coughing. Patient does have a history of diabetic peripheral neuropathy, seizures, CHF, tachycardia, PE, COPD, CVA. Patient is consistently tachycardic upon presentation to the emergency department. Patient states he only has chest pain with coughing. Related Data Home Medications Medication Instructions Recorded Confirmed budesonide-formoterol HFA 160 2 puff inhalation Q12H 11/08/20 11/13/23 mcg-4.5 mcg/actuation aerosol inhaler (Symbicort) cholecalciferol (vitamin D3) 1,250 1,250 mcg PO WEEKLY 11/08/20 11/13/23 mcg (50,000 unit) capsule montelukast 10 mg tablet 10 mg PO HS 11/08/20 11/13/23 pregabalin 100 mg capsule (Lyrica) 100 mg PO Q12H 07/17/22 11/13/23 magnesium oxide 400 mg (241.3 mg 400 mg PO BID 08/26/22 11/13/23 magnesium) tablet zolpidem 10 mg tablet (Ambien) 10 mg PO HS PRN Insomnia 12/24/22 11/13/23 metformin 1,000 mg tablet 1,000 mg PO Q12H 01/11/23 11/13/23 pravastatin 40 mg tablet 40 mg PO HS 01/11/23 11/13/23 insulin aspart U-100 100 unit/mL 8 unit subcut ACINSULIN 05/30/23 11/13/23 (3 mL) subcutaneous pen (Novolog FlexPen U-100 Insulin aspart) insulin detemir U-100 100 unit/mL 54 unit subcut DAILY 05/30/23 11/13/23 (3 mL) subcutaneous pen (Levemir FlexPen) torsemide 20 mg tablet 20 mg PO DAILY PRN Swellng 05/30/23 11/13/23 Imodium A-D 2 mg PO BID PRN Diarrhea 09/09/23 11/13/23 Refresh 0.5 % EACH EYE BID PRN Dry Eye(S) 09/09/23 11/13/23 acetaminophen 650 mg PO Q4H PRN minor pain and 09/09/23 11/13/23 fever cetirizine 10 mg PO QAM 09/09/23 11/13/23 dulaglutide 0.75 mg/0.5 mL 0.5 mg subcut WEEKLY 09/09/23 11/13/23 subcutaneous pen injector (Trulicity) lactase 9,000 units PO AC 09/09/23 11/13/23 metolazone 2.5 mg tablet See Rx Instructions .Route .COMPLEX 09/09/23 11/13/23 mupirocin 2 % topical ointment 2 applic topical BID 09/09/23 11/13/23 Gemtesa 75 mg PO DAILY 11/13/23 11/13/23 tamsulosin 0.4 mg capsule 0.4 mg PO HS 11/13/23 11/13/23 venlafaxine 75 mg tablet 75 mg PO Q12H 11/13/23 11/13/23 Allergies Allergy/AdvReac Type Severity Reaction Status Date / Time naproxen Allergy Intermediate SWELLING Verified 12/06/23 18:53 cefepime Allergy Unknown Blister Verified 12/06/23 18:53 iohexol Allergy Unknown Unknown Verified 12/06/23 18:53 [From contrast - CT, X-RAY] iodine Allergy Other Verified 12/06/23 18:53 vancomycin AdvReac Diarrhea Verified 12/06/23 18:53 Review of Systems Review of Systems: All systems reviewed & are unremarkable except as noted in HPI and below PMFSH Past Medical History Medical History Anemia Anxiety Benign prostatic hyperplasia Cerebrovascular accident (2014) Chronic anticoagulation Chronic kidney disease Claustrophobia Depression Diastolic heart failure Echo 08/2022: Mild concentric hypertrophy, systolic function 74%, grade 2 diastolic dysfunction, mild left atrial enlargement, right ventricle not well visualized but grossly normal Enterobacter sepsis Secondary to UTI. Fracture of proximal end of left humerus Left cervical radiculopathy Migraines MRSA infection Myelofibrosis Neuropathy Obstructive sleep apnea Noncompliant with CPAP Peripheral vascular disease Pulmonary embolism (01/2020) Type 2 diabetes mellitus Surgical History Surgical History Amputation of right forefoot Amputation of right great toe History of cholecystectomy (1985) History of hernia repair History of splenectomy (08/2019) Left great toe amputee (04/2020) Partial Family History Family History Father D
[2023-12-06 20:50] LABS: Basophils Absolute Auto 0.1 K/mm3 (0.0-0.1); Basophils Percent Auto 0.5 % (0.2-1.2); Eosinophils Absolute Auto 0.5 K/mm3 (0-0.3); Eosinophils Percent Auto 2.2 % (0-4.4); Hematocrit 39.7 % (42.0-52.0); Immature Granulocyte Absolute 0.29 K/mm3 (0.00-0.031); Immature Granulocyte Percent A 1.3 % (0-0.5); Lymphocytes Absolute Auto 2.31 K/mm3 (0.9-3.2); Lymphocytes Percent Auto 10.2 % (18.3-44.2); Mean Corpuscular HGB Conc 32.7 g/dl (32-36); Mean Corpuscular Hemoglobin 30.2 pg (26-34); Mean Corpuscular Volume 92.3 fl (80-100); Mean Platelet Volume 10.9 fl (7.4-10.4); Monocytes Absolute Auto 1.7 K/mm3 (0.1-0.6); Monocytes Percent Auto 7.5 % (2.6-8.5); Neutrophils Absolute Auto 17.7 K/mm3 (1.3-6.7); Neutrophils Percent Auto 78.3 % (45.5-73.1); Nucleated Red Blood Cells Perc 0.1 % (0.0-0.2); Platelet Count Result 475 k/mm3 (150-375); Red Cell Distribution Width 13.9 % (11.5-14.5); White Blood Count 22.6 K/mm3 (4.5-10.0)
[2023-12-06 21:00] LABS: Alanine Aminotransferase 17 U/L (6-50); Albumin Level 3.5 g/dL (3.5-5.1); Alkaline Phosphatase 102 U/L (38-126); Anion Gap 3 mmol/L (8-16); Aspartate Amino Transferase 29 U/L (17-59); Bilirubin,Total 0.5 mg/dL (0.2-1.3); Blood Urea Nitrogen 28 mg/dL (9-20); Calcium 9.3 mg/dL (8.4-10.2); Carbon Dioxide 31 mmol/L (22-30); Chloride 101 mmol/L (98-107); Estimated CRCL calculation 78 ml/min; Estimated Glomerular Filt Rate > 60; Glucose 287 mg/dL (65-110); Potassium 4.5 mmol/L (3.4-5.0); Sodium 135 mmol/L (137-145)
[2023-12-06 21:03] VITALS: BP 153/87; PULSE 121; RESP 19; O2SAT 99
[2023-12-06 21:13] LABS: Influenza A QL RT-PCR Negative (Negative); Influenza B QL RT-PCR Negative (Negative); RSV RNA, RT-PCR Negative (Negative); SARS-CoV-2 RNA PCR Negative (Negative)
[2023-12-06 21:13] LABS: Anisocytosis 1+ (NORMAL); Platelet Estimate Increased (Adequate)
[2023-12-06 21:14] LABS: Acanthocytes 1+ (NORMAL); Large Platelets Present; Schistocytes None Seen (NORMAL)
[2023-12-06 21:22] LABS: Troponin I < 0.012 ng/mL (0.000-0.034)
[2023-12-06 22:29] VITALS: BP 171/75; PULSE 122; RESP 22; O2SAT 97
== END 2023-12-06 22:40 ==
PROVIDERS: Emergency Provider Emergency Medicine; PCP Nurse Practitioner Family
DX: R05.9 Cough, unspecified (principal); Z20.822 Contact with and (suspected) exposure to COVID-19; E11.22 Type 2 diabetes mellitus with diabetic chronic kidney disease; B18.9 Chronic viral hepatitis, unspecified; E11.51 Type 2 diabetes mellitus with diabetic peripheral angiopathy without gangrene; I73.9 Peripheral vascular disease, unspecified; I50.30 Unspecified diastolic (congestive) heart failure; D75.81 Myelofibrosis; D64.9 Anemia, unspecified; N40.0 Benign prostatic hyperplasia without lower urinary tract symptoms; G47.33 Obstructive sleep apnea (adult) (pediatric); Z86.14 Personal history of Methicillin resistant Staphylococcus aureus infection; Z86.73 Personal history of transient ischemic attack (TIA), and cerebral infarction without residual deficits; Z87.891 Personal history of nicotine dependence; Z89.431 Acquired absence of right foot; Z90.49 Acquired absence of other specified parts of digestive tract; Z90.81 Acquired absence of spleen; Z79.4 Long term (current) use of insulin; Z79.85 Long-term (current) use of injectable non-insulin antidiabetic drugs; Z79.01 Long term (current) use of anticoagulants
CPT/HCPCS: 36415; 71045; 80053; 84484; 85025; 87637; 93005; 99284

== ENCOUNTER 2023-12-12 05:33 | Emergency (ER) | payer MEDICARE, MEDICAID, SELFPAY ==
[2023-12-12] VITALS (17 sets, daily range): BP systolic 149–192; BP diastolic 86–93; PULSE 102–117; RESP 16–35; TEMP 36.7–36.8; O2SAT 94–100
--- NOTE | ~2023-12-12 | XR_ITS ---
XR chest 1V portable 12/12/2023 06:09 Indication: Shortness of breath Procedure: AP portable chest Comparison: Comparison to multiple prior studies sequentially, with oldest reviewed study dated 11/13. Findings: Bilateral interstitial infiltrates with peribronchial thickening. Heart size normal. Healed left rib fractures. No acute osseous abnormality. No significant pleural effusion or pneumothorax. Impression: 1: Mild diffuse interstitial infiltrates with peribronchial thickening which may reflect edema or pne umonia. Reviewed, dictated and finalized at location A. N RESOURCES OFFICE ASSISTANT Impression: 1: Mild diffuse interstitial infiltrates with peribronchial thickening which ma y reflect edema or pneumonia.
--- NOTE | 2023-12-12 05:58 | ECG_ITS ---
Measurements Intervals [place] Rate: 109 P: 73 DC: 154 QRS: 13 QRSD: 95 T: 61 QT: 332 QTc: 448 Interpretive Statements SINUS TACHYCARDIA WITH OCCASIONAL SUPRAVENTRICULAR PREMATURE COMPLEXES BASELINE ARTIFACT BORDERLINE ECG COMPARED TO ECG 12/06/2023 18:51:31 SINUS TACHYCARDIA NOW PRESENT Electronically Signed On 12-12-2023 18:24:16 ANIMAL RESEARCHER by Trey Ureña M.D.
[2023-12-12 06:27] LABS: Basophils Absolute Auto 0.1 K/mm3 (0.0-0.1); Basophils Percent Auto 0.6 % (0.2-1.2); Eosinophils Absolute Auto 0.2 K/mm3 (0-0.3); Hematocrit 39.3 % (42.0-52.0); Hemoglobin 12.9 g/dL (14.0-18.0); Immature Granulocyte Absolute 0.21 K/mm3 (0.00-0.031); Immature Granulocyte Percent A 1.1 % (0-0.5); Lymphocytes Percent Auto 9.7 % (18.3-44.2); Mean Corpuscular HGB Conc 32.8 g/dl (32-36); Mean Corpuscular Hemoglobin 30.6 pg (26-34); Mean Corpuscular Volume 93.3 fl (80-100); Mean Platelet Volume 11.2 fl (7.4-10.4); Monocytes Absolute Auto 1.4 K/mm3 (0.1-0.6); Monocytes Percent Auto 7.3 % (2.6-8.5); Neutrophils Percent Auto 80.3 % (45.5-73.1); Nucleated Red Blood Cells Perc 0.1 % (0.0-0.2); Platelet Count Result 463 k/mm3 (150-375); Red Blood Count 4.21 M/mm3 (4.6-6.20); White Blood Count 18.6 K/mm3 (4.5-10.0)
[2023-12-12 06:38] LABS: Prothrombin Time 14.2 Seconds (11.1-14.7)
[2023-12-12 06:39] LABS: Alanine Aminotransferase 20 U/L (6-50); Albumin Level 3.6 g/dL (3.5-5.1); Alkaline Phosphatase 113 U/L (38-126); Anion Gap 5 mmol/L (8-16); Aspartate Amino Transferase 24 U/L (17-59); Bilirubin,Total 0.5 mg/dL (0.2-1.3); Blood Urea Nitrogen 29 mg/dL (9-20); Calcium 10.3 mg/dL (8.4-10.2); Carbon Dioxide 31 mmol/L (22-30); Chloride 104 mmol/L (98-107); Estimated CRCL calculation 67 ml/min; Estimated Glomerular Filt Rate > 60; Glucose 339 mg/dL (65-110); Lipase 85 U/L (23-300); Partial Thromboplastin Time 38.2 SECONDS (22.3-36.8); Potassium 4.8 mmol/L (3.4-5.0); Sodium 140 mmol/L (137-145)
[2023-12-12 06:49] LABS: Troponin I < 0.012 ng/mL (0.000-0.034)
--- NOTE | 2023-12-12 07:38 | ED.GENADULT ---
HPI - General Adult General Chief complaint: Shortness of Breath/Dyspnea Stated complaint: BACK PAIN, SOB, ON HOME O2 Time Seen by Provider: 12/12/23 06:55 History of Present Illness HPI narrative: 63-year-old male with history of CVA, depression, CHF, myelofibrosis, peripheral vascular disease and type 2 diabetes presenting to the emergency department for evaluation chronic pain affecting his shortness of breath. Patient is normally on 3 L of oxygen at all time and presents to the emergency department saturating well on his normal 3 L. patient is very well known to the emergency department for frequent visits. During patient's previous visits he is always on 3 L, is typically tachycardic heart rate between 100-120 and has a leukocytosis. At time of presentation to emergency department today patient is resting comfortably and appears to be in no distress. Related Data Home Medications Medication Instructions Recorded Confirmed budesonide-formoterol HFA 160 2 puff inhalation Q12H 11/08/20 11/13/23 mcg-4.5 mcg/actuation aerosol inhaler (Symbicort) cholecalciferol (vitamin D3) 1,250 1,250 mcg PO WEEKLY 11/08/20 11/13/23 mcg (50,000 unit) capsule montelukast 10 mg tablet 10 mg PO HS 11/08/20 11/13/23 pregabalin 100 mg capsule (Lyrica) 100 mg PO Q12H 07/17/22 11/13/23 magnesium oxide 400 mg (241.3 mg 400 mg PO BID 08/26/22 11/13/23 magnesium) tablet zolpidem 10 mg tablet (Ambien) 10 mg PO HS PRN Insomnia 12/24/22 11/13/23 metformin 1,000 mg tablet 1,000 mg PO Q12H 01/11/23 11/13/23 pravastatin 40 mg tablet 40 mg PO HS 01/11/23 11/13/23 insulin aspart U-100 100 unit/mL 8 unit subcut ACINSULIN 05/30/23 11/13/23 (3 mL) subcutaneous pen (Novolog FlexPen U-100 Insulin aspart) insulin detemir U-100 100 unit/mL 54 unit subcut DAILY 05/30/23 11/13/23 (3 mL) subcutaneous pen (Levemir FlexPen) torsemide 20 mg tablet 20 mg PO DAILY PRN Swellng 05/30/23 11/13/23 Imodium A-D 2 mg PO BID PRN Diarrhea 09/09/23 11/13/23 Refresh 0.5 % EACH EYE BID PRN Dry Eye(S) 09/09/23 11/13/23 acetaminophen 650 mg PO Q4H PRN minor pain and 09/09/23 11/13/23 fever cetirizine 10 mg PO QAM 09/09/23 11/13/23 dulaglutide 0.75 mg/0.5 mL 0.5 mg subcut WEEKLY 09/09/23 11/13/23 subcutaneous pen injector (Trulicity) lactase 9,000 units PO AC 09/09/23 11/13/23 metolazone 2.5 mg tablet See Rx Instructions .Route .COMPLEX 09/09/23 11/13/23 mupirocin 2 % topical ointment 2 applic topical BID 09/09/23 11/13/23 Gemtesa 75 mg PO DAILY 11/13/23 11/13/23 tamsulosin 0.4 mg capsule 0.4 mg PO HS 11/13/23 11/13/23 venlafaxine 75 mg tablet 75 mg PO Q12H 11/13/23 11/13/23 Allergies Allergy/AdvReac Type Severity Reaction Status Date / Time naproxen Allergy Intermediate SWELLING Verified 12/06/23 18:53 cefepime Allergy Unknown Blister Verified 12/06/23 18:53 iohexol Allergy Unknown Unknown Verified 12/06/23 18:53 [From contrast - CT, X-RAY] iodine Allergy Other Verified 12/06/23 18:53 vancomycin AdvReac Diarrhea Verified 12/06/23 18:53 Review of Systems Review of Systems: All systems reviewed & are unremarkable except as noted in HPI and below PMFSH Past Medical History Medical History Anemia Anxiety Benign prostatic hyperplasia Cerebrovascular accident (2014) Chronic anticoagulation Chronic kidney disease Claustrophobia Depression Diastolic heart failure Echo 08/2022: Mild concentric hypertrophy, systolic function 74%, grade 2 diastolic dysfunction, mild left atrial enlargement, right ventricle not well visualized but grossly normal Enterobacter sepsis Secondary to UTI. Fracture of proximal end of left humerus Left cervical radiculopathy Migraines MRSA infection Myelofibrosis Neuropathy Obstructive sleep apnea Noncompliant with CPAP Peripheral vascular disease Pulmonary embolism (01/2020) Type 2 diabetes mellitus Surgical History Surgical History (Reviewed 12/04/23 @ 11:1
[2023-12-12 09:24] LABS: Troponin I 0.014 ng/mL (0.000-0.034)
== END 2023-12-12 10:55 ==
PROVIDERS: Emergency Medicine; Emergency Provider Emergency Medicine; PCP Nurse Practitioner Family
DX: R07.89 Other chest pain (principal); G89.29 Other chronic pain; E11.22 Type 2 diabetes mellitus with diabetic chronic kidney disease; B18.9 Chronic viral hepatitis, unspecified; E11.51 Type 2 diabetes mellitus with diabetic peripheral angiopathy without gangrene; I73.9 Peripheral vascular disease, unspecified; I50.30 Unspecified diastolic (congestive) heart failure; D64.9 Anemia, unspecified; D75.81 Myelofibrosis; N40.0 Benign prostatic hyperplasia without lower urinary tract symptoms; G47.33 Obstructive sleep apnea (adult) (pediatric); Z99.81 Dependence on supplemental oxygen; Z86.14 Personal history of Methicillin resistant Staphylococcus aureus infection; Z86.73 Personal history of transient ischemic attack (TIA), and cerebral infarction without residual deficits; Z87.891 Personal history of nicotine dependence; Z89.431 Acquired absence of right foot; Z90.49 Acquired absence of other specified parts of digestive tract; Z90.81 Acquired absence of spleen; Z79.4 Long term (current) use of insulin; Z79.85 Long-term (current) use of injectable non-insulin antidiabetic drugs; Z79.01 Long term (current) use of anticoagulants; R00.0 Tachycardia, unspecified; I49.1 Atrial premature depolarization
CPT/HCPCS: 36415; 71045; 80053; 83690; 84484; 85025; 85610; 85730; 93005; 99284

== ENCOUNTER 2023-12-30 04:31 | Emergency (ER) | payer MEDICARE, SELFPAY ==
--- NOTE | ~2023-12-30 | CT_ITS ---
CT head without contrast Indication: Head trauma COMPARISON: 11/13/2023 Technique: Serial scans were obtained through the brain without the administration of contrast. Dose reduction technique was used on this scan by utilizing automated exposure control and iterative recon struction technique. The dose-length product (DLP) was 681.00 mGy-cm. Findings: There is no evidence of intracranial hemorrhage, mass lesion, or acute infarct. Extensive c hronic right MCA distribution infarct is unchanged. Stable chronic lacunar infarct in the left undraped artist model al capsule. The ventricles and subarachnoid spaces are dilated, consistent with mild to moderate atro phy. Low attenuation regions are seen within the periventricular white matter bilaterally, likely re presenting changes from chronic microvascular ischemic disease. There is no evidence of edema, mass effect or midline shift. The visualized paranasal sinuses and mastoid air cells are clear. Impression: No intracranial hemorrhage, mass, or acute infarct. Stable chronic infarcts, as above. Atrophy and chronic white matter changes, as above. Reviewed, dictated and finalized at location . Impression: No intracranial hemorrhage, mass, or acute infarct. Stable chronic infarcts, as above. Atrophy and chronic white matter changes, as above.
--- NOTE | ~2023-12-30 | CT_ITS ---
Noncontrast CT scan of the cervical spine Technique: Multiple contiguous axial [address] images of the cervical spine were obtained and rec onstructed in 2D sagittal and coronal planes on the acquisition scanner. Dose reduction technique was used on this scan by utilizing automated exposure control, adjustment of the mA and/or kV according to patient size. The dose-length product (DLP) was 600.17 mGy-cm. Clinical History: Pain Findings: No fractures or dislocations. There is fusion of the right C3-C4 and C4-C5 facet joints. T here is mild degenerative changes reticulation the odontoid process with the anterior arch of C1. The re is right neural foraminal narrowing at C3-C4, the right facet arthropathy. There is probable mild right neural foraminal narrowing at C4-C5, right-sided facet arthropathy. Intervertebral disc spaces are relatively well-preserved. No prevertebral soft tissue swelling. Impression: No fracture or subluxation of the cervical spine. Degenerative change, as above. Reviewed, dictated and finalized at location . Impression: No fracture or subluxation of the cervical spine. Degenerative change, as above.
--- NOTE | ~2023-12-30 | XR_ITS ---
Portable chest x-ray Comparison: 12/12/2023 Clinical History: Status post fall Findings: Lungs are clear, without focal consolidation or pleural effusion. Cardiomediastinal silho uette is stable. Stable chronic left rib fracture deformities. Impression: No acute abnormality evident. Reviewed, dictated and finalized at [facility]. Impression: No acute abnormality evident.
--- NOTE | ~2023-12-30 | XR_ITS ---
AP view of the pelvis Clinical history: Pain Findings: No acute fracture or dislocation is seen. Osseous alignment is anatomic. Bilateral hip and SI joint spaces are preserved. Soft tissues are unremarkable. Impression: No significant abnormality is seen. Reviewed, dictated and finalized at location M. Impression: No significant abnormality is seen.
[2023-12-30 04:33] VITALS: BP 117/61; PULSE 119; RESP 19; TEMP 36.7; O2SAT 95
--- NOTE | 2023-12-30 04:37 | ED.GENADULT ---
HPI - General Adult General Chief complaint: Back Pain/Injury Stated complaint: roll out of bed Time Seen by Provider: 12/30/23 04:51 History of Present Illness HPI narrative: This is a 63-year-old male well known to our emergency department presenting after a fall out of bed. Patient said he rolled out of bed landed on his head. Patient uses Eliquis for AFib. Patient is also complaining of pain between her shoulder blades which is chronic. Pain denies fevers, chills, chest pain, difficulty breathing or abdominal pain. Patient says he does not want to go back to the group home. He says they do not treat him well but he cannot give any specifics of what they are doing. Patient just left a previous group home. At his previous group home the patient frequently get into disagreements with staff and other patients and then call ambulance to go to the hospital for back pain. Patient called the ambulance so much that the chief for the fire department had to go speak to him about misusing EMS services. Related Data Home Medications Medication Instructions Recorded Confirmed budesonide-formoterol HFA 160 2 puff inhalation Q12H 11/08/20 11/13/23 mcg-4.5 mcg/actuation aerosol inhaler (Symbicort) cholecalciferol (vitamin D3) 1,250 1,250 mcg PO WEEKLY 11/08/20 11/13/23 mcg (50,000 unit) capsule montelukast 10 mg tablet 10 mg PO HS 11/08/20 11/13/23 pregabalin 100 mg capsule (Lyrica) 100 mg PO Q12H 07/17/22 11/13/23 magnesium oxide 400 mg (241.3 mg 400 mg PO BID 08/26/22 11/13/23 magnesium) tablet zolpidem 10 mg tablet (Ambien) 10 mg PO HS PRN Insomnia 12/24/22 11/13/23 metformin 1,000 mg tablet 1,000 mg PO Q12H 01/11/23 11/13/23 pravastatin 40 mg tablet 40 mg PO HS 01/11/23 11/13/23 insulin aspart U-100 100 unit/mL 8 unit subcut ACINSULIN 05/30/23 11/13/23 (3 mL) subcutaneous pen (Novolog FlexPen U-100 Insulin aspart) insulin detemir U-100 100 unit/mL 54 unit subcut DAILY 05/30/23 11/13/23 (3 mL) subcutaneous pen (Levemir FlexPen) torsemide 20 mg tablet 20 mg PO DAILY PRN Swellng 05/30/23 11/13/23 Imodium A-D 2 mg PO BID PRN Diarrhea 09/09/23 11/13/23 Refresh 0.5 % EACH EYE BID PRN Dry Eye(S) 09/09/23 11/13/23 acetaminophen 650 mg PO Q4H PRN minor pain and 09/09/23 11/13/23 fever cetirizine 10 mg PO QAM 09/09/23 11/13/23 dulaglutide 0.75 mg/0.5 mL 0.5 mg subcut WEEKLY 09/09/23 11/13/23 subcutaneous pen injector (Trulicity) lactase 9,000 units PO AC 09/09/23 11/13/23 metolazone 2.5 mg tablet See Rx Instructions .Route .COMPLEX 09/09/23 11/13/23 mupirocin 2 % topical ointment 2 applic topical BID 09/09/23 11/13/23 Gemtesa 75 mg PO DAILY 11/13/23 11/13/23 tamsulosin 0.4 mg capsule 0.4 mg PO HS 11/13/23 11/13/23 venlafaxine 75 mg tablet 75 mg PO Q12H 11/13/23 11/13/23 Allergies Allergy/AdvReac Type Severity Reaction Status Date / Time naproxen Allergy Intermediate SWELLING Verified 12/30/23 04:43 cefepime Allergy Unknown Blister Verified 12/30/23 04:43 iohexol Allergy Unknown Unknown Verified 12/30/23 04:43 [From contrast - CT, X-RAY] iodine Allergy Other Verified 12/30/23 04:43 vancomycin AdvReac Diarrhea Verified 12/30/23 04:43 [facility] Past Medical History Medical History Anemia Anxiety Benign prostatic hyperplasia Cerebrovascular accident (2014) Chronic anticoagulation Chronic kidney disease Claustrophobia Depression Diastolic heart failure Echo 08/2022: Mild concentric hypertrophy, systolic function 74%, grade 2 diastolic dysfunction, mild left atrial enlargement, right ventricle not well visualized but grossly normal Enterobacter sepsis Secondary to UTI. Fracture of proximal end of left humerus Left cervical radiculopathy Migraines MRSA infection Myelofibrosis Neuropathy Obstructive sleep apnea Noncompliant with CPAP Peripheral vascular disease Pulmonary embolism (01/2020) Type 2 diabetes mellitus Surgical History
--- NOTE | 2023-12-30 04:45 | PC.NURSE ---
Pt called out wanting to have a starry and food. this rn educated pt on not being able to eat or drink until scan results are back.
--- NOTE | 2023-12-30 04:50 | PC.NURSE ---
Pt called out requesting water. pt again educated on importance of not eating and drinking until scan results are back.
--- NOTE | 2023-12-30 05:15 | PC.NURSE ---
Pt called out requesting to speak to his medical doctor nuclear medicine due to treatment at [facility]. Informed pt on facility not having phones in room.
--- NOTE | 2023-12-30 05:20 | PC.NURSE ---
Pt pressed call light requesting for phone again. pt reeducated that this facility does not have phones in room.
[2023-12-30 05:21] VITALS: O2SAT 97
--- NOTE | 2023-12-30 05:35 | PC.NURSE ---
Pt called out requesting starry to drink. pt re educated on why he cannot consume food and drink until scans are back.
--- NOTE | 2023-12-30 05:40 | PC.NURSE ---
Pt called out requesting to speak to senior budget analyst regarding his care at [facility]. pt informed again we do not have phones in room for him to call. pt asked to be pushed out to waiting room on stretcher.
[2023-12-30 05:44] VITALS: BP 135/69; PULSE 115; RESP 16; O2SAT 95
--- NOTE | 2023-12-30 06:00 | PC.NURSE ---
pt called out requesting tv to be adjusted. pt informed tv cannot be adjusted.
--- NOTE | 2023-12-30 06:15 | PC.NURSE ---
pt called out asking for drink. pt provided starry at this time as scan results are back and negative. patient transport being set up at this time.
--- NOTE | 2023-12-30 06:20 | PC.NURSE ---
pt called out requesting more to drink. pt still has full cup of starry. pt provided additional water at this time.
--- NOTE | 2023-12-30 06:22 | PC.NURSE ---
pt called out wanting to be wheeled out to waiting room to use phone. pt educated on why he cannot be placed into waiting room.
--- NOTE | 2023-12-30 06:25 | PC.NURSE ---
pt called out wanting more to drink. pt provided more water at this time.
[2023-12-30 06:30] VITALS: BP 149/76; PULSE 120; RESP 17; O2SAT 97
--- NOTE | 2023-12-30 06:30 | PC.NURSE ---
pt called out wanting to be repositioned. pt repositioned at this time and provided more water per request.
--- NOTE | 2023-12-30 06:32 | PC.NURSE ---
Pt yelling in department wanting more water. pt provided more water at this time.
--- NOTE | 2023-12-30 06:35 | PC.NURSE ---
pt yelling in department wanting tv to be adjusted. pt educated for the second time that the tv does not move.
--- NOTE | 2023-12-30 06:38 | PC.NURSE ---
pt called out requesting more water. pt provided more water and educated on appropriate use of call light.
--- NOTE | 2023-12-30 06:38 | PC.NURSE ---
pt called out due to beeping on monitor. pt removed pulse ox and wanted it to be put back on.
--- NOTE | 2023-12-30 06:42 | PC.NURSE ---
pt called out wanting more water. pt provided more water and educated on appropriate use of call light.
--- NOTE | 2023-12-30 06:45 | PC.NURSE ---
pt heard this RN in room next door and started yelling requesting more water. this RN educated pt on how to be respectful of others in the ED and appropriate use of call light, again.
--- NOTE | 2023-12-30 06:48 | PC.NURSE ---
pt called out for more water. more water provided. pt educated on appropriate use of call light.
--- NOTE | 2023-12-30 06:50 | PC.NURSE ---
pt called out x4 times in last 5 minutes with multiple requests. pt provided more water and educated on appropraite use of call light.
--- NOTE | 2023-12-30 06:55 | PC.NURSE ---
pt has called out x6 times in last 5 minutes with requests of more water. pt educated on appropriate use of call light and informed on ETA of ambulance to take him home.
[2023-12-30 07:02] VITALS: BP 174/64; PULSE 112; RESP 20; O2SAT 98
--- NOTE | 2023-12-30 07:02 | PC.NURSE ---
pt called out x3 times during BSSR. This RN and EDUARDO Fritz educated pt on appropriate use of call light and provided pt more water.
--- NOTE | 2023-12-30 07:26 | PC.NURSE ---
BSSR given to EDUARDO Fritz at this time.
--- NOTE | 2023-12-30 07:30 | PC.NURSE ---
Pt has called out 3x since getting report to say im ready to leave
--- NOTE | 2023-12-30 07:34 | PC.NURSE ---
Pt called out saying im out of water pt water refilled
--- NOTE | 2023-12-30 07:38 | PC.NURSE ---
per admin secretary pt called out 4x saying im ready to leave
--- NOTE | 2023-12-30 07:45 | PC.NURSE ---
Pt called out 3x while this RN attempting to check in another pt
--- NOTE | 2023-12-30 07:48 | PC.NURSE ---
Per executive legal secretary pt has called out at 0740. [id number], [id number], [id number], [id number], [id number]
--- NOTE | 2023-12-30 07:50 | PC.NURSE ---
pt called out and payroll secretary asks what he needs and he replies nothing
--- NOTE | 2023-12-30 08:09 | PC.NURSE ---
Per church secretary pt has called out at [id number],58, [id number],[id number]. Pt states i want to go back to [facility] Explained to pt that he is going to [place] and to please only use the call light for needs.
--- NOTE | 2023-12-30 08:10 | PC.NURSE ---
Pt moved to room 22, because room needed for another pt.
--- NOTE | 2023-12-30 08:41 | PC.NURSE ---
Per community youth secretary pt has called out 24x. repeatedly saying he wants to leave want to go to [place]
--- NOTE | 2023-12-30 08:49 | PC.NURSE ---
Christinater now at bedside with pt
--- NOTE | 2023-12-30 08:50 | PC.NURSE ---
transport update return to [facility] eta 1hr
--- NOTE | 2023-12-30 10:27 | PC.NURSE ---
[facility] here to transport pt to [facility]. Pt adamantly stating i dont want to go to [facility]. I want to go to [facility] states they can't transport pt that is A&OX4 and refusing. Nino, assistant product manager, contacted and spoke with pt and is going to call [facility] and [facility] getting information.
[2023-12-30 10:33] VITALS: BP 141/77; PULSE 110; RESP 18; O2SAT 97
--- NOTE | 2023-12-30 10:35 | PC.NURSE ---
[facility] called and DON states pt is not allowed back at their facility. they also state that his belongings are being transfers to [facility] today. Told pt this and he states he will go back to [facility].
== END 2023-12-30 11:15 | disposition home or self-care (01) ==
PROVIDERS: Emergency Provider Emergency Medicine; PCP Nurse Practitioner Family
DX: S09.90XA Unspecified injury of head, initial encounter (principal); G40.909 Epilepsy, unspecified, not intractable, without status epilepticus; E11.22 Type 2 diabetes mellitus with diabetic chronic kidney disease; N18.9 Chronic kidney disease, unspecified; I48.91 Unspecified atrial fibrillation; I50.30 Unspecified diastolic (congestive) heart failure; E11.51 Type 2 diabetes mellitus with diabetic peripheral angiopathy without gangrene; I73.9 Peripheral vascular disease, unspecified; E11.40 Type 2 diabetes mellitus with diabetic neuropathy, unspecified; N40.0 Benign prostatic hyperplasia without lower urinary tract symptoms; G47.33 Obstructive sleep apnea (adult) (pediatric); Z86.73 Personal history of transient ischemic attack (TIA), and cerebral infarction without residual deficits; Z86.2 Personal history of diseases of the blood and blood-forming organs and certain disorders involving the immune mechanism; Z86.14 Personal history of Methicillin resistant Staphylococcus aureus infection; Z86.711 Personal history of pulmonary embolism; Z87.891 Personal history of nicotine dependence; Z89.431 Acquired absence of right foot; Z90.49 Acquired absence of other specified parts of digestive tract; Z90.81 Acquired absence of spleen; Z89.412 Acquired absence of left great toe; Z79.84 Long term (current) use of oral hypoglycemic drugs; Z79.85 Long-term (current) use of injectable non-insulin antidiabetic drugs; Z79.4 Long term (current) use of insulin; W06.XXXA Fall from bed, initial encounter
CPT/HCPCS: 70450; 71045; 72125; 72170; 99284

== ENCOUNTER 2024-01-12 09:54 | Emergency (ER) | payer MEDICARE, SELFPAY ==
[2024-01-12] VITALS (7 sets, daily range): BP systolic 116–132; BP diastolic 59–72; PULSE 106–109; RESP 16–19; TEMP 36.8; O2SAT 98–100
--- NOTE | ~2024-01-12 | XR_ITS ---
EXAMINATION: XR chest 2V DATE: 01/12/2024 10:36 INDICATION: Chest pain and shortness of breath TECHNIQUE: frontal and lateral views of the chest were obtained. COMPARISON: Chest radiograph dated 12/30/23 FINDINGS: The lungs remain clear with no focal airspace opacities, pulmonary edema, pleural effusion or pneumot horax. The cardiomediastinal silhouette is normal. Multiple old healed left-sided rib fractures. Chol ecystectomy clips in right upper quadrant. IMPRESSION: 1. No acute cardiopulmonary disease. Reviewed, dictated and finalized at location A.
--- NOTE | 2024-01-12 10:04 | ECG_ITS ---
Measurements Intervals [place] Rate: 107 P: 23 WA: 151 QRS: 7 QRSD: 99 T: 66 QT: 338 QTc: 452 Interpretive Statements SINUS TACHYCARDIA BORDERLINE ST-T WAVE ABNORMALITY- LAT/HIGH LAT LEADS BASELINE ARTIFACT- I, AVR, V6 ABNORMAL ECG COMPARED TO ECG 12/12/2023 06:12:40 ST-T WAVE ABNORMALITY NOW PRESENT Electronically Signed On 01-12-2024 10:20:59 CDT by Phillip Rodriguez D.O.
[2024-01-12] MEDS: MORPHINE SULFATE (*CRX) 2 MG/ML INJ IV PUSH (10:58)
--- NOTE | 2024-01-12 11:03 | ED.CHESTPAIN ---
HPI - Chest Pain General Chief Complaint: Chest Pain Stated Complaint: CP Time Seen by Provider: 01/12/24 10:41 History of Present Illness HPI narrative: Pt presents with pain in lest chest and left ribs in back for a few days. Pt says he has pain only when he coughs and not otherwise. Pt says his cough is productive but denies fever. Pt has numerous chronic complaints about his left hand and his neuropathy in his feet. Related Data Home Medications Medication Instructions Recorded Confirmed budesonide-formoterol HFA 160 2 puff inhalation Q12H 11/08/20 11/13/23 mcg-4.5 mcg/actuation aerosol inhaler (Symbicort) cholecalciferol (vitamin D3) 1,250 1,250 mcg PO WEEKLY 11/08/20 11/13/23 mcg (50,000 unit) capsule montelukast 10 mg tablet 10 mg PO HS 11/08/20 11/13/23 pregabalin 100 mg capsule (Lyrica) 100 mg PO Q12H 07/17/22 11/13/23 magnesium oxide 400 mg (241.3 mg 400 mg PO BID 08/26/22 11/13/23 magnesium) tablet zolpidem 10 mg tablet (Ambien) 10 mg PO HS PRN Insomnia 12/24/22 11/13/23 metformin 1,000 mg tablet 1,000 mg PO Q12H 01/11/23 11/13/23 pravastatin 40 mg tablet 40 mg PO HS 01/11/23 11/13/23 insulin aspart U-100 100 unit/mL 8 unit subcut ACINSULIN 05/30/23 11/13/23 (3 mL) subcutaneous pen (Novolog FlexPen U-100 Insulin aspart) insulin detemir U-100 100 unit/mL 54 unit subcut DAILY 05/30/23 11/13/23 (3 mL) subcutaneous pen (Levemir FlexPen) torsemide 20 mg tablet 20 mg PO DAILY PRN Swellng 05/30/23 11/13/23 Imodium A-D 2 mg PO BID PRN Diarrhea 09/09/23 11/13/23 Refresh 0.5 % EACH EYE BID PRN Dry Eye(S) 09/09/23 11/13/23 acetaminophen 650 mg PO Q4H PRN minor pain and 09/09/23 11/13/23 fever cetirizine 10 mg PO QAM 09/09/23 11/13/23 dulaglutide 0.75 mg/0.5 mL 0.5 mg subcut WEEKLY 09/09/23 11/13/23 subcutaneous [facility]) lactase 9,000 units PO AC 09/09/23 11/13/23 metolazone 2.5 mg tablet See Rx Instructions .Route .COMPLEX 09/09/23 11/13/23 mupirocin 2 % topical ointment 2 applic topical BID 09/09/23 11/13/23 Gemtesa 75 mg PO DAILY 11/13/23 11/13/23 tamsulosin 0.4 mg capsule 0.4 mg PO HS 11/13/23 11/13/23 venlafaxine 75 mg tablet 75 mg PO Q12H 11/13/23 11/13/23 Allergies Allergy/AdvReac Type Severity Reaction Status Date / Time naproxen Allergy Intermediate SWELLING Verified 12/30/23 04:43 cefepime Allergy Unknown Blister Verified 12/30/23 04:43 iohexol Allergy Unknown Unknown Verified 12/30/23 04:43 [From contrast - CT, X-RAY] iodine Allergy Other Verified 12/30/23 04:43 vancomycin AdvReac Diarrhea Verified 12/30/23 04:43 Review of Systems Review of Systems: All systems reviewed & are unremarkable except as noted in HPI and below PMFSH Past Medical History Medical History Anemia Anxiety Benign prostatic hyperplasia Cerebrovascular accident (2014) Chronic anticoagulation Chronic kidney disease Claustrophobia Depression Diastolic heart failure Echo 08/2022: Mild concentric hypertrophy, systolic function 74%, grade 2 diastolic dysfunction, mild left atrial enlargement, right ventricle not well visualized but grossly normal Enterobacter sepsis Secondary to UTI. 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
--- NOTE | 2024-01-12 11:03 | PC.NURSE ---
Central Office Frame Wirer called for assistance drawing lab work for pt.
[2024-01-12 11:26] LABS: Basophils Absolute Auto 0.1 K/mm3 (0.0-0.1); Basophils Percent Auto 0.5 % (0.2-1.2); Eosinophils Absolute Auto 0.5 K/mm3 (0-0.3); Eosinophils Percent Auto 2.5 % (0-4.4); Hematocrit 37.4 % (42.0-52.0); Hemoglobin 12.7 g/dL (14.0-18.0); Immature Granulocyte Percent A 0.5 % (0-0.5); Lymphocytes Percent Auto 11.8 % (18.3-44.2); Mean Corpuscular Hemoglobin 30.6 pg (26-34); Mean Corpuscular Volume 90.1 fl (80-100); Mean Platelet Volume 10.5 fl (7.4-10.4); Monocytes Absolute Auto 1.6 K/mm3 (0.1-0.6); Monocytes Percent Auto 7.9 % (2.6-8.5); Neutrophils Absolute Auto 15.6 K/mm3 (1.3-6.7); Neutrophils Percent Auto 76.8 % (45.5-73.1); Platelet Count Result 480 k/mm3 (150-375); Red Blood Count 4.15 M/mm3 (4.6-6.20); Red Cell Distribution Width 13.6 % (11.5-14.5); White Blood Count 20.3 K/mm3 (4.5-10.0)
--- NOTE | 2024-01-12 11:30 | PC.NURSE ---
Pt reports chest pain now resolved.
[2024-01-12 11:37] LABS: Alanine Aminotransferase 17 U/L (6-50); Albumin Level 3.3 g/dL (3.5-5.1); Alkaline Phosphatase 110 U/L (38-126); Anion Gap 1 mmol/L (4-12); Aspartate Amino Transferase 25 U/L (17-59); Bilirubin,Total 0.5 mg/dL (0.2-1.3); Blood Urea Nitrogen 27 mg/dL (9-20); Calcium 9.2 mg/dL (8.4-10.2); Carbon Dioxide 29 mmol/L (22-30); Chloride 100 mmol/L (98-107); Estimated CRCL calculation 78 ml/min; Estimated Glomerular Filt Rate > 60; Glucose 228 mg/dL (65-110); Lipase 84 U/L (23-300); Potassium 4.5 mmol/L (3.4-5.0); Prothrombin Time 13.9 Seconds (11.1-14.7); Sodium 130 mmol/L (137-145)
[2024-01-12 11:38] LABS: Partial Thromboplastin Time 34.3 Seconds (22.3-36.8)
[2024-01-12 11:48] LABS: Troponin I < 0.012 ng/mL (0.000-0.034)
== END 2024-01-12 13:20 | disposition home or self-care (01) ==
PROVIDERS: Emergency Provider Emergency Medicine; PCP Nurse Practitioner Family
DX: R07.81 Pleurodynia (principal); E11.22 Type 2 diabetes mellitus with diabetic chronic kidney disease; N18.9 Chronic kidney disease, unspecified; I48.91 Unspecified atrial fibrillation; I50.30 Unspecified diastolic (congestive) heart failure; E11.51 Type 2 diabetes mellitus with diabetic peripheral angiopathy without gangrene; I73.9 Peripheral vascular disease, unspecified; E11.40 Type 2 diabetes mellitus with diabetic neuropathy, unspecified; N40.0 Benign prostatic hyperplasia without lower urinary tract symptoms; G47.33 Obstructive sleep apnea (adult) (pediatric); Z86.73 Personal history of transient ischemic attack (TIA), and cerebral infarction without residual deficits; Z86.2 Personal history of diseases of the blood and blood-forming organs and certain disorders involving the immune mechanism; Z86.14 Personal history of Methicillin resistant Staphylococcus aureus infection; Z86.711 Personal history of pulmonary embolism; Z87.891 Personal history of nicotine dependence; Z89.431 Acquired absence of right foot; Z90.49 Acquired absence of other specified parts of digestive tract; Z90.81 Acquired absence of spleen; Z79.84 Long term (current) use of oral hypoglycemic drugs; Z79.85 Long-term (current) use of injectable non-insulin antidiabetic drugs; Z79.4 Long term (current) use of insulin; R00.0 Tachycardia, unspecified; R94.31 Abnormal electrocardiogram [ECG] [EKG]
CPT/HCPCS: 36415; 71046; 80053; 83690; 84484; 85025; 85610; 85730; 93005; 96374; 99284; J2270